=== PATIENT | female | born 1990 | race Caucasian/White ===

== ENCOUNTER 2018-05-05 20:56 | Emergency (ER) | payer MEDICAID, SELFPAY ==
[2018-05-05 20:58] VITALS: BP 139/77; PULSE 115; RESP 20; TEMP 36.7; O2SAT 95; BMI 34.7
[2018-05-05 21:46] LABS: Absolute Lymphocyte Count 2.76 X10^3/ul (0.83-4.51); Absolute Neutrophil Count 6.3 X10^3/uL (2.0-7.7); Basophil# 0.03 X10^3/uL; Basophil% 0.3 % (0-1); Eosinophil# 0.49 X10^3/uL; Eosinophils% 4.7 % (0-5); Hematocrit 37.1 % (37-47); Hemoglobin 12.5 g/dl (12.0-15.0); Lymphocyte # 2.76 X10^3/ul (4.0); Lymphocyte % 26.3 % (19-41); Mean Corp Hgb Conc 33.7 g/gl (32-36); Mean Corpuscular Volume 89.2 fL (81-99); Mean Platelet Vol. 9.9 fl (6.2-12.0); Monocyte# 0.94 X10^3/uL; Neutrophil # 6.26 X10^3/uL (2.7-7.7); Neutrophil % 59.5 % (47-70); Platelet Count 300 K/mm3 (150-450); RBC Distribution Width CV 13.2 % (11.6-14.6); RBC Distribution Width SD 42.5 fl (35.1-43.9); Red Blood Count 4.16 M/mm3 (4.2-5.4); White Blood Count 10.5 K/mm3 (4.4-11.0)
[2018-05-05 21:50] LABS: Differential Indicated SCAN CRITERIA MET; POSITIVE COUNT NO; POSITIVE DIFFERENTIAL NO; POSITIVE MORPHOLOGY YES
[2018-05-05 21:58] LABS: ALB/GLOB Ratio 0.9 RATIO (0.9-2.4); AST(SGOT) 14 U/L (15-37); Alanine Aminotransfer ALT/SGPT 19 U/L (13-56); Albumin, Serum 3.3 g/dL (3.2-5.0); Alkaline Phosphatase 59 U/L (45-117); Anion Gap 7 (5-15); BUN 7 mg/dL (7-18); BUN/Creat Ratio 10.3 RATIO (10-20); Calcium,Total 8.6 mg/dL (8.5-10.1); Chloride 107 mmol/L (98-107); Creatinine, Serum 0.68 mg/dL (0.55-1.02); EST Glomerular Filtration Rate 110 mL/min (>60); Est Glom Filt Rate - Afr Amer 133 mL/min (>60); Estimated Creatinine Clearance 129.87 ml/min; Globulin 3.8 g/dL (2.2-4.2); Glucose 80 mg/dL (74-106); Potassium 3.6 mmol/L (3.5-5.1); Protein, Total 7.1 g/dL (6.4-8.2); Sodium Level 139 mmol/L (136-145)
[2018-05-05 22:09] LABS: Anisocytosis RARE; Platelet Estimate ADEQUATE (ADEQ)
--- NOTE | 2018-05-05 22:13 | ED.VISSUMM ---
- ER Visit Summary Date of Service: 05/05/18 Chief Complaint: Frequent tremors into seizure History of Present Illness: The patient is a 27 F who is unable to give history because she does not have recall. Once boyfriend arrived he informed me she was sitting in the library and had a staring episode followed by startle response and would not speak. She began to have abnormal movement of her hands. He states she is going to have another seizure. She then began to stare. There was no loss of postural tone. When I moved towards her to untie her shoelaces to perform neurologic exam i.e. check for Babinski sign and clonus she had a startle response. She gasped moves all extremities and looked at her boyfriend. He informed me that this is what he observed and labeled as a seizure. Patient was not postictal. She denies headache. She denies visual, ocular auditory symptoms. She denies trouble with speech or swallowing. She denies cardiac respiratory symptoms. Does report nausea without vomiting diarrhea. She does report frequency without dysuria or hematuria. She denies problems with balance or walking. She informed me that she was seen by her OB yesterday who recommended she follow-up with Dr. Duckworth. Patient and boyfriend informed me the soonest available appointment to see Dr. Duckworth is July 15, 2018. Physical Examination: Vital signs noted and blood pressure is elevated and heart rate is elevated. Head is atraumatic normocephalic. Pupils are equal round reactive. Extraocular muscles are intact. TMs are pearly white with landmarks noted. Nares patent with no drainage. Posterior pharynx without erythema or exudate. Uvula is midline. There is no dysphonia or dysphasia. Trachea is midline. There is no stridor with auscultation of the neck. Heart is regular without murmur, gallop or rub. S1 and S2 are normal. Lungs are clear to auscultation with good movement of air bilaterally. Abdomen is soft nontender bowel sounds are present normal. Uterus is not palpable. She reports twin gestation 10 weeks. There is no CVA tenderness. She is alert oriented. There is poverty of speech. She is vague in responses as well. Motor is 5/5. Sensations intact. DTRs are 1+ at the biceps, brachialis, triceps, patella and ankle. There is no clonus or Babinski sign. Cranial nerves II through XII intact. Cerebellar testing with finger-nose to finger was performed adequately. Test Results: CBC and conference of metabolic panel are normal. Emergency Department Course and Treatment: The patient's unusual symptoms concerned she may have what right abnormality. She reported compliance with medication I was informed by her nurse that she has been seen with similar presentation and at that that time denied taking her medicines. Treatment Plan: What was observed are not seizures. Believe this is a stress response for undetermined reason since patient denies anxiety or stress. As noted she would have abnormal movement of her fingers and hands began to breathe more rapidly and then stared followed by a startle response with no loss of postural tone and no postictal state. In my professional medical opinion this does not represent a seizure. Disposition: Discharged to home to follow-up with counseling center Impression: Stress reaction for undetermined reason History of seizure disorder This note was generated with Wetradetogether dictation software. It may contain incorrect words, spelling, and punctuation that were not noted in review of the chart prior to signing ED Disposition - Plan for ED Patient: Disposition: Home or Assisted Living Chief Complaint: Seizure Instructions: ED Stress React Referrals: Care Physician,No Primary [Primary Care Provider] - Nikunj Tate [STAFF PHYSICIAN] - Keep Dasia appointment Declan Duckworth MD [STAFF PHYSICIAN] - Keep Dasia appointment
== END 2018-05-05 22:34 | disposition home or self-care (01) ==
PROVIDERS: Emergency Provider Emergency Medicine
DX: F43.0 Acute stress reaction (principal); G40.909 Epilepsy, unspecified, not intractable, without status epilepticus; E66.9 Obesity, unspecified; Z68.34 Body mass index [BMI] 34.0-34.9, adult
CPT/HCPCS: 80053; 85025; 99283; A4216

== ENCOUNTER 2018-08-13 18:15 | Outpatient (CLI) | payer MEDICAID, SELFPAY ==
[2018-08-13 18:44] VITALS: BMI 34.2
--- NOTE | 2018-08-14 02:52 | OB.TRI.NOTE ---
- Problem List (1) Dichorionic diamniotic twin in second trimester Status: Acute (2) Epilepsy affecting in second trimester Status: Acute History of Present Illness Date of Service: 08/13/18 Was patient seen by the physician?: Yes Reason For Visit: RULE OUT WELL-BEING Date of Service: 08/13/18 Final QUYEN: 12/05/18 Final QUYEN Source: US <20 weeks Gestational age: 23 Weeks and 6 Days History of Present Illness: Patient presents to triage with her . He reports that she has a history of epilepsy and has been having more frequent seizures. Her neurologist is through [facility] and per the patient and her , the next appointment they have with him is not until December. Per patient's , the neurologist won't see her because she is and they told us she couldn't be on medications. Patient's reports she usually has seizures weekly, but this week she has had two seizures. He was out at the store and came home to find the patient on the bedroom floor - she came to within 15 minutes of him being home. He anticipated that she had a seizure when he was gone. Patient denies remembering having a seizure. Patient is lucid, able to answer questions and denies any abdominal pain or discomforts. Patient denies vaginal bleeding or vaginal discharge. Patient's brought her in just to make sure the babies are okay. Patient is currently 24+ weeks with known di/di twin gestation . Allergies No Known Allergies Allergy (Verified 08/13/18 19:46) Review of Systems Constitutional: Denies: Chills, Fever, Weakness HEENT: Denies: Head Aches, Sinus Congestion, Sinus Drainage, Visual Changes Cardiovascular: Denies: Chest Pain, Orthopnea, Palpitations, Syncope Respiratory: Denies: Cough, Shortness of breath at rest, Sputum production Gastrointestinal: Denies: Abdominal Pain, Nausea, Vomiting Genitourinary: Denies: Dysuria, Frequency, Incontinence Gynecological: Denies: Vaginal bleeding, Vaginal discharge Musculoskeletal: Denies: Joint Pain, Joint Tenderness Skin: Denies: Rash, Wounds Neurological: Denies: Numbness, Tingling, Focal weakness Psychiatric: Denies: Anxiety, Depression, Homicidal Ideations, Suicidal Ideations Hematologic/ Lymphatic: Denies: Easy Bruising, Easy Bleeding Physical Exam Vitals: see nursing assessment for vital signs - normotensive and afebrile General: Alert, Oriented x3, Cooperative, No apparent distress Cardiovascular: Regular rate, Regular Rhythm Lungs: Normal air movement Abdomen: Soft, Non Tender, Non-Distended, Gravid Extremities:: No edema Neurological: Cranial nerves II-XII grossly intact, Deep Tendon Reflexes 2+/4 and Symmetrical Presentation: Unable to assess - SVE deferred - variable lie noted on ultrasound NST - FHR Rate Baby A Baseline: 150 Variability:: Moderate Accelerations:: None Decelerations:: None NST Reactive:: Yes, Appropriate for gestational age FHR Category:: Category I Uterine Activity:: None noted on tocometer - FHR Rate Baby B Baseline: 145 Variability:: Moderate Accelerations:: None Decelerations:: None NST Reactive:: Yes, Appropriate for gestational age FHR Category:: Category I Uterine Activity:: None noted on tocometer Impression/Plan 28 y/o @ 24+ weeks, Di/Di Twin Gestation, s/p epileptic seizure, Category I FHT P: 1) Consultation with Dr. Mijares OB back-up - as NST is category I tracing for both twins, patient can be discharged to home at this time 2) Patient has pending appt on 08/17/18 at [facility] with [facility] provider re: Hx of Epilepsy and Twin . Anticipate discussion at that visit re: reinitiating antiseizure medications with option for referral to [facility] neurologist who feels more comfortable managing patients 3) Discharge patient to home with FKC and PTL precautions. Beena HUDSON
--- NOTE | 2018-08-14 03:00 | OB.TRI.HP_ITS ---
- Problem List (1) Dichorionic diamniotic twin in second trimester Status: Acute (2) Epilepsy affecting in second trimester Status: Acute History of Present Illness Date of Service: 08/13/18 Was patient seen by the physician?: Yes Reason For Visit: RULE OUT WELL-BEING Date of Service: 08/13/18 Final QUYEN: 12/05/18 Final QUYEN Source: US <20 weeks Gestational age: 23 Weeks and 6 Days History of Present Illness: Patient presents to triage with her . He reports that she has a history of epilepsy and has been having more frequent seizures. Her neurologist is through [facility] and per the patient and her , the next appointment they have with him is not until December. Per patient's , the neurologist won't see her because she is and they told us she couldn't be on medications. Patient's reports she usually has seizures weekly, but this week she has had two seizures. He was out at the store and came home to find the patient on the bedroom floor - she came to within 15 minutes of him being home. He anticipated that she had a seizure when he was gone. Patient denies remembering having a seizure. Patient is lucid, able to answer questions and denies any abdominal pain or discomforts. Patient denies vaginal bleeding or vaginal discharge. Patient's brought her in just to make sure the babies are okay. Patient is currently 24+ weeks with known di/di twin gestation . Allergies No Known Allergies Allergy (Verified 08/13/18 19:46) Review of Systems Constitutional: Denies: Chills, Fever, Weakness HEENT: Denies: Head Aches, Sinus Congestion, Sinus Drainage, Visual Changes Cardiovascular: Denies: Chest Pain, Orthopnea, Palpitations, Syncope Respiratory: Denies: Cough, Shortness of breath at rest, Sputum production Gastrointestinal: Denies: Abdominal Pain, Nausea, Vomiting Genitourinary: Denies: Dysuria, Frequency, Incontinence Gynecological: Denies: Vaginal bleeding, Vaginal discharge Musculoskeletal: Denies: Joint Pain, Joint Tenderness Skin: Denies: Rash, Wounds Neurological: Denies: Numbness, Tingling, Focal weakness Psychiatric: Denies: Anxiety, Depression, Homicidal Ideations, Suicidal Ideations Hematologic/ Lymphatic: Denies: Easy Bruising, Easy Bleeding Physical Exam Vitals: see nursing assessment for vital signs - normotensive and afebrile General: Alert, Oriented x3, Cooperative, No apparent distress Cardiovascular: Regular rate, Regular Rhythm Lungs: Normal air movement Abdomen: Soft, Non Tender, Non-Distended, Gravid Extremities:: No edema Neurological: Cranial nerves II-XII grossly intact, Deep Tendon Reflexes 2+/4 and Symmetrical Presentation: Unable to assess - SVE deferred - variable lie noted on ultrasound NST - FHR Rate Baby A Baseline: 150 Variability:: Moderate Accelerations:: None Decelerations:: None NST Reactive:: Yes, Appropriate for gestational age FHR Category:: Category I Uterine Activity:: None noted on tocometer - FHR Rate Baby B Baseline: 145 Variability:: Moderate Accelerations:: None Decelerations:: None NST Reactive:: Yes, Appropriate for gestational age FHR Category:: Category I Uterine Activity:: None noted on tocometer Impression/Plan 28 y/o @ 24+ weeks, Di/Di Twin Gestation, s/p epileptic seizure, Category I FHT P: 1) Consultation with Dr. Mijares OB back-up - as NST is category I tracing for both twins, patient can be discharged to home at this time 2) Patient has pending appt on 08/17/18 at [facility] with [facility] provider re: Hx of Epilepsy and Twin . Anticipate discussion at that visit re: reinitiating antiseizure medications with option for referral to [facility] neurologist who feels more comfortable managing patients 3) Discharge patient to home with FKC and PTL precautions. Beena HUDSON
--- OUTSIDE RECORDS SUMMARY | 2018-10-17 10:34 | XMS RPT_ITS ---
:1990 Author Organization [facility] Care Team Providers Name Role Phone MIHIR CADET Attending Unavailable MIHIR CADET Attending Unavailable MIHIR CADET Referring Unavailable TOMMY CAMPBELL Attending Unavailable MIHIR CADET Referring Unavailable MIHIR CADET Referring Unavailable MIHIR CADET Attending Unavailable MIHIR CADET Referring Unavailable SHANNAN, TOMMY A Attending Unavailable MIHIR CADET Referring Unavailable MIHIR CADET Attending Unavailable MIHIR CADET Referring Unavailable CAMPBELL, TOMMY A Attending Unavailable MIHIR CADET Referring Unavailable MIHIR CADET Attending Unavailable CAMPBELL, TOMMY A Referring Unavailable CAMPBELL, TOMMY A Referring Unavailable CAMPBELL, TOMMY A Attending Unavailable CAMPBELL, TOMMY A Referring Unavailable Gagandeep Herring Attending Unavailable Gagandeep Herring Referring Unavailable Primay Care Physicia, No Primary Care Unavailable Nga Soares Attending Unavailable Nga Soares Referring Unavailable Primay Care Physicia, No Primary Care Unavailable Primay Care Physicia, No Primary Care Unavailable Astudillo Olaf Attending Unavailable PROBLEMS PROBLEMS DATE TYPE CONDITION / CODE ATTENDING STATUS SOURCE 07/14/2018 Active Twin , NA Active [facility] dichorionic/diamni [place] otic, unspecified Repository trimester / O30.049(ICD-10) 08/11/2018 Active Maternal care for NA Active [facility] other known or [place] suspected poor Repository growth, second trimester, fetus 1 / O36.5921(ICD-10) 08/11/2018 Active 23 weeks gestation NA Active [facility] of / [place] Z3A.23(ICD-10) Repository 08/11/2018 Active Twin , NA Active [facility] dichorionic/diamni [place] otic, third Repository trimester / O30.043(ICD-10) 05/26/2018 Active Twin , NA Active [facility] dichorionic/diamni [place] otic, first Repository trimester / O30.041(ICD-10) 05/26/2018 Active Encounter for NA Active [facility] supervision of [place] other normal Repository , first trimester / Z34.81(ICD-10) 05/26/2018 Active 12 weeks gestation NA Active [facility] of / [place] Z3A.12(ICD-10) Repository 05/26/2018 Active Encounter for NA Active [facility] [place] screening, Repository unspecified / Z36.9(ICD-10) 05/03/2018 Active Unknown / MIHIR CADET Active [facility] UNK(Unknown) [place] Repository PROCEDURES PROCEDURES No Procedure Records FoundRESULTS RESULTS PROGRESS Observed: 08/17/2018 Status: COMPLETED Source: [place] 11:02 AM [facility] REPOSITORY HNO ID: [id number] Author: Tommy Campbell Service: (none) Author Type: Physician Type: Progress Notes Filed: 08/17/2018 11:56 AM Note Text: E and M note: Hedy Haji is a pleasant, 28 year old female, , currently with an Estimated Date of Delivery: 12/05/18, which places her at 24w2d. I reviewed the patient's history: PAST MEDICAL HISTORY Diagnosis Date - Depression - Epilepsy (HCC) - fracture age 10 playground accident right arm PAST SURGICAL HISTORY Procedure Laterality Date - NONE .Obstetric History T3 L3 SAB0 TAB0 Ectopic0 Multiple0 Live Births3 Current Outpatient Prescriptions on File Prior to Visit: calcium carbonate (TUMS ORAL) Take by mouth. ranitidine (ZANTAC) 150 mg tablet Take 1 tablet by mouth twice daily. pyridoxine, vitamin B6, (VITAMIN B-6) 50 mg tablet Take 1 tablet by mouth twice daily. folic acid 1 mg tablet Take 1 tablet by mouth once daily. PNV#16-Iron Fum AND PS-FA-OM-3 35-1-200 mg cap Take 1 tablet by mouth once daily. SOCIAL HISTORY: Patient is single. She smokes socially. Hedy reports her alcohol use as never. FAMILY HISTORY Problem Relation Age of Onset - Diabetes Maternal Grandmother - other (Epilepsy) Mother - Cataract Father Genetic history is negative for aneuploidy, genetic syndromes, inheritable disorders, and/or inborn errors of metabolism Counseling: On 08/17/2018,The ultrasound findings are: Dichorionic Diamniotic twin gestation. breech/ breech presentation. Estimated Date of Delivery: 12/05/18 EGA = 23w3d Fetus: A FGR with EFW < 3 rd% No genetic markers noted in the second trimester scan The anatomy appears normal No stigmata of TORCH infections are noted Umbilical artery Doppler shows diastolic flow The DV a wave is noted No effusions or dysrhythmias are identified. Fetus B: Appropriate growth and amniotic fluid volume. Disconcordant growth is noted at 28 %. No effusions or dysrhythmias are identified. The differential diagnosis includes: A possible issue with twin A such as A constitutionally small fetus Aneuploidy infections (TORCH/Parvo) A genetic syndrome An unrecognized anomaly A placental anomaly leading to placental insufficiency: Placental mosaicism Aneupolidy Structural, vascular,and/or infarctions Evaluation of her labs and discussion of the findings: Component 08/11/2018 Chromosome 21 Negative Chromosome 18 Negative Chromosome 13 Negative Y Chromosome Detected Interpretation (MAT21) Normal Toxo IgM Qual Negative Toxo IgG Qual Negative Rubella IgG, Qual Positive (A) Rubella Antibody, IgG 8.62 CMV IgG Qualitative Negative CMV Antibody, IgG <0.20 CMV IgM, Qual Negative HSV IgG 1 Qualitative Negative HSV IgG 2 Qualitative Negative HSV IgM Qualitative Negative Parvovirus B19 IgG, Qualitative Negative Parvovirus B19, IgM Negative Discussion: - The patient had negative NIPS for aneuploidy screening. The TORCH titers are negative. The limitations of NIPS have been discussed. I explained to her the role of genetic amniocentesis for karyotyping, microarray studies, and PCR for TORCH infections. The risks associated with genetic amniocentesis include: loss, delivery, PPROM, and IUFD were explained. The patient declined invasive genetic testing. - I discussed with her that the anatomy appeared normal in the second trimester scan. There were no apparent stigmata indicating infections. The heart rate was regular without dysrhythmias and falls within the normal range for gestational age. There were no major structural anomalies. There was no evidence of hydrops. - The possible outcomes are: FGR persists and delivery late in the third trimester could be achieved and/or IUFD of twin A. The dichorionic nature of the makes the risk for a compromise in twin B small since there is no vascular communications between the placentas. The risk for IUFD in twin B is as low as 4%. - I discssed with the family the increased possibility for PTD and NICU admission RECOMMENDATIONS: - NIPS and TORCH titers are negative.She Rubella immune - She declined invasive genetic testing (genetic amniocentesis). - I offered her referral to the care center for genetic counseling and she declined - US evaluation of growth after 2 weeks for growth - Weekly BPP including NST after 26 weeks - Weekly Doppler velocimetry after 26 weeks - kick counts - Quit smoking. The risks associated with smoking have been discussed - The risk of IUFD was discussed - I discssed with the family the increased possibility for PTD and NICU admission In addition to the time spent performing today's procedure and discussing risk and benefits of the procedure, I evaluated the patient and spent an additional 15 minutes counseling the patient re: testing and management options and answering her questions. My findings and recommendations will be shared via electronic record or fax/mail. Tommy Campbell MD [id number] PLUS Collected: 08/11/2018 Status: F Source: [place] 3:53 PM [facility] REPOSITORY TYPE CODE TESTS RESULT OUT OF REFERENCE UNITS RANGE LAB CHRM21 Chromosome 21 Negative LAB CHRM18 Chromosome 18 Negative LAB CHRM13 Chromosome 13 Negative LAB CHRMY Y Chromosome Detected LAB CHYINT Y Chromosome See Notes Interp Result Comment: (NOTE) Consistent with a male fetus. LAB AFIND Additional Findings N/A LAB AFINT Additnl Findings Int N/A LAB AFINTE Additnl Findings Nte N/A LAB MTINT MT21 Interpretation See Notes Result Comment: (NOTE) This specimen showed an expected representation of chromosome 21, 18 and 13 material. Clinical correlation is suggested. LAB LDNTE Negotiator Nte See Notes Result Comment: (NOTE) Fraction: 12% LAB MTAPR MT21 Approval See Notes Result Comment: (NOTE) Lucas Cardoza MD, PhD LAB MTMETH Method See Notes Result Comment: (NOTE) Circulating cell-free DNA was purified from the plasma component of maternal blood. The extracted DNA was then converted into a genomic DNA library for aneuploidy analysis of chromosomes 21, 18, and 13 via next generation sequencing.[1] Optional findings based on the test order include sex chromosome aneuploidy (SCA), and enhanced sequencing series (ESS), which will only be reported on as an additional finding when an abnormality is detected. SCA testing includes information on X and Y representation, while ESS testing includes deletions in selected regions (22q, 15q, 11q, 8q, 5p, 4p, 1p) and trisomy of chromosomes 16 and 22. LAB MTABT About See the test Notes Result Comment: (NOTE) The MaterniT(R) 21 PLUS laboratory-developed test (LDT) analyzes circulating cell-free DNA from a maternal blood sample. The test is indicated for use in women with increased risk for chromosomal aneuploidy. Validation data on twin pregnancies is limited and the ability of this test to detect aneuploidy in a triplet has not yet been validated. LAB MTPERF Performance See Notes Result Comment: (NOTE) The performance characteristics of the MaterniT(R) 21 PLUS laboratory-developed test (LDT) have been determined in a clinical validation study with women at increased risk for chromosomal aneuploidy.[1,2,3] LAB MTPERD Performance Data See Notes Result Comment: (NOTE) Trisomy 21 Sensitivity: 99.1%; CI: 96.3-99.8% Trisomy 21 Specificity: 99.9%; CI: 99.6-99.9% Trisomy 18 Sensitivity: >99.9%; CI: 92.4-100.0% Trisomy 18 Specificity: 99.6%; CI: 99.2-99.8% Trisomy 13 Sensitivity: 91.7%; CI: 59.7-99.6% Trisomy 13 Specificity: 99.7%; CI: 99.3-99.9% Y Chromosome Accuracy: 99.4%; CI: 99.0-99.6% LAB MTLMT Limitations See Notes Result Comment: (NOTE) While the results of these tests are highly accurate, discordant results, including inaccurate sex prediction, may occur due to placental, maternal, or mosaicism or neoplasm; vanishing twin; prior maternal organ transplant; or other causes. Sex chromosomal aneuploidies are not reportable for known multiple gestations. These tests are screening tests and not diagnostic; they do not replace the accuracy and precision of diagnosis with CVS or amniocentesis. A patient with a positive test result should be referred for genetic counseling and offered invasive diagnosis for confirmation of test results.[4] A negative result does not ensure an unaffected nor does it exclude the possibility of other chromosomal abnormalities or defects which are not a part of these tests. An uninformative result may be reported, the causes of which may include, but are not limited to, insufficient sequencing coverage, noise or artifacts in the region, amplification or sequencing bias, or insufficient fraction. These tests are not intended to identify pregnancies at risk for neural tube defects or ventral wall defects. Testing for whole chromosome abnormalities (including sex chromosomes) and for subchromosomal abnormalities could lead to the potential discovery of both and maternal genomic abnormalities that could have major, minor, or no, clinical significance. Evaluating the significance of a positive or a non-reportable result may involve both invasive testing and additional studies on the mother. Such investigations may lead to a diagnosis of maternal chromosomal or subchromosomal abnormalities, which on occasion may be associated with benign or malignant maternal neoplasms. These tests may not accurately identify triploidy, balanced rearrangements, or the precise location of subchromosomal duplications or deletions; these may be detected by diagnosis with CVS or amniocentesis. The ability to report results may be impacted by maternal BMI, maternal weight, maternal systemic lupus erythematosus (SLE) and/or by certain pharmaceutical agents such as low molecular weight heparin (for example: Lovenox(R), Xaparin(R), Clexane(R) and Fragmin(R)). The results of this testing, including the benefits and limitations, should be discussed with a qualified healthcare provider. management decisions, including termination of the , should not be based on the results of these tests alone. The healthcare provider is responsible for the use of this information in the management of their patient. LAB MTNTE See Test Note Notes Result Comment: (NOTE) This test was developed and its performance characteristics determined by [facility]. It has not been cleared or approved by the Food and Drug Administration. This test is used for clinical purposes. It should not be regarded as investigational or for research. This laboratory is certified under the Clinical Laboratory Improvement Amendments (CLIA) as qualified to perform high complexity clinical laboratory testing and accredited by the [employer] (CAP). This specimen will be saved until term and can be re-sequenced using the more comprehensive screening test, MaterniT(R) GENOME, according to clinical need. [facility] samples will not be retained beyond 60 days. [facility] patients will have to send a new sample for re-sequencing ([facility] Test Code: 315156). LAB MTREF References See Notes Result Comment: (NOTE) 1. Scotty LAIRD, et al. Ida Med. 2012;14(3):296-305. 2. Scotty LAIRD, et al. Ida Med. 2011;13(11):913-920. 3. Desire JAVED, et al. Prenat Diag. 2013;33(6):591-597. 4. ACOG/SMFM Joint Committee Opinion No. 545, Jun 2012. PARVOVIRUS B19 ABS Collected: 08/11/2018 Status: F Source: [place] 3:52 PM [facility] REPOSITORY TYPE CODE TESTS RESULT OUT OF REFERENCE UNITS RANGE LAB PARVGR Negative Parvo Negative B19 IgG, Qual Result Comment: Absence of any detectable IgG antibodies to the B19 virus. LAB PARIGG Parvovirus B19 IgG 0.10 Result Comment: Index values are interpreted as follows: Negative specimens <0.9 Equivocal specimens 0.9 to 1.1 Positive specimens >1.1 Results were obtained with the Biotrin Parvovirus B19 IgG Enzyme Immunoassay. Values obtained with different manufacturers' assay methods may not be used interchangeably. The magnitude of the reported I gG level cannot be correlated to an endpoint titer. LAB PARVMR Negative Negative Parvo B19 IgM, Qual Result Comment: Absence of any detectable IgM antibodies to the B19 virus. LAB PARIGM Parvovirus B19 IgM 0.14 Result Comment: Index values are interpreted as follows: Negative specimens <0.9 Equivocal specimens 0.9 to 1.1 Positive specimens >1.1 Results were obtained with the Biotrin Parvovirus B19 IgM Enzyme Immunoassay. Values obtained with different manufacturers' assay methods may not be used interchangeably. The magnitude of the reported I gM level cannot be correlated to an endpoint titer. Performed By: #### PARV #### [facility] [address] [place], [place] [address] #### TORGMP #### [address] [address] [phone] [facility] [address] [place], [place] [address] TORCH PANEL IGG/IGM Collected: 08/11/2018 Status: F Source: [place] 3:52 PM [facility] REPOSITORY TYPE CODE TESTS RESULT OUT OF REFERENCE UNITS RANGE LAB TOXMQL Negative Toxo Negative IgM Qual Result Comment: Absence of detectable Toxoplasma gondii IgM antibodies. If exposure to Toxoplasma gondii is suspected despite a negative finding, a second sample should be collected and tested three weeks later. LAB TOXM AU/mL Toxo IgM AB 3.44 Result Comment: AU/mL values are interpreted as follows: Negative <8.0 Equivocal >=8.0 and <10.0 Positive >=10.0 The magnitude of the measured result is not indicative of the amount of antibody present. LAB TOXGQL Negative Negative Toxo IgG Qual Result Comment: Absence of detectable Toxoplasma gondii IgG antibodies. A negative result does not rule out acute infection. The test usually scores negative in infected patients during the incubation period and the early stages of infection. If exposure to Toxoplasma gondii is suspected despite a negative finding, a second sample should be collected and tested one or two weeks later. LAB TOXOG IU/mL Toxoplasma IgG Ab <3.0 Result Comment: IU/mL values are interpreted as follows: Negative <7.2 Equivocal >=7.2 and <8.8 Positive >=8.8 The magnitude of the measured result is not indicative of the amount of antibody present. The concentrations of anti-Toxoplasma gondii IgG in a given specimen determined with assays from different [facility] [employer] can vary due to differences in assay methods and reagent specificity. LAB RUBGQL Negative Abnormal Alert Rubella IgG Positive Ab, Qual Result Comment: Sample is considered positive for IgG antibodies to rubella virus. A positive result indicates previous exposure to Rubella virus or vaccination. LAB RUBQNT Index Value Rubella IgG Ab 8.62 Result Comment: Index values are interpreted as follows: Negative specimens <0.90 Equivocol specimens 0.90 to 0.99 Positive specimens >0.99 The magnitude of the measured result is not indicative of the amount of antibody present. LAB RUBIGM <=19.9 AU/mL Rubella Antibody IgM <10.0 Result Comment: (NOTE) INTERPRETIVE INFORMATION: Rubella Ab, IgM 19.9 AU/mL or less........ Not Detected 20.0-24.9 AU/mL........... Indeterminate-Repeat testing in 10-14 days may be helpful. 25.0 AU/mL or greater..... Detected-IgM antibody to Rubella detected which may indicate a current or recent infection or immunization. Testing immediately post-exposure is of no value without a later convalescent specimen. While the presence of IgM antibodies suggest current or recent infection, low levels of IgM antibodies may occasionally persist for more than 12 months post-infection or immunization. The magnitude of the measured result is not indicative of the amount of antibody present. Performed by [facility], [address] [place] [id number] [email or web address], Augustine Tillman MD, Lab. Director LAB CMVGQL Negative Negative CMV IgG Qual Result Comment: Absence of detectable CMV IgG antibodies. If exposure to CMV is suspected despite a negative finding, a second sample should be collected and tested no less than one or two weeks later. LAB CMVGA U/mL CMV IgG Antibody <0.20 Result Comment: U/mL values are interpreted as follows: Negative: <0.60 Equivocal: >=0.60 to <0.70 Positive: >=0.70 The magnitude of the measured result above the cutoff is not indicative of the amount of antibody present. LAB CMVMR Negative Negative CMV IgM, Qual Result Comment: Absence of detectable CMV IgM antibodies. If clinical exposure to hCMV is suspected despite a negative finding, a second sample should be collected and tested no less than one or two weeks later. LAB CMVM AU/mL CMV IgM Antibody <8.0 Result Comment: AU/mL values are interpreted as follows: Negative: <30.0 Equivocal: >=30.0 to <35.0 Positive: >=35.0 The magnitude of the measured result is not indicative of the amount of antibody present. LAB HSVG1L Negative HSV IgG 1 Qualitative Negative Result Comment: No HSV-1 IgG antibodies detected. Patient is presumed not to have had a previous HSV-1 infection. LAB HSVG1 AI Herpes Simplex IgG 1 <0.2 Result Comment: INDEX VALUES ARE INTERPRETED FOLLOWS: NEGATIVE SPECIMENS <0.9 EQUIVOCAL SPECIMENS 0.9 TO 1.0 POSITIVE SPECIMENS >=1.1 LAB HSVG2L Negative HSV IgG 2 Qualitative Negative Result Comment: No HSV-2 IgG antibodies detected. Patient is presumed not to have had a previous HSV-2 infection. LAB HSVG2 AI Herpes Simplex IgG 2 <0.2 Result Comment: INDEX VALUES ARE INTERPRETED FOLLOWS: NEGATIVE SPECIMENS <0.9 EQUIVOCAL SPECIMENS 0.9 TO 1.0 POSITIVE SPECIMENS >=1.1 LAB HSVMR Negative HSV IgM Qualitative Negative Result Comment: No significant amount of IgM antibodies to HSV-1 or HSV-2 detected. Negative result indicates no current or reactivated infection with HSV-1 or HSV-2. LAB HSVMX 0-0.90 OD Ratio Herpes Simplex 0.14 IgM Result Comment: INDEX VALUES/OD RATIOS ARE INTERPRETED FOLLOWS: NEGATIVE SPECIMENS <=0.90 EQUIVOCAL SPECIMENS 0.91 TO 1.09 POSITIVE SPECIMENS >=1.10 Performed By: #### PARV #### [place] [address] #### TORGMP #### [facility] [address] [place] [address] [phone] [place] [address] PROGRESS Observed: 08/11/2018 Status: COMPLETED Source: [place] 2:30 PM [facility] REPOSITORY O ID: [id number] Author: Tommy Campbell Service: (none) Author Type: Physician Type: Progress Notes Filed: 08/11/2018 2:51 PM Note Text: Dichorionic Diamniotic twin gestation. breech/ breech presentation. Estimated Date of Delivery: 12/05/18 EGA = 23w3d Fetus: A FGR with EFW < 3 rd% No genetic markers noted in the second trimester scan The anatomy appears normal No stigmata of TORCH infections are noted Umbilical artery Doppler shows diastolic flow The DV a wave is noted No effusions or dysrhythmias are identified. Fetus B: Appropriate growth and amniotic fluid volume. Disconcordant growth is noted at 28 %. No effusions or dysrhythmias are identified. The differential diagnosis includes: A possible issue with twin A such as Aneuploidy infections A genetic syndrome An unrecognized anomaly A placental anomaly leading to placental insufficiency: Placental mosaicism Aneupolidy Structural, vascular,and/or infarctions RECOMMENDATIONS - Follow up ultrasound recommended in 3 weeks for growth and evaluation - I need to see the patient on 08/17/2018 for counseling - I ordered NIPS and TORCH titers - I will refer her to the care center for genetic counseling after next visit. - I discussed the plan with Dr Martell PROGRESS Observed: 07/14/2018 Status: COMPLETED Source: [place] 3:06 PM [facility] [place] REPOSITORY HNO ID: [id number] Author: Tommy Campbell Service: (none) Author Type: Physician Type: Progress Notes Filed: 07/14/2018 3:28 PM Note Text: Dichorionic Diamniotic twin gestation with concordant growth. No effusions or dysrhythmias are identified. The amniotic fluid is within normal limits. Evaluation of morphology reveals no evident malformations, effusions or dysrhythmias in both fetuses. Adequate growth is noted in both fetuses Estimated Date of Delivery: 12/05/18 EGA = 19w3d No genetic markers are noted in both fetuses The patient was counseled as to the sonographic findings and the potential for non-visualized malformations.? The sensitivity of ultrasound for malformations is approximately 35% and for Trisomy 21 is approximately 50%.? RECOMMENDATIONS Follow up ultrasound recommended in 4 weeks for growth. SEQUENT SCRN SECOND Collected: 07/08/2018 Status: F Source: [place] [facility] PATIENTS ONLY 1:49 PM [facility] REPOSITORY TYPE CODE TESTS RESULT OUT OF REFERENCE UNITS RANGE LAB SE1PAP MoM 0.95 SE1 KAROLINE A LAB SE2AFP MoM 0.99 SE2 AFP LAB SE2HCG MoM 0.58 SE2 hCG LAB SE2UE3 MoM 1.28 SE2 Unconj uE3 LAB SE2INH MoM 3.36 SE2 Dimrc Inhibin A LAB SE1HCG MoM 0.58 SE1 hCG LAB SE2INT Screen Negative SE2 Interp Screen Negative LAB SE2SDN 1:830 SE2 Scrn Rsk Dn Synd LAB SE2ADN 1:660 SE2 Age Rsk Dn Snyd LAB SE2STS SE2 Scr Rsk 1:5800 Trsmy 13 LAB SE2STR SE2 Scr Rsk <1:92658 Trsmy18 LAB SE2SON SE2 Scr Rsk 1:1700 ONTD LAB SE2RS View Seq Scrn results in Second Trim Scanned Documents link when available. LAB SEQLRV SEQ Staff Reviewed by Review Scott Guzmán MD, PhD ([id number]) Performed By: #### SEQL2 #### [facility] [address] [place], [place] [address] PROGRESS Observed: 05/26/2018 Status: COMPLETED Source: [place] 3:53 PM [facility] REPOSITORY HNO ID: [id number] Author: Tommy Campbell Service: (none) Author Type: Physician Type: Progress Notes Filed: 05/27/2018 2:16 PM Note Text: Dichorionic Diamniotic twin gestation. Both sacs show regular outlines. There are no subchorionic hematomas. Two yolk sacs have been visualized and appear normal. The heart rates are within normal range and no dysrhythmias are noted. The CRL correspond to the gestational age in both fetuses. Estimated Date of Delivery: 12/05/18 EGA = 12w3d Negative NT screen for Trisomy 21 in both fetuses The adnexa are seen bilaterally with no evidence of any pelvic mass. There is no free fluid in the cul-de-sac. The patient was counseled as to the sonographic findings. The limitations of US have been discussed. RECOMMENDATIONS: 1. First trimester screening. Requisition provided. 2. Recommend anatomy scan at 18-20 weeks CBC Collected: 05/26/2018 Status: F Source: [place] 2:20 PM [facility] REPOSITORY TYPE CODE TESTS RESULT OUT OF REFERENCE UNITS RANGE LAB WBC 3.70-11.00 k/uL WBC High 13.25 LAB RBC 3.90-5.20 m/uL RBC 4.07 LAB HGB 11.5-15.5 g/dL Hemoglobin 12.3 LAB HCT 36.0-46.0 % Hematocrit 36.4 LAB MCV 80.0-100.0 fL MCV 89.4 LAB MCH 26.0-34.0 pG MCH 30.2 LAB MCHC 30.5-36.0 g/dL MCHC 33.8 LAB RDWCV 11.5-15.0 % RDW-CV 13.0 LAB PLTCT 150-400 k/uL Platelet Count 288 LAB MPV 9.0-12.7 fL MPV 10.4 LAB ABSNUC <0.01 k/uL Absolute nRBC <0.01 Performed By: #### CBC, SYPHGX, RUBIGG, HBSAG, HIV12C, SEQL1 #### [facility] [address] [phone] SYPHILIS IGG WITH Collected: 05/26/2018 Status: F Source: [facility] 2:20 PM [facility] REPOSITORY TYPE CODE TESTS RESULT OUT OF REFERENCE UNITS RANGE LAB SYPHQL Nonreactive Syphilis IgG, Nonreactive Qual Result Comment: No serological evidence of infection with T. pallidum. LAB SYPHLG AI Syphilis IgG <0.2 Result Comment: Antibody index is interpreted as follows: Non reactive SPECIMENS <=0.8 Weak reactive SPECIMENS 0.9 to 5.9 Reactive SPECIMENS >=6.0 Performed By: #### CBC, SYPHGX, RUBIGG, HBSAG, HIV12C, SEQL1 #### [place] [phone] RUBELLA IGG ANTIBODY Collected: 05/26/2018 Status: F Source: [place] 2:[address] [place] [address] REPOSITORY TYPE CODE TESTS RESULT OUT OF RANGE REFERENCE UNITS LAB RUBGQL Negative Abnormal Rubella IgG Positive Alert Ab, Qual Result Comment: Sample is considered positive for IgG antibodies to rubella virus. A positive result indicates previous exposure to Rubella virus or vaccination. LAB RUBQNT Index Value Rubella IgG Ab 16.70 Result Comment: Index values are interpreted as follows: Negative specimens <0.90 Equivocol specimens 0.90 to 0.99 Positive specimens >0.99 The magnitude of the measured result is not indicative of the amount of antibody present. Performed By: #### CBC, SYPHGX, RUBIGG, HBSAG, HIV12C, SEQL1 #### [place] [address] [place] [phone] HEPATITIS B SURF. AG Collected: 05/26/2018 Status: F Source: [place] 2:20 PM [facility] REPOSITORY TYPE CODE TESTS RESULT OUT OF REFERENCE UNITS RANGE LAB HBSAG Negative Hepatitis B Negative Surf. Ag Performed By: #### CBC, SYPHGX, RUBIGG, HBSAG, HIV12C, SEQL1 #### [address] [id number] [place] [address] HIV 12 COMBO (AG/AB) Collected: 05/26/2018 Status: F Source: [place] 2:20 PM [facility] REPOSITORY TYPE CODE TESTS RESULT OUT OF REFERENCE UNITS RANGE LAB HVAGAB Non Reactive HIV Non Reactive 12 Ag/Ab Result Comment: (NOTE) HIV Information: [place] Rev. Code 3701.243(E): This information has been disclosed to you from confidential records protected from disclosure by state law. You shall make no further disclosure of this information without the specific, written, and informed release of the individual to whom it pertains, or as otherwise permitted by state law. A general authorization for the release of medical or other information is not sufficient for the purpose of the release of HIV test results or diagnoses. Performed By: #### CBC, SYPHGX, RUBIGG, HBSAG, HIV12C, SEQL1 #### [place] [address] [place] [address] SEQUENT SCRN FIRST Collected: 05/26/2018 Status: F Source: [place] [facility] PATIENTS ONLY 2:20 PM [facility] REPOSITORY TYPE CODE TESTS RESULT OUT OF REFERENCE UNITS RANGE LAB SE1PAP MoM 0.97 SE1 KAROLINE A LAB SE1HCG MoM 0.59 SE1 hCG LAB SE1INT Final result pending second Final trimester SE1 result pending sample Interp second trimester sample LAB SE1SDN SE1 Scrn 1:69983 Rsk Dn Synd LAB SE1ADN 1:490 SE1 Age Rsk Dn Synd LAB SE1STR SE1 Scr <1:93908 Rsk Trsmy18 LAB SE1ATR SE1 Age 1:2300 Rsk Trsmy18 LAB SE1RS View Seq Scrn results in First Trim Scanned Documents link when available. LAB SEQLRV SEQ Staff Reviewed by Review Scott Guzmán MD, PhD ([id number]) Performed By: #### CBC, SYPHGX, RUBIGG, HBSAG, HIV12C, SEQL1 #### [facility] [address], [place] [address] TYPE AND SCR,PRENATL Collected: 05/26/2018 Status: F Source: [place] 2:20 PM [facility] REPOSITORY TYPE CODE TESTS RESULT OUT OF REFERENCE UNITS RANGE LAB %ABR B ABO/RH(D) POSITIVE LAB % Antibody NEG Screen Performed By: #### TSPN #### [facility] [address] [place], [place] [address] PROGRESS Observed: 05/10/2018 Status: COMPLETED Source: [place] 4:00 PM [facility] REPOSITORY HNO ID: [id number] Author: Meg Church Service: (none) Author Type: (none) Type: Progress Notes Filed: 05/10/2018 4:00 PM Note Text: Pap logged and normal pap letter sent to patient. Meg Church EMERGENCY DEPARTMENT Observed: 05/05/2018 Status: F Source: [place] 10:20 PM [facility] REPOSITORY [facility] Medical Records Department [address] [place] [address] Emergency Department Summary 05/05/18 2213 MR#: [id number] Acct: [id number] Name: HEDY HAJI Rep #: [id number] : 1990 27 From: Olaf Astudillo MD PCP: Care Physician, No Primary Status: REG ER - ER Visit Summary Date of Service: 05/05/18 Chief Complaint: Frequent tremors into seizure History of Present Illness: The patient is a 27 F who is unable to give history because she does not have recall. Once boyfriend arrived he informed me she was sitting in the library and had a staring episode followed by startle response and would not speak. She began to have abnormal movement of her hands. He states she is going to have another seizure. She then began to stare. There was no loss of postural tone. When I moved towards her to untie her shoelaces to perform neurologic exam i.e. check for Babinski sign and clonus she had a startle response. She gasped moves all extremities and looked at her boyfriend. He informed me that this is what he observed and labeled as a seizure. Patient was not postictal. She denies headache. She denies visual, ocular auditory symptoms. She denies trouble with speech or swallowing. She denies cardiac respiratory symptoms. Does report nausea without vomiting diarrhea. She does report frequency without dysuria or hematuria. She denies problems with balance or walking. She informed me that she was seen by her OB yesterday who recommended she follow-up with Dr. Duckworth. Patient and boyfriend informed me the soonest available appointment to see Dr. Duckworth is July 15, 2018. Physical Examination: Vital signs noted and blood pressure is elevated and heart rate is elevated. Head is atraumatic normocephalic. Pupils are equal round reactive. Extraocular muscles are intact. TMs are pearly white with landmarks noted. Nares patent with no drainage. Posterior pharynx without erythema or exudate. Uvula is midline. There is no dysphonia or dysphasia. Trachea is midline. There is no stridor with auscultation of the neck. Heart is regular without murmur, gallop or rub. S1 and S2 are normal. Lungs are clear to auscultation with good movement of air bilaterally. Abdomen is soft nontender bowel sounds are present normal. Uterus is not palpable. She reports twin gestation 10 weeks. There is no CVA tenderness. She is alert oriented. There is poverty of speech. She is vague in responses as well. Motor is 5/5. Sensations intact. DTRs are 1+ at the biceps, brachialis, triceps, patella and ankle. There is no clonus or Babinski sign. Cranial nerves II through XII intact. Cerebellar testing with finger-nose to finger was performed adequately. Test Results: CBC and conference of metabolic panel are normal. Emergency Department Course and Treatment: The patient's unusual symptoms concerned she may have what right abnormality. She reported compliance with medication I was informed by her nurse that she has been seen with similar presentation and at that that time denied taking her medicines. Treatment Plan: What was observed are not seizures. Believe this is a stress response for undetermined reason since patient denies anxiety or stress. As noted she would have abnormal movement of her fingers and hands began to breathe more rapidly and then stared followed by a startle response with no loss of postural tone and no postictal state. In my professional medical opinion this does not represent a seizure. Disposition: Discharged to home to follow-up with counseling center Impression: Stress reaction for undetermined reason History of seizure disorder This note was generated with Wellation software. It may contain incorrect words, spelling, and punctuation that were not noted in review of the chart prior to signing ED Disposition - Plan for ED Patient: Disposition: Home or Assisted Living Chief Complaint: Seizure Instructions: ED Stress React Referrals: Care Physician,No Primary [Primary Care Provider] - Mihir Cadet [STAFF PHYSICIAN] - Keep Dasia appointment Declan Duckworth MD [STAFF PHYSICIAN] - Keep [facility] appointment What to do if you have Problems For any increased pain, shortness of breath, bleeding, nausea or vomiting, chest pain, or any unexpected problems, contact your Primary Care Provider. Call [facility] ([phone]) or report to the closest Emergency Room. Call 911 if necessary. 05/05/182219 <Electronically signed by Olaf Astudillo MD> Date Olaf Astudillo MD Cosigner Signature (If Indicated): Date CC: No Primary Care Physician; Mihir Cadet; Obey Duckworth CBC W/DIFF, AUTOMATED Collected: 05/05/2018 Status: F Source: [place] 9:33 PM [facility] REPOSITORY TYPE CODE TESTS RESULT OUT OF RANGE REFERENCE UNITS LAB L100.1000 4.4-11.0 K/mm3 Normal WBC 10.5 LAB L100.1200 4.2-5.4 M/mm3 Low RBC 4.16 LAB L100.1300 12.0-15.0 g/dl Normal HGB 12.5 LAB L100.1400 37-47 % Normal HCT 37.1 LAB L100.1500 81-99 fL Normal MCV 89.2 LAB L100.1600 27.0-32.0 pg Normal MCH 30.0 LAB L100.1700 32-36 g/gl Normal MCHC 33.7 LAB L100.1810 11.6-14.6 % Normal RDW CV 13.2 LAB L100.1820 35.1-43.9 fl Normal RDW SD 42.5 LAB L100.1900 150-450 K/mm3 Normal PLT 300 LAB L100.2000 6.2-12.0 fl Normal MPV 9.9 LAB L100.2100 47-70 % Normal NEUT% 59.5 LAB L100.2200 19-41 % Normal LY% 26.3 LAB L100.2300 0-10 % Normal MONO% 9.0 LAB L100.2400 0-5 % Normal EO% 4.7 LAB L100.2500 0-1 % Normal BASO% 0.3 LAB L100.2550 0.0-0.9 % Normal IM GRAN % 0.200 Result Comment: IG% - Immature Granulocytes (promyelocytes, myelocytes and metamyelocytes) > 1% indicates that a LEFT SHIFT is Present. LAB L100.2620 2.0-7.7 X10 3/uL Normal Absolute Neut 6.3 LAB L100.2720 0.83-4.51 X10 3/ul Normal Absolute Lymph 2.76 LAB L100.5500 ADEQ Normal PLT EST ADEQUATE LAB L100.7300 Normal ANISO RARE Performed By: #### L100.0100 #### [facility] [address] [place], [address] COMPREHENSIVE METABOLIC Collected: 05/05/2018 Status: F Source: [facility] 9:33 PM [facility] REPOSITORY TYPE CODE TESTS RESULT OUT OF RANGE REFERENCE UNITS LAB L501.0100 74-106 mg/dL Normal GLU 80 Result Comment: Please note revised GLUCOSE reference range effective 2017. LAB L501.1000 7-18 mg/dL Normal BUN 7 LAB L501.1100 0.55-1.02 mg/dL Normal CREAT,SERUM 0.68 Result Comment: The validity of the calculated GFR AND GFRAA in patients over 70 years has not been determined. Clinical correlation is essential. LAB L501.1110 >60 mL/min Normal EST GFR 110 Result Comment: Non- GFR Calc LAB L501.1115 >60 mL/min Normal EST GFR - AA 133 Result Comment: GFR Calc LAB L501.1255 ml/min Normal Estimated CRCL 129.87 LAB L501.1300 10-20 RATIO BUN/CRE Normal 10.3 LAB L501.1500 6.4-8. g/dL 2 T PROT Normal 7.1 LAB L501.1800 3.2-5. g/dL 0 ALB Normal 3.3 LAB L501.1950 2.2-4. g/dL 2 GLOB Normal 3.8 LAB L501.2000 0.9-2. RATIO 4 A/G Normal 0.9 LAB L501.2200 8.5-10 mg/dL .1 CA Normal 8.6 LAB L501.4100 15-37 U/L Low AST 14 LAB L501.4305 45-117 U/L ALK P Normal 59 LAB L501.4405 13-56 U/L ALT Normal 19 LAB L501.4600 0.20-1 mg/dL .00 T BILI Normal 0.20 LAB L501.5300 136-14 mmol/L 5 NA Normal 139 LAB L501.5600 3.5-5. mmol/L 1 K Normal 3.6 LAB L501.5900 98-107 mmol/L CL Normal 107 LAB L501.6100 21.0-3 mmol/L 2.0 CO2 Normal 25.0 LAB L501.6200 5-15 GAP Normal 7 Performed By: #### L500.4050 #### [facility] [address] [facility] [place], [address] TOXICOLOGY SCREEN,UR Collected: 05/03/2018 Status: F Source: [place] 11:00 AM [facility] REPOSITORY TYPE CODE TESTS RESULT OUT OF REFERENCE UNITS RANGE LAB UPCP2 Negative Negative Phencyclidin e, Urine Result Comment: Cutoff threshold at 25 ng/mL. LAB UBENZ2 Negative Benzodiazepines, Ur Negative Result Comment: Cutoff threshold at 200 ng/mL. LAB UCOC2 Negative Cocaine, Negative Urine Result Comment: Cutoff threshold at 300 ng/mL. LAB UAMPH2 Negative Amphetamines, Urine Negative Result Comment: Cutoff threshold at 1000 ng/mL. LAB UTHC2 Negative Cannabinoids, Urine Negative Result Comment: Cutoff threshold at 50 ng/mL. LAB UOPI2 Negative Opiates, Negative Urine Result Comment: Cutoff threshold at 300 ng/mL. LAB UBARB2 Negative Barbiturates, Urine Negative Result Comment: Cutoff threshold at 200 ng/mL. LAB UETOH <11 mg/dL <11 Ethanol, Urine LAB UOXYC Negative Oxycodone, Negative Urine Result Comment: Cutoff threshold at 100 ng/mL. Comment: Immunoassay screen only. Cross reactivity with other substances can occur with immunoassay screening. Detection of any drug(s) in this urine toxicology panel is presumptive only. These tests are for med ica purposes only and should not be used for compliance monitoring, legal, or forensic use. Samples should be within normal physiological conditions (e.g. pH). This assay does not include adulteration/specimen validity testing. In clinical settings, confirmatory testing is at the practitioner's discretion [1]. If clinically indicated, confirmation by high specificity, quantitative methodology, which includes adulteration/spec imen validity testing, may be requested on the same specimen through Client Services ([phone]) if contacted within 48 hours of initial testing. [1]Substance Abuse and Mental Health Services Administration (2012). Clinical Drug Testing in Primary Care Technical Assistance Publication Series 32. Department of Health and Human Services, [place], p.10. These tests were developed and their performance characteristics determined by [facility]'s [facility] [place] ([facility] They have not been cleared or a pproved by the FDA. [facility] is regulated under CLIA as qualified to perform high complexity testing. These tests are used for clinical purposes. They should not be regarded as investigational or for research. Performed By: #### UTOX2 #### [facility] [address] [id number] Observed: 05/03/2018 Status: F Source: [place] URINE CULTURE 11:00 AM [facility] REPOSITORY Sp. Request/Comment: - Specimen received in preservative Culture Result - <10,000 CFU/ml Three or more organisms, no one type predominant, suggesting contamination during collection. Recollect if clinically indicated. Performed By: #### URCUL #### [facility] i[facility] [place] [address] CYTOLOGY Observed: 05/03/2018 Status: F Source: [place] 10:41 AM [facility] REPOSITORY Specimen originated from [facility] Specimen #: [id number] Submitting Physician: MIHIR CADET MD SPECIMEN SUBMITTED A: CERVICAL, SCREENING, FLUID FINAL DIAGNOSIS A. CERVICAL, SCREENING, FLUID Satisfactory for interpretation. Excess mucus. Negative for intraepithelial lesion or malignancy. Predominance of coccobacilli consistent with shift in vaginal katy. Yudi Morris, MIRIAN(ASCP) (Electronic Signature) CLINICAL DATA ROUTINE EXAM, HPV Testing: Yes, Reflex HPV for ASCUS Date of Last Menstrual Period: 02/28/18 Menstrual History: STAINS A: CERVICAL, SCREENING, FLUID THIN PREP [employer]ODUCTION [employer]AGE MANAGER [address] M.D., Senior Systems Analyst Date of Report: 05/10/2018 Date of Procedure: 05/03/2018 Date of Receipt: 05/04/2018 Submitted by: MIHIR CADET MD Location: [facility] Diagnostic interpretation performed at [facility], [address] [place] [address]. The Pap Smear is a screening test for cervical cancer. False negative results occur with all screening tests, emphasizing the need for rescreening at recommended intervals, and clinical correlation. PROGRESS Observed: 05/03/2018 Status: COMPLETED Source: [place] 9:57 AM [facility] REPOSITORY HNO ID: [id number] Author: Mihir Cadet Service: (none) Author Type: Physician Type: Progress Notes Filed: 05/19/2018 3:19 PM Note Text: INITIAL OB ASSESSMENT Obstetric History T3 L3 SAB0 TAB0 Ectopic0 Multiple0 Live Births3 Name of Baby 1: Corina Date: 09/21/12 GA: 39w0d Delivery: Vaginal, Spontaneous Delivery Apgar1: Not recorded Apgar5: Not recorded Living: Living Name of Baby 2: Edvin Date: 10/20/13 GA: 38w0d Delivery: Vaginal, Spontaneous Delivery Apgar1: 9 Apgar5: 9 Living: Living Name of Baby 3: Not recorded Date: 06/07/17 GA: 39w4d Delivery: Vaginal, Spontaneous Delivery Apgar1: 8 Apgar5: 9 Living: Living SBIRT Hedy Haji was given the 4P's screening tool. Hedy answered as follows: OB Opioid Screening - Last Recorded (since 08/06/2017) Did any of your parents have a problem with alcohol or other drug use? No Does your partner have a problem with alcohol or other drug use? (!) Yes In the past, have you had difficulties in your life because of alcohol or other drugs, including prescription medications? No In the past month have you drunk any alcohol or used other drugs? No Are you taking medication for pain during the either prescribed or not? No Based on the screen and further questions, she is considered at Low risk due to:Low level of use stopped prior to or immediately upon known . Patient has not used in over 6 years. FOB is clean for over 1 year. Positive reinforcement of current behavior. Plan to rescreen early third trimester. Mihir Cadet MD HPI: Hedy Haji is a 27 year old female here to establish Obstetrical Care. No LMP recorded. from OB Dating Form. Complaints: nausea and vomiting, gladis PO was unplanned but accepted. Obstetric History T3 L3 SAB0 TAB0 Ectopic0 Multiple0 Live Births3 Prior : never History of 4th degree laceration: No Patient's Risk Screening for delivery: History of abnormal pap: Yes Prior treatment for cervical dysplasia: none. History of STDs: chlamydia Tobacco use: Yes - 4-6 cigarettes per day Caffeine use: Yes - 2-3 cans pop per day Drug use: No Alcohol use: No Multivitamin with Folic acid: Yes Occupation: unemployed Restoration or heritage: No Would refuse blood transfusion if medically necessary: No No weight on file for this encounter. Patient BMI over 30? Yes Marital Status:Committed relationship PAST MEDICAL HISTORY Diagnosis Date - Depression - Epilepsy (HCC) - fracture age 10 playground accident right arm PAST SURGICAL HISTORY Procedure Laterality Date - NONE Current Outpatient Prescriptions on File Prior to Visit: folic acid 1 mg tablet Take 1 tablet by mouth once daily. levETIRAcetam (KEPPRA) 500 mg tablet Take 500 mg by mouth twice daily. PNV#16-Iron Fum AND PS-FA-OM-3 35-1-200 mg cap Take 1 tablet by mouth once daily. No current facility-administered medications on file prior to visit. Review of Systems: GENERAL: Negative for: Fever or Chills HEENT: Negative for: Headache, Impaired Vision, Ringing in Ears, Nosebleeds NECK: Negative for: Swelling, Pain, Stiffness RESPIRATORY: Negative for: Cough, Shortness of breath, Wheezing GASTROINTESTINAL: Negative for: Heartburn, Constipation, Diarrhea, Blood in stool, Vomiting MUSCULOSKELETAL: Negative for: Muscle or joint pain, stiffness, Joint swelling NEUROLOGIC/PSYCHIATRIC: Negative for: Weakness, Paralysis, Numbness, Tingling, Tremor, Anxiety, Depression, Memory loss SKIN: Negative for: Rash, Itching GENITOURINARY: Negative for: vaginal itching, vaginal discharge, hematuria or dysuria PHYSICAL EXAM: There were no vitals taken for this visit. GENERAL: pleasant female in no apparent distress DERMATOLOGY: Normal, without lesions, non-icteric and non-hirsute NECK: Supple, full range of motion, no adenopathy and thyroid normal CHEST: Normal inspiratory effort BREAST: soft, non-tender, symmetric, no dominant mass, normal nipple-areolar complex, no lymphadenopathy and no nipple discharge ABDOMEN: soft, non-tender and no masses NEURO: alert and oriented x3,exam grossly non-focal PELVIS: External genitalia normal without lesions. Perineal body intact. No vaginal or cervical lesions. Cervix closed. Uterus 9 week size. No adnexal masses or tenderness. Clinical Pelvimetry: Pelvimetry clinically assessed as adequate Limited OB ultrasound exam: single intrauterine and positive cardiac activity ASSESSMENT: 27 year old at 9AND1 wks gestational age PLAN: 1) Patient oriented to practice. Discussed nutrition, folic acid supplementation, dietary guidelines, exercise, smoking, alcohol, caffeine, and drug use. Discussed routine OB labs including STD/HIV. Discussed aneuploidy screening options including serum screening and nuchal translucency. CF carrier screening discussed and declined. 2) NANDV - vitamin B6, laurie capsules AND advised on diet 3) NT ordered 4) See problem list Follow up in 4 weeks or sooner prn. Mihir Cadet MD GC/CHLAMYDIA AMPLIF Collected: 05/03/2018 Status: F Source: [place] 3:59 AM [facility] REPOSIT[facility] TYPE CODE TESTS RESULT OUT OF REFERENCE UNITS RANGE LAB GCCTSR GC/Chlam Amp Cervix Source LAB GCAMPL GC Negative Amplification for Neisseria gonorrhoeae by amplification. LAB CLAMPL Chlamydia Negative Amplif for Chlamydia trachomatis by amplification. Performed By: #### GCCT #### [facility] [address] [address] ALLERGIES ALLERGIES DATE TYPE / CODE NAME / CODE REACTION SEVERITY SOURCE 08/13/2018 Drug No Known Unknown [facility] Allergy/416 Allergies/[id number] Hospital [id number](SNOM 0388(RXNORM) Repository ED CT) Drug NO KNOWN [facility] Class/05353 ALLERGIES [place] 1003(SNOMED Repository CT) ENCOUNTERS ENCOUNTERS ADMIT/DISCHARGE ACCOUNT ADMITTING ENCOUNTER LOCATION SOURCE NUMBER CLASS 08/17/2018/08/17/19 [id number] Ambulatory [address] [place] Repository 08/17/2018/08/18/19 [id number] Ambulatory [address] [place] Repository 08/13/2018/08/13/19 [id number] Ambulatory [address] ing:WPOUTRoom Repository : OBT06 08/11/2018/08/11/19 [id number] Ambulatory [address] [place] Repository 08/11/2018/08/12/19 [id number] Ambulatory [address] [place] Repository 08/11/2018/08/12/19 [id number] Ambulatory [address] [place] Repository 08/01/2018 [id number] Ambulatory [facility] ing:MRI Repository 07/14/2018/07/21/20 [id number] Ambulatory [address] [place] Repository 07/14/2018/07/22/20 [id number] Ambulatory [address] [place] Repository 07/08/2018/07/08/20 [id number] Ambulatory [address] [place] Repository 06/21/2018/06/22/20 [id number] Ambulatory [address] [place] Repository 05/26/2018/05/26/20 [id number] Ambulatory [address] [place] Repository 05/26/2018/06/14/20 [id number] Ambulatory [address] [place] Repository 05/26/2018/05/27/20 [id number] Ambulatory [address] [place] Repository 05/05/2018/05/05/20 [id number] Emergency [address] ing:ED Repository 05/03/2018/05/20/20 [id number] Ambulatory [address] Repository PAYERS PAYERS ENCOUNTER GUARANTOR PAYER SUBSCRIBER SOURCE 08/13/2018 HEDY Keating Primary HEDY Devries [id number] Insurance:CARESOURCEP ADITHYADOB: iglesia Sotelo Number: [id number] [address]Pdu: [id number] Repository Date:2018-08-13P O (HP) [address]ATTN: [place] [address]LV: 08/13/2018 Secondary NOT GIVENUNK [place] Insurance:SELF PAY [facility] Number: Effective Repository Date:2018-08-13 08/01/2018 HEDY Keating Primary HEDY [id number] Insurance:CARESOGREYSON HAJIDOB: iglesia [place] Number: [id number] [facility] Hospital [address]Apj: [id number] Repository Date:2018-07-25 O (HP) [address]ATTN: [place] [address]IN: 08/01/2018 Secondary NOT GIVENUNK [place] Insurance:SELF PAY [facility] Number: Effective Repository Date:2018-07-25 05/05/2018 HEDY [id number] Insurance:CARESOURCANJUM HAJIDOB: iglesia [place] Number: [id number] [facility] Hospital [address]Xah: [id number] Repository Date:2018-05-05P O (HP) [address]ATTN: [place] [address]UC: 05/05/2018 Secondary NOT GIVENUNK [place] Insurance:SELF PAY [facility] Number: Effective Repository Date:2018-05-05
== END 2018-08-13 19:50 | disposition home or self-care (01) ==
LOC: WPOUT 18:28 → OBT 18:29
PROVIDERS: Referring Provider Obstetrics & Gynecology; Visit Provider Obstetrics & Gynecology
DX: O30.042 Twin pregnancy, dichorionic/diamniotic, second trimester (principal); O99.354 Diseases of the nervous system complicating childbirth; G40.909 Epilepsy, unspecified, not intractable, without status epilepticus; Z3A.24 24 weeks gestation of pregnancy
CPT/HCPCS: 59025; 59050; 76815; 99218; G0378

== ENCOUNTER 2018-08-22 11:18 | Emergency (ER) | payer MEDICAID, SELFPAY ==
[2018-08-22 11:19] VITALS: BP 161/83; PULSE 124; RESP 16; TEMP 36.4; O2SAT 98; BMI 34.2
--- NOTE | 2018-08-22 11:50 | RAD_ITS ---
HISTORY: Patient fall and bruised knee COMPARISON: None FINDINGS: # of images incl. paperwork: 4 XR Knee Complete 4 Views or More: Left SOFT TISSUES: Unremarkable. No radiopaque foreign body. BONES: No acute fracture or subluxation. No sclerotic or destructive changes observed. JOINTS: Preservation of the joint space. Articular surfaces are unremarkable. No evidence of knee joint effusion. RAD/Knee 4 or More Views IMPRESSION: Negative. at 1224 Reported and signed by: Raheel Tavarez MD Electronically Signed: Raheel Tavarez, at 12:23 EST Tel , Service support ,
--- NOTE | 2018-08-22 12:08 | ED.VISSUMM ---
- ER Visit Summary Date of Service: 08/22/18 Chief Complaint: Left knee injury History of Present Illness: The patient is a 28 F presenting for evaluation secondary to a left knee injury. Patient reports that she has a history of seizures that are caused by when she gets out of bed too fast or gets stressed. She is not currently on any medications for this secondary to a . She is a at 25 weeks. Patient states that on Wednesday she suffered a seizure, her significant other was able to catch her and somewhat lower her to the ground but her left knee buckled underneath her. Since then she has had a significant amount of pain with walking around. She denies hitting her head. She denies any other injuries at this time. Pain is worse with ambulation. Physical Examination: Patient's triage vitals showed tachycardia in the 120s, upon my evaluation heart rate was around 100. Lower extremity exam shows no pain at the hip ankle or foot. Patient has an abrasion over the knee with a effusion and a reasonable amount of ecchymosis surrounding the knee. There is medial joint line tenderness, Jessica test is negative, patient has no pain with varus stress but has extreme pain with valgus stress. I was not able to identify any gaping of the joints due to the patient's pain. Normal extensor mechanism no crepitus with range of motion. Test Results: Knee x-ray is negative per my personal review for bony injury Emergency Department Course and Treatment: Patient presented secondary to a knee injury. Patient has medial joint line tenderness pain with valgus stress and a effusion with bruising. I am concerned for the possibility of an MCL injury in this patient. Patient will be placed in a knee immobilizer given crutches. She will be given orthopedics with which to follow-up. Disposition: Discharge Impression: 1. Left knee MCL injury This note was generated with [employer]ave dictation software. It may contain incorrect words, spelling, and punctuation that were not noted in review of the chart prior to signing ED Disposition - Plan for ED Patient: Disposition: Home or Assisted Living Chief Complaint: Lower Extremity Injury Diagnosis: Knee MCL sprain Instructions: ED Sprain Knee Referrals: Wood Sanford MD [STAFF PHYSICIAN] - 3-5 Days
== END 2018-08-22 12:55 | disposition home or self-care (01) ==
PROVIDERS: Emergency Provider Emergency Medicine
DX: O99.89 Other specified diseases and conditions complicating pregnancy, childbirth and the puerperium (principal); S83.412A Sprain of medial collateral ligament of left knee, initial encounter; X58.XXXA Exposure to other specified factors, initial encounter; Y93.89 Activity, other specified; Y92.9 Unspecified place or not applicable; O99.352 Diseases of the nervous system complicating pregnancy, second trimester; G40.909 Epilepsy, unspecified, not intractable, without status epilepticus; O99.332 Smoking (tobacco) complicating pregnancy, second trimester; Z3A.25 25 weeks gestation of pregnancy
CPT/HCPCS: 70551; 73564; 99284

== ENCOUNTER → 2018-08-22 15:09 | Outpatient (CLI) | payer MEDICAID, SELFPAY ==
--- NOTE | 2018-08-22 15:16 | MRI_ITS ---
STUDY: MRI BRAIN WITHOUT CONTRAST REASON FOR EXAM: Female, 28 years old. Seizure. TECHNIQUE: Standardized multiplanar fat and water weighted pulse sequences were obtained. COMPARISON: None. FINDINGS: Normal size of the ventricles and extra-axial spaces for the patient's age. Normal white matter tracts of the supratentorial brain. There is no evidence for recent intracranial ischemia or other cause of cytotoxic edema on diffusion weighted imaging (DWI). Normal T2* images of the brain without demonstrated susceptibility artifact. There is no demonstrated hemosiderin stain. Normal bilateral basal ganglia. Normal thalami. There is no extra-axial fluid accumulation. Normal flow voids within the major intracranial circulation suggesting patency by spin echo criteria. Normal sella turcica, pituitary gland, infundibular stalk, optic chiasm and hypothalamus. Normal tectal plate and pineal gland. Normal midbrain, giovanna and medulla. Normal cerebellum. Normal basal cisterns. Normal bilateral temporal bones. Normal bilateral internal auditory canals. No demonstrated orbital abnormality, within the constraints of a routine brain study. Normal visualized paranasal sinuses. Normal calvarium and skull base. Normal visualized soft tissue structures. Normal visualized upper cervical spine. MRI/Brain without Contrast IMPRESSION: No evidence of acute intracranial bleed, mass or ischemia. Electronically Signed: Beny Rooney DO at 23:08 EST , Service support ,
== END ==
PROVIDERS: Referring Provider Psychiatry & Neurology Neurology; Visit Provider Psychiatry & Neurology Neurology
DX: R56.9 Unspecified convulsions (principal)
CPT/HCPCS: 70551

== ENCOUNTER 2018-09-16 12:20 | Outpatient (CLI) | payer MEDICAID, SELFPAY ==
[2018-09-16 12:50] VITALS: BMI 35.3
--- NOTE | 2018-10-18 14:00 | OB.TRI.NOTE ---
- Problem List (1) Dichorionic diamniotic twin in second trimester Status: Acute History of Present Illness Date of Service: 09/16/18 Was patient seen by the physician?: No Reason For Visit: NST Date of Service: 09/16/18 Final QUYEN: 12/05/18 Final QUYEN Source: US <20 weeks Allergies No Known Allergies Allergy (Verified 10/05/18 12:47) NST - FHR Rate Baby A Baseline: 155 Variability:: Moderate Accelerations:: 10 x 10 Decelerations:: None NST Reactive:: Yes - FHR Rate Baby B Baseline: 145 Variability:: Moderate Accelerations:: 10 x 10 Decelerations:: None NST Reactive:: Yes Impression/Plan A: Twin Gestation P: 1) Consulted to review NST, reactive. Ok to D/C home.
== END 2018-09-16 13:25 | disposition home or self-care (01) ==
LOC: WPOUT 12:25 → WP 12:25
PROVIDERS: Referring Provider Obstetrics & Gynecology; Visit Provider Obstetrics & Gynecology
DX: O30.042 Twin pregnancy, dichorionic/diamniotic, second trimester (principal); Z3A.00 Weeks of gestation of pregnancy not specified
CPT/HCPCS: 59025; 59050; 99218; G0378

== ENCOUNTER 2018-09-23 11:30 | Outpatient (CLI) | payer MEDICAID, SELFPAY ==
[2018-09-23 11:43] VITALS: BMI 35.6
--- NOTE | 2018-09-24 17:33 | OB.TRI.NOTE ---
History of Present Illness Date of Service: 09/23/18 Was patient seen by the physician?: No Reason For Visit: NST Date of Service: 09/23/18 Final QUYEN: 12/05/18 Final QUYEN Source: US <20 weeks Gestational age: 29 Weeks and 5 Days Allergies No Known Allergies Allergy (Verified 09/23/18 11:46) NST - FHR Rate Baby A Baseline: 150 Variability:: Moderate Accelerations:: 10 x 10 Decelerations:: None NST Reactive:: Yes, Appropriate for gestational age FHR Category:: Category I Uterine Activity:: irregular - FHR Rate Baby B Baseline: 140 Variability:: Moderate Accelerations:: 10 x 10 Decelerations:: None NST Reactive:: Yes, Appropriate for gestational age FHR Category:: Category I Uterine Activity:: irregular Impression/Plan 28yo Di/di twins @ 29.5 wks with di/di twins with discordant growth 1) NST reactive- dc home
== END 2018-09-23 12:30 | disposition home or self-care (01) ==
LOC: WPOUT 11:32 → OBT 11:33
PROVIDERS: Referring Provider Obstetrics & Gynecology; Visit Provider Obstetrics & Gynecology
DX: O30.043 Twin pregnancy, dichorionic/diamniotic, third trimester (principal); Z3A.29 29 weeks gestation of pregnancy
CPT/HCPCS: 59025; 59050; 99218; G0378

== ENCOUNTER 2018-09-26 10:45 | Outpatient (CLI) | payer MEDICAID, SELFPAY ==
[2018-09-26 13:49] VITALS: BMI 35.6
--- NOTE | 2018-09-28 17:57 | OB.TRI.NOTE ---
- Problem List (1) Dichorionic diamniotic twin in second trimester Status: Acute History of Present Illness Date of Service: 09/26/18 Was patient seen by the physician?: No Reason For Visit: NST Date of Service: 09/26/18 Final QUYEN: 12/05/18 Final QUYEN Source: US <20 weeks Gestational age: 30 Weeks and 2 Days History of Present Illness: 28 y/o di/di twins at 30 wks with IUGR of baby A BPP of baby A was 6/8 so she presents for NST Allergies No Known Allergies Allergy (Verified 09/23/18 11:46) NST - FHR Rate Baby A Baseline: 150 Variability:: Moderate Accelerations:: 10 x 10 Decelerations:: Variable NST Reactive:: Yes, Appropriate for gestational age - FHR Rate Baby B Baseline: 150 Variability:: Moderate Accelerations:: None Decelerations:: Variable NST Reactive:: Non-Reactive Impression/Plan NST for baby A reactive NST for baby B non-reactive Discussed plan of care with Dr. Saavedra with MFM Pt to office for BPP of baby B
== END 2018-09-26 12:15 | disposition home or self-care (01) ==
LOC: WPOUT 10:52 → OBT 10:53
PROVIDERS: Referring Provider Obstetrics & Gynecology; Visit Provider Obstetrics & Gynecology
DX: O36.5931 Maternal care for other known or suspected poor fetal growth, third trimester, fetus 1 (principal); O36.8332 Maternal care for abnormalities of the fetal heart rate or rhythm, third trimester, fetus 2; O30.043 Twin pregnancy, dichorionic/diamniotic, third trimester; Z3A.30 30 weeks gestation of pregnancy
CPT/HCPCS: 59025

== ENCOUNTER 2018-09-30 15:40 | Outpatient (CLI) | payer MEDICAID, SELFPAY ==
[2018-09-30 16:20] VITALS: BMI 35.6
--- NOTE | 2018-10-01 09:02 | OB.TRI.NOTE ---
History of Present Illness Reason For Visit: NST Date of Service: 10/01/18 Final QUYEN: 12/05/18 Final QUYEN Source: US <20 weeks Gestational age: 30 Weeks and 5 Days Allergies No Known Allergies Allergy (Verified 09/30/18 16:21) NST - FHR Rate Baby A Baseline: 150 Variability:: Moderate Accelerations:: 10 x 10 Decelerations:: Variable NST Reactive:: Yes Uterine Activity:: quiet - FHR Rate Baby B Baseline: 160 Variability:: Moderate Accelerations:: 10 x 10 Decelerations:: Variable NST Reactive:: Yes Uterine Activity:: quiet Impression/Plan Reactive NST x2 for di/di twins with baby A IUGR
== END 2018-09-30 17:00 | disposition home or self-care (01) ==
LOC: WPOUT 15:41 → WP 15:42
PROVIDERS: Referring Provider Obstetrics & Gynecology; Visit Provider Obstetrics & Gynecology
DX: O36.5931 Maternal care for other known or suspected poor fetal growth, third trimester, fetus 1 (principal); O30.043 Twin pregnancy, dichorionic/diamniotic, third trimester; Z3A.30 30 weeks gestation of pregnancy
CPT/HCPCS: 59025; 59050; 99218; G0378

== ENCOUNTER 2018-10-05 11:55 | Outpatient (CLI) | payer MEDICAID, SELFPAY ==
[2018-10-05 12:45] VITALS: BMI 35.6
--- NOTE | 2018-10-05 20:14 | OB.TRI.NOTE ---
History of Present Illness Date of Service: 10/05/18 Was patient seen by the physician?: No Reason For Visit: NST Date of Service: 10/05/18 Final QUYEN: 12/05/18 Final QUYEN Source: US <20 weeks Gestational age: 31 Weeks and 2 Days History of Present Illness: Presents today for NST for twin gestation and IUGR Allergies No Known Allergies Allergy (Verified 10/05/18 12:47) NST - FHR Rate Baby A Baseline: 155 Variability:: Moderate Accelerations:: 15 x 15 Decelerations:: None NST Reactive:: Yes FHR Category:: Category I Uterine Activity:: None - FHR Rate Baby B Baseline: 145 Variability:: Moderate Accelerations:: 15 x 15 Decelerations:: None NST Reactive:: Yes FHR Category:: Category I Uterine Activity:: None Impression/Plan A:Di/Di twin gestation IUGR P: 1) Reactive NST 2) D/C home. 3) Continue with current NST schedule.
== END 2018-10-05 12:50 | disposition home or self-care (01) ==
LOC: WPOUT 11:58 → WP 11:59
PROVIDERS: Referring Provider Obstetrics & Gynecology; Visit Provider Obstetrics & Gynecology
DX: O36.5930 Maternal care for other known or suspected poor fetal growth, third trimester, not applicable or unspecified (principal); O30.043 Twin pregnancy, dichorionic/diamniotic, third trimester; Z3A.31 31 weeks gestation of pregnancy
CPT/HCPCS: 59050; 99218; G0378

== ENCOUNTER 2018-10-12 13:54 | Outpatient (CLI) | payer MEDICAID, SELFPAY ==
[2018-10-12 14:10] VITALS: BMI 35.8
--- NOTE | 2018-10-18 14:04 | OB.TRI.NOTE ---
- Problem List (1) Dichorionic diamniotic twin in second trimester Status: Acute History of Present Illness Date of Service: 10/12/18 Was patient seen by the physician?: No Reason For Visit: NST Date of Service: 10/12/18 Final QUYEN: 12/05/18 Final QUYEN Source: US <20 weeks Gestational age: 33 Weeks and 1 Days Allergies No Known Allergies Allergy (Verified 10/05/18 12:47) NST - FHR Rate Baby A Baseline: 145 Variability:: Moderate Accelerations:: 15 x 15 Decelerations:: None NST Reactive:: Yes - FHR Rate Baby B Baseline: 125 Variability:: Moderate Accelerations:: 15 x 15 Decelerations:: None NST Reactive:: Yes Impression/Plan A: Twin Gestation P: 1) NST reactive. Ok to D/C home.
== END 2018-10-12 15:00 | disposition home or self-care (01) ==
LOC: WPOUT 13:55 → WP 13:56
PROVIDERS: Referring Provider Obstetrics & Gynecology; Visit Provider Obstetrics & Gynecology
DX: O30.043 Twin pregnancy, dichorionic/diamniotic, third trimester (principal); Z3A.33 33 weeks gestation of pregnancy
CPT/HCPCS: 59025

== ENCOUNTER 2018-10-19 12:30 | Outpatient (CLI) | payer MEDICAID, SELFPAY ==
[2018-10-19 13:07] VITALS: BMI 36.3
--- NOTE | 2018-10-21 07:47 | OB.TRI.NOTE ---
- Problem List (1) IUGR (intrauterine growth restriction) affecting care of mother Status: Acute (2) Dichorionic diamniotic twin in second trimester Status: Acute History of Present Illness Date of Service: 10/19/18 Reason For Visit: NST Date of Service: 10/19/18 Final QUYEN: 12/05/18 Final QUYEN Source: US <20 weeks Gestational age: 33 Weeks and 4 Days History of Present Illness: Present for NST for di/di twin and IUGR of baby A Allergies No Known Allergies Allergy (Verified 10/05/18 12:47) NST - FHR Rate Baby A NST Reactive:: Yes FHR Category:: Category I - FHR Rate Baby B NST Reactive:: Yes FHR Category:: Category I Impression/Plan NST reactive and reassuring for both baby A and baby B Follow up in office
== END 2018-10-19 13:55 | disposition home or self-care (01) ==
LOC: WPOUT 12:31 → WP 12:32 → OBT 12:42
PROVIDERS: Referring Provider Obstetrics & Gynecology; Visit Provider Obstetrics & Gynecology
DX: O36.5931 Maternal care for other known or suspected poor fetal growth, third trimester, fetus 1 (principal); O30.043 Twin pregnancy, dichorionic/diamniotic, third trimester; Z3A.33 33 weeks gestation of pregnancy
CPT/HCPCS: 59025

== ENCOUNTER 2018-10-24 04:55 | Outpatient (CLI) | payer MEDICAID, SELFPAY ==
--- NOTE | 2018-10-24 20:47 | OB.TRI.NOTE ---
History of Present Illness Date of Service: 10/24/18 Was patient seen by the physician?: No Reason For Visit: NST Date of Service: 10/24/18 Final QUYEN: 12/05/18 Final QUYEN Source: US <20 weeks Gestational age: 34 Weeks and 0 Days History of Present Illness: Patient was seen in office today for visit to receive weekly Biophysical Profile. Patient has known Di/Di Twin and is being followed for IUGR of Twin A. Twin A on BPP today scored 6/8. Recommendation from collaborating physician for patient to have NST today at hospital for further surveillance. Allergies No Known Allergies Allergy (Verified 10/05/18 12:47) Physical Exam Vitals: See Nurse Note for Vitals - Normotensive and Afebrile NST - FHR Rate Baby A Baseline: 130 Variability:: Moderate Accelerations:: 15 x 15 Decelerations:: None NST Reactive:: Yes, Appropriate for gestational age FHR Category:: Category I Uterine Activity:: Uterine irritability noted - FHR Rate Baby B Baseline: 140 Variability:: Moderate Accelerations:: 15 x 15 Decelerations:: None NST Reactive:: Yes, Appropriate for gestational age FHR Category:: Category I Uterine Activity:: Uterine Irritability noted Impression/Plan 28 y/o @ 34 weeks with Di/Di Twin , Twin A with known IUGR, Reactive NST x 2 P: 1) Reactive NST noted x 2 2) Dr. Mijares updated about reactive NST 3) Patient to keep pending NST tomorrow and to have repeat BPP done tomorrow. Beena Tamez APRN-ULISES
== END 2018-10-24 18:45 | disposition home or self-care (01) ==
LOC: WPOUT 17:01 → WP 17:01
PROVIDERS: Referring Provider Obstetrics & Gynecology; Visit Provider Obstetrics & Gynecology
DX: O36.5931 Maternal care for other known or suspected poor fetal growth, third trimester, fetus 1 (principal); O30.043 Twin pregnancy, dichorionic/diamniotic, third trimester; Z3A.34 34 weeks gestation of pregnancy
CPT/HCPCS: 59025; 59050; 99218; G0378

== ENCOUNTER 2018-10-25 14:15 | Outpatient (CLI) | payer MEDICAID, SELFPAY ==
[2018-10-25 14:29] VITALS: BMI 36.2
--- NOTE | 2018-10-25 16:43 | OB.TRI.NOTE ---
History of Present Illness Date of Service: 10/25/18 Was patient seen by the physician?: Yes Reason For Visit: NST TWINS Date of Service: 10/25/18 Final QUYEN Source: US <20 weeks Allergies No Known Allergies Allergy (Verified 10/25/18 14:33) NST - FHR Rate Baby A Baseline: 150 Variability:: Moderate Accelerations:: 15 x 15 Decelerations:: None NST Reactive:: Yes, Appropriate for gestational age FHR Category:: Category I Uterine Activity:: rare ctxs - FHR Rate Baby B Baseline: 145 Variability:: Moderate Accelerations:: 15 x 15 Decelerations:: None NST Reactive:: Yes, Appropriate for gestational age FHR Category:: Category I Impression/Plan 34 1/7 weeks diamniotic/dichorionic twins IUGR of baby A Reactive NST x2 F/u in office for repeat eval tomorrow BPP in office on A 03/02 today
== END 2018-10-25 16:30 | disposition home or self-care (01) ==
LOC: WPOUT 14:18 → WP 14:19
PROVIDERS: Referring Provider Obstetrics & Gynecology; Visit Provider Obstetrics & Gynecology
DX: O36.5931 Maternal care for other known or suspected poor fetal growth, third trimester, fetus 1 (principal); O30.043 Twin pregnancy, dichorionic/diamniotic, third trimester; Z3A.34 34 weeks gestation of pregnancy
CPT/HCPCS: 59025

== ENCOUNTER 2018-10-28 11:23 | Outpatient (CLI) | payer MEDICAID, SELFPAY ==
[2018-10-28 11:25] VITALS: BP 135/76; PULSE 102; RESP 17; TEMP 36.9; O2SAT 96; BMI 36.1
[2018-10-28 12:23] LABS: Absolute Lymphocyte Count 2.04 X10^3/ul (0.83-4.51); Absolute Neutrophil Count 9.8 X10^3/uL (2.0-7.7); Basophil# 0.02 X10^3/uL; Basophil% 0.2 % (0-1); Eosinophils% 0.8 % (0-5); Hematocrit 34.7 % (37-47); Hemoglobin 11.6 g/dl (12.0-15.0); Lymphocyte # 2.04 X10^3/ul (4.0); Lymphocyte % 16.1 % (19-41); Mean Corp Hgb Conc 33.4 g/gl (32-36); Mean Corpuscular Hgb 30.9 pg (27.0-32.0); Mean Corpuscular Volume 92.5 fL (81-99); Mean Platelet Vol. 9.5 fl (6.2-12.0); Monocyte# 0.72 X10^3/uL; Monocyte% 5.7 % (0-10); Neutrophil # 9.77 X10^3/uL (2.7-7.7); Neutrophil % 76.9 % (47-70); Platelet Count 227 K/mm3 (150-450); RBC Distribution Width CV 13.6 % (11.6-14.6); RBC Distribution Width SD 45.4 fl (35.1-43.9); Red Blood Count 3.75 M/mm3 (4.2-5.4); White Blood Count 12.7 K/mm3 (4.4-11.0)
[2018-10-28 12:24] LABS: POSITIVE COUNT NO; POSITIVE DIFFERENTIAL NO; POSITIVE MORPHOLOGY NO
[2018-10-28 12:36] LABS: Mucous, Urine 0 SEEN /hpf (<or=2+); Red Blood Cells-Urine 0 SEEN /hpf (0-5); White Blood Cells 0 SEEN /hpf (0-5)
[2018-10-28 12:39] LABS: ALB/GLOB Ratio 0.7 RATIO (0.9-2.4); AST(SGOT) 22 U/L (15-37); Alanine Aminotransfer ALT/SGPT 20 U/L (13-56); Albumin, Serum 2.6 g/dL (3.2-5.0); Alkaline Phosphatase 113 U/L (45-117); Anion Gap 8 (5-15); BUN 7 mg/dL (7-18); BUN/Creat Ratio 13.3 RATIO (10-20); Calcium,Total 8.4 mg/dL (8.5-10.1); Chloride 110 mmol/L (98-107); Creatinine, Serum 0.53 mg/dL (0.55-1.02); EST Glomerular Filtration Rate 147 mL/min (>60); Est Glom Filt Rate - Afr Amer 178 mL/min (>60); Estimated Creatinine Clearance 165.15 ml/min; Globulin 3.8 g/dL (2.2-4.2); Glucose 88 mg/dL (74-106); Potassium 3.8 mmol/L (3.5-5.1); Protein, Total 6.4 g/dL (6.4-8.2); Sodium Level 141 mmol/L (136-145)
[2018-10-28 12:41] LABS: Color, Urine Yellow (Yellow); Glucose, Dipstick Normal (Normal); Ketone-Dipstick 5 mg/dl (Negative); Leukocyte Esterase-Dipstick Negative /ul (Negative); Nitrite-Dipstick Negative (Negative); Occult Blood-Urine Negative /ul (Negative); Protein-Dipstick 30 mg/dl (Negative); Urine Bilirubin Dipstick Negative (Negative); Urine Clarity Sl. Cloudy (Clear); Urine Urobilinogen Normal (Normal)
[2018-10-28 12:54] LABS: Squamous Epithelial Cells - UA 0-5 SEEN /hpf (5-10)
[2018-10-28 12:55] LABS: Bacteria RARE /hpf (None Seen)
[2018-10-28 13:25] VITALS: BP 121/71; PULSE 90; RESP 18; O2SAT 93
--- NOTE | 2018-10-28 14:04 | ED.VISSUMM ---
- ER Visit Summary Date of Service: 10/28/18 Chief Complaint: Seizure History of Present Illness: The patient is a 28 F who presents with a seizure that occurred today. Patient is approximately 34 weeks . Patient has a history of seizure disorder. states that the seizure lasted approximately 3 minutes and was generalized tonic-clonic seizure. states this is similar to patient's prior seizures. Patient denies any fevers or chills. Patient denies any chest pain or shortness of breath. Patient denies any abnormal vaginal bleeding or discharge. Physical Examination: Vital signs are stable. Patient's blood pressure is normal. Patient is afebrile. Patient is in no acute distress. Cranial nerves II through XII are intact. There are no focal motor or sensory deficits noted. Oral mucosa is pink and moist. Neck is supple. Trachea is midline. No JVD noted. Heart was regular rate and rhythm. Lungs are clear and equal bilateral. Abdomen is soft and nontender. There is a gravid uterus. The remaining physical exam is within normal limits. Test Results: CBC, comprehensive metabolic profile, urinalysis were obtained and were normal. Emergency Department Course and Treatment: Case was discussed with Beena Tamez who is covering for Dr. Vanegas. I feel that this is a seizure from the patient's pre-existing seizure disorder. I do not feel that this is related eclampsia or preeclampsia. Patient will be discharged to labor and delivery for further nonstress testing. Patient and her understood and were agreeable with the plan. All questions were answered. Disposition: Discharge home Impression: 1. Seizure 2. This note was generated with Muzzley dictation software. It may contain incorrect words, spelling, and punctuation that were not noted in review of the chart prior to signing ED Disposition - Plan for ED Patient: Disposition: Home or Assisted Living Diagnosis: Seizure disorder,
--- NOTE | 2018-10-28 14:08 | ED.RN ---
called report to Mariaa in OB.
--- NOTE | 2018-10-28 14:13 | ED.DCSUM_ITS ---
- ER Visit Summary Date of Service: 10/28/18 Chief Complaint: Seizure History of Present Illness: The patient is a 28 F who presents with a seizure that occurred today. Patient is approximately 34 weeks . Patient has a history of seizure disorder. states that the seizure lasted approximat angelina 3 minutes and was generalized tonic-clonic seizure. states this is similar to patient's prior seizures. Patient denies any fevers or chills. Patient denies any chest pain or shortness of breath. Patient denies any abnormal vaginal bleeding or discharge. Physical Examination: Vital signs are stable. Patient's blood pressure is normal. Patient is afebrile. Patient is in no acute distress. Cranial nerves II through XII are intact. There are no focal motor or sensory deficits noted. Oral mucosa is pink and moist. Neck is supple. Trachea is midline. No JVD noted. Heart was regular rate and rhythm. Lungs are clear and equal bilateral. Abdomen is soft and nontender. There is a gravid uterus. The remaining physical exam is within normal limits. Test Results: CBC, comprehensive metabolic profile, urinalysis were obtained and were normal. Emergency Department Course and Treatment: Case was discussed with Beena Tamez who is covering for Dr. Vanegas. I feel that this is a seizure from the patient's pre-existing seizure disorder. I do not feel that this is related eclampsia or preeclampsia. Patient will be discharged to labor and delivery for further nonstress testing. Patient and her understood and were agreeable with the plan. All questions were answered. Disposition: Discharge home Impression: 1. Seizure 2. This note was generated with CloudCheckration software. It may contain incorrect words, spelling, and punctuation that were not noted in review of the chart prior to signing ED Disposition - Plan for ED Patient: Disposition: Home or Assisted Living Diagnosis: Seizure disorder,
--- NOTE | 2018-10-28 18:50 | OB.TRI.HP_ITS ---
- Problem List (1) Status post seizure Status: Acute (2) Dichorionic diamniotic twin in third trimester Status: Acute (3) IUGR (intrauterine growth restriction) affecting care of mother Status: Acute Qualifiers: Fetus number: single or unspecified fetus Trimester: third trimester Qualified Code(s): O36.5930 - Maternal care for other known or suspected poor growth, third trimester, not applicable or unspecified History of Present Illness Date of Service: 10/28/18 Was patient seen by the physician?: No Reason For Visit: NST Date of Service: 10/28/18 Final QUYEN: 12/05/18 Final QUYEN Source: US <20 weeks Gestational age: 34 Weeks and 4 Days History of Present Illness: Patient presented by ambulance to ED after patient's partner called 911 reporting that he thought that patient was having a seizure. Patient's partner reported an unwitnessed seizure - he reports hearing her making moaning noises. He found her on the floor on her abdomen making the moaning sounds. Patient's partner turned her on her side and called for help and an ambulance. Estimated duration of seizure 10-15 minutes. Patient has a known seizure disorde r and has inconsistently seen neurologist during this for her seizures. Patient was seen in ED and cleared by their staff - work-up negative for stroke, pre-eclampsia or other non-OB issues. Patient then sent to [facility] for NST to be done. Allergies No Known Allergies Allergy (Verified 10/25/18 14:33) Laboratory Studies: Laboratory Tests 10/28/18 10/28/18 10/28/18 Range/Units 12:30 12:10 12:10 WBC 12.7 H (4.4-11.0) K/mm3 RBC 3.75 L (4.2-5.4) M/mm3 Hgb 11.6 L (12.0-15.0) g/dl Hct 34.7 L (37-47) % MCV 92.5 (81-99) fL MCH 30.9 (27.0-32.0) pg MCHC 33.4 (32-36) g/gl RDW 13.6 (11.6-14.6) % RDW Differential 45.4 H (35.1-43.9) fl Plt Count 227 (150-450) K/mm3 MPV 9.5 (6.2-12.0) fl Immature Gran % (Auto) 0.300 (0.0-0.9) % Neut % (Auto) 76.9 H (47-70) % Lymph % (Auto) 16.1 L (19-41) % [place] % (Auto) 5.7 (0-10) % Eos % (Auto) 0.8 (0-5) % Baso % (Auto) 0.2 (0-1) % Absolute Neuts (auto) 9.8 H (2.0-7.7) X10^3/uL Absolute Lymphs (auto) 2.04 (0.83-4.51) X10^3/ul Total Counted Not Reportable Sodium 141 (136-145) mmol/L Potassium 3.8 (3.5-5.1) mmol/L Chloride 110 H (98-107) mmol/L Carbon Dioxide 23.0 (21.0-32.0) mmol/L Anion Gap 8 (5-15) BUN 7 (7-18) mg/dL Creatinine 0.53 L (0.55-1.02) mg/dL Estim Creat Clear Calc 165.15 ml/min Est GFR (MDRD) Af Amer 178 (>60) mL/min Est GFR (MDRD) Non-Af 147 (>60) mL/min BUN/Creatinine Ratio 13.3 (10-20) RATIO Glucose 88 (74-106) mg/dL Calcium 8.4 L (8.5-10.1) mg/dL Total Bilirubin 0.20 (0.20-1.00) mg/dL AST 22 (15-37) U/L ALT 20 (13-56) U/L Alkaline Phosphatase 113 (45-117) U/L Total Protein 6.4 (6.4-8.2) g/dL Albumin 2.6 L (3.2-5.0) g/dL Globulin 3.8 (2.2-4.2) g/dL Albumin/Globulin Ratio 0.7 L (0.9-2.4) RATIO Urine Color Yellow (Yellow) Urine Clarity Sl. Cloudy (Clear) Urine pH 7.0 (5.0 - 8.0) Ur Specific [place] 1.010 (1.002-1.030) Urine Protein 30 H (Negative) mg/dl Urine Glucose (UA) Normal (Normal) mg/dl Urine Ketones 5 H (Negative) mg/dl Urine Occult Blood Negative (Negative) /ul Urine Nitrite Negative (Negative) Urine Bilirubin Negative (Negative) mg/dL Urine Urobilinogen Normal (Normal) mg/dl Ur Leukocyte Esterase Negative (Negative) /ul Urine RBC 0 SEEN (0-5) /hpf Urine WBC 0 SEEN (0-5) /hpf Ur Squamous Epith Cells 0-5 SEEN (5-10) /hpf Urine Bacteria RARE (None Seen) /hpf Urine Mucus 0 SEEN (<or=2+) /hpf Review of Systems Unable to obtain accurate/complete ROS d/t: See Nursing Note for ROS Physical Exam Vitals: Vital Signs Temp Pulse Resp BP Pulse Ox 98.4 F 90 18 121/71 H 93 10/28/18 11:25 10/28/18 13:25 10/28/18 13:25 10/28/18 13:25 10/28/18 13:25 See Nursing Note for PE NST - FHR Rate Baby A Baseline: 150 Variability:: Moderate Accelerations:: 15 x 15 Decelerations:: None NST Reactive:: Yes, Appropriate for gestational age FHR Category:: Category I Uterine Activity:: No contractions noted on monitor - FHR Rate Baby B Baseline: 140 Variability:: Moderate Accelerations:: 15 x 15 Decelerations:: None NST Reactive:: Yes, Appropriate for gestational age FHR Category:: Category I Uterine Activity:: No contractions noted on monitor Impression/Plan 28 y/o s/p Seizure, 34+4weeks with Di/Di Twins, Known IUGR of Twin A, Category I FHT x 2 P: 1) Discharge patient to home at this time with seizure, FKC and PTL precautions 2) Patient to keep follow-up visit next Wednesday with physician, repeat NST and BPP ultrasound Beena HUDSON
== END 2018-10-28 15:10 | disposition home or self-care (01) ==
LOC: ED 14:06 → WPOUT 14:22 → WP 14:24
PROVIDERS: Emergency Provider Emergency Medicine; Referring Provider Obstetrics & Gynecology; Visit Provider Obstetrics & Gynecology
DX: O99.353 Diseases of the nervous system complicating pregnancy, third trimester (principal); G40.909 Epilepsy, unspecified, not intractable, without status epilepticus; O36.5931 Maternal care for other known or suspected poor fetal growth, third trimester, fetus 1; O30.043 Twin pregnancy, dichorionic/diamniotic, third trimester; O99.333 Smoking (tobacco) complicating pregnancy, third trimester; Z3A.34 34 weeks gestation of pregnancy
CPT/HCPCS: 59025; 59050; 80053; 81001; 85025; 99218; 99285; A4216; G0378

== ENCOUNTER 2018-11-01 14:47 | Outpatient (CLI) | payer MEDICAID, SELFPAY ==
[2018-11-01 15:00] VITALS: BMI 35.4
[2018-11-01 15:33] VITALS: BP 123/69; PULSE 107; RESP 16; TEMP 36.6; O2SAT 97
--- NOTE | 2018-11-03 13:47 | OB.TRI.NOTE ---
History of Present Illness Reason For Visit: NON STRESS TEST Final UQYEN Source: US <20 weeks Allergies No Known Allergies Allergy (Verified 10/25/18 14:33) Physical Exam Vitals: Vital Signs Temp Pulse Resp BP Pulse Ox 97.9 F 107 H 16 123/69 H 97 11/01/18 15:33 11/01/18 15:33 11/01/18 15:33 11/01/18 15:33 11/01/18 15:33 NST - FHR Rate Baby A Baseline: 145 Variability:: Moderate Accelerations:: 15 x 15 Decelerations:: None NST Reactive:: Yes, Appropriate for gestational age FHR Category:: Category I Uterine Activity:: quiet - FHR Rate Baby B Baseline: 135 Variability:: Moderate Accelerations:: 15 x 15 Decelerations:: None NST Reactive:: Yes, Appropriate for gestational age FHR Category:: Category I Impression/Plan 28 YOF small to , dichorionic diamniotic twin gestation. 35 weeks gestation. Intrauterine growth restriction of twin A
--- NOTE | 2018-11-03 13:50 | OB.TRI.HP_ITS ---
History of Present Illness Reason For Visit: NON STRESS TEST Final QUYEN Source: US <20 weeks Allergies No Known Allergies Allergy (Verified 10/25/18 14:33) Physical Exam Vitals: Vital Signs Temp Pulse Resp BP Pulse Ox 97.9 F 107 H 16 123/69 H 97 11/01/18 15:33 11/01/18 15:33 11/01/18 15:33 11/01/18 15:33 11/01/18 15:33 NST - FHR Rate Baby A Baseline: 145 Variability:: Moderate Accelerations:: 15 x 15 Decelerations:: None NST Reactive:: Yes, Appropriate for gestational age FHR Category:: Category I Uterine Activity:: quiet - FHR Rate Baby B Baseline: 135 Variability:: Moderate Accelerations:: 15 x 15 Decelerations:: None NST Reactive:: Yes, Appropriate for gestational age FHR Category:: Category I Impression/Plan 28 YOF small to , dichorionic diamniotic twin gestation. 35 weeks gestation. Intrauterine growth restriction of twin A
== END 2018-11-01 15:35 | disposition home or self-care (01) ==
LOC: WPOUT 14:48 → OBT 14:49
PROVIDERS: Referring Provider Obstetrics & Gynecology; Visit Provider Obstetrics & Gynecology
DX: O36.5931 Maternal care for other known or suspected poor fetal growth, third trimester, fetus 1 (principal); O30.043 Twin pregnancy, dichorionic/diamniotic, third trimester; Z3A.35 35 weeks gestation of pregnancy
CPT/HCPCS: 59025

== ENCOUNTER 2018-11-04 14:15 | Inpatient (IN) | payer MEDICAID, SELFPAY ==
[2018-11-04] MEDS: Lactated Ringers 1,000 ML 50 ML IV ×2 (14:40→15:50)
[2018-11-04 14:45] VITALS: BMI 35.0
[2018-11-04 15:01] LABS: Absolute Lymphocyte Count 3.71 X10^3/ul (0.83-4.51); Basophil# 0.04 X10^3/uL; Basophil% 0.3 % (0-1); Eosinophils% 0.6 % (0-5); Hematocrit 37.1 % (37-47); Hemoglobin 12.7 g/dl (12.0-15.0); Lymphocyte # 3.71 X10^3/ul (4.0); Lymphocyte % 23.6 % (19-41); Mean Corp Hgb Conc 34.2 g/gl (32-36); Mean Corpuscular Hgb 31.1 pg (27.0-32.0); Mean Corpuscular Volume 90.9 fL (81-99); Mean Platelet Vol. 9.9 fl (6.2-12.0); Monocyte# 0.85 X10^3/uL; Monocyte% 5.4 % (0-10); Neutrophil # 10.95 X10^3/uL (2.7-7.7); Neutrophil % 69.8 % (47-70); Platelet Count 250 K/mm3 (150-450); RBC Distribution Width CV 13.2 % (11.6-14.6); RBC Distribution Width SD 43.6 fl (35.1-43.9); Red Blood Count 4.08 M/mm3 (4.2-5.4); White Blood Count 15.7 K/mm3 (4.4-11.0)
[2018-11-04 15:04] LABS: POSITIVE COUNT NO; POSITIVE DIFFERENTIAL NO; POSITIVE MORPHOLOGY NO
[2018-11-04] MEDS: Oxytocin 30 units/NS 500 ml 30 UNITS/500 ML IV.SOLN IV (15:05)
[2018-11-04] MEDS: Nalbuphine 10 MG/ML Ampul IV (16:23)
--- NOTE | 2018-11-04 17:23 | PCM.HP.OB ---
History Date of Admission: 11/04/18 Final QUYEN: 12/05/18 Final QUYEN Source: US <20 weeks Gestational age: 35 Weeks and 4 Days History of this : This is a 28 year-old, G 4P3 @ 35.4 wks- Di/Di Twins Severe IUGR in twin A- BPP 6/8. Pt feels minimal movement on twin A. Previously received steroids. Plan was for Delivery at 36 weeks however now with two BPPs of 6/8 decision made for IOL. pt was counseled on IOL and agrees to proceed. Both twins Vertex. LAST EFW of twin A was 1507g on 11/01/18. pt was counseled on IOL in [place] vs [place]- pt agrees to [place] and understands possible chance of transport. Allergies No Known Allergies Allergy (Verified 10/25/18 14:33) Home Medications: Home Medications Acetaminophen [Tylenol Extra Strength] 500 mg PO Q6H PRN PRN 09/30/18 Vits [Prenatabs FA] 1 tablet PO DAILY 10/12/18 Omeprazole [Prilosec] 20 mg PO DAILY 10/25/18 Smoking Status: Light Smoker (<10/day) Number of Fetus(es): 2 Heart Tracing: A) 150 mod arnold, + accels- occasional variable. B) 140s mod arnold +accels no decels TOCO Analysis: q2-4min History Past Pregnancies: Past Pregnancies Delivery Date Name GA/Weeks Outcome Route Weight Infant Gender Labor Length Anesthesia Delivery Location Provider FOB Labs: B+, RUB imm, TORCH titers Neg, HIV neg, HEP B neg, GBS pending Expected Infant Delivery Method: Spontaneous Vaginal Review of Systems Constitutional: Denies: Anorexia Cardiovascular: Denies: Chest Pain Gastrointestinal: Denies: Abdominal Pain Physical Exam General: Alert, Oriented x3 Abdomen: Soft, Non-Distended, Gravid Neurological: Cranial nerves II-XII grossly intact Estimated gestational size: Appropriate for gestational size Presentation: Cephalic Cervix Dilation (cm): 4 Station: -1 Effacement (%): 80 Assessment/Plan All Active Problems Dichorionic diamniotic twin in second trimester (Acute) Epilepsy affecting in second trimester (Acute) IUGR (intrauterine growth restriction) affecting care of mother (Acute) Seizure disorder (Acute) (Acute) Status post seizure (Acute) Dichorionic diamniotic twin in third trimester (Acute) This is a 28 year-old, @ 35.4 wks- Di/Di twins with Twin A severe IUGR here for IOL (twin A- minimal FM appreciated and BPP 6/8) 1) admit to L&D 2) monitor FHRs and toco 3) Pitocin 4) epidural 5) GBS rapid pending
[2018-11-04] MEDS: fentaNYL-bupivacaine (epidural) 100 ML BAG EPIDURAL (18:14)
--- NOTE | 2018-11-04 19:00 | PLAC_PTH ---
PATIENT: DELON HAJI LOC: [facility] U#:[id number] AGE/SX: 28/F ROOM: [facility] RE11/04/[address]: [address]. Nga Soares, MDDOB: 1990 BED: 1 DIS: 11/07/2018 SPEC #: [id number] RECD: 11/04/18 20:26 STATUS: RAMONE EDUARD #: [id number] LINDA: 11/04/18 19:[address]: Nga Soares DEPT: SURGICAL PATHOLOGY RECD BY: Nestor Josue ENTERED: 11/07/18 13:02 SP TYPE: PLACENTA OTHR DR: MD Dr. Gagandeep Lewis MD No Primary Care Phys Tissues: Placenta, NOS Procedures: Surgery Specimen Level V HEADER OPERATION: Vaginal delivery PRE-OP DIAGNOSIS: Di/di twins - twin A IUGR TISSUE SUBMITTED: Placenta MICROSCOPIC DIAGNOSIS Dichorionic, diamniotic twin placenta: Placenta A (368 gm): Umbilical cord - trivascular with no inflammation. Placental membranes - no pathologic change. Placental disc - no significant pathologic change. Placenta B (258 gm): Umbilical cord - trivascular with no inflammation. Placental membranes - no pathologic change. Placental disc - mild Martina-Tyron change. AM:saeed 11/08/18 MICROSCOPIC DESCRIPTION Slides are reviewed. GROSS DESCRIPTION SPECIMEN: TWIN PLACENTA / CLINICAL INFORMATION: A. Weight: A - 1.555 kg, B - 2.4 kg B. Gestational Age: 35 weeks C. Sex: A - Female, B - Male PLACENTA A: (with clip) PLACENTAL WEIGHT (POST FIXATION): 368 gm PLACENTAL DIMENSIONS: 16 x 14.5 x 3 cm PLACENTAL SHAPE: Usual ovoid PLACENTAL WEIGHT FOR GESTATIONAL AGE: Within 10-99th percentile (over/under percentile) MEMBRANES - Present A. Insertion: Marginal B. Site of rupture from edge: At edge of placental disc C. Color of membrane: Rogers-edward D. Abnormalities: None UMBILICAL CORD - Present A. Color: Rogers-edward B. Insertion: Eccentric C. Length: 40 cm D. Diameter: 1 cm E. Number of vessels: Three F. Abnormalities: None PLACENTA B: PLACENTAL WEIGHT (POST FIXATION): 258 gm PLACENTAL DIMENSIONS: 19 x 9.5 x 2.5 cm PLACENTAL SHAPE: Usual ovoid PLACENTAL WEIGHT FOR GESTATIONAL AGE: Within 10-99th percentile (over/under percentile) MEMBRANES - Present A. Insertion: Marginal B. Site of rupture from edge: 4.5 cm from edge of placental disc C. Color of membrane: Rogers-edward D. Abnormalities: None UMBILICAL CORD - Present A. Color: Rogers-edward B. Insertion: Marginal C. Length: 42 cm D. Diameter: 1 cm E. Number of vessels: Three F. Abnormalities: None PLACENTAL DISC - Present A. Color of surface: Rogers-edward B. surface abnormalities: None C. Maternal cotyledons: Intact with minimal tears D. Attached retro placental clot: No clot E. Cut surface: Dark red and spongy F. Lesions: None G. Separate clot: Absent SECTIONS SUBMITTED: 1. Umbilical cord 2. Membrane roll 3. Placental disc A 4. Placental disc A 5. Placental disc A 6. Umbilical cord 7. Membrane roll 8. Placental disc B 9. Placental disc B 10. Placental disc B AM:saeed 11/07/18 TC:5 CPT: 72807 x2
[2018-11-04] MEDS: Oxytocin 30 units/NS 500 ml 30 UNITS/500 ML IV.SOLN 334 UNITS IV (19:02)
--- NOTE | 2018-11-04 19:13 | PCM.OPRPT ---
Vaginal Delivery Maternal Presentation: Medically Indicated Induction Method of Induction: Pitocin, Amniotomy Amniotic Membrane Rupture Type: Artificial Amniotic Fluid Description: Clear Final QUYEN: 12/05/18 Final QUYEN Source: US <20 weeks Gestational age: 35 Weeks and 4 Days Date of Procedure: 11/04/18 Pre-Operative Diagnosis: Di/di twins, Twin A severe IUGR Post-Operative Diagnosis: Same Surgery/ Procedure Performed: Spontaneous Vaginal Delivery Type of Anesthesia: Epidural Description of Procedure: pt was examined in room- found to be 10/100/+3 station- taken to OR for double set up- anesthesia and OR team notified. Back up - Dr. Tate called. Pt was set up in OR room- legs placed in yellow fins- Baby A delivered without difficulty- tight nuchal but delivered through it- baby vigourous at delivery- delayed cord clamping x approx 45seconds performed- cord clamped and infant handed to nursery staff. Twin B amniotic sac palpated- Bedside ultrasound confirms vertex- membranes rupture cleared- Hand presentation noted- Hand was gently pushed back behind baby B head- Gentle pressure given to engage head- twin B delivered with good maternal effort. Delivered with Tight nuchal x 1. Delayed cord clapming performed x approx 30 seconds. cord clamped and cut and handed to nursery team. Placentas delivered without difficulty. vagina intact- no lacerations. Presentation: Vertex Placental Delivery Description: Spontaneous Placenta Disposition: Routine to Lab Cord Vessel Description: 3 Vessels Cord Entanglement: Around neck x 1, tight Estimated Blood Loss: 300 Infant A gender: Female (1 minute): 8 (5 minute): 9 Episiotomy Description: None Laceration: None Medications given after delivery: IV Pitocin Complications: None Baby B - Information Amniotic Membrane Rupture Type: Spontaneous Presentation: Vertex - Operative Information Cord Entanglement: Around neck x 1, tight Cord Vessel Description: 3 Vessels Infant B gender: Male (1 minute): 7 (5 minute): 8
[2018-11-04] MEDS: Oxytocin 30 units/NS 500 ml 30 UNITS/500 ML IV.SOLN 167 UNITS IV (19:32)
[2018-11-05] VITALS (10 sets, daily range): BP systolic 113–130; BP diastolic 55–71; PULSE 84–113; RESP 16–18; TEMP 35.7–36.8; O2SAT 93–99
[2018-11-05 03:29] LABS: Pathology Specimen OB SEE PATHOLOGY REPORT
--- NOTE | 2018-11-05 07:50 | PN.OBGYN_ITS ---
Subjective: pt seen at bedside doing well. pt reports good pain control. lochia mild. urinating w/o difficulty. - Physical Exam General: Alert, Oriented x3 Abdomen: Soft, Non Tender, - - fundus firm Extremities: No Calf Tenderness Vital Signs Temp Pulse Resp BP 96.7 F L 84 18 115/55 L 11/05/18 06:00 11/05/18 06:00 11/05/18 06:00 11/05/18 06:00 Oxygen Delivery Method Room Air Weight: 107.7 kg Body Mass Index (BMI) 35.0 Intake and Output for Last 24 Hours 11/03/18 11/04/18 11/05/18 23:59 23:59 23:59 Intake Total 1744 / 1744 Output Total 100 / 100 900 / 900 Balance -100 / -100 844 / 844 Laboratory Tests Past 24 Hrs 11/04/18 11/04/18 14:40 14:40 WBC 15.7 H RBC 4.08 L Hgb 12.7 Hct 37.1 MCV 90.9 MCH 31.1 MCHC 34.2 RDW 13.2 RDW Differential 43.6 Plt Count 250 MPV 9.9 Immature Gran % (Auto) 0.300 Neut % (Auto) 69.8 Lymph % (Auto) 23.6 [place] % (Auto) 5.4 Eos % (Auto) 0.6 Baso % (Auto) 0.3 Absolute Neuts (auto) 11.0 H Absolute Lymphs (auto) 3.71 Total Counted Not Reportable Blood Type B POSITIVE Antibody Screen NEGATIVE Medical Necessity - Tobacco Use Smoking Status: Light Smoker (<10/day) Assessment/Plan All Active Problems (Last Updated 11/04/18 @ 17:26 by Nga Soares MD) Dichorionic diamniotic twin in second trimester (Acute) Epilepsy affecting in second trimester (Acute) IUGR (intrauterine growth restriction) affecting care of mother (Acute) Seizure disorder (Acute) (Acute) Status post seizure (Acute) Dichorionic diamniotic twin in third trimester (Acute) PPD#1, doing well routine care pain mgmt ambulation
--- NOTE | 2018-11-05 07:52 | DCINST_ITS ---
Discharge Diet: No Restrictions Discharge Activity: Return to Normal Activity, May not drive while taking narcotic pain medications., May Shower May resume sexual activity in: 4-6 weeks Additional Activity Instructions:: Nothing in the vagina for 4-6 weeks. You may return to work/school in 6 weeks. Call your doctor if your incision/area has: Continuous Slow Oozing, Sudden Increased Bleeding, Increased Pain/ Swelling, Increased Redness, Foul Smelling Discharge Additional Instructions: If you experience any of the following, contact your healthcare provider. * Bleeding that soaks a pad every hour for 2 hours * Fever 100.4 or higher * Unrelieved incision or abdominal pain * Swelling, redness, discharge or bleeding from your incision or episiotomy site * Your incision begins to separate * Problems urinating (including inability to urinate or burning while urinating). * Visual changes * Severe headache * Flu-like symptoms * Pain or redness in one of both of your breasts * Pain, warmth, tenderness or swelling in your legs, especially the calf area * Frequent nausea and vomiting * Symptoms of depression or anxiety If you experience any of the following, call 911 or go to the nearest Emergency Room. * Chest pain * Problems breathing * Seizure activity * Partial or complete paralysis of a body part, slurred speech, weakness or drooping of the face, or a sudden inability to walk or hold your balance Allergies/Adverse Reactions: Allergies No Known Allergies Allergy (Verified 10/25/18 14:33) Medications to take at Discharge Acetaminophen [Tylenol] 500 mg PO Q6H PRN PRN 09/30/18 Vits [Prenatabs FA ] 1 tablet PO DAILY 10/12/18 Omeprazole [Prilosec] 20 mg PO DAILY 10/25/18 Ibuprofen [Motrin] 600 mg PO Q6H PRN PRN #30 tablet 11/05/18 The following prescriptions were given: Ibuprofen [Motrin] 600 mg PO Q6H PRN PRN #30 tablet PRN Reason: Mild Pain (1-310) When: Call to make an appointment with your doctor in 6 weeks. If you had elevated Blood Pressure or 4th degree laceration you will need to be seen in 2 weeks. Primary Care Physician: Care Physician,No Primary [Primary Care Provider] - Test Results: Test results from this visit will be discussed in further detail at your follow- up appointment, if applicable.
--- NOTE | 2018-11-05 09:39 | PCM.PN.BLA ---
Progress Note i was notified that patient was having seizure- upon my arrival patient was post ictal. No trauma at time of seizure- was in bed with padded rails. boyfriend witnessed beginning of seizure and called nursing staff. pt boyfriend reports was dx in teens with seizure disorder - on and off medications but reports during was taken off keppra by neurology. Pt has had a few seizures only witness by boyfriend during . VS stable at time of my arrival. pt was in post ictal state but becoming responsive- not oriented to place or time. Consult to Hospitalist Dr. Zarco - also recommend neurology for further recommendations. I personally spoke to Dr. Zarco to review patient with her. will await further recommendations.
--- NOTE | 2018-11-05 10:00 | CASEMGMT ---
SOCIAL WORK NOTE DISCUSSED CASE WITH PATIENT'S NURSE. PATIENT TO BE TRANSFERRED OFF UNIT. IN HOME CAREGIVER TO FOLLOW UP TO COMPLETE ASSESSMENT AND PROVIDE RESOURCES TOMORROW, 11/06/18. JAN HARRELL MSW, B[employer]JO REPAIRER.
--- NOTE | 2018-11-05 10:19 | PN_ITS ---
Subjective: Patient is a 28-year-old female who is para 2. She delivered twins vaginally on 11/04/2018 [facility]. She has a history of seizure disorder for which she has been noncompliant with her medication and does not follow-up with any neurologist.Per discussion with thermal cutter hand, patient stated that she had been told to stop taking care of her during by her neurologist Dr. Duckworth. Hospitalist service was consulted for medical management on account of patient having had a seizure LE this morning around 915. Seizure was witnessed by her fianc? who said it was a generalized tonic-clonic seizure and lasted about 2 minutes. Patient was unaware of seizure. Patient has had numerous seizures throughout her with the last one being about a week ago and she also had one about 2 weeks ago. These were both witnessed by her fianc?. She had no assisted urinary or fecal incontinence. According to her fianc?, patient had been seen in the ED and started on Keppra and was told to follow-up with Dr. Duckworth's office. However, according to patient's fianc?, they were told that the neurologist would not see him until she had delivered the baby. They therefore did not follow-up and patient was not taking any medications throughout the . She has a denied that he had ever been told not to take Keppra during her by her neurologist, though this is what they reportedly told the propagation worker physician. She did not have any elevated blood pressure during the and was also noted to have any evidence of preeclampsia or eclampsia- like elevated proteinuria. She also denies any fever or chills or any urinary symptoms. Hospitalist service was consulted for medical management of seizure. Vitals/I&O's: Vital Signs Temp Pulse Resp BP 96.7 F L 84 18 115/55 L 11/05/18 06:00 11/05/18 06:00 11/05/18 06:00 11/05/18 06:00 Oxygen Delivery Method Room Air Weight: 237 lb 7.005 oz Body Mass Index (BMI) 35.0 Intake and Output for Last 24 Hours 11/03/18 11/04/18 11/05/18 23:59 23:59 23:59 Intake Total 1744 / 1744 Output Total 100 / 100 900 / 900 Balance -100 / -100 844 / 844 General: Alert, Oriented x3, Cooperative, No apparent distress HEENT: Atraumatic, PERRLA, EOMI, Normocephalic Oral: Moist Mucosa Neck: Supple, No JVD, Negative Carotid Bruits Lungs: Clear to auscultation, Normal air movement, No rhonchi, No wheeze, No rales Cardiovascular: Regular rate, Regular Rhythm, Normal S1, Normal S2, No murmurs Abdomen: Bowel Sounds Present, Soft, Non Tender, Non-Distended, No Hepato- splenomegaly Extremities: No clubbing, No cyanosis, No edema, Capillary Refill Less than 3 Seconds Skin: No rashes, No breakdown Musculoskeletal: No Tenderness to Palpation of Joints or Extremities Lymphatic: No Cervical, Supraclavicular, or Inguinal Adenopathy Neurological: Cranial nerves II-XII grossly intact, Neuro grossly intact, Motor Exam 5/5 strength throughout Psych/Mental Status: Normal Affect, Appropriate, Alert and oriented to time, place, person, mood and affect Laboratory Results 11/04/18 14:40: WBC 15.7 H, RBC 4.08 L, Hgb 12.7, Hct 37.1, MCV 90.9, MCH 31.1, MCHC 34.2, RDW 13.2, RDW Differential 43.6, Plt Count 250, MPV 9.9, Immature Gran % (Auto) 0.300, Neut % (Auto) 69.8, Lymph % (Auto) 23.6, [place] % (Auto) 5.4, Eos % (Auto) 0.6, Baso % (Auto) 0.3, Absolute Neuts (auto) 11.0 H, Absolute Lymphs (auto) 3.71, Total Counted Not Reportable 11/04/18 14:40: Blood Type B POSITIVE, Antibody Screen NEGATIVE Current Medications Acetaminophen (Tylenol) 1,000 mg PO Q8H PRN PRN PRN Reason: MILD PAIN (1-3/10) Bisacodyl (Dulcolax) 10 mg RECTAL UD PRN PRN Reason: If no BM Dibucaine (Dibucaine) 1 applic TOPICAL TID PRN PRN; Protocol PRN Reason: Discomfort Hydrocortisone (Hytone) 1 applic TOPICAL TID PRN PRN; Protocol PRN Reason: Discomfort Lactated Ringer's () 1,000 mls @ 0 mls/hr IV .Q0M WILLARD Levetiracetam 750 mg/ Sodium (Chloride) 107.5 mls @ 430 mls/hr IV Q12 WILLARD Ibuprofen (Motrin) 600 mg PO Q6H PRN PRN PRN Reason: MILD PAIN (1-310) Methylergonovine Maleate (Methergine) 0.2 mg IM X1 PRN PRN Reason: Excess bleeding/uterine atony Ondansetron HCl (Zofran) 4 mg IV Q4H PRN PRN PRN Reason: Nausea Oxycodone HCl (Oxyir) 5 - 10 mg PO Q4H PRN PRN PRN Reason: MOD-SEVERE PAIN (-05/04) Senna/Docusate Sodium (Senokot-S, Leidy-Colace) 1 - 2 tablet PO DAILY PRN PRN PRN Reason: Constipation Simethicone (Mylicon) 80 mg PO PCHS PRN PRN Reason: Indigestion/Stomach pain Sodium Chloride () 5 - 15 ml IV UD PRN PRN Reason: SALINE FLUSH Medical Necessity - Tobacco Use Smoking Status: Light Smoker (<10/day) Assessment/Plan All Active Problems (Last Updated 11/04/18 @ 17:26 by Nga Soares MD) Dichorionic diamniotic twin in second trimester (Acute) Epilepsy affecting in second trimester (Acute) IUGR (intrauterine growth restriction) affecting care of mother (Acute) Seizure disorder (Acute) (Acute) Status post seizure (Acute) Dichorionic diamniotic twin in third trimester (Acute) 28-year-old female who delivered twins on 11/04/2018 and subsequently had a seizure on the morning of 11/05/2018. Has a known history of seizure disorder and is noncompliant with the medication. 1. Breakthrough seizures in a patient with known seizure disorder likely due to noncompliance * CBC showed leucocytosis of 15.7, and platelets of 250 * CMP ws only significant for ALP of 118 and low albumin and protein. * UA showed urine protein of 30. Urine protein creatinine ratio ordered and is pending. * per discussion with neurologist will order brain MRI and head and neck MRA and MRV without contrast * start IV keppra; given loading dose of 1000mg, will continue with IV keppra 750mg bid * neurology consulted. * discussed [facility] neurology- keppra safe to use in and with , per review of few studies available. caution adivse whilst , though no risk of harm based on limited human data. * risk of decresed mild production present. * seizure precautions. * neurochecks * IF patient continues having seizures, and goes into status epilepticus, per neurology, to consider transfer to tertiary care center with neuro ICU. * 2. Depression: not on any meds. 3. Para 2: recently delivered twins on 11/04/18. management as per obstetrics team DVT prophylaxis: SCDs Disposition: Patient transferred to PCU for neuro checks and close monitoring and administration of IV Keppra. Thank you for the courtesy of the consult. We will continue to follow with you. Code Visit Inpatient E&M: 19777 Subs Hosp L3
[2018-11-05 10:52] LABS: ALB/GLOB Ratio 0.6 RATIO (0.9-2.4); AST(SGOT) 20 U/L (15-37); Alanine Aminotransfer ALT/SGPT 17 U/L (13-56); Albumin, Serum 2.4 g/dL (3.2-5.0); Alkaline Phosphatase 118 U/L (45-117); Anion Gap 7 (5-15); BUN 5 mg/dL (7-18); BUN/Creat Ratio 8.5 RATIO (10-20); Calcium,Total 8.6 mg/dL (8.5-10.1); Chloride 112 mmol/L (98-107); Creatinine, Serum 0.59 mg/dL (0.55-1.02); EST Glomerular Filtration Rate 130 mL/min (>60); Est Glom Filt Rate - Afr Amer 157 mL/min (>60); Estimated Creatinine Clearance 148.36 ml/min; Globulin 3.7 g/dL (2.2-4.2); Glucose 81 mg/dL (74-106); Protein, Total 6.1 g/dL (6.4-8.2); Sodium Level 141 mmol/L (136-145)
[2018-11-05 11:12] LABS: Mucous, Urine 0 SEEN /hpf (<or=2+)
[2018-11-05 11:19] LABS: Color, Urine Yellow (Yellow); Glucose, Dipstick Normal (Normal); Ketone-Dipstick 5 mg/dl (Negative); Leukocyte Esterase-Dipstick 25 /ul (Negative); Nitrite-Dipstick Negative (Negative); Occult Blood-Urine 250 /ul (Negative); Protein-Dipstick 30 mg/dl (Negative); Urine Bilirubin Dipstick Negative (Negative); Urine Clarity Clear (Clear); Urine Urobilinogen Normal (Normal); Urine pH 6.5 (5.0 - 8.0)
--- NOTE | 2018-11-05 11:22 | MRI_ITS ---
STUDY: MRA OF THE HEAD WITHOUT CONTRAST REASON FOR EXAM: Female, 28 years old. confusion, post seizure, recent vaginal delivery of twins 11/04/18; hx seizure disorder TECHNIQUE: 3-D [id number] (TOF) imaging was performed with MIPs. The study was performed unenhanced. COMPARISON: None. FINDINGS: Normal bilateral petrous carotid arteries. Normal right cavernous carotid artery with a normal supraclinoid bifurcation. Normal left cavernous carotid artery with a normal supraclinoid bifurcation. Normal right A1 segments of the anterior cerebral artery. Normal left A1 segments of the anterior cerebral artery. Normal intact anterior communicating artery (ACOM). Normal bilateral A2 segments of the anterior cerebral arteries. Normal right M1 and M2 segments of the middle cerebral arteries, with a normal M1 bifurcation. Normal left M1 and M2 segments of the middle cerebral arteries, with a normal M1 bifurcation. Normal right posterior communicating artery (PCOM). Normal left posterior communicating artery (PCOM). Normal bilateral vertebral arteries. Normal basilar artery with a normal basilar bifurcation. The visualized bilateral superior cerebellar (SCA) arteries are normal. Normal bilateral P1, P2 and visualized P3 segments of the posterior cerebral arteries. There is no demonstrated aneurysm of the [place]. There is no major vessel occlusion or hemodynamically significant stenosis. There is no demonstrated abnormality of the visualized brain. MRI/MRA Head ONLY without Contrast IMPRESSION: Normal MRA of the head Electronically Signed: Katie Townsend, at 0:49 EDT Tel , Service support ,
--- NOTE | 2018-11-05 11:22 | MRI_ITS ---
STUDY: MRA NECK WITHOUT CONTRAST REASON FOR EXAM: Female, 28 years old. confusion, post seizure, recent vaginal delivery of twins 11/04/18; hx seizure disorder TECHNIQUE: Source images were obtained, MIPs were performed. The study was performed unenhanced. COMPARISON: None. FINDINGS: RIGHT CAROTID ARTERIES: Normal right common carotid artery (CCA). Normal right common carotid bulb. Normal origin of the right internal carotid (ICA) artery without a hemodynamically significant stenosis. Normal visualized cervical portion of the right internal carotid artery. Normal origin of the right external carotid artery (ECA). LEFT CAROTID ARTERIES: Normal left common carotid artery (CCA). Normal left common carotid bulb. Normal origin of the left internal carotid (ICA) artery without a hemodynamically significant stenosis. Normal visualized cervical portion of the left internal carotid artery. Normal origin of the left external carotid artery (ECA). VERTEBRAL ARTERIES: Normal antegrade flow within the bilateral vertebral artery without a hemodynamically significant stenosis. MRI/MRA Neck without Contrast IMPRESSION: Normal bilateral cervical carotid and vertebral arteries. Electronically Signed: Katie Townsend, at 1:06 EDT Tel , Service support ,
--- NOTE | 2018-11-05 11:22 | MRI_ITS ---
STUDY: EXAMINATION - MRV BRAIN WITHOUT CONTRAST REASON FOR EXAM: Female, 28 years old. confusion, post seizure, recent vaginal delivery of twins 11/04/18; hx seizure disorder. TECHNIQUE: 3D [id number]-[id number] (TOF) imaging was performed in a 1.5 bari MRI scanner. COMPARISON: None. FINDINGS: Normal flow within the superior sagittal sinus. Normal flow within the superficial cortical veins. Normal flow within the paired internal cerebral veins, vein of Manoj and straight sinus. Normal flow within the bilateral transverse and sigmoid sinuses. Normal flow within the bilateral jugular bulbs. MRI/MRV Head Without Contrast IMPRESSION: Normal unenhanced MRV of the brain. Electronically Signed: Katie Townsend, at 1:05 EDT Tel , Service support ,
--- NOTE | 2018-11-05 11:22 | MRI_ITS ---
STUDY: MRI BRAIN WITHOUT CONTRAST REASON FOR EXAM: Female, 28 years old. confusion, post seizure, recent vaginal delivery of twins 11/04/18; hx seizure disorder TECHNIQUE: Standardized multiplanar fat and water weighted pulse sequences were obtained. COMPARISON: None. FINDINGS: Normal size of the ventricles and extra-axial spaces for the patient's age. Normal white matter tracts of the supratentorial brain. Normal bilateral basal ganglia. Normal thalami. There is no extra-axial fluid accumulation. Normal flow voids within the major intracranial circulation suggesting patency by spin echo criteria. Normal sella turcica, pituitary gland, infundibular stalk, optic chiasm and hypothalamus. Normal tectal plate and pineal gland. Normal midbrain, giovanna and medulla. Normal cerebellum. Normal basal cisterns. Normal bilateral temporal bones. Normal bilateral internal auditory canals. No demonstrated orbital abnormality, within the constraints of a routine brain study. There is mucoperiosteal inflammatory disease of the paranasal sinuses consistent with mild chronic sinusitis. Normal calvarium and skull base. Normal visualized soft tissue structures. Normal visualized upper cervical spine. MRI/Brain without Contrast IMPRESSION: There is mucoperiosteal inflammatory disease of the paranasal sinuses consistent with mild chronic sinusitis. Electronically Signed: Katie Townsend, at 0:46 EDT Tel , Service support ,
[2018-11-05 11:27] LABS: White Blood Cells 0-5 SEEN /hpf (0-5)
[2018-11-05 11:28] LABS: Bacteria RARE /hpf (None Seen); Red Blood Cells-Urine 50-100 SEEN /hpf (0-5); Squamous Epithelial Cells - UA 0-5 SEEN /hpf (5-10)
[2018-11-05] MEDS: levETIRAcetam IV 1,000 MG/100 ML BAG 400 MG IV (12:08)
[2018-11-05 14:53] LABS: Bacteria 0 SEEN /hpf (None Seen); Mucous, Urine 0 SEEN /hpf (<or=2+)
[2018-11-05 15:06] LABS: Color, Urine Red (Yellow); Glucose, Dipstick Normal (Normal); Ketone-Dipstick Negative (Negative); Leukocyte Esterase-Dipstick 500 /ul (Negative); Nitrite-Dipstick Positive (Negative); Occult Blood-Urine 250 /ul (Negative); Protein-Dipstick 100 mg/dl (Negative); Specific Gravity, Urine 1.005 (1.002-1.030); Urine Bilirubin Dipstick Negative (Negative); Urine Clarity Sl. Cloudy (Clear); Urine Urobilinogen Normal (Normal)
[2018-11-05 15:13] LABS: Protein, Urine (Random) 47.6 mg/dL (<11.9); Protein:Creat Ratio 1789 mg/g CRE (0-200)
[2018-11-05 15:15] LABS: Red Blood Cells-Urine > 100 SEEN /hpf (0-5); Squamous Epithelial Cells - UA 10-25 SEEN /hpf (5-10); White Blood Cells 25-50 SEEN /hpf (0-5)
--- NOTE | 2018-11-05 16:20 | NURSING ---
called to room at 0915 due to pt s/p seizure that started around 911 as stated by boyfriend. pt flaccid and not arousable. heart monitor leads placed and pulse ox=98%. HH=741. dr garcia called. oxygen 5L/NC placed. sinus rythm, 119/54, resp 14. at 0922, dr garcia present to see pt and will order hospitalist consult. at 0925, bp102/42, P110, Resp28, 98%. at 0928, dr garcia left room. at 0935, pt awake. knows her name and that she delivered her babies but does not know where she is or what day it is. at 0940, ttemp98.5 temporal, p106, r16, 98%. pt more awake. at 0945, pt oob to bathroom for void. pt feels stable on her feet and without dizziness. at 0948, dr castillo, hospitalist, present to examine pt but pt in bathroom. at 0950, dr castillo back to see pt. 97% without oxygen, p116, r19. at 1105, report given to OLMAN Guzman on PCU.
--- NOTE | 2018-11-05 18:21 | NURSING ---
at 1120, pt transferred to room 123 via wheelchair in stable condition
--- NOTE | 2018-11-05 18:54 | NURSING ---
SPOKE WITH MD ABOUT PATIENT BEING ABLE TO GO TO [facility]. MD STATED IT WAS OKAY FOR PATIENT TO GO TO [facility] TO SEE HER BABIES FOR 30 MINUTES IF SUPERVISED BY PCU STAFF. WENT INTO PT ROOM TO RELAY INFO TO PATIENT AND TAKE PT TO OB. PT BECAME VERY TEARFUL AND WAS UNDER THE IMPRESSION THAT IF SHE WENT DOWN, SHE WOULD BE DOWN THERE FOR GOOD. EXPLAINED TO PATIENT CONCERNS OF PATIENT BEING IN OB WITHOUT BEING MONITORED FOR SEIZURE ACTIVITY. SIGNIFICANT OTHER IN ROOM AND ASKING FOR OTHER OPTIONS. EXPLAINED CIRCUMSTANCES AND RISKS, PT STATED THAT SHE DID NOT WANT TO GO DOWN AT THIS TIME. PT REMAINS TEARFUL AT THIS TIME.
--- NOTE | 2018-11-05 19:49 | CON.PCM_ITS ---
Problem List (1) Breakthrough seizure Status: Acute (2) Seizure disorder Status: Acute Reason for Consult Date of Consultation: 11/05/18 Reason for Consultation: Seizure History of Present Illness: The patient is a 28 year old F PMH seizure disorder (not on any AEDs), A 0 L3, patient delivered twins yesterday 11/04/2018 later admitted to PCU status post breakthrough seizures. Neurology consulted for further seizure management. History is obtained from patient and medical records. Per documentation patient had a witnessed GT CS this morning 11/05/2018 lasting for about 2 min utes, patient unaware of the seizure, denies any tongue bite or urinary incontinence, was postictal for a few minutes following the seizure. Per patient she has been having seizures since the age of 15 years, has been on multiple AEDs in the past the names of which she does not remember, per patient has been on Keppra for the past 7 years or so but has not been taking any medication for the past 2 years, patient not sure why she is not taking any seizure medication, per patient during the she did not take Keppra, was not seeing any neurologist, in the past per patient used to see a neurologist from the [facility] the name of whom she does not remember. Per patient during the she was having seizures about every 1-1-1/2-month. Per patient she does not drive. Following the seizure this morning 11/05/2018 patient was loaded with 1 g IV Keppra once and started on Keppra 750 IV twice daily. [] Past Medical History Medical History: Medical History (Last Updated 11/04/18 @ 17:26 by Nga Soares MD) Chlamydia A74.9 Depression F32.9 History of drug abuse Z87.898 Allergies No Known Allergies Allergy (Verified 10/25/18 14:33) Home Medications: Ambulatory Orders Medication Instructions Recorded Acetaminophen [Tylenol] 500 mg PO Q6H PRN PRN 09/30/18 Vits [Prenatabs FA ] 1 tablet PO DAILY 10/12/18 Omeprazole [Prilosec] 20 mg PO DAILY 10/25/18 Ibuprofen [Motrin] 600 mg PO Q6H PRN PRN #30 tablet 11/05/18 Lives: With Family Smoking Status: Light Smoker (<10/day) Tobacco Use: Cigarettes Alcohol: None Review of Systems Constitutional: Reports: - - complete ROS negative except as documented in HPI Patient Problems: Active and Suspected Problems (Last Updated 11/04/18 @ 17:26 by Nga Mijares MD) Breakthrough seizure (Acute) - Physical Exam General: Alert HEENT: Normocephalic Neck: Supple Lungs: Normal air movement Cardiovascular: Normal S1, Normal S2 Abdomen: Bowel Sounds Present Extremities: No cyanosis Neurological: Cranial nerves II-XII grossly intact, Deep Tendon Reflexes 2+/4 and Symmetrical, Neuro grossly intact, Motor Exam 5/5 strength throughout, Muscle tone normal, Sensory exam intact to light touch and pain, Coordination normal Psych/Mental Status: Normal Affect Vital Signs Temp Pulse Resp BP Pulse Ox 97.9 F 97 16 113/68 99 11/05/18 17:30 11/05/18 17:30 11/05/18 17:30 11/05/18 17:30 11/05/18 17:30 Oxygen Delivery Method Room Air Weight: 107.7 kg Body Mass Index (BMI) 35.0 Intake and Output for Last 24 Hours 11/03/18 11/04/18 11/05/18 23:59 23:59 23:59 Intake Total 1993 Output Total 100 / 100 900 / 900 Balance -100 / -100 1094 / 1094 Laboratory Tests Past 24 Hrs 11/05/18 11/05/18 11/05/18 10:10 11:00 14:25 Sodium 141 Potassium 4.0 Chloride 112 H Carbon Dioxide 22.0 Anion Gap 7 BUN 5 L Creatinine 0.59 Estim Creat Clear Calc 148.36 Est GFR (MDRD) Af Amer 157 Est GFR (MDRD) Non-Af 130 BUN/Creatinine Ratio 8.5 L Glucose 81 Calcium 8.6 Total Bilirubin 0.10 L AST 20 ALT 17 Alkaline Phosphatase 118 H Total Protein 6.1 L Albumin 2.4 L Globulin 3.7 Albumin/Globulin Ratio 0.6 L Urine Color Yellow Red Urine Clarity Clear Sl. Cloudy Urine pH 6.5 7.0 Ur Specific [place] 1.020 1.005 Urine Protein 30 H 100 H Urine Glucose (UA) Normal Normal Urine Ketones 5 H Negative Urine Occult Blood 250 H 250 H Urine Nitrite Negative Positive H Urine Bilirubin Negative Negative Urine Urobilinogen Normal Normal Ur Leukocyte Esterase 25 H 500 H Urine RBC 50-100 SEEN > 100 SEEN Urine WBC 0-5 SEEN 25-50 SEEN Ur Squamous Epith Cells 0-5 SEEN 10-25 SEEN Urine Bacteria RARE 0 SEEN Urine Mucus 0 SEEN 0 SEEN U Random Total Protein Urine Creatinine Protein/Creatinin Ratio 11/05/18 14:25 Sodium Potassium Chloride Carbon Dioxide Anion Gap BUN Creatinine Estim Creat Clear Calc Est GFR (MDRD) Af Amer Est GFR (MDRD) Non-Af BUN/Creatinine Ratio Glucose Calcium Total Bilirubin AST ALT Alkaline Phosphatase Total Protein Albumin Globulin Albumin/Globulin Ratio Urine Color Urine Clarity Urine pH Ur Specific [place] Urine Protein Urine Glucose (UA) Urine Ketones Urine Occult Blood Urine Nitrite Urine Bilirubin Urine Urobilinogen Ur Leukocyte Esterase Urine RBC Urine WBC Ur Squamous Epith Cells Urine Bacteria Urine Mucus U Random Total Protein 47.6 H Urine Creatinine 26.60 Protein/Creatinin Ratio 1789 H Assessment/Plan All Active Problems (Last Updated 11/04/18 @ 17:26 by Nga Soares MD) Dichorionic diamniotic twin in second trimester (Acute) Epilepsy affecting in second trimester (Acute) IUGR (intrauterine growth restriction) affecting care of mother (Acute) Seizure disorder (Acute) (Acute) Status post seizure (Acute) Dichorionic diamniotic twin in third trimester (Acute) Breakthrough seizure (Acute) The patient is a 28 year old F PMH seizure disorder (not on any AEDs), A 0 L3, patient delivered twins yesterday 11/04/2018 later admitted to PCU status post breakthrough seizures. Neurology consulted for further seizure management. History is obtained from patient and medical records. Per documentation patient had a witnessed GT CS this morning 11/05/2018 lasting for about 2 minutes, patient unaware of the seizure, denies any tongue bite or urinary incontinence, was postictal for a few minutes following the seizure. Per patient she has been having seizures since the age of 15 years, has been on multiple AEDs in the past the names of which she does not remember, per patient has been on Keppra for the past 7 years or so but has not been taking any medication for the past 2 years, patient not sure why she is not taking any seizure medication, per patient during the she did not take Keppra, was not seeing any neurologist, in the past per patient used to see a neurologist from the [facility] the name of whom she does not remember. Per patient during the she was having seizures about every 1-1-1/2-month. Per patient she does not drive. Following the seizure this morning 11/05/2018 patient was loaded with 1 g IV Keppra once and started on Keppra 750 IV twice daily. Impression Breakthrough seizures Plan ?Keppra 750 mg IV twice daily. Side effect discussed in detail with the patient. ?Labs reviewed. UA showed proteinuria, hospitalist discussed the same with [employer] to make sure there is no eclampsia but per hospitalist [employer] is not concerned about eclampsia at present and does not want to treat with magnesium sulfate. Will defer further management of urine proteinuria to hospitalist team and made need nephrology consult. ?Check MRI brain, MR angiogram head/neck, MRV. ?Seizure precautions discussed in detail with the patient ?Patient counseled not to drive. Per patient she does not have any license to drive. ?GI/DVT prophylaxis ?Fall precautions ?Further medical management per hospitalist team -Follow up with Neurology as outpatient in 4-6 weeks. ?Please call with questions if any -Thank you for allowing us to participate in patient's care and management Code Visit Inpatient E&M: [id number] Init Hosp L3
--- NOTE | 2018-11-05 19:50 | NURSING ---
THIS RN ACCOMPANIED PT TO [facility]UR[facility]. PT ON STEP DOWN MONITOR AND IN WHEELCHAIR. S.O. ACCOMPANIED.
[2018-11-06 02:59] VITALS: PULSE 88
[2018-11-06 04:45] VITALS: BP 128/66; PULSE 82; RESP 18; TEMP 36.8; O2SAT 96
[2018-11-06 07:58] VITALS: PULSE 76
--- NOTE | 2018-11-06 09:27 | PN.OBGYN_ITS ---
Patient Problems: Active and Suspected Problems (Last Updated 11/04/18 @ 17:26 by Nga Mijares MD) Breakthrough seizure (Acute) Subjective: PT SEEN AT BEDSIDE, DOING WELL. PT REPORTS GOOD PAIN CONTROL. LOCHIA MILD. PT FEELING WELL TODAY. VOIDING W/O DIFFICULTY. - Physical Exam General: Alert, Oriented x3 Abdomen: Soft, Non Tender, - - FUNDUS FIRM Extremities: No Calf Tenderness Vital Signs Temp Pulse Resp BP Pulse Ox 98.2 F 76 18 128/66 H 96 11/06/18 04:45 11/06/18 07:58 11/06/18 04:45 11/06/18 04:45 11/06/18 04:45 Oxygen Delivery Method Room Air Weight: 107.7 kg Body Mass Index (BMI) 35.0 Intake and Output for Last 24 Hours 11/04/18 11/05/18 11/06/18 23:59 23:59 23:59 Intake Total 1993 / 1993 Output Total 100 / 100 900 / 900 Balance -100 / -100 1094 / 1094 2024 Laboratory Tests Past 24 Hrs 11/05/18 11/05/18 11/05/18 10:10 11:00 14:25 Sodium 141 Potassium 4.0 Chloride 112 H Carbon Dioxide 22.0 Anion Gap 7 BUN 5 L Creatinine 0.59 Estim Creat Clear Calc 148.36 Est GFR (MDRD) Af Amer 157 Est GFR (MDRD) Non-Af 130 BUN/Creatinine Ratio 8.5 L Glucose 81 Calcium 8.6 Total Bilirubin 0.10 L AST 20 ALT 17 Alkaline Phosphatase 118 H Total Protein 6.1 L Albumin 2.4 L Globulin 3.7 Albumin/Globulin Ratio 0.6 L Urine Color Yellow Red Urine Clarity Clear Sl. Cloudy Urine pH 6.5 7.0 Ur Specific [place] 1.020 1.005 Urine Protein 30 H 100 H Urine Glucose (UA) Normal Normal Urine Ketones 5 H Negative Urine Occult Blood 250 H 250 H Urine Nitrite Negative Positive H Urine Bilirubin Negative Negative Urine Urobilinogen Normal Normal Ur Leukocyte Esterase 25 H 500 H Urine RBC 50-100 SEEN > 100 SEEN Urine WBC 0-5 SEEN 25-50 SEEN Ur Squamous Epith Cells 0-5 SEEN 10-25 SEEN Urine Bacteria RARE 0 SEEN Urine Mucus 0 SEEN 0 SEEN U Random Total Protein Urine Creatinine Protein/Creatinin Ratio 11/05/18 14:25 Sodium Potassium Chloride Carbon Dioxide Anion Gap BUN Creatinine Estim Creat Clear Calc Est GFR (MDRD) Af Amer Est GFR (MDRD) Non-Af BUN/Creatinine Ratio Glucose Calcium Total Bilirubin AST ALT Alkaline Phosphatase Total Protein Albumin Globulin Albumin/Globulin Ratio Urine Color Urine Clarity Urine pH Ur Specific [place] Urine Protein Urine Glucose (UA) Urine Ketones Urine Occult Blood Urine Nitrite Urine Bilirubin Urine Urobilinogen Ur Leukocyte Esterase Urine RBC Urine WBC Ur Squamous Epith Cells Urine Bacteria Urine Mucus U Random Total Protein 47.6 H Urine Creatinine 26.60 Protein/Creatinin Ratio 1789 H Medical Necessity - Tobacco Use Smoking Status: Light Smoker (<10/day) Tobacco Use: Cigarettes Assessment/Plan All Active Problems (Last Updated 11/04/18 @ 17:26 by Nga Soares MD) Dichorionic diamniotic twin in second trimester (Acute) Epilepsy affecting in second trimester (Acute) IUGR (intrauterine growth restriction) affecting care of mother (Acute) Seizure disorder (Acute) (Acute) Status post seizure (Acute) Dichorionic diamniotic twin in third trimester (Acute) Breakthrough seizure (Acute) PPD#2, S/P SEIZURE POST 1) DOING WELL- HAD MRI HEAD YESTERDAY- NORMAL 2) PROTEINURIA- PP - LIKELY DUE TO BLOOD- NO CONCERNS FOR PRE E- WILL RECHECK PP AND IF ELEVATED CONSIDER NEPHROLOGY 3) WILL BE CHANGED TO PO KEPPRA TODAY- ONCE SHE IS ON THAT MAY RETURN TO [facility] FOR ROUTINE PP CARE 4) WILL NEED F/U WITH NEUROLOGIST IN 4-6 WEEKS 5) IMPORTANCE OF MEDICATION COMPLIANCE REVIEWED WITH PATIENT 6) SPOKE WITH CHARGE NURSE OF [facility]- PLAN FOR TRANSFER WHEN ON PO MEDS 7) ROUTINE PP CARE
[2018-11-06 10:27] VITALS: BP 121/64; PULSE 76; RESP 16; TEMP 36.7; O2SAT 97
--- NOTE | 2018-11-06 10:40 | CASEMGMT ---
Social Work Assessment Labor and Delivery Unit Date of Referral: 11/11/2018 Time of Referral: 03:21 Referred By: Chandni Li RN; Dr. Soares Date of Intervention: 11/06/2018 Time of Intervention: 09:53 Reason for Referral: Hx of depression History obtained from: MOB and medical record. MOB is alone in room on PCU at time of assessment. Presents with pleasant affect as evidenced by smiling and willingness to participate in assessment. MOB is engages in conversation and answers inquiries appropriately. Household composition: Reports to live with significant other, Bradley oLpez (KATRIN 2.5 years), and his father and step-mother. Their 17 month old daughter, Elsa, also resides in the home with them. Medical History: LORENZA was transferred to Progressive Care Unit following a seizure on 11/05/18. Will be transferring back to this date, 11/06/18. MOB is established with Dr. Valdez, neurologist, for her seizure DO. Both infants are in SCN. Baby A had apgars of 8 and 9, and Baby B had apgars of 7 and 8. Baby B also has IUGR. Financial Status: Bradley BECK, works FT at [employer]. They also have the support of his parents. MOB does not presently work and will be primary caregiver of infants. Reports to receive food stamps and Medicaid through [facility]. Denies financial concerns. Infant Supplies: MOB reports to have all necessary supplies including cribs, clothing, diapers, bottles, and car seats. Educate that she and KIRAN will need to bring in car seats prior to discharge. Understanding expressed. Childcare/Caregiver(s): MOB will be primary caregiver to infants. States that EVE EvangelistaB step-mom, is willing and able to assist. Transportation: LORENZA and FOB do not drive. Report that they sometimes get help from Bradley?s parents and also have a friend that lives locally that helps them with transportation as needed. Programs/Agencies Involved: Reports establishment with [place] and [facility]. Educate to [facility] and pt declines referral at this time. Children Services/Legal Issues: Per MOB no current CSB case open. She does have a 5 and 6 y/o that she does not have custody of, as they were removed from her care and one has been adopted, and the other the ?state took.? Inquire what circumstances the child was taken under, and MOB reports that she was incarcerated for prescription forgery. Behavioral Health Issues: Mental Health History: Pt reports hx of depression. In her chart is also listed Bipolar, but pt denies. Presently she is not on medication and does not see a counselor. Educate to resources and pt declines. Reports that when she is experiencing symptoms of depression she usually listens to music or draws as coping skills to reduce the severity of the symptoms. Denies SI or HI, hallucinations or delusions. Substance Use History: Reports use of alcohol and tobacco. Claims last alcohol use was approximately 1.5 years ago, and she presently smokes approximately 4-6 cigarettes/day. Reports abuse of narcotics 4-5 years ago, but reports that she has been ?clean? since. Nothing in her medical record to indicate otherwise. Maternal and Infant Drug Screens: None obtained. Family/Social Stressors: Denies any at this time. Denies concerns of abuse/neglect within the home. Discuss FOBs past hx of domestic violence charges that were brought up at the delivery of her last child and MOB denies that there have been any instances that were of concern since then. MOB reports to have adequate supports. Support Systems: KIRAN, Bradely Lopez, and Bradley?s Step-Mom, Tonja, are identified as the MOB?s primary supports. Per nursing staff several family members were here yesterday and were supportive. Depression and Anxiety/Shaken Baby/Safe Sleeping: Education provided and understanding expressed. Educated to community resources and pt accepts information. Made aware this property underwriter would be checking with her and infants over the course of their hospitalization. ASSESSMENT: See above. PLAN: Continue to observe. MOB to return to unit and this property underwriter will check tomorrow with MOB and nursing to gauge interactions between MOB and infants. SW to continue to follow and assist.
--- NOTE | 2018-11-06 11:16 | NURSING ---
verbal report given to OLMAN huynh in OB
[2018-11-06 11:41] VITALS: BP 121/61; PULSE 86; RESP 18; TEMP 37.1; O2SAT 97
--- NOTE | 2018-11-06 12:42 | PCM.PN.HOSP ---
Patient Problems: Active and Suspected Problems (Last Updated 11/04/18 @ 17:26 by Nga Soares MD) Breakthrough seizure (Acute) Subjective: Patient seen and examined. She tolerated Keppra well. She did not have any seizures overnight. She had no complaints this morning. Labs and vitals reviewed. Vitals/I&O's: Vital Signs Temp Pulse Resp BP Pulse Ox 98.8 F 86 18 121/61 H 97 11/06/18 11:41 11/06/18 11:41 11/06/18 11:41 11/06/18 11:41 11/06/18 11:41 Oxygen Delivery Method Room Air Weight: 237 lb 7.005 oz Body Mass Index (BMI) 35.0 Intake and Output for Last 24 Hours 11/04/18 11/05/18 11/06/18 23:59 23:59 23:59 Intake Total 1993 / 1993 Output Total 100 / 100 900 / 900 Balance -100 / -100 1094 / 1094 2024 General: Alert, Oriented x3, Cooperative, No apparent distress HEENT: Atraumatic, PERRLA, EOMI, Normocephalic Oral: Moist Mucosa Neck: Supple, No JVD, Negative Carotid Bruits Lungs: Clear to auscultation, Normal air movement, No rhonchi, No wheeze, No rales Cardiovascular: Regular rate, Regular Rhythm, Normal S1, Normal S2, No murmurs Abdomen: Bowel Sounds Present, Soft, Non Tender, Non-Distended, No Hepato-splenomegaly Extremities: No clubbing, No cyanosis, No edema, Capillary Refill Less than 3 Seconds Skin: No rashes, No breakdown Musculoskeletal: No Tenderness to Palpation of Joints or Extremities Lymphatic: No Cervical, Supraclavicular, or Inguinal Adenopathy Neurological: Cranial nerves II-XII grossly intact, Neuro grossly intact, Motor Exam 5/5 strength throughout Psych/Mental Status: Normal Affect, Appropriate, Alert and oriented to time, place, person, mood and affect Laboratory Results 11/05/18 14:25: Urine Color Red, Urine Clarity Sl. Cloudy, Urine pH 7.0, Ur Specific [place] 1.005, Urine Protein 100 H, Urine Glucose (UA) Normal, Urine Ketones Negative, Urine Occult Blood 250 H, Urine Nitrite Positive H, Urine Bilirubin Negative, Urine Urobilinogen Normal, Ur Leukocyte Esterase 500 H, Urine RBC > 100 SEEN, Urine WBC 25-50 SEEN, Ur Squamous Epith Cells 10-25 SEEN, Urine Bacteria 0 SEEN, Urine Mucus 0 SEEN 11/05/18 14:25: U Random Total Protein 47.6 H, Urine Creatinine 26.60, Protein/Creatinin Ratio 1789 H Current Medications Acetaminophen (Tylenol) 1,000 mg PO Q8H PRN PRN PRN Reason: MILD PAIN (1-310) Bisacodyl (Dulcolax) 10 mg RECTAL UD PRN PRN Reason: If no BM Dibucaine (Dibucaine) 1 applic TOPICAL TID PRN PRN; Protocol PRN Reason: Discomfort Hydrocortisone (Hytone) 1 applic TOPICAL TID PRN PRN; Protocol PRN Reason: Discomfort Lactated Ringer's () 1,000 mls @ 0 mls/hr IV .Q0M WILLARD Ibuprofen (Motrin) 600 mg PO Q6H PRN PRN PRN Reason: MILD PAIN (1-310) Levetiracetam (Keppra Tablet) 750 mg PO BID WILLARD Methylergonovine Maleate (Methergine) 0.2 mg IM X1 PRN PRN Reason: Excess bleeding/uterine atony Ondansetron HCl (Zofran) 4 mg IV Q4H PRN PRN PRN Reason: Nausea Oxycodone HCl (Oxyir) 5 - 10 mg PO Q4H PRN PRN PRN Reason: MOD-SEVERE PAIN (-10) Senna/Docusate Sodium (Senokot-S, Leidy-Colace) 1 - 2 tablet PO DAILY PRN PRN PRN Reason: Constipation Simethicone (Mylicon) 80 mg PO PCHS PRN PRN Reason: Indigestion/Stomach pain Sodium Chloride () 5 - 15 ml IV UD PRN PRN Reason: SALINE FLUSH Medical Necessity - Tobacco Use Smoking Status: Light Smoker (<10/day) Tobacco Use: Cigarettes Assessment/Plan All Active Problems (Last Updated 11/04/18 @ 17:26 by Nga Soares MD) Dichorionic diamniotic twin in second trimester (Acute) Epilepsy affecting in second trimester (Acute) IUGR (intrauterine growth restriction) affecting care of mother (Acute) Seizure disorder (Acute) (Acute) Status post seizure (Acute) Dichorionic diamniotic twin in third trimester (Acute) Breakthrough seizure (Acute) 28-year-old female who delivered twins on 11/04/2018 and subsequently had a seizure on the morning of 11/05/2018. Has a known history of seizure disorder and is noncompliant with the medication. 1. Breakthrough seizures in a patient with known seizure disorder due to noncompliance didnt have any seizures overnight MRI, MRV and MRA of head and neck were all unremarkable and were normal urine protein creatinine ratio was markedly elevated at 1789. Discussed with neurology and LIAISON PLANNER. LIAISON PLANNER did not want starting tamoxifen as patient did not have any other indication of preeclampsia. Will switch patient to p.o. Keppra 750 mg twice daily today. Patient counseled strongly about need for compliance and follow-up with neurology. Patient states babies are being bottle-fed. She was counseled about risk of Keppra decreasing milk production. Patient was also counseled strongly by neurology about limited data that has so far not shown any risk of harm with Keppra 2. Depression: not on any meds. 3. Para 2: recently delivered twins on 11/04/18. management as per obstetrics team DVT prophylaxis: SCDs Disposition: transfer patient back to [facility]. Code Visit Inpatient E&M: 52786 Subs Hosp L2
--- NOTE | 2018-11-06 12:51 | PN_ITS ---
Patient Problems: Active and Suspected Problems (Last Updated 11/04/18 @ 17:26 by Nga Mijares MD) Breakthrough seizure (Acute) Subjective: Patient seen and examined. She tolerated Keppra well. She did not have any seizures overnight. She had no complaints this morning. Labs and vitals reviewed. Vitals/I&O's: Vital Signs Temp Pulse Resp BP Pulse Ox 98.8 F 86 18 121/61 H 97 11/06/18 11:41 11/06/18 11:41 11/06/18 11:41 11/06/18 11:41 11/06/18 11:41 Oxygen Delivery Method Room Air Weight: 237 lb 7.005 oz Body Mass Index (BMI) 35.0 Intake and Output for Last 24 Hours 11/04/18 11/05/18 11/06/18 23:59 23:59 23:59 Intake Total 1993 / 1993 Output Total 100 / 100 900 / 900 Balance -100 / -100 1094 / 1094 2024 General: Alert, Oriented x3, Cooperative, No apparent distress HEENT: Atraumatic, PERRLA, EOMI, Normocephalic Oral: Moist Mucosa Neck: Supple, No JVD, Negative Carotid Bruits Lungs: Clear to auscultation, Normal air movement, No rhonchi, No wheeze, No rales Cardiovascular: Regular rate, Regular Rhythm, Normal S1, Normal S2, No murmurs Abdomen: Bowel Sounds Present, Soft, Non Tender, Non-Distended, No Hepato- splenomegaly Extremities: No clubbing, No cyanosis, No edema, Capillary Refill Less than 3 Seconds Skin: No rashes, No breakdown Musculoskeletal: No Tenderness to Palpation of Joints or Extremities Lymphatic: No Cervical, Supraclavicular, or Inguinal Adenopathy Neurological: Cranial nerves II-XII grossly intact, Neuro grossly intact, Motor Exam 5/5 strength throughout Psych/Mental Status: Normal Affect, Appropriate, Alert and oriented to time, place, person, mood and affect Laboratory Results 11/05/18 14:25: Urine Color Red, Urine Clarity Sl. Cloudy, Urine pH 7.0, Ur Sp ecific [place] 1.005, Urine Protein 100 H, Urine Glucose (UA) Normal, Urine Ketones Negative, Urine Occult Blood 250 H, Urine Nitrite Positive H, Urine Bilirubin Negative, Urine Urobilinogen Normal, Ur Leukocyte Esterase 500 H, Urine RBC > 100 SEEN, Urine WBC 25-50 SEEN, Ur Squamous Epith Cells 10-25 SEEN, Urine Bacteria 0 SEEN, Urine Mucus 0 SEEN 11/05/18 14:25: U Random Total Protein 47.6 H, Urine Creatinine 26.60, Protein/Creatinin Ratio 1789 H Current Medications Acetaminophen (Tylenol) 1,000 mg PO Q8H PRN PRN PRN Reason: MILD PAIN (1-3/10) Bisacodyl (Dulcolax) 10 mg RECTAL UD PRN PRN Reason: If no BM Dibucaine (Dibucaine) 1 applic TOPICAL TID PRN PRN; Protocol PRN Reason: Discomfort Hydrocortisone (Hytone) 1 applic TOPICAL TID PRN PRN; Protocol PRN Reason: Discomfort Lactated Ringer's () 1,000 mls @ 0 mls/hr IV .Q0M WILLADR Ibuprofen (Motrin) 600 mg PO Q6H PRN PRN PRN Reason: MILD PAIN (1-310) Levetiracetam (Keppra Tablet) 750 mg PO BID WILLARD Methylergonovine Maleate (Methergine) 0.2 mg IM X1 PRN PRN Reason: Excess bleeding/uterine atony Ondansetron HCl (Zofran) 4 mg IV Q4H PRN PRN PRN Reason: Nausea Oxycodone HCl (Oxyir) 5 - 10 mg PO Q4H PRN PRN PRN Reason: MOD-SEVERE PAIN (-1010) Senna/Docusate Sodium (Senokot-S, Leidy-Colace) 1 - 2 tablet PO DAILY PRN PRN PRN Reason: Constipation Simethicone (Mylicon) 80 mg PO PCHS PRN PRN Reason: Indigestion/Stomach pain Sodium Chloride () 5 - 15 ml IV UD PRN PRN Reason: SALINE FLUSH Medical Necessity - Tobacco Use Smoking Status: Light Smoker (<10/day) Tobacco Use: Cigarettes Assessment/Plan All Active Problems (Last Updated 11/04/18 @ 17:26 by Nga Soares MD) Dichorionic diamniotic twin in second trimester (Acute) Epilepsy affecting in second trimester (Acute) IUGR (intrauterine growth restriction) affecting care of mother (Acute) Seizure disorder (Acute) (Acute) Status post seizure (Acute) Dichorionic diamniotic twin in third trimester (Acute) Breakthrough seizure (Acute) 28-year-old female who delivered twins on 11/04/2018 and subsequently had a seizure on the morning of 11/05/2018. Has a known history of seizure disorder and is noncompliant with the medication. 1. Breakthrough seizures in a patient with known seizure disorder due to noncompliance * didnt have any seizures overnight * MRI, MRV and MRA of head and neck were all unremarkable and were normal * urine protein creatinine ratio was markedly elevated at 1789. Discussed with neurology and SYSTEM MANAGER. SYSTEM MANAGER did not want starting tamoxifen as patient did not have any other indication of preeclampsia. * Will switch patient to p.o. Keppra 750 mg twice daily today. Patient counseled strongly about need for compliance and follow-up with neurology. * Patient states babies are being bottle-fed. She was counseled about risk of Keppra decreasing milk production. Patient was also counseled strongly by neurology about limited data that has so far not shown any risk of harm with Keppra * 2. Depression: not on any meds. 3. Para 2: recently delivered twins on 11/04/18. management as per obstetrics team DVT prophylaxis: SCDs Disposition: transfer patient back to [facility]. Code Visit Inpatient E&M: 87598 Subs Hosp L2
[2018-11-06 20:38] VITALS: BP 115/70; PULSE 101; RESP 18; TEMP 36.4; O2SAT 97
[2018-11-06] MEDS: Acetaminophen 500 MG Tablet 1000 MG PO (20:45)
--- NOTE | 2018-11-06 20:51 | PCM.DCVAG ---
Discharge Diet: No Restrictions Discharge Activity: Return to Normal Activity, May not drive while taking narcotic pain medications., May Shower May resume sexual activity in: 4-6 weeks Additional Activity Instructions:: Nothing in the vagina for 4-6 weeks. You may return to work/school in 6 weeks. Call your doctor if your incision/area has: Continuous Slow Oozing, Sudden Increased Bleeding, Increased Pain/ Swelling, Increased Redness, Foul Smelling Discharge Additional Instructions: If you experience any of the following, contact your healthcare provider. Bleeding that soaks a pad every hour for 2 hours Fever 100.4 or higher Unrelieved incision or abdominal pain Swelling, redness, discharge or bleeding from your incision or episiotomy site Your incision begins to separate Problems urinating (including inability to urinate or burning while urinating). Visual changes Severe headache Flu-like symptoms Pain or redness in one of both of your breasts Pain, warmth, tenderness or swelling in your legs, especially the calf area Frequent nausea and vomiting Symptoms of depression or anxiety If you experience any of the following, call 911 or go to the nearest Emergency Room. Chest pain Problems breathing Seizure activity Partial or complete paralysis of a body part, slurred speech, weakness or drooping of the face, or a sudden inability to walk or hold your balance Allergies/Adverse Reactions: Allergies No Known Allergies Allergy (Verified 10/25/18 14:33) Medications to take at Discharge Acetaminophen [Tylenol] 500 mg PO Q6H PRN PRN 09/30/18 Vits [Prenatabs FA ] 1 tablet PO DAILY 10/12/18 Omeprazole [Prilosec] 20 mg PO DAILY 10/25/18 Ibuprofen [Motrin] 600 mg PO Q6H PRN PRN #30 tablet 11/05/18 levETIRAcetam tablet [Keppra tablet] 750 mg PO BID #60 tablet 11/06/18 The following prescriptions were given: Ibuprofen [Motrin] 600 mg PO Q6H PRN PRN #30 tablet PRN Reason: Mild Pain (-10/02) levETIRAcetam tablet [Keppra tablet] 750 mg PO BID #60 tablet Please Follow Up With: Declan Duckworth MD When: 4 weeks Please Follow Up With: Nga Soares MD When: 1-2 weeks then 6 weeks Primary Care Physician: Care Physician,No Primary [Primary Care Provider] - Test Results: Test results from this visit will be discussed in further detail at your follow-up appointment, if applicable.
--- NOTE | 2018-11-06 20:54 | DCINST_ITS ---
Discharge Diet: No Restrictions Discharge Activity: Return to Normal Activity, May not drive while taking narcotic pain medications., May Shower May resume sexual activity in: 4-6 weeks Additional Activity Instructions:: Nothing in the vagina for 4-6 weeks. You may return to work/school in 6 weeks. Call your doctor if your incision/area has: Continuous Slow Oozing, Sudden Increased Bleeding, Increased Pain/ Swelling, Increased Redness, Foul Smelling Discharge Additional Instructions: If you experience any of the following, contact your healthcare provider. * Bleeding that soaks a pad every hour for 2 hours * Fever 100.4 or higher * Unrelieved incision or abdominal pain * Swelling, redness, discharge or bleeding from your incision or episiotomy site * Your incision begins to separate * Problems urinating (including inability to urinate or burning while urinating). * Visual changes * Severe headache * Flu-like symptoms * Pain or redness in one of both of your breasts * Pain, warmth, tenderness or swelling in your legs, especially the calf area * Frequent nausea and vomiting * Symptoms of depression or anxiety If you experience any of the following, call 911 or go to the nearest Emergency Room. * Chest pain * Problems breathing * Seizure activity * Partial or complete paralysis of a body part, slurred speech, weakness or drooping of the face, or a sudden inability to walk or hold your balance Allergies/Adverse Reactions: Allergies No Known Allergies Allergy (Verified 10/25/18 14:33) Medications to take at Discharge Acetaminophen [Tylenol] 500 mg PO Q6H PRN PRN 09/30/18 Vits [Prenatabs FA ] 1 tablet PO DAILY 10/12/18 Omeprazole [Prilosec] 20 mg PO DAILY 10/25/18 Ibuprofen [Motrin] 600 mg PO Q6H PRN PRN #30 tablet 11/05/18 levETIRAcetam tablet [Keppra tablet] 750 mg PO BID #60 tablet 11/06/18 The following prescriptions were given: Ibuprofen [Motrin] 600 mg PO Q6H PRN PRN #30 tablet PRN Reason: Mild Pain (-10/02) levETIRAcetam tablet [Keppra tablet] 750 mg PO BID #60 tablet Please Follow Up With: Declan Duckworth MD When: 4 weeks Please Follow Up With: Nga Soares MD When: 1-2 weeks then 6 weeks Primary Care Physician: Care Physician,No Primary [Primary Care Provider] - Test Results: Test results from this visit will be discussed in further detail at your follow- up appointment, if applicable.
[2018-11-06] MEDS: levETIRAcetam 750 MG Tablet PO (22:05)
[2018-11-06] MEDS: Ibuprofen 600 MG Tablet PO (23:16)
[2018-11-07 02:57] VITALS: BP 104/51; PULSE 74; RESP 17; TEMP 36.7; O2SAT 97
--- NOTE | 2018-11-07 05:10 | NURSING ---
[facility] nurses reported to this RN that the patient only went to/participated in the 2100 feeding. She skipped and slept through the 0000 and 0300 feeds. Pt. has not mentioned much about infants, and only replied they doing fine when this RN tried to ask or talk about the infants.
[2018-11-07] MEDS: Ibuprofen 600 MG Tablet PO ×2 (07:01→12:57)
[2018-11-07 08:16] VITALS: BP 118/75; PULSE 76; RESP 16; TEMP 36.3; O2SAT 99
--- NOTE | 2018-11-07 08:35 | PCM.PN.OB ---
Patient Problems: Active and Suspected Problems (Last Updated 11/04/18 @ 17:26 by Nga Soares MD) Breakthrough seizure (Acute) Subjective: Doing well per patient and nursing staff. Ambulating and taking PO without difficulty. No further seizures at this time. Denies headache, visual changes, chest pain, SOB, increased vaginal bleeding or clots. Planning D/C to hotel status today as twins are in special care nursery. - Physical Exam General: Alert, Oriented x3 HEENT: Atraumatic, PERRLA, Normocephalic Neck: Trachea Midline Lungs: Clear to auscultation, Normal air movement, No rhonchi, No wheeze Cardiovascular: Regular rate, Regular Rhythm, No murmurs Abdomen: Bowel Sounds Present, Soft, Non Tender, - - Fundus firm 2 below U Extremities: No edema Neurological: Deep Tendon Reflexes 2+/4 and Symmetrical Psych/Mental Status: Normal Affect, Appropriate Vital Signs Temp Pulse Resp BP Pulse Ox 98.0 F 74 17 104/51 L 97 11/07/18 02:57 11/07/18 02:57 11/07/18 02:57 11/07/18 02:57 11/07/18 02:57 Oxygen Delivery Method Room Air Weight: 237 lb 7.005 oz Body Mass Index (BMI) 35.0 Intake and Output for Last 24 Hours 11/05/18 11/06/18 11/07/18 23:59 23:59 23:59 Intake Total 1993 / 1993 Output Total 900 / 900 Balance 1094 / 1094 2024 Medical Necessity - Tobacco Use Smoking Status: Light Smoker (<10/day) Tobacco Use: Cigarettes Assessment/Plan All Active Problems (Last Updated 11/04/18 @ 17:26 by Nga Soares MD) Dichorionic diamniotic twin in second trimester (Acute) Epilepsy affecting in second trimester (Acute) IUGR (intrauterine growth restriction) affecting care of mother (Acute) Seizure disorder (Acute) (Acute) Status post seizure (Acute) Dichorionic diamniotic twin in third trimester (Acute) Breakthrough seizure (Acute) P: 1) Discharge to hotel status today. 2) Reviewed routine discharge instructions. 3) Neurology appointment on 12/30/18 at 11:40 with [facility] 4) Continue Keppra as prescribed, prescription at pharmacy 5) Follow up with [employer] in 2 weeks and 6 weeks.
[2018-11-07] MEDS: levETIRAcetam 750 MG Tablet PO (10:32)
[2018-11-07 13:00] VITALS: BP 116/62; PULSE 88; RESP 18; TEMP 36.9; O2SAT 99
--- NOTE | 2018-11-07 13:15 | NURSING ---
Discharge instructions given to mom . Mom to transition to [facility] room status. Information sheet/contract read to and explained to mom . Mom signed agreement. FOB not available at time of discharge but will sign when comes back to hospital . Signing in and out of SCN explained to mom by this nurse and SCN nurse. Explained the importance of signing in and out at first front ventilator when leaving hospital
--- NOTE | 2018-11-07 14:21 | CASEMGMT ---
Social Work Note Discussed with RN in [facility] who reports that MOB has been to all of the feedings today, completing tasks well, and engaging/bonding with infants as evidenced by smiling and commenting on their interactions with her. Concern presented by nursing as FOB reportedly bought yogurt for infants as someone has allegedly told him that this would help them grow. Placed call to [facility] and spoke with Mee. Gave brief history of involvement with [facility] and current concerns. At this time there is not enough information to open the case. Infants will remain at [facility] for approximately 5 days, SW to continue to follow and assist. Meg Terrell, CLEAN UP HELPER BANQUET, SUZANNA
== END 2018-11-07 13:00 | disposition home or self-care (01) | DRG 560 ==
LOC: WP 11-05 09:16 → PCU 11-05 11:23 → WP 11-06 11:26
PROVIDERS: Student in an Organized Health Care Education/Training Program; Admitting Provider Obstetrics & Gynecology; Referring Provider Obstetrics & Gynecology; Visit Provider Obstetrics & Gynecology
DX: O60.14X1 Preterm labor third trimester with preterm delivery third trimester, fetus 1 (principal); O60.14X2 Preterm labor third trimester with preterm delivery third trimester, fetus 2; O36.5931 Maternal care for other known or suspected poor fetal growth, third trimester, fetus 1; O30.043 Twin pregnancy, dichorionic/diamniotic, third trimester; O69.1XX1 Labor and delivery complicated by cord around neck, with compression, fetus 1; O69.1XX2 Labor and delivery complicated by cord around neck, with compression, fetus 2; O99.62 Diseases of the digestive system complicating childbirth; K21.9 Gastro-esophageal reflux disease without esophagitis; O99.354 Diseases of the nervous system complicating childbirth; O99.355 Diseases of the nervous system complicating the puerperium; G40.909 Epilepsy, unspecified, not intractable, without status epilepticus; O12.15 Gestational proteinuria, complicating the puerperium; O99.334 Smoking (tobacco) complicating childbirth; F17.210 Nicotine dependence, cigarettes, uncomplicated; Z3A.35 35 weeks gestation of pregnancy; Z37.2 Twins, both liveborn; Z91.14 Patient's other noncompliance with medication regimen
CPT/HCPCS: 59025; 59050; 70544; 70547; 70551; 80053; 81001; 82570; 84156; 85025; 86850; 86900; 88307; 99218; J7040; J7120; G0378

== ENCOUNTER → 2018-11-04 15:27 | Outpatient (CLI) | payer MEDICAID, SELFPAY ==
[2018-11-04 14:45] VITALS: BMI 35.0
[2018-11-04 17:40] LABS: Group B Strep DNA By PCR Negative (Negative); Internal Control PASS; Probe Check PASS; Specimen Processing Control PASS
== END ==
PROVIDERS: Referring Provider Obstetrics & Gynecology; Visit Provider Obstetrics & Gynecology
DX: O36.5931 Maternal care for other known or suspected poor fetal growth, third trimester, fetus 1 (principal); Z3A.35 35 weeks gestation of pregnancy
CPT/HCPCS: 87081; 87653

== ENCOUNTER 2018-11-16 21:54 | Emergency (ER) | payer MEDICAID, SELFPAY ==
[2018-11-16 21:54] VITALS: BP 120/80; PULSE 111; RESP 16; TEMP 36.3; O2SAT 95; BMI 32.3
--- NOTE | 2018-11-16 22:53 | ED.VISSUMM ---
- ER Visit Summary Date of Service: 11/16/18 Chief Complaint: [] History of Present Illness: The patient is a 28 F [] Physical Examination: [] Test Results: [] Emergency Department Course and Treatment: [] Treatment Plan: [] Disposition: [] Impression: [] This note was generated with [employer] dictation software. It may contain incorrect words, spelling, and punctuation that were not noted in review of the chart prior to signing ED Disposition - Plan for ED Patient: Referrals: Care Physician,No Primary [Primary Care Provider] -
--- NOTE | 2018-11-16 23:02 | ED.VISSUMM ---
- ER Visit Summary Date of Service: 11/16/18 Chief Complaint: [Abscess to right leg] History of Present Illness: The patient is a 28 F [presents the emergency department with complaint of a soft tissue swelling to the right upper thigh posteriorly that she thinks started about 10 days ago. Area only became painful yesterday. She denies any fevers. Patient has history of epilepsy otherwise no medical history. Patient recently delivered twins on the of the month. ] Physical Examination: [HEENT-PERRLA, EOMI. Cranial nerves II through XII grossly intact. TMs clear. Mucous membranes moist. No adenopathy. Cardiovascular-regular rate and rhythm without murmur or ectopy Lungs-clear to auscultation, chest wall stable without crepitus or subcu emphysema Abdomen-normoactive bowel sounds, soft, nontender, no rebound or rigidity, no peritoneal signs. Extremities-intact ?4, normal range of motion, normal pulses, atraumatic. Right leg-patient has a 4 cm soft tissue swelling to the posterior right thigh just below the gluteal fold. Area slightly fluctuant. Mild erythema. Tender to palpation.] Test Results: [None indicated] Emergency Department Course and Treatment: [Area sterilely draped and prepped. Suspected abscess anesthetized locally with 1% lidocaine total 2 cc. Using an 11 blade a 2 cm incision was made and large amount of free-flowing purulent debris was expressed. Using curved hemostats I was able to undermine the soft tissues. Cavity was irrigated with saline. Clean dressing was applied.] Treatment Plan: [Patient will be treated with Keflex for 7 days. Patient advised to follow-up with primary care physician accounts payable professional for no doc within the next 3 to 5 days for wound check. Patient advised to return if increasing pain, swelling, fever, or condition should worsen anyway.] Disposition: [Discharged to home in stable condition] Impression: [Soft tissue abscess right thigh with incision and drainage] This note was generated with [employer] dictation software. It may contain incorrect words, spelling, and punctuation that were not noted in review of the chart prior to signing ED Disposition - Plan for ED Patient: Referrals: Care Physician,No Primary [Primary Care Provider] -
--- NOTE | 2018-11-16 23:06 | ED.DCSUM_ITS ---
- ER Visit Summary Date of Service: 11/16/18 Chief Complaint: [Abscess to right leg] History of Present Illness: The patient is a 28 F [presents the emergency department with complaint of a soft tissue swelling to the right upper thigh posteriorly that she thinks started about 10 days ago. Area only became painful yesterday. She denies any fevers. Patient has history of epilepsy otherwise no medical history. Patient recently delivered twins on the of the month. ] Physical Examination: [HEENT-PERRLA, EOMI. Cranial nerves II through XII grossly intact. TMs clear. Mucous membranes moist. No adenopathy. Cardiovascular-regular rate and rhythm without murmur or ectopy Lungs-clear to auscultation, chest wall stable without crepitus or subcu emphysema Abdomen-normoactive bowel sounds, soft, nontender, no rebound or rigidity, no peritoneal signs. Extremities-intact ?4, normal range of motion, normal pulses, atraumatic. Right leg-patient has a 4 cm soft tissue swelling to the posterior right thigh just below the gluteal fold. Area slightly fluctuant. Mild erythema. Tender to palpation.] Test Results: [None indicated] Emergency Department Course and Treatment: [Area sterilely draped and prepped. Suspected abscess anesthetized locally with 1% lidocaine total 2 cc. Using an 11 blade a 2 cm incision was made and large amount of free-flowing purulent debris was expressed. Using curved hemostats I was able to undermine the soft tissues. Cavity was irrigated with saline. Clean dressing was applied.] Treatment Plan: [Patient will be treated with Keflex for 7 days. Patient advised to follow-up with primary care physician injection moulding machine operator for no doc within the next 3 to 5 days for wound check. Patient advised to return if increasing pain, swelling, fever, or condition should worsen anyway.] Disposition: [Discharged to home in stable condition] Impression: [Soft tissue abscess right thigh with incision and drainage] This note was generated with SPAR[employer] dictation software. It may contain incorrect words, spelling, and punctuation that were not noted in review of the chart prior to signing ED Disposition - Plan for ED Patient: Referrals: Care Physician,No Primary [Primary Care Provider] -
--- NOTE | 2018-11-16 23:06 | ED.DEP ---
ED Disposition - Plan for ED Patient: Instructions: ED Abscess IandD Prescriptions: Cephalexin [Keflex] 500 mg PO Q6 #28 cap Referrals: Care Physician,No Primary [Primary Care Provider] - Dona Barrios MD [STAFF PHYSICIAN] - 3-5 Days
[2018-11-16] MEDS: Cephalexin 250 MG Capsule 500 MG PO (23:14)
--- NOTE | 2018-11-16 23:30 | ED.DCSUM_ITS ---
- ER Visit Summary Date of Service: 11/16/18 Chief Complaint: [] History of Present Illness: The patient is a 28 F [] Physical Examination: [] Test Results: [] Emergency Department Course and Treatment: [] Treatment Plan: [] Disposition: [] Impression: [] This note was generated with [employer] [address] dictation software. It may contain incorrect words, spelling, and punctuation that were not noted in review of the chart prior to signing ED Disposition - Plan for ED Patient: Referrals: Care Physician,No Primary [Primary Care Provider] -
== END 2018-11-16 23:16 | disposition home or self-care (01) ==
PROVIDERS: Emergency Provider Emergency Medicine
DX: L02.415 Cutaneous abscess of right lower limb (principal); G40.909 Epilepsy, unspecified, not intractable, without status epilepticus; Z72.0 Tobacco use
CPT/HCPCS: 10060; 99283

== ENCOUNTER 2018-12-03 13:49 | Emergency (ER) | payer MEDICAID, SELFPAY ==
[2018-12-03 13:50] VITALS: BP 120/76; PULSE 110; RESP 15; TEMP 36.8; O2SAT 98; BMI 31.7
--- NOTE | 2018-12-03 14:24 | RAD_ITS ---
STUDY: X-RAY CHEST REASON FOR EXAM: Female, 28 years old. Fever and cough x3 days TECHNIQUE: Frontal and lateral views of the chest. COMPARISON: None. FINDINGS: The lungs are clear and expanded. There is no demonstrated pleural abnormality. Normal size heart. Normal mediastinum and karma. Normal visualized pulmonary arteries. Normal visualized aortic arch and descending thoracic aorta. Normal visualized thoracic spine. Normal visualized ribs, clavicles, and shoulders. There is no demonstrated abnormality of the visualized soft tissue structures of the upper abdomen. RAD/Chest PA and Lateral IMPRESSION: Normal x-ray examination of the chest. Electronically Signed: Rivera Anderson MD at 16:32 EDT , Service support ,
--- NOTE | 2018-12-03 14:24 | ED.VIS.GEN ---
History of Present Illness Chief Complaint: Cough Informant: Patient Onset: Days - Onset of illness 3 days ago Context: Sudden Onset Timing: Continuous Quality: Nasal congestion, cough Location: Respiratory Current Severity: Mild Maximum Severity: Moderate Worsened by: Nothing Relieved by: Nothing Associated Symptoms: Subjective fever Narrative: Patient is a 28-year-old female with no past medical history presents with productive cough for the past 3 days with subjective fever. She does report nasal congestion and rhinorrhea. She states she smokes 1/2 to 1 pack/day. She also complains of bifrontal headache. She denies change in vision, photophobia, ear pain, neck pain or neck stiffness. She denies history of pneumonia. She is presently on no medication. Prior similar symptoms: No Recent Illness/Hospitalization: No - Past Medical History (1) Breakthrough seizure Status: Acute Past Medical History - Allergies and Home Meds Allergies/Adverse Reactions: Allergies No Known Allergies Allergy (Verified 12/03/18 13:49) Primary Care Physician: Care Physician,No Primary [Primary Care Provider] - Prior records reviewed: Yes - History of seizure Surgical History: noncontributory Lives: With Family Smoking Status: Current every day smoker Alcohol: None Review of Systems General: Reports: Fever, Subjective. Denies: Chills, Malaise, Sweats, Weight loss, - Eyes: Denies: Visual changes - bilaterally, Blurred Vision - bilaterally, Diplopia ENT: Denies: Rhinorrhea, Sore throat Cardiovascular: Denies: Chest pain, Palpitations Respiratory: Reports: Cough, Sputum. Denies: Dyspnea, Dyspnea on exertion, Orthopnea, Paroxysmal nocturnal dyspnea, -, - Gastrointestinal: Denies: Abdominal pain, Nausea, Vomiting, Diarrhea, Melena, Hematochezia Genitourinary: Denies: Dysuria, Hematuria, Frequency Musculoskeletal: Denies: Back pain, Extremity Pain Skin: Denies: Rash, Wounds Neurological: Denies: Headache, Weakness, Numbness Allergy: Denies: Uticaria, Swelling of the mouth Physical Exam Vital Signs/Narrative: Vital Signs Temp Pulse Resp BP Pulse Ox 12/03/18 13:50 98.2 F 110 H 15 120/76 98 Inital Vital Signs reviewed: Yes General: Well nourished, Well developed, No Acute Distress Head: Normocephalic, Atraumatic Eyes: Perrl, EOMI ENT: Moist mucous membranes, No rhinorrhea Neck: Supple, Nontender Cardiovascular: Regular rate, Regular rhythm, No murmurs Respiratory: No distress, CTA bilaterally, Chest nontender, Decreased Air Movement Abdomen: Soft, Nontender, Nondistended, Normal bowel sounds Back: Nontender, Normal Inspection Extremities: Nontender, No edema Skin: Normal color, No rash. Negative for: Cyanosis, Jaundice Neurological: Alert, Oriented x3, Cranial nerves II-XII grossly intact, Normal Strength, Normal Sensation, Normal Gait Psychological: Normal Mood, Depressed Diagnostic/Tx/Re-eval Chest X-Ray - ED: 2 View, Read by ED Physician, Normal, Heart, Lungs, Mediastinum, Bony Structures, No Acute Disease - Medical Decision Making With abnormal vital signs and productive cough will obtain chest x-ray to evaluate for pneumonia. If no evidence of pneumonia symptomatic treatment. If evidence of pneumonia will place on antibiotic. Chest x-ray is negative. Will treat for viral upper respiratory infection. Patient was informed and box not indicated. Since there is no wheezing she was not prescribed a metered-dose inhaler. ED Disposition - Plan for ED Patient: Disposition: Home or Assisted Living Diagnosis: Viral upper respiratory tract infection with cough Instructions: ED Upper Resp Infec No Abx Tx Referrals: Care Physician,No Primary [Primary Care Provider] - Additional Instructions: If you have no improvement in 1 week, you need to contact your primary care physician assigned by your insurance carrier, care source. Because you are a smoker you may have a cough for 4 weeks. You may get worse over the next 24 to 48 hours. You may be ill for an additional 10 to 14 days.
[2018-12-03 16:37] VITALS: BP 127/79; PULSE 95; RESP 17; O2SAT 100
== END 2018-12-03 16:38 | disposition home or self-care (01) ==
PROVIDERS: Emergency Provider Emergency Medicine
DX: J06.9 Acute upper respiratory infection, unspecified (principal); F17.200 Nicotine dependence, unspecified, uncomplicated
CPT/HCPCS: 71046; 99282

== ENCOUNTER 2019-02-13 09:00 | Outpatient (RCR) | payer MEDICAID, SELFPAY ==
--- NOTE | 2019-02-13 09:06 | BH.SGPN.GN ---
Behaviors/Verbalizations/Mental Status: [Eye contact is good. Motor activity is appropriate. Appearance is casual, disheveled. Speech is Appropriate. Mood is dysthymic. Affect is congruent. Thoughts are linear and logical. No evidence of psychosis. Reviewed daily check in sheet and no reports of suicidal ideations or intent.] Client Response/Progress/Benefit: [Pt was an active participant in group discussion. Emotion for today is exhausted and attributes this to addressing some of her past emotional traumas for the first time. Identified taking strides to work through her emotional trauma is a win despite being exhausting. Identified importance of self-care and taking things slowly. Additional win as continuing to apply positive self-talk when feeling low, as well as listening to upbeat music when feeling down. States that she continues to take small steps to improve self-confidence and practice self-care. Benefited from group support and encouragement. Progress in self-report of skill application via open communication and willing to begin processing impact of past on current coping means. Will continue in IOP to prevent decompensation, improve daily functioning, reduce depression.] Narrative Note: []
--- NOTE | 2019-02-13 10:17 | BH.SGPN.GN ---
Behaviors/Verbalizations/Mental Status: []Client alert and oriented, disheveled appearance. Eye contact good. Motor activity appropriate. Speech soft. Affect constricted, mood anxious. Thoughts linear, logical, no signs of hallucinations or delusions. Client Response/Progress/Benefit: []Client quiet and passive during discussion, but participating in the activity. Client nodding at comments about minimizing progress and having unrealistic expectations. Attentive as the group worked together to identify benefits to developing goals which included; keeps us motivated, keeps us moving forward, gives us purpose, and makes us feel better. Group also identified barriers to setting and accomplishing goals which included; fear of the unknown, unexpected stressors, feeling overwhelmed, unable to make decisions, procrastination, and unrealistic expectations of self. Attentive during education on developing SMART goals. Client participated in the group activity and attempted to help the group set higher goals. Was engaged and had a good affect during activity. Benefited from increase awareness of goal-setting methods. First day of IOP will continue to prevent decompensation and increase emotional regulation.
--- NOTE | 2019-02-13 11:25 | BH.SGPN.GN ---
Behaviors/Verbalizations/Mental Status: []]Eye contact is fair. Motor activity is appropriate. Appearance is casual. Grooming fair. Speech is Appropriate. Mood is depressed. Affect is constricted. Thoughts are linear and logical. No evidence of psychosis. Client Response/Progress/Benefit: []Pt attentive throughout, however contributed limited input to discussion. Taking notes throughout and nodding as fellow participants reflected on challenge activity. Engaged in creating own mental health SMART goal and seemed to benefit from developing ways to overcome potential barriers to reaching this goal. Pt identified her SMART goal is to write down her feelings/thoughts from the day every evening for 15 minutes. Pt stated this goal will benefit her by releasing her emotions and thoughts in a healthy manner. Pt identifies having no time and other responsibilities as potential barriers to goal. Pt identified solutions to barriers to include setting reminders and incorporating goal into daily routine. Pt's first day in IOP. Pt to continue IOP to improve healthy coping, improve stability, and prevent decompensation. Narrative Note: []
--- NOTE | 2019-02-13 12:36 | BH.COMM ---
Communication Note - Communication with Client Communication Note: Met with patient after group to check-in as this was her first day in IOP. Also wanted to complete risk assessment as pt had indicated suicidal ideation as 2/5 and intent as 3/5 this AM on symptom tracker. We discussed her responses on the tracker and it appears as if she was confused. When asked if she had any suicidal ideations today she stated no. Denies any intent or plan. Reports last suicidal thought was last week during a break down. Reports that during these break downs she has thoughts about not wanting to be alive which she describes as more passive. When asked about intent she reports I want the pain to go away however has not developed any plan. Future-oriented with IOP. Protective factors are children. Smiling and interacting well during check-in. Does not present as imminent danger to herself due to no active suicidal ideations, plan, or intent. Contracts for safety. Some confusion regarding the daily symptom tracker questions as this was her first day in IOP. Plan is to return on Wednesday.
--- NOTE | 2019-02-15 09:01 | BH.SGPN.GN ---
Behaviors/Verbalizations/Mental Status: []Eye contact is good. Motor activity is appropriate. Appearance is casual. Speech is Appropriate. Mood is euthymic. Affect is full. Thoughts are linear and logical. No evidence of psychosis. Reviewed daily check in sheet and no reports of suicidal ideations or intent. Client Response/Progress/Benefit: []Pt listened attentively to peers and provided input when elicited by therapist. Emotion for today is hyper. Pt indicated that she currently doesn't have a stressor. Pt identified one positive was being able to clean and organize her bedroom yesterday. Pt stated she felt more organized and less cluttered after cleaning her bedroom. Pt identified additional positive as mowing the grass, which she stated is something she has been putting off for some time. Pt reported she used positive self-talk to motivate self to complete the tasks. Progress noted in application of positive self-talk to motivate self to complete household tasks. Continued IOP tx recommended to improve mood stability, prevent decompensation, and improve emotion regulation skills. Narrative Note: []
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
--- NOTE | 2019-02-15 10:08 | BH.DR.ITP ---
Initial Treatment Plan - Patient Information Visit Information: ADMISSION DATE: EXPECTED LOS: 4-6 weeks - Problems/Symptoms Problem #1:: Depressison Symptom:: Sadness, low energy, lack of motivation, negative rumination Problem #2:: History of trauma Symptom:: Flashbacks, reexperiencing
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
--- NOTE | 2019-02-15 11:15 | BH.SGPN.GN ---
Behaviors/Verbalizations/Mental Status: [Client alert and oriented, casual in appearance. Eye contact good. Motor activity appropriate. Speech within normal limits. Affect congruent, mood euthymic. Thoughts linear, logical, no signs of hallucinations or delusions.] Client Response/Progress/Benefit: [Pt an attentive and positive participant, actively engaged during discussion. Pt able to connect with the discussion reviewing three categories of skills for managing anxiety which included mind-based, body-based, and self-soothing. Pt did well to brainstorm with the group various skills within the different categories, expressing interest most in body-based interventions. Pt completed worksheet identifying what relaxation skills she currently uses to manage anxiety and identified what skills she would be willing to begin trying to help manage anxious symptoms. Pt identified she is willing to try the following relaxation skills: journaling, 5 senses, self-help books, guided imagery, deep breathing, positive self-talk, and music. Pt seemed to benefit from increased awareness of healthy skills to manage anxious symptoms and identifying skills willing to practice outside treatment environment. Pt progress noted in self-report of improved mood and decreased isolation, as well as improved communication with supports. Recommended to continue IOP level of care to continue to promote use of healthy coping skills, improve mood stability, and prevent decompensation.] Narrative Note: []
--- NOTE | 2019-02-15 14:03 | BH.MDN_ITS ---
Multi-Disciplinary Note - Note 60-min Individual Time Started:: 10:20 Date: 02/15/19 Purpose of session/treatment goals addressed:: The purpose of this session was to establish rapport and check-in with pt regarding adjusting to group therapy setting. Additionally, began discussing pt treatment goal and expectations, as well as assessed current symptoms, stressors, and psychosocial history relevant to treatment. Eye Contact:: Good, Other - tearful throughout discussion Motor Activity:: Appropriate Appearance:: Casual Speech:: Soft Mood:: Anxious, Depressed Affect:: Congruent - at times appearing constricted when discussing family hx Thoughts:: Linear, Logical, No evidence of hallucinations/delusions noted Staff Interventions:: Therapist asked open-ended questions build rapport and gather information on client symptoms, stressors, treatment goals, relevant hx and additional psychosocial concerns. Used active and reflective listening as client discussed ongoing stressors. Provided empathic responses and emotional support to normalize client emotions and mental health symptoms. Therapist applied a strengths-based approach to aid pt in identifying personal resilience factors and commended willingness to reach out for help in managing mental health sx. Therapist used SD techniques to identify treatment goals and potential barriers. Client Response:: Pt receptive to session, responded well to meeting with therap ist. Initially hesitant to discuss emotions and mental health hx as she reports never previously been in counseling. However, as pt became more comfortable she increased in willingness and ability to openly engage in session. Reports a hx of depression, trauma, and ?worrying?. Reports she often worries about her health as she has epilepsy and has a hx of frequent seizures. Pt shared she was referred to IOP program by her neighbor who lives across the street. Indicated a desire to seek mental health tx due to worsening symptoms of depression and trauma related anxiety which have impacted ability to complete daily responsibilities. Client reports she has experienced flashbacks, nightmares, and intrusive thoughts since her grandfather?s in 2000, but that these have intensified in the past few months. Pt noted sx of depression increasing around the same time. She attributes this to increased stress and limited assistance with her children after giving approximately 3 months ago. Pt reports sx were further exacerbated by statements made by her soon to be [id number] who pt describes as rude to everyone in the house. At time of session, pt endorses a depressed mood, anhedonia, anxiety, decreased appetite, low sense of self-worth, and intrusive thoughts related to fears she will have a seizure and not wake up. Reports experiencing suicidal ideation about a week ago, without plan, or intent. Denies current ideation plan or intent. Reports her children are her major motivations to keep living. Shared she wants to learn skills for better managing her trauma related sx and depression as she would like to set a good example for her children. Risks/Concerns:: No risks or concerns at this time. Client denies any active suicidal ideation, plan, or intent as of this date 02/15/19. Progress Toward Goals/Plan:: No progress to document at this time as it is pt's 2nd day in IOP. Pt reports feeling the first day was overwhelming as she is new to counseling, but that it went better than she had initially expected. She indicates strong motivation to improve her mental health in order to set an example for her children and ?continue to work on becoming a better person each day?. She expressed a desire to improve healthy coping, better understand and cope with past trauma, and decrease depression. Pt currently endorsing a depressed mood, anhedonia, intrusive trauma related thoughts, and anxiety. Client shared she has intrusive, negative thoughts have kept her from enjoying life, resulted in ?breaking down into crying spells, and kept her from completing her goals/responsibilities. Pt to continue IOP to prevent decompensation, increase mood stability, and improve ability to cope with distress. Time Stopped:: 11:14
--- NOTE | 2019-02-15 15:44 | BH.MTP_ITS ---
Master Treatment Plan - Patient Information Program Physician:: Dr. 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 Description of Barriers: Client has been estranged from her biological family for past 3 years and reports this causes her rumination, guilt, and loneliness. Per client's report, she does not find her boyfriend?s family supportive/underst anding of her mental health which impact pt mood and feeling of validation. Reports a hx of shutting down and not asking for help. Client has a history of trauma, drug use, and unhealthy coping skills such as internalizing and avoidance. Client has a felony hx as well which impacts ability to secure employment and leads to negative thoughts about self. Client has a [id number] and new born twins, so she has limited time for self-care. Functional Impact: Client is a 28-year-old female with a history of Depression, anxiety, and PTSD. Client was referred to IOP program due to worsening depressive symptoms and fleeting suicidal ideations. Client reports current symptoms of depression have impacted ability to function at baseline and indicates difficulties completing daily responsibilities. Endorses depressed mood, anhedonia, increased sleep and isolation, lack of motivation, passive thoughts of , and hopelessness. Client denies any active suicidal ideations, but she shares she wouldn?t mind getting sick and dying. Client reports increased PTSD sx causing anxiety and flashbacks, ruminations, and restlessness. Client?s symptoms have been impacting her social and familial functioning as well as her quality of life. Goal Relevant Strengths/Supports: Client is kind, receptive of change, and motivated to improve her mental health symptoms. Client has a good sense of humor and is willing to engage during individual and group sessions. She has demonstrated significant resilience as she has experienced numerous adverse experiences in her life and continues to move forward and remain hopeful that things will improve. Client has 4 children who she identifies as her motivations to live and reports she is in a happy relationship. Client identifies her boyfriend?s step-mother as her biggest support. Client is artistic and identifies this as healthy coping skill. - Objectives Objective #1 Stated Objective: Client will learn and utilize 2-3 healthy coping strategies to better manage depressive symptoms causing lack of motivation, isolation, and hopelessness as shown by a reduced DSM-5 cross cutting score for depression. Interventions: Through group and individual sessions, therapist will provide psychoeducation on depression, common sx, warning signs, and triggers. Therapist will then aid client in identifying her own triggers and warning signs of depression and emotional dysregulation including emotional, physical, and behavioral changes. Therapist will teach client various coping strategies to manage her sx and provide resources she may use to regulate emotions. Therapist will use CBT techniques to increase pt awareness of negative thoughts that reinforce depressive cycles. Therapist will assist client in identifying ways to break out of unhealthy maintenance cycles. Discharge Criteria: Client will have met this goal when she can report learning and using at least 2 new healthy coping skills to manage depressive symptoms and decrease isolation. Additionally, client will have met this goal when her DSM-5 scores for depression have decreased. Target Date: 03/27/19 Review Date: 03/13/19 Objective #2 Stated Objective: Client will identify at least 2-3 depressive thinking patterns that reinforce suicidal ideations and negative core beliefs of self. Pt will then learn to challenge and replace depressive thoughts with with positive, realistic messages. Interventions: Through groups and individual sessions client will learn to identify distorted, negative beliefs about self and replace with more realistic, affirmative messages. Therapist will use CBT to help client increase insight to the connection between thoughts, emotions, and behaviors. Therapist will encourage client to practice thought challenging. Target Date: 03/27/19 Review Date: 03/13/19 Problem/Goal #2 - Problem/Goal #2 Stated Goal:: Client will improve ability to cope with PTSD symptoms by increasing emotional regulation, reducing rumination, and improving anxiety management. Description of Barriers: Client has been estranged from her biological family for past 3 years and reports this causes her rumination, guilt, and loneliness. Per client's report, she does not find her boyfriend?s family supportive/understanding of her mental health which impact pt mood and feeling of validation. Reports a hx of shutting down and not asking for help. Client has a history of trauma, drug use, and unhealthy coping skills such as internalizing and avoidance. Client has a felony hx as well which impacts ability to secure employment and leads to negative thoughts about self. Client has a [id number] and new born twins, so she has limited time for self-care. Functional Impact: Client is a 28-year-old female with a history of Depression, anxiety, and PTSD. Client was referred to [facility] program due to worsening depressive symptoms and fleeting suicidal ideations. Client reports current symptoms of depression have impacted ability to function at baseline and i ndicates difficulties completing daily responsibilities. Endorses depressed mood, anhedonia, increased sleep and isolation, lack of motivation, passive thoughts of , and hopelessness. Client denies any active suicidal ideations, but she shares she wouldn?t mind getting sick and dying. Client reports increased PTSD sx causing anxiety and flashbacks, ruminations, and restlessness. Client?s symptoms have been impacting her social and familial functioning as well as her quality of life. Goal Relevant Strengths/Supports: Client is kind, receptive of change, and motivated to improve her mental health symptoms. Client has a good sense of humor and is willing to engage during individual and group sessions. She has demonstrated significant resilience as she has experienced numerous adverse experiences in her life and continues to move forward and remain hopeful that things will improve. Client has 4 children who she identifies as her motivations to live and reports she is in a happy relationship. Client identifies her boyfriend?s step-mother as her biggest support. Client is artistic and identifies this as healthy coping skill. - Objectives Objective #1 Stated Objective: Client will identify 2-3 PTSD related and emotional dysregulation triggers and 2 calming coping skills to reduce anxiety as shown by decreased DSM-5 cross-cutting score. Interventions: Therapist will help client increase awareness of PTSD related anxiety and emotional dysregulation triggers and educate client on ways emotions impact overall health. Therapist will teach client various calming strategies to promote emotional regulation and reduction of anxiety. Therapist will assist client in identifying warning signs and triggers. Therapist will discuss the benefit of self-care and self-compassion. Discharge Criteria: Client will have accomplished this goal when can report at least 2 triggers for PTSD/anxiety and state using 2 calming strategies to manage symptoms. Additionally, client will have accomplished this goal when her DSM-5 cross-cutting scores show a decrease in anxiety. Target Date: 03/27/19 Review Date: 03/13/19 Objective #2 Stated Objective: Client will identify 2-3 cognitive distortions and intrusive thoughts that lead to rumination and learn 2-3 ways to manage these thoughts to reduce anxiety and stress. Interventions: Therapist will provide education on the most common cognitive distortions and intrusive thoughts and teach client the connection between thoughts, emotions, and feelings. Therapist will assist client in identifying, challenging, and replacing dysfunctional thoughts with positive, more realistic thoughts. Therapist will use CBT and DBT techniques to help client gain awareness of thinking errors and learn how to more effectively handle negative thoughts that cause anxiety. Discharge Criteria: Client will have accomplished this goal when can identify at least 2 cognitive distortions that reinforce anxiety and at least 2 coping skills to manage negative thoughts. Target Date: 03/27/19 Review Date: 03/13/19
--- NOTE | 2019-02-17 09:04 | BH.SGPN.GN ---
Behaviors/Verbalizations/Mental Status: []Client alert and oriented, disheveled appearance. Eye contact good. Motor activity appropriate. Speech within normal limits. Affect constricted, mood apathetic. Thoughts linear, logical, no signs of hallucinations or delusions. Reviewed client?s symptom tracker, no risk for suicidal ideation, plan, or intent as of 02/17/19. Client Response/Progress/Benefit: []Client entered session alert and oriented. Quiet, but participating when prompted. Client reports feeling ?exhausted? today due to lack of sleep. Client was brief with her check in and at first struggled to identify mental health wins. Client reported she spent time outside with her daughter yesterday which was a mental health win for her. Client shared being outside was nice and she got to enjoy watching her daughter play in the water. Client?s current stressor is issues with sleep. Client shared she has had problems with sleep for a long time. With further exploration, it appears client could benefit from psychoeducation on sleep hygiene as client shared she often plays video games and watches movies before bed. Therapist helped explain how these activities could be contributing to her sleep difficulties. Progress limited due to recently starting IOP. Will continue IOP tx to prevent decompensation and improve mood stability.
--- NOTE | 2019-02-17 10:12 | BH.SGPN.GN ---
Behaviors/Verbalizations/Mental Status: []Client alert and oriented, disheveled appearance. Eye contact good. Motor activity appropriate. Speech quiet. Affect constricted, mood anxious. Thoughts linear, logical, no signs of hallucinations or delusions Client Response/Progress/Benefit: []Client participated worksheet activity, attentive during discussion. Listened and took notes as the group defined crisis and discussed examples of crisis situations. Client helped the group explore how coping with crisis in unhealthy ways can lead to a mental health crisis. Agreed that one can prevent external crises from turning into internal crises by recognizing early warning signs and using coping skills. Group identified warning signs one could have which included; drinking, distractions, avoidance, sleeping, and crying. Client completed her own personal warning signs worksheet. Client identified her top three crisis warning signs to be isolating, eating less, and feeling disconnected from people. Benefited from group by increasing awareness of crisis and personal warning signs. Progress limited as it is client?s first week in IOP. Will continue tx to prevent decompensation and improve daily functioning.?
--- NOTE | 2019-02-20 09:05 | BH.SGPN.GN ---
Behaviors/Verbalizations/Mental Status: [Eye contact is good. Motor activity is appropriate. Appearance is casual. Speech is Appropriate, normal rate and tone. Mood is euthymic, positive. Affect is congruent. Thoughts are linear and logical. No evidence of psychosis. Reviewed daily check in sheet and pt denies any SI, plan, or intent.] Client Response/Progress/Benefit: [Pt engaged in group discussion and more actively participating than in prior sessions. Emotion for today is hyper but tired and indicated that as she wakes up more she is beginning to feel more positive. Pt discussed current mental health wins as getting some of the household responsibilities done such as laundry. Shared that this is a mental health win as she becomes increasingly stressed and agitated when overwhelmed by tasks. Pt noted that her boyfriend?s stepmom has been a major support in helping her with daily tasks while pt adjusts to having twins. Shared additional win as plans to practice self-care of knitting/crocheting and indicated she will get the supplies to do so from [employer] this afternoon. ] Narrative Note: []
--- NOTE | 2019-02-20 10:20 | BH.SGPN.GN ---
Behaviors/Verbalizations/Mental Status: []Client alert and oriented, casually dressed and fair hygiene. Eye contact good. Motor activity appropriate. Speech within normal limits. Affect constricted, mood depressed. Thoughts linear, logical, no signs of hallucinations or delusions. Client Response/Progress/Benefit: []Pt passive participant, not providing input throughout session however appeared to listen to group members comments. Pt appeared to connect with peers comments about the impact perception of failure can have on mental health. Pt appeared to connect with thought that she sometimes views herself as a failure AEB pt nodding in agreement. Group identified consequences of fear of failure to include: stagnation, isolation, giving up, not trying new things, and unhealthy relationships. Pt seemed to benefit from increased awareness of how fear of failure can impact mental health. Pt to continue IOP level of care to improve application of healthy skills, continue to identify and challenge distorted thoughts, and prevent decompensation. Narrative Note: []
--- NOTE | 2019-02-20 11:23 | BH.SGPN.GN ---
Behaviors/Verbalizations/Mental Status: []Client alert and oriented, disheveled appearance. Eye contact good. Motor activity appropriate. Speech within normal limits. Affect congruent, mood anxious. Thoughts linear, logical, no signs of hallucinations or delusions Client Response/Progress/Benefit: []Client taking notes and providing feedback to discussion. Client completed fear of failure worksheet and shared with group. Client reported fear of failure has kept her stuck and prevents her from doing things. Client shared fear of failure is keeping client from enjoying the present and moving forward. Client identified barriers to overcoming fear of failure which included; negative self-talk, anxiety about the future, fear that good things will not last, and lack of self-love. Client identified things that she can do to overcome fear of failure such as; deep breathing, challenging negative thinking, focusing on her thoughts and opinions rather than others, and affirmations. Client reported her goal this week is to reach out to positive support and work on accepting herself when she makes mistakes. Benefited from identifying the impact that fear of failure has had on her life and developing strategies to overcome this. Client progressing as shown by her increased engagement during group. Will continue IOP to prevent decompensation and improve mood stability.
--- NOTE | 2019-02-22 09:10 | BH.SGPN.GN ---
Behaviors/Verbalizations/Mental Status: []Client alert and oriented, disheveled appearance. Eye contact good. Motor activity appropriate. Speech within normal limits. Affect full, mood euthymic. Thoughts linear, logical, no signs of hallucinations or delusions. Reviewed client?s symptom tracker, no risk for suicidal ideation, plan, or intent as of 02/22/19. Client Response/Progress/Benefit: []Client responded well to session, attentive and participating when prompted. Client reports feeling ?motivated? today. Client shared this morning she was feeling tired, but she motivated herself to get out of bed, take out the trash, and get herself to group. Client reported she used positive self-talk and reminding herself of her responsibilities as coping skills this morning. Client also stated on her walk to IOP this morning she was engaging in mindfulness. Client reported ?a bird came up and landed on my foot, it was so cool!? Client was smiling and cheerful about the experience. Client shared her current stressor is that some things are broken around her house and she needs to go home and fix them. Appeared to benefit from reflecting on her wins this morning. Progress noted in application of coping skills this morning. Will continue IOP to promote emotional regulation and improve mood stability.
--- NOTE | 2019-02-22 10:15 | BH.SGPN.GN ---
Behaviors/Verbalizations/Mental Status: [] Eye contact is good. Motor activity is appropriate. Appearance is casual. Speech is Appropriate. Mood is depressed. Affect is flat. Thoughts are linear and logical. No evidence of psychosis. Client Response/Progress/Benefit: [] Pt was an active participant in group activity and discussion. Provided insight on quote of the day. Group worked together to identify what are pitfalls when it comes to mental health recovery which included; lack of awareness, lack of motivation, cognitive distortions, poor boundaries, toxic relationships, shutting down, isolating, and negative thoughts. Group discussed the impact of pitfalls and how these can impact progress. Attentive during psychoeducation. Pt participated in group activity. Pt admitted to getting irritable and frustrated with the activity and ultimately became quiet ans passive. Was able to relate this to feelings associated with encountering a mental health pitfall. Group identified that when they encountered challenges during the activity they began to; lewis things, began to focus on failing, had increased negative thoughts, and became overstimulated and overwhelmed. Related these to emotions and actions that occur when they encounter mental health pitfalls. Benefited from group by increased awareness on recognizing and understanding the impact of mental health pitfalls. Narrative Note: []
--- NOTE | 2019-02-22 11:14 | BH.SGPN.GN ---
Behaviors/Verbalizations/Mental Status: [Client alert and oriented, casually dressed and groomed. Eye contact fair to good. Motor activity appropriate. Speech within normal limits. Affect congruent to topic being discussed, mood euthymic. Thoughts linear, logical, no signs of hallucinations or delusions. ] Client Response/Progress/Benefit: [Pt receptive of session, engaged throughout and providing positive input to group discussion. Attentive and taking notes during discussion. Pt completed a worksheet where she identified personal pitfalls which included: negative thoughts related to physical/medical restrictions, lack of familial support, low self-esteem, isolating as a safety behavior. Pt went on to describe shutting down and not feeling able to talk to supports about mental health as her largest pitfall which contributes to ongoing depressive sx. Pt actively listening during discussion on how the strategies used to overcome pitfalls in challenge activity could be applied to daily life. Group worked together to identify strategies to overcome personal and general pitfalls. Pt identified personal strategies to try as: think more positively of myself, talk more to people who understand/support what I?m going through, and listen to more music to motivate me and distract from thinking negatively. Benefited from identifying personal and general pitfalls and strategies to over these pitfalls. Pt has made progress in IOP with increasing self-awareness and making daily efforts to increase ability apply identified coping strategies. Recommended continue tx to promote change behaviors, regulate emotions, decrease depression, and prevent decompensation.] Narrative Note: []
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
--- NOTE | 2019-02-22 15:44 | BH.MDN_ITS ---
Multi-Disciplinary Note - Note 30-min Individual Time Started:: 08:20 Date: 02/22/19 Purpose of session/treatment goals addressed:: The purpose of this session was to assess current stressors, symptoms, and progress in IOP tx. Another goal was to review different types of coping skills and identify healthy emotional expression tools pt may use when feeling invalidated. Other topics included medication concerns and small goal setting. Motor Activity:: Appropriate Appearance:: Casual Speech:: Appropriate Mood:: Euthymic, Anxious Affect:: Congruent Thoughts:: Linear, Logical, No evidence of hallucinations/delusions noted Staff Interventions:: Therapist used active listening and open-ended questions to explore client's current stressors, symptoms, and perception of treatment progress. Therapist provided emotional support to validate and normalize client's emotions and frustrations with supports. Therapist helped client process and provided psychoeducation on healthy coping via emotional release. Therapist assisted client in setting small daily goals to practice new coping skills. Client Response:: Pt receptive of session, actively engaged in discussion throughout. She reports feeling she has made progress since beginning IOP tx last week and attributes this primarily to feeling her mental health needs are supported and validated in the group environment. Pt discussed that this is a major shift for her as in the past she has experienced adverse reactions from others when attempting to discuss mental health concerns. Pt elaborated that although she frequently has people around her at home, she does not feel they understand or are interested in listening to pt regarding her mental health. Able to identify the impact this has had in reinforcing negative thought patterns and feeling isolated. Pt shared she has historically refrained from reaching out to others as a result. Able to identify that her supports may play a different role in her life and that she may have to find alternative resources regarding mental health support. Shared interest in becoming involved with local mental health support resources following completion of IOP. Pt indicated using art in the past as a means of feeling close with her father when missing him. Open to the idea of using art as a means of emotional expression to provide additional support when unable to find a positive support person to discuss her mental health needs, frustrations, or thoughts. Expressed willingness to try using this as a skills when feeling depressed during the week. Worked with therapist to begin identifying warning signs and triggers for depression, however pt indicated difficulties in doing so. Encouraged to begin writing down what was going on right before noticing a change in mood to begin pinpointing specific triggers or warning signs. Pt shared that overall she has seen improvements in mood since knowing she has the support of the IOP program. Indicated concerns regarding the Lexapro she had been prescribed by program psychiatrist the previous week. Pt indicated dizziness, nausea/vomiting, increased anxiety, and lightheadedness. Pt recently also reports significantly reducing regular energy drink consumption which may also be contributing to ph ysical sx. Pt assured her concerns will be communicated with program psychiatrist who will follow-up. Risks/Concerns:: No risks noted, pt denies any current SI, plan, or intent as of this tom 02/22/19. Pt has indicated concerns regarding possible medication side effects. This has been communicated with program psychiatrist who will follow- up. Progress Toward Goals/Plan:: Pt appears to be progressing towards her treatment goals as shown by her report of I feel more comfortable talking about mental health in the groups. Client reports that outside of medication concerns she has seen improvements in her overall perspective and mood. Indicates feeling less depressed and has been able to spend time with her family outside. However additionally reports increased difficulties with feeling understood and supported regarding mental health by her boyfriend and his family which is an ongoing stressor. Continues to report difficulties in opening up to others, application of healthy skills, and managing her emotions. Pt to continue IOP to prevent decompensation, increase understanding of warning signs and triggers, as well as improve mental health functioning. Time Stopped:: 08:55
== END 2019-02-22 23:59 ==
LOC: BHIOP 09:00
PROVIDERS: Referring Provider Psychiatry & Neurology Psychiatry; Visit Provider Psychiatry & Neurology Psychiatry
DX: F33.2 Major depressive disorder, recurrent severe without psychotic features (principal); F41.1 Generalized anxiety disorder; F43.10 Post-traumatic stress disorder, unspecified; Z79.899 Other long term (current) drug therapy; G40.909 Epilepsy, unspecified, not intractable, without status epilepticus; Z91.5 Personal history of self-harm; F17.210 Nicotine dependence, cigarettes, uncomplicated
CPT/HCPCS: 90792; 99214; H0035; H2012; H2020; 90832; 90837

== ENCOUNTER 2019-02-24 09:00 | Outpatient (RCR) | payer MEDICAID, SELFPAY ==
--- NOTE | 2019-02-24 09:06 | BH.SGPN.GN ---
Behaviors/Verbalizations/Mental Status: [Client alert and oriented, casually dressed. Eye contact good. Motor activity appropriate. Speech within normal limits. Affect congruent to topic being discussed, mood euthymic, positive. Thoughts linear, logical, no signs of hallucinations or delusions. Reviewed daily check in sheet, pt denies any current SI, plan, or intent.] Client Response/Progress/Benefit: [Pt engaged in group discussion, actively listening and providing input throughout. Emotion for today is awake and motivated. Pt indicated that current emotion is due to starting to apply what she has learned in treatment as well as actively challenging negative thoughts. Identified current mental health win as spending time with her neighbor who is a healthy support rather than isolating. Additional win is spending time with her daughters outside. Pt appeared to benefit from identifying what has been aiding in progress as well as creating a weekend plan to maintain positive mood. Progress noted in pt ability to use opposite action and self-talk to combat depressive sx. Pt recommended continued IOP tx to promote use of coping skills, improve communication with supports, and prevent decompensation. ] Narrative Note: []
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
[2019-02-24 09:13] VITALS: BP 112/70; PULSE 104; RESP 14
--- NOTE | 2019-02-24 10:10 | BH.SGPN.GN ---
Behaviors/Verbalizations/Mental Status: []Client alert and oriented, disheveled appearance. Eye contact good. Motor activity appropriate. Speech within normal limits. Affect congruent, mood euthymic. Thoughts linear, logical, no signs of hallucinations or delusions. Client Response/Progress/Benefit: []Client was an active participant in group activity and discussion. Client connected with the topic and able to identify common barriers that keep people stuck from moving forward. Worked with group to identify common internal barriers that keep people stuck which included; fear of the unknown, fear of rejection, fear of failure, unmanaged emotions, negative thoughts, self-doubt, and lack of motivation. Client identified her current reality as feeling insecure, fear of failure, not feeling in control of her emotions, and lacking motivation. Client shared her realistic, desired reality would be client feeling more in control of her responses when ?bad things happen? and being able to move forward. Client shared she also wants to learn to let go of the past and find better supports. Client identified personal strengths including; listening to uplifting music, positive self-talk, and reaching out to friends as positives that will help client move closer to her desired reality. Benefited from group as client was able to identify current mental health state and barriers that are impacting progress. Will continue IOP to prevent decompensation and improve emotional regulation.
--- NOTE | 2019-02-24 11:10 | BH.SGPN.GN ---
Behaviors/Verbalizations/Mental Status: []Client alert and oriented, casual dress, hygiene tended to. Eye contact good. Motor activity appropriate. Speech within normal limits. Affect constricted, mood euthymic. Thoughts linear, logical, no signs of hallucinations or delusions. Client Response/Progress/Benefit: []Pt active participant as evidenced by pt contributing thoughts and ideas during discussion and listened attentively to peers. Pt identified current barriers keeping her from desired reality include: past memories, not managing her emotions, and worries. Pt worked cooperatively to identify strategies to overcome various barriers which included: using healthy distractions, challenging negative thoughts, logging anxious thoughts, opposite action, and focusing on future goals. Pt reported she plans to focus on using healthy distraction and setting small goals to help overcome personal barriers to desired reality. Pt seemed to benefit from identifying strategies she will use to overcome personal barriers. Pt to continue IOP level of care to continue use of healthy coping skills, identify and challenge distorted thoughts and prevent decompensation. Narrative Note: []
--- NOTE | 2019-02-27 09:05 | BH.SGPN.GN ---
Behaviors/Verbalizations/Mental Status: []Client alert and oriented, casual dress, hygiene tended to. Eye contact good. Motor activity appropriate. Speech within normal limits. Affect congruent, mood euthymic and positive. Thoughts linear, logical, no signs of hallucinations or delusions. Reviewed client?s symptom tracker, no signs of suicidal ideation, plan, or intent as of today. Client Response/Progress/Benefit: []Pt was passive participant AEB pt sharing thoughts when elicited by therapist. Pt reported a mental health positive was attending a baby fair in [facility] in which she was able to get many free resources. Pt identified additional positive to be cleaning and organizing her room. Pt stated having a clean and organized room improves her mood because feels less overwhelmed. Pt stated another positive was getting out of bed this morning despite not feeling motivated. Pt identified her twins to be motivation to get moving and get to IOP. Pt progressing with utilizing supports by attending the baby fair and applying skills outside treatment environment. Continued IOP tx recommended to continue use of healthy coping skills, prevent decompensation, and identify and challenge distorted thoughts. Narrative Note: []
--- NOTE | 2019-02-27 10:18 | BH.SGPN.GN ---
Behaviors/Verbalizations/Mental Status: []Client alert and oriented, disheveled appearance. Eye contact good. Motor activity appropriate. Speech within normal limits. Affect congruent, mood euthymic. Thoughts linear, logical, no signs of hallucinations or delusions. Client Response/Progress/Benefit: []Client was mostly quiet, but she occasionally contributed to group discussion and participated in activity. Attentive and engaged during discussion of how emotions and negative thinking impact ability to change. Client reported change and cause negative thinking and feelings of insecurity. Worked with the group to identify benefits to making changes in our lives which included; improved self-esteem, improved mental health, and better opportunities. Group then identified barriers to change or what keeps us from making changes which included; negative thinking, unmanaged mental health symptoms, fear of the unknown, anxiety, fear of failure, insecurity, lack of motivation, and ambivalence. Client participated along with group in activity where they identified and discussed the emotions related to change. Benefited from increased awareness and understanding of emotions, benefits, and barriers related to change. Client showing progress as shown by her report of implementing health coping skills, but she can continue to benefit from IOP to improve mood stability and functioning.
--- NOTE | 2019-02-27 11:20 | BH.SGPN.GN ---
Behaviors/Verbalizations/Mental Status: [Eye contact good. Motor activity is appropriate. Appearance is casual. Speech is appropriate rate and tone. Mood is euthymic. Affect is congruent with mood. Thoughts are linear and logical. No evidence of psychosis.] Client Response/Progress/Benefit: [Client responded well to session, attentive and providing some insight to discussion. Client participated in the activity and processed emotions and barriers associated with making change. Client appeared to connect with discussion on weighing the pros and cons associated with change and benefited from learning to do so through use of decisional balance sheet. Identified a change she would like to make to improve mental health as: reaching out more to supports. Client reported potential benefits of change as: getting her needs met, improving her relationships with supports, and increased self-confidence. While the costs of not making the change included: rejection, increased anxiety, not getting the type of help desired. Progress noted in ability to identify how making this change may promote additional healthy behaviors and thinking patterns. Recommended continued IOP to continue to promote use of healthy coping skills and improve interpersonal effectiveness skills.] Narrative Note: []
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
--- NOTE | 2019-03-01 10:08 | BH.SGPN.GN ---
Behaviors/Verbalizations/Mental Status: []Eye contact is good. Motor activity is appropriate. Appearance is casual, appropriate grooming. Speech is Appropriate. Mood is dysthymic. Affect is constricted. Thoughts are linear and logical. No evidence of psychosis. Client Response/Progress/Benefit: []Pt active participant in group AEB pt contributing thoughts and ideas throughout session and listening attentively to peers. Group worked together to identify barriers to making changes or taking action in their lives which included: lack of self-awareness, old habits, negative mindset, fear of failure, lack of resources, and other people. Group also identified that benefits of change which included; improved relationships, increased communication, improved mental wellness, increased confidence, and feelings of accomplishment. Pt identified areas she would like to take back control over to include: ruminating on past memories, others' judgements, self-doubt, and unmanaged emotions. Benefited from group through awareness of personal areas want to improve and benefits to taking action towards mental wellness. To continue IOP level of care to continue use of healthy coping skills, continue to challenge distorted thoughts and prevent decompensation. Narrative Note: []
--- NOTE | 2019-03-01 11:08 | BH.SGPN.GN ---
Behaviors/Verbalizations/Mental Status: []Client alert and oriented, disheveled appearance. Eye contact good. Motor activity appropriate. Speech within normal limits. Affect constricted, mood depressed. Thoughts linear, logical, no signs of hallucinations or delusions. Client Response/Progress/Benefit: []Client responded well to session, quiet, but participating when prompted. Client identified less self-doubt as the one thing she wants to start taking more action on in her mental health treatment. Client reported focusing on this will help client gain more control over her emotions, be more motivated, and better herself. Client attentive during psychoeducation on the different zones of change. Client able to give examples of benefits and costs in each zone. Client identified two small activities to promote behavioral activation towards her goal of reducing self-doubt. Client plans to listen to positive, uplifting music once a day and to start drawing. Client reported her friends can hold her accountable and client predicted that her mood would significantly improve if she followed through with these goals. Benefited from psychoeducation and small goal setting. Progress noted in client?s increased engagement and self-awareness. Client continues to report a depressed mood and difficulty regulating her emotions. Will continue IOP to prevent decompensation and increase coping skills.
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
--- NOTE | 2019-03-03 10:18 | BH.SGPN.GN ---
Behaviors/Verbalizations/Mental Status: [Client alert and oriented, casual appearance. Eye contact good. Motor activity appropriate. Speech within normal limits. Affect congruent, mood euthymic. Thoughts linear, logical, no signs of hallucinations or delusions. ] Client Response/Progress/Benefit: [Pt was an active participant in group discussion. Processed quote of the day with peers. Group discussed the MH benefits to open and clear communication with support and providers. Pt connected with peers discussing use of nonverbal behavior to communicate how she feels because. Shared doing so out of anxiety, but recognized that this has had unhelpful impacts on overall relationships. Group discussed the barriers that tend to impact clear and open communication which include: fear, apathy, distorted thoughts, misinterpretations, past negative experiences, not wanting to hurt other?s feelings and assumptions. Pt was attentive during psycho-education on communications styles (aggressive, passive, passive-aggressive, and assertive). Also provided input on the pros and cons to each communication style. Pt stated she could connect with all the different communication styles, specifically that of passive and passive-aggressive. Pt seemed to benefit from increased insight on how communication impacts mental health. Pt to continue IOP level of care to increase generalization of healthy coping skills, identify and challenge distorted thoughts and prevent decompensation.] Narrative Note: []
--- NOTE | 2019-03-03 11:20 | BH.SGPN.GN ---
Behaviors/Verbalizations/Mental Status: []Client alert and oriented, disheveled appearance. Eye contact good. Motor activity appropriate. Speech within normal limits. Affect constricted, mood anxious. Thoughts linear, logical, no signs of hallucinations or delusions. Client Response/Progress/Benefit: []Client responded well to session, attentive, passive, but taking notes. Attentive during ongoing psychoeducation on the different communication styles. Client able to gain insight into her communication style and client reported she is passive. Client stated, ?I?m always trying to avoid?. Client shared she is tired of not getting her needs met and she has low self-esteem. Client able to recognize that being passive has negatively impacted her mental health and reinforced depression. Attentive during group activity. Able to use the activity to reflect on ways to improve communication. Attentive during psychoeducation on D.E.A.R M.A.N and reported she wants to work on negotiating rather than holding in her opinions when communicating. Appeared to benefit from increasing self-awareness and practicing in the moment coping skills. Client will continue tx to prevent decompensation and reduce depressive symptoms.
--- NOTE | 2019-03-06 09:03 | BH.SGPN.GN ---
Behaviors/Verbalizations/Mental Status: []Client alert and oriented, disheveled appearance. Eye contact good. Motor activity appropriate. Speech within normal limits. Affect incongruent-smiling but reporting anxiety and dysthymia. Mood depressed. Thoughts linear, logical, no signs of hallucinations or delusions. Reviewed client?s symptom tracker, no risk for suicidal ideation, plan, or intent as of 03/06/19. Client Response/Progress/Benefit: []Client responded well to session, quiet, but participating when prompted. Client reports feeling ?exhausted? today due to a ?rough weekend.? Client declined to elaborate on this with group, but stated her physical health contributed to the rough weekend. Client shared she did not let the rough weekend get her down and client reported she was able to find positives. Client stated she engaged in self-care this weekend by painting her nails which offered client some relief. Client appeared to benefit from reflecting on positives and connecting with peers. Will continue IOP tx as client has shown strides in learning coping skills, but she continues to report a depressed mood with isolative behaviors.?
--- NOTE | 2019-03-06 10:15 | BH.SGPN.GN ---
Behaviors/Verbalizations/Mental Status: []Client alert and oriented, casually dressed and groomed. Eye contact good. Motor activity appropriate. Speech within normal limits. Affect constricted, mood dysthymic. Thoughts linear, logical, no signs of hallucinations or delusions. Client Response/Progress/Benefit: []Pt active participant AEB pt contributing thoughts throughout discussion and appearing to listen attentively to peers. Group identified unhealthy boundaries to include: difficulty saying no, not valuing own thoughts/opinions, sharing too much information, and not asking for help. Pt reported in regards to boundaries pt struggles with: saying no to others at times and at times taking on too much from others. Pt seemed to benefit from increased awareness how not setting boundaries negatively impacts mental health. Pt to continue IOP level of care to continue use of healthy coping skills, challenge distorted thoughts, and prevent decompensation. Narrative Note: []
--- NOTE | 2019-03-06 11:26 | BH.SGPN.GN ---
Behaviors/Verbalizations/Mental Status: [Client alert and oriented, casually dressed, grooming appears to be inconsistent as clothing clean but pt has a distinct body odor. Eye contact good. Motor activity appropriate. Speech within normal limits. Affect congruent to topic being discussed, mood dysthymic. Thoughts linear and logical, no signs of hallucinations or delusions. ] Client Response/Progress/Benefit: [Pt responded well to session, semi-active participant and remained an active listener throughout. She worked with the group to review different boundary setting styles and reported connecting with the ?porous? boundary setting type. Pt reflected that her boundary style has impacted overall ability to take care of herself and have felt her self-esteem has been impacted as a result. Pt indicated a desire to work towards healthier boundaries and actively listened as the group reviewed characteristics of healthy boundaries. She discussed struggling significant in this area and appeared to benefit from increasing awareness of personal boundary style and from learning ways to increase healthy boundaries. Identified strategies she could use to improve healthy boundaries as ?practicing self-care? and making herself a priority however pt continues to struggle significantly with regulating her emotions. Recommended continued IOP tx to improve emotion regulation and mood management, increase internal coping skills, and prevent decompensation.] Narrative Note: []
--- NOTE | 2019-03-08 09:06 | BH.SGPN.GN ---
Behaviors/Verbalizations/Mental Status: []Client alert and oriented, disheveled appearance. Eye contact good. Motor activity appropriate. Speech within normal limits. Affect congruent, mood euthymic. Thoughts linear, logical, no signs of hallucinations or delusions. Reviewed client?s symptom tracker, no risk for suicidal ideation, plan, or intent as of 03/08/19. Client Response/Progress/Benefit: []Client responded well to session, attentive and engaged throughout the session. Client reports feeling ?relaxed? today. Client shared that she has been struggling with her physical health lately, which has negatively impacted her mood and triggered urges to isolate. Client reported her mental health win is that despite physical issues, she motivated herself to get out of bed and take out the trash this morning. Client also played with her daughters yesterday and has been using drawing as a coping skill. Appeared to benefit from reflecting on her application of coping skills and ability to challenge her perspective. Client will continue IOP to reduce isolative behaviors and decrease depressive symptoms.
--- NOTE | 2019-03-08 11:17 | BH.SGPN.GN ---
Behaviors/Verbalizations/Mental Status: []Client alert and oriented, disheveled in appearance. Eye contact fair. Motor activity appropriate. Speech within normal limits. Affect flat, mood dysthymic. Thoughts linear, logical, no signs of hallucinations or delusions. Client Response/Progress/Benefit: []Pt was an semi-active participant, did well to participate in group activity and provided insight and input to discussion at times. Worked with group members to identify connections between activity and strategies for overcoming barriers to making changes. Identified a specific change she would like to make for her mental health, barriers to making that change, and a SMART goal to reach that change. Shared she would like to work on decreasing isolative behaviors. Pt stated her SMART goal is to hangout with a friend for an hour three times a week. Pt accepted feedback of scheduling her hangouts so she follows through. Benefited from group as she was able to identify strategies to overcome barriers to change and create a plan for implementing one small change promoting personal growth. Pt to continue IOP level of care to decrease isolation, challenge distorted thoughts and prevent decompensation. Narrative Note: []
--- NOTE | 2019-03-10 09:00 | BH.SGPN.GN ---
Behaviors/Verbalizations/Mental Status: [] Eye contact is good. Motor activity is appropriate. Appearance is casual. Speech is Appropriate. Mood is depressed. Affect is flat. Thoughts are linear and logical. No evidence of psychosis. Reviewed daily check in sheet and no reports of suicidal ideations or intent. Client Response/Progress/Benefit: [] Limited participation unless prompted. Shared that she has accomplished some household responsibilities that she has been avoiding. Reports that this was a mental health win for her. Remaining busy and engaged. No reports of overwhelming emotions. Very quick and superficial check-in noted. Recent ER admission due to medical concern this week which has increased stress. Progress noted per pt report. Benefited from group support, encouragement, and feedback. Will continue in IOP to maintain safety, prevent decompensation, and improve coping skills. Narrative Note: []
--- NOTE | 2019-03-10 10:14 | BH.SGPN.GN ---
Addendum entered and electronically signed by Patricia Luna 07/25/19 15:11: Incorrect date. Group date should be 03/08/19 Original Note: Behaviors/Verbalizations/Mental Status: []Client alert and oriented, disheveled appearance. Eye contact good. Motor activity appropriate. Speech within normal limits. Affect constricted, mood dysthymic. Thoughts linear, logical, no signs of hallucinations or delusions. Client Response/Progress/Benefit: []Client responded well to session, taking notes, and listened attentively to peers. Client participated in group discussion regarding mental health benefits of change. Client identified three small personal changes to improve mental health as: letting go of past memories, increase confidence, and decrease isolation. Identified current barriers keeping client from making those changes to be other?s judgement, lack of motivation, and wanting to be alone. Client appeared to benefit from gaining awareness of personal changes that would improve mental health and the barriers keeping client stuck. Progress noted as shown by client?s report of practicing opposite action rather than isolating. Will continue IOP tx to prevent decompensation, improve mood stability, and reduce depressive symptoms.
--- NOTE | 2019-03-10 10:15 | BH.SGPN.GN ---
Behaviors/Verbalizations/Mental Status: []Client alert and oriented, casual appearance. Eye contact poor. Motor activity appropriate. Speech within normal limits. Affect flat, mood dysthymic. Thoughts linear, logical, no signs of hallucinations or delusions. Client Response/Progress/Benefit: []Client was a passive group member and appeared disengaged from discussion. Client appeared to listen as the group worked together to identify barriers that keep one from choosing a new and healthier path to mental wellness which included; unhealthy habits, self-doubt, feeling overwhelmed, lack of awareness, substances, isolation, negative thinking, and ?choosing misery.? Attentive during psychoeducation on the chapters of life. Client was quiet during discussion on the ?Chapters of My Life? handout. Client was nodding while group members discussed the differences between chapters. Benefited from increased awareness and education on barriers to choosing new wellness paths and chapters of life. Mild progress as client is often quiet and does not share much about her mental health during group sessions.
--- NOTE | 2019-03-10 11:15 | BH.SGPN.GN ---
Behaviors/Verbalizations/Mental Status: []Client alert and oriented, casually dressed and groomed. Eye contact good. Motor activity appropriate. Speech within normal limits. Affect flat, depressed mood. Thoughts linear, logical, no signs of hallucinations or delusions. Client Response/Progress/Benefit: []Client was an active participant in group discussion, contributing to discussion and listened attentively to others. Completed worksheet and willing to show therapist, but elected to not share with group. Client reported belief she is in chapter 4? as client shared has learned from past mistakes which has helped her make more positive choices. Client shared to get to the next chapter she will focus on increasing her positive self talk and make realistic goals. Client identified things she is currently doing that will help her get to the next chapter including self-awarness and focusing on her progress. Stated she recognizes that ignoring problems and lack of self awarness negatively impact growth at times. Benefited from group by identifying thoughts and behaviors that have kept her stuck and developing plan to promote progress. Will continue in IOP to increase consistent utilization of healthy coping, promote gains, and prevent decompensation. Narrative Note: []
--- NOTE | 2019-03-15 09:05 | BH.SGPN.GN ---
Behaviors/Verbalizations/Mental Status: []Client alert and oriented, disheveled appearance. Eye contact good. Motor activity appropriate. Speech within normal limits. Affect incongruent-smiling but reporting exhaustion, mood anxious. Thoughts linear, logical, no signs of hallucinations or delusions. Reviewed client?s symptom tracker, no risk for suicidal ideation, plan, or intent as of 03/15/19. Client Response/Progress/Benefit: []Client responded well to session, attentive and engaged throughout. Client reports feeling ?exhausted? today. Client reported she does not feel mentally, but physically exhausted. Client reported she does not have any significant stressors today. Client shared two mental health wins today which included taking her twins their doctor appointment and ?they did well.? Client stated she also cleaned her house which is a calming coping for client. Client appeared to benefit from reflecting on her positives and connecting with peers. Will continue IOP to promote mood stability and further reduce depressive symptoms.
--- NOTE | 2019-03-15 10:15 | BH.SGPN.GN ---
Behaviors/Verbalizations/Mental Status: []Client alert and oriented, casually dressed and fair grooming. Eye contact good. Motor activity appropriate. Speech within normal limits. Affect flat, mood dysthymic. Thoughts linear, logical, no signs of hallucinations or delusions. Client Response/Progress/Benefit: []Pt passive participant as evidenced by pt not providing input throughout discussion, however did engage in activity and appeared to listen attentively to peers.. When processing activity pt appeared to connect with peers comments that it can be challenging to understand others perspective because often see a situation from own lens. Pt listed to group discussion about the impact perspective can have on mental health. Pt seemed to benefit from increased awareness of impact perspective has on mental health. Despite pt not actively engaging in group sessions progress noted with pt utilization of healthy coping skills outside treatment environment. Pt to continue IOP level of care to maintain gains, continue to utilize healthy coping skills, and prevent decompensation. Narrative Note: []
--- NOTE | 2019-03-15 11:20 | BH.SGPN.GN ---
Behaviors/Verbalizations/Mental Status: [Client alert and oriented, casually dressed and groomed, disheveled. Eye contact good. Motor activity appropriate. Speech within normal limits, minimal input provided. Affect congruent, mood euthymic, anxious. Thoughts linear, logical, no signs of hallucinations or delusions. ] Client Response/Progress/Benefit: [Client receptive of session, attentive and engaged some during small group discussion. At times remaining mostly passive but listening and present during discussion. Worked with group to discuss the mental health benefits of recognizing strengths which included; improved self-esteem, better relationships, increased hope, decreased anxiety, and willingness to ask for help. Group identified the barriers that have prevented them from acknowledging their strengths and successes. These barriers included; negative thoughts, feeling like a burden, fear of being judged, and past experiences. Group identified strategies to overcome barriers that prevent them from seeing strengths. Pt appeared more engaged during this portion of discussion. These strategies included; keeping track of ?wins?, challenging negative thoughts, using affirmations, and reaching out to supports to challenge perspective when needed. Client was able to identify personal strengths. Strengths included; being a good mother and friend, willingness to seek help, personal strength, and creativity. Appeared to benefit from recognizing personal strengths and identifying strategies to overcome barriers. Will continue IOP tx to improve mood stability, further increase consistency of healthy coping skill application, improve support system, and prevent decompensation.] Narrative Note: []
--- NOTE | 2019-03-16 09:00 | BH.SGPN.GN ---
Behaviors/Verbalizations/Mental Status: [] Eye contact is good. Motor activity is appropriate. Appearance is casual. Speech is Appropriate. Mood is euthymic. Affect is flat. Thoughts are linear and logical. No evidence of psychosis. Reviewed daily check in sheet and no reports of suicidal ideations or intent Client Response/Progress/Benefit: [] Pt spoke when prompted. Attentive. Emotion for today is calm. Very short check-in which is baseline for patient. Notes that she has been very calm in the past dew days. Notes that she feels that her emotions are more managable. Has begun to socialize more as well as started back up with her writing and drawing. Overall noted improvement and progress noted by pt. Increase self-care and emotion management. Hopeful. Benefited from group support, encouragement, and feedback. Will continue in IOP to maintain gains and prevent decompensation. Narrative Note: []
--- NOTE | 2019-03-16 10:08 | BH.SGPN.GN ---
Behaviors/Verbalizations/Mental Status: []Client alert and oriented, disheveled appearance. Eye contact good. Motor activity appropriate. Speech within normal limits. Affect congruent, mood euthymic. Thoughts linear, logical, no signs of hallucinations or delusions. Client Response/Progress/Benefit: []Client responded well to session, attentive and taking notes throughout. Attentive during discussion of the quote. Listened during the discussion of things that can keep people feeling trapped or stuck in life including; isolation, lack of trust, substance use, focusing on negatives, lack of awareness, denial, and lack of self-worth. Group discussed the connection between thoughts, emotions, and behaviors as well as how negative thinking can keep a person stuck. Client attentive during psychoeducation on maintenance cycles. Client able to identify negative thoughts that have reinforced depression and kept client feeling trapped. Client shared her negative thought which was ?I?ll never be able to do the things I want to do.? Client able to recognize this thought causes client to feel hopeless. Appeared to benefit from gaining awareness of how negative thoughts reinforce mental health symptoms and keep people stuck. Progress noted in client?s report of improved outlook and mood. Will continue IOP tx as she continues to struggle with consistent mood stability.
--- NOTE | 2019-03-16 11:10 | BH.SGPN.GN ---
Behaviors/Verbalizations/Mental Status: []Client alert and oriented, disheveled in appearance. Eye contact good. Motor activity appropriate. Speech within normal limits. Affect constricted, mood dysthymic. Thoughts linear, logical, no signs of hallucinations or delusions. Client Response/Progress/Benefit: []Client responded well to session, contributing to discussion and listening attentively to others. Client appeared to connect with maintenance cycles and recognized how negative thinking can keep a person stuck. Client identified a negative thought that has kept her stuck. Client?s thought was ?I'll never be able to do things I want to do.? Client able to connect how this thought maintains depressive cycle and keeps her from trying anything new. With assistance client able to reframe the thought to ?I may not be able to do everything I want, but there are plenty of activities I can engage in that are things within my physical limitations..? Client shared this thought would improve her mental health because it would make her put herself out there to try something new. Client appeared to benefit from practicing challenging negative thinking. Client to continue IOP to prevent decompensation. Narrative Note: []
--- NOTE | 2019-03-17 09:00 | BH.SGPN.GN ---
Behaviors/Verbalizations/Mental Status: [] Eye contact is good. Motor activity is appropriate. Appearance is casual. Speech is Appropriate. Mood is irritable. Affect is congruent. Thoughts are linear and logical. No evidence of psychosis. Reviewed daily check in sheet and no reports of suicidal ideations or intent. Client Response/Progress/Benefit: [] Pt spoke when prompted. Quiet however attentive. Short check-in which is baseline for pt. Continues to report gradual mood improvement noting that she is more relaxed, calm, and is having less negative thinking. Feels that she has more confidence and patient to manage daily stressors. I'm not overwhelmed with life. Notes improvement related to IOP and is using skills learned on consistent basis. Progress noted per pt report. Will continue in IOP to maintain gains and prevent decompensation. Narrative Note: []
--- NOTE | 2019-03-17 10:24 | BH.SGPN.GN ---
Behaviors/Verbalizations/Mental Status: [Client alert and oriented, casually dressed and appropriately groomed. Eye contact fair to good. Motor activity appropriate. Speech within normal limits. Affect constricted, mood anxious, euthymic. Thoughts linear, logical, no signs of hallucinations or delusions. ] Client Response/Progress/Benefit: [Client responded well to session, engaged in discussion and activity, though requiring prompt to participate in discussion at times. Client discussed the quote and shared ?how you express yourself or what you say can make you feel guilty and not want to express yourself again?. Pt expressed that lashing out in the past has kept her supports from helping her and led to client shutting down. Client shared That not being able to cope with emotions may lead to feeling more depressed and worthless. Client identified lack of understanding from supports and self-doubt as barriers to communicating emotions in a stressful situation. Client reported the benefit of being able to communicate during stressful situations is improved self-confidence. Client participated in the activity and did well to regulate her emotions while challenging self to take a leadership role. Client appeared to benefit from increasing awareness of how emotions can impact communication and practicing in the moment coping skills. Progress noted as client reports consistent use of coping skills to manage symptoms of depression. Client to continue IOP to reinforce healthy coping skills and prevent decompensation. ] Narrative Note: []
--- NOTE | 2019-03-17 11:27 | BH.SGPN.GN ---
Behaviors/Verbalizations/Mental Status: []Client alert and oriented, disheveled appearance. Eye contact good. Motor activity appropriate. Speech within normal limits. Affect constricted, mood euthymic. Thoughts linear, logical, no signs of hallucinations or delusions Client Response/Progress/Benefit: []Client attentive and taking notes during discussion. Attentive during psychoeducation on 4 zones of regulation. Client able to identify how she feels in each zone as well as how she acts in each zone. Client also able to identify coping skills she can use to support herself in each zone which included: music, walking, video games, mindfulness, and spending time with her kids. Client shared she is the ?green zone? today as client feels more confident and calm lately, per her report. Client reported she could benefit from spending time with her children today to maintain her happy, calm mood. Benefited from group from increased education on zones of regulation or stages of alertness for emotions and healthy coping skills to use for each zone. Client demonstrating progress as evidenced by her report of increased confidence. Will continue IOP tx to promote mood stability, reduce depressive symptoms, and increase self-care.
--- NOTE | 2019-03-17 16:04 | BH.MDN_ITS ---
Multi-Disciplinary Note - Note 30-min Individual Time Started:: 12:32 Date: 03/17/19 Purpose of session/treatment goals addressed:: Purpose of this session was to assess pt current symptoms, stressors, and application of skills learned. Another purpose was to discuss pt progress in IOP as well as review DSM cross- cutting scores from admission to present. Identified areas of focus for remaining duration of treatment. Eye Contact:: Good Motor Activity:: Appropriate Appearance:: Disheveled - hygiene appearing unkempt, Casual Speech:: Appropriate Mood:: Euthymic Affect:: Full, Bright Thoughts:: Linear, Logical, No evidence of hallucinations/delusions noted Staff Interventions:: Therapist asked open ended and furthering questions to ellicit additional information on current sx, stressors, and pt application of treatment materials learned, as well as pt perception of IOP treatment progress. Therapist utilized MN techniques to identify areas of growth as well as for continued focus, and create small goals to continue to promote change behaviors and progress towards established tx goals. Reviewed DSM cross-cutting scales with patient. Client Response:: Pt receptive of session reports ?I?m feeling in an ?alright state?..I?m feeling more calm?. She was smiling throughout session and openly discussed perception of progress in treatment so far. Pt reports she continues to notice improved confidence and decreased self-resentment, as well as decreased symptoms for depression. She shared that she has additionally noticed improved relationships with her supports and has even begun to develop a friendship with boyfriend?s father. Pt attributes this to having a more positive attitude and feeling better about herself in general. She notes that she has been trying to focus more on ?improving my present moment rather than letting my past define me? and has recently started a self-led ?self-healing? course online. She indicates this has been helpful so far. Pt reports actively using primary coping skills of taking time to engage in meaningful activities such as drawing, writing, and spending time with her kids outside. Indicates increased ability to connect with her supports and decreased isolation. Talked at length regarding fear about the impact unexpected trauma triggers have on self-esteem and discussed goals to increase use of internal coping skills when identifying warning signs to prevent increased depression and increase application of self- compassion in those moments. She continues to express guilt about her estranged family members though is improving in ability to cope during these moments. Hattie scussed strategies pt may use to continue to maintain progress made as well as increase consistency of skill application. Pt reports that thought challenging and reaching out to supports will be most important in continuing to maintain gains made. Risks/Concerns:: No risks or concerns at this time. Denies SI, plan, or intent as of this date 03/17/19 Progress Toward Goals/Plan:: Progress noted per pt report and decreased DSM Cross-cutting scores. Pt completed DSM cross-cutting scales as this is week 4 of her IOP treatment. When compared to her DSM scores on admission pt showed a 4)% decrease in symptoms or decreased score of 30 to 18. She showed a decreased in all categories including depression and connectivity with other. Overall progress noted and pt continues to make strides in her ability to manage emotions in the moment. Pt to continue current treatment goals and is to remain in IOP tx to increase skill appication consistency, improve use of healthy boundaries, and prevent decompensation. Refer to treatment plan review for more information. Time Stopped:: 13:04
--- NOTE | 2019-03-17 16:58 | BH.MTP_ITS ---
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 This is evidenced by pt report of decreased sx for derpession, fewer PTSD related sx of intrusive thoughts and memories, as well as increased ability to implement coping skills learned. Since admission to IOP program, pt has actively listened and taken notes throughout group sessions, though continues to remain a mostly passive participant. She is working on improving in this area and with prompt can provide positive contributions. Client has done well to remain engage in individual sessions, completing homework assigned as well as additional CBT related activities without prompt. Pt has missed one session due to difficulties securing daycare for her children, she otherwise remains consistent with attendance and regularly comes to group early to draw or journal. At start of treatment, pt indicated difficulties in engaging and connecting lack of experience in identifying, discussing, and understanding her own mental health symptomology as pt has not previously engaged in mental health treatment or counseling. Pt additionally expressed that low self-esteem and guilt also hindered treatment engagement. As pt has grown more accustom to treatment environment, she reports improved insight into her own mental health and increased ability to understand and discuss components of mental health with group as well as her supports, displaying significant progress. At admission, client reported symptoms of depression, guilt, anger, self-deprecation, and isolation that interfered with her daily functioning and ability to meet parental responsibilities on her own. At review client reported reduced depression, increased connectivity with supports, improved self-confidence, and reduced isolation. This is further supported by reduction of DSM cross-cutting scores for depression and somatic sx, and identity. Pt scores for depression reduced from 4/8 at admission to 1/8 at time of review. Intrusive thoughts and compulsions have reduced from 3/8 at intake to 1/8 at review, and lack of connection with others has reduced from 5/8 at admission to a 2/8 at review. Status of Current Problems and Symptoms: Client recently experienced an exacerbation of physiological symptoms and insomnia due to self-report of an epileptic seizure in which pt injured her back. Client also reports belief her symptoms are not related to mental health and has sought medical attention to a ddress physical symptoms and concerns. Additionally, client continues to struggle with intrusive thoughts and self-deprecation around anniversary dates of past trauma. Noting struggling approximately two weeks ago with anger, guilt, and shame around time of her estranged father?s birthday. She reports self-blame about lack of contact with her biological family, despite being able to identify various distortions associated with these thoughts. At times, pt continues to struggle with using effective communication skills when upset or feeling overwhelmed which has caused tension between pt and supports. Pt has been making strides in improving in this area and focusing on what is within her control. Problem #1 Problem Name:: Pt. will decrease depression, isolation, and rumination impacting self-savana Status of Goals:: Objective-1 complete. Client has learned and can identify 2-3 healthy skills that promote socialization and decrease sx of depression. Pt is able to recognize to impact of previous means of coping on maintaining depression and negatively impacting self-esteem. She is more actively replacing isolation behaviors with spending time with her children outdoors, visiting a friend across the street, and talking with her supports. Pt additionally reports positive affirmations, journaling, and drawing to improve self-confidence and reduce depression. Progress is reflected in DSM scores for depression which have reduced from 4/8 to 1/8. Objective 2- partially complete. Client can identify what cognitive distortions are however displays some difficulties in identifying her own common distorted thought patterns and mistaken beliefs that impact depression. Pt able to identify what thoughts associated with PTSD symptoms impact her mental health, however, struggles in challenging and replacing these thoughts. When noticing distortions not related to trauma triggers, pt reports increased ability to challenge and reframe her thoughts. Client can continue to work on this goal, though, as she continues to struggle with reframing deep- rooted core beliefs. Team Recommendations:: Client encouraged to continue working on this treatment goal to reinforce healthy coping skills and continue to further decrease symptoms of rumination and isolation impacting depression. Client and therapist currently working on creating a coping plan for identified trauma triggers. Client will be connected to outpatient providers for continuity of care. Problem #2 Problem Name:: Pt. will increase emotion regulation and management of PTSD related sx whic Status of Goals:: Objective 1-partially complete. Client reports using self- talk, deep breathing, and drawing to manage her PTSD symptoms causing anxiety. However, despite Client reports of applying healthy calming skills during these times, she continues to struggle with consistent application and use of skills when recognizing initial warning signs. Pt has reported a reduction in anxiety sx however DSM cross-cutting scores in this area remain the same as at admission and Pt is recommended continued focus on this goal in order to increase ability to identify common triggers and warning signs and actively use that information to apply calming and preventative skills in order to reduce overall trigger impact on mental health. Objective 2-partially complete. Client reports reduced rumination and improved ability to challenge negative or distorted thoughts causing anxiety. She struggles with consistency in this areas as well as in being able to challenge distortions when emotionally dysregulated. Would benefit from continued focus in this area to improve emotion regulation skills to better promote cognitive restructuring. Team Recommendations:: Client encouraged to continue working on this treatment goal to reinforce healthy coping skills to anxiety and isolation. Client and therapist currently working on reinforcing calming coping skills, distress tolerance, and boundary setting.
--- NOTE | 2019-03-22 09:00 | BH.SGPN.GN ---
Behaviors/Verbalizations/Mental Status: [] Eye contact is good. Motor activity is appropriate. Appearance is casual. Speech is Appropriate. Mood is euthymic. Affect is full. Thoughts are linear and logical. No evidence of psychosis. Reviewed daily check in sheet and no reports of suicidal ideations or intent. Client Response/Progress/Benefit: [] Participated at times during group discussion. Daily symptom tracker notes no concerns with panic, anxiety, agitation, or hopelessness. Keeping active with creative projects and self-care. Notes feeling motivated and stable which has impacted her MH and her relationships with others. Improved quality of life at home. Utilizing mobile MH apps which had been helpful as daily reminder to use skills and practice positive affirmations and thought-challenging. Progress noted per pt report. Benefited from group support and encouragement. Will continue in IOP to prevent decompensation and maintain gains. Narrative Note: []
--- NOTE | 2019-03-22 10:16 | BH.SGPN.GN ---
Behaviors/Verbalizations/Mental Status: []Client alert and oriented, casually dressed and groomed. Eye contact good. Motor activity appropriate. Speech within normal limits. Affect constricted, mood anxious. Thoughts linear, logical, no signs of hallucinations or delusions. Client Response/Progress/Benefit: []Pt provided input at times during discussion, engaged in group activity and listened attentively to peers. Pt did well to remain attentive as fellow participants discussed connections between activity and barriers/supports to development of a resilient lifestyle. Pt benefitted from brainstorming benefits of being resilient which included: stronger than before, improving ability to cope, builds confidence and self-esteem, and sense of accomplishment. Pt reported when she is resilient it makes her feeling more confident in herself that she was able to overcome a difficult situation. Pt progressing with continued application of skills outside treatment environment and reporting improved mood. Recommend continued IOP tx to prevent decompensation, maintain progress, as well as continue to use healthy coping skills to manage mental health symptoms. Narrative Note: []
--- NOTE | 2019-03-22 11:17 | BH.SGPN.GN ---
Behaviors/Verbalizations/Mental Status: [Eye contact fair to good. Motor activity is appropriate. Appearance is casual and pt grooming continues to appear fair. Speech an appropriate rate and soft tone. Mood is euthymic. Affect is congruent with mood. Thoughts are linear and logical. No evidence of psychosis.] Client Response/Progress/Benefit: [Pt did well to remain engaged throughout session and appeared to provide more input to discussion than usual baseline. She was receptive of feedback from peers, asked questions on occasion when needing clarification, and took notes throughout discussion. Pt providing insight on the various factors for building resilience and did well to work within the small group setting to further discuss each factor and it?s individual impact on mental health resilience. Pt noted that by working to accept that change is a part of living, ?we are more likely to be able to forgive ourselves and move past our past?. She benefitted from reviewing strategies for developing and promoting a resilient lifestyle. Pt identified that focusing on improving her use of the resilience factor of ?self-awareness? would aide in further developing her own resilience. Expressed plans to begin daily check-in's in order to recognize warning signs and potential strategies to maintain or improve mood. Pt progress noted in increased levels of insight an ability to openly talk about mental health. Recommended continued IOP tx to prevent decompensation, continue to promote healthy change behaviors, as well as continue to improve pt use of social supports to reduce isolative behaviors. ] Narrative Note: []
--- NOTE | 2019-03-23 09:05 | BH.SGPN.GN ---
Behaviors/Verbalizations/Mental Status: [] Eye contact is good. Motor activity is appropriate. Appearance is casual. Speech is Appropriate. Mood is anxious. Affect is congruent. Thoughts are linear and logical. No evidence of psychosis. Reviewed daily check in sheet and no reports of suicidal ideations or intent. Client Response/Progress/Benefit: [] Pt participated at times during the group discussion. Emotions for today is anxious and irritable. States I'm here. Shared with the group some recent stressors and events which are causing the increase in anxiety and irritability. Group provided feedback and support which was beneficial. Awareness that stress will happen. She is utilizing some skills as she has started to knit a blanket for her twins. Some regression noted. Will continue in IOP to maintain gains and prevent decompensation. Narrative Note: []
--- NOTE | 2019-03-23 10:11 | BH.SGPN.GN ---
Behaviors/Verbalizations/Mental Status: [Eye contact is good. Motor activity appropriate. Appearance is causal, grooming fair. Speech is appropriate rate and tone. Mood is euthymic, positive. Affect is congruent to mood. Thoughts are linear and logical. No evidence of psychosis. ] Client Response/Progress/Benefit: [Pt was an active participant in group activity and discussion. She actively listened as others shared insight on quote of the day and did well to challenge herself to engage in discussion as well. Pt indicated that the quote represents ?slowly moving forward to what you want to accomplish?. Pt worked together with group to define goals and identify the purpose of developing goals. Pt expressed connecting with the idea that goals can help to increase self-confidence and sense of accomplishment. She did well to remain engaged throughout and additionally worked with group to identify barriers to setting and accomplishing goals. Again connected with participants input regarding barriers, such as negative self-talk and lack of motivation. Pt benefited from increase awareness of goal-setting methods and education on developing SMART goals. Progress noted in pt ability to engage in group and active use of small goal setting within her own mental health tx progress. Recommended to continue in IOP tx to prevent decompensation, improve consistency of use of coping skills, and continue to develop healthy boundaries.] Narrative Note: []
--- NOTE | 2019-03-23 11:15 | BH.SGPN.GN ---
Behaviors/Verbalizations/Mental Status: []Eye contact is good. Motor activity is appropriate. Appearance is casual. Grooming fair. Speech is Appropriate. Mood is euthymic. Affect is congruent. Thoughts are linear and logical. No evidence of psychosis. Client Response/Progress/Benefit: []Pt attentive throughout, contributed input to discussion. Engaged in creating own mental health SMART goal and seemed to benefit from developing ways to overcome potential barriers to reaching this goal. Pt identified her SMART goal is to continue drawing/writing for one hour per day. Pt stated this goal will benefit her mental health by decreasing negative thinking and engaging in activity that improves mood. Pt identified potential barriers to reaching goal to include: having no time and no motivation. Pt able to identify several solutions for each potential barrier. Pt reported she will overcome potential barriers by reevaluating a better time to complete the goal and reminding herself of the importance of completing the goal. Progress noted with pt utilizing skills outside treatment environment and reporting improved mood. Pt to continue IOP to maintain progress, continue to identify and challenge distorted thoughts, and prevent decompensation. Narrative Note: []
--- NOTE | 2019-03-23 14:54 | BH.MDN_ITS ---
Multi-Disciplinary Note - Note 30-min Individual Time Started:: 08:37 Date: 03/23/19 Purpose of session/treatment goals addressed:: The purpose of this session was to assess current symptoms, stressors, and treatment goal progress. Another goal was to introduce decisional balance approach to making difficult decisions and aid pt in utilizing this technique to weigh pros/cons of a decision she is struggling with. Eye Contact:: Good Motor Activity:: Appropriate Appearance:: Casual, Other - grooming fair Speech:: Appropriate Mood:: Euthymic, Dysthymic - became dysthymic in discussing estranged family Affect:: Congruent Thoughts:: Linear, Logical, No evidence of hallucinations/delusions noted Staff Interventions:: Therapist asked open-ended questions to explore client's current stressors, symptoms, and pt perception of treatment progress. Therapist used empathic responses and strengths based approached to validate pt emotions and empower her to confidently make a decision regarding a current stressor. Provided psychoeducation on decisional-balance approach to making difficult decisions and reducing ambivalence. Aided pt in applying the decisional balance exercise to an identified stressor. Client Response:: Client continues to be receptive of treatment environment and is doing well to more consistently engage in both individual and group sessions. She reports an increase in overall self-confidence and improved mood, which pt attributes to actively applying skills learned. She shared that reminding herself of her motivation to set a healthy example for her twins and their older sister has been most effective in maintaining motivation to get outside rather than isolating in her room, continue to utilize her self-soothing tools, and practice positive self-talk. Pt reports beliefs she has made notable progress since beginning IOP tx and is confident that if she continues to reach out to others for support, as well as challenge thought distortions when they arise, she will be able to sustain gains made. Therapist inquired as to how pt has been doing with managing triggers that bring up past trauma memories as this has been an area of concern for her. She went on to indicate that she does well to distract herself from the thoughts when they arise rather than fixate on them and is able to use reframing and affirmations such as reminding herself ?I?m not that person anymore?. Discussed that the hardest thing for her to cope with is when she sees photos of her estranged family members. She became tearful and noted feelings of overwhelming sadness, guilt and remorse for the lack of contac t between herself and her immediate family. Pt expressed ?they don?t even know that I have the twins? and ?my kids need their family in their life?, further indicating a desire to mend the relationship and re-establish contact. Therapist and pt processed further and discussed why pt has not reached out or attempted to make amends with her family members in the past. Pt shared attempting to almost 2 years ago without success and shared fears of rejection and not knowing what to say. She responded well to weighing potential costs and benefits to reaching out via decisional balance. Pt displaying increased insight regarding all potential outcomes and the impacts they may have on her mental health progress. Noted that despite being afraid, she feels she would like to move forward with attempting to reconnect. Further discussed how pt knows she is ready to take that step and what she would be able to do if rejected. Pt expressed readiness to cope with rejection though struggled to identify specific skills she may use if that were to occur. Open to writing a mock letter to her parents to begin thinking about what she would say and why, as well as identify concrete coping mechanisms she may use should the attempt be unsuccessful. Agreeable to wait to make contact until able to follow-up with therapist and further discuss a healthy coping plan. Risks/Concerns:: No risks or concerns noted. Denies SI, plan, intent as of 03/23/19 Progress Toward Goals/Plan:: Progress noted. Pt reports decreased depression and increased self-esteem, self reports improved relationship with fiance and his family, and is more actively applying healthy skills for thought challenging and emotion regulation. Pt able to more easily recognize potential triggers and able to discuss these rather than minimize or shut down. Given pt progress in IOP tx she is to discharge next week following completion of aftercare planning.
--- NOTE | 2019-03-24 09:05 | BH.SGPN.GN ---
Behaviors/Verbalizations/Mental Status: [] Eye contact is good. Motor activity is appropriate. Appearance is casual. Speech is Appropriate. Mood is euthymic. Affect is flat. Thoughts are linear and logical. No evidence of psychosis. Reviewed daily check in sheet and no reports of suicidal ideations or intent. Client Response/Progress/Benefit: [] Pt spoke when prompted. Attentive. Shared that a big win for her today was that I got out of bed and got here even thought I didn't want too. Notes that she knows that coming to IOP helps her mood and provides motivation for the rest of the day which she knows is important. Feeling positive today. Check-in is short and mostly superficial which is baseline. Is utilizing skills learned in IOP on consistent basis. Progress noted. Benefited from group support, encouragement, and feedback. Will continue in IOP to maintain gains and prevent decompensation. Narrative Note: []
--- NOTE | 2019-03-24 10:11 | BH.SGPN.GN ---
Behaviors/Verbalizations/Mental Status: []Eye contact is fair. Motor activity is appropriate. Appearance is causal. Grooming fair. Speech is Appropriate. Mood is dysthymic. Affect is constricted. Thoughts are linear and logical. No evidence of psychosis. Client Response/Progress/Benefit: []Pt responded well to session AEB pt listening attentively to others and contributing to discussion at times. Pt connected with peers during discussion about common unhealthy skills that are often used to manage stressors and mental health. Pt stated music is a common coping skill that she will utilize to help improve her mood. Pt reported there are times music can become unhealthy because some songs can increase negativity and encourage unhealthy coping. Pt seemed to benefit from increased awareness of benefits of using healthy coping skills and understanding importance of having balance between internal and external coping skills. Pt to continue IOP level of care to maintain gains, continue use of healthy coping skills, and prevent decompensation. Narrative Note: []
--- NOTE | 2019-03-24 11:14 | BH.SGPN.GN ---
Behaviors/Verbalizations/Mental Status: [Client alert and oriented, casually dressed, grooming fair. Eye contact good. Motor activity appropriate. Speech within normal limits. Affect congruent, mood euthymic. Thoughts linear, logical, no signs of hallucinations or delusions.] Client Response/Progress/Benefit: [Client responded well to session, passive participant in discussion thought actively engaged AEB taking notes and nodding throughout. Client appeared to connect with the activity from second group and helped the group identify benefits of having a strong foundation of internal and external coping skills. Reported that being able to laugh with the group and take a more light hearted approach allowed her to keep from giving up when frustrated. Client actively listened as the group discussed the different categories of coping skills and provided examples. Client reported she has done well to master distraction skills, however struggles with identifying skills to utilize in the various other categories. She created a coping skills ?menu? from the five categories of coping skills. Client indicated that she would like to increase the coping skills she has for self-love and identified spending more time listening to self-esteem building podcasts and journaling afterward as a means of doing so. Client appeared to benefit from increasing her repertoire of healthy coping skills. Progress noted in client?s ability to identify a coping skill to utilize outside of distraction. Will continue IOP to promote gains, improve healthy boundary setting, and maintain mood stability.] Narrative Note: []
== END 2019-03-25 23:59 ==
LOC: BHIOP 09:00
PROVIDERS: Referring Provider Psychiatry & Neurology Psychiatry; Visit Provider Psychiatry & Neurology Psychiatry
DX: F33.2 Major depressive disorder, recurrent severe without psychotic features (principal); F41.1 Generalized anxiety disorder; F43.10 Post-traumatic stress disorder, unspecified
CPT/HCPCS: H0035; H2020; 90832; 90834

== ENCOUNTER 2019-02-28 21:37 | Emergency (ER) | payer MEDICAID, SELFPAY ==
[2019-02-28 21:38] VITALS: BP 119/73; BP 120/76; PULSE 100; PULSE 126; RESP 16; TEMP 36.7; O2SAT 95; O2SAT 97; BMI 29.8
--- NOTE | 2019-02-28 22:35 | EKG12_ITS ---
Test Reason : CP Blood Pressure : / mmHG Vent. Rate : 114 BPM Atrial Rate : 114 BPM P-R Int : 120 ms QRS Dur : 086 ms QT Int : 316 ms P-R-T Axes : 047 081 018 degrees QTc Int : 435 ms Sinus tachycardia Otherwise normal ECG Confirmed by IRMA ALDRIDGE ([id number]), film editor HOSEA GOLD ([id number]) on 03/01/2019 2:30:21 PM Referred By: Promise Puente Confirmed By:IRMA ALDRIDGE
--- NOTE | 2019-02-28 22:35 | ED.VISSUMM ---
- ER Visit Summary Date of Service: 02/28/19 Chief Complaint: Chest pain and sore throat History of Present Illness: The patient is a 28 F who presents with chest pain and sore throat that began this morning. Patient states the pain is been constant throughout the day today. Patient describes the pain as sharp. Patient states that the pain is worse with swallowing. Patient denies any fevers or chills. Patient does admit to some shortness of breath. Patient denies any nausea vomiting. Patient denies any diaphoresis. Patient denies any other symptoms. Physical Examination: Vital signs are stable. Patient is afebrile. Patient is in no acute distress. Tympanic membranes are clear bilaterally. Oral mucosa is pink and moist. Neck is supple. Trachea is midline. There is no JVD noted. Oropharynx is erythematous. There is no exudate noted. Neck is supple. Trachea is midline. There is some mild anterior cervical lymphadenopathy noted. Heart was regular rate and rhythm. Lungs are clear and equal bilateral. Abdomen is soft and nontender. Cranial nerves II through XII are intact. There are no focal motor or sensory deficits noted. Test Results: EKG showed a sinus tachycardia with a rate of 114. There are no acute ST or T wave changes. CBC showed a slight leukocytosis of 13.5. Basic metabolic profile was normal. Troponin was normal. PA and lateral chest x-ray was obtained and was normal. Emergency Department Course and Treatment: Patient was given her first dose of Pen-Vee K here. Patient was given a prescription for Pen-Vee K. Patient was instructed to follow-up with her primary care physician in 5 to 7 days. Patient and her understood and were agreeable with the plan. All questions were answered. Disposition: Discharge home Impression: Strep pharyngitis This note was generated with [employer] dictation software. It may contain incorrect words, spelling, and punctuation that were not noted in review of the chart prior to signing ED Disposition - Plan for ED Patient: Disposition: Home or Assisted Living Diagnosis: Strep pharyngitis Instructions: Strep Throat Prescriptions: Penicillin V Potassium 500 mg PO 4X/DAY #40 tab Transmission Status: Pending to [facility] Referrals: Care Physician,No Primary [Primary Care Provider] - Adalberto Garcia MD [STAFF PHYSICIAN] -
--- NOTE | 2019-02-28 22:51 | RAD_ITS ---
STUDY: X-RAY CHEST REASON FOR EXAM: Female, 28 years old. Chest pain. TECHNIQUE: PA and lateral views of the chest. COMPARISON: December 03, 2018. FINDINGS: The lungs are clear and expanded. There is no demonstrated pleural abnormality. Normal size heart. Normal mediastinum and karma. Normal visualized pulmonary arteries. Normal visualized aortic arch and descending thoracic aorta. Normal visualized thoracic spine. Normal visualized ribs, clavicles, and shoulders. There is no demonstrated abnormality of the visualized soft tissue structures of the upper abdomen. RAD/Chest PA and Lateral IMPRESSION: Normal x-ray examination of the chest. There is no major interval change. Electronically Signed: Noah Burnette DO at 23:05 EDT Tel [phone], Service support ,
[2019-02-28 22:54] LABS: Absolute Lymphocyte Count 1.73 X10^3/uL (0.83-4.51); Absolute Neutrophil Count 10.3 X10^3/uL (2.0-7.7); Basophil# 0.05 X10^3/uL; Basophil% 0.4 % (0-1); Eosinophil# 0.13 X10^3/uL; Hematocrit 37.2 % (37-47); Hemoglobin 12.7 g/dL (12.0-15.0); Lymphocyte # 1.73 X10^3/ul (4.0); Lymphocyte % 12.9 % (19-41); Mean Corp Hgb Conc 34.1 g/dL (32-36); Mean Corpuscular Hgb 30.5 pg (27.0-32.0); Mean Corpuscular Volume 89.4 fL (81-99); Mean Platelet Vol. 9.7 fl (6.2-12.0); Monocyte# 1.18 X10^3/uL; Monocyte% 8.8 % (0-10); NRBC Flagged by Analyzer 0 % (0-5); Neutrophil # 10.31 X10^3/uL (2.7-7.7); Neutrophil % 76.5 % (47-70); Platelet Count 238 K/mm3 (150-450); RBC Distribution Width CV 13.2 % (11.6-14.6); RBC Distribution Width SD 43.8 fl (35.1-43.9); Red Blood Count 4.16 M/mm3 (4.2-5.4); White Blood Count 13.5 K/mm3 (4.4-11.0)
--- NOTE | 2019-02-28 23:09 | ED.RN ---
PT POSITIVE FOR STREP. DR. SONG INFORMED.
[2019-02-28 23:10] LABS: Anion Gap 7 (5-15); BUN 6 mg/dL (7-18); BUN/Creat Ratio 8.8 RATIO (10-20); Calcium,Total 8.9 mg/dL (8.5-10.1); Chloride 109 mmol/L (98-107); Creatinine, Serum 0.68 mg/dL (0.55-1.02); EST Glomerular Filtration Rate 109 mL/min (>60); Est Glom Filt Rate - Afr Amer 132 mL/min (>60); Estimated Creatinine Clearance 128.72 ml/min; Glucose 100 mg/dL (74-106); Potassium 3.4 mmol/L (3.5-5.1); Sodium Level 140 mmol/L (136-145)
[2019-02-28 23:41] VITALS: BP 123/69; PULSE 94; RESP 16; O2SAT 97
[2019-02-28] MEDS: Penicillin Vk 250 MG Tablet 500 MG PO (23:42)
== END 2019-02-28 23:47 | disposition home or self-care (01) ==
PROVIDERS: Emergency Provider Emergency Medicine
DX: J02.0 Streptococcal pharyngitis (principal); R07.9 Chest pain, unspecified; G40.909 Epilepsy, unspecified, not intractable, without status epilepticus; Z79.899 Other long term (current) drug therapy; Z72.0 Tobacco use
CPT/HCPCS: 71046; 80048; 84484; 85025; 87880; 93005; 99285; A4216

== ENCOUNTER 2019-03-08 12:23 | Emergency (ER) | payer MEDICAID, SELFPAY ==
[2019-03-08 12:25] VITALS: BP 142/94; PULSE 120; RESP 18; TEMP 36.2; O2SAT 99; BMI 26.6
--- NOTE | 2019-03-08 12:57 | ED.DCSUM_ITS ---
- ER Visit Summary Date of Service: 03/08/19 Chief Complaint: Low back pain post fall after seizure History of Present Illness: The patient is a 28 F and depression. She is on multiple seizure medications. They were on the bathroom she had a seizure. Fell on the floor. After that gradually developed low back pain. She denies any bowel or bladder incontinence. No fever. No dysuria. She normally does not have back problems and has never had back surgery. She denies any numbness or weakness to her upper or lower extremities. No neck pain. Physical Examination: Young female no acute distress. Vital signs are stable. She is afebrile. HEENT exam atraumatic nontender. Pupils round reactive light. No facial scalp trauma. C-spine nontender normal range of motion. Lungs clear to auscultation bilaterally. Heart regular rhythm no murmur. Chest nontender. Abdomen soft nontender. Remedies patient is moving all 4 extremities. Neurovascular intact. She can stand without any difficulty and raise up on her toes on difficulty. Back she has mild tenderness to the lumbar spine area. There is no ecchymosis or bruising. Neurologically she is awake alert with no focal motor deficits. Test Results: LS spine x-rays shows no acute fracture. There is mild joint space narrowing at L3-4 and L4-L5. Read both by myself and radiologist. Emergency Department Course and Treatment: Patient has unremarkable exam except for mild LS spine tenderness. X-ray will be obtained. Treatment Plan: Repeat exam no change. Ice to the back. Motrin and tylenol for pain. Follow-up if not improving. Disposition: Discharge Impression: Lumbar contusion status post fall after seizure History of seizure disorder This note was generated with [employer] dictation software. It may contain incorrect words, spelling, and punctuation that were not noted in review of the chart prior to signing ED Disposition - Plan for ED Patient: Referrals: Care Physician,No Primary [Primary Care Provider] -
--- NOTE | 2019-03-08 13:00 | RAD_ITS ---
STUDY: X-RAY - LUMBAR SPINE REASON FOR EXAM: Female, 28 years old. Low back pain. TECHNIQUE: 3 view(s) of the lumbar spine were obtained. COMPARISON: None FINDINGS: Normal lumbar lordosis. There is no substantial scoliosis. There is a normal alignment of the vertebrae. Normal vertebral bodies and endplates. Mild degree of disc space narrowing at the L4-L5 and L3-L4 levels. An IUD is seen within the uterus. RAD/Lumbar Spine 2 or 3 Views IMPRESSION: Mild degree of disc space narrowing at the L3-L4 and L4-L5 levels. An IUD is seen within the pelvis. Electronically Signed: Jaime Tabor, at 13:28 EDT , Service support ,
--- NOTE | 2019-03-08 16:51 | ED.DEP ---
ED Disposition - Plan for ED Patient: Disposition: Home or Assisted Living Instructions: CONTUSION, Back Referrals: Trevor Eason MD [NON-STAFF] - 1 Week if not improving Additional Instructions: Ice to your back. Tylenol and Motrin for pain. Follow-up if not improving.
[2019-03-08 17:00] VITALS: BP 127/82; PULSE 97; RESP 18; O2SAT 98
== END 2019-03-08 17:01 | disposition home or self-care (01) ==
PROVIDERS: Emergency Provider Emergency Medicine
DX: S30.0XXA Contusion of lower back and pelvis, initial encounter (principal); X58.XXXA Exposure to other specified factors, initial encounter; Y93.89 Activity, other specified; G40.909 Epilepsy, unspecified, not intractable, without status epilepticus; F32.9 Major depressive disorder, single episode, unspecified; Z79.899 Other long term (current) drug therapy; Z72.0 Tobacco use
CPT/HCPCS: 72100; 99282

== ENCOUNTER 2019-03-29 09:00 | Outpatient (RCR) | payer MEDICAID, SELFPAY ==
[2019-03-26 01:02] VITALS: BP 112/70; PULSE 104; RESP 14
--- NOTE | 2019-03-29 09:00 | BH.SGPN.GN ---
Behaviors/Verbalizations/Mental Status: [] Eye contact is good. Motor activity is appropriate. Appearance is casual. Speech is Appropriate. Mood is euthymic. Affect is appropriate. Thoughts are linear and logical. No evidence of psychosis. Reviewed daily check in sheet and no reports of suicidal ideations or intent. Client Response/Progress/Benefit: [] Pt participated at times during group discussion on topic of what is normal? and expectations about our mental health. Attentive. Emotion for today is content. Shared with the group that she continues to utilize skills and self-care which helps with her mood. Setting daily small SMART goals which has also helped with motivation. Recently completed a blanket for her child which she is proud of. Benefited from group support, encouragement, and discusssion. Will continue in IOP to maintain gains. Plan to discharge next session. Narrative Note: []
--- NOTE | 2019-03-29 10:21 | BH.SGPN.GN ---
Behaviors/Verbalizations/Mental Status: [Client alert and oriented, casual dress and appropriately groomed. Eye contact good. Motor activity appropriate. Speech within normal limits. Affect flat,constricted. mood dysthymic. Thoughts linear, logical, no signs of hallucinations or delusions. ] Client Response/Progress/Benefit: [Client receptive of session, actively listening and taking notes during discussion, though continues to struggle with providing input throughout discussion. Client appeared to connect with the topic of cognitive distortions AEB nodding throughout and expressing agreement as others shared their own experiences with impact distortions have had on mental health and personal relationships. Client maintaining good eye contact throughout discussion and did well to take notes as group worked on defining the various types of cognitive distortions and ways they have impacted mental health in the past. Client reported connecting with distortion of personalization, though expressed not wanting to share further. Appeared to benefit from increasing awareness of cognitive distortions and how they can impact emotions and behaviors. Client continues to struggle in actively applying materials other than distraction outside of tx environment which may impact ability to maintain gains following expected discharge from IOP tx at the end of this week. Client to continue IOP tx until 03/31 to continue to promote application of emotion regulation skills and self-care, as well as prevent decompensation while finalizing aftercare.] Narrative Note: []
--- NOTE | 2019-03-29 11:43 | PCM.BH.PN_ITS ---
Progress Note Progress Note: History of Present Illness/Interim History: Patient is seen in follow-up for her [facility] IOP program. She was last seen by me about 1 month ago. Patient states that her symptoms of depression and anxiety have improved greatly over the past 4 weeks. Her mood is not depressed now. She feels her mood is much improved; she feels more motivated and is getting a lot more done at home and here in the program. Her living situation is less stressful right now also because she says everyone is communicating better now than they were before. She attributes some of this to the skills she has learned in the IOP program. Her trauma symptoms are also much less intrusive now. She says she is able to ignore them and they are not bothering her now. She had her last seizure about 3 days ago but it was mild only. This is baseline for her seizure disorder. He denies suicidal ideation, hallucinations or delusions, thoughts of self-harm. Her energy level has improved and her concentration is better. She is enjoying being with her children now. Her sleep has improved also. She has not yet gotten her TSH or vitamin D done and they are not in the laboratory results in the computer. She took the Lexapro for a few weeks but stopped it 1 to 2 weeks ago. She states that she feels better without being on any medication and does not want to go back on it. She did not have any side effects from it. She has not engaged or thought of doing any self-harm. [] Current Psychiatric Medications: [] No psych meds Review of Symptoms: [] Negative Mental Status Examination: [Patient is a 28-year-old female who appears normal for stated age. She is casually dressed and groomed with good hygiene. She has a piercing in her upper lip. She has normal gait and is cooperative during the interview. She has no psychomotor agitation or retardation. Mood is euthymic and affect is consistent with euthymia. Thought processes are organized and goal-directed. Thought content: No evidence of hallucinations or delusions, no evidence of suicidal or homicidal ideation. Reality testing is intact. Concentration is intact. Judgment is intact and insight is good. 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 She feels she has greatly benefited from the support, education, structure, individual and group therapy in the IOP program. She will continue to follow-up with outpatient medical and psychiatric providers as scheduled. She will remain off the Lexapro. She felt safe during this visit and agrees that if at any point she does not feel safe for her situation deteriorates she will call us or go to the emergency room. If she continues to progress she may be ready for discharge soon.
--- NOTE | 2019-03-30 09:00 | BH.SGPN.GN ---
Behaviors/Verbalizations/Mental Status: [] Eye contact is good. Motor activity is appropriate. Appearance is casual. Speech is Appropriate. Mood is euthymic. Affect is full. Thoughts are linear and logical. No evidence of psychosis. Reviewed daily check in sheet and no reports of suicidal ideations or intent. Client Response/Progress/Benefit: [] Pt participated at times during group discussion. Emotion for today is peachy. Increased activities at home. Discussed an william for her phone that she is utilizing which is helping her not compare myself to others. Discussed the impact that comparisons had on her mental health, current situation, and her goals for the future. This led to conversations about the impact of social media on mental health within the group. Progress noted. Will continue in IOP with plan to discharge this week. Narrative Note: []
--- NOTE | 2019-03-30 10:10 | BH.SGPN.GN ---
Behaviors/Verbalizations/Mental Status: []Client alert and oriented, casually dressed and groomed. Eye contact good. Motor activity appropriate. Speech within normal limits. Affect constricted, mood dysthymic. Thoughts linear, logical, no signs of hallucinations or delusions. Client Response/Progress/Benefit: []Client passive participant as shown by client?s contribution to discussion and helpful insight. Client agreed with peers that self-care is important because challenging to care for others if don't care for self. Client participated in the discussion of the common myths about self-care including self-care is selfish, self indulgent, pampering self, and always fun. Client gave examples of self-care activities such as taking medications, exercising and eating healthy. Client stated self-care is the hardest to do when you feel the worst. Client engaged in activity and able to connect how sometimes to make self-care a priority, a person must set boundaries in other areas of their lives. Client seemed to benefit from increased awareness of the importance of self-care. Client showing progress as shown by her report of utilization of coping skills and ability to challenge distorted thoughts. Will continue tx to maintain gains, continue to use healthy coping skills, and prevent decompensation. Narrative Note: []
--- NOTE | 2019-03-30 11:15 | BH.SGPN.GN ---
Behaviors/Verbalizations/Mental Status: [Client alert and oriented, casually dressed and fairly groomed. Eye contact fair to good. Motor activity appropriate. Speech within normal limits, limited input provided. Affect flat, mood dysthymic. Thoughts linear, logical, no signs of hallucinations or delusions. ] Client Response/Progress/Benefit: [Pt receptive of session, actively listening, provided some input to discussion and completed worksheet activity. Listened as the group further processed the activity and connected with the importance of self-care in maintaining mental health. Pt completed self-assessment activity on the different areas of self-care, noting she feels she is doing much better in areas of psychological and emotional self-care than prior to starting IOP program. Indicates increased confidence in her ability to use emotional self-care skills. Pt reports connecting with discussion on the mental health effects of not making self-care a priority. Pt set a goal to improve in the area of social self-care as she wants to prevent falling back into isolative behaviors. Pt?s goal is to spend more time reaching out to friends and family throughout the week. Pt appeared to benefit from increasing awareness of how she can improve her self-care balance. Pt progress noted in her reports of regularly using self-reflection and journaling. Recommended continued IOP to continue to maintain gains and promote ongoing skill application while completing discharge planning.] Narrative Note: []
--- NOTE | 2019-03-31 08:10 | BH.IGGP_ITS ---
Aftercare Plan - Demographics Treatment End Date:: 03/31/19 Psychiatrist:: [facility] Psychiatrist Office #:: [phone] [facility] Therapist:: Esther Esparza Therapist Phone #:: [phone] - Medications Home Medications: Home Medications levETIRAcetam tablet [Keppra tablet] 750 mg PO BID #60 tablet 11/06/18 Penicillin V Potassium 500 mg PO 4X/DAY #40 tab 02/28/19 - Plan Details Progress/Aftercare Plan Details:: Hedy has shown so much progress since beginning the [facility] program. She has come so far with her ability to better un derstand and learn to manage her mental health symptoms. Hedy reported difficulties in openly discussing mental health upon admission to [facility] and is now able to do so during individual sessions without problem. She additionally reports increased ability to share with her supports. Throughout the duration of the program, Hedy has completed all homework assignments and often gone out of her way to do more than what was asked. She is consistently applying healthy coping skills of positive self-talk, spending time outdoors with her children and supports, journaling, and self-soothing. She reports beginning to re-engage in activities she used to enjoy such as drawing and crocheting. Hedy has continued to place greater importance on improving her relationships with her fianc? and his parents by more actively communicating, as well as using emotion regulation skills in times of potential conflict. She reports some improvement in this area and is encouraged to continue to apply healthy communication, boundary setting, and conflict resolution skills to maintain progress made. Hedy reports less isolation and increased desire to engage in new social activities such as support groups or activities with her children. She reports actively combating negative thoughts and using self-help tools to continue to support her in this area. Hedy reports decreased symptoms of depression and anxiety which is evident in her increased positive energy and interaction with group members. She is encouraged to continue individual counseling. Great Work! Strategies for Success:: 1. Continue to practice daily check-ins with your supports and pay attention to warning signs and triggers. Ask yourself what do I need right now to cope? If you are experiencing negative thoughts, remember to use positive self-talk or look at the inspirational quotes you have. 2. Self- care and balance! Remember life is about balance! How are you doing in all areas of self-care? Are you making sure to spend time out of the house? With others? Are you taking care of your physical and mental health needs? 4. SUPPORT! Pay attention to isolation and continue to use the skills that have helped you not isolate. Remember you have your neighbor and friends who would be more than willing to spend time with you, you just have to reach out! DON?T HIDEOUT IN YOUR ROOM 5. PRACTIVE! PRACTICE! PRACTICE! If you continue to practice using what works, you will continue to have the support and your own safety net to fall back on. 6.Positive self-talk! Talk yourself through the moments you feel triggered or lonely. 7. Review your binder! 8. set small goals and keep track of wins! - Appointments Appointments/Referrals to Other Services:: 1. Follow up with individual counseling at either [facility] or [facility]. Phone numbers were provided. 2. [facility] for [facility] at the [facility] provided. 3. [facility] in [place] is always a great resource for social support.
--- NOTE | 2019-03-31 10:16 | BH.SGPN.GN ---
Behaviors/Verbalizations/Mental Status: [Client alert and oriented, casually dressed and fair grooming. Eye contact fair to good. Motor activity appropriate. Speech within normal limits. Affect constricted, mood dysthymic. Thoughts linear, logical, no signs of hallucinations or delusions] Client Response/Progress/Benefit: [Pt remained semi-engaged during discussion AEB providing some input though mostly actively listening, willing to complete worksheet activity. Pt connected with the group topic of Crisis and did well to work with group to define crisis. Pt identified relating to the various examples of potential crisis provided by the group, specifically those related to familial issues. Connected with discussion on how small setbacks can develop into a crisis if coping skills are unhealthy. Pt shared that her common crisis response is sleeping and avoiding which has prevented her from getting the support needed and increased depressive sx as a result. Group identified warning signs for crisis which included; increased sleep, irritability, decreased appetite, and suicidal thoughts. Pt completed the personal warning signs worksheet and identified crisis warning signs to include; overuse of distraction, negative thoughts, isolating. Benefited from group by increasing awareness of crisis and personal warning signs. Progress noted as pt able to make personal connections between past crisis response and decreased ability to manage mental health symptoms, reports improved ability prevent from isolating and is reaching out to supports instead. To discharge from [facility] given progress made, pt encouraged to follow-up with outpatient providers to continue to maintain gains and promote continued skill development.] Narrative Note: []
--- NOTE | 2019-03-31 11:15 | BH.SGPN.GN ---
Behaviors/Verbalizations/Mental Status: []]Client alert and oriented, casually dressed and groomed. Eye contact good. Motor activity appropriate. Speech within normal limits. Affect congruent, mood euthymic. Thoughts linear, logical, no signs of hallucinations or delusions. Client Response/Progress/Benefit: []Client responded well to session as evidenced by client listening attentively to others and sharing when prompted. Client identified her warning signs for crisis and gained further awareness of her earliest warning signs. Client recognized that awareness of these warning signs can prevent further crisis and help client utilize healthy coping skills to break the cycle. Client created a crisis action plan to help client better manage earliest warning signs for crisis of isolating/avoiding others, eating less than usual, and sleeping less than usual. Client?s plan included coping skills such as reaching out to supports via phone, starting small with adding healthy foods into daily diet, and listening to nature sounds to help fall asleep. Client appeared to benefit from creating a crisis action plan and increasing his self-awareness. Client has made significant treatment progress with decreased depressive symptoms, improved use of healthy coping, and improved daily functioning. Client is to discharge from [facility] today. Narrative Note: []
--- NOTE | 2019-03-31 15:15 | BH.MDN ---
Multi-Disciplinary Note - Note 45-min Individual Time Started:: 09:11 Date: 03/31/19 Purpose of session/treatment goals addressed:: The purpose of this session was to review client's treatment goal progress, discuss potential barriers, and identify strategies that will promote mood stability and gains made in IOP. Another goal was to review discharge recommendations and aftercare planning. Eye Contact:: Good Motor Activity:: Appropriate Appearance:: Casual Speech:: Appropriate Mood:: Euthymic Affect:: Congruent Thoughts:: Linear, Logical, No evidence of hallucinations/delusions noted Staff Interventions:: Therapist asked open-ended and furthering questions to elicit information regarding pt use of materials learned, as well as gauge pt perspective of progress while in IOP treatment. Administered DSM-5 cross cutting assessment and compared intake scores with current scores. Applied strength?s-based approaches to highlight pt gains promote continued change behaviors following discharge from IOP. Discussed potential warning signs and barriers as well as aided pt in identifying strategies for continued success. Reviewed aftercare plans and provided pt with resources for local support services. Client Response:: Pt responded well to session, actively engaged in discussion throughout. Indicated feeling she has made significant strides since starting IOP program and reviewed areas of personal growth. Pt elaborated on where she has seen most progress regarding her ability to identify and manage symptoms of depression. She noted that since challenging herself to get outside and reach out to more positive supports, she has noticed an increased in her overall energy and motivation levels. Pt identified increased desire to engage in activities she had previously enjoyed such as crocheting, cleaning around the house, and playing games rather than just watching movies with her children. With assistance, pt was able to identify warning signs for depression as increased isolation, shutting down, and negative self-talk. She did well to review healthy coping skills to use during times she notices warning signs or when experiencing a potential trigger. Identified her desire to set a good example for children as major motivating factor and reason to remain consistent in utilization of skills she has learned. Able to identify potential barriers to ongoing success which included: lack of motivation, not reaching out to supports, and dwelling on the past. Pt and therapist spent remainder of session discussing strategies to address each potential barrier and reviewed after care plan. Pt indicated wanting to see Jaiden Camejo for individual counseling, however pt insurance is not accepted by this provider. Pt agreeable to alternative options that accept caresource and are within walking distance. Provided resources for [facility], [facility], and [facility]. Pt reports plans to schedule an appointment this afternoon and will contact this therapist with appointment date and time 04/03/19. Risks/Concerns:: No risks or concerns noted. Denies active SI, plan, or intent as of this date 03/31/19 Progress Toward Goals/Plan:: Pt made progress while in IOP and reports decreased intensity, frequency, and duration of depressive symptoms. This is evidenced both by increased social behaviors, decreased negative self-talk, and reduction in DSM-5 cross cutting scores for depression. Reports no SI since admission to [facility]. Reports increased communication skills and increased socialization. Improved mood overall per pt and increased levels of self-confidence. Completed DSM cross-cutting scales and pt showed a 20 point reduction in symptoms in 6 weeks. Plan is discharge from IOP today. Pt was recommended to continue with individual counseling and was provided with outpatient options in prior session, however pt has yet to schedule an appointment. Willing to follow-up 04/03/19 to confirm establishment with outpatient provider. Given resources for [facility] should pt decide in the future that she would like to seek psychiatric services though is not currently prescribed any psychiatric medication. Provided with resources for [facility]. Time Stopped:: 09:56
--- NOTE | 2019-03-31 15:17 | BH.DS ---
Discharge Summary - Demographics Date of Admission:: 02/13/19 Discharge Date: 03/31/19 Presenting Problems at Admission:: Pt is a 28 y/o engaged female with a long hx of a siezure disorder, depression, anxiety, and PTSD associated with childhood trauma. Pt refered to IOP program by a neighbor due to increased sx of depression, anxiety, and PTSD related to unprocessed childhood trauma. Reports symptoms increased following the of her three month old twins, which was further exacerbated by hurtful comments made by her soon to be [id number]. Pt indicates no previous mental health counseling and expressed a desire to begin dealing with past trauma and stop avoiding people. At time of admission, pt reports difficulties in opening up to others about her mental health and emotions and would like to be able to better communicate these with others. At admission, she reported periods in which she break down crying and feel helpless, depression, isolation, anhedonia, low motivation, poor appetite, low self-esteem and self-depricating comments, intrusive trauma related memories, rumination, and anxiety about her siezures. Pt alert and orient x3. Denies active SI, plan, or intent. Last SI occurring prior to program admission. Hx of self-harm via cutting as a teenager, denies current self-injurious behaviors. Hx substance abuse, denies current use. No evidence of delusions/hallucinations noted, pt denies hx of either. 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 Given increased ability to manage symptoms of PTSD and pt reports of decreased depression, she no longer meets criteria for IOP level of care and is recommended to step down to an individual outpatient level of care at this time. - Treatment Progress During Treatment & Response: Hedy has shown progress since beginning the IOP program which is evidenced by observed and reported decrease in depressive symptoms, as well as increased confidence and ability to manage PTSD related symptoms. She has come so far with her ability to better understand and learn to manage her mental health symptoms. At admission, Hedy reported difficulties in openly discussing mental health sx, and is now able to do so during individual sessions without problem. She additionally reports increased ability to share with her supports which had been a major barrier to progress prior to IOP start. Throughout the duration of the program, Hedy completed all homework assignments and often went out of her way to do more than what was asked. She maintained regular with attendance and was often early for assigned days. During her admission, Hedy consistently worked on improving her ability to apply healthy coping skills of positive self-talk, spending time outdoors with her children and supports, journaling, and self-soothing. She reports beginning to re-engage in activities she used to enjoy such as drawing and crocheting. Hedy has continued to place greater importance on improving her relationships with her fianc? and his parents by more actively communicating and advocating for her needs, as well as using emotion regulation skills in times of potential conflict. She reports some improvement in this area and is encouraged to continue to apply effective communication skills, boundary setting, and conflict resolution skills to maintain progress made. Hedy reports less isolation and increased desire to engage in new social activities such as support groups or activities with her children. She reports actively combating negative thoughts and using self-help tools to continue to support her in this area. Hedy reports decreased symptoms of depression and anxiety which is evident in her increased positive energy and interaction with group members and decreased DSM-5 scores. At time of admission, Client scored 4/8 for depression and 5/8 in the area of personality functioning. This scores reduced significantly throughout admission and pt reports 0/8 in both areas at time of discharge. Issues Still to be Addressed:: Negative self-talk which reinforces low self-esteem, poor boundaries, difficulties with communicating with supports, and application of self-soothing skills for anxiety outside of distraction. Discharge Recommendations/Instructions:: 1. Follow up with individual counseling at either [facility] or [facility]. Phone numbers were provided. 2. Options for [facility]iatry at [facility] provided. 3. [employer] in [place] is always a great resource for social support. Discharge Handout: Complete Discharge Handout with client on aftercare options and continuity of care.
== END 2019-03-31 14:43 | disposition home or self-care (01) ==
LOC: BHIOP 09:00
PROVIDERS: Referring Provider Psychiatry & Neurology Psychiatry; Visit Provider Psychiatry & Neurology Psychiatry
DX: F33.2 Major depressive disorder, recurrent severe without psychotic features (principal); F41.1 Generalized anxiety disorder
CPT/HCPCS: 99214; H0035; H2012; H2020; 90834

== ENCOUNTER 2019-06-18 11:58 | Emergency (ER) | payer MEDICAID, SELFPAY ==
[2019-06-18 12:00] VITALS: BP 147/89; PULSE 127; RESP 16; TEMP 36.4; O2SAT 97; BMI 30.9
[2019-06-18 12:22] VITALS: BP 147/89; PULSE 127; RESP 16; TEMP 36.4; O2SAT 97
--- NOTE | 2019-06-18 12:38 | ED.VIS.GEN ---
History of Present Illness Chief Complaint: Rash Informant: Patient Onset: Weeks - 2.5 Context: Gradual Onset Timing: Continuous Narrative: Patient is a 28-year-old female with history of seizure disorder, not currently on any seizure medication, presenting with 2-1/2 weeks of rash. Patient states it is red and itchy. It is mostly in her hands and also on her neck and her extremities. She has a mild amount on her back. Patient thinks is from a soap that she started using. Patient states she is reacted to soaps and detergents in the past. She also notes she started using Tide about 2 weeks ago but has not used it for the past week. Patient denies any shortness of breath or difficulty breathing. She mentioned that she has had a cough and nasal congestion for the past month or so. She attributed to the weather change. States she gets it every year when the weather changes. She denies any fever or chills. She denies any bug bites. She denies any contacts with similar rash. She denies any recent travel. She denies any sores in her mouth, dysuria or pain with defecation. Past Medical History - Allergies and Home Meds Allergies/Adverse Reactions: Allergies lactose Adverse Reaction (Verified 06/18/19 12:00) Upset Stomach tomato Adverse Reaction (Verified 06/18/19 12:00) Vomiting Primary Care Physician: Foreign Macedo MD [NON-STAFF] - Past Medical History: - - Seizure disorder Surgical History: noncontributory Smoking Status: Current every day smoker Review of Systems General: Denies: Chills, Fever, Sweats Eyes: Denies: Visual changes - bilaterally, Diplopia ENT: Denies: Rhinorrhea, Sore throat Cardiovascular: Denies: Chest pain, Palpitations Respiratory: Denies: Dyspnea, Cough, Dyspnea on exertion Gastrointestinal: Denies: Abdominal pain, Nausea, Vomiting, Diarrhea, Melena, Hematochezia Genitourinary: Denies: Dysuria, Hematuria, Frequency Musculoskeletal: Denies: Back pain, Extremity Pain Skin: Reports: Rash - hands . Denies: Wounds Neurological: Denies: Headache, Weakness, Numbness Physical Exam Vital Signs/Narrative: Vital Signs Temp Pulse Resp BP Pulse Ox 06/18/19 12:22 97.6 F L 127 H 16 147/89 H 97 06/18/19 12:00 97.6 F L 127 H 16 147/89 H 97 Inital Vital Signs reviewed: Yes General: Well nourished, Well developed, No Acute Distress Head: Normocephalic, Atraumatic Eyes: Perrl, EOMI ENT: Moist mucous membranes, No rhinorrhea, - - No lesions of the mouth noted Neck: Supple, Nontender Cardiovascular: Regular rate, Regular rhythm, No murmurs Respiratory: No distress, CTA bilaterally, Chest nontender Abdomen: Soft, Nontender, Nondistended, Normal bowel sounds Back: Nontender, Normal Inspection Extremities: Nontender, No edema Skin: Rash, - - Scattered erythematous macular papular rash most pronounced on the hands and distal upper extremities but also present on the neck and lower back. No petechia present. Sparing of the palms of the hands. Is nontender to palpation. Nikolsky sign negative. No lesions or hemorrhages of the nails noted. Neurological: Alert, Oriented x3, Cranial nerves II-XII grossly intact, Normal Strength, Normal Sensation Psychological: Normal affect, Normal Mood Diagnostic/Tx/Re-eval - Medical Decision Making Patient is evaluated for 2 weeks of rash on her body most noticeably on her hands. She suspects it is from a reaction to the soap. Rash could be a contact dermatitis. It does not appear infectious. It is not petechial. She will be started on a course of steroids for it. She is counseled to change her soaps to dye free hypoallergenic soaps. She is counseled to rewash all of her linens with hypoallergenic detergent. Patient is not currently on any medications. Do not suspect Terrell-Jeremy syndrome. She is given first dose of steroids in the emergency room. It is itchy so she is instructed to also use hydrocortisone ointment as needed [id number]. Does not appear consistent with bug bites and her spouse has not had any similar rash. Patient is referred to PCP for outpatient follow-up. Patient is counseled on signs and symptoms requiring return to the emergency room. Patient verbalizes agreement and understand this plan. Patient discharged home in stable and improved condition. ED Disposition - Plan for ED Patient: Disposition: Home or Assisted Living Diagnosis: Contact dermatitis Instructions: ALLERGIC REACTION, Other (General) Prescriptions: Prednisone [Deltasone] 40 mg PO DAILY #8 tab Prescription Printed Referrals: Foreign Macedo MD [NON-STAFF] - Additional Instructions: Stop using any soaps or detergents that could be causing this reaction. Please follow-up with the primary care doctor you were referred to today. I do not suspect pneumonia based on your lung sounds and vital signs. Return to the emergency room with any worsening symptoms. You can use [id number] Benadryl cream/hydrocortisone cream as needed for itching.
[2019-06-18 12:49] VITALS: BP 132/73; PULSE 91; RESP 18; O2SAT 99
[2019-06-18] MEDS: predniSONE 20 MG Tablet 60 MG PO (12:49)
== END 2019-06-18 12:49 | disposition home or self-care (01) ==
PROVIDERS: Emergency Provider Emergency Medicine
DX: L25.9 Unspecified contact dermatitis, unspecified cause (principal); G40.909 Epilepsy, unspecified, not intractable, without status epilepticus; F17.200 Nicotine dependence, unspecified, uncomplicated
CPT/HCPCS: 99283

== ENCOUNTER 2019-07-20 19:17 | Emergency (ER) | payer MEDICAID, SELFPAY ==
[2019-07-20 19:19] VITALS: BP 143/77; PULSE 124; RESP 18; TEMP 36.7; O2SAT 96; BMI 31.1
--- NOTE | 2019-07-20 20:04 | ED.VIS.GEN ---
History of Present Illness Chief Complaint: General Illness Detail of Chief Complaint: Rash and poor appetite Narrative: Patient presents with a rash that is present present for the last 10 days. She states it is on her wrists and hands, neck, and lower back. It is itchy. She denies new exposures. She states her period started about that time and the rash seemed to worsen while she was on her period. Her menstrual cycle also lasted 11 days when she normally only bleeds for 3 or 4 days. She also reports having poor appetite and not really caring whether she eats. She does not have vomiting or diarrhea. She has not had fever. - Past Medical History (1) Seizure disorder Status: Chronic Past Medical History - Allergies and Home Meds Allergies/Adverse Reactions: Allergies lactose Adverse Reaction (Verified 07/20/19 19:21) Upset Stomach tomato Adverse Reaction (Verified 07/20/19 19:21) Vomiting Primary Care Physician: Care Physician,No Primary [Primary Care Provider] - Prior records reviewed: Yes Surgical History: noncontributory Lives: With Family Smoking Status: Current every day smoker Review of Systems General: Denies: Chills, Fever Eyes: Denies: Visual changes - bilaterally ENT: Denies: Bilateral ear pain Cardiovascular: Denies: Chest pain Respiratory: Denies: Dyspnea, Cough Gastrointestinal: Denies: Abdominal pain, Nausea, Vomiting, Diarrhea Musculoskeletal: Denies: Extremity Pain Skin: Reports: Rash Neurological: Denies: Headache Hematologic: Denies: Easy bruising Allergy: Denies: Uticaria Physical Exam Vital Signs/Narrative: Vital Signs Temp Pulse Resp BP Pulse Ox 07/20/19 19:19 98.0 F 124 H 18 143/77 H 96 Inital Vital Signs reviewed: Yes General: Well nourished, Well developed Head: Normocephalic ENT: Moist mucous membranes Neck: Supple Cardiovascular: Regular rate, Regular rhythm Respiratory: No distress, CTA bilaterally Abdomen: Soft, Nontender Skin: - - Erythematous, slightly raised rash around bilateral wrists and hands, anterior neck, and across the lower back. Some lesions are slightly scabbed. There is no sign of secondary infection. No vesicles are noted. No target lesions. Neurological: Alert, Oriented x3 Psychological: Normal affect Diagnostic/Tx/Re-eval Laboratory Results 07/20/19 07/20/19 07/20/19 20:10 20:10 20:10 WBC 10.0 RBC 4.63 Hgb 13.7 Hct 41.2 MCV 89.0 MCH 29.6 MCHC 33.3 RDW Std Deviation 43.8 RDW Coeff of Abiodun 13.4 Plt Count 309 MPV 9.7 Immature Gran % (Auto) 0.200 Neut % (Auto) 55.0 Lymph % (Auto) 33.9 [place] % (Auto) 6.7 Eos % (Auto) 3.5 Baso % (Auto) 0.7 Absolute Neuts (auto) 5.5 Absolute Lymphs (auto) 3.38 Nucleated RBC % 0 Sodium 139 Potassium 4.1 Chloride 108 H Carbon Dioxide 27.0 Anion Gap 4 L BUN 12 Creatinine 0.84 Estim Creat Clear Calc 104.20 Est GFR (MDRD) Af Amer 103 Est GFR (MDRD) Non-Af 85 BUN/Creatinine Ratio 14.2 Glucose 90 Calcium 9.5 Serum , Qual NEGATIVE - Medical Decision Making Patient was given Benadryl and prednisone here. On repeat evaluation she states the itching on her hands and wrists have improved. She will be given prescriptions for Benadryl and prednisone. She will be referred to next doc on no doc list for follow-up. ED Disposition - Plan for ED Patient: Disposition: Home or Assisted Living Diagnosis: Rash Instructions: DERMATITIS, Non-Specific Prescriptions: DiphenhydrAMINE [Benadryl] 50 mg PO TID PRN PRN #30 cap PRN Reason: Rash/Topical Irritation Transmission Status: Pending to [facility] Prednisone [Deltasone] 40 mg PO DAILY #10 tab Transmission Status: Pending to [facility] Referrals: Chaz Benito Jr. [HONORARY STAFF] - As Needed
[2019-07-20] MEDS: DiphenhydrAMINE 50 MG/ML Syringe 25 MG IV (20:18)
[2019-07-20] MEDS: predniSONE 20 MG Tablet 40 MG PO (20:18)
[2019-07-20 20:28] LABS: Absolute Lymphocyte Count 3.38 X10^3/uL (0.83-4.51); Absolute Neutrophil Count 5.5 X10^3/uL (2.0-7.7); Basophil# 0.07 X10^3/uL; Basophil% 0.7 % (0-1); Eosinophil# 0.35 X10^3/uL; Eosinophils% 3.5 % (0-5); Hematocrit 41.2 % (37-47); Hemoglobin 13.7 g/dL (12.0-15.0); Lymphocyte # 3.38 X10^3/ul (4.0); Lymphocyte % 33.9 % (19-41); Mean Corp Hgb Conc 33.3 g/dL (32-36); Mean Corpuscular Hgb 29.6 pg (27.0-32.0); Mean Platelet Vol. 9.7 fl (6.2-12.0); Monocyte# 0.67 X10^3/uL; Monocyte% 6.7 % (0-10); NRBC Flagged by Analyzer 0 % (0-5); Neutrophil # 5.48 X10^3/uL (2.7-7.7); Platelet Count 309 K/mm3 (150-450); RBC Distribution Width CV 13.4 % (11.6-14.6); RBC Distribution Width SD 43.8 fl (35.1-43.9); Red Blood Count 4.63 M/mm3 (4.2-5.4)
[2019-07-20 20:36] LABS: Internal QC Validated? YES +Cl - CLEAR BKGD; Pregnancy, Serum, hCG Quali. NEGATIVE Negative
[2019-07-20 20:46] LABS: Anion Gap 4 (5-15); BUN 12 mg/dL (7-18); BUN/Creat Ratio 14.2 RATIO (10-20); Calcium,Total 9.5 mg/dL (8.5-10.1); Chloride 108 mmol/L (98-107); Creatinine, Serum 0.84 mg/dL (0.55-1.02); EST Glomerular Filtration Rate 85 mL/min (>60); Est Glom Filt Rate - Afr Amer 103 mL/min (>60); Glucose 90 mg/dL (74-106); Potassium 4.1 mmol/L (3.5-5.1); Sodium Level 139 mmol/L (136-145)
[2019-07-20 21:39] VITALS: BP 132/71; PULSE 94; RESP 17; O2SAT 98
== END 2019-07-20 21:39 | disposition home or self-care (01) ==
PROVIDERS: Emergency Provider Emergency Medicine
DX: R21 Rash and other nonspecific skin eruption (principal); F17.200 Nicotine dependence, unspecified, uncomplicated
CPT/HCPCS: 80048; 84703; 85025; 96374; 99284; A4216

== ENCOUNTER 2019-08-03 15:46 | Emergency (ER) | payer MEDICAID, SELFPAY ==
[2019-08-03 15:46] VITALS: BP 149/85; PULSE 139; RESP 18; TEMP 36.3; O2SAT 99; BMI 31.6
[2019-08-03 16:04] VITALS: PULSE 132; RESP 16; O2SAT 96
--- NOTE | 2019-08-03 16:13 | ED.DCSUM_ITS ---
History of Present Illness Chief Complaint: Abscess Informant: Patient Onset: Days Context: Gradual Onset Current Severity: Mild Maximum Severity: Moderate Narrative: Patient presents with a painful lesion to her left buttock. Patient states she noticed it a few days ago. It has become more painful to sit down. She denies fever. Patient was seen a few weeks ago for a rash. She was given steroids and Benadryl. She states she continues to use Benadryl cream as needed for some itching. - Past Medical History (1) Epilepsy Status: Chronic (2) GERD (gastroesophageal reflux disease) Status: Chronic (3) Depression Status: Chronic Past Medical History - Allergies and Home Meds Allergies/Adverse Reactions: Allergies lactose Adverse Reaction (Verified 08/03/19 16:02) Upset Stomach tomato Adverse Reaction (Verified 08/03/19 16:02) Vomiting Primary Care Physician: Melvi Holloway DO [STAFF PHYSICIAN] - As Needed Prior records reviewed: Yes Surgical History: noncontributory Smoking Status: Current every day smoker Alcohol: Occasional Drugs: - - Methamphetamine Review of Systems General: Denies: Chills, Fever Eyes: Denies: Visual changes - bilaterally ENT: Denies: Bilateral ear pain Cardiovascular: Denies: Chest pain Respiratory: Denies: Dyspnea, Cough Musculoskeletal: Denies: Extremity Pain Skin: Reports: Rash Neurological: Denies: Headache Allergy: Denies: Uticaria Physical Exam Vital Signs/Narrative: Vital Signs Temp Pulse Resp BP Pulse Ox 08/03/19 16:04 132 H 16 96 08/03/19 15:46 97.3 F L 139 H 18 149/85 H 99 Inital Vital Signs reviewed: Yes General: Well nourished, Well developed Head: Normocephalic ENT: Moist mucous membranes Neck: Supple Cardiovascular: No murmurs, Tachycardia Respiratory: No distress, CTA bilaterally Abdomen: Soft, Nontender Skin: - - Multiple areas of folliculitis over the buttocks. On the left buttock there is a 1 cm diameter indurated cutaneous abscess. No fluctuance at this time. Psychological: Normal affect Diagnostic/Tx/Re-eval - Medical Decision Making Advised patient at this time abscess is indurated and is not of benefit from drainage. I encouraged warm compresses and we will treat her with Bactrim and Keflex. She is referred to Dr. Holloway for follow-up, next on no doc list. ED Disposition - Plan for ED Patient: Disposition: Home or Assisted Living Diagnosis: Cutaneous abscess Instructions: ABSCESS, Antiobiotic Treatment Only Prescriptions: Smz/Tmp Ds [Bactrim Ds] 1 tab PO BID #20 tab Transmission Status: Received by [facility] #30 Cephalexin [Keflex] 500 mg PO Q6 #40 cap Transmission Status: Received by [facility]30 Naproxen [Naprosyn] 500 mg PO BID PRN #20 tab Transmission Status: Received by [facility]30 Referrals: Melvi Holloway DO [STAFF PHYSICIAN] - As Needed
[2019-08-03] MEDS: Smz/Tmp Ds Tablet 1 TABLET PO (16:26)
[2019-08-03] MEDS: Naproxen 500 MG Tablet PO (16:26)
[2019-08-03] MEDS: Cephalexin 250 MG Capsule 500 MG PO (16:26)
== END 2019-08-03 16:28 | disposition home or self-care (01) ==
PROVIDERS: Emergency Provider Emergency Medicine
DX: L02.31 Cutaneous abscess of buttock (principal); L73.9 Follicular disorder, unspecified; F32.9 Major depressive disorder, single episode, unspecified; G40.909 Epilepsy, unspecified, not intractable, without status epilepticus; Z79.899 Other long term (current) drug therapy; F17.200 Nicotine dependence, unspecified, uncomplicated
CPT/HCPCS: 99283

== ENCOUNTER 2019-08-23 19:26 | Emergency (ER) | payer MEDICAID, SELFPAY ==
[2019-08-23 19:27] VITALS: BP 128/73; PULSE 90; RESP 16; TEMP 36.6; O2SAT 96; BMI 31.3
[2019-08-23 21:01] LABS: Absolute Lymphocyte Count 2.68 X10^3/uL (0.83-4.51); Absolute Neutrophil Count 5.8 X10^3/uL (2.0-7.7); Basophil# 0.05 X10^3/uL; Basophil% 0.5 % (0-1); Eosinophil# 0.35 X10^3/uL; Eosinophils% 3.6 % (0-5); Hematocrit 42.3 % (37-47); Hemoglobin 13.9 g/dL (12.0-15.0); Lymphocyte # 2.68 X10^3/ul (4.0); Lymphocyte % 27.3 % (19-41); Mean Corp Hgb Conc 32.9 g/dL (32-36); Mean Corpuscular Hgb 29.5 pg (27.0-32.0); Mean Corpuscular Volume 89.8 fL (81-99); Mean Platelet Vol. 9.4 fl (6.2-12.0); Monocyte# 0.84 X10^3/uL; Monocyte% 8.6 % (0-10); NRBC Flagged by Analyzer 0 % (0-5); Neutrophil # 5.84 X10^3/uL (2.7-7.7); Neutrophil % 59.6 % (47-70); Platelet Count 257 K/mm3 (150-450); RBC Distribution Width CV 14.2 % (11.6-14.6); RBC Distribution Width SD 46.6 fl (35.1-43.9); Red Blood Count 4.71 M/mm3 (4.2-5.4); White Blood Count 9.8 K/mm3 (4.4-11.0)
[2019-08-23] MEDS: 0.9% Normal Saline 1,000 ML 1000 ML IV (21:02)
[2019-08-23] MEDS: Ondansetron 4 MG/2 ML Vial IV (21:02)
[2019-08-23 21:13] LABS: Mucous, Urine 0 SEEN /hpf (<or=2+); Red Blood Cells-Urine 0 SEEN /hpf (0-5)
[2019-08-23 21:16] LABS: Color, Urine Yellow (Yellow); Glucose, Dipstick Normal (Normal); Ketone-Dipstick 5 mg/dl (Negative); Leukocyte Esterase-Dipstick 25 /ul (Negative); Nitrite-Dipstick Negative (Negative); Occult Blood-Urine Negative /ul (Negative); Protein-Dipstick 15 mg/dl (Negative); Urine Clarity Sl. Cloudy (Clear); Urine Urobilinogen 4 mg/dl (Normal)
[2019-08-23 21:17] LABS: Urine Bilirubin Dipstick 1 mg/dL (Negative)
[2019-08-23 21:18] LABS: Internal QC Validated? YES +Cl - CLEAR BKGD; Pregnancy, Urine Negative Negative
[2019-08-23 21:19] LABS: ALB/GLOB Ratio 1.1 RATIO (0.9-2.4); AST(SGOT) 15 U/L (15-37); Alanine Aminotransfer ALT/SGPT 24 U/L (13-56); Albumin, Serum 3.9 g/dL (3.2-5.0); Alkaline Phosphatase 84 U/L (45-117); Anion Gap 4 (5-15); BUN 8 mg/dL (7-18); BUN/Creat Ratio 10.4 RATIO (10-20); Calcium,Total 8.6 mg/dL (8.5-10.1); Chloride 109 mmol/L (98-107); Creatinine, Serum 0.77 mg/dL (0.55-1.02); EST Glomerular Filtration Rate 94 mL/min (>60); Est Glom Filt Rate - Afr Amer 114 mL/min (>60); Estimated Creatinine Clearance 112.66 ml/min; Globulin 3.6 g/dL (2.2-4.2); Glucose 90 mg/dL (74-106); Lipase 136 U/L (73-393); Potassium 3.3 mmol/L (3.5-5.1); Protein, Total 7.5 g/dL (6.4-8.2); Sodium Level 141 mmol/L (136-145)
[2019-08-23 21:24] LABS: Bacteria RARE /hpf (None Seen); Squamous Epithelial Cells - UA 5-10 SEEN /hpf (5-10); White Blood Cells 0-5 SEEN /hpf (0-5)
--- NOTE | 2019-08-23 21:39 | ED.VIS.GEN ---
History of Present Illness Chief Complaint: Nausea/Vomiting/Diarrhea Informant: Patient Narrative: Patient presents the emergency department nausea vomiting diarrhea. Symptoms have been present for 2 days. She denies any sick contacts or bad food exposures. No blood in the stool or the vomit. No fevers. She states her urine is less than what she would expect. No rashes. No significant abdominal pain but does note cramping prior to vomiting and prior to diarrhea. Past Medical History - Allergies and Home Meds Allergies/Adverse Reactions: Allergies lactose Adverse Reaction (Verified 08/23/19 19:29) Upset Stomach tomato Adverse Reaction (Verified 08/23/19 19:29) Vomiting Primary Care Physician: Care Physician,No Primary [Primary Care Provider] - Surgical History: noncontributory Smoking Status: Current every day smoker Review of Systems General: Denies: Chills, Fever, Sweats Eyes: Denies: Visual changes - bilaterally, Diplopia ENT: Denies: Rhinorrhea, Sore throat Cardiovascular: Denies: Chest pain, Palpitations Respiratory: Denies: Dyspnea, Cough, Dyspnea on exertion Gastrointestinal: Reports: Nausea, Vomiting, Diarrhea. Denies: Abdominal pain, Constipation, Melena, Hematochezia Genitourinary: Denies: Dysuria, Hematuria, Frequency Musculoskeletal: Denies: Back pain, Extremity Pain Skin: Denies: Rash, Wounds Neurological: Denies: Headache, Weakness, Numbness Physical Exam Vital Signs/Narrative: Vital Signs Temp Pulse Resp BP Pulse Ox 08/23/19 19:27 98 F 90 16 128/73 H 96 Inital Vital Signs reviewed: Yes General: Well nourished, Well developed, No Acute Distress Head: Normocephalic, Atraumatic Eyes: Perrl, EOMI ENT: Moist mucous membranes, No rhinorrhea Neck: Supple, Nontender Cardiovascular: Regular rate, Regular rhythm, No murmurs Respiratory: No distress, CTA bilaterally, Chest nontender Abdomen: Soft, Nontender, Nondistended, Normal bowel sounds Back: Nontender, Normal Inspection Extremities: Nontender, No edema Skin: Normal color, No rash Neurological: Alert, Oriented x3, Cranial nerves II-XII grossly intact, Normal Strength, Normal Sensation Psychological: Normal affect, Normal Mood Diagnostic/Tx/Re-eval - Medical Decision Making Sick labs were obtained showed a normal white count. Normal lipase. Normal hepatic panel. She received IV fluids and Zofran. She will be given a p.o. challenge and if passed she will be discharged. ED Disposition - Plan for ED Patient: Diagnosis: Gastroenteritis Instructions: GASTROENTERITIS, Viral (6y-Adult) Prescriptions: Ondansetron [Zofran Odt] 4 mg PO Q6H PRN PRN #20 tab PRN Reason: Nausea Prescription Printed Referrals: Melvi Holloway DO [STAFF PHYSICIAN] - 3-5 Days if not improving Additional Instructions: I would encourage you to drink oral fluids. Imodium as needed for diarrhea Zofran for nausea and vomiting. Please note that Zofran can cause constipation.
[2019-08-23 22:27] VITALS: BP 113/58; PULSE 90; RESP 18; O2SAT 100
== END 2019-08-23 22:27 | disposition home or self-care (01) ==
PROVIDERS: Emergency Provider Emergency Medicine
DX: K52.9 Noninfective gastroenteritis and colitis, unspecified (principal); F17.200 Nicotine dependence, unspecified, uncomplicated
CPT/HCPCS: 80053; 81001; 81025; 83690; 85025; 96361; 96374; 99283; J7030; A4216; J2405

== ENCOUNTER 2019-10-27 03:36 | Emergency (ER) | payer MEDICAID, SELFPAY ==
[2019-10-27 03:37] VITALS: BP 143/91; PULSE 116; RESP 18; TEMP 36.7; O2SAT 98; BMI 29.0
--- NOTE | 2019-10-27 03:44 | EKG12_ITS ---
Test Reason : SEIZURE Blood Pressure : / mmHG Vent. Rate : 105 BPM Atrial Rate : 105 BPM P-R Int : 132 ms QRS Dur : 084 ms QT Int : 338 ms P-R-T Axes : 021 055 020 degrees QTc Int : 446 ms Sinus tachycardia Otherwise normal ECG Confirmed by JOAQUIN MUELLER, CLAUDIA ([id number]), map editor ALYCIA STEPHENSON ([id number]) on 10/31/2019 2:17:49 PM Referred By: SYBIL Confirmed By:TRISTA NUÑEZ MD
--- NOTE | 2019-10-27 03:45 | ED.VIS.GEN ---
History of Present Illness Chief Complaint: Seizure Informant: Patient Onset: Today, Yesterday Context: Gradual Onset Timing: Intermittent Current Severity: Moderate Maximum Severity: Moderate Narrative: The patient is a 29-year-old female with history of anxiety, depression, and reported seizure disorder that presents to the emergency department with seizure like activity. Apparently, per the patient, she has been having seizures since 6 PM yesterday. She was actually on the way to the hospital with her significant other. She had more seizure-like activity and squad was called. On squad arrival, the patient was alert and oriented. There is no tongue biting or urinary incontinence. History is had together from the patient. When I enter the room, she is having 1 of her seizures. The patient is writhing with some nonsensical movement. There is no tonic-clonic jerking. There is no rhythmicity. There is no postictal period. She states that she has these when she is stressed. She states she has been under significant stress with her boyfriend's father. She denies being suicidal or homicidal. She denies any drug or alcohol use. She states that up until today, she has been in her normal state of health. Prior similar symptoms: Yes Recent Illness/Hospitalization: No Past Medical History - Allergies and Home Meds Allergies/Adverse Reactions: Allergies lactose Adverse Reaction (Verified 10/27/19 03:42) Upset Stomach tomato Adverse Reaction (Verified 10/27/19 03:42) Vomiting Primary Care Physician: Care Physician,No Primary [Primary Care Provider] - Prior records reviewed: Yes Past Medical History: - - Reported seizure history Surgical History: noncontributory Smoking Status: Current every day smoker Review of Systems General: Denies: Chills, Fever, Sweats Eyes: Denies: Visual changes - bilaterally, Diplopia ENT: Denies: Rhinorrhea, Sore throat Cardiovascular: Denies: Chest pain, Palpitations Respiratory: Denies: Dyspnea, Cough, Dyspnea on exertion Gastrointestinal: Denies: Abdominal pain, Nausea, Vomiting, Diarrhea, Melena, Hematochezia Genitourinary: Denies: Dysuria, Hematuria, Frequency Musculoskeletal: Denies: Back pain, Extremity Pain Skin: Denies: Rash, Wounds Neurological: Denies: Headache, Weakness, Numbness Physical Exam Vital Signs/Narrative: Vital Signs Temp Pulse Resp BP Pulse Ox 10/27/19 03:37 98.0 F 116 H 18 143/91 H 98 Inital Vital Signs reviewed: Yes General: Well nourished, Well developed, No Acute Distress Head: Normocephalic, Atraumatic Eyes: Perrl, EOMI ENT: Moist mucous membranes, No rhinorrhea Neck: Supple, Nontender Cardiovascular: Regular rate, Regular rhythm, No murmurs Respiratory: No distress, CTA bilaterally, Chest nontender Abdomen: Soft, Nontender, Nondistended, Normal bowel sounds Back: Nontender, Normal Inspection Extremities: Nontender, No edema Skin: Normal color, No rash Neurological: Alert, Oriented x3, Cranial nerves II-XII grossly intact, Normal Strength, Normal Sensation Psychological: Normal affect, Normal Mood Diagnostic/Tx/Re-eval Abnormal Lab Results 10/27/19 10/27/19 10/27/19 03:45 03:45 03:45 WBC 12.4 H RBC 4.51 Hgb 13.6 Hct 39.8 MCV 88.2 MCH 30.2 MCHC 34.2 RDW Std Deviation 44.6 H RDW Coeff of Abiodun 13.8 Plt Count 297 MPV 9.9 Immature Gran % (Auto) 0.400 Neut % (Auto) 64.2 Lymph % (Auto) 26.1 [place] % (Auto) 7.8 Eos % (Auto) 1.1 Baso % (Auto) 0.4 Absolute Neuts (auto) 8.0 H Absolute Lymphs (auto) 3.24 Nucleated RBC % 0 Sodium 139 Potassium 3.0 L Chloride 105 Carbon Dioxide 23.0 Anion Gap 11 BUN 8 Creatinine 0.88 Estim Creat Clear Calc 98.58 Est GFR (MDRD) Af Amer 98 Est GFR (MDRD) Non-Af 81 BUN/Creatinine Ratio 9.1 L Glucose 111 H Calcium 9.1 Total Bilirubin 0.90 AST 12 L ALT 19 Alkaline Phosphatase 75 Total Protein 7.7 Albumin 4.3 Globulin 3.4 Albumin/Globulin Ratio 1.3 Urine Test Urine Opiates Screen Urine Methadone Screen Ur Barbiturates Screen Ur Phencyclidine Scrn Ur Amphetamines Screen U Methamphetamin-MDMA U Benzodiazepines Scrn Urine Cocaine Screen U Cannabinoids Screen Ur Drug Screen Comment Ethyl Alcohol < 3.0 10/27/19 10/27/19 03:55 03:55 WBC RBC Hgb Hct MCV MCH MCHC RDW Std Deviation RDW Coeff of Abiodun Plt Count MPV Immature Gran % (Auto) Neut % (Auto) Lymph % (Auto) [place] % (Auto) Eos % (Auto) Baso % (Auto) Absolute Neuts (auto) Absolute Lymphs (auto) Nucleated RBC % Sodium Potassium Chloride Carbon Dioxide Anion Gap BUN Creatinine Estim Creat Clear Calc Est GFR (MDRD) Af Amer Est GFR (MDRD) Non-Af BUN/Creatinine Ratio Glucose Calcium Total Bilirubin AST ALT Alkaline Phosphatase Total Protein Albumin Globulin Albumin/Globulin Ratio Urine Test Negative Urine Opiates Screen NEGATIVE Urine Methadone Screen NEGATIVE Ur Barbiturates Screen NEGATIVE Ur Phencyclidine Scrn NEGATIVE Ur Amphetamines Screen NEGATIVE U Methamphetamin-MDMA NEGATIVE U Benzodiazepines Scrn NEGATIVE Urine Cocaine Screen NEGATIVE U Cannabinoids Screen NEGATIVE Ur Drug Screen Comment Ethyl Alcohol - Medical Decision Making The patient symptoms do seem most consistent with pseudoseizure. She states that she has stress-induced seizures. She has been on various antiepileptics, but states they will make her seizures worse. She is had no tongue biting or urinary incontinence. She does admit to taking caffeine pills to help stay awake. Metabolic work-up was pursued. Metabolic work-up is unremarkable except for mild hypokalemia. I did reevaluate the patient. She had been sleeping comfortably. When I woke her, she had another episode. She was moaning, arching her back, and moving her arms chaotic fully. Again, this is not consistent with seizure. She then was able to speak to me without a postictal period. The plan will be to observe the patient and then discharge with outpatient follow-up. Again, these do seem to be consistent with nonepileptic spells. I do not see indication for advanced imaging as the patient has had recent negative MRI. I do not feel that she requires antiepileptics. The patient will be discharged home. Impression Nonepileptic psychogenic seizure ED Disposition - Plan for ED Patient: Instructions: ED Stress React Referrals: Care Physician,No Primary [Primary Care Provider] -
[2019-10-27] MEDS: 0.9% Normal Saline 1,000 ML 1000 ML IV (04:00)
[2019-10-27] MEDS: LORazepam 2 MG/ML Syringe 1 MG IV (04:00)
[2019-10-27 04:04] LABS: Internal QC Validated? YES +Cl - CLEAR BKGD; Pregnancy, Urine Negative Negative
[2019-10-27 04:11] LABS: Absolute Lymphocyte Count 3.24 X10^3/uL (0.83-4.51); Basophil# 0.05 X10^3/uL; Basophil% 0.4 % (0-1); Eosinophil# 0.14 X10^3/uL; Eosinophils% 1.1 % (0-5); Hematocrit 39.8 % (37-47); Hemoglobin 13.6 g/dL (12.0-15.0); Lymphocyte # 3.24 X10^3/ul (4.0); Lymphocyte % 26.1 % (19-41); Mean Corp Hgb Conc 34.2 g/dL (32-36); Mean Corpuscular Hgb 30.2 pg (27.0-32.0); Mean Corpuscular Volume 88.2 fL (81-99); Mean Platelet Vol. 9.9 fl (6.2-12.0); Monocyte# 0.97 X10^3/uL; Monocyte% 7.8 % (0-10); NRBC Flagged by Analyzer 0 % (0-5); Neutrophil # 7.97 X10^3/uL (2.7-7.7); Neutrophil % 64.2 % (47-70); Platelet Count 297 K/mm3 (150-450); RBC Distribution Width CV 13.8 % (11.6-14.6); RBC Distribution Width SD 44.6 fl (35.1-43.9); Red Blood Count 4.51 M/mm3 (4.2-5.4); White Blood Count 12.4 K/mm3 (4.4-11.0)
[2019-10-27 04:12] LABS: ALB/GLOB Ratio 1.3 RATIO (0.9-2.4); AST(SGOT) 12 U/L (15-37); Alanine Aminotransfer ALT/SGPT 19 U/L (13-56); Albumin, Serum 4.3 g/dL (3.2-5.0); Alkaline Phosphatase 75 U/L (45-117); Anion Gap 11 (5-15); BUN 8 mg/dL (7-18); BUN/Creat Ratio 9.1 RATIO (10-20); Calcium,Total 9.1 mg/dL (8.5-10.1); Chloride 105 mmol/L (98-107); Creatinine, Serum 0.88 mg/dL (0.55-1.02); EST Glomerular Filtration Rate 81 mL/min (>60); Est Glom Filt Rate - Afr Amer 98 mL/min (>60); Estimated Creatinine Clearance 98.58 ml/min; Globulin 3.4 g/dL (2.2-4.2); Glucose 111 mg/dL (74-106); Protein, Total 7.7 g/dL (6.4-8.2); Sodium Level 139 mmol/L (136-145)
[2019-10-27 04:21] LABS: Alcohol, Blood (Medical)-Serum < 3.0 mg/dL
[2019-10-27 04:28] LABS: Amphetamine Urine VISTA NEGATIVE (<1000 ng/mL); Barbiturate Urine VISTA NEGATIVE (< 200 ng/mL); Benzodiazepine Urine VISTA NEGATIVE (< 200 ng/mL); Cocaine Urine VISTA NEGATIVE (< 300 ng/mL); Ecstacy Urine VISTA NEGATIVE (< 500 ng/mL); Methadone Urine VISTA NEGATIVE (< 300 ng/mL); PCP Urine VISTA NEGATIVE (< 25 ng/mL); THC Urine VISTA NEGATIVE (< 50 ng/mL); Vista UDS pH Range 6
[2019-10-27 05:45] VITALS: PULSE 78; RESP 16; O2SAT 96
[2019-10-27 06:22] VITALS: BP 94/52; PULSE 87; RESP 16; O2SAT 98
== END 2019-10-27 06:22 | disposition home or self-care (01) ==
LOC: ED 04:06
PROVIDERS: Emergency Provider Emergency Medicine
DX: G40.89 Other seizures (principal); F17.200 Nicotine dependence, unspecified, uncomplicated
CPT/HCPCS: 80053; 80307; 80320; 81025; 85025; 93005; 96360; 96361; 96375; 99285; J7030; P9612; G0480

== ENCOUNTER 2019-12-11 15:55 | Emergency (ER) | payer MEDICAID, SELFPAY ==
[2019-12-11 15:56] VITALS: BP 144/94; PULSE 105; RESP 16; TEMP 36.4; O2SAT 99; BMI 28.4
--- NOTE | 2019-12-11 16:27 | CT_ITS ---
STUDY: CT LUMBAR SPINE WITHOUT CONTRAST REASON FOR EXAM: Female, 29 years old. FELL DOWN STAIRS/BACK PAIN/UNABLE TO MOVE LT LEG RADIATION DOSAGE (If Supplied By Facility): CTDIvol = ( 16.28 ) mGy, DLP = ( 530.19 ) mGycm TECHNIQUE: The patient was scanned in a multi detector CT scanner. High resolution transaxial imaging was performed. Images were obtained from T12 to the lower coccyx. Sagittal and coronal images were reconstructed. Individualized dose optimization techniques were used for this CT. COMPARISON: None FINDINGS: Normal lumbar lordosis. There is no substantial scoliosis. Normal vertebrae of the lumbar spine. L1-2: Normal endplates. Normal disc height and morphology. Normal bilateral facet joints. Normal central canal and bilateral lateral recesses. Normal bilateral intervertebral neural foramina. L2-3: Normal endplates. Normal disc height and morphology. Normal bilateral facet joints. Normal central canal and bilateral lateral recesses. Normal bilateral intervertebral neural foramina. L3-4: Normal endplates. Normal disc height and morphology. Normal bilateral facet joints. Normal central canal and bilateral lateral recesses. Normal bilateral intervertebral neural foramina. L4-5: Normal endplates. Normal disc height and morphology. Normal bilateral facet joints. Normal central canal and bilateral lateral recesses. Normal bilateral intervertebral neural foramina. L5-S1: Normal endplates. Mild central disc bulge.. Normal bilateral facet joints. Normal central canal and bilateral lateral recesses. Normal bilateral intervertebral neural foramina. Normal visualized paraspinous soft tissue structures. CT/Spine Lumbar without Contrast IMPRESSION: Mild central disc bulge at L5/S1 No demonstrated fracture or suspicious osseous lesion Electronically Signed: Arnoldo Cruz MD at 18:52 EDT , Service support ,
--- NOTE | 2019-12-11 16:28 | ED.DCSUM_ITS ---
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 No other injury. Location: Low back Quality of Pain: Aching Current Severity: Moderate Maximum Severity: Severe Worsened by: Movement Relieved by: Remaining still Associated Symptoms: Parasthesias - Throughout left lower extremity, stocking glove distribution all the way to toes, Weakness - Left lower extremity, Loss of function - Left lower extremity, Inability to ambulate. Negative for: Loss of consciousness, Amnesia Narrative: Numbness and weakness in her left lower extremity after direct trauma to her low back, see above. She states now she still feels numb and weak, but she is able to move it and feel it, much improved compared with before. There is no urinary or bowel incontinence. She denies any abdominal or chest pain. She did not hit her head or lose consciousness. She denies any neck pain. No injury to her legs or arms. She is on no anticoagulants. She has a history of epilepsy, she has had no seizures today. - Past Medical History (1) Depression Status: Chronic (2) GERD (gastroesophageal reflux disease) Status: Chronic (3) Seizure disorder Status: Chronic Past Medical History - Allergies and Home Meds Allergies/Adverse Reactions: Allergies lactose Adverse Reaction (Verified 12/11/19 15:55) Upset Stomach tomato Adverse Reaction (Verified 12/11/19 15:55) Vomiting Primary Care Physician: Care Physician,No Primary [Primary Care Provider] - Surgical History: noncontributory Smoking Status: Current every day smoker Review of Systems General: Denies: Chills, Fever, Sweats Eyes: Denies: Visual changes - bilaterally, Diplopia ENT: Denies: Bilateral ear pain, Rhinorrhea, Sore throat Cardiovascular: Denies: Chest pain, Palpitations Respiratory: Denies: Dyspnea, Cough, Dyspnea on exertion Gastrointestinal: Denies: Abdominal pain, Nausea, Vomiting, Diarrhea, Melena, Hematochezia Genitourinary: Denies: Dysuria, Hematuria, Frequency Musculoskeletal: Reports: Back pain. Denies: Neck pain, Swelling, Extremity Pain Skin: Denies: Rash, Wounds Neurological: Reports: Weakness, Numbness. Denies: Headache Physical Exam Vital Signs/Narrative: Vital Signs Temp Pulse Resp BP Pulse Ox 12/11/19 15:56 97.6 F L 105 H 16 144/94 H 99 Inital Vital Signs reviewed: Yes General: Well nourished, Well developed, Unkempt, - - nad, sitting up in bed Head: Normocephalic, Atraumatic Eyes: Perrl, EOMI ENT: TM's clear, No hemotympanum or drainage, No trauma Neck: Nontender, Full ROM Cardiovascular: Regular rate, Regular rhythm, No murmurs Respiratory: No distress, CTA bilaterally, Chest nontender Abdomen: Soft, Nontender, Nondistended, Normal bowel sounds Back: Spinal Tenderness - Significant lumbar tenderness. No palpable step-off. Erythematous in this area, skin intact Extremeties: Limited range of motion of the left knee, patient states she tore a ligament long ago and she is afraid to bend it for risk of locking the knee. Extensor mechanism intact without difficulty or pain. No signs of trauma x4. Full range of motion throughout all of the other 3 extremities and the other joints of the left lower extremity. 2+/4 distal pulses x4. Skin: Normal color, No rash Neurological: Alert, Oriented x3, Cranial nerves II-XII grossly intact, Parasthesia - Throughout left lower extremity, but is able to feel, Weakness - 4+/5 throughout left lower extremity. All muscle group function is intact. Psychological: Normal affect, Normal Mood Diagnostic/Tx/Re-eval Impressions Lumbar Spine CT 12/11/19 16:27 IMPRESSION: Mild central disc bulge at L5/S1 No demonstrated fracture or suspicious osseous lesion Electronically Signed: Arnoldo Cruz MD at 18:52 EDT , Service support , 12/11/19 16:27 Spine Lumbar without Contrast [CT] Stat Laboratory Results 12/11/19 12/11/19 12/11/19 16:50 16:50 18:07 WBC 9.4 RBC 4.38 Hgb 13.0 Hct 39.5 MCV 90.2 MCH 29.7 MCHC 32.9 RDW Std Deviation 44.3 H RDW Coeff of Abiodun 13.5 Plt Count 257 MPV 10.1 Immature Gran % (Auto) 0.200 Neut % (Auto) 61.2 Lymph % (Auto) 27.1 [place] % (Auto) 7.5 Eos % (Auto) 3.4 Baso % (Auto) 0.6 Absolute Neuts (auto) 5.8 Absolute Lymphs (auto) 2.55 Nucleated RBC % 0 Sodium 139 Potassium 4.1 Chloride 110 H Carbon Dioxide 26.0 Anion Gap 3 L BUN 12 Creatinine 0.74 Estim Creat Clear Calc 117.23 Est GFR (MDRD) Af Amer 120 Est GFR (MDRD) Non-Af 99 BUN/Creatinine Ratio 16.3 Glucose 83 Calcium 9.0 Serum , Qual NEGATIVE - Medical Decision Making Testing as above. Patient was given some morphine for the pain. She did well. Symptoms in her left lower extremity resolved, namely the weakness and numbness. I reexamined her. She is strong, she has normal sensation, normal reflexes, no clonus, downgoing toes. She is able to walk without difficulty, except for increased pain in her back so she is a little antalgic but she states her left leg feels back to normal. Given this I do not think she needs a stat MRI, however I think she should have one as an outpatient. She does not have a PCP. I have referred her to the next doctor on the unassigned list, prescribed her a short course of analgesics, and advised her to return if she has recurrent neurologic symptoms in her lower extremity. I did talk to her about the bulge seen at the L5-S1 level, again an MRI would be a better study but not available at this hour since the tech is not in the hospital, and not necessary emergently. Also, she urinated without any retention or incontinence, she has no saddle anesthesia, she has no symptoms in her upper extremities neurologically. ED Disposition - Plan for ED Patient: Disposition: Home or Assisted Living Diagnosis: Lumbar contusion, Neurapraxia of left lower extremity Instructions: ED Contusion Back, ED PERIPHERAL NEUROPATHY Prescriptions: traMADol [Ultram] 50 mg PO Q4H PRN PRN 3 Days #18 tab PRN Reason: Pain Transmission Status: Sent to [facility] #[id number] Referrals: Adela Savage MD [STAFF PHYSICIAN] - (call for appt) Additional Instructions: If your left lower extremity becomes numb and weak for any significant period of time, return to the ER immediately. Otherwise follow-up with your doctor, you should be evaluated for an outpatient MRI.
[2019-12-11] MEDS: Morphine 4 MG/ML Syringe IV (17:01)
[2019-12-11 17:03] LABS: Absolute Lymphocyte Count 2.55 X10^3/uL (0.83-4.51); Absolute Neutrophil Count 5.8 X10^3/uL (2.0-7.7); Basophil# 0.06 X10^3/uL; Basophil% 0.6 % (0-1); Eosinophil# 0.32 X10^3/uL; Eosinophils% 3.4 % (0-5); Hematocrit 39.5 % (37-47); Lymphocyte # 2.55 X10^3/ul (4.0); Lymphocyte % 27.1 % (19-41); Mean Corp Hgb Conc 32.9 g/dL (32-36); Mean Corpuscular Hgb 29.7 pg (27.0-32.0); Mean Corpuscular Volume 90.2 fL (81-99); Mean Platelet Vol. 10.1 fl (6.2-12.0); Monocyte# 0.71 X10^3/uL; Monocyte% 7.5 % (0-10); NRBC Flagged by Analyzer 0 % (0-5); Neutrophil # 5.75 X10^3/uL (2.7-7.7); Neutrophil % 61.2 % (47-70); Platelet Count 257 K/mm3 (150-450); RBC Distribution Width CV 13.5 % (11.6-14.6); RBC Distribution Width SD 44.3 fl (35.1-43.9); Red Blood Count 4.38 M/mm3 (4.2-5.4); White Blood Count 9.4 K/mm3 (4.4-11.0)
[2019-12-11 17:19] LABS: Anion Gap 3 (5-15); BUN 12 mg/dL (7-18); BUN/Creat Ratio 16.3 RATIO (10-20); Chloride 110 mmol/L (98-107); Creatinine, Serum 0.74 mg/dL (0.55-1.02); EST Glomerular Filtration Rate 99 mL/min (>60); Est Glom Filt Rate - Afr Amer 120 mL/min (>60); Estimated Creatinine Clearance 117.23 ml/min; Glucose 83 mg/dL (74-106); Potassium 4.1 mmol/L (3.5-5.1); Sodium Level 139 mmol/L (136-145)
[2019-12-11 18:29] LABS: Internal QC Validated? YES +Cl - CLEAR BKGD; Pregnancy, Serum, hCG Quali. NEGATIVE Negative
[2019-12-11 19:54] LABS: Bacteria 0 SEEN /hpf (None Seen); Mucous, Urine 0 SEEN /hpf (<or=2+); Red Blood Cells-Urine 0 SEEN /hpf (0-5); White Blood Cells 0 SEEN /hpf (0-5)
[2019-12-11 19:56] VITALS: BP 117/70; PULSE 83; RESP 18; O2SAT 99
[2019-12-11 19:56] LABS: Color, Urine Yellow (Yellow); Glucose, Dipstick Normal (Normal); Ketone-Dipstick 5 mg/dl (Negative); Leukocyte Esterase-Dipstick Negative /ul (Negative); Nitrite-Dipstick Negative (Negative); Occult Blood-Urine Negative /ul (Negative); Protein-Dipstick Negative (Negative); Specific Gravity, Urine 1.015 (1.002-1.030); Urine Bilirubin Dipstick Negative (Negative); Urine Clarity Clear (Clear); Urine Urobilinogen Normal (Normal)
[2019-12-11 20:02] LABS: Squamous Epithelial Cells - UA 0-5 SEEN /hpf (5-10)
[2019-12-11 20:26] VITALS: BP 136/75; PULSE 76; RESP 18; O2SAT 97
== END 2019-12-11 20:27 | disposition home or self-care (01) ==
PROVIDERS: Emergency Provider Emergency Medicine
DX: S30.0XXA Contusion of lower back and pelvis, initial encounter (principal); S84.92XA Injury of unspecified nerve at lower leg level, left leg, initial encounter; F17.200 Nicotine dependence, unspecified, uncomplicated; W10.9XXA Fall (on) (from) unspecified stairs and steps, initial encounter
CPT/HCPCS: 72131; 80048; 81001; 84703; 85025; 96374; 99284; A4216

== ENCOUNTER → 2020-01-01 15:12 | Outpatient (CLI) | payer MEDICAID, SELFPAY ==
[2019-12-26 09:07] VITALS: BMI 28.4
--- NOTE | 2020-01-01 15:13 | MRI_ITS ---
STUDY: MRI LUMBAR SPINE WITHOUT CONTRAST REASON FOR EXAM: Female, 29 years old. DISC BULGE, BACK PAIN -- low back and left leg pain x several weeks, fall TECHNIQUE: Standardized fat and water weighted pulse sequences were obtained in the sagittal and axial planes. COMPARISON: None FINDINGS: T12-L1: Normal endplates. Normal disc height, hydration and morphology. Normal bilateral facet joints. Normal central canal and bilateral lateral recesses. Normal bilateral intervertebral neural foramina. Normal lumbar lordosis. There is no substantial scoliosis. Normal conus medullaris that terminates at the L1-2: Normal endplates. Normal disc height, hydration and morphology. Normal bilateral facet joints. Normal central canal and bilateral lateral recesses. Normal bilateral intervertebral neural foramina. L2-3: Normal endplates. There is mild loss of disc height and broad-based disc bulging. There is bilateral facet hypertrophy. There is NO disc herniation or spinal stenosis. There is NO foraminal stenosis. L3-4: Normal endplates. There is mild loss of disc height and broad-based disc bulging. There is bilateral facet hypertrophy. There is NO disc herniation or spinal stenosis. There is NO foraminal stenosis. L4-5: Normal endplates. There is mild loss of disc height and broad-based disc bulging. There is bilateral facet hypertrophy. There is NO disc herniation or spinal stenosis. There is mild bilateral foraminal stenosis. L5-S1: Normal endplates. There is mild loss of disc height and broad-based disc bulging. There is bilateral facet hypertrophy. There is NO disc herniation or spinal stenosis. There is mild bilateral foraminal stenosis. Normal visualized sacral ala. Normal visualized paraspinous soft tissue structures. MRI/Spine Lumbar (Routine) IMPRESSION: There is NO fracture or malalignment. There is NO disc herniation or cord compression. There are degenerative disc and facet changes as described detail above. Electronically Signed: Joseph Reynolds MD at 5:25 EDT , Service support ,
== END ==
PROVIDERS: Referring Provider Internal Medicine; Visit Provider Internal Medicine
DX: M51.26 Other intervertebral disc displacement, lumbar region (principal); M54.9 Dorsalgia, unspecified
CPT/HCPCS: 72148

== ENCOUNTER 2020-01-04 22:11 | Emergency (ER) | payer MEDICAID, SELFPAY ==
[2019-12-26 09:07] VITALS: BMI 28.4
[2020-01-04 22:13] VITALS: BP 111/73; PULSE 92; RESP 17; TEMP 35.9; O2SAT 97; BMI 32.4
[2020-01-04 22:14] VITALS: PULSE 85; RESP 12; O2SAT 98
--- NOTE | 2020-01-04 22:58 | ED.VIS.GEN ---
History of Present Illness Chief Complaint: ETOH Intox Informant: Patient, Friend Narrative: Drank a bottle of vodka tonight. Boyfriend stated that she checked it. She stated that she no longer wants to drink again. She is intoxicated with alcohol. This happened just a few hours ago. She had one episode of emesis. History of seizures in the past with no seizure activity. There is been no trauma. He brought her in because she was too drunk. Current severity is moderate. - Past Medical History (1) Breakthrough seizure Status: Acute (2) Bulging lumbar disc Status: Acute (3) Dichorionic diamniotic twin in second trimester Status: Acute (4) Dichorionic diamniotic twin in third trimester Status: Acute (5) Epilepsy affecting in second trimester Status: Acute (6) IUGR (intrauterine growth restriction) affecting care of mother Status: Acute (7) Status: Acute (8) Status post seizure Status: Acute (9) Anxiety and depression Status: Chronic (10) Depression Status: Chronic (11) Epilepsy Status: Chronic (12) GERD (gastroesophageal reflux disease) Status: Chronic (13) Seizure disorder Status: Chronic Past Medical History - Allergies and Home Meds Allergies/Adverse Reactions: Allergies lactose Adverse Reaction (Verified 01/04/20 22:12) Upset Stomach tomato Adverse Reaction (Verified 01/04/20 22:12) Vomiting Primary Care Physician: Alexis Bonds MD [STAFF PHYSICIAN] - Prior records reviewed: Yes Past Medical History: - - See problem list Surgical History: noncontributory Lives: With Family Smoking Status: Current every day smoker Alcohol: Occasional Drugs: None Review of Systems General: Denies: Chills, Fever, Sweats Eyes: Denies: Visual changes - bilaterally, Diplopia ENT: Denies: Rhinorrhea, Sore throat Cardiovascular: Denies: Chest pain, Palpitations Respiratory: Denies: Dyspnea, Cough, Dyspnea on exertion Gastrointestinal: Reports: Nausea, Vomiting. Denies: Abdominal pain, Diarrhea, Melena, Hematochezia Genitourinary: Denies: Dysuria, Hematuria, Frequency Musculoskeletal: Denies: Back pain, Extremity Pain Skin: Denies: Rash, Wounds Neurological: Denies: Headache, Weakness, Numbness Physical Exam Vital Signs/Narrative: Vital Signs Temp Pulse Resp BP Pulse Ox 01/04/20 22:14 85 12 98 01/04/20 22:13 96.7 F L 92 17 111/73 97 General: Well nourished, Well developed, No Acute Distress Head: Normocephalic, Atraumatic Eyes: Perrl, EOMI ENT: Moist mucous membranes, No rhinorrhea Neck: Supple, Nontender Cardiovascular: Regular rate, Regular rhythm, No murmurs Respiratory: No distress, CTA bilaterally, Chest nontender Abdomen: Soft, Nontender, Nondistended, Normal bowel sounds Back: Nontender, Normal Inspection Extremities: Nontender, No edema Skin: Normal color, No rash Neurological: Alert, Cranial nerves II-XII grossly intact, Normal Strength, Normal Sensation, - - And is intoxicated with alcohol. She awakens and is tearful Psychological: Tearful Diagnostic/Tx/Re-eval - Medical Decision Making Monitored in the emergency department. Given IV fluid boluses as well as Zofran. Patient will be discharged upon emerging sobriety.. I do not feel she needs a CT of her head. The patient was able to ambulate to the bathroom after treatment and monitoring and metabolism of the alcohol. Tolerated orals. I feel she can be discharged with her boyfriend ED Disposition - Plan for ED Patient: Diagnosis: Alcohol intoxication Instructions: ED INTOXICATION Alcohol Prescriptions: Ondansetron [Zofran Odt] 8 mg PO Q8H PRN PRN #20 tab PRN Reason: Nausea Transmission Status: Received by [facility] #[id number] Referrals: Alexis Bonds MD [STAFF PHYSICIAN] -
[2020-01-04] MEDS: Ondansetron 4 MG/2 ML Vial IV (23:32)
[2020-01-04] MEDS: 0.9% Normal Saline 1,000 ML 1000 ML IV (23:32)
[2020-01-05 00:40] VITALS: BP 121/60; PULSE 87; RESP 16; O2SAT 95
== END 2020-01-05 00:41 | disposition home or self-care (01) ==
PROVIDERS: Emergency Provider Emergency Medicine
DX: F10.129 Alcohol abuse with intoxication, unspecified (principal); F17.200 Nicotine dependence, unspecified, uncomplicated
CPT/HCPCS: 99285; J7030; A4216; J2405

== ENCOUNTER 2020-02-06 07:48 | Emergency (ER) | payer MEDICAID, SELFPAY ==
[2020-01-30 10:45] VITALS: BMI 32.4
[2020-02-06 07:50] VITALS: BP 136/69; PULSE 108; RESP 13; TEMP 36.8; O2SAT 99; BMI 28.5
--- NOTE | 2020-02-06 08:00 | EKG12_ITS ---
Test Reason : SEIZURE Blood Pressure : / mmHG Vent. Rate : 085 BPM Atrial Rate : 085 BPM P-R Int : 144 ms QRS Dur : 082 ms QT Int : 342 ms P-R-T Axes : 049 063 039 degrees QTc Int : 406 ms Normal sinus rhythm Normal ECG Confirmed by JOAQUIN MUELLER, CLAUDIA ([id number]), metropolitan editor HOSEA GOLD ([id number]) on 02/09/2020 9:06:26 AM Referred By: CL Confirmed By:RTISTA NUÑEZ MD
--- NOTE | 2020-02-06 08:00 | CT_ITS ---
STUDY: CT BRAIN WITHOUT CONTRAST REASON FOR EXAM: Female, 29 years old. EPILEPSY, SZ WITH HEAD INJURY, TAKE NO MEDS FOR SZ, HAS ABRASION/BUMP ON LT FOREHEAD/CHEEK, REPEATS D/T MOTION RADIATION DOSAGE (If Supplied By Facility): CTDIvol = ( 60.81 ) mGy, DLP = ( 2088.55 ) mGycm TECHNIQUE: Transaxial CT imaging of the brain was performed without administration of intravenous contrast material. Individualized dose optimization techniques were used for this CT. COMPARISON: No relevant priors. FINDINGS: Small scalp hematoma overlying the left frontal bone. Normal calvarium. Normal size ventricles and extra-axial spaces for the patient''s age. Normal white matter tracts of the cerebral hemispheres. Normal basal ganglia and thalami. Normal brainstem. Normal cerebellum. There is no intracranial hemorrhage. There are no findings of an acute ischemic infarction. Normal visualized paranasal sinuses. CT/Brain/Head without Contrast IMPRESSION: Small scalp hematoma overlying the left frontal bone. Electronically Signed: Jaime Tabor, at 8:47 EDT , Service support ,
--- NOTE | 2020-02-06 08:02 | ED.DCSUM_ITS ---
History of Present Illness Chief Complaint: Seizure Informant: Patient Narrative: 29-year-old female brought in by EMS with concern for seizure activity. Report from EMS was a 5-minute tonic-clonic seizure. Patient states that she does have a past medical history of seizures however does not follow with neurologist and does not take any medications. States that her medications have not worked for her in the past. States that she takes a caffeine pill daily which she feels helps with her seizures. Otherwise patient cannot provide a history of what happened this morning other than she remembers waking up and nothing further. [place] any drugs or alcohol. Denies any current headache, vision change, fever, chills, neck pain. Past Medical History - Allergies and Home Meds Allergies/Adverse Reactions: Allergies lactose Adverse Reaction (Verified 02/06/20 07:53) Upset Stomach tomato Adverse Reaction (Verified 02/06/20 07:53) Vomiting Primary Care Physician: Adela Savage MD [STAFF PHYSICIAN] - Prior records reviewed: Yes Past Medical History: - - seizures Surgical History: noncontributory Lives: Friends Smoking Status: Current every day smoker Alcohol: Occasional Drugs: None Review of Systems General: Denies: Chills, Fever, Sweats Eyes: Denies: Visual changes - bilaterally, Diplopia ENT: Denies: Rhinorrhea, Sore throat Cardiovascular: Denies: Chest pain, Palpitations Respiratory: Denies: Dyspnea, Cough, Dyspnea on exertion Gastrointestinal: Denies: Abdominal pain, Nausea, Vomiting, Diarrhea, Melena, Hematochezia Genitourinary: Denies: Dysuria, Hematuria, Frequency Musculoskeletal: Denies: Back pain, Extremity Pain Skin: Denies: Rash, Wounds Neurological: Reports: - - seizure. Denies: Headache, Weakness, Numbness Physical Exam Vital Signs/Narrative: Vital Signs Temp Pulse Resp BP Pulse Ox 02/06/20 07:50 98.2 F 108 H 13 136/69 H 99 Inital Vital Signs reviewed: Yes General: Well nourished, Well developed, No Acute Distress Head: Normocephalic, Atraumatic Eyes: Perrl, EOMI ENT: Moist mucous membranes, No rhinorrhea Neck: Supple, Nontender Cardiovascular: Regular rate, Regular rhythm, No murmurs Respiratory: No distress, CTA bilaterally, Chest nontender Abdomen: Soft, Nontender, Nondistended, Normal bowel sounds Back: Nontender, Normal Inspection Extremities: Nontender, No edema Skin: Normal color, No rash, - - abrasions to the forehead and left cheek Neurological: Alert, Oriented x3, Cranial nerves II-XII grossly intact, Normal Strength, Normal Sensation, - Psychological: Normal affect, Normal Mood Diagnostic/Tx/Re-eval Clinical Impression(s) from Imaging Studies Brain CT 02/06/20 08:00 IMPRESSION: Small scalp hematoma overlying the left frontal bone. Electronically Signed: Jaime Tabor, at 8:47 EDT , Service support , Laboratory Data 02/06/20 02/06/20 02/06/20 08:00 08:00 08:00 WBC 8.9 RBC 4.45 Hgb 13.2 Hct 41.1 MCV 92.4 MCH 29.7 MCHC 32.1 RDW Std Deviation 49.7 H RDW Coeff of Abiodun 14.6 Plt Count 310 MPV 9.4 Immature Gran % (Auto) 0.300 Neut % (Auto) 59.3 Lymph % (Auto) 27.4 Cross % (Auto) 8.3 Eos % (Auto) 4.0 Baso % (Auto) 0.7 Absolute Neuts (auto) 5.3 Absolute Lymphs (auto) 2.44 Nucleated RBC % 0 Sodium 143 Potassium 4.1 Chloride 112 H Carbon Dioxide 26.0 Anion Gap 5 BUN 14 Creatinine 0.93 Estim Creat Clear Calc 93.28 Est GFR (MDRD) Af Amer 91 Est GFR (MDRD) Non-Af 75 BUN/Creatinine Ratio 15.0 Glucose 65 L Calcium 8.3 L Total Bilirubin 0.20 AST 5 L ALT 18 Alkaline Phosphatase 82 Total Protein 7.2 Albumin 3.6 Globulin 3.6 Albumin/Globulin Ratio 1.0 Urine Color Urine Clarity Urine pH Ur Specific [place] Urine Protein Urine Glucose (UA) Urine Ketones Urine Occult Blood Urine Nitrite Urine Bilirubin Urine Urobilinogen Ur Leukocyte Esterase Urine RBC Urine WBC Ur Squamous Epith Cells Urine Bacteria Urine Mucus Urine Test Urine Opiates Screen Urine Methadone Screen Ur Barbiturates Screen Ur Phencyclidine Scrn Ur Amphetamines Screen U Methamphetamin-MDMA U Benzodiazepines Scrn Urine Cocaine Screen U Cannabinoids Screen Ur Drug Screen Comment Ethyl Alcohol 3.0 02/06/20 02/06/20 02/06/20 09:05 09:05 09:05 WBC RBC Hgb Hct MCV MCH MCHC RDW Std Deviation RDW Coeff of Abiodun Plt Count MPV Immature Gran % (Auto) Neut % (Auto) Lymph % (Auto) Cross % (Auto) Eos % (Auto) Baso % (Auto) Absolute Neuts (auto) Absolute Lymphs (auto) Nucleated RBC % Sodium Potassium Chloride Carbon Dioxide Anion Gap BUN Creatinine Estim Creat Clear Calc Est GFR (MDRD) Af Amer Est GFR (MDRD) Non-Af BUN/Creatinine Ratio Glucose Calcium Total Bilirubin AST ALT Alkaline Phosphatase Total Protein Albumin Globulin Albumin/Globulin Ratio Urine Color Yellow Urine Clarity Sl. Cloudy Urine pH 7.0 Ur Specific [place] 1.015 Urine Protein 15 H Urine Glucose (UA) 250 H Urine Ketones 5 H Urine Occult Blood Negative Urine Nitrite Negative Urine Bilirubin Negative Urine Urobilinogen Normal Ur Leukocyte Esterase Negative Urine RBC 0 SEEN Urine WBC 0 SEEN Ur Squamous Epith Cells 0-5 SEEN Urine Bacteria RARE Urine Mucus 0 SEEN Urine Test Negative Urine Opiates Screen NEGATIVE Urine Methadone Screen NEGATIVE Ur Barbiturates Screen NEGATIVE Ur Phencyclidine Scrn NEGATIVE Ur Amphetamines Screen NEGATIVE U Methamphetamin-MDMA NEGATIVE U Benzodiazepines Scrn NEGATIVE Urine Cocaine Screen NEGATIVE U Cannabinoids Screen NEGATIVE Ur Drug Screen Comment Ethyl Alcohol - Rhythm Strip Rhythm Strip: Sinus Rhythm Rate: 85 Ectopy: None - EKG Initial EKG Interpretation: Sinus Rhythm - Normal sinus rhythm at 85 bpm. WA interval of 144 ms. QTC of 406 ms. No evidence of ST elevation or depression at this time. - Medical Decision Making Patient appears well nontoxic. Evidence of abrasions to the left forehead and cheek. CT brain negative. Lab work within normal limits including negative EKG. Patient had her wounds cleansed and bacitracin was placed. Patient was given tetanus. After extensive discussion with the patient she wishes to be discharged home. I did offer her admission given that she had a breakthrough seizure and has not been taking any medication. She insists that the caffeine pills that she has been taking will be sufficient. Patient is alert and oriented x3 and no evidence of being postictal. Patient's significant other is at the bedside for this conversation. Patient will be given neurologic follow- up and asked to return at any time for reevaluation. Stable at time of discharge. Pression: 1. Breakthrough seizure 2. Facial abrasion 3. Closed head injury ED Disposition - Plan for ED Patient: Disposition: Home or Assisted Living Instructions: ED Seizure Recurrent Adult Referrals: Adela Savage MD [STAFF PHYSICIAN] - Timoteo Pratt MD [STAFF PHYSICIAN] -
[2020-02-06 08:18] LABS: Absolute Lymphocyte Count 2.44 X10^3/uL (0.83-4.51); Absolute Neutrophil Count 5.3 X10^3/uL (2.0-7.7); Basophil# 0.06 X10^3/uL; Basophil% 0.7 % (0-1); Eosinophil# 0.36 X10^3/uL; Hematocrit 41.1 % (37-47); Hemoglobin 13.2 g/dL (12.0-15.0); Lymphocyte # 2.44 X10^3/ul (4.0); Lymphocyte % 27.4 % (19-41); Mean Corp Hgb Conc 32.1 g/dL (32-36); Mean Corpuscular Hgb 29.7 pg (27.0-32.0); Mean Corpuscular Volume 92.4 fL (81-99); Mean Platelet Vol. 9.4 fl (6.2-12.0); Monocyte# 0.74 X10^3/uL; Monocyte% 8.3 % (0-10); NRBC Flagged by Analyzer 0 % (0-5); Neutrophil # 5.28 X10^3/uL (2.7-7.7); Neutrophil % 59.3 % (47-70); Platelet Count 310 K/mm3 (150-450); RBC Distribution Width CV 14.6 % (11.6-14.6); RBC Distribution Width SD 49.7 fl (35.1-43.9); Red Blood Count 4.45 M/mm3 (4.2-5.4); White Blood Count 8.9 K/mm3 (4.4-11.0)
[2020-02-06 08:34] LABS: AST(SGOT) 5 U/L (15-37); Alanine Aminotransfer ALT/SGPT 18 U/L (13-56); Albumin, Serum 3.6 g/dL (3.2-5.0); Alkaline Phosphatase 82 U/L (45-117); Anion Gap 5 (5-15); BUN 14 mg/dL (7-18); Calcium,Total 8.3 mg/dL (8.5-10.1); Chloride 112 mmol/L (98-107); Creatinine, Serum 0.93 mg/dL (0.55-1.02); EST Glomerular Filtration Rate 75 mL/min (>60); Est Glom Filt Rate - Afr Amer 91 mL/min (>60); Estimated Creatinine Clearance 93.28 ml/min; Globulin 3.6 g/dL (2.2-4.2); Glucose 65 mg/dL (74-106); Potassium 4.1 mmol/L (3.5-5.1); Protein, Total 7.2 g/dL (6.4-8.2); Sodium Level 143 mmol/L (136-145)
[2020-02-06] MEDS: Diphth,Pertuss(Acell),Tet Vac 0.5 ML Vial IM (08:35)
[2020-02-06] MEDS: Dextrose 50%-Water 25 GM/50 ML DISP.SYRIN IV (08:37)
[2020-02-06 09:00] VITALS: PULSE 77; RESP 18
[2020-02-06 09:13] LABS: Mucous, Urine 0 SEEN /hpf (<or=2+); Red Blood Cells-Urine 0 SEEN /hpf (0-5); White Blood Cells 0 SEEN /hpf (0-5)
[2020-02-06 09:17] LABS: Internal QC Validated? YES +Cl - CLEAR BKGD
[2020-02-06 09:19] LABS: Color, Urine Yellow (Yellow); Glucose, Dipstick 250 mg/dl (Normal); Ketone-Dipstick 5 mg/dl (Negative); Leukocyte Esterase-Dipstick Negative /ul (Negative); Nitrite-Dipstick Negative (Negative); Occult Blood-Urine Negative /ul (Negative); Protein-Dipstick 15 mg/dl (Negative); Specific Gravity, Urine 1.015 (1.002-1.030); Urine Bilirubin Dipstick Negative (Negative); Urine Clarity Sl. Cloudy (Clear); Urine Urobilinogen Normal (Normal)
[2020-02-06 09:20] LABS: Pregnancy, Urine Negative Negative
[2020-02-06 09:24] LABS: Bacteria RARE /hpf (None Seen); Squamous Epithelial Cells - UA 0-5 SEEN /hpf (5-10)
[2020-02-06 09:31] LABS: Amphetamine Urine VISTA NEGATIVE (<1000 ng/mL); Barbiturate Urine VISTA NEGATIVE (< 200 ng/mL); Benzodiazepine Urine VISTA NEGATIVE (< 200 ng/mL); Cocaine Urine VISTA NEGATIVE (< 300 ng/mL); Ecstacy Urine VISTA NEGATIVE (< 500 ng/mL); Methadone Urine VISTA NEGATIVE (< 300 ng/mL); PCP Urine VISTA NEGATIVE (< 25 ng/mL); THC Urine VISTA NEGATIVE (< 50 ng/mL); Vista UDS pH Range 6
[2020-02-06] MEDS: Acetaminophen 500 MG Tablet 1000 MG PO (10:45)
[2020-02-06 10:53] VITALS: BP 114/67; PULSE 91; RESP 18; O2SAT 97
[2020-02-06 10:55] LABS: Bedside Glucose 90 mg/dL (70-110)
== END 2020-02-06 10:54 | disposition home or self-care (01) ==
PROVIDERS: Emergency Provider Emergency Medicine
DX: G40.89 Other seizures (principal); S00.81XA Abrasion of other part of head, initial encounter; S09.90XA Unspecified injury of head, initial encounter; X58.XXXA Exposure to other specified factors, initial encounter
CPT/HCPCS: 70450; 80053; 80307; 80320; 81001; 81025; 82962; 85025; 90471; 90715; 93005; 96374; 99285; J7030; A4216; G0480

== ENCOUNTER 2020-02-07 13:38 | Emergency (ER) | payer MEDICAID, SELFPAY ==
[2020-02-06 07:50] VITALS: BMI 28.5
[2020-02-07 13:39] VITALS: BP 122/58; PULSE 100; RESP 18; TEMP 36.5; O2SAT 97; BMI 26.6
--- NOTE | 2020-02-07 14:14 | CT_ITS ---
STUDY: CT FACIAL BONES WITHOUT CONTRAST REASON FOR EXAM: Female, 29 years old. LT EYE SWELLING AND PAIN/CHANG SECONDARY TO INJURY FROM SEIZURE 02/06/20. Pt had noncontrast brain study through ER yesterday RADIATION DOSAGE (If Supplied By Facility): CTDIvol = ( 29.38 ) mGy, DLP = ( 598.88 ) mGycm TECHNIQUE: The patient was scanned in a multi detector CT scanner. Sagittal and coronal images were reconstructed. Individualized dose optimization techniques were used for this CT. COMPARISON: None. FINDINGS: Normal soft tissue structures. Normal orbital flannery and orbital contents. Normal nasal bones and anterior nasal spine. Normal facial bones. There is no demonstrated fracture. Normal visualized paranasal sinuses. CT/Sinus/Facial Bone IMPRESSION: Normal unenhanced CT of the facial bones. Electronically Signed: Jaime Tabor, at 15:22 EDT , Service support ,
--- NOTE | 2020-02-07 14:15 | ED.VIS.GEN ---
History of Present Illness Chief Complaint: Eye Problem Detail of Chief Complaint: Left eye pain and facial swelling Informant: Patient Onset: Yesterday Current Severity: Moderate Maximum Severity: Moderate Narrative: Patient presents with continued left facial pain and swelling. She was seen yesterday morning after seizure. Head CT was unremarkable. She states she woke this morning with left facial swelling and her eye was swollen shut. - Past Medical History (1) Anxiety and depression Status: Chronic (2) Epilepsy Status: Chronic (3) GERD (gastroesophageal reflux disease) Status: Chronic Past Medical History - Allergies and Home Meds Allergies/Adverse Reactions: Allergies lactose Adverse Reaction (Verified 02/07/20 14:06) Upset Stomach tomato Adverse Reaction (Verified 02/07/20 14:06) Vomiting Primary Care Physician: Care Physician,No Primary [Primary Care Provider] - Prior records reviewed: Yes Surgical History: noncontributory Lives: Spouse/ Significant Other Smoking Status: Current every day smoker Review of Systems General: Denies: Chills, Fever Eyes: Denies: Visual changes - bilaterally ENT: Reports: - - Left facial pain. Denies: Bilateral ear pain Cardiovascular: Denies: Chest pain Respiratory: Denies: Dyspnea, Cough Gastrointestinal: Denies: Abdominal pain, Nausea, Vomiting, Diarrhea Skin: Reports: Wounds Neurological: Reports: Headache Allergy: Denies: Uticaria Physical Exam Vital Signs/Narrative: Vital Signs Temp Pulse Resp BP Pulse Ox 02/07/20 13:39 97.7 F L 100 18 122/58 H 97 Inital Vital Signs reviewed: Yes General: Well nourished, Well developed Head: - - Abrasions to the left forehead and left maxilla. Eyes: Perrl, EOMI ENT: Moist mucous membranes Neck: Supple Cardiovascular: Regular rate, Regular rhythm Respiratory: No distress, CTA bilaterally Abdomen: Soft, Nontender Extremities: - - Ecchymosis to the posterior left shoulder Neurological: Alert, Oriented x3, Normal Strength, Normal Sensation Psychological: Normal affect Diagnostic/Tx/Re-eval Impressions Facial/Sinus 02/07/20 14:14 IMPRESSION: Normal unenhanced CT of the facial bones. Electronically Signed: Jaime Tabor, at 15:22 EDT , Service support , 02/07/20 14:14 CT Facial [Sinus/Facial Bone] [CT] Stat - Medical Decision Making Fluorescein was applied to the left eye with no evidence of uptake. CT scan of the facial bones is unremarkable. Patient was encouraged to continue head elevation and ice packs to the area. There is no sign of infection of the wounds at this time. It is reiterated that she is to follow-up with neurology for outpatient evaluation. ED Disposition - Plan for ED Patient: Disposition: Home or Assisted Living Diagnosis: Facial contusion Instructions: ED CONTUSION Face No Wake Up] Referrals: Timoteo Pratt MD [STAFF PHYSICIAN] - As soon as possible
[2020-02-07] MEDS: Fluorescein 1 MG STRIP 1 STRIP LEFT EYE (15:06)
== END 2020-02-07 16:01 | disposition home or self-care (01) ==
PROVIDERS: Emergency Provider Emergency Medicine
DX: S00.83XA Contusion of other part of head, initial encounter (principal); F17.200 Nicotine dependence, unspecified, uncomplicated; X58.XXXA Exposure to other specified factors, initial encounter; F32.9 Major depressive disorder, single episode, unspecified; F41.9 Anxiety disorder, unspecified
CPT/HCPCS: 70486; 99283

== ENCOUNTER 2020-02-18 12:38 | Emergency (ER) | payer MEDICAID, SELFPAY ==
[2020-02-18 12:40] VITALS: BP 132/83; PULSE 101; RESP 18; TEMP 36.4; O2SAT 98; BMI 26.6
--- NOTE | 2020-02-18 12:55 | ED.VIS.BACK ---
History of Present Illness Informant: Patient Onset: Month(s) - 2 months Context: Sudden Onset Chronic pain exacerbated by: fall Injury: Fall Timing: Continuous Quality: Sharp Location: Lumbar Current Severity: Moderate Maximum Severity: Severe Worsened by: improves with: Movement, Ambulation, Bending Relieved by: Remaining Still Narrative: 29-year-old female with a history of epilepsy presents with back pain. She was seen here about 2 months ago. She had a fall at that time injuring her back. CT scan done in the emergency department showed an L5-S1 disc bulge without herniation. She followed up several weeks later for an outpatient MRI which showed the same. There was no herniation. No worsening since the CT scan that she had done a few weeks prior to that. She has been having back pain since that time. The patient has not had any other falls where she landed on her back she did have a seizure where she was seen here about 10 days ago when she fell face first but she states she did not hit her back at that time. The pain is in her back, lumbar area. It is constant. It does not radiate. It is worse with movement and ambulation. It is mildly better with rest. She is been using naproxen without improvement. No lower extremity numbness tingling or weakness. She has not lost control of her bowel or bladder function. She denies any constipation or urinary retention symptoms. She has not had a fever. Denies IV drug abuse Prior similar symptoms: Yes, With Prior Back Pain Recent Illness/Hospitalization: No <John Rhodes - Last Filed: 02/18/20 13:01> <Sharon Quispe - Last Filed: 02/18/20 13:30> Chief Complaint: Back Past Medical History Prior records reviewed: Yes Past Medical History: - - epilepsy Surgical History: noncontributory Lives: With Family Smoking Status: Current every day smoker Alcohol: None Drugs: None <John Rhodes - Last Filed: 02/18/20 13:01> <Sharon Quispe - Last Filed: 02/18/20 13:30> - Allergies and Home Meds Allergies/Adverse Reactions: Allergies lactose Adverse Reaction (Verified 02/18/20 12:42) Upset Stomach tomato Adverse Reaction (Verified 02/18/20 12:42) Vomiting Primary Care Physician: Wayne Drew MD [STAFF PHYSICIAN] - Review of Systems All systems negative except as indicated General: Denies: Chills, Fever, Sweats Eyes: Denies: Visual changes - bilaterally, Diplopia ENT: Denies: Rhinorrhea, Sore throat Cardiovascular: Denies: Chest pain, Palpitations Respiratory: Denies: Dyspnea, Cough, Dyspnea on exertion Gastrointestinal: Denies: Abdominal pain, Nausea, Vomiting, Diarrhea, Constipation, Melena, Hematochezia Genitourinary: Denies: Dysuria, Hematuria, Frequency Musculoskeletal: Reports: Back pain. Denies: Myalgias, Arthralgias, Neck pain, Swelling, Extremity Pain Skin: Denies: Rash, Wounds Neurological: Denies: Headache, Weakness, Parasthesia, Numbness <John Rhodes - Last Filed: 02/18/20 13:01> Physical Exam Vital Signs/Narrative: Vital Signs Temp Pulse Resp BP Pulse Ox 02/18/20 12:40 97.5 F L 101 H 18 132/83 H 98 Inital Vital Signs reviewed: Yes General: Well nourished, Well developed Head: Normocephalic, Atraumatic Eyes: Perrl, EOMI ENT: Moist mucous membranes, No rhinorrhea Neck: Supple, Nontender Cardiovascular: Regular rate, Regular rhythm, No murmurs Respiratory: No distress, CTA bilaterally, Chest nontender Abdomen: Soft, Nontender, Nondistended, Normal bowel sounds Back: Normal Inspection, Nontender, Paraspinal Tenderness, Negative SLR - Right, Negative SLR - Left, - - Bilateral lumbar paraspinal pain on palpation. No midline lumbar spinal or thoracic tenderness. Straight leg raise is negative bilaterally. 5 out of 5 strength testing of both lower extremities at the hip knee and ankle joints. Normal DP and PT pulses bilateral that are symmetrical. Her sensation in both lower extremities is normal and symmetrical. She is ambulatory without difficulty.. Negative for: Spinal tenderness Extremeties: Nontender, No edema Skin: Normal color, No rash Neuro: Alert, Oriented, Normal Strength, Normal Sensation, Normal DTR, Normal Gait, Normal Reflexes Psychological: Normal affect <John Rhodes - Last Filed: 02/18/20 13:01> Vital Signs/Narrative: Vital Signs Temp Pulse Resp BP Pulse Ox 02/18/20 12:40 97.5 F L 101 H 18 132/83 H 98 <Sharon Quispe - Last Filed: 02/18/20 13:30> Diagnostic/Tx/Re-eval - Medical Decision Making Reviewed patient's records she had a CT scan done in November in the emergency department that showed a L5-S1 disc bulge. No fractures or herniation were noted. She followed up a few weeks later for an MRI. Showed no worsening of symptoms, it showed L5-S1 bulge without herniation no other acute findings. Patient on exam has no focal neurologic deficit that would require an emergent MRI today in the emergency department. She will be given prednisone and Flexeril and will be referred to a primary care physician to establish for follow-up <John Rhodes - Last Filed: 02/18/20 13:01> - Medical Decision Making Patient seen and evaluated with physicians general office assistant. Patient independently interviewed and examined. Patient presents with low back pain. She had a fall a few months ago. Imaging studies revealed disc bulge but no herniation. Patient does have history of seizures and has had a couple seizures since that time. She states she continues to have low back pain with spasms. She does report pain radiating down to her calves bilaterally. No loss of bowel or bladder control. Patient sitting upright in bed no acute distress. Head and neck examination reveals healing abrasions to the left face. Heart is regular rate and rhythm. Lung sounds are clear. Abdomen is soft nontender. Back examination reveals tenderness throughout the lumbar paraspinal muscles bilaterally. No overlying skin changes. Neuro exam unremarkable. Patient is already on naproxen. She will be given muscle relaxers as well as steroids. She is encouraged to follow-up with local PCP as well as the local neurologist. <Sharon Quispe - Last Filed: 02/18/20 13:30> ED Disposition <John Rhodes - Last Filed: 02/18/20 13:01> <Sharon Quispe - Last Filed: 02/18/20 13:30> - Plan for ED Patient: Disposition: Home or Assisted Living Diagnosis: Bulging lumbar disc, Lumbar back pain, Epilepsy Instructions: ED Back Pain Acute or Chronic Prescriptions: Prednisone [Deltasone] 40 mg PO DAILY #10 tab Prescription Printed cycloBENZAPRine HCl [Flexeril] 10 mg PO TID PRN #20 tab PRN Reason: Muscle Spasm Prescription Printed Referrals: Wayne Drew MD [STAFF PHYSICIAN] -
[2020-02-18] MEDS: predniSONE 20 MG Tablet 60 MG PO (13:23)
[2020-02-18] MEDS: cycloBENZAPRine HCl 10 MG Tablet PO (13:24)
[2020-02-18 13:29] VITALS: BP 118/80; PULSE 89; RESP 15
== END 2020-02-18 13:29 | disposition home or self-care (01) ==
LOC: ED 13:09
PROVIDERS: Emergency Provider Physician Assistant Medical
DX: M51.26 Other intervertebral disc displacement, lumbar region (principal); G40.909 Epilepsy, unspecified, not intractable, without status epilepticus; F17.200 Nicotine dependence, unspecified, uncomplicated; W19.XXXA Unspecified fall, initial encounter
CPT/HCPCS: 99283

== ENCOUNTER 2020-02-21 07:56 | Emergency (ER) | payer MEDICAID, SELFPAY ==
[2020-02-21 08:00] VITALS: BP 125/53; PULSE 103; RESP 16; TEMP 36.8; O2SAT 98; BMI 28.6
--- NOTE | 2020-02-21 08:12 | ED.RN ---
pt talking and texting on phone. pt with no post ictal symptoms obs. stated, dont remember and not offering much background. pavel reported that noncompliant and didnt want to come in today but has had numerous calls recently for same.
--- NOTE | 2020-02-21 08:35 | ED.VIS.GEN ---
History of Present Illness Chief Complaint: Seizure Informant: Patient, Significant Other Narrative: Patient is a 29-year-old female with a past medical history of seizure disorder who presents to emergency department for a 5-minute episode witnessed seizure. She does not want to have a work-up completed. She states that she does not want to be in the emergency department. This is her fourth seizure this month. She does not take antiepileptic medications. She has been on them previously but she states that these have caused her to seize before in the past. She does not currently follow with a neurologist as her neurologist left the area. She currently denying any headache, vision changes. No chest pain or shortness of breath. No abdominal pain. No back pain. No injury to her extremities. She not bite her tongue/cheek. She denies an episode of incontinence. She does drink multiple beverages of caffeine a day. States she has been sleeping fine recently. Denies any drug abuse. Past Medical History - Allergies and Home Meds Allergies/Adverse Reactions: Allergies lactose Adverse Reaction (Verified 02/18/20 12:42) Upset Stomach tomato Adverse Reaction (Verified 02/18/20 12:42) Vomiting Primary Care Physician: Care Physician,No Primary [Primary Care Provider] - 2 Days Inez Juarez DO [[facility]] - Prior records reviewed: Yes Past Medical History: - - Seizure disorder Surgical History: noncontributory Smoking Status: Current every day smoker Drugs: None Review of Systems All systems negative except as indicated General: Denies: Chills, Fever, Sweats Eyes: Denies: Visual changes - bilaterally, Diplopia ENT: Denies: Rhinorrhea, Sore throat Cardiovascular: Denies: Chest pain, Palpitations Respiratory: Denies: Dyspnea, Cough, Dyspnea on exertion Gastrointestinal: Denies: Abdominal pain, Nausea, Vomiting, Diarrhea Genitourinary: Denies: Dysuria, Hematuria, Frequency Musculoskeletal: Denies: Back pain, Extremity Pain Skin: Denies: Rash, Wounds Neurological: Reports: - - Seizures. Denies: Headache, Weakness, Numbness Physical Exam Vital Signs/Narrative: Vital Signs Temp Pulse Resp BP Pulse Ox 02/21/20 08:00 98.3 F 103 H 16 125/53 H 98 Inital Vital Signs reviewed: Yes General: Well nourished, Well developed, No Acute Distress, - - Patient resting comfortably in bed. Drinking an energy drink. Head: Normocephalic, Atraumatic Eyes: Perrl, EOMI ENT: Moist mucous membranes, No rhinorrhea Neck: Supple, Nontender Cardiovascular: Regular rate, Regular rhythm, No murmurs Respiratory: No distress, CTA bilaterally, Chest nontender Abdomen: Soft, Nontender, Nondistended, Normal bowel sounds Back: Nontender, Normal Inspection Extremities: Nontender, No edema Skin: Normal color, No rash, - - Superficial abrasions over left dorsal hand and wrist. Neurological: Alert, Oriented x3, Cranial nerves II-XII grossly intact, Normal Strength, Normal Sensation Psychological: Normal affect, Normal Mood Diagnostic/Tx/Re-eval - Medical Decision Making Patient presents to the emergency department after a witnessed seizure today. She does have a history of seizure disorder. She is not on any medications. Not follow with a neurologist. Upon arrival to the emergency department vital signs within normal limits. Physical exam is benign. Patient states that she wants to leave and did not want to come to emergency department in the first place. She does not want any work-up performed or treatments at this time. She does appear to have decision making capacity. I did do a MSE. Based on patient's wishes will discharge home in stable condition. I will give her a neurologist to follow-up with. Did discuss return precautions if she wants to have complete work-up. She understands and is agreeable this plan. Will discharge home in stable condition. Did advise to decrease caffeine intake. ED Disposition - Plan for ED Patient: Disposition: Home or Assisted Living Diagnosis: Seizure, Status post seizure Instructions: ED Seizure Recurrent Adult Referrals: Inez Juarez DO [[facility]] - Care Physician,No Primary [Primary Care Provider] - 2 Days Additional Instructions: Dr. Villa, Neurology [phone] -please schedule appointment as soon as possible.
[2020-02-21 08:47] VITALS: RESP 16
== END 2020-02-21 08:48 | disposition home or self-care (01) ==
LOC: ED 08:41
PROVIDERS: Emergency Provider Emergency Medicine
DX: R56.9 Unspecified convulsions (principal); F17.200 Nicotine dependence, unspecified, uncomplicated
CPT/HCPCS: 99284

== ENCOUNTER 2020-02-26 08:26 | Emergency (ER) | payer MEDICAID, SELFPAY ==
[2020-02-22 10:43] VITALS: BMI 28.6
[2020-02-26 08:27] VITALS: BP 130/75; PULSE 112; RESP 16; TEMP 36.4; O2SAT 100; BMI 29.9
[2020-02-26 08:47] LABS: Mucous, Urine 0 SEEN /hpf (<or=2+); White Blood Cells 0 SEEN /hpf (0-5)
[2020-02-26 08:48] LABS: Color, Urine Yellow (Yellow); Glucose, Dipstick Normal (Normal); Ketone-Dipstick 5 mg/dl (Negative); Leukocyte Esterase-Dipstick Negative /ul (Negative); Nitrite-Dipstick Negative (Negative); Occult Blood-Urine 10 /ul (Negative); Protein-Dipstick 15 mg/dl (Negative); Urine Bilirubin Dipstick Negative (Negative); Urine Clarity Sl. Cloudy (Clear); Urine Urobilinogen Normal (Normal)
--- NOTE | 2020-02-26 08:48 | ED.VIS.GEN ---
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 Patient is noncompliant and does not provide much of a history. She is not cooperative with exam. Typically she leaves prior to signing and once EMS brings her into the hospital. She is agreeable to staying for work-up at this time. She is currently a resident at the [facility]. I did call discussed with them what happened this morning. She had a 6 to 8-minute episode of grand mal seizure. This is the fourth seizure she has had at their residence over the past month. She states that she does not take seizure medications because they cause her to have seizures. She does not follow with a neurologist. She states she does take caffeine pills for seizures. She has seizures whenever she does not get enough sleep or she is stressed. The person I talked to her at her current residence states that she was drinking heavily last night. Patient denies any drug use. They did make an appointment with a neurologist for but she cannot get in to them until June 06. She is currently denying any symptoms at this time. Past Medical History - Allergies and Home Meds Allergies/Adverse Reactions: Allergies lactose Adverse Reaction (Verified 02/18/20 12:42) Upset Stomach tomato Adverse Reaction (Verified 02/18/20 12:42) Vomiting Primary Care Physician: Care Physician,No Primary [Primary Care Provider] - Past Medical History: - - Seizure disorder Surgical History: noncontributory Smoking Status: Current every day smoker Review of Systems All systems negative except as indicated General: Denies: Chills, Fever, Sweats Eyes: Denies: Visual changes - bilaterally, Diplopia ENT: Denies: Rhinorrhea, Sore throat Cardiovascular: Denies: Chest pain, Palpitations Respiratory: Denies: Dyspnea, Cough, Dyspnea on exertion Gastrointestinal: Denies: Abdominal pain, Nausea, Vomiting Genitourinary: Denies: Dysuria, Hematuria, Frequency Musculoskeletal: Denies: Back pain, Extremity Pain Skin: Denies: Rash, Wounds Neurological: Reports: - - Seizure. Denies: Headache, Weakness, Numbness Physical Exam Vital Signs/Narrative: Vital Signs Temp Pulse Resp BP Pulse Ox 02/26/20 08:27 97.6 F L 112 H 16 130/75 H 100 Inital Vital Signs reviewed: Yes General: Well nourished, Well developed Head: Normocephalic, Atraumatic Eyes: Perrl, EOMI ENT: Moist mucous membranes Cardiovascular: Regular rate Respiratory: No distress Abdomen: Nondistended Neurological: Alert, Oriented x3, Normal Strength Psychological: - - Patient sitting with her head down refusing to answer most questions. Diagnostic/Tx/Re-eval - Medical Decision Making Patient presents the emerge department for seizures. She has a known seizure disorder but is noncompliant with medications and does not follow with a neurologist. She is has a scheduled appointment but not for a few months. She is agreeable to getting work-up today. Will check basic lab work. Lab work did not reveal a significant acute abnormality. Urine test negative. I did call and speak to Dr. Pratt, the neurologist she is supposed to see in May. He comes to [facility] a month. States he has another office in [place] that he could potentially get her in sooner. He did give me the phone number for her to follow-up with. This was provided to her. Since patient is denying any other medical problems at this time. Neurologist did recommend starting her on oxcarbazepine 150 mg twice daily. He states that this is a difficult case as she does not have a family doctor and has been noncompliant before in the past. Hopefully patient will fill this prescription and start taking. Otherwise patient is nontoxic-appearing. Will discharge home in stable condition at this time. Warning signs and symptoms for which to return to the emerge department are reviewed with her. She understands and is agreeable this plan. ED Disposition - Plan for ED Patient: Disposition: Home or Assisted Living Diagnosis: Seizure Instructions: ED Seizure Recurrent Adult Prescriptions: Oxcarbazepine 150 mg PO BID 30 Days #60 tab Transmission Status: Received by [facility] #30 Referrals: Care Physician,No Primary [Primary Care Provider] - Additional Instructions: Please call [phone] to schedule an appointment with Dr. Pratt. He may be able to see you sooner than May if you are able to go to [place] office.
[2020-02-26 08:52] LABS: Absolute Lymphocyte Count 2.24 X10^3/uL (0.83-4.51); Absolute Neutrophil Count 9.6 X10^3/uL (2.0-7.7); Basophil# 0.07 X10^3/uL; Basophil% 0.5 % (0-1); Eosinophil# 0.33 X10^3/uL; Eosinophils% 2.5 % (0-5); Hematocrit 41.9 % (37-47); Hemoglobin 13.5 g/dL (12.0-15.0); Lymphocyte # 2.24 X10^3/ul (4.0); Lymphocyte % 16.9 % (19-41); Mean Corp Hgb Conc 32.2 g/dL (32-36); Mean Corpuscular Hgb 29.8 pg (27.0-32.0); Mean Corpuscular Volume 92.5 fL (81-99); Mean Platelet Vol. 9.2 fl (6.2-12.0); Monocyte# 0.95 X10^3/uL; Monocyte% 7.2 % (0-10); NRBC Flagged by Analyzer 0 % (0-5); Neutrophil # 9.55 X10^3/uL (2.7-7.7); Neutrophil % 72.1 % (47-70); Platelet Count 280 K/mm3 (150-450); RBC Distribution Width CV 15.2 % (11.6-14.6); RBC Distribution Width SD 51.8 fl (35.1-43.9); Red Blood Count 4.53 M/mm3 (4.2-5.4); White Blood Count 13.3 K/mm3 (4.4-11.0)
[2020-02-26 08:57] LABS: Bacteria 1+ /hpf (None Seen); Red Blood Cells-Urine 0-5 SEEN /hpf (0-5); Squamous Epithelial Cells - UA 0-5 SEEN /hpf (5-10)
[2020-02-26 08:59] LABS: Internal QC Validated? YES +Cl - CLEAR BKGD; Pregnancy, Urine Negative Negative
[2020-02-26 09:05] LABS: Anion Gap 1 (5-15); BUN 22 mg/dL (7-18); BUN/Creat Ratio 28.2 RATIO (10-20); Calcium,Total 8.4 mg/dL (8.5-10.1); Chloride 111 mmol/L (98-107); Creatinine, Serum 0.78 mg/dL (0.55-1.02); EST Glomerular Filtration Rate 92 mL/min (>60); Est Glom Filt Rate - Afr Amer 112 mL/min (>60); Estimated Creatinine Clearance 103.49 ml/min; Glucose 73 mg/dL (74-106); Magnesium 2.1 mg/dL (1.6-2.6); Potassium 4.1 mmol/L (3.5-5.1); Sodium Level 141 mmol/L (136-145)
--- NOTE | 2020-02-26 09:12 | NURSING ---
CALLED [facility] [employer]. DR MEJIAS. HAD TO LEAVE MESSAGE FOR HIM TO CALL OUR ER DOCTOR
--- NOTE | 2020-02-26 09:39 | NURSING ---
LEFT MESSAGE . CALLED [employer]. SHE WILL TEXT
--- NOTE | 2020-02-26 09:44 | ED.RN ---
PT ANGRY. DEMANDING TO GO HOME. THIS RN TOLD PT I COULD NOT HOLD HER. PT DEYANIRA
== END 2020-02-26 10:15 | disposition home or self-care (01) ==
PROVIDERS: Emergency Provider Emergency Medicine
DX: R56.9 Unspecified convulsions (principal); F17.200 Nicotine dependence, unspecified, uncomplicated
CPT/HCPCS: 80048; 81001; 81025; 83735; 85025; 99284

== ENCOUNTER → 2020-03-08 13:55 | Outpatient (CLI) | payer MEDICAID, SELFPAY ==
[2020-02-26 08:27] VITALS: BMI 29.9
[2020-03-09 11:01] LABS: HIV - WCH Non-Reactive (Nonreactive); Hepatitis B Surface Antibody Non-Reactive; Hepatitis C Antibody Non-Reactive (Nonreactive)
[2020-03-12 08:08] LABS: Chlamydia By Nucleic Acid AMP Negative (Negative)
[2020-03-12 10:11] LABS: Gonococcus By Nucleic Acid AMP Negative (Negative)
[2020-03-13 20:47] LABS: HPV Reflexed? NOT INDICATED
[2020-03-14 02:15] LABS: Rapid Plasmin Reagin (RPR) NONREACTIVE (NONREACTIVE)
== END ==
PROVIDERS: Visit Provider Obstetrics & Gynecology
DX: Z11.3 Encounter for screening for infections with a predominantly sexual mode of transmission (principal); Z12.4 Encounter for screening for malignant neoplasm of cervix
CPT/HCPCS: 36415; 86592; 86703; 86706; 86803; 87491; 87591; 88175; G0145

== ENCOUNTER 2020-03-15 20:08 | Emergency (ER) | payer MEDICAID, SELFPAY ==
[2020-03-15 20:09] VITALS: BP 125/81; PULSE 101; RESP 18; TEMP 36.9; O2SAT 99; BMI 28.5
--- NOTE | 2020-03-15 20:24 | ED.DCSUM_ITS ---
- ER Visit Summary Date of Service: 03/15/20 Chief Complaint: [Seizure] History of Present Illness: The patient is a 29 F [presents the emergency department complaint of a seizure that started earlier this evening. Patient was with her boyfriend sitting when she became unresponsive and started seizing which lasted about 5 minutes. Boyfriend called EMS. Patient started seizing again before waking up and this lasted maybe another 5 minutes. Patient does have history of seizures. Patient states that she believes that it is stress- induced today because she found out her stepfather had a heart attack last night and her mother recently in December. Patient states that she has been compliant with her Tegretol occasions which she takes twice a day. She denies recent illness. She denies any fever. She denies sleep deprivation. Patient states that she has seizures almost every week.] Patient was not incontinent of urine or stool. Patient states that the seizures did not seem like her typical seizure but thinks they may be stress-induced. Physical Examination: [HEENT-PERRLA, EOMI. Cranial nerves II through XII grossly intact. TMs clear. Mucous membranes moist. No adenopathy. No evidence of bite wounds to the tongue or mouth. Cardiovascular-regular rate and rhythm without murmur or ectopy Lungs-clear to auscultation, chest wall stable without crepitus or subcu emphysema Abdomen-normoactive bowel sounds, soft, nontender, no rebound or rigidity, no peritoneal signs. neuro ksfq-wppusx-yz-nose and heel ordaz testing within normal limits, negative Romberg, negative , Fundi benign Extremities-intact ?4, normal range of motion, normal pulses, atraumatic] Test Results: BC with it was normal. Chemistries were unremarkable. was negative. Tegretol level was less than 0.5.] Emergency Department Course and Treatment: [Patient was given Tegretol 150 mg p.o. Patient's been on 150 mg twice daily for several weeks and given her low level I will increase her to 300 mg twice a day. Patient will follow-up with her neurologist next month.] Treatment Plan: [Increase Tegretol level to 300 mg twice a day.] Disposition: [Discharged home in stable condition] Impression: [Seizure-recurrent] This note was generated with [employer] software. It may contain incorrect words, spelling, and punctuation that were not noted in review of the chart prior to signing ED Disposition - Plan for ED Patient: Referrals: Care Physician,No Primary [Primary Care Provider] -
[2020-03-15 20:37] LABS: Absolute Lymphocyte Count 3.04 X10^3/uL (0.83-4.51); Absolute Neutrophil Count 6.8 X10^3/uL (2.0-7.7); Basophil# 0.05 X10^3/uL; Basophil% 0.5 % (0-1); Eosinophil# 0.34 X10^3/uL; Eosinophils% 3.1 % (0-5); Hemoglobin 11.6 g/dL (12.0-15.0); Lymphocyte # 3.04 X10^3/ul (4.0); Lymphocyte % 27.5 % (19-41); Mean Corp Hgb Conc 33.1 g/dL (32-36); Mean Corpuscular Hgb 30.4 pg (27.0-32.0); Mean Corpuscular Volume 91.9 fL (81-99); Mean Platelet Vol. 9.8 fl (6.2-12.0); Monocyte# 0.83 X10^3/uL; Monocyte% 7.5 % (0-10); NRBC Flagged by Analyzer 0 % (0-5); Neutrophil # 6.76 X10^3/uL (2.7-7.7); Neutrophil % 61.2 % (47-70); Platelet Count 312 K/mm3 (150-450); RBC Distribution Width CV 14.5 % (11.6-14.6); RBC Distribution Width SD 49.1 fl (35.1-43.9); Red Blood Count 3.81 M/mm3 (4.2-5.4)
[2020-03-15 20:53] LABS: Internal QC Validated? YES +Cl - CLEAR BKGD; Pregnancy, Serum, hCG Quali. NEGATIVE Negative
[2020-03-15 20:55] LABS: Anion Gap 5 (5-15); BUN 17 mg/dL (7-18); Calcium,Total 8.4 mg/dL (8.5-10.1); Chloride 112 mmol/L (98-107); EST Glomerular Filtration Rate 69 mL/min (>60); Est Glom Filt Rate - Afr Amer 84 mL/min (>60); Estimated Creatinine Clearance 86.75 ml/min; Glucose 94 mg/dL (74-106); Potassium 3.7 mmol/L (3.5-5.1); Sodium Level 143 mmol/L (136-145)
[2020-03-15 21:10] LABS: Carbamazepine (Tegretol) < 0.5 ug/mL (4.0-12.0)
--- NOTE | 2020-03-15 21:30 | ED.DEP ---
ED Disposition - Plan for ED Patient: Instructions: ED Seizure Recurrent Adult Prescriptions: Oxcarbazepine 300 mg PO BID #60 tab Transmission Status: Pending to [facility] #30 Referrals: Care Physician,No Primary [Primary Care Provider] -
[2020-03-15] MEDS: OXcarbazepine 150 MG Tablet PO (22:06)
[2020-03-15 22:10] VITALS: BP 121/69; PULSE 89; RESP 24; O2SAT 99
== END 2020-03-15 22:11 | disposition home or self-care (01) ==
LOC: ED 20:30
PROVIDERS: Emergency Provider Emergency Medicine
DX: R56.9 Unspecified convulsions (principal); F17.200 Nicotine dependence, unspecified, uncomplicated; K21.9 Gastro-esophageal reflux disease without esophagitis
CPT/HCPCS: 80048; 80156; 84703; 85025; 99285; A4216

== ENCOUNTER 2020-04-03 06:54 | Emergency (ER) | payer MEDICAID, SELFPAY ==
[2020-04-03 06:55] VITALS: PULSE 124; RESP 18; TEMP 36.6; O2SAT 98; BMI 28.4
--- NOTE | 2020-04-03 07:01 | ED.DCSUM_ITS ---
History of Present Illness Chief Complaint: Seizure Informant: Patient Onset: Today Context: Sudden Onset Current Severity: Mild Maximum Severity: Moderate Narrative: The patient is a 29-year-old female with history of stress-induced seizure that presents to the emergency department with reported seizure. [facility] She was found this morning slumped over in her bed. She thinks that she may have had a seizure. There is no tongue biting or incontinence. There is no postictal period. She states now, she feels back to her baseline. The patient is on Tegretol, and states that she has not missed any of her doses. She denies fever, chills, other systemic symptoms. She is otherwise been in her normal state of health. Prior similar symptoms: Yes Recent Illness/Hospitalization: Yes Past Medical History - Allergies and Home Meds Allergies/Adverse Reactions: Allergies lactose Adverse Reaction (Verified 03/15/20 20:11) Upset Stomach tomato Adverse Reaction (Verified 03/15/20 20:11) Vomiting Primary Care Physician: Care Physician,No Primary [Primary Care Provider] - Prior records reviewed: Yes Past Medical History: - - Reported seizure history, anxiety Surgical History: noncontributory Smoking Status: Current every day smoker Review of Systems General: Denies: Chills, Fever, Sweats Eyes: Denies: Visual changes - bilaterally, Diplopia ENT: Denies: Rhinorrhea, Sore throat Cardiovascular: Denies: Chest pain, Palpitations Respiratory: Denies: Dyspnea, Cough, Dyspnea on exertion Gastrointestinal: Denies: Abdominal pain, Nausea, Vomiting, Diarrhea, Melena, Hematochezia Genitourinary: Denies: Dysuria, Hematuria, Frequency Musculoskeletal: Denies: Back pain, Extremity Pain Skin: Denies: Rash, Wounds Neurological: Denies: Headache, Weakness, Numbness Physical Exam Vital Signs/Narrative: Vital Signs Temp Pulse Resp Pulse Ox 04/03/20 06:55 97.9 F 124 H 18 98 Inital Vital Signs reviewed: Yes General: Well nourished, Well developed, No Acute Distress Head: Normocephalic, Atraumatic Eyes: Perrl, EOMI ENT: Moist mucous membranes, No rhinorrhea Neck: Supple, Nontender Cardiovascular: Regular rate, Regular rhythm, No murmurs Respiratory: No distress, CTA bilaterally, Chest nontender Abdomen: Soft, Nontender, Nondistended, Normal bowel sounds Back: Nontender, Normal Inspection Extremities: Nontender, No edema Skin: Normal color, No rash Neurological: Alert, Oriented x3, Cranial nerves II-XII grossly intact, Normal Strength, Normal Sensation Psychological: Normal affect, Normal Mood Diagnostic/Tx/Re-eval - Medical Decision Making On arrival, the patient is awake and alert. She answers all questions appropriately. She has a GCS of 15. She is not meningitic or encephalopathic. Her neck is supple. She has a reassuring neurologic examination. The patient was given her morning dose of Tegretol and observed. The patient does have follow-up with neurology in 2 weeks. She has been compliant with her medications. She has a documented history. I do not feel any further metabolic work-up is necessary. She is comfortable with this plan of care and will be discharged home. Impression 1. Breakthrough seizure ED Disposition - Plan for ED Patient: Instructions: ED Seizure Recurrent Adult Referrals: Care Physician,No Primary [Primary Care Provider] -
[2020-04-03] MEDS: carBAMazepine 200 MG Tablet 300 MG PO (07:14)
[2020-04-03 07:26] VITALS: RESP 16
== END 2020-04-03 07:26 | disposition home or self-care (01) ==
LOC: ED 07:24
PROVIDERS: Emergency Provider Emergency Medicine
DX: R56.9 Unspecified convulsions (principal); F17.200 Nicotine dependence, unspecified, uncomplicated
CPT/HCPCS: 99285

== ENCOUNTER 2020-04-04 18:24 | Emergency (ER) | payer MEDICAID, SELFPAY ==
[2020-04-03 06:55] VITALS: BMI 28.4
[2020-04-04 18:25] VITALS: BP 140/86; PULSE 119; PULSE 120; RESP 18; TEMP 36.2; O2SAT 96; BMI 28.5
--- NOTE | 2020-04-04 18:35 | RAD_ITS ---
STUDY: X-RAY - RIGHT RADIUS AND ULNA REASON FOR EXAM: Female, 29 years old. RIGHT FOREARM PAIN AFTER MESSING AROUND WITH FRIEND TECHNIQUE: 2 view(s) of the forearm. COMPARISON: None. FINDINGS: There is no demonstrated soft tissue swelling. Normal visualized radius. Normal visualized ulna. RAD/Forearm 2 Views IMPRESSION: Normal x-ray examination of the radius and ulna. Electronically Signed: Korey Schmidt MD at 18:51 EDT , Service support ,
--- NOTE | 2020-04-04 18:42 | ED.VIS.GEN ---
History of Present Illness Chief Complaint: Upper Extremity Injury Onset: Days Context: Sudden Onset Timing: Continuous Quality: Pain Location: Entire right forearm Current Severity: Mild Maximum Severity: Moderate Worsened by: Movement and touch Relieved by: Better with rest Associated Symptoms: Tingling Narrative: Patient is 29-year-old [id number] woman who presents with injury to her right forearm. She states she was messing around with a friend. He is ex-. He did have a move which caused her to have pain. She has no other complaints. Prior similar symptoms: No Recent Illness/Hospitalization: No - Past Medical History (1) Breakthrough seizure Status: Acute (2) Depression Status: Chronic (3) GERD (gastroesophageal reflux disease) Status: Chronic Past Medical History - Allergies and Home Meds Allergies/Adverse Reactions: Allergies lactose Adverse Reaction (Verified 03/15/20 20:11) Upset Stomach tomato Adverse Reaction (Verified 03/15/20 20:11) Vomiting Primary Care Physician: Care Physician,No Primary [Primary Care Provider] - Prior records reviewed: Yes Surgical History: noncontributory Lives: Spouse/ Significant Other, With Family Smoking Status: Current every day smoker Alcohol: Rare Drugs: None Review of Systems General: Denies: Chills, Fever, Subjective, Sweats Cardiovascular: Denies: Chest pain, Palpitations Genitourinary: Denies: Dysuria, Hematuria, Frequency Musculoskeletal: Reports: Swelling, Extremity Pain. Denies: Myalgias, Arthralgias, Neck pain, Back pain Skin: Reports: Wounds - Bruising noted distal dorsal right forearm. Denies: Rash, Abscess, Abrasions Allergy: Denies: Uticaria, Swelling of the mouth, Swelling of the tongue Physical Exam Vital Signs/Narrative: Vital Signs Temp Pulse Resp BP Pulse Ox 04/04/20 18:25 97.1 F L 119 H 18 140/86 H 96 Inital Vital Signs reviewed: Yes General: Well nourished, Well developed, No Acute Distress Head: Normocephalic, Atraumatic Eyes: Perrl, EOMI Cardiovascular: Regular rate, Regular rhythm Respiratory: No distress Extremities: Tenderness Skin: Normal color, No rash, Trauma Neurological: Alert, Oriented x3, Cranial nerves II-XII grossly intact, Normal Strength, Normal Sensation, Normal DTR Psychological: Normal Mood, - - Mood is animated Diagnostic/Tx/Re-eval Chest X-Ray - ED: 2 View, Read by ED Physician, - - 3 view of the right forearm was interpreted by me as negative. There is no fracture, subluxation or dislocation. The be a cyst in the distal ulna. - Medical Decision Making Contusion versus fracture is the differential. X-ray feels no fracture. She was treated with NSAIDs. ED Disposition - Plan for ED Patient: Disposition: Home or Assisted Living Diagnosis: Contusion of right forearm, initial encounter Instructions: ED EXTREMITY CONTUSION Upper Prescriptions: Naproxen [Naprosyn] 500 mg PO BID #14 tab Transmission Status: Pending to [facility] #30 Referrals: Care Physician,No Primary [Primary Care Provider] - Doctor,Your [STAFF PHYSICIAN] - 1 Week if not improving
== END 2020-04-04 19:03 | disposition home or self-care (01) ==
LOC: ED 18:53
PROVIDERS: Emergency Provider Emergency Medicine
DX: S50.11XA Contusion of right forearm, initial encounter (principal); F17.200 Nicotine dependence, unspecified, uncomplicated; R56.9 Unspecified convulsions; X58.XXXA Exposure to other specified factors, initial encounter
CPT/HCPCS: 73090; 99282

== ENCOUNTER 2020-04-07 16:19 | Emergency (ER) | payer MEDICAID, SELFPAY ==
[2020-04-07 16:21] VITALS: BP 143/82; PULSE 113; RESP 15; TEMP 36.2; O2SAT 98; BMI 28.6
--- NOTE | 2020-04-07 16:32 | ED.DCSUM_ITS ---
History of Present Illness Chief Complaint: Upper Extremity Injury Informant: Patient Narrative: 29-year-old female presenting with right wrist and right forearm pain. She was seen for this 3 days ago when she had a twisting injury of her right wrist. She had x-rays performed which were negative. She states she has been icing it is not getting better. She still states that she has pain in the forearm both ulnarly and radially. She states it hurts to pronate and supinate her arm. She has no paresthesias. She has no bruising or swelling. 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 Past Medical History - Allergies and Home Meds Allergies/Adverse Reactions: Allergies lactose Adverse Reaction (Verified 04/07/20 16:19) Upset Stomach tomato Adverse Reaction (Verified 04/07/20 16:19) Vomiting Primary Care Physician: Care Physician,No Primary [Primary Care Provider] - Past Medical History: - - Reviewed and problem list Surgical History: noncontributory Lives: Spouse/ Significant Other Smoking Status: Current every day smoker Alcohol: None Drugs: None Review of Systems General: Denies: Chills, Fever, Sweats Eyes: Denies: Visual changes - bilaterally, Diplopia ENT: Denies: Rhinorrhea, Sore throat Cardiovascular: Denies: Chest pain, Palpitations Respiratory: Denies: Dyspnea, Cough, Dyspnea on exertion Gastrointestinal: Denies: Abdominal pain, Nausea, Vomiting, Diarrhea, Melena, Hematochezia Genitourinary: Denies: Dysuria, Hematuria, Frequency Musculoskeletal: Reports: - - Right wrist and right forearm pain Skin: Denies: Rash, Abscess Neurological: Denies: Headache, Weakness Physical Exam Vital Signs/Narrative: Vital Signs Temp Pulse Resp BP Pulse Ox 04/07/20 16:21 97.1 F L 113 H 15 143/82 H 98 Inital Vital Signs reviewed: Yes General: Well nourished, No Acute Distress Head: Normocephalic, Atraumatic Eyes: Perrl, EOMI Cardiovascular: Regular rate, Regular rhythm Respiratory: No distress, CTA bilaterally Extremities: - - Tenderness to palpation over medial right wrist with tenderness extending up the ulnar aspect of the right forearm. There is no obvious swelling or deformity. Patient also has tenderness of radially. There is no olecranon tenderness. Pain is elicited with pronation and supination. Right hand is neurovascularly intact prescribe refill to all 5 fingers. Skin: Normal color, No rash Neurological: Alert, Oriented x3 Psychological: Normal affect, Normal Mood Diagnostic/Tx/Re-eval Chest X-Ray - ED: 1 View - Medical Decision Making 29-year-old female presenting for repeat evaluation of right wrist pain as well as new right forearm pain. She sustained no new injury. I did re-x-ray her right wrist as well as her forearm and there is no cute fractures or subluxations. Patient was given [place] for pain while in the ED but she will be discharged home with a prescription for Naprosyn. She is put in a cock-up wrist splint. She was given follow-up with the on-call physician. She is counseled on return precautions. Patient stable for discharge at this time. Impression: 1. Right wrist sprain 2. Right forearm sprain ED Disposition - Plan for ED Patient: Instructions: ED Sprain Wrist Prescriptions: Naproxen [Naprosyn] 500 mg PO BID PRN #20 tab Transmission Status: Pending to [facility] #30 Referrals: Care Physician,No Primary [Primary Care Provider] - Connor Milan MD [STAFF PHYSICIAN] -
--- NOTE | 2020-04-07 16:45 | RAD_ITS ---
STUDY: X-RAY - RIGHT WRIST REASON FOR EXAM: Female, 29 years old. PAIN IN WRIST ALONG ULNAR SIDE. PAINFUL TO SUPINATE TECHNIQUE: 3 view(s) of the wrist were obtained. COMPARISON: None. FINDINGS: The bones of the wrist are intact and located. There is negative ulnar variance. Mineralization is normal. Soft tissues are intact. RAD/Wrist min 3 Views IMPRESSION: 1. Negative ulnar variance. Specialty referral is advised. Electronically Signed: Maru Norris, at 17:20 EDT Tel , Service support ,
--- NOTE | 2020-04-07 16:45 | RAD_ITS ---
STUDY: X-RAY - RIGHT RADIUS AND ULNA REASON FOR EXAM: Female, 29 years old. PAIN IN WRIST ALONG ULNAR SIDE. PAINFUL TO SUPINATE TECHNIQUE: 2 view(s) of the forearm. COMPARISON: None. FINDINGS: Radius and ulna are intact and located. Mineralization is normal. There is probably negative ulna variance. Soft tissues are unremarkable. RAD/Forearm 2 Views IMPRESSION: 1. No acute injury. 2. Negative ulnar variance. Specialty referral is advised. Electronically Signed: Maru Norris, at 17:19 EDT Tel , Service support ,
[2020-04-07] MEDS: HYDROcodone Bitartrate/Apap 5/325 Tablet PO (16:58)
== END 2020-04-07 17:52 | disposition home or self-care (01) ==
LOC: ED 17:07
PROVIDERS: Emergency Provider Student in an Organized Health Care Education/Training Program
DX: S63.501A Unspecified sprain of right wrist, initial encounter (principal); F17.200 Nicotine dependence, unspecified, uncomplicated; X50.1XXA Overexertion from prolonged static or awkward postures, initial encounter
CPT/HCPCS: 73090; 73110; 99283

== ENCOUNTER 2020-07-07 12:32 | Emergency (ER) | payer OTHER, MEDICAID, SELFPAY ==
[2020-07-07 12:32] VITALS: BP 158/95; PULSE 100; RESP 16; TEMP 36.2; O2SAT 99; BMI 29.8
--- NOTE | 2020-07-07 12:39 | ED.DCSUM_ITS ---
History of Present Illness Chief Complaint: Fall Informant: Patient Onset: Yesterday Current Severity: Moderate Maximum Severity: Moderate Narrative: Patient presents secondary to back pain after a fall yesterday. Patient states she was at work. She slipped on a plastic lid that someone had dropped on the floor. Her feet went out in front of her and she fell onto her buttocks injuring her lower back. She states she had very mild pain last evening but after waking this morning had significant tightness in her lower back and had difficulty moving. Pain does not radiate down her legs. She is had no problems with bowel or bladder control. - Past Medical History (1) Anxiety and depression Status: Chronic (2) Epilepsy Status: Chronic (3) GERD (gastroesophageal reflux disease) Status: Chronic Past Medical History - Allergies and Home Meds Allergies/Adverse Reactions: Allergies lactose Adverse Reaction (Verified 07/07/20 12:39) Upset Stomach tomato Adverse Reaction (Verified 07/07/20 12:39) Vomiting Primary Care Physician: Care Physician,No Primary [Primary Care Provider] - Prior records reviewed: Yes Surgical History: noncontributory Lives: With Family Smoking Status: Heavy Smoker (>10/day) Review of Systems General: Denies: Chills, Fever Eyes: Denies: Visual changes - bilaterally ENT: Denies: Bilateral ear pain Cardiovascular: Denies: Chest pain Respiratory: Denies: Dyspnea, Cough Gastrointestinal: Denies: Abdominal pain, Nausea, Vomiting, Diarrhea Musculoskeletal: Reports: Back pain. Denies: Extremity Pain Neurological: Denies: Parasthesia, Numbness Psych: Denies: Depression Hematologic: Denies: Easy bruising, Easy bleeding Allergy: Denies: Uticaria Physical Exam Vital Signs/Narrative: Vital Signs Temp Pulse Resp BP Pulse Ox 07/07/20 12:32 97.1 F L 100 16 158/95 H 99 Inital Vital Signs reviewed: Yes General: Well nourished, Well developed Head: Normocephalic ENT: Moist mucous membranes Neck: Supple Cardiovascular: Regular rate, Regular rhythm Respiratory: No distress, CTA bilaterally Abdomen: Soft, Nontender Extremities: Tenderness - Tenderness throughout midline as well as bilateral paraspinal lumbar region. Skin: Normal color Neurological: Alert, Oriented x3, Normal Strength, Normal Sensation, - - 2+ b ilateral patellar reflexes. Strong distal pulses. Psychological: Normal affect Diagnostic/Tx/Re-eval Lumbar spine x-rays per my interpretation reveal no acute fracture. Normal alignment. - Medical Decision Making Patient did take naproxen approximately 2 hours prior to arrival without significant improvement. Patient was given [place] and Flexeril here. Test results discussed with patient at bedside. She will continue anti-inflammatories and will be written for Flexeril with a few [place] for breakthrough pain. She is given work restrictions. She will follow-up with [facility]. ED Disposition - Plan for ED Patient: Disposition: Home or Assisted Living Diagnosis: Lumbar paraspinal muscle spasm Instructions: ED Back Contusion, ED Muscle Spasm Prescriptions: cycloBENZAPRine HCl [Flexeril] 10 mg PO TID PRN #20 tab PRN Reason: Muscle Spasm Transmission Status: Pending to [facility] #30 Hydrocodone Bitart/Apap 5-325 [[place] 5MG-325MG] 1 tablet PO Q6H PRN PRN 3 Days #10 tablet PRN Reason: Pain Transmission Status: [facility] to [facility] [[facility] OF PHYSICIANS] - 3-5 Days
[2020-07-07] MEDS: cycloBENZAPRine HCl 10 MG Tablet PO (12:44)
[2020-07-07] MEDS: HYDROcodone Bitartrate/Apap 5/325 Tablet PO (12:44)
--- NOTE | 2020-07-07 13:05 | RAD_ITS ---
STUDY: X-RAY - LUMBAR SPINE REASON FOR EXAM: Female, 29 years old. Fell TECHNIQUE: 2 view(s) of the lumbar spine were obtained. COMPARISON: None FINDINGS: Normal lumbar lordosis. Mild levoscoliosis of the thoracolumbar spine. There is a normal alignment of the vertebrae. Normal vertebral bodies and endplates. Normal disc space heights. The soft tissue structures are unremarkable. RAD/Lumbar Spine 2 or 3 Views IMPRESSION: No acute fracture or subluxation. Electronically Signed: Iftikhar Adan MD at 13:38 EST Tel , Service support ,
--- NOTE | 2020-07-07 13:43 | ED.RN ---
pt spoke with supervisor [employer] house who stated she is not a drug test for workers comp.
== END 2020-07-07 13:46 | disposition home or self-care (01) ==
PROVIDERS: Emergency Provider Emergency Medicine
DX: M62.830 Muscle spasm of back (principal); F17.200 Nicotine dependence, unspecified, uncomplicated
CPT/HCPCS: 72100; 99285

== ENCOUNTER 2020-09-06 10:47 | Emergency (ER) | payer MEDICAID, SELFPAY ==
[2020-09-06 10:48] VITALS: BP 131/71; PULSE 131; RESP 16; TEMP 37; O2SAT 99; BMI 26.6
--- NOTE | 2020-09-06 11:43 | EKG12_ITS ---
Test Reason : CP Blood Pressure : / mmHG Vent. Rate : 107 BPM Atrial Rate : 107 BPM P-R Int : 122 ms QRS Dur : 088 ms QT Int : 316 ms P-R-T Axes : 043 070 015 degrees QTc Int : 421 ms Sinus tachycardia Otherwise normal ECG Confirmed by JOAQUIN MUELLER, CLAUDIA ([id number]), assistant editor HOSEA GOLD ([id number]) on 09/09/2020 11:39:42 A M Referred By: ZIA Confirmed By:TRISTA NUÑEZ MD
[2020-09-06 12:03] LABS: Absolute Lymphocyte Count 1.15 X10^3/uL (0.83-4.51); Absolute Neutrophil Count 9.2 X10^3/uL (2.0-7.7); Basophil# 0.04 X10^3/uL; Basophil% 0.3 % (0-1); Eosinophil# 0.03 X10^3/uL; Eosinophils% 0.3 % (0-5); Hematocrit 37.6 % (37-47); Hemoglobin 12.7 g/dL (12.0-15.0); Lymphocyte # 1.15 X10^3/ul (4.0); Lymphocyte % 9.7 % (19-41); Mean Corp Hgb Conc 33.8 g/dL (32-36); Mean Corpuscular Hgb 31.1 pg (27.0-32.0); Mean Corpuscular Volume 91.9 fL (81-99); Mean Platelet Vol. 9.4 fl (6.2-12.0); Monocyte# 1.41 X10^3/uL; Monocyte% 11.8 % (0-10); NRBC Flagged by Analyzer 0 % (0-5); Neutrophil # 9.24 X10^3/uL (2.7-7.7); Neutrophil % 77.6 % (47-70); Platelet Count 204 K/mm3 (150-450); RBC Distribution Width CV 12.6 % (11.6-14.6); RBC Distribution Width SD 42.5 fl (35.1-43.9); Red Blood Count 4.09 M/mm3 (4.2-5.4); White Blood Count 11.9 K/mm3 (4.4-11.0)
[2020-09-06] MEDS: Ketorolac 15 MG/ML Vial IV (12:16)
[2020-09-06] MEDS: 0.9% Normal Saline 1,000 ML 1000 ML IV (12:16)
[2020-09-06 12:18] VITALS: BP 129/57; PULSE 101; RESP 18; O2SAT 100
[2020-09-06 12:21] LABS: ALB/GLOB Ratio 0.7 RATIO (0.9-2.4); AST(SGOT) 16 U/L (15-37); Alanine Aminotransfer ALT/SGPT 41 U/L (13-56); Albumin, Serum 3.1 g/dL (3.2-5.0); Alkaline Phosphatase 97 U/L (45-117); Anion Gap 6 (5-15); BUN 8 mg/dL (7-18); BUN/Creat Ratio 8.9 RATIO (10-20); Calcium,Total 8.7 mg/dL (8.5-10.1); Chloride 103 mmol/L (98-107); EST Glomerular Filtration Rate 78 mL/min (>60); Est Glom Filt Rate - Afr Amer 94 mL/min (>60); Estimated Creatinine Clearance 95.52 ml/min; Globulin 4.2 g/dL (2.2-4.2); Glucose 84 mg/dL (74-106); Potassium 3.1 mmol/L (3.5-5.1); Protein, Total 7.3 g/dL (6.4-8.2); Sodium Level 134 mmol/L (136-145)
[2020-09-06 12:28] LABS: D-Dimer Quantitative (DVT/PE) 0.76 FEU/ug/m (0.27-0.49)
[2020-09-06 12:33] LABS: Mucous, Urine 0 SEEN /hpf (<or=2+)
[2020-09-06 12:41] LABS: Color, Urine Yellow (Yellow); Glucose, Dipstick Normal (Normal); Ketone-Dipstick Negative (Negative); Leukocyte Esterase-Dipstick 100 /ul (Negative); Nitrite-Dipstick Negative (Negative); Occult Blood-Urine 50 /ul (Negative); Protein-Dipstick 30 mg/dl (Negative); Specific Gravity, Urine 1.005 (1.002-1.030); Urine Bilirubin Dipstick Negative (Negative); Urine Clarity Sl. Cloudy (Clear); Urine Urobilinogen Normal (Normal); Urine pH 6.5 (5.0 - 8.0)
[2020-09-06 12:42] LABS: Internal QC Validated? YES +Cl - CLEAR BKGD; Pregnancy, Urine Negative Negative
[2020-09-06 12:54] LABS: Bacteria 1+ /hpf (None Seen); Red Blood Cells-Urine 0-5 SEEN /hpf (0-5); Squamous Epithelial Cells - UA 0-5 SEEN /hpf (5-10); White Blood Cells 10-25 SEEN /hpf (0-5)
--- NOTE | 2020-09-06 12:55 | CT_ITS ---
STUDY: CTA CHEST REASON FOR EXAM: Female, 30 years old. CHEST PAIN, ELEVATED D-DIMER RADIATION DOSAGE (If Supplied By Facility): CTDIvol = ( 11.63 ) mGy, DLP = ( 506.10 ) mGycm TECHNIQUE: The examination was performed with the intravenous administration of IV 100mL Isovue-370. Post-processing of the angiographic images was performed, with multiplanar reformation and 3D reconstruction. Individualized dose optimization techniques were used for this CT. COMPARISON: None. FINDINGS: Small benign appearing bilateral axillary lymph nodes. Normal enhancement of the main pulmonary artery and right and left pulmonary arteries. Normal enhancement of the bilateral peripheral pulmonary arteries. There is no demonstrated pulmonary embolism. Normal thoracic aorta and visualized great vessels. There is no demonstrated aortic dissection. Normal heart and pericardium. Normal mediastinum. Normal hilar regions. Normal visualized trachea and bronchi. The lungs are well expanded. Normal pulmonary parenchyma. Normal pleura. Normal chest wall structures. Normal osseous structures. Normal visualized upper abdomen. CT/CTA Chest W/WO Contrast IMPRESSION: Normal CTA chest examination, without a demonstrated pulmonary embolism or arterial dissection. Electronically Signed: Jaime Tabor MD at 13:25 EST , Service support ,
--- NOTE | 2020-09-06 13:50 | ED.DCSUM_ITS ---
History of Present Illness Chief Complaint: Back Narrative: Patient presenting for evaluation secondary to back pain. Patient states that she has generalized back pain that is been going on for couple of days. It is over the entirety of the back and is worse with movement prolonged standing or palpation. No ration in addition to the arms. No radiation to the legs. No numbness or weakness bowel or bladder incontinence. She denies any fevers chills night sweats or any unintended weight loss. 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 Patient states that she has been taking [id number] with minimal relief. She denies any urinary signs or symptoms or incontinence. Patient additionally states that the pain is in her thoracic back and is worse with taking a deep breath. She denies any DVT or PE risk factors. Review of systems otherwise negative. Past Medical History - Allergies and Home Meds Allergies/Adverse Reactions: Allergies lactose Adverse Reaction (Verified 09/06/20 10:48) Upset Stomach tomato Adverse Reaction (Verified 09/06/20 10:48) Vomiting Primary Care Physician: Care Physician,No Primary [Primary Care Provider] - Prior records reviewed: Yes Past Medical History: - - Sukhwinder, seizures, GERD Surgical History: noncontributory Smoking Status: Current every day smoker Alcohol: None Drugs: - - Past history of methamphetamine use Review of Systems All systems negative except as indicated General: Denies: Chills, Fever, Sweats Eyes: Denies: Visual changes - bilaterally, Diplopia ENT: Denies: Rhinorrhea, Sore throat Cardiovascular: Denies: Chest pain, Palpitations Respiratory: Denies: Dyspnea, Cough, Dyspnea on exertion Gastrointestinal: Denies: Abdominal pain, Nausea, Vomiting, Diarrhea, Melena, Hematochezia Genitourinary: Denies: Dysuria, Hematuria, Frequency Musculoskeletal: Reports: Back pain Skin: Denies: Rash, Wounds Neurological: Denies: Headache, Weakness, Numbness Physical Exam Vital Signs/Narrative: Vital Signs Temp Pulse Resp BP Pulse Ox 09/06/20 12:18 101 H 18 129/57 H 100 09/06/20 10:48 98.6 F 131 H 16 131/71 H 99 Inital Vital Signs reviewed: Yes General: Well nourished, Well developed Head: Normocephalic, Atraumatic Eyes: Perrl, EOMI ENT: Moist mucous membranes, No rhinorrhea Neck: Supple, Nontender Cardiovascular: Regular rhythm, No murmurs, Tachycardia Respiratory: No distress, CTA bilaterally, Chest nontender Abdomen: Soft, Nontender, Nondistended, Normal bowel sounds Back: Normal Inspection, - - Diffuse nonlocalized tenderness of the paraspinal and spinal thoracic and lumbar back without any evidence of deformity. Extremeties: Nontender, No edema, - - 5 out of 5 strength of the hip knee ankle and foot with normal sensation over all dermatomes normal bilateral reflexes normal bilateral pulses. Skin: Normal color, No rash Neuro: Alert, Oriented, Normal Strength, Normal Sensation, Normal DTR, Normal Gait Psychological: Normal affect Diagnostic/Tx/Re-eval Clinical Impression(s) from Imaging Studies Chest CTA 09/06/20 12:55 IMPRESSION: Normal CTA chest examination, without a demonstrated pulmonary embolism or arterial dissection. Electronically Signed: Jaiem Tabor MD at 13:25 EST , Service support , Laboratory Data 09/06/20 09/06/20 09/06/20 11:53 11:53 11:53 WBC 11.9 H RBC 4.09 L Hgb 12.7 Hct 37.6 MCV 91.9 MCH 31.1 MCHC 33.8 RDW Std Deviation 42.5 RDW Coeff of Abiodun 12.6 Plt Count 204 MPV 9.4 Immature Gran % (Auto) 0.300 Neut % (Auto) 77.6 H Lymph % (Auto) 9.7 L [place] % (Auto) 11.8 H Eos % (Auto) 0.3 Baso % (Auto) 0.3 Absolute Neuts (auto) 9.2 H Absolute Lymphs (auto) 1.15 Nucleated RBC % 0 D-Dimer Quant (PE/DVT) 0.76 H* Sodium 134 L Potassium 3.1 L Chloride 103 Carbon Dioxide 25.0 Anion Gap 6 BUN 8 Creatinine 0.90 Estim Creat Clear Calc 95.52 Est GFR (MDRD) Af Amer 94 Est GFR (MDRD) Non-Af 78 BUN/Creatinine Ratio 8.9 L Glucose 84 Calcium 8.7 Total Bilirubin 0.50 AST 16 ALT 41 Alkaline Phosphatase 97 Troponin I < 0.015 Total Protein 7.3 Albumin 3.1 L Globulin 4.2 Albumin/Globulin Ratio 0.7 L Urine Color Urine Clarity Urine pH Ur Specific [place] Urine Protein Urine Glucose (UA) Urine Ketones Urine Occult Blood Urine Nitrite Urine Bilirubin Urine Urobilinogen Ur Leukocyte Esterase Urine RBC Urine WBC Ur Squamous Epith Cells Urine Bacteria Urine Mucus Urine Test 09/06/20 09/06/20 12:20 12:20 WBC RBC Hgb Hct MCV MCH MCHC RDW Std Deviation RDW Coeff of Abiodun Plt Count MPV Immature Gran % (Auto) Neut % (Auto) Lymph % (Auto) [place] % (Auto) Eos % (Auto) Baso % (Auto) Absolute Neuts (auto) Absolute Lymphs (auto) Nucleated RBC % D-Dimer Quant (PE/DVT) Sodium Potassium Chloride Carbon Dioxide Anion Gap BUN Creatinine Estim Creat Clear Calc Est GFR (MDRD) Af Amer Est GFR (MDRD) Non-Af BUN/Creatinine Ratio Glucose Calcium Total Bilirubin AST ALT Alkaline Phosphatase Troponin I Total Protein Albumin Globulin Albumin/Globulin Ratio Urine Color Yellow Urine Clarity Sl. Cloudy Urine pH 6.5 Ur Specific [place] 1.005 Urine Protein 30 H Urine Glucose (UA) Normal Urine Ketones Negative Urine Occult Blood 50 H Urine Nitrite Negative Urine Bilirubin Negative Urine Urobilinogen Normal Ur Leukocyte Esterase 100 H Urine RBC 0-5 SEEN Urine WBC 10-25 SEEN Ur Squamous Epith Cells 0-5 SEEN Urine Bacteria 1+ Urine Mucus 0 SEEN Urine Test Negative - EKG Initial EKG Interpretation: - - Sinus rhythm 107 with tachycardia, isoelectric ST segments normal T waves normal [place] and QTc intervals no evidence of acute ischemia or arrhythmia - Medical Decision Making Patient presented with diffuse back pain. She was tachycardic and did report somewhat of a pleuritic component to this, so work-up was obtained. Patient unfortunately had an elevated D-dimer. CT angiogram of the chest was performed which was found to be negative per radiology. Remainder the patient's work-up demonstrates negative troponin and a positive urinalysis for infection. This was sent for culture. Patient be started on a course of Bactrim for likely UTI with pyelonephritis causing the patient's symptoms. She was educated on signs and symptoms which to return. ED Disposition - Plan for ED Patient: Disposition: Home or Assisted Living Diagnosis: Pyelonephritis Instructions: ED Pyelonephritis, Female (Adult) Prescriptions: Smz/Tmp Ds [Bactrim Ds] 1 tab PO BID #[id number] tab Prescription Printed Referrals: Vickie Street [NON-STAFF] - 5-7 Days
[2020-09-06] MEDS: Smz/Tmp Ds Tablet 1 TABLET PO (14:13)
[2020-09-06 14:14] VITALS: BP 122/64; PULSE 98; RESP 17; TEMP 36.6; O2SAT 100
== END 2020-09-06 14:15 | disposition home or self-care (01) ==
PROVIDERS: Emergency Provider Emergency Medicine
DX: N12 Tubulo-interstitial nephritis, not specified as acute or chronic (principal); F17.200 Nicotine dependence, unspecified, uncomplicated
CPT/HCPCS: 71275; 80053; 81001; 81025; 84484; 85025; 85379; 87077; 87086; 87088; 87186; 93005; 96361; 96374; 99284; J7030; Q9967

== ENCOUNTER 2021-01-01 10:29 | Emergency (ER) | payer MEDICAID, SELFPAY ==
[2021-01-01 10:30] VITALS: BP 123/74; PULSE 106; RESP 15; TEMP 36.3; O2SAT 99; BMI 23.6
[2021-01-01] MEDS: Ibuprofen 600 MG Tablet PO (11:02)
--- NOTE | 2021-01-01 11:10 | RAD_ITS ---
STUDY: X-RAY - LEFT KNEE REASON FOR EXAM: Left lateral knee pain for 2 months. TECHNIQUE: 4 view(s) of the knee. COMPARISON: Radiographs 08/22/2018. FINDINGS: Normal visualized distal femur. Normal visualized proximal tibia and fibula. Normal proximal tibiofibular articulation. Normal medial femorotibial compartment. Normal lateral femorotibial compartment. Normal patellofemoral articulation. There is interval development of a small calcification at the femoral origin of the medial collateral ligament suggestive of remote injury. RAD/Knee 4 or More Views IMPRESSION: Small calcification at the femoral origin of the medial collateral ligament suggestive of remote injury. Otherwise, unremarkable x-ray examination of the left knee. Electronically Signed: Viet Katz MD at 11:43 EDT Tel , Service support ,
--- NOTE | 2021-01-01 12:33 | EDS_ITS ---
HPI History of Present Illness Chief Complaint: Lower Extremity Injury Informant: patient Onset/Context/Timing Onset: Month(s) (2) Context: Gradual Onset Timing: Intermittent Quality of Pain: Stabbing Location: Left knee Worsened by: Weightbearing Relieved by: Rest Associated Symptoms Associated Symptoms: Negative for Parasthesia and Weakness Narrative Narrative: Patient presents with left knee pain that has been getting worse for the past 2 months. Patient states her pain is intermittent. Patient states today the pain became severe. Patient states the pain is worse with weightbearing. Patient states it is better with rest. Patient denies any specific trauma or injury. Patient denies any clicking or popping sensation. Patient denies any paresthesias or weakness. Patient states the pain is over the anterior and lateral aspects of the left knee and radiates to the popliteal area. [facility] Medical History (Updated 01/01/21 @ 12:[address] Jignesh Fuentes, ) Chlamydia Depression History of drug abuse History of substance abuse Light tobacco smoker <10 cigarettes per day Seizure disorder Home Medications NK 01/01/21 [History Last Taken Unknown] Allergy/AdvReac Type Severity Reaction Status Date / Time lactose AdvReac Upset Verified 01/01/21 10:32 Stomach tomato AdvReac Vomiting Verified 01/01/21 10:32 Family History Other Alcohol abuse Arthritis Depression Seizures Social History Smoking Status: Current every day smoker tobacco type: cigarettes alcohol intake: current alcohol intake frequency: a few times a week details: Hx of alcohol abuse substance use type: does not use, former substance user Date of last use: 2010 , opiates, painkillers and methamphetamine what type of physical activity do you participate in: walking frequency: daily ROS ROS ED Constitutional Constitutional ED: Denies chills or fever(s) Eyes Eyes: Denies blurry vision or change in vision ENT ENT ED: Denies rhinorrhea or sore throat Cardiovascular Cardiovascular: Denies chest pain or palpitations Respiratory/Chest Respiratory/Chest: Denies cough or dyspnea Gastrointestinal Gastrointestinal: Denies nausea or vomiting Genitourinary Genitourinary ED: Denies dysuria or hematuria Musculoskeletal Musculoskeletal: Denies back pain or neck pain Integumentary Denies abscess or rash Neurologic Neurologic: Denies headache(s) or weakness Allergic/Immunologic Allergic/Immunologic ED: Denies mouth swelling or urticaria EXAM Physical Exam Const Vital Signs: 01/01/21 10:30 Temperature 97.4 F L Temperature Source Temporal Pulse Rate 106 H Respiratory Rate 15 Blood Pressure 123/74 H Blood Pressure Mean 90 Pulse Ox 99 Oxygen Delivery Method Room Air Positive well nourished and well developed General Appearance ED: well developed HEENT Reports moist mucous membranes Neck full ROM and supple Extremity Extremity Narrative: There is tenderness over the anterior and lateral aspects of the left knee. This is worse along the joint line. There is no effusion. There is no bony crepitance or step-off. Range of motion was limited in all motions of the left knee secondary to pain. There is no laxity appreciated. Verna's test was negative. There is a negative Jessica's test. There is pain with valgus testing. Varus test is normal. Posterior tibial and pedal pulses are equal. There are no sensory deficits noted. Neuro oriented x3, CN's II-XII intact bilaterally, moves all extremities and no sensory deficits noted Sensorium / Orientation: alert Motor Exam: strength 5/5 throughout Psych mental status grossly normal MDM MDM MDM Narrative Medical decision making narrative: Patient was given a dose of ibuprofen. X- rays of the left knee were obtained. There are 4 views. On my interpretation, there is no acute fracture. There is no dislocation. There is no soft tissue swelling. Radiologist also interpreted the x-rays and agrees. Patient was advised of her findings. Patient was instructed to ice and elevate the left knee. Patient was instructed to take Tylenol or Motrin as needed for pain. Patient was instructed to follow-up with her primary care physician in 5 to 7 days. Patient was advised that if this persists she may need physical therapy, orthopedic consultation, and or MRI. Patient understands and is agreeable with the plan. All questions were answered. Radiography Diagnostic Testing: Radiology Impression Knee X-Ray 01/01/21 11:10 IMPRESSION: Small calcification at the femoral origin of the medial collateral ligament suggestive of remote injury. Otherwise, unremarkable x-ray examination of the left knee. Electronically Signed: Viet Katz MD at 11:43 EDT Tel , Service support , Discharge Plan Triage Chief Complaint: Lower Extremity Injury ED Provider: Jignesh Fuentes Dx/Rx/DC Orders Clinical Impression: Knee pain, left Instructions: ED Meniscal Injury Knee Poss, ED Knee Pain of Uncertain Cause Prescriptions: No Action NK RF: 0 Primary Care Provider: Care Physician,No Primary Referrals: Shanthi Lennon MD [STAFF PHYSICIAN] - 5-7 Days Care Physician,No Primary [Primary Care Provider] - Disposition Disposition: Home, self care
== END 2021-01-01 12:46 | disposition home or self-care (01) ==
PROVIDERS: Emergency Provider Emergency Medicine
DX: M25.562 Pain in left knee (principal); F17.210 Nicotine dependence, cigarettes, uncomplicated
CPT/HCPCS: 73564; 99283

== ENCOUNTER 2021-04-03 14:55 | Emergency (ER) | payer MEDICAID, SELFPAY ==
[2021-04-03 14:55] VITALS: BP 124/78; PULSE 105; RESP 16; TEMP 36.6; O2SAT 100; BMI 27.9
--- NOTE | 2021-04-03 14:58 | RAD_ITS ---
STUDY: X-RAY - RIGHT ANKLE REASON FOR EXAM: Female, 30 years old. PAIN TECHNIQUE: 4 view(s) of the ankle. COMPARISON: None. FINDINGS: Normal visualized distal tibia and fibula. Nondisplaced transverse fracture of the medial malleolus. A suspected nondisplaced fracture of the posterior aspect of the distal tibia. Normal tibiotalar articulation and ankle mortise. Plantar spur. The visualized subtalar, talonavicular, calcaneocuboid and tarsal articulations are normal. Soft tissue swelling. RAD/Ankle min 3 Views IMPRESSION: Nondisplaced transverse fracture of the medial malleolus. Nondisplaced fracture of the posterior malleolus of the distal tibia. Calcaneal spur. Electronically Signed: Jaime Tabor MD at 15:26 EDT , Service support ,
--- NOTE | 2021-04-03 16:17 | ED.VIS.LOWEX ---
HPI History of Present Illness Chief Complaint: Lower Extremity Injury Narrative Narrative: Patient presenting for evaluation secondary to an ankle injury. Patient states that she woke up this morning, was not sure how she injured her ankle but states that she is having difficulty with bearing weight. Questioning the patient whether or not she fell or was drinking or was intoxicated, the patient denies all of this. Patient states that she has severe pain in her ankle that is worse with bearing weight. She also has an abrasion over the medial side of her right foot which she states came from hitting it on the bed . She denies any other injuries currently. [facility] Medical History (Updated 04/03/21 @ 16:[address] Alberto March MD) Chlamydia Depression History of drug abuse History of substance abuse Light tobacco smoker <10 cigarettes per day Seizure disorder Home Medications NK 01/01/21 [History Last Taken Unknown] Allergy/AdvReac Type Severity Reaction Status Date / Time lactose AdvReac Upset Verified 04/03/21 14:57 Stomach tomato AdvReac Vomiting Verified 04/03/21 14:57 Family History Other Alcohol abuse Arthritis Depression Seizures Social History Smoking Status: Current every day smoker tobacco type: cigarettes alcohol intake: current alcohol intake frequency: a few times a week details: Hx of alcohol abuse substance use type: does not use, former substance user Date of last use: 2010 , opiates, painkillers and methamphetamine what type of physical activity do you participate in: walking frequency: daily ROS ROS ED Constitutional Constitutional ED: Denies chills or fever(s) ENT ENT ED: Denies rhinorrhea Cardiovascular Cardiovascular: Denies chest pain Respiratory/Chest Respiratory/Chest: Denies cough or dyspnea Gastrointestinal Gastrointestinal: Denies abdominal pain, diarrhea, nausea or vomiting Genitourinary Genitourinary ED: Denies dysuria or hematuria Musculoskeletal Musculoskeletal: Reports other Details: Ankle pain ; Denies back pain Integumentary Reports Abrasions; Denies rash Neurologic Neurologic: Denies paresthesias or weakness Psychiatric Psychiatric: Denies depression Endocrine Endocrinology: Denies fatigue Allergic/Immunologic Allergic/Immunologic ED: Denies urticaria EXAM Physical Exam Const Vital Signs: 04/03/21 14:55 Temperature 97.8 F Temperature Source Temporal Pulse Rate 105 H Respiratory Rate 16 Blood Pressure 124/78 H Blood Pressure Mean 93 Pulse Ox 100 Oxygen Delivery Method Room Air Positive well nourished and well developed Constitutional Narrative: Well-appearing female no acute distress General Appearance ED: well developed and NAD HEENT Reports moist mucous membranes HEENT Narrative: No evidence of tongue biting Negative for trauma or tenderness Eyes EOMs intact bilaterally Neck no lymphadenopathy, supple and no JVD Chest Wall inspection of chest normal Resp normal respiratory effort and clear to auscultation bilaterally Cardio regular rate, regular rhythm, no murmurs and peripheral pulses 2+ throughout GI normal to inspection, nondistended, normoactive bowel sounds, non-tender and no masses Palpation: soft Back/Spine normal to inspection Extremity Extremity Narrative: Lower extremity exam shows no tenderness over the proximal fibular head. There is lateral and medial malleoli are swelling of the ankle with tenderness to palpation and limited range of motion. No tenderness over the fifth metatarsal head. There is an abrasion noted over the medial portion of the patient's midfoot near the metatarsal phalangeal joint. Normal pulses normal sensation. General Extremety ED: Negative for tenderness Neuro oriented x3 and no sensory deficits noted Sensorium / Orientation: alert Motor Exam: strength 5/5 throughout Psych mental status grossly normal Skin no rashes or lesions noted MDM MDM MDM Narrative Medical decision making narrative: Patient presented secondary to an ankle injury. She is very elusive about how this potentially happens, and I am suspicious that she suffered a fall but she would not come forthright with this. I did review the patient's medical record, she has a history of epilepsy she denies that she is having any seizures associated with this, no evidence of tongue biting. Regardless x-ray by my personal review as well as radiology shows a bimalleolar ankle fracture with medial and posterior malleolus being fractured. Patient be placed in a boot orthosis, be made nonweightbearing. 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 Patient will follow up with orthopedics. Radiography Diagnostic Testing: Radiology Impression Ankle X-Ray 04/03/21 14:58 IMPRESSION: Nondisplaced transverse fracture of the medial malleolus. Nondisplaced fracture of the posterior malleolus of the distal tibia. Calcaneal spur. Electronically Signed: Jaime Tabor MD at 15:26 EDT , Service support , Discharge Plan Triage Chief Complaint: Lower Extremity Injury ED Provider: Alberto March Dx/Rx/DC Orders Clinical Impression: Ankle fracture, right Instructions: ED Ankle Fracture Prescriptions: No Action NK RF: 0 Primary Care Provider: Care Physician,No Primary Referrals: Tramaine Fox DO [STAFF PHYSICIAN] - 3-5 Days Care Physician,No Primary [Primary Care Provider] - Disposition Disposition: Home, Self Care
--- NOTE | 2021-04-03 16:43 | CM.ED ---
SW Note Referral Source: Case Find Referral Reason: No Primary Care Physician (PCP) SW reviewed chart and noted that patient has no PCP. SW provided patient with list of [facility] and [facility] Physician List for reference. SW also provided patient with handout ?Where to go When?. No other issues or concerns voiced at this time. SW remains available for any additional needs. Plan: Provided patient with PCP information Megan AMAYA
[2021-04-03 16:45] VITALS: PULSE 88; RESP 17; O2SAT 98
[2021-04-03 18:15] VITALS: BP 138/74; PULSE 62; RESP 15; O2SAT 98
--- NOTE | 2021-04-03 19:36 | ED.RN ---
This nurse waiting on walker from [facility].
== END 2021-04-03 18:15 | disposition home or self-care (01) ==
PROVIDERS: Emergency Provider Emergency Medicine
DX: S82.891A Other fracture of right lower leg, initial encounter for closed fracture (principal); F17.210 Nicotine dependence, cigarettes, uncomplicated; W22.03XA Walked into furniture, initial encounter
CPT/HCPCS: 73610; 99283

== ENCOUNTER 2021-06-04 22:48 | Emergency (ER) | payer MEDICAID, SELFPAY ==
[2021-06-04 22:48] VITALS: BP 125/88; PULSE 129; RESP 16; TEMP 36.6; O2SAT 99; BMI 29.0
--- NOTE | 2021-06-04 23:04 | EDS_ITS ---
HPI History of Present Illness Chief Complaint: Seizure Informant: patient and spouse/S.O. Narrative Narrative: Patient was told she had a seizure at work. Her significant other said that he was told it lasted about a minute maybe a minute and a half. Patient states normally when she has a seizure she will be confused for hours afterwards but now she feels pretty good and did not have this. This she thinks was a mild seizure. She has had seizures for about 15 years or more. She has been on multiple meds. She is currently on Lamictal at 200 twice daily. She states this has controlled them better than any other meds. She has been trying to get into see a neurologist down in [place]. She is waiting for an appointment. She states she still has refills for at least 90 pills left. She has been taking them and denies missing them. She has a history of polypharmacy abuse but that is in the past and has been almost 10 years since she is used. No recent alcohol. She states that stress brings on her seizures which did occur today. Stress normally brings them on. [facility] Medical History (Updated 06/04/21 @ 23:[address] Mati Prieto MD) Chlamydia Depression History of drug abuse History of substance abuse Light tobacco smoker <10 cigarettes per day Seizure disorder Home Medications lamotrigine [Lamictal] 200 mg PO BID 06/04/21 [History Last Taken Unknown] Allergy/AdvReac Type Severity Reaction Status Date / Time lactose AdvReac Upset Verified 06/04/21 22:48 Stomach tomato AdvReac Vomiting Verified 06/04/21 22:48 Family History Other Alcohol abuse Arthritis Depression Seizures Social History Smoking Status: Current every day smoker tobacco type: cigarettes alcohol intake: current alcohol intake frequency: a few times a week details: Hx of alcohol abuse substance use type: does not use, former substance user Date of last use: 2010 , opiates, painkillers and methamphetamine what type of physical activity do you participate in: walking frequency: daily ROS ROS ED Constitutional Constitutional ED: Denies chills or fever(s) Eyes Eyes: Denies blurry vision, change in vision or diplopia ENT ENT ED: Denies ear pain or rhinorrhea Cardiovascular Cardiovascular: Denies chest pain or palpitations Respiratory/Chest Respiratory/Chest: Denies cough or dyspnea Gastrointestinal Gastrointestinal: Denies diarrhea, nausea or vomiting Genitourinary Genitourinary ED: Denies dysuria Musculoskeletal Musculoskeletal: Denies myalgias Integumentary Denies rash Neurologic Neurologic: Reports other Details: See history of present illness Psychiatric Psychiatric: Reports depression Endocrine Endocrinology: Denies polydipsia or polyuria Allergic/Immunologic Allergic/Immunologic ED: Denies urticaria EXAM Physical Exam Const Vital Signs: 06/04/21 22:48 Temperature 97.8 F Temperature Source Temporal Pulse Rate 129 H Respiratory Rate 16 Blood Pressure 125/88 H Blood Pressure Mean 100 Pulse Ox 99 Oxygen Delivery Method Room Air Positive well nourished and well developed General Appearance ED: well developed and NAD; Negative for cyanotic or diaphoretic HEENT Reports moist mucous membranes Negative for trauma or tenderness Eyes PERRL and EOMs intact bilaterally Eyes Narrative: No photophobia. Pupils are normal and reactive. General Eye ED: Negative for pale conjunctiva or scleral icterus Neck no lymphadenopathy and supple Chest Wall inspection of chest normal Resp normal respiratory effort and clear to auscultation bilaterally Cardio regular rate and regular rhythm GI normal to inspection, nondistended, normoactive bowel sounds and non-tender Palpation: soft Back/Spine no CVA tenderness Extremity normal to inspection General Extremety ED: Negative for tenderness Neuro oriented x3, CN's II-XII intact bilaterally and no sensory deficits noted Sensorium / Orientation: alert; Negative for orientation impaired, lethargic or stuporous Sensory Exam: No sensory level loss detected Motor Exam: strength 5/5 throughout; Negative for general weakness or strength abnormal Psych mental status grossly normal Attitude: No agitated Mood & Affect: Negative for depressed, anxious or tearful Skin no rashes or lesions noted MDM MDM MDM Narrative Medical decision making narrative: History is consistent with breakthrough seizure. I cannot get acute Lamictal levels. She feels fine now and before the seizure. She has had this worked up many times. I do not think she needs blood work or CT scan. I will write a note that she can return to work tomorrow. I have encouraged her to continue with her neurology appointment. I will give her a name of primary physician in the area as she does not currently have one. All questions were answered. Discharge Plan Triage Chief Complaint: Seizure ED Provider: Mati Prieto Dx/Rx/DC Orders Clinical Impression: Breakthrough seizure Instructions: ED Seizure, Recurrent (Adult) Prescriptions: No Action lamotrigine [Lamictal] 200 mg Tablet 200 mg PO BID RF: 0 Stand Alone Forms: ED Work / School Excuse Primary Care Provider: Care Physician,No Primary Referrals: Georgia Medeiros MD [STAFF PHYSICIAN] - As soon as possible Care Physician,No Primary [Primary Care Provider] - Disposition Disposition: Home, Self Care
== END 2021-06-04 23:20 | disposition home or self-care (01) ==
LOC: ED 23:17
PROVIDERS: Emergency Provider Emergency Medicine
DX: G40.909 Epilepsy, unspecified, not intractable, without status epilepticus (principal); F17.210 Nicotine dependence, cigarettes, uncomplicated; Z79.899 Other long term (current) drug therapy
CPT/HCPCS: 99282

== ENCOUNTER 2021-07-22 22:17 | Emergency (ER) | payer MEDICAID, SELFPAY ==
[2021-07-22 22:31] VITALS: BP 126/81; PULSE 109; RESP 14; TEMP 36.8; O2SAT 98; BMI 26.6
--- NOTE | 2021-07-23 00:17 | NURSING ---
Patient was told twice to change into gown for possible ct head and xray LE. After second request, she changed. Unfortunately, she has changed back into her clothes and gown is at the bedside. She is having leg pain still and is aware we are waiting on dr to come in for eval and cannot get her a pain med without the order and eval by [facility]. Registration is in with patient at this time.
[2021-07-23 00:18] VITALS: RESP 17
[2021-07-23 00:26] VITALS: BP 111/65; PULSE 79; RESP 17; O2SAT 98
--- NOTE | 2021-07-23 01:00 | RAD_ITS ---
STUDY: X-RAY - RIGHT ANKLE REASON FOR EXAM: Female, 31 years old. Posttraumatic right ankle pain TECHNIQUE: 3 view(s) of the ankle. COMPARISON: 04/03/2021 FINDINGS: There is a transverse fracture through the medial malleolus. Mild cortical irregularity noted within the posterior aspect of the distal tibia which is unchanged, potentially representing an old healed fracture deformity. Lateral malleolus is intact. Normal tibiotalar articulation and ankle mortise. Normal visualized talus and calcaneus. There is a small plantar calcaneal spur. There is mild degenerative change within the talonavicular joint. The soft tissue structures are unremarkable. RAD/Ankle min 3 Views IMPRESSION: Transverse fracture through the medial malleolus Electronically Signed: Nestor Azevedo MD at 1:35 EST Tel , Service support ,
[2021-07-23] MEDS: lamoTRIgine 100 MG Tablet 200 MG PO (01:10)
[2021-07-23] MEDS: Morphine 4 MG/ML Syringe IV (02:17)
--- NOTE | 2021-07-23 03:09 | EX.ED.DYSGE1 ---
HPI History of Present Illness Chief Complaint: Seizure Informant: patient and EMS Onset/Context/Timing Onset: Today Context: Sudden Onset Timing: Intermittent (x1) and Lasts (unk) Quality: seizure Current Severity: Gone Maximum Severity: Moderate Worsened by: unk Relieved by: nothing needed, spont resolution Associated Symptoms Associated Symptoms: R ankle injury Narrative Narrative: Patient has history of epilepsy since I was age 15 and tonight at work she apparently had another seizure. It has been a month or 2 since she has had 1. She takes Lamictal 200 mg twice daily and states she has been compliant with it although she has not had tonight's dose yet, she usually gets off at 11 and goes home and takes it at 1115, and she was almost to the end of her shift when she had the seizure. She denies any recent illness or injury. No use of drugs recently. She states in the process of having a seizure, she has injured her right ankle. She denies any other symptoms right now and feels back to normal, including lack of any headache or focal neurologic symptoms or changes in her vision. [facility] Medical History Chlamydia Depression History of drug abuse History of substance abuse Light tobacco smoker <10 cigarettes per day Seizure disorder Home Medications lamotrigine [Lamictal] 200 mg PO BID 06/04/21 [History Last Taken Unknown] lamotrigine [Lamictal] 200 mg PO BID #60 tab 07/23/21 [Rx Last Taken Unknown] tramadol 50 mg PO Q4H PRN PRN 3 Days #12 tab 07/23/21 [Rx Last Taken Unknown] Allergy/AdvReac Type Severity Reaction Status Date / Time lactose AdvReac Upset Verified 07/22/21 22:35 Stomach tomato AdvReac Vomiting Verified 07/22/21 22:35 Family History Other Alcohol abuse Arthritis Depression Seizures Social History Smoking Status: Current every day smoker tobacco type: cigarettes alcohol intake: current alcohol intake frequency: a few times a week details: Hx of alcohol abuse substance use type: does not use, former substance user Date of last use: 2010 , opiates, painkillers and methamphetamine what type of physical activity do you participate in: walking frequency: daily ROS ROS ED Constitutional Constitutional ED: Denies chills or fever(s) Eyes Eyes: Denies change in vision or diplopia ENT ENT ED: Denies rhinorrhea or sore throat Cardiovascular Cardiovascular: Denies chest pain or palpitations Respiratory/Chest Respiratory/Chest: Denies cough or dyspnea Gastrointestinal Gastrointestinal: Denies abdominal pain, diarrhea, nausea or vomiting Genitourinary Genitourinary ED: Denies dysuria or hematuria Musculoskeletal Musculoskeletal: Reports extremity pain; Denies back pain or neck pain Integumentary Denies abscess or rash Neurologic Neurologic: Denies headache(s), paresthesias or weakness Psychiatric Psychiatric: Denies anxiety or suicidal thoughts EXAM Physical Exam Const Vital Signs: 07/22/21 22:31 07/23/21 00:18 07/23/21 00:26 Temperature 98.2 F Temperature Source Temporal Pulse Rate 109 H 79 Respiratory Rate 14 17 17 Blood Pressure 126/81 H 111/65 Blood Pressure Mean 96 80 Pulse Ox 98 98 Oxygen Delivery Method Room Air Room Air 07/23/21 03:18 Temperature 98 F Temperature Source Temporal Pulse Rate 78 Respiratory Rate 17 Blood Pressure 132/74 H Blood Pressure Mean 93 Pulse Ox 98 Oxygen Delivery Method Room Air Positive well nourished and well developed General Appearance ED: well developed and NAD HEENT Reports moist mucous membranes HEENT Narrative: Contusion and abrasion just beneath and lateral to the left eye, there is no bony tenderness, infraorbital hypoesthesia, zygomatic tenderness. normocephalic Eyes PERRL and EOMs intact bilaterally Eyes Narrative: No pain with extraocular movements. No diplopia. No entrapment. No sign of globe injury. Neck full ROM and supple Resp normal respiratory effort and clear to auscultation bilaterally Cardio regular rate, regular rhythm and no murmurs GI non-tender and non-distended Auscultation: normoactive bowel sounds Palpation: soft Back/Spine no CVA tenderness General Back: other FROM Extremity Extremity Narrative: Tender right medial malleolus. There is localized swelling there. No other bony tenderness in the right lower extremity including the proximal fibula and base of the fifth metatarsal and lateral malleolus. Joint is stable. All other joints and extremities are atraumatic with full range of motion and no tenderness. General Extremety ED: Yes tenderness; Negative for edema or pulses abnormal General Extremity: Negative for edema or pulses abnormal Neuro oriented x3, CN's II-XII intact bilaterally and no sensory deficits noted Sensorium / Orientation: awake and alert Motor Exam: strength 5/5 throughout Skin no rashes or lesions noted Skin Narrative: Right lower extremity skin intact. Abrasion left face near the eye without any tenderness. No lacerations. MDM MDM MDM Narrative Medical decision making narrative: Patient was given her Lamictal 200 mg. She was observed in the ER for several hours mostly because of volume, she had no further seizure activity. She was given pain medication for her right ankle fracture, which on further examination after discussing with Dr. Sousa podiatry, looks identical to her old x-rays in March. Patient has been walking on this without any difficulty until she injured it tonight, since then. It is possible that she rebroke it, it is possible that she had a nonunion that has been chronic and she either bruised it or worse. Dr. Sousa agrees with making her weightbearing as tolerated and putting her in a walking boot, she was able to walk in this okay, and is advised to follow-up. She also requested new prescription for Lamictal as she is getting close to running out, and a referral to a neurologist since her old one is retiring or has retired. Radiography Diagnostic Testing: Clinical Impression(s) from Imaging Studies Ankle X-Ray 07/23/21 01:00 IMPRESSION: Transverse fracture through the medial malleolus Electronically Signed: Nestor Azevedo MD at 1:35 EST Tel , Service support , Discharge Plan Triage Chief Complaint: Seizure ED Provider: Dillon Vidal Dx/Rx/DC Orders Clinical Impression: Breakthrough seizure, Seizure disorder, Injury of right ankle Instructions: ED Seizure, Recurrent (Adult) Prescriptions: New lamotrigine [Lamictal] 200 mg tablet 200 mg PO BID Qty: 60 RF: 0 tramadol 50 MG tablet 50 mg PO Q4H PRN PRN (Reason: Pain) 3 Days Qty: 12 RF: 0 No Action lamotrigine [Lamictal] 200 mg Tablet 200 mg PO BID RF: 0 Primary Care Provider: Care Physician,No Primary Referrals: Korey Sousa DPM [STAFF PHYSICIAN] - (Call for appointment) Timoteo Pratt MD [STAFF PHYSICIAN] - (call for appt neurology) Care Physician,No Primary [Primary Care Provider] - Disposition Disposition: Home, Self Care Discharge Date/Time: 07/23/21 03:24
[2021-07-23 03:18] VITALS: BP 132/74; PULSE 78; RESP 17; TEMP 36.6; O2SAT 98
--- NOTE | 2021-07-23 03:23 | ED.RN ---
patient has scopalmine patch behind her ear that she applied today and has on hand from [facility] and also took PO zofran twice at home but did not keep that down
== END 2021-07-23 03:24 | disposition home or self-care (01) ==
PROVIDERS: Emergency Provider Emergency Medicine
DX: G40.909 Epilepsy, unspecified, not intractable, without status epilepticus (principal); Z79.899 Other long term (current) drug therapy; F17.210 Nicotine dependence, cigarettes, uncomplicated; S82.51XA Displaced fracture of medial malleolus of right tibia, initial encounter for closed fracture; X58.XXXA Exposure to other specified factors, initial encounter; Y93.9 Activity, unspecified; Y92.9 Unspecified place or not applicable; Y99.9 Unspecified external cause status
CPT/HCPCS: 73610; 96374; 99284; A4216

== ENCOUNTER 2021-10-12 07:05 | Emergency (ER) | payer MEDICAID, SELFPAY ==
[2021-10-12 07:06] VITALS: BP 122/83; PULSE 104; RESP 16; TEMP 36.1; O2SAT 98; BMI 29.1
--- NOTE | 2021-10-12 07:18 | EDS_ITS ---
HPI HPI - GI History of Present Illness Chief Complaint: Abd Pain Informant: patient Abdominal Pain/Flank Pain Onset: Yesterday Context: Gradual Onset Timing: Intermittent Quality: Sharp and Stabbing Location: RLQ and LLQ Worsened by: Nothing Relieved by: - (Walking) Nausea/Vomiting/Emesis GI Symptom: Negative for Nausea and Vomiting Diarrhea/Melena/Hematochezia GI Symptom: Negative for Diarrhea, Melena and Hematochezia Associated Symptoms Associated Symptoms: Negative for Dysuria, Frequency and Hematuria Narrative Narrative: Patient presents with lower abdominal pain that began yesterday. Patient states it is gradually getting worse. Patient states it is intermittent and comes on every 5 minutes or so. Patient describes the pain as sharp and stabbing. Patient states the pain is over both lower quadrants and suprapubic area. Patient states it is better when she is able to walk. Patient states nothing makes it worse. Patient denies any nausea or vomiting. Patient denies any diarrhea, melena, or hematochezia. Patient denies any dysuria, hematuria, or frequency. Patient states her last menstrual period was 09/18/2021. Patient denies any abnormal vaginal bleeding or discharge. [facility] Medical History (Updated 10/12/21 @ 11:[address] Jignesh Fuentes DO) Chlamydia Depression History of drug abuse History of substance abuse Light tobacco smoker <10 cigarettes per day Seizure disorder Home Medications lamotrigine [Lamictal] 200 mg PO BID 06/04/21 [History Last Taken Unknown] Allergy/AdvReac Type Severity Reaction Status Date / Time lactose AdvReac Upset Verified 10/12/21 07:08 Stomach tomato AdvReac Vomiting Verified 10/12/21 07:08 Family History Other Alcohol abuse Arthritis Depression Seizures Social History Smoking Status: Current every day smoker tobacco type: cigarettes alcohol intake: current alcohol intake frequency: a few times a week details: Hx of alcohol abuse substance use type: does not use, former substance user Date of last use: 2010 , opiates, painkillers and methamphetamine what type of physical activity do you participate in: walking frequency: daily ROS ROS ED Constitutional Constitutional ED: Denies chills or fever(s) Eyes Eyes: Denies blurry vision or change in vision ENT ENT ED: Denies rhinorrhea or sore throat Cardiovascular Cardiovascular: Denies chest pain or palpitations Respiratory/Chest Respiratory/Chest: Denies cough or dyspnea Gastrointestinal Gastrointestinal: Reports abdominal pain; Denies diarrhea, nausea or vomiting Genitourinary Genitourinary ED: Denies dysuria or hematuria Musculoskeletal Musculoskeletal: Reports back pain; Denies neck pain Integumentary Denies abscess or rash Neurologic Neurologic: Denies headache(s) or weakness Allergic/Immunologic Allergic/Immunologic ED: Denies mouth swelling or urticaria EXAM Physical Exam Const Vital Signs: 10/12/21 07:06 Temperature 97.0 F L Temperature Source Temporal Pulse Rate 104 H Respiratory Rate 16 Blood Pressure 122/83 H Blood Pressure Mean 96 Pulse Ox 98 Oxygen Delivery Method Room Air Positive well nourished and well developed General Appearance ED: well developed HEENT Reports moist mucous membranes Neck supple and no JVD Resp normal respiratory effort and clear to auscultation bilaterally Cardio regular rate, regular rhythm and no murmurs GI normal to inspection, nondistended, normoactive bowel sounds Palpation: soft and tender LLQ, RLQ and suprapubic Extremity normal to inspection General Extremety ED: Negative for edema or tenderness General Extremity: Negative for edema Neuro oriented x3, CN's II-XII intact bilaterally and no sensory deficits noted Sensorium / Orientation: alert Motor Exam: strength 5/5 throughout Psych mental status grossly normal Skin no rashes or lesions noted MDM MDM MDM Narrative Medical decision making narrative: Patient was given IV fluids, morphine, and Zofran. CBC was within normal limits. Comprehensive metabolic profile and lipase were within normal limits. Serum hCG was positive. Quantitative hCG was 27. Urinalysis does not show any evidence of urinary tract infection. Pelvic ultrasound was obtained. There is no evidence of ectopic . There is endometrial thickening. There is no gestational sac visualized. This was expected with a quantitative hCG of only 27. Patient was advised of her findings. Patient was instructed to follow-up with her primary care physician or [facility] in 2 to 3 days for reevaluation. Patient understood and was agreeable with the plan. All questions were answered. Lab Data Attestation: I reviewed the patient's lab results. Labs: Laboratory Results - last 24 hr 10/12/21 10/12/21 10/12/21 07:30 07:30 07:30 WBC 8.5 RBC 4.21 Hgb 13.6 Hct 39.2 MCV 93.1 MCH 32.3 H MCHC 34.7 RDW Std Deviation 43.7 RDW Coeff of Abiodun 12.7 Plt Count 237 MPV 9.5 Immature Gran % (Auto) 0.400 Neut % (Auto) 63.4 Lymph % (Auto) 22.0 Warrick % (Auto) 9.5 Eos % (Auto) 4.0 Baso % (Auto) 0.7 Absolute Neuts (auto) 5.4 Absolute Lymphs (auto) 1.86 Nucleated RBC % 0 Sodium 141 Potassium 4.2 Chloride 114 H Carbon Dioxide 22.0 Anion Gap 5 BUN 13 Creatinine 0.78 Estim Creat Clear Calc 105.42 Est GFR (MDRD) Af Amer 111 Est GFR (MDRD) Non-Af 92 BUN/Creatinine Ratio 16.8 Glucose 89 Calcium 8.8 Total Bilirubin 0.30 AST 10 L ALT 17 Alkaline Phosphatase 58 Total Protein 7.0 Albumin 3.7 Globulin 3.3 Albumin/Globulin Ratio 1.1 Lipase 93 HCG, Quant Serum , Qual POSITIVE H Urine Color Urine Clarity Urine pH Ur Specific [place] Urine Protein Urine Glucose (UA) Urine Ketones Urine Occult Blood Urine Nitrite Urine Bilirubin Urine Urobilinogen Ur Leukocyte Esterase Urine RBC Urine WBC Ur Squamous Epith Cells Urine Bacteria Urine Mucus Blood Type 10/12/21 10/12/21 10/12/21 07:30 08:08 09:50 WBC RBC Hgb Hct MCV MCH MCHC RDW Std Deviation RDW Coeff of Abiodun Plt Count MPV Immature Gran % (Auto) Neut % (Auto) Lymph % (Auto) [place] % (Auto) Eos % (Auto) Baso % (Auto) Absolute Neuts (auto) Absolute Lymphs (auto) Nucleated RBC % Sodium Potassium Chloride Carbon Dioxide Anion Gap BUN Creatinine Estim Creat Clear Calc Est GFR (MDRD) Af Amer Est GFR (MDRD) Non-Af BUN/Creatinine Ratio Glucose Calcium Total Bilirubin AST ALT Alkaline Phosphatase Total Protein Albumin Globulin Albumin/Globulin Ratio Lipase HCG, Quant 27 H Serum , Qual Urine Color Yellow Urine Clarity Clear Urine pH 6.5 Ur Specific [place] 1.010 Urine Protein Negative Urine Glucose (UA) Normal Urine Ketones Negative Urine Occult Blood Negative Urine Nitrite Negative Urine Bilirubin Negative Urine Urobilinogen Normal Ur Leukocyte Esterase Negative Urine RBC 0 SEEN Urine WBC 0 SEEN Ur Squamous Epith Cells 0-5 SEEN Urine Bacteria 0 SEEN Urine Mucus 0 SEEN Blood Type B POSITIVE Radiography Diagnostic Testing: Clinical Impression(s) from Imaging Studies Obstetrics Ultrasound 10/12/21 08:29 IMPRESSION: By last menstrual period 3 week 3 day . There is endometrial thickening. There is no visualized intrauterine gestational sac at this time. It should be noted that a 3 weeks 3 days is quite possible that the gestational sac would not be visualized. At the time of this study reported beta hCG is 27. Recommend follow-up beta hCG and ultrasound as clinically appropriate. Normal vascularity to both ovaries no torsion. Electronically Signed: Yara Bailey MD at 10:28 EDT , Discharge Plan Triage Chief Complaint: Abd Pain ED Provider: Jignesh Fuentes Dx/Rx/DC Orders Clinical Impression: Pelvic pain, Instructions: ED Pelvic Pain, Unknown Cause, ED , New Dx Prescriptions: No Action lamotrigine [Lamictal] 200 mg Tablet 200 mg PO BID RF: 0 Primary Care Provider: Care Physician,No Primary Referrals: Sharon Mcgregor DO [STAFF PHYSICIAN] - 2 Days Care Physician,No Primary [Primary Care Provider] - Disposition Disposition: Home, Self Care
[2021-10-12 07:47] LABS: Absolute Lymphocyte Count 1.86 X10^3/uL (0.83-4.51); Absolute Neutrophil Count 5.4 X10^3/uL (2.0-7.7); Basophil# 0.06 X10^3/uL; Basophil% 0.7 % (0-1); Eosinophil# 0.34 X10^3/uL; Hematocrit 39.2 % (37-47); Hemoglobin 13.6 g/dL (12.0-15.0); Lymphocyte # 1.86 X10^3/ul (0.83-4.51); Mean Corp Hgb Conc 34.7 g/dL (32-36); Mean Corpuscular Hgb 32.3 pg (27.0-32.0); Mean Corpuscular Volume 93.1 fL (81-99); Mean Platelet Vol. 9.5 fl (6.2-12.0); Monocyte% 9.5 % (0-10); NRBC Flagged by Analyzer 0 % (0-5); Neutrophil # 5.36 X10^3/uL (2.7-7.7); Neutrophil % 63.4 % (47-70); Platelet Count 237 K/mm3 (150-450); RBC Distribution Width CV 12.7 % (11.6-14.6); RBC Distribution Width SD 43.7 fl (35.1-43.9); Red Blood Count 4.21 M/mm3 (4.2-5.4); White Blood Count 8.5 K/mm3 (4.4-11.0)
--- NOTE | 2021-10-12 07:54 | ED.RN ---
attempt x 2 by this nurse for iv without success. Primary nurse aware
[2021-10-12 08:03] LABS: ALB/GLOB Ratio 1.1 RATIO (0.9-2.4); AST(SGOT) 10 U/L (15-37); Alanine Aminotransfer ALT/SGPT 17 U/L (13-56); Albumin, Serum 3.7 g/dL (3.2-5.0); Alkaline Phosphatase 58 U/L (45-117); Anion Gap 5 (5-15); BUN 13 mg/dL (7-18); BUN/Creat Ratio 16.8 RATIO (10-20); Calcium,Total 8.8 mg/dL (8.5-10.1); Chloride 114 mmol/L (98-107); Creatinine, Serum 0.78 mg/dL (0.55-1.02); EST Glomerular Filtration Rate 92 mL/min (>60); Est Glom Filt Rate - Afr Amer 111 mL/min (>60); Estimated Creatinine Clearance 105.42 ml/min; Globulin 3.3 g/dL (2.2-4.2); Glucose 89 mg/dL (74-106); Lipase 93 U/L (73-393); Potassium 4.2 mmol/L (3.5-5.1); Sodium Level 141 mmol/L (136-145)
[2021-10-12] MEDS: Ondansetron 4 MG/2 ML Vial IV (08:13)
[2021-10-12] MEDS: 0.9% Normal Saline 1,000 ML 1000 ML IV (08:13)
[2021-10-12] MEDS: Morphine 4 MG/ML Syringe IV (08:13)
[2021-10-12 08:21] LABS: Bacteria 0 SEEN /hpf (None Seen); Mucous, Urine 0 SEEN /hpf (<or=2+); Red Blood Cells-Urine 0 SEEN /hpf (0-5); White Blood Cells 0 SEEN /hpf (0-5)
[2021-10-12 08:27] LABS: Internal QC Validated? YES +Cl - CLEAR BKGD
[2021-10-12 08:27] LABS: Color, Urine Yellow (Yellow); Glucose, Dipstick Normal (Normal); Ketone-Dipstick Negative (Negative); Leukocyte Esterase-Dipstick Negative /ul (Negative); Nitrite-Dipstick Negative (Negative); Occult Blood-Urine Negative /ul (Negative); Protein-Dipstick Negative (Negative); Urine Bilirubin Dipstick Negative (Negative); Urine Clarity Clear (Clear); Urine Urobilinogen Normal (Normal); Urine pH 6.5 (5.0 - 8.0)
[2021-10-12 08:28] LABS: Pregnancy, Serum, hCG Quali. POSITIVE Negative
--- NOTE | 2021-10-12 08:29 | US_ITS ---
STUDY: FIRST TRIMESTER OBSTETRICAL ULTRASOUND REASON FOR EXAM: Female, 31 years old Pelvic pain -- HCG 27 LMP: 09/18/2021 TECHNIQUE: Transvaginal TECHNICAL QUALITY: Adequate. PRIOR ULTRASOUND: None. FINDINGS: There is no demonstrated intrauterine gestational sacThe estimated gestation age (EGA) by LMP is 3 weeks, 3 days. The estimated date of delivery (QUYEN) by LMP is 06/25/2022. The uterus measures 9.9 x 6.5 x 5.7 cm. There is no demonstrated uterine fibroid. The cervix is closed. Endometrium measures 15 mm per The right ovary measures 3.0 x 2.6 x 2.1 cm. There is no right ovarian cyst. There is no visualized right adnexal mass or complex lesion. The left ovary measures 2.4 x 2.5 x 1.7. There is no left ovarian cyst. There is no visualized left adnexal mass or complex lesion. There is minimal fluid in the cul de sac. US/Transvaginal w/Preg US IMPRESSION: By last menstrual period 3 week 3 day . There is endometrial thickening. There is no visualized intrauterine gestational sac at this time. It should be noted that a 3 weeks 3 days is quite possible that the gestational sac would not be visualized. At the time of this study reported beta hCG is 27. Recommend follow-up beta hCG and ultrasound as clinically appropriate. Normal vascularity to both ovaries no torsion. Electronically Signed: Yara Bailey MD at 10:28 EDT ,
[2021-10-12 08:46] LABS: Squamous Epithelial Cells - UA 0-5 SEEN /hpf (5-10)
[2021-10-12 08:47] LABS: hCG Titer Quant., Serum 27 mIU/mL (1-3)
[2021-10-12 11:44] VITALS: PULSE 98; RESP 17; O2SAT 97
== END 2021-10-12 11:47 | disposition home or self-care (01) ==
PROVIDERS: Emergency Provider Emergency Medicine; Visit Provider Emergency Medicine
DX: O99.891 Other specified diseases and conditions complicating pregnancy (principal); O99.331 Smoking (tobacco) complicating pregnancy, first trimester; R10.2 Pelvic and perineal pain; F17.210 Nicotine dependence, cigarettes, uncomplicated; Z3A.01 Less than 8 weeks gestation of pregnancy; Z79.899 Other long term (current) drug therapy
CPT/HCPCS: 36415; 76817; 80053; 81001; 83690; 84702; 84703; 85025; 86900; 86901; 96361; 96374; 96375; 99285; J7030; A4216; J2405

== ENCOUNTER 2021-10-25 00:03 | Emergency (ER) | payer MEDICAID, SELFPAY ==
[2021-10-25 00:04] VITALS: BP 140/83; BP 156/99; PULSE 117; RESP 18; TEMP 36; O2SAT 100; BMI 32.6
--- NOTE | 2021-10-25 00:30 | RAD_ITS ---
EXAM: XR LEFT KNEE, 3 VIEWS CLINICAL INDICATION: pain TECHNIQUE: Three views of the left knee. This report was created using [employer] report generation technology. COMPARISON: None. FINDINGS: BONES/JOINTS: Thin linear calcification adjacent to the medial femoral condyle at the junction of the metaphysis and epiphysis. No acute fracture. No subluxation. Normal alignment. Preservation of the joint space. No sclerotic or destructive changes observed. SOFT TISSUES: Unremarkable. No soft tissue swelling or gas. No radiopaque foreign body. RAD/Knee 3 Views IMPRESSION: 1. No acute abnormality. 2. Thin linear calcification adjacent to the medial femoral condyle consistent with a Laura-Stieda calcification. This suggests prior medial collateral ligament injury. Electronically Signed: Alberto Garcia MD at 0:56 EDT ,
--- NOTE | 2021-10-25 01:20 | EDS_ITS ---
HPI History of Present Illness Chief Complaint: Lower Extremity Injury Narrative Narrative: Patient is a 31-year-old female who states that over the last 2 to 3 days she has noticed some intermittent pain in her left knee. She states there is been no trauma but she is noticed that if she tries to go up and down stairs or bend down that it feels like the knee locks and she cannot have full range of motion. She states today after returning home from work she was changing her clothes when she had increased pain and secondary to this presents to the hospital for evaluation. [facility] Medical History (Updated 10/25/21 @ 01:[address] Charbel Zavala DO) Chlamydia Depression History of drug abuse History of substance abuse Light tobacco smoker <10 cigarettes per day Seizure disorder Home Medications lamotrigine [Lamictal] 200 mg PO BID 06/04/21 [History Last Taken Unknown] Allergy/AdvReac Type Severity Reaction Status Date / Time lactose AdvReac Upset Verified 10/12/21 07:08 Stomach tomato AdvReac Vomiting Verified 10/12/21 07:08 Family History Other Alcohol abuse Arthritis Depression Seizures Social History Smoking Status: Current every day smoker tobacco type: cigarettes alcohol intake: current alcohol intake frequency: a few times a week details: Hx of alcohol abuse substance use type: does not use, former substance user Date of last use: 2010 , opiates, painkillers and methamphetamine what type of physical activity do you participate in: walking frequency: daily ROS ROS ED Constitutional Constitutional ED: Denies chills or fever(s) ENT ENT ED: Denies sore throat Cardiovascular Cardiovascular: Denies chest pain Respiratory/Chest Respiratory/Chest: Denies cough or dyspnea Gastrointestinal Gastrointestinal: Denies abdominal pain, diarrhea, nausea or vomiting Genitourinary Genitourinary ED: Denies dysuria Musculoskeletal Musculoskeletal: Reports arthralgias; Denies myalgias Integumentary Denies rash Neurologic Neurologic: Denies headache(s) Hematologic/Lymphatic Hematologic/Lymphatic: Denies easy bleeding or easy bruising EXAM Physical Exam Const Vital Signs: 10/25/21 00:04 Temperature 96.8 F L Temperature Source Temporal Pulse Rate 117 H Respiratory Rate 18 Blood Pressure 140/83 H Blood Pressure Mean 102 Pulse Ox 100 Oxygen Delivery Method Room Air Positive well nourished and well developed General Appearance ED: well developed Eyes PERRL and EOMs intact bilaterally Neck supple Resp normal respiratory effort and clear to auscultation bilaterally Cardio regular rhythm Rate: tachycardic Extremity Extremity Narrative: Left lower extremity is neurovascularly intact. There is slight asymmetric swelling of the left leg compared to the right. There is a small effusion noted over top the left knee. There is faint warmth at the site but no overlying erythema or obvious signs of infection. There is pain with palpation over top the lateral meniscus. Knee ligaments are stable and patellar tendon is intact. There is increased pain and crepitance noted with Verna's testing. Active and passive range of motion is decreased secondary to pain. Remainder of the exam is normal Neuro oriented x3 and CN's II-XII intact bilaterally Sensorium / Orientation: alert Psych mental status grossly normal Skin no rashes or lesions noted MDM MDM MDM Narrative Medical decision making narrative: Patient presented to the ER afebrile but mildly tachycardic. She denied any recent trauma but reported increased pain with motion of her left knee. Based on her report of it feels like it locks and catches as well as the fact she has increased pain and crepitance with Verna's I feel she has a tear to her lateral meniscus. X-ray was obtained which revealed no acute finding. She does have slight asymmetric swelling between the left leg and right and she is which is a hypercoagulable state. Therefore we will obtain a venous duplex to rule out DVT as a cause of her symptoms but I cannot perform 1 at this time in the evening. Therefore should be given an outpatient order form to have done the following day. At this time however she does not have pain if she is at rest and Homans' sign is negative and therefore I do believe that the pain is all related to the meniscus and not DVT. She is also afebrile and has no overlying erythema or signs of infection so I do not feel this is a septic joint. Therefore do not feel there is need for blood work at this time. Patient will be placed in a knee immobilizer and will follow up with orthopedics for further evaluation but at this time will be discharged home and advised on symptomatic care for what is most likely a meniscus injury Radiography Diagnostic Testing: Clinical Impression(s) from Imaging Studies Knee X-Ray 10/25/21 00:30 IMPRESSION: 1. No acute abnormality. 2. Thin linear calcification adjacent to the medial femoral condyle consistent with a Laura-Stieda calcification. This suggests prior medial collateral ligament injury. Electronically Signed: Alberto Garcia MD at 0:56 EDT , X-ray as interpreted by the emergency medicine physician reveals no acute knee effusion knee fracture or dislocation. Discharge Plan Triage Chief Complaint: Lower Extremity Injury ED Provider: Charbel Zavala Dx/Rx/DC Orders Clinical Impression: Acute lateral meniscal injury of left knee Instructions: ED Meniscal Injury Knee Poss, ED Knee Sprain Prescriptions: No Action lamotrigine [Lamictal] 200 mg Tablet 200 mg PO BID RF: 0 Other Ambulatory Orders: Venous Duplex US, Unilateral (Routine) Facility: [facility] - Location: [facility] Ordered By: Dr. Charbel Zavala Primary Care Provider: Care Physician,No Primary Referrals: Alberto Segura DO [STAFF PHYSICIAN] - 3-5 Days Care Physician,No Primary [Primary Care Provider] - Activity Restrictions/Additional Instructions: Please wear the knee immobilizer for stabilization and follow-up with orthopedics to get further evaluation for your possible meniscus injury. Please also return as directed for your venous duplex/ultrasound to ensure there is no blood clot/DVT as a cause of your pain and swelling. Disposition Disposition: Home, Self Care Discharge Date/Time: 10/25/21 01:50
== END 2021-10-25 01:50 | disposition home or self-care (01) ==
PROVIDERS: Emergency Provider Emergency Medicine; Visit Provider Emergency Medicine
DX: S89.92XA Unspecified injury of left lower leg, initial encounter (principal); F17.210 Nicotine dependence, cigarettes, uncomplicated; M79.605 Pain in left leg; Z79.899 Other long term (current) drug therapy; X58.XXXA Exposure to other specified factors, initial encounter
CPT/HCPCS: 73562; 93971; 99283

== ENCOUNTER 2021-10-25 11:51 | Outpatient (CLI) | payer MEDICAID, SELFPAY ==
--- NOTE | 2021-10-25 11:53 | VDLE_ITS ---
Reason For Study: Pain Procedure LEFT This is a venous duplex using B-mode, color GSV is normal. flow and spectral Doppler. CFV is compressible, spontaneous, phasic, Exam performed in department. competent, and demonstrates normal A preliminary report was called and/or faxed augmentation. to ED. FV is compressible, spontaneous, phasic, competent and demonstrates normal augmentation. POP V is compressible, spontaneous, phasic, competent and demonstrates normal augmentation. T/P Trunk is compressible. PTV is compressible. LT PerV is compressible. Hypoechoic, non vascular structure noted Lt Pop Fossa measuring 1.78cm x 3.87cm. VL/Venous Duplex US, Unilateral Interpretation Summary There is no evidence of left lower extremity deep vein thrombosis. Left great s aphenous vein appears patent and compressible segmentally. Left popliteal fossa 1.78 x 3.87cm non-vas cular structure consistent with a Jones's cyst. Ordering Physician: Charbel Zavala Performed By: Esther Stout, XAVI, RVT
== END 2021-10-25 23:59 | disposition home or self-care (01) ==
PROVIDERS: Visit Provider Emergency Medicine
DX: M79.605 Pain in left leg (principal)
CPT/HCPCS: 93971

== ENCOUNTER 2021-10-27 09:52 | Outpatient (CLI) | payer MEDICAID, SELFPAY ==
[2021-10-27 10:13] LABS: Absolute Lymphocyte Count 1.87 X10^3/uL (0.83-4.51); Absolute Neutrophil Count 5.4 X10^3/uL (2.0-7.7); Basophil# 0.07 X10^3/uL; Basophil% 0.8 % (0-1); Eosinophil# 0.26 X10^3/uL; Eosinophils% 3.1 % (0-5); Hematocrit 38.5 % (37-47); Hemoglobin 13.3 g/dL (12.0-15.0); Lymphocyte # 1.87 X10^3/ul (0.83-4.51); Lymphocyte % 22.1 % (19-41); Mean Corp Hgb Conc 34.5 g/dL (32-36); Mean Corpuscular Hgb 31.9 pg (27.0-32.0); Mean Corpuscular Volume 92.3 fL (81-99); Monocyte# 0.84 X10^3/uL; Monocyte% 9.9 % (0-10); NRBC Flagged by Analyzer 0 % (0-5); Neutrophil # 5.41 X10^3/uL (2.7-7.7); Neutrophil % 63.7 % (47-70); Platelet Count 286 K/mm3 (150-450); RBC Distribution Width CV 12.4 % (11.6-14.6); RBC Distribution Width SD 42.5 fl (35.1-43.9); Red Blood Count 4.17 M/mm3 (4.2-5.4); White Blood Count 8.5 K/mm3 (4.4-11.0)
[2021-10-27 11:15] LABS: HIV - WCH Non-Reactive (Nonreactive); Hepatitis B Surface Antigen Non-Reactive (Nonreactive); Hepatitis C Antibody Non-Reactive (Nonreactive); Rubella IgG Reactive (Nonreactive); Syphilis Antibodies Non-reactive
[2021-10-28 21:07] LABS: Chlamydia By Nucleic Acid AMP Negative (Negative)
[2021-10-28 22:21] LABS: Gonococcus By Nucleic Acid AMP Negative (Negative)
[2021-10-29 20:18] LABS: Lamotrigine (Lamictal) Level 5.7 ug/mL (2.0-20.0)
== END 2021-10-27 23:59 | disposition home or self-care (01) ==
LOC: WOBLAB 09:53
PROVIDERS: Visit Provider Obstetrics & Gynecology
DX: Z34.81 Encounter for supervision of other normal pregnancy, first trimester (principal)
CPT/HCPCS: 36415; 82542; 85025; 86703; 86762; 86780; 86803; 87086; 87088; 87340; 87491; 87591

== ENCOUNTER 2021-11-05 17:32 | Emergency (ER) | payer MEDICAID, SELFPAY ==
[2021-11-05 17:33] VITALS: BP 138/80; PULSE 115; RESP 20; TEMP 36.4; O2SAT 100; BMI 30.8
--- NOTE | 2021-11-05 19:17 | EKG12_ITS ---
Test Reason : DYSRHYTHMIA Blood Pressure : / mmHG Vent. Rate : 094 BPM Atrial Rate : 094 BPM P-R Int : 132 ms QRS Dur : 086 ms QT Int : 350 ms P-R-T Axes : 058 051 023 degrees QTc Int : 437 ms Normal sinus rhythm Normal ECG Confirmed by JOAQUIN MUELLER, CLAUDIA ([id number]), magazine editor HOSEA GOLD ([id number]) on 11/07/2021 1:00:36 PM Referred By: BB Confirmed By:TRISTA NUÑEZ MD
[2021-11-05 19:42] LABS: Absolute Lymphocyte Count 2.79 X10^3/uL (0.83-4.51); Absolute Neutrophil Count 5.7 X10^3/uL (2.0-7.7); Basophil# 0.05 X10^3/uL; Basophil% 0.5 % (0-1); Eosinophil# 0.28 X10^3/uL; Eosinophils% 2.9 % (0-5); Hemoglobin 12.5 g/dL (12.0-15.0); Lymphocyte # 2.79 X10^3/ul (0.83-4.51); Lymphocyte % 28.9 % (19-41); Mean Corp Hgb Conc 34.7 g/dL (32-36); Mean Corpuscular Volume 92.1 fL (81-99); Monocyte# 0.77 X10^3/uL; NRBC Flagged by Analyzer 0 % (0-5); Neutrophil # 5.72 X10^3/uL (2.7-7.7); Neutrophil % 59.4 % (47-70); Platelet Count 284 K/mm3 (150-450); RBC Distribution Width CV 12.3 % (11.6-14.6); RBC Distribution Width SD 41.1 fl (35.1-43.9); Red Blood Count 3.91 M/mm3 (4.2-5.4); White Blood Count 9.6 K/mm3 (4.4-11.0)
--- NOTE | 2021-11-05 19:48 | RAD_ITS ---
INDICATION: chest pain -- - shield abd please EXAMINATION/TECHNIQUE: X-RAY - XR Chest 1 View COMPARISON: None. FINDINGS: The lungs are clear. The cardiomediastinal silhouette is unremarkable. No pleural effusion or pneumothorax. No acute osseous abnormalities. RAD/Chest 1 View (Portable) IMPRESSION: No acute radiographic abnormalities. Electronically Signed: Dennys Houser MD at 20:15 EDT ,
[2021-11-05 19:55] LABS: Anion Gap 5 (5-15); BUN 9 mg/dL (7-18); BUN/Creat Ratio 17.7 RATIO (10-20); Calcium,Total 8.7 mg/dL (8.5-10.1); Chloride 110 mmol/L (98-107); Creatinine, Serum 0.51 mg/dL (0.55-1.02); EST Glomerular Filtration Rate 150 mL/min (>60); Est Glom Filt Rate - Afr Amer 181 mL/min (>60); Estimated Creatinine Clearance 161.23 ml/min; Glucose 87 mg/dL (74-106); Potassium 3.8 mmol/L (3.5-5.1); Sodium Level 140 mmol/L (136-145)
[2021-11-05 20:01] LABS: Troponin-I HS (w/2H Reflex) < 3 pg/mL (3.0-54.0)
[2021-11-05 20:28] LABS: D-Dimer Quantitative (DVT/PE) < 0.27 FEU/ug/m (0.27-0.49)
[2021-11-05 21:20] LABS: Troponin-I HS < 3 pg/mL (3.0-54.0)
[2021-11-05 21:47] LABS: Reflex Troponin-HS? (from REC) Y
--- NOTE | 2021-11-05 22:08 | EDS_ITS ---
HPI History of Present Illness Chief Complaint: Anxiety Informant: patient Onset/Context/Timing Onset: Hours (2) Activity at onset: sudden, onset and rest Timing: Continuous Quality: Positive for Tightness Location: Substernal Current Severity: Mild Maximum Severity: Severe Worsened By: Exertion Relieved By: Rest Associated Symptoms: Positive for Dyspnea and Lightheadedness Narrative Narrative: Patient states she was at work on her break and suddenly started feeling chest discomfort, shortness of breath, lightheadedness, and just kind of weak all over. She did not necessarily feel palpitations but when her colleague checked her pulse it was fast. She states she does not feel as bad now but still feels the symptoms although they seem to be improving. She denies any recent travel or history of blood clots/DVT. She is a smoker but denies taking any oral contraceptive pills. However she is currently around 7 weeks. She had this confirmed with an ultrasound showing an intrauterine at her OBs office. She denies having any pelvic pain or vaginal bleeding lately. Prior Similar Symptoms: No Recent Illness/Hospitalization: No CVD Risk Factors: Positive for Smoking; Negative for Hypertension, Diabetes, Hypercholesterolemia and Family History 1' </=55 PE Risk Factors: Negative for Recent Travel/Surgery, Recent Immobilization, Prior DVT or PE, Cancer and OCP + Smoking + >/=35 PFSH PFSH Medical History Chlamydia Depression History of drug abuse History of substance abuse Light tobacco smoker <10 cigarettes per day Seizure disorder Home Medications lamotrigine [Lamictal] 200 mg PO BID 06/04/21 [History Last Taken Unknown] Allergy/AdvReac Type Severity Reaction Status Date / Time lactose AdvReac Upset Verified 11/05/21 17:35 Stomach tomato AdvReac Vomiting Verified 11/05/21 17:35 Family History Other Alcohol abuse Arthritis Depression Seizures Social History Smoking Status: Current every day smoker tobacco type: cigarettes alcohol intake: current alcohol intake frequency: a few times a week details: Hx of alcohol abuse substance use type: does not use, former substance user Date of last use: 2011 , opiates, painkillers and methamphetamine what type of physical activity do you participate in: walking frequency: daily ROS ROS ED Constitutional Constitutional ED: Reports malaise; Denies chills or fever(s) Eyes Eyes: Denies change in vision or diplopia ENT ENT ED: Denies rhinorrhea or sore throat Cardiovascular Cardiovascular: Reports as per HPI, chest pain and palpitations; Denies orthopnea or pedal edema Respiratory/Chest Respiratory/Chest: Reports dyspnea; Denies cough or orthopnea Gastrointestinal Gastrointestinal: Denies abdominal pain, diarrhea, nausea or vomiting Genitourinary Genitourinary ED: Denies dysuria or hematuria Musculoskeletal Musculoskeletal: Denies back pain or neck pain Integumentary Denies abscess or rash Neurologic Neurologic: Denies headache(s), paresthesias or weakness Psychiatric Psychiatric: Denies anxiety or suicidal thoughts EXAM Physical Exam Const Vital Signs: 11/05/21 17:33 11/05/21 19:38 11/05/21 22:33 Temperature 97.6 F L Temperature Source Temporal Pulse Rate 115 H 88 Respiratory Rate 20 H 17 Blood Pressure 138/80 H Blood Pressure Mean 99 Pulse Ox 100 99 Oxygen Delivery Method Room Air Room Air Positive well nourished and well developed General Appearance ED: well developed and NAD HEENT Reports moist mucous membranes normocephalic and atraumatic Eyes PERRL and EOMs intact bilaterally Neck full ROM and supple Resp normal respiratory effort and clear to auscultation bilaterally Cardio regular rate, regular rhythm and no murmurs GI non-tender and non-distended Auscultation: normoactive bowel sounds Palpation: soft Back/Spine no CVA tenderness General Back: other FROM Extremity normal to inspection and no calf tenderness General Extremety ED: Negative for edema, pulses abnormal or tenderness General Extremity: Negative for edema or pulses abnormal Neuro oriented x3, CN's II-XII intact bilaterally and no sensory deficits noted Sensorium / Orientation: awake and alert Motor Exam: strength 5/5 throughout Skin no rashes or lesions noted and no wounds Heart Score History: Moderately Suspicious ECG: Normal Age: </= 45 years Risk Factors: 1 or 2 Risk Factors Troponin: </= Normal Limit Score: 2 MDM MDM MDM Narrative Medical decision making narrative: Work-up was unremarkable including a negative D-dimer ruling out pulmonary embolus as cause for symptoms, her initial troponin was negative, her EKG was normal, and we did a delta troponin/second measurement 2 hours later, it was negative as well for a delta of 0. Patient was asymptomatic and discharged in stable condition to follow-up closely with her PCP. As I discussed with her difficult to rule out a nonlethal uncomfortable transient dysrhythmia, she was asking about anxiety/panic attack, she has had anxiety issues in the past, and denies any trigger for an anxiety attack here, and I would not necessarily assume that this was psychogenic. Lab Data Attestation: I reviewed the patient's lab results. Labs: Laboratory Results - last 24 hr 11/05/21 11/05/21 11/05/21 19:34 19:34 19:34 WBC 9.6 RBC 3.91 L Hgb 12.5 Hct 36.0 L MCV 92.1 MCH 32.0 MCHC 34.7 RDW Std Deviation 41.1 RDW Coeff of Abiodun 12.3 Plt Count 284 MPV 9.0 Immature Gran % (Auto) 0.300 Neut % (Auto) 59.4 Lymph % (Auto) 28.9 [place] % (Auto) 8.0 Eos % (Auto) 2.9 Baso % (Auto) 0.5 Absolute Neuts (auto) 5.7 Absolute Lymphs (auto) 2.79 Nucleated RBC % 0 D-Dimer Quant (PE/DVT) < 0.27 L Sodium 140 Potassium 3.8 Chloride 110 H Carbon Dioxide 25.0 Anion Gap 5 BUN 9 Creatinine 0.51 L Estim Creat Clear Calc 161.23 Est GFR (MDRD) Af Amer 181 Est GFR (MDRD) Non-Af 150 BUN/Creatinine Ratio 17.7 Glucose 87 Calcium 8.7 Troponin I High Sens 11/05/21 11/05/21 19:34 21:00 WBC RBC Hgb Hct MCV MCH MCHC RDW Std Deviation RDW Coeff of Abiodun Plt Count MPV Immature Gran % (Auto) Neut % (Auto) Lymph % (Auto) [place] % (Auto) Eos % (Auto) Baso % (Auto) Absolute Neuts (auto) Absolute Lymphs (auto) Nucleated RBC % D-Dimer Quant (PE/DVT) Sodium Potassium Chloride Carbon Dioxide Anion Gap BUN Creatinine Estim Creat Clear Calc Est GFR (MDRD) Af Amer Est GFR (MDRD) Non-Af BUN/Creatinine Ratio Glucose Calcium Troponin I High Sens < 3 L < 3 L Radiography Chest X-Ray - ED: 1 View, Read by ED Physician, Normal and No Acute Disease Diagnostic Testing: Clinical Impression(s) from Imaging Studies Chest X-Ray 11/05/21 19:48 IMPRESSION: No acute radiographic abnormalities. Electronically Signed: Dennys Houser MD at 20:15 EDT , Rhythm Strip Rhythm Strip: Sinus Rhythm Rate: 90 Ectopy: None EKG Initial EKG: Attestation: I personally reviewed and interpreted this EKG as follows: Interpretation: Sinus Rhythm and No Acute Injury Pattern Comments: Normal EKG Discharge Plan Triage Chief Complaint: Anxiety ED Provider: Dillon Vidal Dx/Rx/DC Orders Clinical Impression: Chest pain, Palpitations Instructions: ED Chest Pain, Uncertain Cause, ED Palpitations Prescriptions: No Action lamotrigine [Lamictal] 200 mg Tablet 200 mg PO BID RF: 0 Stand Alone Forms: ED Work / School Excuse Primary Care Provider: Care Physician,No Primary Referrals: Partha Cavazos MD [NON-STAFF] - 3-5 Days Charbel Linn MD [STAFF PHYSICIAN] - 3-5 Days Disposition Disposition: Home, Self Care Discharge Date/Time: 11/05/21 22:35
[2021-11-05 22:33] VITALS: PULSE 88; RESP 17; O2SAT 99
== END 2021-11-05 22:35 | disposition home or self-care (01) ==
PROVIDERS: Emergency Provider Emergency Medicine; Visit Provider Emergency Medicine
DX: O99.891 Other specified diseases and conditions complicating pregnancy (principal); O99.331 Smoking (tobacco) complicating pregnancy, first trimester; R00.2 Palpitations; F17.210 Nicotine dependence, cigarettes, uncomplicated; R07.9 Chest pain, unspecified; Z3A.01 Less than 8 weeks gestation of pregnancy
CPT/HCPCS: 71045; 80048; 84484; 85025; 85379; 93005; 99284; A4216

== ENCOUNTER 2021-12-03 19:57 | Emergency (ER) | payer OTHER, MEDICAID, SELFPAY ==
[2021-12-03 19:58] VITALS: BP 127/83; PULSE 123; RESP 14; TEMP 36.6; O2SAT 98; BMI 31.9
--- NOTE | 2021-12-03 20:10 | CT_ITS ---
STUDY: CT BRAIN WITHOUT CONTRAST REASON FOR EXAM: Female, 31 years old. ABRASION AND HEMATOMA TO LT EYEBROW,? LOC HX:SEIZURES-TAKES MEDS RADIATION DOSAGE (If Supplied By Facility): CTDIvol = ( 44.99 ) mGy, DLP = ( 812.98 ) mGycm TECHNIQUE: Transaxial CT imaging of the brain was performed without administration of intravenous contrast material. Individualized dose optimization techniques were used for this CT. COMPARISON: No relevant priors. FINDINGS: Mild soft tissue swelling of the left supraorbital soft tissues. Normal calvarium. Normal size ventricles and extra-axial spaces for the patient''s age. Normal white matter tracts of the cerebral hemispheres. Normal basal ganglia and thalami. Normal brainstem. Normal cerebellum. There is no intracranial hemorrhage. There are no findings of an acute ischemic infarction. Normal visualized paranasal sinuses. CT/Brain/Head without Contrast IMPRESSION: No acute intracranial hemorrhage or mass effect. Left supraorbital soft tissue swelling/injury. Electronically Signed: Austin Kellogg MD ([place]) at 20:31 EDT Reading Location ID and State: [facility] / [place] , Service support ,
--- NOTE | 2021-12-03 20:11 | EX.ED.DYSGE1 ---
HPI History of Present Illness Chief Complaint: Head Injury Informant: patient Onset/Context/Timing Onset: Today Current Severity: Mild Maximum Severity: Moderate Narrative Narrative: Patient presents secondary to head injury after having a seizure. She is a history of seizure disorder and is on Lamictal. She had a seizure at work and fell hitting her head. EMS responded. She was ANO x4 at that time and wanted to transfer by private vehicle for evaluation. Patient complains of mild headache. She is currently 11 weeks but denies striking her abdomen or having any abdominal cramping. Blood type is be positive and she has had a prior ultrasound verifying intrauterine . [facility] Medical History (Updated 12/03/21 @ 20:[address] Sharon Quispe MD) Chlamydia Depression History of drug abuse History of substance abuse Light tobacco smoker <10 cigarettes per day Seizure disorder Home Medications lamotrigine [Lamictal] 200 mg PO BID 06/04/21 [History Last Taken Unknown] Allergy/AdvReac Type Severity Reaction Status Date / Time lactose AdvReac Upset Verified 12/03/21 19:58 Stomach tomato AdvReac Vomiting Verified 12/03/21 19:58 Family History Other Alcohol abuse Arthritis Depression Seizures Social History Smoking Status: Current every day smoker tobacco type: cigarettes alcohol intake: current alcohol intake frequency: a few times a week details: Hx of alcohol abuse substance use type: does not use, former substance user Date of last use: 2010 , opiates, painkillers and methamphetamine what type of physical activity do you participate in: walking frequency: daily ROS ROS ED Constitutional Constitutional ED: Denies chills or fever(s) Eyes Eyes: Denies change in vision ENT ENT ED: Denies sore throat Cardiovascular Cardiovascular: Denies chest pain Respiratory/Chest Respiratory/Chest: Denies cough or dyspnea Gastrointestinal Gastrointestinal: Denies abdominal pain, diarrhea, nausea or vomiting Genitourinary Genitourinary ED: Denies dysuria Musculoskeletal Musculoskeletal: Reports arthralgias; Denies back pain Integumentary Reports Abrasions Neurologic Neurologic: Reports headache(s); Denies weakness Allergic/Immunologic Allergic/Immunologic ED: Denies urticaria EXAM Physical Exam Const Vital Signs: 12/03/21 19:58 12/03/21 20:11 Temperature 98 F Temperature Source Temporal Pulse Rate 123 H Respiratory Rate 14 Respiratory Effort Normal Non-Labored Respiratory Depth Normal Respiratory Pattern Normal Blood Pressure 127/83 H Blood Pressure Mean 97 Pulse Ox 98 Oxygen Delivery Method Room Air Room Air Positive well nourished and well developed General Appearance ED: well developed HEENT HEENT Narrative: Edema and abrasions noted to the left lateral eyebrow. No periorbital bony tenderness. Extraocular movements intact. Eyes PERRL and EOMs intact bilaterally Neck supple Chest Wall inspection of chest normal and palpation of chest normal Resp normal respiratory effort and clear to auscultation bilaterally Cardio regular rate and regular rhythm GI normal to inspection, nondistended, normoactive bowel sounds and non-tender Palpation: soft Extremity normal to inspection Neuro oriented x3 and no sensory deficits noted Sensorium / Orientation: alert Motor Exam: strength 5/5 throughout Psych mental status grossly normal Skin Skin Narrative: Facial wounds as noted above. MDM MDM MDM Narrative Medical decision making narrative: Blood type is be positive. Patient did have a tetanus shot in 2019. Wound care ordered. Head CT obtained along with heart tones. Radiography Diagnostic Testing: Clinical Impression(s) from Imaging Studies Brain CT 12/03/21 20:10 IMPRESSION: No acute intracranial hemorrhage or mass effect. Left supraorbital soft tissue swelling/injury. Electronically Signed: Austin Kellogg MD ([place]) at 20:31 EDT Reading Location ID and State: [facility] / [place] , Service support , Treatment and Re-Evaluation Narrative: CT head shows no acute intracranial abnormalities. Soft tissue swelling noted. No lacerations noted that require repair. heart tones were measured at 168. Test results discussed with patient and family at bedside. She will be discharged home to continue supportive care. Return instructions provided. Discharge Plan Triage Chief Complaint: Head Injury ED Provider: Sharon Quispe Dx/Rx/DC Orders Clinical Impression: Breakthrough seizure, Contusion of face Instructions: ED Facial Contusion, ED Seizure, Recurrent (Adult) Prescriptions: No Action lamotrigine [Lamictal] 200 mg Tablet 200 mg PO BID RF: 0 Primary Care Provider: Care Physician,No Primary Referrals: Bebeto West MD [STAFF PHYSICIAN] - 1-2 Weeks Care Physician,No Primary [Primary Care Provider] - Disposition Disposition: Home, Self Care
[2021-12-03] MEDS: Acetaminophen 500 MG Tablet 1000 MG PO (20:28)
[2021-12-03 20:56] VITALS: BP 148/100; PULSE 101; RESP 18; O2SAT 97
== END 2021-12-03 20:57 | disposition home or self-care (01) ==
PROVIDERS: Emergency Provider Emergency Medicine; Visit Provider Emergency Medicine
DX: O99.891 Other specified diseases and conditions complicating pregnancy (principal); R56.9 Unspecified convulsions; O9A.211 Injury, poisoning and certain other consequences of external causes complicating pregnancy, first trimester; O99.331 Smoking (tobacco) complicating pregnancy, first trimester; S00.83XA Contusion of other part of head, initial encounter; F17.210 Nicotine dependence, cigarettes, uncomplicated; Z79.899 Other long term (current) drug therapy; Z3A.11 11 weeks gestation of pregnancy; W19.XXXA Unspecified fall, initial encounter
CPT/HCPCS: 70450; 99283

== ENCOUNTER 2021-12-06 20:38 | Emergency (ER) | payer MEDICAID, SELFPAY ==
[2021-12-06 20:38] VITALS: BP 136/70; PULSE 115; RESP 18; TEMP 36.6; O2SAT 96; BMI 30.4
--- NOTE | 2021-12-06 20:51 | EX.ED.UPPERE ---
HPI History of Present Illness Chief Complaint: Upper Extremity Injury Detail of Chief Complaint: Injury to left ring finger that occurred 3 days ago Informant: patient Narrative Narrative: Patient presents to the emergency department with injury to her left ring finger that occurred 3 days ago. Patient states that she had a seizure 3 days ago and was seen in the emergency department. Patient apparently complained of pain but received only Tylenol and no imaging. She continues to complain of pain and bruising in difficulty bending the finger. Patient is ambidextrous. PFSH PFSH Medical History (Updated 12/06/21 @ 21:[address] Camryn Rahman DO) Chlamydia Depression History of drug abuse History of substance abuse Light tobacco smoker <10 cigarettes per day Seizure disorder Home Medications lamotrigine [Lamictal] 200 mg PO BID 06/04/21 [History Last Taken 12/06/21] Allergy/AdvReac Type Severity Reaction Status Date / Time lactose AdvReac Upset Verified 12/06/21 20:41 Stomach tomato AdvReac Vomiting Verified 12/06/21 20:41 Family History Other Alcohol abuse Arthritis Depression Seizures Social History Smoking Status: Current every day smoker tobacco type: cigarettes alcohol intake: current alcohol intake frequency: a few times a week details: Hx of alcohol abuse substance use type: does not use, former substance user Date of last use: 2010 , opiates, painkillers and methamphetamine what type of physical activity do you participate in: walking frequency: daily ROS ROS ED Constitutional Constitutional ED: Reports systems reviewed and no addt'l complaints, except as documented; Denies body ache(s), change in weight or chills Eyes Eyes: Denies acute decrease in peripheral vision, change in vision, double vision or loss of vision ENT ENT ED: Reports none; Denies ear pain, lip swelling, loss taste/smell, neck pain, otalgia or sore throat Cardiovascular Cardiovascular: Reports none; Denies abdominal pain, chest pain with activity, leg edema, lightheadedness, palpitations, rapid heart rate or syncope Respiratory/Chest Respiratory/Chest: Reports none; Denies change in mental status, dry cough, dyspnea, hemoptysis, shortness of breath at rest or shortness of breath with exertion Gastrointestinal Gastrointestinal: Reports none; Denies abdominal pain, change in stool character, diarrhea, hematemesis, hematochezia, melena, rectal bleeding or vomiting Genitourinary Genitourinary ED: Reports none; Denies abdominal discomfort, anuria, dysuria, genital pain or polyuria Musculoskeletal Musculoskeletal: Reports none and other Details: Pain left ring finger ; Denies arthralgias, back pain, difficulty walking, extremity pain, muscle weakness or myalgias Integumentary Reports none; Denies abscess or rash Neurologic Neurologic: Reports none; Denies abnormal gait, confusion, focal weakness, frequent falls, headache(s), loss of vision, numbness, paresthesias, radicular pain, vertigo or weakness Psychiatric Psychiatric: Reports systems reviewed and no addt'l complaints, except as documented and none; Denies behavioral changes, confusion, difficulty concentrating, hallucinations, suicidal ideation, tactile hallucinations or visual hallucinations Endocrine Endocrinology: Denies none, cold intolerance, excessive sweating, fatigue or heat intolerance Hematologic/Lymphatic Hematologic/Lymphatic: Reports none; Denies anemia, easy bleeding or easy bruising Allergic/Immunologic Allergic/Immunologic ED: Denies as per HPI, none, lip swelling, mouth swelling, throat swelling, tongue swelling or hives EXAM Physical Exam Const Vital Signs: 12/06/21 20:38 Temperature 97.8 F Temperature Source Temporal Pulse Rate 115 H Respiratory Rate 18 Blood Pressure 136/70 H Blood Pressure Mean 92 Pulse Ox 96 Oxygen Delivery Method Room Air Positive well nourished and well developed General Appearance ED: well developed and NAD HEENT Reports TM's clear and moist mucous membranes normocephalic and atraumatic; Negative for trauma or tenderness Tympanic Membrane ED: Yes TM's clear Eyes PERRL and EOMs intact bilaterally General Eye ED: Negative for pale conjunctiva or scleral icterus Neck no lymphadenopathy, supple and no JVD General: Negative for tenderness Chest Wall inspection of chest normal and palpation of chest normal Chest: Negative for tenderness Resp normal respiratory effort and clear to auscultation bilaterally Effort and Inspection: Negative for respiratory distress or pain with movement Auscultation: Negative for rhonchi, wheezes or diminished lung sounds Cardio regular rate, regular rhythm, S1 normal heart sound, S2 normal heart sound and no murmurs Peripheral Pulses: pulses 2+ throughout GI normal to inspection, nondistended, normoactive bowel sounds, soft to palpation, non-tender, non-distended and no masses Back/Spine no CVA tenderness and no thoracic nor lumbar tenderness Extremity Extremity Narrative: Left ring finger-patient does have tenderness to palpation over the base of the proximal phalanx with ecchymosis and bruising noted. She has limited ability to flex the digit secondary to pain. No obvious deformity. She is neurovascular intact. General Extremety ED: Negative for edema General Extremity: Negative for edema Neuro oriented x3, CN's II-XII intact bilaterally, no sensory deficits noted and gait normal Sensorium / Orientation: awake, alert, oriented to person, oriented to place and oriented to time Motor Exam: strength 5/5 throughout and strength abnormal Psych mental status grossly normal Skin no rashes or lesions noted and no wounds MDM MDM MDM Narrative Medical decision making narrative: Patient will be placed in aluminum splint. Patient to follow-up with the primary care physician in 5 to 7 days. Patient to use ibuprofen or Tylenol for discomfort. Radiography Diagnostic Testing: Three-view x-rays of left ring finger obtained interpreted by myself as no acute fractures or dislocations. Official report from radiology pending. Discharge Plan Triage Chief Complaint: Upper Extremity Injury ED Provider: Camryn Rahman Dx/Rx/DC Orders Clinical Impression: Other sprain of left ring finger, initial encounter Instructions: ED Finger Sprain Prescriptions: No Action lamotrigine [Lamictal] 200 mg Tablet 200 mg PO BID RF: 0 Primary Care Provider: Care Physician,No Primary Referrals: Dona Barrois MD [STAFF PHYSICIAN] - 5-7 Days Care Physician,No Primary [Primary Care Provider] - Disposition Disposition: Home, Self Care
--- NOTE | 2021-12-06 20:55 | RAD_ITS ---
STUDY: X-RAY - LEFT HAND, ATTENTION 4th FINGER REASON FOR EXAM: Female, 31 years old. left ring finger pain after having a seizure this wednesday. TECHNIQUE: 3 view(s) of the finger were obtained. COMPARISON: None. FINDINGS: Normal metacarpal head. Normal metacarpophalangeal joint. Normal proximal phalanx. There is cortical irregularity and subcortical lucency involving the palmar base of the fourth middle phalanx. Normal distal phalanx. Normal proximal interphalangeal joint. Normal distal interphalangeal joint. Soft tissue swelling of the fourth digit. RAD/Finger(s) Min 2 Views IMPRESSION: Fourth digit soft tissue swelling. Possible hyperextension avulsion fracture at the base of the fourth middle phalanx. Electronically Signed: Austin Kellogg MD ([place]) at 21:09 EDT ,
[2021-12-06 21:12] VITALS: RESP 16
== END 2021-12-06 21:13 | disposition home or self-care (01) ==
PROVIDERS: Emergency Provider Emergency Medicine; Visit Provider Emergency Medicine
DX: S63.615A Unspecified sprain of left ring finger, initial encounter (principal); F17.210 Nicotine dependence, cigarettes, uncomplicated; X58.XXXA Exposure to other specified factors, initial encounter
CPT/HCPCS: 73140; 99283

== ENCOUNTER 2022-01-05 23:38 | Emergency (ER) | payer MEDICAID, SELFPAY ==
[2022-01-05 23:40] VITALS: BP 151/87; PULSE 116; RESP 18; TEMP 36.6; O2SAT 94; BMI 33.1
--- NOTE | 2022-01-05 23:55 | RAD_ITS ---
EXAM: XR RIGHT ANKLE COMPLETE, 3 OR MORE VIEWS CLINICAL INDICATION: trauma -- Shield abdomen. Patient TECHNIQUE: Frontal, lateral and oblique views of the right ankle. This report was created using [employer] report generation technology. COMPARISON: 04/03/2021 FINDINGS: BONES/JOINTS: Old fracture of the medial malleolus with incomplete healing. Old, healed posterior malleolus fracture of the distal tibia. Preservation of the joint space. No sclerotic or destructive changes observed. SOFT TISSUES: Unremarkable. No soft tissue swelling or gas. No radiopaque foreign body. RAD/Ankle min 3 Views IMPRESSION: 1. No acute injuries identified involving the right ankle. 2. Old fracture of the medial malleolus with incomplete healing/nonunion. Electronically Signed: Uriah Medina MD at 0:47 EDT ,
--- NOTE | 2022-01-05 23:55 | RAD_ITS ---
EXAM: XR LEFT KNEE, 3 VIEWS CLINICAL INDICATION: trauma -- Shield abdomen. Patient . TECHNIQUE: Three views of the left knee. This report was created using [employer] report generation technology. COMPARISON: None. FINDINGS: BONES/JOINTS: Unremarkable. No acute fracture. No subluxation. Normal alignment. Preservation of the joint space. No sclerotic or destructive changes observed. SOFT TISSUES: Unremarkable. No soft tissue swelling or gas. No radiopaque foreign body. RAD/Knee 3 Views IMPRESSION: Negative left knee x-rays. Electronically Signed: Uriah Medina MD at 0:48 EDT ,
--- NOTE | 2022-01-05 23:57 | ED.VIS.LOWEX ---
HPI History of Present Illness Chief Complaint: Lower Extremity Injury Informant: patient Narrative Narrative: Patient comes in complaining of right ankle and left knee pain. Patient evidently had a seizure this morning. It was a typical seizure for her. She is seeing her neurologist. She had a Lamictal level that was slightly low in October. About 2 weeks ago they increased her dose from 200-225 twice a day. She states twice she has had seizures within an hour after taking her meds. Once is occurred in the morning once in the evening. She has been in contact with her neurologist and they are doing follow-up for this. She has been fine since this morning other than the joint pain. She states she is not sure what she did but she has a history of injuries and even fractures during seizures. Walking or pressing on the area makes them hurt and rest makes them better. Ankle is sore in the medial aspect and knee is sore right on the anterior/patellar region. [facility] Medical History (Updated 01/06/22 @ 00:[address] Mati Prieto MD) Chlamydia Depression History of drug abuse History of substance abuse Light tobacco smoker <10 cigarettes per day Seizure disorder Home Medications lamotrigine [Lamictal] 200 mg PO BID 06/04/21 [History Last Taken 12/06/21] Allergy/AdvReac Type Severity Reaction Status Date / Time lactose AdvReac Upset Verified 01/05/22 23:40 Stomach tomato AdvReac Vomiting Verified 01/05/22 23:40 Family History Other Alcohol abuse Arthritis Depression Seizures Social History Smoking Status: Current every day smoker tobacco type: cigarettes alcohol intake: current alcohol intake frequency: a few times a week details: Hx of alcohol abuse substance use type: does not use, former substance user Date of last use: 2010 , opiates, painkillers and methamphetamine what type of physical activity do you participate in: walking frequency: daily ROS ROS ED Constitutional Constitutional ED: Denies chills, fever(s) or subjective Eyes Eyes: Denies blurry vision ENT ENT ED: Denies rhinorrhea or sore throat Cardiovascular Cardiovascular: Denies chest pain Respiratory/Chest Respiratory/Chest: Denies cough or sputum Gastrointestinal Gastrointestinal: Denies nausea or vomiting Genitourinary Genitourinary ED: Reports other Details: Patient is currently 15 weeks . She states she has not been having problems with this. She is not having nausea vomiting. She has no complaints related to the . ; Denies dysuria or hematuria Musculoskeletal Musculoskeletal: Reports other Details: See history of present illness. Integumentary Denies rash Neurologic Neurologic: Denies headache(s) Endocrine Endocrinology: Denies polydipsia or polyuria Hematologic/Lymphatic Hematologic/Lymphatic: Denies easy bleeding or easy bruising Allergic/Immunologic Allergic/Immunologic ED: Denies urticaria EXAM Physical Exam Const Vital Signs: 01/05/22 23:40 Temperature 98 F Temperature Source Temporal Pulse Rate 116 H Respiratory Rate 18 Blood Pressure 151/87 H Blood Pressure Mean 108 Pulse Ox 94 Oxygen Delivery Method Room Air Positive well nourished and well developed General Appearance ED: well developed and NAD HEENT Reports moist mucous membranes normocephalic and atraumatic Resp normal respiratory effort and clear to auscultation bilaterally Cardio regular rate and regular rhythm GI non-tender Palpation: soft Back/Spine no CVA tenderness Extremity Extremity Narrative: Left ankle does show slight swelling on the medial aspect. There is tenderness at the tip of the medial malleolus. There is slight tenderness posteriorly. Achilles is intact by palpation and Helton test. No tenderness to the fifth metatarsal or calcaneus. Ankle is stable to inversion eversion and drawer. Left knee shows no effusion or abrasion/contusion. However she has tenderness right on the patella. No medial joint line tenderness. No pain in the back of the knee. Neuro oriented x3 Sensorium / Orientation: alert Psych mental status grossly normal Skin Lesions: no lesions Rashes: no rashes MDM MDM MDM Narrative Medical decision making narrative: Three-view x-ray of the left knee looked at by me read by radiology as negative. Three-view x-ray of the right ankle shows an old fracture through the medial malleolus with incomplete healing. I did bring up to old films that show this. It looks improved. Patient will follow up with her neurologist. I will add a Aircast just to provide some mild support for the ankle. She should use ice rest and Tylenol if needed for pain. She should avoid nonsteroidals. Radiography Diagnostic Testing: Clinical Impression(s) from Imaging Studies Ankle X-Ray 01/05/22 23:55 IMPRESSION: 1. No acute injuries identified involving the right ankle. 2. Old fracture of the medial malleolus with incomplete healing/nonunion. Electronically Signed: Uriah Medina MD at 0:47 EDT , Knee X-Ray 01/05/22 23:55 IMPRESSION: Negative left knee x-rays. Electronically Signed: Uriah Medina MD at 0:48 EDT , Discharge Plan Triage Chief Complaint: Lower Extremity Injury ED Provider: Mati Prieto Dx/Rx/DC Orders Clinical Impression: Breakthrough seizure, Contusion of left knee, Right ankle injury Instructions: ED Contusion, Lower Extremity, ED Seizure, Recurrent (Adult) Prescriptions: No Action lamotrigine [Lamictal] 200 mg Tablet 200 mg PO BID RF: 0 Primary Care Provider: Care Physician,No Primary Referrals: Wayne Drew MD [STAFF PHYSICIAN] - 1 Week if not improving Care Physician,No Primary [Primary Care Provider] - Disposition Disposition: Home, Self Care
[2022-01-06 00:59] VITALS: BP 144/88; PULSE 100; RESP 17; O2SAT 98
== END 2022-01-06 01:00 | disposition home or self-care (01) ==
PROVIDERS: Emergency Provider Emergency Medicine; Visit Provider Emergency Medicine
DX: R56.9 Unspecified convulsions (principal); S80.02XA Contusion of left knee, initial encounter; S99.911A Unspecified injury of right ankle, initial encounter; F17.210 Nicotine dependence, cigarettes, uncomplicated; Z79.899 Other long term (current) drug therapy; X58.XXXA Exposure to other specified factors, initial encounter
CPT/HCPCS: 73562; 73610; 99283

== ENCOUNTER 2022-01-14 15:15 | Emergency (ER) | payer MEDICAID, SELFPAY ==
[2022-01-14 15:18] VITALS: BP 124/77; PULSE 123; RESP 17; TEMP 36.9; O2SAT 96; BMI 31.9
--- NOTE | 2022-01-14 15:27 | EX.ED.DYSGE1 ---
HPI History of Present Illness Chief Complaint: Seizure Informant: patient and EMS Narrative Narrative: 31-year-old female 16 weeks with a history of epilepsy states that she had a seizure while at work today. 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 States that she does not feel injured from the seizure. She denies any headache. She was prophylactically placed in a c-collar by EMS. She denies missing any doses of her seizure medication. [facility] Medical History (Updated 01/14/22 @ 15:[address] Maurisio Richards DO) Chlamydia Depression History of drug abuse History of substance abuse Light tobacco smoker <10 cigarettes per day Seizure disorder Home Medications lamotrigine 200 mg tablet (Lamictal) 225 mg PO BID 06/04/21 [History Last Taken 12/06/21] Allergy/AdvReac Type Severity Reaction Status Date / Time lactose AdvReac Upset Verified 01/14/22 15:16 Stomach tomato AdvReac Vomiting Verified 01/14/22 15:16 Family History Other Alcohol abuse Arthritis Depression Seizures Social History Smoking Status: Current every day smoker tobacco type: cigarettes alcohol intake: current alcohol intake frequency: a few times a week details: Hx of alcohol abuse substance use type: does not use, former substance user Date of last use: 2010 , opiates, painkillers and methamphetamine what type of physical activity do you participate in: walking frequency: daily ROS ROS ED Constitutional Constitutional ED: Denies chills or weight loss Eyes Eyes: Denies change in vision or diplopia ENT ENT ED: Denies ear pain, rhinorrhea or sore throat Cardiovascular Cardiovascular: Denies chest pain, orthopnea, palpitations or racing heartbeat Respiratory/Chest Respiratory/Chest: Denies cough, dyspnea or orthopnea Gastrointestinal Gastrointestinal: Denies abdominal pain, diarrhea, nausea or vomiting Genitourinary Genitourinary ED: Denies dysuria, hematuria or urinary frequency Musculoskeletal Musculoskeletal: Denies arthralgias or myalgias Integumentary Denies abscess or rash Neurologic Neurologic: Reports other Details: Seizure ; Denies headache(s) or weakness Psychiatric Psychiatric: Denies anxiety, depression, suicidal ideation or suicidal thoughts Endocrine Endocrinology: Denies polydipsia, polyphagia or polyuria Allergic/Immunologic Allergic/Immunologic ED: Denies mouth swelling, tongue swelling or urticaria EXAM Physical Exam Const Vital Signs: 01/14/22 15:18 Temperature 98.4 F Temperature Source Oral Pulse Rate 123 H Respiratory Rate 17 Blood Pressure 124/77 H Blood Pressure Mean 92 Pulse Ox 96 Oxygen Delivery Method Room Air Positive well nourished and well developed General Appearance ED: well developed HEENT Reports normocephalic, head/scalp atraumatic and moist mucous membranes Eyes PERRL and EOMs intact bilaterally Neck no lymphadenopathy, supple and no JVD Resp normal respiratory effort and clear to auscultation bilaterally Cardio regular rate, regular rhythm and no murmurs GI normal to inspection, nondistended, normoactive bowel sounds and non-tender Palpation: soft Back/Spine no CVA tenderness and normal ROM Extremity normal to inspection General Extremety ED: Negative for edema General Extremity: Negative for edema Neuro oriented x3 and CN's II-XII intact bilaterally Sensorium / Orientation: alert Motor Exam: strength 5/5 throughout Psych mental status grossly normal Mood & Affect: Negative for depressed or tearful Skin no rashes or lesions noted and no wounds MDM MDM MDM Narrative Medical decision making narrative: As the patient had a seizure and is extremely hot outside and she has been drinking a lot of fluids electrolytes were checked and her sodium is normal at 137 potassium is 4. Bedside ultrasound done by this physician shows a single live intrauterine . heart rate is 153 with excellent movement. Patient will be discharged. Return if worsening or concerns Lab Data Attestation: I reviewed the patient's lab results. Labs: Laboratory Results - last 24 hr 01/14/22 15:50 Sodium 137 Potassium 4.0 Chloride 110 H Carbon Dioxide 21.0 Anion Gap 6 BUN 8 Creatinine 0.66 Estim Creat Clear Calc 124.59 Est GFR (MDRD) Af Amer 134 Est GFR (MDRD) Non-Af 111 BUN/Creatinine Ratio 12.2 Glucose 81 Calcium 8.6 Discharge Plan Triage Chief Complaint: Seizure ED Provider: Maurisio Richards Dx/Rx/DC Orders Clinical Impression: Breakthrough seizure, Seizure disorder, Second trimester Instructions: ED Seizure, Recurrent (Adult) Prescriptions: No Action lamotrigine [Lamictal] 200 mg Tablet 225 mg PO BID Primary Care Provider: Care Physician,No Primary Referrals: Care Physician,No Primary [Primary Care Provider] - Disposition Disposition: Home, Self Care
[2022-01-14 16:11] LABS: BUN 8 mg/dL (7-18); BUN/Creat Ratio 12.2 RATIO (10-20); Calcium,Total 8.6 mg/dL (8.5-10.1); Chloride 110 mmol/L (98-107); Creatinine, Serum 0.66 mg/dL (0.55-1.02); EST Glomerular Filtration Rate 111 mL/min (>60); Est Glom Filt Rate - Afr Amer 134 mL/min (>60); Estimated Creatinine Clearance 124.59 ml/min; Glucose 81 mg/dL (74-106); Sodium Level 137 mmol/L (136-145)
[2022-01-14 16:12] LABS: Anion Gap 6 (5-15)
[2022-01-14 16:40] VITALS: PULSE 118; RESP 17; O2SAT 98
== END 2022-01-14 16:41 | disposition home or self-care (01) ==
PROVIDERS: Emergency Provider Emergency Medicine; Visit Provider Emergency Medicine
DX: O99.352 Diseases of the nervous system complicating pregnancy, second trimester (principal); G40.909 Epilepsy, unspecified, not intractable, without status epilepticus; O99.332 Smoking (tobacco) complicating pregnancy, second trimester; F17.210 Nicotine dependence, cigarettes, uncomplicated; Z79.899 Other long term (current) drug therapy; Z3A.16 16 weeks gestation of pregnancy
CPT/HCPCS: 80048; 99284; A4216

== ENCOUNTER 2022-02-24 14:45 | Outpatient (CLI) | payer MEDICAID, SELFPAY ==
--- NOTE | 2022-02-24 14:38 | ED.RN ---
not triaged. pt leaking amniotic fluid sent to ob
[2022-02-24 15:02] VITALS: BP 121/57; PULSE 100; TEMP 37.1; O2SAT 99
[2022-02-24 15:42] LABS: ROM Internal Control Test YES-OK TO RESULT pt. (Internal QC); ROM Patient Test Negative (Negative)
[2022-02-24] MEDS: Ondansetron 4 MG/2 ML Vial IM (15:47)
[2022-02-24] MEDS: Lactated Ringers 1,000 ML 999 ML IV (15:48)
[2022-02-24 15:56] LABS: Mucous, Urine 0 SEEN /hpf (<or=2+); Red Blood Cells-Urine 0 SEEN /hpf (0-5)
[2022-02-24 15:59] LABS: Color, Urine Yellow (Yellow); Glucose, Dipstick Normal (Normal); Ketone-Dipstick Negative (Negative); Leukocyte Esterase-Dipstick 25 /ul (Negative); Nitrite-Dipstick Negative (Negative); Occult Blood-Urine Negative /ul (Negative); Protein-Dipstick Negative (Negative); Specific Gravity, Urine 1.015 (1.002-1.030); Urine Bilirubin Dipstick Negative (Negative); Urine Clarity Sl. Cloudy (Clear); Urine Urobilinogen Normal (Normal); Urine pH 6.5 (5.0 - 8.0)
[2022-02-24 16:38] LABS: White Blood Cells 0-5 SEEN /hpf (0-5)
[2022-02-24 16:39] LABS: Bacteria 4+ /hpf (None Seen); Squamous Epithelial Cells - UA 10-25 SEEN /hpf (5-10)
--- NOTE | 2022-02-24 17:34 | HP.PCM.OB_ITS ---
History and Physical Date of Admission: 02/24/22 31-year-old G5, P4 at 22/5 weeks presenting with nausea, vomiting, vaginal discharge. Patient states she had a breakfast burrito and mac & cheese for breakfast and then had vomiting since that time. She has vomited 3 times and had diarrhea x1. Not currently vomiting. Feeling slightly improved. States she tried Phenergan at home which did not help. Denies fevers or chills, chest pain or shortness of breath. States that no one is sick at home. Did not eat anything different. Aside from that breakfast today. Reports some lower abdominal cramping, which is intermittent. No vaginal bleeding. Reports increase in vaginal discharge over the past week. States that it starts a c ouple hours after she gets up in the morning and get stress from work. Then continues all throughout the day. Reports movement. [employer] history: G5, P4. All vaginal deliveries, term. Last was twins delivered around 35 weeks. Medical history: Seizure disorder. Last seizure on this past weekend. Had appointment with neurologist via telehealth today. Is taking Lamictal. Does not routinely have seizures. Surgical history: Denies Allergies: Tomatoes Medications: Lamictal, folic acid, Phenergan as needed Review of system negative otherwise stated above Physical exam: BP 121/57, pulse 100, temp 98.7 ?F, O2 saturation 99% on room air General: Resting in bed in no acute distress, not vomiting HEENT: Normocephalic/atraumatic Cardiorespiratory: No increased effort Abdomen: Gravid, obese, nontender Extremities: Minimal edema Sterile speculum exam: Cervix long and thick, scant white vaginal discharge in vault. No pooling of fluid or expulsion of fluid with cough or Valsalva Ferning negative, positive clue cells heart rate: 140s [place]: Quiet Bedside ultrasound: Anterior placenta, fetus transverse. BOGDAN 9 Assessment & Plan Assessment/Plan (1) Gastroenteritis: PLAN: 31-year-old at 22/5 weeks presenting with viral gastroenteritis and bacterial vaginosis. Tolerating p.o. after IV fluid hydration and Zofran. Will discharge with Zofran, supportive care with brat diet and p.o. hydration. Bacterial vaginosis. Will treat with MetroGel. No evidence of rupture membranes: ROM negative, BOGDAN within normal limits, ferning negative. Discharge secondary to bacterial vaginosis. this also may cause some cramping along with gastroenteritis. Discharge home with supportive care and medications. Patient has scheduled to follow-up March 12. Follow-up at that time or sooner if needed. Precautions discussed. (2) Bacterial vaginosis in :
== END 2022-02-24 17:40 | disposition home or self-care (01) ==
LOC: WPOUT 14:47 → WP 14:48
PROVIDERS: Visit Provider Student in an Organized Health Care Education/Training Program
DX: O99.612 Diseases of the digestive system complicating pregnancy, second trimester (principal); O23.592 Infection of other part of genital tract in pregnancy, second trimester; K52.9 Noninfective gastroenteritis and colitis, unspecified; N76.0 Acute vaginitis; Z3A.22 22 weeks gestation of pregnancy
CPT/HCPCS: 96365; 96366; 96375; 59050; 81001; 84112; 87086; 87088; 99218; J7120; G0378; J2405

== ENCOUNTER → 2022-03-12 | Outpatient (CLI) | payer MEDICAID, SELFPAY ==
[2022-03-12 12:00] LABS: Glucose Challenge Gest 1H 50g 131 mg/dL (70-140)
[2022-03-12 12:02] LABS: Absolute Lymphocyte Count 2.56 X10^3/uL (0.83-4.51); Basophil# 0.04 X10^3/uL; Basophil% 0.4 % (0-1); Eosinophil# 0.25 X10^3/uL; Eosinophils% 2.4 % (0-5); Hematocrit 33.7 % (37-47); Hemoglobin 11.5 g/dL (12.0-15.0); Lymphocyte # 2.56 X10^3/ul (0.83-4.51); Lymphocyte % 24.2 % (19-41); Mean Corp Hgb Conc 34.1 g/dL (32-36); Mean Corpuscular Hgb 32.1 pg (27.0-32.0); Mean Corpuscular Volume 94.1 fL (81-99); Mean Platelet Vol. 9.7 fl (6.2-12.0); Monocyte# 0.71 X10^3/uL; Monocyte% 6.7 % (0-10); NRBC Flagged by Analyzer 0 % (0-5); Neutrophil # 6.95 X10^3/uL (2.7-7.7); Neutrophil % 65.7 % (47-70); Platelet Count 334 K/mm3 (150-450); RBC Distribution Width CV 12.3 % (11.6-14.6); RBC Distribution Width SD 42.5 fl (35.1-43.9); Red Blood Count 3.58 M/mm3 (4.2-5.4); White Blood Count 10.6 K/mm3 (4.4-11.0)
== END | disposition home or self-care (01) ==
PROVIDERS: Visit Provider Obstetrics & Gynecology
DX: Z34.82 Encounter for supervision of other normal pregnancy, second trimester (principal)
CPT/HCPCS: 36415; 82950; 85025

== ENCOUNTER → 2022-03-20 | Outpatient (CLI) | payer MEDICAID, SELFPAY ==
[2022-03-25 15:23] LABS: Lamotrigine (Lamictal) Level 3.8 ug/mL (2.0-20.0)
== END | disposition home or self-care (01) ==
DX: R56.9 Unspecified convulsions (principal)
CPT/HCPCS: 36415; 82542

== ENCOUNTER → 2022-04-09 | Outpatient (CLI) | payer MEDICAID, SELFPAY ==
[2022-04-14 14:54] LABS: Lamotrigine (Lamictal) Level 4.1 ug/mL (2.0-20.0)
== END | disposition home or self-care (01) ==
PROVIDERS: Visit Provider Obstetrics & Gynecology
DX: G40.909 Epilepsy, unspecified, not intractable, without status epilepticus (principal)
CPT/HCPCS: 36415; 82542

== ENCOUNTER → 2022-04-30 | Outpatient (CLI) | payer MEDICAID, SELFPAY ==
[2022-05-04 16:49] LABS: Lamotrigine (Lamictal) Level 2.8 ug/mL (2.0-20.0)
== END | disposition home or self-care (01) ==
LOC: WOBLAB 16:05
PROVIDERS: Visit Provider Obstetrics & Gynecology
DX: G40.909 Epilepsy, unspecified, not intractable, without status epilepticus (principal)
CPT/HCPCS: 36415; 82542

== ENCOUNTER 2022-05-11 13:40 | Outpatient (CLI) | payer MEDICAID, SELFPAY ==
[2022-05-11 14:48] VITALS: BMI 33.8
--- NOTE | 2022-05-11 17:29 | PN_ITS ---
Progress Note 31-year-old at 33/1 weeks presenting with decreased movement. Patient had not felt movement since midnight last night. Reported some ab dominal pain, upper, nonsevere, no contractions or bleeding or leaking. Cervical exam per RN closed thick and high NST reactive: 140/mod arnold/+accel/no decel [place] quiet. Discharge home with labor precautions, kick counts. Patient has appointment on Wednesday in office. Did have some movements while in triage. status reassuring during monitoring.
== END 2022-05-11 15:22 | disposition home or self-care (01) ==
LOC: WPOUT 13:48 → WP 13:48
PROVIDERS: Visit Provider Student in an Organized Health Care Education/Training Program
DX: O36.8130 Decreased fetal movements, third trimester, not applicable or unspecified (principal); Z3A.33 33 weeks gestation of pregnancy
CPT/HCPCS: 59025; 59050; 76815

== ENCOUNTER → 2022-05-12 | Outpatient (CLI) | payer MEDICAID, SELFPAY ==
--- NOTE | 2022-05-12 14:24 | US_ITS ---
STUDY: OBSTETRICAL ULTRASOUND - BIOPHYSICAL PROFILE REASON FOR EXAM: Female, 31 years old. movement. LMP: 09/18/2021 PRIOR ULTRASOUND: 10/12/2021 TECHNIQUE: Transabdominal TECHNICAL QUALITY: Adequate. FINDINGS: There is a single intrauterine fetus. The fetus is in a cephalic presentation. There is demonstrated cardiac activity with a heart rate of 147 bpm. There is a normal amniotic fluid volume. The largest amniotic fluid pocket measures 4.1 cm. The amniotic fluid index (BOGDAN) is 10.49 cm. The placenta is anterior in location and is not low lying. There are Grade 1 placental changes. Age by LMP: 33 weeks, 5 days. QUYEN by LMP: 06/25/2022. BIOPHYSICAL PROFILE: Breathing Movements (FBM): 2 Gross Body Movements (GBM): 2 Tone (FT): 2 Amniotic Fluid Volume (AFV): 2 TOTAL SCORE: 8 / 8 US/Biophysical Prof W/O Non Stres IMPRESSION: Normal biophysical profile of 8/8. Electronically Signed: Noah Burnette DO at 16:03 EDT ,
== END | disposition home or self-care (01) ==
LOC: US 14:23
PROVIDERS: Referring Provider Student in an Organized Health Care Education/Training Program; Visit Provider Student in an Organized Health Care Education/Training Program
DX: O36.8190 Decreased fetal movements, unspecified trimester, not applicable or unspecified (principal)
CPT/HCPCS: 76819

== ENCOUNTER 2022-05-14 23:33 | Outpatient (CLI) | payer MEDICAID, SELFPAY ==
[2022-05-14 23:51] VITALS: BP 134/68; PULSE 96; TEMP 36.6
--- NOTE | 2022-05-14 23:59 | OB.TRI.NOTE ---
HPI - General General Date of Admission: 05/14/22 HPI Narrative DELON HAJI, is a 31 F who presents leakage of fluid PFSH PFSH Medical History (Updated 02/24/22 @ 17:[address] Ani West DO) Chlamydia Depression History of drug abuse History of substance abuse Light tobacco smoker <10 cigarettes per day Seizure disorder Home Medications lamotrigine 200 mg tablet (Lamictal) 225 mg PO BID 06/04/21 [History Last Taken 05/14/22 08:00] metronidazole 0.75 % topical gel 1 applic topical QHS 7 days #45 grams 02/24/22 [Rx Last Taken Unknown] ondansetron 4 mg disintegrating tablet 4 mg PO Q6H PRN nausea and vomiting 30 days #30 tabs 02/24/22 [Rx Last Taken Unknown] Allergy/AdvReac Type Severity Reaction Status Date / Time lactose AdvReac Upset Verified 05/15/22 00:13 Stomach tomato AdvReac Vomiting Verified 05/15/22 00:13 Family History Other Alcohol abuse Arthritis Depression Seizures Social History Smoking Status: Current every day smoker tobacco type: cigarettes alcohol intake: current alcohol intake frequency: a few times a week details: Hx of alcohol abuse substance use type: does not use, former substance user Date of last use: 2010 , opiates, painkillers and methamphetamine what type of physical activity do you participate in: walking frequency: daily History Elective abortions Hx Para 3 Spontaneous abortions Hx # Term Pregnancies Ectopic pregnancies Hx # Pregnancies Multiple births # of living children NST FHR Rate Baby A Baseline: 130 Variability:: Moderate Accelerations:: 15 x 15 Decelerations:: None NST Reactive:: Yes Uterine Activity:: quiet Assessment & Plan (1) : PLAN: Patient arrived with leakage of fluid. ROM negative. All reassuring. Okay to discharge home
[2022-05-15 00:12] VITALS: BMI 33.7
[2022-05-15 00:33] LABS: ROM Internal Control Test YES-OK TO RESULT pt. (Internal QC); ROM Patient Test Negative (Negative)
== END 2022-05-15 00:42 | disposition home or self-care (01) ==
LOC: WPOUT 23:41 → WP 23:41
PROVIDERS: Visit Provider Obstetrics & Gynecology
DX: O47.9 False labor, unspecified (principal); O99.330 Smoking (tobacco) complicating pregnancy, unspecified trimester; F17.210 Nicotine dependence, cigarettes, uncomplicated; Z3A.00 Weeks of gestation of pregnancy not specified
CPT/HCPCS: 59025; 59050; 84112; 99218; G0378

== ENCOUNTER 2022-05-25 19:33 | Outpatient (CLI) | payer MEDICAID, SELFPAY ==
[2022-05-25 19:57] VITALS: BP 122/69; PULSE 94; O2SAT 98
[2022-05-25 19:58] VITALS: TEMP 36.6
[2022-05-25 20:00] VITALS: BMI 34.5
[2022-05-25 20:44] LABS: Color, Urine Yellow (Yellow); Glucose, Dipstick Normal (Normal); Ketone-Dipstick 5 mg/dl (Negative); Leukocyte Esterase-Dipstick 100 /ul (Negative); Nitrite-Dipstick Negative (Negative); Occult Blood-Urine Negative /ul (Negative); Protein-Dipstick 30 mg/dl (Negative); Specific Gravity, Urine 1.015 (1.002-1.030); Urine Bilirubin Dipstick Negative (Negative); Urine Clarity Cloudy (Clear); Urine Urobilinogen 1 mg/dl (Normal)
--- NOTE | 2022-05-26 05:46 | PN.OBGYN_ITS ---
Subjective Subjective 31-year-old G5 P for living 5 at 35 and 4, presenting with back pain. Patient states it occurred about every 45 minutes, one-sided. Then resolved. Worsened with movement. Feeling some mild cramping occasionally, but no regular contractions. Denies leaking of fluid, vaginal bleeding. Reports movement. Objective Data Objective Data Vital Signs: Vital Signs Temp Pulse BP Pulse Ox 97.8 F 94 122/69 H 98 05/25/22 19:58 05/25/22 19:57 05/25/22 19:57 05/25/22 19:57 Weight: 103.056 kg Body Mass Index (BMI) 34.5 Lab / Micro Data Labs: Laboratory Results - last 24 hr 05/25/22 20:30: Urine Color Yellow, Urine Clarity Cloudy, Urine pH 7.0, Ur Specific [place] 1.015, Urine Protein 30 H, Urine Glucose (UA) Normal, Urine Ketones 5 H, Urine Occult Blood Negative, Urine Nitrite Negative, Urine Bilirubin Negative, Urine Urobilinogen 1 H, Ur Leukocyte Esterase 100 H Physical Exam Narrative: Cervical exam 2 cm per RN which is unchanged from office check on 05/14 NST FHR Rate Baby A Baseline: 130 Variability:: Moderate Accelerations:: 15 x 15 Decelerations:: None NST Reactive:: Yes Assessment & Plan (1) Musculoskeletal pain: PLAN: Pain likely musculoskeletal as it appeared to worsen with movement, witnessed by RN when patient got up to use restroom. No evidence of urinary tract infection. Unlikely to be nephrolithiasis based on presentation. Patient not in labor as cervix was unchanged. Discharge home with supportive care. Tylenol as needed, can use short interval heat to back, warm bath, IcyHot. status reassuring. Labor precautions reviewed. Patient to follow-up at routine visit this week in office. (2) :
== END 2022-05-25 21:00 | disposition home or self-care (01) ==
LOC: WPOUT 19:35 → WP 19:36
PROVIDERS: Visit Provider Student in an Organized Health Care Education/Training Program
DX: O99.891 Other specified diseases and conditions complicating pregnancy (principal); M54.9 Dorsalgia, unspecified; Z3A.00 Weeks of gestation of pregnancy not specified
CPT/HCPCS: 59025; 59050; 81002; 99218; G0378

== ENCOUNTER 2022-05-27 20:23 | Outpatient (CLI) | payer MEDICAID, SELFPAY ==
[2022-05-27] VITALS (10 sets, daily range): BP systolic 115–117; BP diastolic 62–78; PULSE 78–115; RESP 15; TEMP 36.2–36.7; O2SAT 96–100; BMI 33.5; BMI 34.3
--- NOTE | 2022-05-27 19:58 | EX.ED.DYSGE1 ---
HPI History of Present Illness Chief Complaint: Seizure Narrative Narrative: 31-year-old G5 P for living 5 at 35 weeks 4 days presenting with a breakthrough seizure. She has a history of epilepsy. She is on medication for this. She states has not missed any doses. She takes Lamictal. She saw obstetrics this morning and was diagnosed with musculoskeletal pain which was unilateral. Patient to take Tylenol on discharge. Her significant other states that she was at the [place] and started to stare like she was waiting for somebody to pass. He tried to come around the car to catch her because he thought she was going to fall. By the time he got there she was on the ground having a seizure. He states it was about a minute and a half. She was postictal about 15 minutes afterwards. The patient herself does not have any pain or bruising on her abdomen on the right where she fell. She states she can still feel her baby kicking. No vaginal discharge or loss of blood or fluid. She states she feels at her baseline. [facility] Medical History Chlamydia Depression History of drug abuse History of substance abuse Light tobacco smoker <10 cigarettes per day Seizure disorder Home Medications lamotrigine 200 mg tablet (Lamictal) 225 mg PO BID 06/04/21 [History Last Taken 05/25/22 18:00] metronidazole 0.75 % topical gel 1 applic topical QHS 7 days #45 grams 02/24/22 [Rx Last Taken Unknown] ondansetron 4 mg disintegrating tablet 4 mg PO Q6H PRN nausea and vomiting 30 days #30 tabs 02/24/22 [Rx Last Taken Unknown] folic acid 1 mg tablet 1 mg PO DAILY 05/25/22 [History Last Taken 05/25/22 11:00] Allergy/AdvReac Type Severity Reaction Status Date / Time lactose AdvReac Upset Verified 05/27/22 19:04 Stomach tomato AdvReac Vomiting Verified 05/27/22 19:04 Family History Other Alcohol abuse Arthritis Depression Seizures Social History Smoking Status: Current every day smoker tobacco type: cigarettes alcohol intake: current alcohol intake frequency: a few times a week details: Hx of alcohol abuse substance use type: does not use, former substance user Date of last use: 2010 , opiates, painkillers and methamphetamine what type of physical activity do you participate in: walking frequency: daily ROS ROS ED Constitutional Constitutional ED: Denies chills or fever(s) Eyes Eyes: Denies change in vision or diplopia ENT ENT ED: Denies rhinorrhea or sore throat Cardiovascular Cardiovascular: Denies chest pain or palpitations Respiratory/Chest Respiratory/Chest: Denies cough or dyspnea Gastrointestinal Gastrointestinal: Denies abdominal pain or constipation Genitourinary Genitourinary ED: Denies dysuria or hematuria Musculoskeletal Musculoskeletal: Denies myalgias Integumentary Denies abscess Neurologic Neurologic: Denies headache(s) or paresthesias Psychiatric Psychiatric: Denies anxiety or depression EXAM Physical Exam Const Vital Signs: 05/27/22 19:00 Temperature 97.2 F L Temperature Source Temporal Pulse Rate 115 H Respiratory Rate 15 Blood Pressure 115/78 Blood Pressure Mean 90 Pulse Ox 100 Oxygen Delivery Method Room Air Positive well nourished General Appearance ED: NAD; Negative for pallor Eyes PERRL and EOMs intact bilaterally Neck no lymphadenopathy Chest Wall inspection of chest normal and palpation of chest normal Resp normal respiratory effort and clear to auscultation bilaterally Cardio regular rate and regular rhythm GI normal to inspection, nondistended, normoactive bowel sounds Neuro oriented x3 and CN's II-XII intact bilaterally Sensorium / Orientation: alert Motor Exam: strength 5/5 throughout Psych mental status grossly normal Skin no rashes or lesions noted and no wounds General Skin Exam: Negative for jaundice or pallor MDM MDM MDM Narrative Medical decision making narrative: 31-year-old female with epilepsy had a breakthrough seizure. Does not appear to be preeclampsia eclampsia her blood pressure and vital signs are normal. She is at her baseline and states she feels well. She does not have any abdominal pain and there is no evidence of trauma. She can feel the fetus kicking. No vaginal bleeding or loss of fluid. heart tones 136 and I spoke with Dr. Bebeto West who recommended sending her down to OB for monitoring for short while. Patient was counseled of this. She is amenable as well. She will be transported over there. Impression: 1. Breakthrough seizure 2. 35 weeks gestation Discharge Plan Triage Chief Complaint: Seizure ED Provider: Kyle Victor Dx/Rx/DC Orders Prescriptions: No Action lamotrigine [Lamictal] 200 mg Tablet 225 mg PO BID ondansetron 4 mg tablet,disintegrating 4 mg PO Q6H PRN (Reason: nausea and vomiting) 30 Days Qty: 30 3RF metronidazole 0.75 % gel 1 applic topical QHS 7 Days Qty: 45 0RF folic acid 1 mg tablet 1 mg PO DAILY Label Comments: TAKE 1 TABLET BY MOUTH DAILY Primary Care Provider: Care Physician,No Primary Referrals: Care Physician,No Primary [Primary Care Provider] -
--- NOTE | 2022-05-27 22:04 | OB.TRI.NOTE ---
HPI - General General Date of Admission: 05/27/22 HPI Narrative DELON HAJI, is a 31 F who presents after seizure [facility] Medical History Chlamydia Depression History of drug abuse History of substance abuse Light tobacco smoker <10 cigarettes per day Seizure disorder Home Medications lamotrigine 200 mg tablet (Lamictal) 225 mg PO BID 06/04/21 [History Last Taken 05/25/22 18:00] ondansetron 4 mg disintegrating tablet 4 mg PO Q6H PRN nausea and vomiting 30 days #30 tabs 02/24/22 [Rx Last Taken Unknown] folic acid 1 mg tablet 1 mg PO DAILY 05/25/22 [History Last Taken 05/25/22 11:00] promethazine 12.5 mg tablet 12.5 mg PO Q6H PRN Nausea And Vomiting 05/27/22 [History Last Taken 05/27/22 06:00] Allergy/AdvReac Type Severity Reaction Status Date / Time lactose AdvReac Upset Verified 05/27/22 19:04 Stomach tomato AdvReac Vomiting Verified 05/27/22 19:04 Family History Other Alcohol abuse Arthritis Depression Seizures Social History Smoking Status: Current every day smoker tobacco type: cigarettes alcohol intake: current alcohol intake frequency: a few times a week details: Hx of alcohol abuse substance use type: does not use, former substance user Date of last use: 2010 , opiates, painkillers and methamphetamine what type of physical activity do you participate in: walking frequency: daily History Elective abortions Hx Para 3 Spontaneous abortions Hx # Term Pregnancies Ectopic pregnancies Hx # Pregnancies Multiple births # of living children NST FHR Rate Baby A Baseline: 130 Variability:: Moderate Accelerations:: 15 x 15 Decelerations:: None NST Reactive:: Yes Uterine Activity:: Quiet Assessment & Plan (1) : PLAN: Patient arrives after seizure. Patient with history of seizures. Overall patient stable and NST reactive, reassuring. Okay to discharge home
== END 2022-05-27 21:37 | disposition home or self-care (01) ==
LOC: WPOUT 20:25 → WP 20:26
PROVIDERS: Referring Provider Obstetrics & Gynecology; Visit Provider Obstetrics & Gynecology
DX: O99.353 Diseases of the nervous system complicating pregnancy, third trimester (principal); R56.9 Unspecified convulsions; O99.333 Smoking (tobacco) complicating pregnancy, third trimester; Z3A.35 35 weeks gestation of pregnancy; O09.10 Supervision of pregnancy with history of ectopic pregnancy, unspecified trimester; F17.210 Nicotine dependence, cigarettes, uncomplicated
CPT/HCPCS: 59025; 59050; 99218; G0378

== ENCOUNTER → 2022-05-29 | Outpatient (CLI) | payer MEDICAID, SELFPAY | END | disposition home or self-care (01) | LOC: LABSPEC 10:55 | PROVIDERS: Visit Provider Obstetrics & Gynecology | DX: Z36.85 Encounter for antenatal screening for Streptococcus B (principal) | CPT/HCPCS: 87081 ==

== ENCOUNTER 2022-06-05 12:23 | Outpatient (CLI) | payer MEDICAID, SELFPAY ==
[2022-06-05 12:38] VITALS: TEMP 36.2; O2SAT 98
[2022-06-05 12:40] VITALS: BP 113/66; PULSE 88
[2022-06-05 12:42] VITALS: BMI 33.1
--- NOTE | 2022-06-06 07:18 | OB.TRI.NOTE ---
HPI - General General Date of Admission: 06/05/22 HPI Narrative DELON HAJI, is a 31 F [facility] Chlamydia Depression History of drug abuse History of substance abuse Seizure disorder Smoking addiction Home Medications lamotrigine 200 mg tablet (Lamictal) 225 mg PO BID 06/04/21 [History Last Taken 05/25/22 18:00] ondansetron 4 mg disintegrating tablet 4 mg PO Q6H PRN nausea and vomiting 30 days #30 tabs 02/24/22 [Rx Last Taken Unknown] folic acid 1 mg tablet 1 mg PO DAILY 05/25/22 [History Last Taken 05/25/22 11:00] Allergy/AdvReac Type Severity Reaction Status Date / Time lactose AdvReac Upset Verified 06/05/22 12:56 Stomach tomato AdvReac Vomiting Verified 06/05/22 12:56 Family History Other Alcohol abuse Arthritis Depression Seizures Social History Smoking Status: Current every day smoker tobacco type: cigarettes alcohol intake: current alcohol intake frequency: a few times a week details: Hx of alcohol abuse substance use type: does not use, former substance user Date of last use: 2010 , opiates, painkillers and methamphetamine what type of physical activity do you participate in: walking frequency: daily History Elective abortions Hx Para 3 Spontaneous abortions Hx # Term Pregnancies Ectopic pregnancies Hx # Pregnancies Multiple births # of living children NST FHR Rate Baby A Baseline: 120 Variability:: Moderate Accelerations:: 15 x 15 Decelerations:: None NST Reactive:: Yes Uterine Activity:: Quiet Assessment & Plan (1) : PLAN: Patient arrives for NST. Reactive NST. Reassuring. Okay to discharge home and follow-up at scheduled appointment
--- NOTE | 2022-06-06 07:20 | OB.TRI.NOTE ---
HPI - General General Date of Admission: 06/05/22 HPI Narrative DELON HAJI, is a 31 F who [facility] History Chlamydia Depression History of drug abuse History of substance abuse Seizure disorder Smoking addiction Home Medications lamotrigine 200 mg tablet (Lamictal) 225 mg PO BID 06/04/21 [History Last Taken 05/25/22 18:00] ondansetron 4 mg disintegrating tablet 4 mg PO Q6H PRN nausea and vomiting 30 days #30 tabs 02/24/22 [Rx Last Taken Unknown] folic acid 1 mg tablet 1 mg PO DAILY 05/25/22 [History Last Taken 05/25/22 11:00] Allergy/AdvReac Type Severity Reaction Status Date / Time lactose AdvReac Upset Verified 06/05/22 12:56 Stomach tomato AdvReac Vomiting Verified 06/05/22 12:56 Family History Other Alcohol abuse Arthritis Depression Seizures Social History Smoking Status: Current every day smoker tobacco type: cigarettes alcohol intake: current alcohol intake frequency: a few times a week details: Hx of alcohol abuse substance use type: does not use, former substance user Date of last use: 2010 , opiates, painkillers and methamphetamine what type of physical activity do you participate in: walking frequency: daily History Elective abortions Hx Para 3 Spontaneous abortions Hx # Term Pregnancies Ectopic pregnancies Hx # Pregnancies Multiple births # of living children
== END 2022-06-05 13:40 | disposition home or self-care (01) ==
LOC: WPOUT 12:28 → WP 12:29
PROVIDERS: Referring Provider Obstetrics & Gynecology; Visit Provider Obstetrics & Gynecology
DX: Z34.90 Encounter for supervision of normal pregnancy, unspecified, unspecified trimester (principal)
CPT/HCPCS: 59025; 59050; 99218; G0378

== ENCOUNTER 2022-06-10 02:52 | Inpatient (IN) | payer MEDICAID, SELFPAY ==
[2022-06-09 09:55] VITALS: BP 139/76; PULSE 99; TEMP 36.7; O2SAT 99
[2022-06-09 10:06] VITALS: BMI 33.1
[2022-06-09] MEDS: Acetaminophen 500 MG Tablet 1000 MG PO ×2 (11:53→23:49)
[2022-06-09 19:49] VITALS: PULSE 96; TEMP 36.4; O2SAT 99
[2022-06-09 19:53] VITALS: BP 130/62; PULSE 85
[2022-06-09 22:36] LABS: ROM Internal Control Test YES-OK TO RESULT pt. (Internal QC)
[2022-06-09 22:38] LABS: ROM Patient Test POSITIVE (Negative)
[2022-06-09 23:16] LABS: Absolute Lymphocyte Count 3.62 X10^3/uL (0.83-4.51); Absolute Neutrophil Count 9.2 X10^3/uL (2.0-7.7); Basophil# 0.06 X10^3/uL; Basophil% 0.4 % (0-1); Eosinophil# 0.16 X10^3/uL; Eosinophils% 1.1 % (0-5); Hematocrit 34.5 % (37-47); Hemoglobin 11.6 g/dL (12.0-15.0); Lymphocyte # 3.62 X10^3/ul (0.83-4.51); Lymphocyte % 25.9 % (19-41); Mean Corp Hgb Conc 33.6 g/dL (32-36); Mean Corpuscular Hgb 31.2 pg (27.0-32.0); Mean Corpuscular Volume 92.7 fL (81-99); Mean Platelet Vol. 10.2 fl (6.2-12.0); Monocyte# 0.82 X10^3/uL; Monocyte% 5.9 % (0-10); NRBC Flagged by Analyzer 0 % (0-5); Neutrophil # 9.19 X10^3/uL (2.7-7.7); Neutrophil % 65.9 % (47-70); Platelet Count 293 K/mm3 (150-450); RBC Distribution Width CV 12.9 % (11.6-14.6); RBC Distribution Width SD 43.3 fl (35.1-43.9); Red Blood Count 3.72 M/mm3 (4.2-5.4)
[2022-06-09] MEDS: 0.9% Saline Lock 10 ML Syringe IV (23:24)
[2022-06-10] VITALS (41 sets, daily range): BP systolic 101–134; BP diastolic 50–73; PULSE 72–102; RESP 16–18; TEMP 36.4–37.3; O2SAT 97–100
[2022-06-10] MEDS: Lactated Ringers 1,000 ML 200 ML IV ×2 (03:01→08:35)
[2022-06-10] MEDS: LACTATED RINGERS 500 ML 999 ML IV (03:05)
--- NOTE | 2022-06-10 03:19 | HP.PCM.OB_ITS ---
History and Physical Date of Admission: 06/10/22 HPI: 31-year-old G5, P4 living 5 at 37/6 weeks, QUYEN 06/25/2022 by LMP, admitted in labor. Patient presented earlier yesterday morning with contractions and bleeding, no bleeding noted on exam aside from scant on blood during cervical exam. Patient did not make any cervical change and status was reassuring, therefore she was discharged with labor precautions at the time. Patient presented again to triage yesterday evening with worsening contractions. She was found to be 3 to 4 cm. She then was admitted to observation for possible labor overnight, she had an increase in bleeding. Patient was then seen and evaluated and admitted for labor. Reports vaginal bleeding. Reports movement. Reports contractions. Denies leaking of fluid. Denies headache or vision changes, chest pain or shortness of breath, nausea or vomiting, diarrhea constipation, fevers or chills. Denies seizure. complicated by: Class I obesity, epilepsy (partial mall seizures, on Lamictal, being seen by neurologist and has had maternal- medicine consult in this ), depression. Last growth ultrasound on 06/05 fetus was measuring 3148 g at the 58th percentile, BOGDAN was 9. [employer] history: G1: 38-week G2: 38-week G3: 37-week G4: 35-week , twins G5: Current Medical history 1. Epilepsy 2. Depression not on medication Surgical history: Denies Allergies: No known drug allergies Family history: Denies history of blood clots or bleeding disorders, otherwise noncontributory Medications 1. Lamictal 250 mg twice daily 2. Promethazine as needed Social: Denies tobacco, alcohol, drug use. Prior hx of meth use about 10 years ago. Review of system: Negative otherwise stated above Physical exam: Blood pressure 117/66, temp 97.8 ?F, pulse 96, oxygen saturation 99% on room air General: Patient is no acute distress, uncomfortable with contractions but comfortable between HEENT: Normal cephalic/atraumatic Cardiorespiratory: No increased effort, regular heart rate Abdomen: Soft, nontender, gravid, nondistended. Palpates soft between contractions. Extremities: No edema Neurologic: No focal deficits, cranial nerves II through XII grossly intact Musculoskeletal: Strength 5 out of 5 throughout extremities Speculum exam: Moderate amount of watery bloody fluid upon placement of speculum, red blood cells on slide. Cervical exam 6/80/-3, bulging membranes artificially ruptured bloody fluid. Palpate area of blood clot after AROM near cervix. Bedside ultrasound: Confirmed anterior placenta. BOGDAN 3.45 with 1 pocket of fluid. Cephalic position panel: Syphilis negative Gonorrhea and chlamydia negative Hepatitis B/C/HIV all negative Rubella immune GBS negative B positive FHR: 135/mod arnold/+accel/no decel [place]: q4-5 Assessment/plan: 31-year-old G5, P4 living 5 at 37/6 weeks, QUYEN 06/25/2022 by LMP, admitted in labor. complicated by: Class I obesity, epilepsy (partial mall seizures, on Lamictal, being seen by neurologist and has had maternal- medicine consult in this ), depression. ?Based on exam and ultrasound, possible rupture of membranes with bloody fluid. BOGDAN on Wednesday was 9, today 3.45. Amniotic fluid can fluctuate, however she did have moderate amount of bloody fluid on exam. Did have remaining membranes palpated. Unable to determine if she did have partial amniotic rupture due to blood. PROM was positive, slide showed RBCs only. Artificial rupture of membranes was done after discussion with the patient and her partner at bedside. Patient had been making cervical change and was now 6 cm. With the amount of bleeding that she is having and cervical dilation, decision to proceed with artificial rupture of membranes and labor was made. Clinical scenario and risks of late baby were discussed with patient and partner. Understand risks and agreed to AROM. ?At this time bleeding could be secondary to rupture of membranes versus partial abruption. Patient does not have a tender abdomen, she has relief from pain between contractions. tracing has been category 1 throughout admission. Patient stable. At this time no indications for need for delivery. ?GBS negative ?CBC stable, Rh+ blood type ?History of epilepsy on Lamictal twice daily, continue. ?History of depression, not on medications. ?Patient for epidural ?Continue close monitoring.
[2022-06-10] MEDS: fentaNYL-bupivacaine (epidural) 100 ML BAG EPIDURAL ×2 (04:07→08:15)
[2022-06-10 05:31] LABS: Amphetamine Urine VISTA NEGATIVE (<1000 ng/mL); Barbiturate Urine VISTA NEGATIVE (< 200 ng/mL); Benzodiazepine Urine VISTA NEGATIVE (< 200 ng/mL); Cocaine Urine VISTA NEGATIVE (< 300 ng/mL); Ecstacy Urine VISTA NEGATIVE (< 500 ng/mL); Methadone Urine VISTA NEGATIVE (< 300 ng/mL); PCP Urine VISTA NEGATIVE (< 25 ng/mL); THC Urine VISTA NEGATIVE (< 50 ng/mL); Vista UDS pH Range 7
[2022-06-10] MEDS: Ondansetron 4 MG/2 ML Vial IV (07:08)
[2022-06-10] MEDS: lamoTRIgine 100 MG Tablet 250 MG PO ×2 (07:11→20:39)
[2022-06-10] MEDS: Oxytocin 10 UNITS/ML Vial IM (09:32)
[2022-06-10] MEDS: Oxytocin 15 Units/NS 250ml 15 UNITS/250 ML IV.SOLN 83 UNITS IV (09:32)
[2022-06-10] MEDS: Methylergonovine 0.2 MG/ML Ampul IM (09:33)
--- NOTE | 2022-06-10 09:40 | EX.PCM.OBRPT ---
Vaginal Delivery Operative Information Date of Procedure: 06/10/22 Pre-Operative Diagnosis: [place] intrauterine , vaginal bleeding in labor Post-Operative Diagnosis: [place] intrauterine , small partial abruption Surgery / Procedure Performed: Spontaneous Vaginal Delivery Type of Anesthesia: Epidural Estimated Blood Loss: 400 cc Findings Description of Procedure: Spontaneous vaginal delivery of viable female. Nuchal cord x1, loose, reduced. Baby to mom. Cord clamped and cut. Spontaneous delivery of placenta. Small approximately 50 cc clot noted on placenta. Bilateral labia minora abrasions, hemostatic. Methergine given x1 prophylactically. Infant A Gender: Female (1 minute): 8 (5 minute): 9 Complication Complications: None
[2022-06-10] MEDS: Ibuprofen 600 MG Tablet PO (14:00)
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
[2022-06-10] MEDS: Acetaminophen 500 MG Tablet 1000 MG PO (20:39)
[2022-06-11] VITALS (8 sets, daily range): BP systolic 103–135; BP diastolic 53–80; PULSE 79–108; RESP 16–20; TEMP 36.1–36.3; O2SAT 98–99
[2022-06-11 04:21] LABS: Hemoglobin 10.4 g/dL (12.0-15.0); Mean Corp Hgb Conc 34.7 g/dL (32-36); Mean Corpuscular Hgb 31.9 pg (27.0-32.0); Mean Platelet Vol. 9.7 fl (6.2-12.0); Platelet Count 246 K/mm3 (150-450); RBC Distribution Width CV 12.8 % (11.6-14.6); Red Blood Count 3.26 M/mm3 (4.2-5.4); White Blood Count 11.2 K/mm3 (4.4-11.0)
--- NOTE | 2022-06-11 07:27 | PCM.PN.OB ---
Subjective Subjective Feeling well overall. Lochia minimal. Working on breast-feeding. Objective Data Objective Data Vital Signs: Vital Signs Temp Pulse Resp BP Pulse Ox O2 Del Method 97.7 F L 86 18 103/53 L 97 Room Air 06/10/22 19:53 06/11/22 04:06 06/11/22 04:06 06/11/22 04:06 06/10/22 16:03 06/11/22 04:06 Oxygen Delivery Method Room Air Weight: 98.883 kg Body Mass Index (BMI) 33.1 Intake & Output: Intake and Output for Last 24 Hours 06/09/22 06/10/22 06/11/22 23:59 23:59 23:59 Intake Total 1936.66 / 1936.66 Output Total 2180 / 2180 Balance -243.34 / -243.34 Lab / Micro Data Attestation: I reviewed the patient's lab results. Result Diagrams: 06/11/22 04:10 Labs: Laboratory Results - last 24 hr 06/11/22 04:10: WBC 11.2 H, RBC 3.26 L, Hgb 10.4 L, Hct 30.0 L, MCV 92.0, MCH 31.9, MCHC 34.7, RDW Std Deviation 42.0, RDW Coeff of Abiodun 12.8, Plt Count 246, MPV 9.7 Physical Exam Const alert, oriented x3 and no apparent distress HEENT normocephalic Head and Scalp: atraumatic Neck full ROM Resp normal respiratory effort Cardio regular rate GI normal to inspection, nondistended, normoactive bowel sounds GI Narrative: Uterus 2 cm below umbilicus Back/Spine normal ROM Extremity normal to inspection Extremity Narrative: Minimal pedal edema Neuro no focal motor deficits and no sensory deficits noted Psych mental status grossly normal and affect normal Assessment & Plan (1) Vaginal delivery: PLAN: day 1 status post . Complicated by vaginal bleeding during labor and delivery, small abruption noted on placenta. CBC today with acute blood loss anemia, stable from admission hemoglobin. Patient has history of epilepsy on Lamictal. Continue Lamictal twice daily. Patient plans to get in contact with her neurologist for plan of care post . Desires home-going day 2. (2) Epilepsy: QUALIFIERS: Epilepsy type: generalized idiopathic Intractability: not intractable Status epilepticus: without status epilepticus Qualified Code(s): G40.309 - Generalized idiopathic epilepsy and epileptic syndromes, not intractable, without status epilepticus (3) Anxiety and depression:
--- NOTE | 2022-06-11 07:29 | DCINST_ITS ---
Discharge Instructions Diet Discharge Diet: No restrictions Activity Discharge Activity: Return to Normal Activity and May Shower May resume sexual activity in: 4-6 weeks Weight Bearing Status: Weight bearing as tolerated Lifting Restrictions: No greater than 25 pounds Dressing / Incision Call your doctor if you observe: Fever of 101 or Higher, Change in Color, Inability to urinate, Using more than 1 pad per hour, Shortness of breath, Dizziness, Swelling in the ankles, Chest pain and Calf discomfort Follow Up Care Please Follow Up With: Bebeto West MD When: 3 and 6-week visit Test Results: Test results from this visit will be discussed in further detail at your follow- up appointment, if applicable. Discharge Plan Admission Admit Date/Time: 06/10/22 02:52 Primary Reason for Your Visit: Vaginal delivery Attending Provider: Ani West Primary Care Provider: Talita Christine Primary Instructions Additional Instructions / Restrictions: patient instructed to return for LOF or regular contractions, decreased movement additional vaginal bleeding. keep next office appointment Discharge Orders/Prescriptions Prescriptions: No Action lamotrigine [Lamictal] 200 mg Tablet 250 mg PO BID promethazine 12.5 mg Tablet 12.5 mg PO Q6H PRN (Reason: Nausea) Referrals / Follow Up: Care PhysicianTalita Primary [Primary Care Provider] - Disposition Disposition (needs filled in before D/C Order can be placed): Home, Self Care
[2022-06-11] MEDS: Benzocaine/Lanolin/Aloe Vera 1 SPRAY EACH TOPICAL (07:47)
[2022-06-11] MEDS: lamoTRIgine 100 MG Tablet 250 MG PO ×2 (08:43→21:05)
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
[2022-06-11] MEDS: Ibuprofen 600 MG Tablet PO (21:04)
[2022-06-12 02:40] VITALS: BP 119/60; PULSE 89; RESP 18; TEMP 36.5; O2SAT 98
[2022-06-12 02:43] VITALS: BP 119/60; PULSE 87
[2022-06-12 08:05] VITALS: BP 113/61; PULSE 84; RESP 16; TEMP 36.9; O2SAT 99
[2022-06-12 08:08] VITALS: BP 113/61; PULSE 85
--- NOTE | 2022-06-12 08:30 | PCM.PN.OB ---
Subjective Subjective No overnight complaints Objective Data Objective Data Vital Signs: Vital Signs Temp Pulse Resp BP Pulse Ox O2 Del Method 98.4 F 85 16 113/61 99 Room Air 06/12/22 08:05 06/12/22 08:08 06/12/22 08:05 06/12/22 08:08 06/12/22 08:05 06/12/22 08:05 Oxygen Delivery Method Room Air Weight: 218 lb Body Mass Index (BMI) 33.1 Intake & Output: Intake and Output for Last 24 Hours 06/10/22 06/11/22 06/12/22 23:59 23:59 23:59 Intake Total 1936.66 / 1936.66 Output Total 2180 / 2180 Balance -243.34 / -243.34 Lab / Micro Data Result Diagrams: 06/11/22 04:10 Physical Exam Const alert, oriented x3, no apparent distress, average body habitus, healthy appearing and well nourished HEENT normocephalic and moist oral mucous membranes Eyes PERRL Resp normal respiratory effort, no retractions and no use of accessory muscles Extremity normal to inspection and full ROM Neuro moves all extremities Psych mental status grossly normal, affect normal, speech normal and activity/motor behavior normal Assessment & Plan (1) Vaginal delivery: PLAN: day 2. Breast-feeding. Pain well controlled. Okay to discharge home today
[2022-06-12] MEDS: Dibucaine 30 GM Tube 1 APPLIC TOPICAL (10:35)
[2022-06-12] MEDS: Ibuprofen 600 MG Tablet PO (10:35)
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
[2022-06-12 14:45] VITALS: BP 132/76; PULSE 102; RESP 16; TEMP 37.2; O2SAT 99
[2022-06-12 15:09] VITALS: BP 132/76; PULSE 97; O2SAT 96
[2022-06-12] MEDS: Acetaminophen 500 MG Tablet 1000 MG PO (15:25)
== END 2022-06-12 17:50 | disposition home or self-care (01) | DRG 560 ==
LOC: WPOUT 02:55 → WP 02:55
PROVIDERS: Admitting Provider Student in an Organized Health Care Education/Training Program; Referring Provider Student in an Organized Health Care Education/Training Program; Visit Provider Student in an Organized Health Care Education/Training Program
DX: O99.354 Diseases of the nervous system complicating childbirth (principal); Z37.0 Single live birth; G40.309 Generalized idiopathic epilepsy and epileptic syndromes, not intractable, without status epilepticus; Z3A.37 37 weeks gestation of pregnancy; O99.214 Obesity complicating childbirth; O69.81X0 Labor and delivery complicated by cord around neck, without compression, not applicable or unspecified
CPT/HCPCS: 59025; 59050; 76815; 80307; 84112; 85025; 85027; 86850; 86900; 86901; 99218; 99406; J7120; A4216; G0378; J2405

== ENCOUNTER 2022-06-17 16:07 | Emergency (ER) | payer MEDICAID, SELFPAY ==
[2022-06-17 16:08] VITALS: BP 134/81; PULSE 99; RESP 16; TEMP 36.7; O2SAT 100; BMI 31.1
--- NOTE | 2022-06-17 18:18 | US_ITS ---
STUDY: ULTRASOUND TRANSVAGINAL CLINICAL: Female, 31 years old. ? retained products TECHNIQUE: Transvaginal COMPARISON: None. FINDINGS: Normal uterine size measuring 13.6 x 10.6 x 8.9 cm in maximal craniocaudal dimension. There are no myometrial masses. Endometrial lining is somewhat irregular and demonstrates mild vascularity which may be consistent with retained products of conception.. There are no endometrial masses, and there is no fluid in the endometrial cavity. Normal uterine cervix. Normal right ovary, measuring 2.5 x 2 x .9 cm. There are multiple follicles without a dominant cyst. Normal left ovary is not visualized. There is no adnexal mass There is no free fluid in the pelvis. US/Transvaginal Non- IMPRESSION: Findings which may be consistent with retained products of conception. Clinical correlation recommended Electronically Signed: Korey Schmidt MD at 19:28 EST ,
--- NOTE | 2022-06-17 18:28 | EDS_ITS ---
HPI HPI - Female History of Present Illness Chief Complaint: Vag Bleeding Informant: patient Narrative Narrative: 31-year-old G5, P5 at 1 week presenting to the emergency room with vaginal bleeding. Patient states that she has been experiencing intermittent heavy vaginal bleeding. Today she used a full pad. She states that she does not understand why that her bleeding seems to come and go. She does note some suprapubic cramping. No fevers or vaginal discharge. No tissue passing. No syncope. She did not talk with her doctors regarding this. She was delivered by Patti Patel vaginally at 38 weeks. She is breast-feeding. The baby has been doing well. This is the only child that the patient has custody of. [facility] Medical History Chlamydia Depression History of drug abuse History of pre-term labor History of substance abuse Seizure disorder Smoking addiction Vaginal delivery Home Medications lamotrigine 200 mg tablet (Lamictal) 250 mg PO BID 06/04/21 [History Last Taken 06/09/22 08:30] promethazine 12.5 mg tablet 12.5 mg PO Q6H PRN Nausea 06/09/22 [History Last Taken Unknown] Allergy/AdvReac Type Severity Reaction Status Date / Time tomato AdvReac Vomiting Verified 06/17/22 16:07 Family History Other Alcohol abuse Arthritis Depression Seizures Social History Smoking Status: Current every day smoker tobacco type: cigarettes alcohol intake: current alcohol intake frequency: a few times a week details: Hx of alcohol abuse substance use type: does not use, former substance user Date of last use: 2010 , opiates, painkillers and methamphetamine what type of physical activity do you participate in: walking frequency: daily ROS ROS ED Constitutional Constitutional ED: Denies chills or weight loss Eyes Eyes: Denies change in vision or diplopia ENT ENT ED: Denies ear pain, rhinorrhea or sore throat Cardiovascular Cardiovascular: Denies chest pain, orthopnea, palpitations or racing heartbeat Respiratory/Chest Respiratory/Chest: Denies cough, dyspnea or orthopnea Gastrointestinal Gastrointestinal: Denies abdominal pain, diarrhea, nausea or vomiting Genitourinary Genitourinary ED: Reports other Details: Vaginal bleeding ; Denies dysuria, hematuria or urinary frequency Musculoskeletal Musculoskeletal: Denies arthralgias or myalgias Integumentary Denies abscess or rash Neurologic Neurologic: Denies headache(s) or weakness Psychiatric Psychiatric: Denies anxiety, depression, suicidal ideation or suicidal thoughts Endocrine Endocrinology: Denies polydipsia, polyphagia or polyuria Allergic/Immunologic Allergic/Immunologic ED: Denies mouth swelling, tongue swelling or urticaria EXAM Physical Exam Const Vital Signs: 06/17/22 16:08 Temperature 98.0 F Temperature Source Temporal Pulse Rate 99 Respiratory Rate 16 Blood Pressure 134/81 H Blood Pressure Mean 98 Pulse Ox 100 Oxygen Delivery Method Room Air Positive well nourished, well developed and obese General Appearance ED: well developed Nutritional Appearance: obese HEENT Reports normocephalic, head/scalp atraumatic and moist mucous membranes Eyes PERRL and EOMs intact bilaterally Neck no lymphadenopathy, supple and no JVD Resp normal respiratory effort and clear to auscultation bilaterally Cardio regular rate, regular rhythm and no murmurs GI normal to inspection, nondistended, normoactive bowel sounds and non-tender Palpation: soft Back/Spine no CVA tenderness and normal ROM Extremity normal to inspection General Extremety ED: Negative for edema General Extremity: Negative for edema Neuro oriented x3 and CN's II-XII intact bilaterally Sensorium / Orientation: alert Motor Exam: strength 5/5 throughout Psych mental status grossly normal Mood & Affect: Negative for depressed or tearful Skin no rashes or lesions noted and no wounds MDM MDM MDM Narrative Medical decision making narrative: Hemoglobin is 11.5. Pelvic ultrasound was obtained. This was read by radiology reviewed by myself. I also discussed this with on-call REAMING MACHINE OPERATOR. They have reviewed the images and are recommending Methergine for 7 days. Spoke with the patient she is agreeable to this. We will have her follow-up in the office next week. Lab Data Attestation: I reviewed the patient's lab results. Labs: Laboratory Results - last 24 hr 06/17/22 06/17/22 06/17/22 18:18 18:18 19:15 WBC Cancelled Corrected WBC Cancelled RBC Cancelled Hgb Cancelled Hct Cancelled MCV Cancelled MCH Cancelled MCHC Cancelled RDW Std Deviation Cancelled RDW Coeff of Abiodun Cancelled Plt Count Cancelled MPV Cancelled Immature Gran % (Auto) Cancelled Neut % (Auto) Cancelled Lymph % (Auto) Cancelled [place] % (Auto) Cancelled Eos % (Auto) Cancelled Baso % (Auto) Cancelled Absolute Neuts (auto) Cancelled Absolute Lymphs (auto) Cancelled Total Counted Cancelled Neutrophils % (Manual) Cancelled Band Neutrophils % Cancelled Lymphocytes % (Manual) Cancelled Monocytes % (Manual) Cancelled Eosinophils % (Manual) Cancelled Basophils % (Manual) Cancelled Metamyelocytes % Cancelled Myelocytes % Cancelled Promyelocytes % Cancelled Blast Cells % Cancelled Plasma Cell % (Manual) Cancelled Other Cells % Cancelled Nucleated RBC % Cancelled Nucleated RBCs/100 WBC Cancelled Differential Comment Cancelled Diff Path Review Cancelled Hypersegmented Neuts Cancelled Atypical Lymphocytes Cancelled Reactive Lymphocytes Cancelled Smudge Cells Cancelled Toxic Granulation Cancelled Toxic Vacuolation Cancelled Dohle Bodies Cancelled Brent Rods Cancelled Platelet Estimate Cancelled Plt Morphology Comment Cancelled RBC Morphology Cancelled Polychromasia Cancelled Hypochromasia Cancelled Poikilocytosis Cancelled Basophilic Stippling Cancelled Anisocytosis Cancelled Microcytosis Cancelled Macrocytosis Cancelled Spherocytes Cancelled Sickle Cells Cancelled Target Cells Cancelled Tear Drop Cells Cancelled Ovalocytes Cancelled Stomatocytes Cancelled [place] Air Bodies Cancelled Soldier Cells Cancelled Bite Cells Cancelled Crenated Cell Cancelled Acanthocytes (Spur) Cancelled Rouleaux Cancelled Schistocytes Cancelled Blood Type TNP B POSITIVE 06/17/22 20:06 WBC 9.2 Corrected WBC RBC 3.68 L Hgb 11.5 L Hct 34.7 L MCV 94.3 MCH 31.3 MCHC 33.1 RDW Std Deviation 43.5 RDW Coeff of Abiodun 12.7 Plt Count 344 MPV 8.8 Immature Gran % (Auto) 0.400 Neut % (Auto) 46.6 L Lymph % (Auto) 41.3 H [place] % (Auto) 7.4 Eos % (Auto) 3.6 Baso % (Auto) 0.7 Absolute Neuts (auto) 4.3 Absolute Lymphs (auto) 3.81 Total Counted Neutrophils % (Manual) Band Neutrophils % Lymphocytes % (Manual) Monocytes % (Manual) Eosinophils % (Manual) Basophils % (Manual) Metamyelocytes % Myelocytes % Promyelocytes % Blast Cells % Plasma Cell % (Manual) Other Cells % Nucleated RBC % 0 Nucleated RBCs/100 WBC Differential Comment Diff Path Review Hypersegmented Neuts Atypical Lymphocytes Reactive Lymphocytes Smudge Cells Toxic Granulation Toxic Vacuolation Dohle Bodies Brent Rods Platelet Estimate Plt Morphology Comment RBC Morphology Polychromasia Hypochromasia Poikilocytosis Basophilic Stippling Anisocytosis Microcytosis Macrocytosis Spherocytes Sickle Cells Target Cells Tear Drop Cells Ovalocytes Stomatocytes [place] Air Bodies Soldier Cells Bite Cells Crenated Cell Acanthocytes (Spur) Rouleaux Schistocytes Blood Type Radiography Diagnostic Testing: Clinical Impression(s) from Imaging Studies Transvaginal US 06/17/22 18:18 IMPRESSION: Findings which may be consistent with retained products of conception. Clinical correlation recommended Electronically Signed: Korey Schmidt MD at 19:28 EST Reading Location ID and State: [facility] / [place] , Service support , Discharge Plan Triage Chief Complaint: Vag Bleeding ED Provider: Maurisio Richards Dx/Rx/DC Orders Prescriptions: No Action lamotrigine [Lamictal] 200 mg Tablet 250 mg PO BID promethazine 12.5 mg Tablet 12.5 mg PO Q6H PRN (Reason: Nausea) Primary Care Provider: Care Physician,No Primary Referrals: Care Physician,No Primary [Primary Care Provider] -
[2022-06-17 20:10] LABS: Absolute Lymphocyte Count 3.81 X10^3/uL (0.83-4.51); Absolute Neutrophil Count 4.3 X10^3/uL (2.0-7.7); Basophil# 0.06 X10^3/uL; Basophil% 0.7 % (0-1); Eosinophil# 0.33 X10^3/uL; Eosinophils% 3.6 % (0-5); Hematocrit 34.7 % (37-47); Hemoglobin 11.5 g/dL (12.0-15.0); Lymphocyte # 3.81 X10^3/ul (0.83-4.51); Lymphocyte % 41.3 % (19-41); Mean Corp Hgb Conc 33.1 g/dL (32-36); Mean Corpuscular Hgb 31.3 pg (27.0-32.0); Mean Corpuscular Volume 94.3 fL (81-99); Mean Platelet Vol. 8.8 fl (6.2-12.0); Monocyte# 0.68 X10^3/uL; Monocyte% 7.4 % (0-10); NRBC Flagged by Analyzer 0 % (0-5); Neutrophil % 46.6 % (47-70); Platelet Count 344 K/mm3 (150-450); RBC Distribution Width CV 12.7 % (11.6-14.6); RBC Distribution Width SD 43.5 fl (35.1-43.9); Red Blood Count 3.68 M/mm3 (4.2-5.4); White Blood Count 9.2 K/mm3 (4.4-11.0)
[2022-06-17 21:16] VITALS: BP 115/90; PULSE 93; RESP 15; O2SAT 98
== END 2022-06-17 21:17 | disposition home or self-care (01) ==
PROVIDERS: Emergency Provider Emergency Medicine; Visit Provider Emergency Medicine
DX: O72.1 Other immediate postpartum hemorrhage (principal); O99.215 Obesity complicating the puerperium; O99.335 Smoking (tobacco) complicating the puerperium; F17.210 Nicotine dependence, cigarettes, uncomplicated
CPT/HCPCS: 76830; 85025; 86900; 86901; 99282; A4216

== ENCOUNTER 2022-06-27 22:10 | Emergency (ER) | payer MEDICAID, SELFPAY ==
[2022-06-27 22:11] VITALS: BP 136/83; PULSE 121; RESP 19; TEMP 36.9; O2SAT 97; BMI 30.7
--- NOTE | 2022-06-27 22:34 | RAD_ITS ---
INDICATION: cough EXAMINATION/TECHNIQUE: X-RAY - XR Chest 2 Views COMPARISON: 11/05/21. FINDINGS: LINES/DEVICES: None. LUNGS: No consolidation, edema or effusion. No pneumothorax. MEDIASTINUM AND CARDIOVASCULAR STRUCTURES: Cardiac silhouette not enlarged. BONES AND SOFT TISSUES: Unremarkable. RAD/Chest PA and Lateral IMPRESSION: No radiographic evidence of acute cardiopulmonary disease. Electronically Signed: Kevin Sargent MD at 22:59 EST ,
--- NOTE | 2022-06-27 22:39 | EDS_ITS ---
HPI History of Present Illness Chief Complaint: Shortness of Breath Narrative Narrative: Patient is a 31-year-old female with past medical history of epilepsy as well as smoking. She states that over the past 3 to 4 days she has had nasal congestion sore throat and cough. She states that she had a fever for the first 1 to 2 days which is since resolved. She denies any known sick contacts but states she is staying at a nursing home. She states she has concern for infectious process b ecause of her recent symptoms and secondary to this comes in for evaluation [facility] Medical History Chlamydia Depression History of drug abuse History of pre-term labor History of substance abuse Seizure disorder Smoking addiction Vaginal delivery Home Medications lamotrigine 200 mg tablet (Lamictal) 250 mg PO BID 06/04/21 [History Last Taken 06/09/22 08:30] promethazine 12.5 mg tablet 12.5 mg PO Q6H PRN Nausea 06/09/22 [History Last Taken Unknown] methylergonovine 0.2 mg tablet (Methergine) 0.2 mg PO TID 7 days #20 tabs 06/17/22 [Rx Last Taken Unknown] azelastine 137 mcg (0.1 %) nasal spray aerosol 2 spray intranasal BID #30 mL 06/27/22 [Rx Last Taken Unknown] ibuprofen 600 mg tablet 600 mg PO 4X/DAY PRN PRN fever or pain #40 tabs 06/27/22 [Rx Last Taken Unknown] promethazine 6.25 mg-codeine 10 mg/5 mL syrup 5 ml PO 4X/DAY PRN PRN cough 7 days #140 mL 06/27/22 [Rx Last Taken Unknown] Allergy/AdvReac Type Severity Reaction Status Date / Time tomato AdvReac Vomiting Verified 06/27/22 22:14 Family History Other Alcohol abuse Arthritis Depression Seizures Social History Smoking Status: Current every day smoker tobacco type: cigarettes alcohol intake: current alcohol intake frequency: a few times a week details: Hx of alcohol abuse substance use type: does not use, former substance user Date of last use: 2010 , opiates, painkillers and methamphetamine what type of physical activity do you participate in: walking frequency: daily ROS ROS ED Constitutional Constitutional ED: Reports chills and fever(s) ENT ENT ED: Reports rhinorrhea and sore throat Cardiovascular Cardiovascular: Denies chest pain Respiratory/Chest Respiratory/Chest: Reports cough and dyspnea Gastrointestinal Gastrointestinal: Denies abdominal pain, diarrhea, nausea or vomiting Genitourinary Genitourinary ED: Denies dysuria Musculoskeletal Musculoskeletal: Denies myalgias Integumentary Denies rash Neurologic Neurologic: Denies headache(s) Hematologic/Lymphatic Hematologic/Lymphatic: Denies easy bleeding or easy bruising EXAM Physical Exam Const Vital Signs: 06/27/22 22:11 06/27/22 22:16 Temperature 98.5 F Temperature Source Temporal Pulse Rate 121 H Respiratory Rate 19 H Respiratory Effort Short of Breath Respiratory Depth Normal Respiratory Pattern Normal Blood Pressure 136/83 H Blood Pressure Mean 100 Pulse Ox 97 Oxygen Delivery Method Room Air Positive well nourished and well developed General Appearance ED: well developed HEENT HEENT Narrative: Bilateral TMs are retracted but show no secondary changes to suggest infection. Nasal mucosa is hyperemic and boggy with enlarged inferior nasal turbinates. There is cobblestoning the posterior pharynx consistent with sinus drainage without airway edema or compromise. Eyes PERRL and EOMs intact bilaterally Neck supple and no JVD Neck Narrative: Positive anterior cervical lymphadenopathy noted Resp normal respiratory effort Resp Narrative: Breath sounds are diminished throughout with faint rhonchi in the bilateral lower lobes otherwise no nasal flaring retractions tachypnea or accessory muscle use Cardio regular rhythm Rate: tachycardic and other Other Details: Radial pulses are +2-4 bilaterally are equal and symmetric Extremity normal to inspection Extremity Narrative: No asymmetric edema no pitting edema negative Homans' sign bilaterally Neuro oriented x3 and CN's II-XII intact bilaterally Sensorium / Orientation: alert Psych mental status grossly normal Skin no rashes or lesions noted MDM MDM MDM Narrative Medical decision making narrative: Patient presented to the ER afebrile and in no acute respiratory distress. With her report of muscle aches nasal congestion and cough symptoms are most consistent with a viral illness and therefore COVID and influenza swabs will be obtained. Chest x-ray will be ordered as well to rule out pneumonia especially with smoking history. Viral swabs were negative and chest x-ray revealed no acute infiltrate or pneumothorax. At this time the patient is not in respiratory distress she is not requiring supplemental oxygen and as her work-up and exam is consistent with a viral upper respiratory infection she will be given symptomatic medications but as she is in no acute distress is otherwise safe for discharge Radiography Diagnostic Testing: Clinical Impression(s) from Imaging Studies Chest X-Ray 06/27/22 22:34 IMPRESSION: No radiographic evidence of acute cardiopulmonary disease. Electronically Signed: Kevin Sargent MD at 22:59 EST , 2 view chest x-ray as interpreted by the emergency medicine physician reveals no acute infiltrate pneumothorax or pleural effusion Discharge Plan Triage Chief Complaint: Shortness of Breath ED Provider: Charbel Zavala Dx/Rx/DC Orders Clinical Impression: Viral upper respiratory tract infection, Epilepsy Instructions: ED URI, Viral, No Abx (Adult) Prescriptions: New promethazine-codeine 6.25-10 mg/5 mL syrup 5 ml PO 4X/DAY PRN PRN (Reason: cough) 7 Days Qty: 140 0RF azelastine 137 mcg (0.1 %) aerosol,spray 2 spray intranasal BID Qty: 30 0RF Rx Instructions: administer into each nostril ibuprofen 600 mg tablet 600 mg PO 4X/DAY PRN PRN (Reason: fever or pain) Qty: 40 0RF No Action lamotrigine [Lamictal] 200 mg Tablet 250 mg PO BID promethazine 12.5 mg Tablet 12.5 mg PO Q6H PRN (Reason: Nausea) methylergonovine [Methergine] 0.2 mg tablet 0.2 mg PO TID 7 Days Qty: 20 0RF Primary Care Provider: Care Physician,No Primary Referrals: Myra Aguilar, [Med Staff - Campaign Assistant] - Care Physician,No Primary [Primary Care Provider] - Activity Restrictions/Additional Instructions: Your work-up today indicates you have a viral upper respiratory infection. This will last on average 18 to 21 days. Take the medications as directed to help control your symptoms and return to the ER should you have any further concerns Disposition Disposition: Home, Self Care
== END 2022-06-27 23:52 | disposition home or self-care (01) ==
PROVIDERS: Emergency Provider Emergency Medicine; Visit Provider Emergency Medicine
DX: J06.9 Acute upper respiratory infection, unspecified (principal); G40.909 Epilepsy, unspecified, not intractable, without status epilepticus; F17.210 Nicotine dependence, cigarettes, uncomplicated; R06.02 Shortness of breath; Z20.822 Contact with and (suspected) exposure to COVID-19
CPT/HCPCS: 71046; 87428; 99284

== ENCOUNTER 2022-07-24 19:48 | Emergency (ER) | payer MEDICAID, SELFPAY ==
[2022-07-24 19:50] VITALS: BP 112/78; PULSE 110; RESP 18; TEMP 36.1; O2SAT 100; BMI 28.0
== END 2022-07-24 22:05 | disposition left against medical advice (07) ==
LOC: ED 22:29
DX: Z53.21 Procedure and treatment not carried out due to patient leaving prior to being seen by health care provider (principal)

== ENCOUNTER 2022-07-29 19:49 | Emergency (ER) | payer MEDICAID, SELFPAY ==
[2022-07-29 19:50] VITALS: BP 123/76; PULSE 112; RESP 16; TEMP 35.6; O2SAT 98; BMI 28.8
== END 2022-07-29 19:58 | disposition left against medical advice (07) ==
LOC: ED 20:12
DX: Z53.21 Procedure and treatment not carried out due to patient leaving prior to being seen by health care provider (principal)
CPT/HCPCS: 99281

== ENCOUNTER 2022-07-29 20:52 | Emergency (ER) | payer MEDICAID, SELFPAY ==
[2022-07-29 20:53] VITALS: BP 115/87; PULSE 86; RESP 14; TEMP 36.1; O2SAT 100; BMI 29.2
[2022-07-29 22:52] VITALS: RESP 15
--- NOTE | 2022-07-29 23:53 | EX.ED.DYSGE1 ---
HPI History of Present Illness Chief Complaint: Seizure Narrative Narrative: Patient is a 32-year-old female with past medical history of epilepsy. She states she had a breakthrough seizure on 's [place] and then as well as today around 7 PM. She states she is on Lamictal and has been taking it once a day instead of twice a day as directed. states that each time she fell from a standing position and struck the left side of her head/face. Patient states that there has been no headache change in vision nausea or vomiting and she has had no sick symptoms recently. However because of the 2 recent breakthrough seizures and the fact she struck her head both times she comes in for evaluation [facility] Medical History Chlamydia Depression History of drug abuse History of pre-term labor History of substance abuse Seizure disorder Smoking addiction Vaginal delivery Home Medications lamotrigine 200 mg tablet (Lamictal) 250 mg PO BID 06/04/21 [History Last Taken 06/09/22 08:30] promethazine 12.5 mg tablet 12.5 mg PO Q6H PRN Nausea 06/09/22 [History Last Taken Unknown] methylergonovine 0.2 mg tablet (Methergine) 0.2 mg PO TID 7 days #20 tabs 06/17/22 [Rx Last Taken Unknown] azelastine 137 mcg (0.1 %) nasal spray aerosol 2 spray intranasal BID #30 mL 06/27/22 [Rx Last Taken Unknown] ibuprofen 600 mg tablet 600 mg PO 4X/DAY PRN PRN fever or pain #40 tabs 06/27/22 [Rx Last Taken Unknown] promethazine 6.25 mg-codeine 10 mg/5 mL syrup 5 ml PO 4X/DAY PRN PRN cough 7 days #140 mL 06/27/22 [Rx Last Taken Unknown] lamotrigine 25 mg tablet (Lamictal) 50 mg PO BID 30 days #120 tabs 07/30/22 [Rx Last Taken Unknown] Allergy/AdvReac Type Severity Reaction Status Date / Time tomato AdvReac Vomiting Verified 07/29/22 20:53 Family History Other Alcohol abuse Arthritis Depression Seizures Social History Smoking Status: Current every day smoker tobacco type: cigarettes alcohol intake: current alcohol intake frequency: a few times a week details: Hx of alcohol abuse substance use type: does not use, former substance user Date of last use: 2010 , opiates, painkillers and methamphetamine what type of physical activity do you participate in: walking frequency: daily ROS ROS ED Constitutional Constitutional ED: Denies chills or fever(s) Eyes Eyes: Denies change in vision ENT ENT ED: Denies sore throat Cardiovascular Cardiovascular: Denies chest pain Respiratory/Chest Respiratory/Chest: Denies cough or dyspnea Gastrointestinal Gastrointestinal: Denies abdominal pain, diarrhea, nausea or vomiting Genitourinary Genitourinary ED: Denies dysuria Musculoskeletal Musculoskeletal: Denies back pain, myalgias or neck pain Integumentary Reports Abrasions; Denies rash Neurologic Neurologic: Reports other Details: Positive seizure ; Denies headache(s) Hematologic/Lymphatic Hematologic/Lymphatic: Denies easy bleeding or easy bruising EXAM Physical Exam Const Vital Signs: 07/29/22 20:53 07/29/22 22:52 07/30/22 00:00 Temperature 96.9 F L Temperature Source Temporal Pulse Rate 86 83 Respiratory Rate 14 15 15 Blood Pressure 115/87 H 122/86 H Blood Pressure Mean 96 98 Pulse Ox 100 99 Oxygen Delivery Method Room Air Room Air Room Air Positive well nourished and well developed General Appearance ED: well developed HEENT Reports moist mucous membranes HEENT Narrative: Patient has soft tissue swelling with superficial abrasions and ecchymosis along the left orbit consistent with report of fall and head injury. However no signs of depressed or basilar skull fracture. No septal hematoma Eyes PERRL and EOMs intact bilaterally Eyes Narrative: Scleral injection noted on left but no hyphema Neck supple Neck Narrative: No bony deformity or step-off of the cervical spine no midline pain on palpation Chest Wall palpation of chest normal Resp normal respiratory effort and clear to auscultation bilaterally Cardio regular rate and regular rhythm GI normal to inspection, nondistended, normoactive bowel sounds, non-tender, non-distended and no masses Auscultation: normoactive bowel sounds Palpation: soft Back/Spine Back/Spine Narrative: No bony deformity or step-off of the thoracic or lumbar spine no midline pain on palpation Extremity normal to inspection Neuro oriented x3 and CN's II-XII intact bilaterally Neuro Narrative: NIH Stroke scale score of 0 Sensorium / Orientation: alert Psych mental status grossly normal Skin no rashes or lesions noted Skin Narrative: Superficial abrasions with soft tissue swelling and ecchymosis along the left orbit as documented above MDM MDM MDM Narrative Medical decision making narrative: Patient presented to the ER with stable vitals and normal neurologic exam. She reported 2 episodes of breakthrough seizure over the past 5 days but also reported she is not been taking her antiseizure medications as directed. Secondary to the head trauma I elected to perform a head CT to rule out underlying skull fracture or facial fracture or brain bleed. Basic blood work was obtained as well. Imaging studies revealed no acute trauma and blood work revealed no clinically significant findings such as derangement to her sodium which could be a cause of seizure activity or . She was given a dose of Lamictal in the ER and she had no active seizure activity. Therefore at this time with stable vitals and negative work-up and no signs of trauma patient was advised to continue her Lamictal twice a day as previously directed to prevent any breakthrough seizures but at this time as she is awake and alert with stable vitals and no further seizure activity she is safe for discharge Lab Data Attestation: I reviewed the patient's lab results. Labs: Laboratory Results - last 24 hr 07/30/22 07/30/22 07/30/22 00:05 00:05 00:05 WBC 9.2 RBC 4.40 Hgb 13.6 Hct 40.5 MCV 92.0 MCH 30.9 MCHC 33.6 RDW Std Deviation 45.5 H RDW Coeff of Abiodun 13.4 Plt Count 358 MPV 9.0 Immature Gran % (Auto) 0.300 Neut % (Auto) 63.0 Lymph % (Auto) 29.2 [place] % (Auto) 5.0 Eos % (Auto) 2.0 Baso % (Auto) 0.5 Absolute Neuts (auto) 5.8 Absolute Lymphs (auto) 2.68 Nucleated RBC % 0 Sodium 140 Potassium 3.7 Chloride 108 H Carbon Dioxide 27.0 Anion Gap 5 BUN 6 L Creatinine 0.77 Estim Creat Clear Calc 109.62 Est GFR (MDRD) Af Amer 112 Est GFR (MDRD) Non-Af 93 BUN/Creatinine Ratio 7.8 L Glucose 88 Calcium 9.0 Serum , Qual NEGATIVE Radiography Diagnostic Testing: Clinical Impression(s) from Imaging Studies Brain CT 07/30/22 23:50 IMPRESSION: No acute intracranial abnormality. Mild left cheek soft tissue contusion. Mild chronic sinusitis. Electronically Signed: Britta Zamora MD at 1:20 EST , Discharge Plan Triage Chief Complaint: Seizure ED Provider: Charbel Zavala Dx/Rx/DC Orders Clinical Impression: Breakthrough seizure, Noncompliance with medications, Closed head injury Instructions: ED Seizure, Recurrent (Adult) Prescriptions: New lamotrigine [Lamictal] 25 mg tablet 50 mg PO BID 30 Days Qty: 120 2RF No Action lamotrigine [Lamictal] 200 mg Tablet 250 mg PO BID promethazine 12.5 mg Tablet 12.5 mg PO Q6H PRN (Reason: Nausea) methylergonovine [Methergine] 0.2 mg tablet 0.2 mg PO TID 7 Days Qty: 20 0RF promethazine-codeine 6.25-10 mg/5 mL syrup 5 ml PO 4X/DAY PRN PRN (Reason: cough) 7 Days Qty: 140 0RF azelastine 137 mcg (0.1 %) aerosol,spray 2 spray intranasal BID Qty: 30 0RF Rx Instructions: administer into each nostril ibuprofen 600 mg tablet 600 mg PO 4X/DAY PRN PRN (Reason: fever or pain) Qty: 40 0RF Primary Care Provider: Care Physician,No Primary Referrals: Fast,Myra, DO [Med Staff - Land Conservation Specialist] - Care Physician,No Primary [Primary Care Provider] - Activity Restrictions/Additional Instructions: Please continue to take your Lamictal twice a day as previously directed to prevent any breakthrough seizures and return to the ER should you have any further concerns Disposition Disposition: Home, Self Care
[2022-07-30] VITALS: BP 122/86; PULSE 83; RESP 15; O2SAT 99
[2022-07-30 00:14] LABS: Absolute Lymphocyte Count 2.68 X10^3/uL (0.83-4.51); Absolute Neutrophil Count 5.8 X10^3/uL (2.0-7.7); Basophil# 0.05 X10^3/uL; Basophil% 0.5 % (0-1); Eosinophil# 0.18 X10^3/uL; Hematocrit 40.5 % (37-47); Hemoglobin 13.6 g/dL (12.0-15.0); Lymphocyte # 2.68 X10^3/ul (0.83-4.51); Lymphocyte % 29.2 % (19-41); Mean Corp Hgb Conc 33.6 g/dL (32-36); Mean Corpuscular Hgb 30.9 pg (27.0-32.0); Monocyte# 0.46 X10^3/uL; NRBC Flagged by Analyzer 0 % (0-5); Neutrophil # 5.79 X10^3/uL (2.7-7.7); Platelet Count 358 K/mm3 (150-450); RBC Distribution Width CV 13.4 % (11.6-14.6); RBC Distribution Width SD 45.5 fl (35.1-43.9); White Blood Count 9.2 K/mm3 (4.4-11.0)
[2022-07-30] MEDS: lamoTRIgine 100 MG Tablet 250 MG PO (00:30)
[2022-07-30 00:37] LABS: Anion Gap 5 (5-15); BUN 6 mg/dL (7-18); BUN/Creat Ratio 7.8 RATIO (10-20); Chloride 108 mmol/L (98-107); Creatinine, Serum 0.77 mg/dL (0.55-1.02); EST Glomerular Filtration Rate 93 mL/min (>60); Est Glom Filt Rate - Afr Amer 112 mL/min (>60); Estimated Creatinine Clearance 109.62 ml/min; Glucose 88 mg/dL (74-106); Potassium 3.7 mmol/L (3.5-5.1); Sodium Level 140 mmol/L (136-145)
[2022-07-30 00:41] LABS: Internal QC Validated? YES +Cl - CLEAR BKGD; Pregnancy, Serum, hCG Quali. NEGATIVE Negative
[2022-07-30 01:44] VITALS: BP 122/86; PULSE 83; RESP 15; O2SAT 99
--- NOTE | 2022-07-30 02:31 | ED.RN ---
INFORMED BY LAB THAT THE LAMOTROGINE TEST IS A SEND OUT AND WILL NOT RESULT FOR A FEW DAYS.
--- NOTE | 2022-07-30 23:50 | CT_ITS ---
EXAM: CT HEAD WITHOUT INTRAVENOUS CONTRAST CLINICAL INDICATION: head injury TECHNIQUE: Multiple axial images were obtained of the head without intravenous contrast. This CT exam was performed using one or more of the following dose reduction techniques: automated exposure control, adjustment of the mA and/or kV according to patient size, and/or use of iterative reconstruction technique. This report was created using [employer] report generation technology. RADIATION DOSE: CTDIvol = 44.99 mGy, DLP = 796.11 mGy-cm COMPARISON: December 03, 2021. FINDINGS: BRAIN AND EXTRA-AXIAL SPACES: Unremarkable. No intra- or extra-axial hemorrhage. No evidence of acute infarct. No intracranial mass or mass effect. There is preservation of the edward/white matter interface. Posterior fossa structures are unremarkable. Ventricles are appropriate for age. No hydrocephalus. Basal cisterns are patent. BONES/JOINTS: Unremarkable. No discrete lytic or blastic abnormalities. SOFT TISSUES: Mild soft tissue swelling and stranding in the left cheek, the underlying left zygomatic arch and almost completely included left maxillary sinus and orbit appear intact. SINUSES: Mild mucosal thickening in the left maxillary sinus, multiple anterior ethmoid air cells, slight mucosal thickening in the floors of the sphenoid sinuses, left frontoethmoidal recess and left frontal sinus. MASTOID AIR CELLS: Unremarkable. Clear. ORBITS: Visualized globes, extraocular muscles, optic nerves and retrobulbar fat appear unremarkable. CT/Brain/Head without Contrast IMPRESSION: No acute intracranial abnormality. Mild left cheek soft tissue contusion. Mild chronic sinusitis. Electronically Signed: Britta Zamora MD at 1:20 EST ,
[2022-08-06 21:40] LABS: Lamotrigine (Lamictal) Level 3.2 ug/mL (2.0-20.0)
== END 2022-07-30 02:00 | disposition home or self-care (01) ==
PROVIDERS: Emergency Provider Emergency Medicine; Visit Provider Emergency Medicine
DX: R56.9 Unspecified convulsions (principal); S00.83XA Contusion of other part of head, initial encounter; F17.210 Nicotine dependence, cigarettes, uncomplicated; Z91.14 Patient's other noncompliance with medication regimen; Z53.21 Procedure and treatment not carried out due to patient leaving prior to being seen by health care provider; W19.XXXA Unspecified fall, initial encounter
CPT/HCPCS: 70450; 80048; 82542; 84703; 85025; 99281; 99283; A4216

== ENCOUNTER → 2022-12-18 | Outpatient (CLI) | payer MEDICAID, SELFPAY ==
[2022-12-25 13:09] LABS: HPV APTIMA, High Risk Negative (Negative)
== END | disposition home or self-care (01) ==
LOC: WOBLAB 11:28
PROVIDERS: Visit Provider Obstetrics & Gynecology
DX: E28.2 Polycystic ovarian syndrome (principal)
CPT/HCPCS: 87624; 88175; G0145

== ENCOUNTER 2023-01-18 15:41 | Emergency (ER) | payer MEDICAID, SELFPAY ==
[2023-01-18 15:42] VITALS: BP 120/77; PULSE 110; RESP 20; TEMP 36.3; O2SAT 99; BMI 28.2
--- NOTE | 2023-01-18 16:22 | EX.ED.DYSGE1 ---
HPI History of Present Illness Chief Complaint: Seizure Informant: patient and EMS Narrative Narrative: Patient is a 32-year-old female with history of epilepsy presenting after reported seizure activity. Patient states she does not recall what happened. She states she was in her car getting ready to go into work and I think she knows she had people hovering over her told her she had a seizure. Patient states that she feels fine and does not feel as tired and postictal as she normally does. She denies feeling like she bit her tongue. She does not report any urinary incontinence. States she just wants to get back to work. She has not missed any of her doses of her antiepileptic. Patient takes Lamictal. Denies any ill feeling. States has been in normal state of health lately. She follows with neurology in [place]. No other complaints or concerns at this time. [facility] Medical History Chlamydia Depression History of drug abuse History of pre-term labor History of substance abuse Seizure disorder Smoking addiction Vaginal delivery Home Medications lamotrigine 200 mg tablet (Lamictal) 700 mg PO DAILY 06/04/21 [History Last Taken 06/09/22 08:30] azelastine 137 mcg (0.1 %) nasal spray aerosol 2 spray intranasal BID PRN Seizures 01/18/23 [History Last Taken Unknown] Allergy/AdvReac Type Severity Reaction Status Date / Time tomato AdvReac Vomiting Verified 01/18/23 15:42 Family History Other Alcohol abuse Arthritis Depression Seizures Social History Smoking Status: Current every day smoker tobacco type: cigarettes alcohol intake: current alcohol intake frequency: a few times a week details: Hx of alcohol abuse substance use type: does not use, former substance user Date of last use: 2010 , opiates, painkillers and methamphetamine what type of physical activity do you participate in: walking frequency: daily ROS ROS ED Constitutional Constitutional ED: Denies chills or fever(s) Cardiovascular Cardiovascular: Denies chest pain Respiratory/Chest Respiratory/Chest: Denies cough or dyspnea Gastrointestinal Gastrointestinal: Denies nausea or vomiting Musculoskeletal Musculoskeletal: Denies arthralgias or myalgias Integumentary Denies Abrasions or rash Neurologic Neurologic: Reports other Details: Reported seizure activity ; Denies headache(s) Psychiatric Psychiatric: Denies anxiety Hematologic/Lymphatic Hematologic/Lymphatic: Denies easy bleeding or easy bruising EXAM Physical Exam Const Vital Signs: 01/18/23 15:42 Temperature 97.4 F L Temperature Source Temporal Pulse Rate 110 H Respiratory Rate 20 H Blood Pressure 120/77 Blood Pressure Mean 91 Pulse Ox 99 Oxygen Delivery Method Room Air Positive well nourished and well developed General Appearance ED: well developed and NAD HEENT Reports TM's clear and moist mucous membranes HEENT Narrative: No tongue lacerations appreciated Negative for trauma Tympanic Membrane ED: Yes TM's clear Eyes PERRL and EOMs intact bilaterally Neck supple and no JVD Chest Wall inspection of chest normal and palpation of chest normal Resp normal respiratory effort Cardio regular rate, regular rhythm and no murmurs GI non-tender and non-distended Back/Spine Cervical Spine: Negative for cervical spine tenderness Extremity normal to inspection General Extremety ED: Negative for edema or tenderness General Extremity: Negative for edema Neuro oriented x3, CN's II-XII intact bilaterally and no sensory deficits noted Sensorium / Orientation: alert Motor Exam: strength 5/5 throughout; Negative for general weakness Psych mental status grossly normal Skin no rashes or lesions noted and no wounds MDM MDM MDM Narrative Medical decision making narrative: Patient's evaluated for reported seizure. EMS report independently reviewed. Patient was tachycardic on scene and at baseline. They did not observe any seizure activity. Patient's had been dropping her off and reportedly patient 4 to 5 minutes of generalized tonic-clonic activity. Patient told EMS as well that she did not have her normal postictal period. Patient currently has normal vital signs. She is well-appearing. She has no complaints. I did discuss that given she did plan with her medications we could check lab work looking for electrolyte abnormalities or other imbalances that could have triggered her seizure. Patient would like to defer this at this time. She states she will call her neurologist for further recommendations. Her last seizure was in July. She is counseled if she develops fever, increased seizure activity or other concerns she should return to the emergency room. Patient verbalized agreement understand this plan. Discharged home in stable condition. 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 I feel that it safe for her to return to work. Discharge Plan Triage Chief Complaint: Seizure ED Provider: Adrienne Esquivel Dx/Rx/DC Orders Clinical Impression: Breakthrough seizure Instructions: ED Seizure, Recurrent (Adult) Prescriptions: No Action lamotrigine [Lamictal] 200 mg Tablet 700 mg PO DAILY azelastine 137 mcg (0.1 %) aerosol,spray 2 spray intranasal BID PRN (Reason: Seizures) Rx Instructions: administer into each nostril Stand Alone Forms: ED Work / School Excuse Primary Care Provider: Care Physician,No Primary Referrals: Care Physician,No Primary [Primary Care Provider] - Activity Restrictions/Additional Instructions: Please contact your neurologist today or tomorrow to let them know that you had a breakthrough seizure. If you have further seizure activity or other concerns please return to the emergency room. Disposition Disposition: Home, Self Care
[2023-01-18 16:41] VITALS: BP 117/68; PULSE 76; RESP 18; TEMP 36.7; O2SAT 98
== END 2023-01-18 16:44 | disposition home or self-care (01) ==
PROVIDERS: Emergency Provider Emergency Medicine; Visit Provider Emergency Medicine
DX: R56.9 Unspecified convulsions (principal); F17.210 Nicotine dependence, cigarettes, uncomplicated
CPT/HCPCS: 99284

== ENCOUNTER 2023-02-14 12:43 | Emergency (ER) | payer MEDICAID, SELFPAY ==
[2023-02-14 12:43] VITALS: BP 123/73; PULSE 92; RESP 18; TEMP 35.8; O2SAT 100
[2023-02-14 12:48] VITALS: BMI 26.6
--- NOTE | 2023-02-14 13:08 | EX.ED.DYSGE1 ---
HPI <OBEY Talbert - Last Filed: 02/14/23 13:55> History of Present Illness Chief Complaint: Dental Narrative Narrative: Patient presenting today with left lower jaw dental pain that she has had since Wednesday. She does not have a dentist at this time. PMH includes epilepsy. She denies any fever, chills. PFSH <OBEY Talbert - Last Filed: 02/14/23 13:55> PFSH Medical History Chlamydia Depression History of drug abuse History of pre-term labor History of substance abuse Seizure disorder Smoking addiction Vaginal delivery Home Medications lamotrigine 200 mg tablet (Lamictal) 700 mg PO DAILY 06/04/21 [History Last Taken 06/09/22 08:30] azelastine 137 mcg (0.1 %) nasal spray aerosol 2 spray intranasal BID PRN Seizures 01/18/23 [History Last Taken Unknown] penicillin V potassium 500 mg tablet 500 mg PO 4X/DAY #39 tabs 02/14/23 [Rx Last Taken Unknown] Allergy/AdvReac Type Severity Reaction Status Date / Time tomato AdvReac Vomiting Verified 01/18/23 15:42 Family History Other Alcohol abuse Arthritis Depression Seizures Social History Smoking Status: Current every day smoker tobacco type: cigarettes alcohol intake: current alcohol intake frequency: a few times a week details: Hx of alcohol abuse substance use type: does not use, former substance user Date of last use: 2010 , opiates, painkillers and methamphetamine what type of physical activity do you participate in: walking frequency: daily ROS <OBEY Talbert - Last Filed: 02/14/23 13:55> ROS ED Constitutional Constitutional ED: Denies chills or fever(s) Cardiovascular Cardiovascular: Denies chest pain Respiratory/Chest Respiratory/Chest: Denies cough or dyspnea Gastrointestinal Gastrointestinal: Denies abdominal pain, nausea or vomiting Musculoskeletal Musculoskeletal: Denies arthralgias or myalgias Integumentary Denies abscess or rash Neurologic Neurologic: Denies weakness Allergic/Immunologic Allergic/Immunologic ED: Denies mouth swelling or tongue swelling EXAM <OBEY Talbert - Last Filed: 02/14/23 13:55> Physical Exam Const Vital Signs: 02/14/23 12:43 Temperature 96.4 F L Temperature Source Temporal Pulse Rate 92 Respiratory Rate 18 Blood Pressure 123/73 H Blood Pressure Mean 89 Pulse Ox 100 Oxygen Delivery Method Room Air Positive well nourished, well developed and no apparent distress General Appearance ED: well developed HEENT Reports normocephalic and head/scalp atraumatic HEENT Narrative: No trismus, uvula midline, no drooling, no stridor, no dysphonia, multiple dental caries, several missing teeth, pain to the left mandibular second molar. No signs of dental abscess. Mouth ED: Yes moist mucous membranes normal Eyes PERRL and EOMs intact bilaterally Neck full ROM and supple Chest Wall inspection of chest normal Resp normal respiratory effort and clear to auscultation bilaterally Cardio regular rate and regular rhythm GI soft to palpation, non-tender, non-distended and no masses Back/Spine normal ROM and normal to inspection Extremity normal to inspection and full ROM Neuro oriented x3, CN's II-XII intact bilaterally, moves all extremities, no focal motor deficits and no sensory deficits noted Sensorium / Orientation: awake and alert Psych mental status grossly normal and thought process normal Skin no rashes or lesions noted and no wounds <Dr. Kyle Victor, - Last Filed: 02/14/23 15:17> Physical Exam Const Vital Signs: 02/14/23 12:43 Temperature 96.4 F L Temperature Source Temporal Pulse Rate 92 Respiratory Rate 18 Blood Pressure 123/73 H Blood Pressure Mean 89 Pulse Ox 100 Oxygen Delivery Method Room Air MDM <OBEY Talbert - Last Filed: 02/14/23 13:55> [facility] Narrative Medical decision making narrative: Patient presenting due to dental pain to her left mandibular first molar that she has had since Wednesday. She is well-appearing and in no acute distress, vitals are unremarkable. Patient has overall poor dentition with multiple dental caries and several missing teeth. She does not have a dentist. On examination there is no dental abscess, uvula is midline, no drooling, no trismus, tolerating secretions, no evidence of Ludewig's angina. She will be started on penicillin with first dose here. She has been given a dental referral sheet and is to follow-up with a dentist as soon as she is able to. She has been given return instructions will be discharged home in stable condition. She is comfortable plan. <Dr. Kyle Victor, DO - Last Filed: 02/14/23 15:17> [facility] Narrative Medical decision making narrative: Patient presenting due to dental pain to her left mandibular first molar that she has had since Wednesday. She is well-appearing and in no acute distress, vitals are unremarkable. Patient has overall poor dentition with multiple dental caries and several missing teeth. She does not have a dentist. On examination there is no dental abscess, uvula is midline, no drooling, no trismus, tolerating secretions, no evidence of Ludewig's angina. She will be started on penicillin with first dose here. She has been given a dental referral sheet and is to follow-up with a dentist as soon as she is able to. She has been given return instructions will be discharged home in stable condition. She is comfortable plan. This patient was seen with a PA/[employer] MAN Individually assessed they patient including history and physical. I have reviewed everything on the chart that is available and agree with the documentation provided by the PA/[employer] MAN including discussion about the assessment, treatment plan, discussion, and return precautions. Patient with dental pain. No red flags. She started on penicillin. Return precautions were discussed. She was given dental referral sheet. Discharge Plan Triage Chief Complaint: Dental ED Midlevel Provider: Angelica Baldwin ED Provider: Kyle Victor Dx/Rx/DC Orders Clinical Impression: Dental caries, Pain, dental Instructions: ED Dental Pain Prescriptions: New penicillin V potassium 500 mg tablet 500 mg PO 4X/DAY Qty: 39 0RF No Action lamotrigine [Lamictal] 200 mg Tablet 700 mg PO DAILY azelastine 137 mcg (0.1 %) aerosol,spray 2 spray intranasal BID PRN (Reason: Seizures) Rx Instructions: administer into each nostril Primary Care Provider: Care Physician,No Primary Referrals: Care Physician,No Primary [Primary Care Provider] - Activity Restrictions/Additional Instructions: Please call around tomorrow to the dentists on the dental referral sheet I have given you to make an appointment to be seen. Take antibiotics as directed and return for any worsening of your symptoms. You can alternate Tylenol and ibuprofen for your pain as well. Disposition Disposition: Home, Self Care Discharge Date/Time: 02/14/23 14:01
[2023-02-14] MEDS: Penicillin Vk 250 MG Tablet 500 MG PO (13:19)
== END 2023-02-14 14:01 | disposition home or self-care (01) ==
LOC: ED 13:10
PROVIDERS: Emergency Provider Student in an Organized Health Care Education/Training Program; Visit Provider Student in an Organized Health Care Education/Training Program
DX: K02.9 Dental caries, unspecified (principal); K08.89 Other specified disorders of teeth and supporting structures; F17.210 Nicotine dependence, cigarettes, uncomplicated
CPT/HCPCS: 99282

== ENCOUNTER 2023-02-21 00:16 | Emergency (ER) | payer MEDICAID, SELFPAY ==
[2023-02-21 00:21] VITALS: BP 128/78; PULSE 106; RESP 16; TEMP 36.6; O2SAT 97; BMI 28.2
[2023-02-21 00:26] VITALS: BP 128/78; PULSE 106; RESP 16; TEMP 36.6; O2SAT 97
[2023-02-21] MEDS: LORazepam 1 MG Tablet PO (00:54)
--- NOTE | 2023-02-21 01:00 | EDS_ITS ---
HPI History of Present Illness Chief Complaint: Anxiety Narrative Narrative: Patient presents with stress and anxiety attack. There is question of seizures but patient states she does not think she had a seizure. She has a history of them and is taking her Lamictal. She states normally when she has a seizure she is confused for a while and other people tell her she had a seizure. Tonight she got stressed. She is living at [address] since October. She was at [facility]. She was feeling very stressed and anxious. She thinks she had a panic attack. She stayed awake and alert. She remembers the event. She was standing the whole time. She was not confused after. She just feels overwhelmed now. But she is not suicidal or homicidal. She does have a history of depression and does feel mildly depressed. Mostly she feels overwhelmed with too many things going on in her life. [facility] Medical History Chlamydia Depression History of drug abuse History of pre-term labor History of substance abuse Seizure disorder Smoking addiction Vaginal delivery Home Medications lamotrigine 200 mg tablet (Lamictal) 700 mg PO DAILY 06/04/21 [History Last Taken 06/09/22 08:30] azelastine 137 mcg (0.1 %) nasal spray aerosol 2 spray intranasal BID PRN Seizures 01/18/23 [History Last Taken Unknown] penicillin V potassium 500 mg tablet 500 mg PO 4X/DAY #39 tabs 02/14/23 [Rx Last Taken Unknown] hydroxyzine pamoate 25 mg capsule 50 mg (2 x 25 mg) PO TID PRN PRN Anxiety #20 CAPSULES 02/21/23 [Rx Last Taken Unknown] Allergy/AdvReac Type Severity Reaction Status Date / Time tomato AdvReac Vomiting Verified 01/18/23 15:42 Family History Other Alcohol abuse Arthritis Depression Seizures Social History Smoking Status: Current every day smoker tobacco type: cigarettes alcohol intake: current alcohol intake frequency: a few times a week details: Hx of alcohol abuse substance use type: does not use, former substance user Date of last use: 2011 , opiates, painkillers and methamphetamine what type of physical activity do you participate in: walking frequency: daily ROS ROS ED Constitutional Constitutional ED: Denies chills or fever(s) Eyes Eyes: Denies change in vision ENT ENT ED: Denies sore throat Cardiovascular Cardiovascular: Denies chest pain or palpitations Respiratory/Chest Respiratory/Chest: Denies cough Gastrointestinal Gastrointestinal: Denies diarrhea, nausea or vomiting Musculoskeletal Musculoskeletal: Denies myalgias Integumentary Denies rash Neurologic Neurologic: Denies headache(s), paresthesias or weakness Psychiatric Psychiatric: Reports anxiety and depression; Denies suicidal ideation or suicidal thoughts Hematologic/Lymphatic Hematologic/Lymphatic: Denies anemia Allergic/Immunologic Allergic/Immunologic ED: Denies urticaria EXAM Physical Exam Narrative Exam Narrative: Patient awake alert sitting in bed. She is holding a blanket to her face crying. HEENT shows no trauma. Mucous membranes are moist. Eyes show normal pupillary response. No limitation of range of motion. Neck is supple. No stridor or JVD or meningismus. Heart is regular borderline tachycardic at about 100. I hear no murmur. Distal pulses are normal. Lungs are completely clear bilaterally and saturations are normal at 97% on room air showing no hypoxia. Abdomen is soft and nontender. Extremities show no trauma swelling or tenderness. Skin shows no rash or pallor. No diaphoresis. Neurologically she is awake alert normal range of motion and sensation. Psychiatry: She does feel stressed. She states she is very anxious. She denies suicidal thoughts. She has no flight of ideas. She is cooperative. Const Vital Signs: 02/21/23 00:21 02/21/23 00:26 Temperature 97.8 F 97.8 F Temperature Source Oral Oral Pulse Rate 106 H 106 H Respiratory Rate 16 16 Blood Pressure 128/78 H 128/78 H Blood Pressure Mean 94 94 Pulse Ox 97 97 Oxygen Delivery Method Room Air Room Air MDM MDM MDM Narrative Medical decision making narrative: Patient calmed down significantly with Ativan. She is back to baseline. Not suicidal homicidal. No flight of ideas. I think we can get her home/to [address]. She is under a lot of stress but does not need admission at this time. I will write for some hydroxyzine as an option. Discharge Plan Triage Chief Complaint: Anxiety ED Provider: Mati Prieto Dx/Rx/DC Orders Clinical Impression: History of seizures, Panic attack Instructions: ED Anxiety Reaction Prescriptions: New hydroxyzine pamoate [hydroxyzine pamoate] 25 mg capsule 50 mg PO TID PRN PRN (Reason: Anxiety) Qty: 20 0RF No Action lamotrigine [Lamictal] 200 mg Tablet 700 mg PO DAILY azelastine 137 mcg (0.1 %) aerosol,spray 2 spray intranasal BID PRN (Reason: Seizures) Rx Instructions: administer into each nostril penicillin V potassium 500 mg tablet 500 mg PO 4X/DAY Qty: 39 0RF Primary Care Provider: Care Physician,No Primary Referrals: Inez Juarez DO [Med Staff - [employer]] - 3-5 Days if not improving Care Physician,No Primary [Primary Care Provider] - Disposition Disposition: Home, Self Care
== END 2023-02-21 02:15 | disposition home or self-care (01) ==
PROVIDERS: Emergency Provider Emergency Medicine; Visit Provider Emergency Medicine
DX: F41.0 Panic disorder [episodic paroxysmal anxiety] (principal); F17.210 Nicotine dependence, cigarettes, uncomplicated
CPT/HCPCS: 99284

== ENCOUNTER 2023-03-25 20:02 | Emergency (ER) | payer MEDICAID, SELFPAY ==
[2023-03-25] VITALS (7 sets, daily range): BP systolic 93–131; BP diastolic 50–88; PULSE 70–101; RESP 13–23; TEMP 36.3; O2SAT 95–100; BMI 27.6
--- NOTE | 2023-03-25 20:06 | CT_ITS ---
STUDY: CTA HEAD AND NECK WITH CONTRAST REASON FOR EXAM: Female, 32 years old. Neuro deficit, acute, stroke suspected RADIATION DOSAGE (If Supplied By Facility): CTDIvol = ( 19.26 ) mGy, DLP = ( 675.25 ) mGycm TECHNIQUE: CT angiography was performed with a multi-detector CT scanner. Data acquisition was obtained from the skull base through the vertex following intravenous administration of IV 100mL [id number]-[id number]. MIP images were reconstructed from the axial data set. Post-processing of the angiographic images was performed, with multiplanar reformation and 3D reconstruction. Individualized dose optimization techniques were used for this CT. COMPARISON: No relevant priors. FINDINGS: Normal bilateral petrous carotid arteries. Normal right cavernous carotid artery with a normal supraclinoid bifurcation. Normal left cavernous carotid artery with a normal supraclinoid bifurcation. Normal right A1 segments of the anterior cerebral artery. Normal left A1 segments of the anterior cerebral artery. Normal intact anterior communicating artery (ACOM). Normal bilateral A2 segments of the anterior cerebral arteries. Normal right M1 and M2 segments of the middle cerebral arteries, with a normal M1 bifurcation. Normal left M1 and M2 segments of the middle cerebral arteries, with a normal M1 bifurcation. Normal right posterior communicating artery (PCOM). Normal left posterior communicating artery (PCOM). Normal bilateral vertebral arteries. Normal basilar artery with a normal basilar bifurcation. The visualized bilateral superior cerebellar (SCA) arteries are normal. Normal bilateral P1, P2 and visualized P3 segments of the posterior cerebral arteries. There is no demonstrated aneurysm of the [place]. There is no demonstrated abnormality of the visualized brain. AORTIC ARCH: There is a bovine origin of the great vessels arising from the aortic arch with a common origin of the brachiocephalic and left common carotid artery. Normal origin of the left subclavian artery. Normal origins of the brachiocephalic, left common carotid, and left subclavian arteries. RIGHT CAROTID ARTERIES: Normal right common carotid artery (CCA). Normal right common carotid bulb. Normal origin of the right internal carotid (ICA) artery without a hemodynamically significant stenosis. Normal visualized cervical portion of the right internal carotid artery. Normal origin of the right external carotid artery (ECA). LEFT CAROTID ARTERIES: Normal left common carotid artery (CCA). Normal left common carotid bulb. Normal origin of the left internal carotid (ICA) artery without a hemodynamically significant stenosis. Normal visualized cervical portion of the left internal carotid artery. Normal origin of the left external carotid artery (ECA). VERTEBRAL ARTERIES: Normal bilateral vertebral arteries. CT/STROKE CTA Head AND Neck W/Con IMPRESSION: Normal CTA Head and neck with contrast. N.B. : The above Results were Read Back by Iftikhar Adan MD to Adrienne Carolaquita and understanding confirmed on 03/25/2023 20:52:30 (ET). Electronically Signed: Iftikhar Adan MD at 20:53 EDT ,
--- NOTE | 2023-03-25 20:06 | CT_ITS ---
INDICATION: Neuro deficit, acute, stroke suspected EXAMINATION: CT BRAIN - CT Head Stroke Protocol W/O Contrast Injection TECHNIQUE: Multiple axial images were obtained of the head without intravenous contrast. A radiation dose optimization technique was used for this scan. IV Contrast dosage and agent: None. RADIATION DOSAGE (If Supplied By Facility): CTDIvol = ( ) mGy, DLP = ( ) mGycm COMPARISON: 07/30/2022 FINDINGS: BRAIN PARENCHYMA: No intra- or extra-axial hemorrhage. No evidence of acute infarct. No intracranial mass or mass effect. There is preservation of the edward/white matter interface. Posterior fossa structures are unremarkable. CSF SPACES: Appropriate for age. No hydrocephalus. Basal cisterns are patent. CALVARIUM, SKULL BASE, PARANASAL SINUSES AND MASTOID AIR CELLS: Clear. No discrete lytic or blastic abnormalities. ORBITS: Both globes, extraocular muscles, optic nerves and retrobulbar fat appear unremarkable. ASPECTS Score for Acute Strokes: 10 CT/STROKE Brain/Head without Cont IMPRESSION: Negative Brain CT without contrast. N.B. : The above Results were Read Back by Iftikhar Adan MD to Adrienne Esquivel and understanding confirmed on 03/25/2023 20:30:32 (ET). Electronically Signed: Iftikhar Adan MD at 20:31 EDT ,
--- NOTE | 2023-03-25 20:06 | EKG12_ITS ---
Test Reason : STROKE ALERT Blood Pressure : / mmHG Vent. Rate : 099 BPM Atrial Rate : 099 BPM P-R Int : 138 ms QRS Dur : 090 ms QT Int : 352 ms P-R-T Axes : 045 071 010 degrees QTc Int : 451 ms Sinus rhythm with Premature atrial complexes with Aberrant conduction Otherwise normal ECG Confirmed by OSCAR ORTIZ ([id number]), editor producer FILIPPO GUEVARA ([id number]) on 04/08/2023 11:33:09 AM Referred By: Confirmed By:OSCAR ORTIZ
--- NOTE | 2023-03-25 20:08 | ED.VIS.STROK ---
HPI History of Present Illness Chief Complaint: Stroke Alert Informant: patient Narrative Narrative: Patient is a 32-year-old female with history of epilepsy on Lamictal presenting with altered mental status and concern for strokelike activity. Initially reported last known well at 6:30 PM. Patient is reporting feeling tingly all over, slurred speech and right facial droop. She denies any alcohol or drug use. She denies any seizure activity. She denies any new medications or medication changes. She is 9 months and does not think she is . I spoke to the on the phone who is in the car with their child. He states that he spoke to her during her break just after 6 and talked her for couple minutes. She seemed normal. She went to use the restroom when she came back from her bathroom break she called her back at 610. At that time she said she did not feel right, felt weak and her vision was changed. He called her at 6:15 to tell her that he was on the way to pick her up and she sounded tired at that time. When they were driving here she started to slurred, falling asleep eating as driving to ER at 6:35. also mentions that about 2 weeks ago she was seen at [facility] ER for a boil on left butt cheek. Lanced 2weeks ago/packed, follow up today or tomorrow? He has not seen it since does know what it looks like. Homeless currently, living with a friend. [facility] Medical History Chlamydia Depression History of drug abuse History of pre-term labor History of substance abuse Seizure disorder Smoking addiction Vaginal delivery Home Medications lamotrigine 200 mg tablet (Lamictal) 700 mg PO DAILY 06/04/21 [History Last Taken 06/09/22 08:30] Allergy/AdvReac Type Severity Reaction Status Date / Time tomato AdvReac Vomiting Verified 03/25/23 23:07 Family History Other Alcohol abuse Arthritis Depression Seizures Surgical History no surgical history Social History Smoking Status: Current every day smoker tobacco type: cigarettes alcohol intake: current alcohol intake frequency: a few times a week details: Hx of alcohol abuse substance use type: does not use, former substance user Date of last use: 2011 , opiates, painkillers and methamphetamine what type of physical activity do you participate in: walking frequency: daily ROS ROS ED Constitutional Constitutional ED: Denies chills or fever(s) Eyes Eyes: Reports blurry vision Gastrointestinal Gastrointestinal: Denies abdominal pain or nausea Integumentary Denies rash Neurologic Neurologic: Reports paresthesias, weakness and other Details: Slurred speech ; Denies headache(s) Hematologic/Lymphatic Hematologic/Lymphatic: Denies easy bleeding or easy bruising EXAM Physical Exam Const Vital Signs: 03/25/23 20:04 03/25/23 20:18 03/25/23 20:18 Temperature 97.3 F L Temperature Source Temporal Pulse Rate 96 Respiratory Rate 23 H Blood Pressure 131/70 H Blood Pressure Mean 90 Pulse Ox 97 Oxygen Delivery Method Room Air Room Air Oxygen Flow Rate (L/min) 03/25/23 20:18 03/25/23 20:51 03/25/23 21:11 Temperature Temperature Source Pulse Rate 101 H 70 86 Respiratory Rate 23 H 15 14 Blood Pressure 131/70 H 113/88 H 105/60 Blood Pressure Mean 90 96 75 Pulse Ox 97 100 98 Oxygen Delivery Method Room Air Room Air Room Air Oxygen Flow Rate (L/min) 03/25/23 21:47 03/25/23 22:24 03/25/23 23:17 Temperature Temperature Source Pulse Rate 99 84 80 Respiratory Rate 13 16 13 Blood Pressure 93/50 L 110/66 104/64 Blood Pressure Mean 64 80 77 Pulse Ox 100 95 100 Oxygen Delivery Method Room Air Room Air Room Air Oxygen Flow Rate (L/min) 03/26/23 00:04 03/26/23 00:50 Temperature Temperature Source Pulse Rate 83 118 H Respiratory Rate 20 H 23 H Blood Pressure 103/55 L 107/55 L Blood Pressure Mean 71 72 Pulse Ox 99 100 Oxygen Delivery Method Room Air Nasal Cannula Oxygen Flow Rate (L/min) 2 Positive well nourished and well developed General Appearance ED: well developed and NAD HEENT Reports dry mucous membranes Mouth ED: Yes dry mucous membranes Mouth: dry mucous membranes Eyes PERRL and EOMs intact bilaterally Eyes Narrative: Mild conjunctival injection, no significant nystagmus or visual field cuts. Pupils 3 mm bilaterally Neck supple Chest Wall inspection of chest normal Resp normal respiratory effort and clear to auscultation bilaterally Cardio no murmurs Rhythm: regular rhythm GI normal to inspection, nondistended, normoactive bowel sounds Extremity normal to inspection General Extremety ED: Negative for deformity or edema General Extremity: Negative for deformity or edema Neuro oriented x3 Neuro Narrative: Slightly slurred speech, very subtle facial droop on the right. NIH equals 2 for speech changes and facial droop [place] Coma Scale: document GCS findings Spontaneous Obeys Commands Oriented 15 Sensorium / Orientation: alert Psych Psych Narrative: Somnolent but answers questions appropriately NIHSS NIHSS Initial: 1a Level of Consciousness: 0 1b LOC Questions (Score 2 if aphasic/stupor): 0 1c LOC Commands (Only score 1st attempt): 0 2 Best Gaze (If aphasic, use reflexive mvmts.): 0 3 Visual: 0 4 Facial Palsy: 1 5 Motor Arm Right (UN = amputation/fusion): 0 5 Motor Arm Left: 0 6 Motor Leg Right: 0 6 Motor Leg Left: 0 7 Limb ataxia (Only + if out of proportion): 0 8 Sensory (Aphasia/stupor=0 or 1, coma=2): 0 9 Best Language: 0 10 Dysarthria (mute, coma=2, intubated=UN): 1 11 Extinction and Inattention (only scored if +): 0 Total Score: 2 MDM MDM MDM Narrative Medical decision making narrative: Patient is evaluated for weakness, slurred speech and questionable facial droop. Her symptoms seem to be waxing and waning however stroke alert is called in triage. NIH of maximum is 2 however as I said it does wax and wane. CT of the brain as well as CTA of the head and neck did not show any acute process to explain her presentation. While patient was appears either intact ictal she denies any seizure activity, medication changes/noncompliance or taking anything besides her prescribed medication. She adamantly denies any alcohol or illicit drug use. Spoke with stroke neurologist from [facility], Dr. Valencia, who was low suspicion for stroke and is more concerned about either a metabolic or toxic cause of her symptoms. He does not think TNKase indicated. I am in agreement with this. Patient's work-up is otherwise largely negative. She is a very mild leukocytosis 11.6 which appears to be near her baseline and a mild anemia with a hemoglobin 11.7. Platelets are normal, CBC is normal, glucose is normal, ammonia is negative, troponin is negative and TSH is normal. Her is negative. Alcohol and urine drug screen are negative. She continues to be somnolent however she states she is feeling a little better in the ER. She does arouse and answer questions completely appropriately. She does not have any source of infection. She does not have any meningeal signs. I did recommend admission to the patient however she declined stating she does not want to stay overnight in the hospital. She does have capacity make this decision. Discussed AMA including the risk of permanent disability, her not getting better/staying like this and even potential . She verbalized agreement understanding with this. Patient states she has a neurologist, Tonja, in [place] that she can follow-up with outpatient. While in the process of getting the AMA paperwork patient started to have generalized tonic-clonic seizure activity. It lasted for about a minute. Patient will be loaded with IV Keppra. Her significant other was notified of what happened in the emergency room. Plan is to continue to observe the patient in the ER until she is no longer postictal and see if this time if she is amenable for admission. If not she can then AMA when she is has capacity again. Patient signed out to oncoming physician, Dr. Vidal for change of shift. Lab Data Attestation: I reviewed the patient's lab results. Labs: Laboratory Results - last 24 hr 03/25/23 03/25/23 03/25/23 20:00 21:53 23:24 WBC 11.6 H RBC 3.78 L Hgb 11.7 L Hct 35.3 L MCV 93.4 MCH 31.0 MCHC 33.1 RDW Std Deviation 43.7 RDW Coeff of Abiodun 12.7 Plt Count 270 MPV 9.5 Immature Gran % (Auto) 0.400 Neut % (Auto) 68.9 Lymph % (Auto) 20.9 [place] % (Auto) 7.4 Eos % (Auto) 2.0 Baso % (Auto) 0.4 Absolute Neuts (auto) 8.0 H Absolute Lymphs (auto) 2.42 Nucleated RBC % 0 PT 14.5 INR 1.1 APTT 26.0 Sodium 140 Potassium 3.7 Chloride 109 H Carbon Dioxide 27.0 Anion Gap 4 L BUN 11 Creatinine 0.76 Estim Creat Clear Calc 111.06 Est GFR (MDRD) Af Amer 114 Est GFR (MDRD) Non-Af 94 BUN/Creatinine Ratio 14.6 Glucose 96 Calcium 9.0 Magnesium 2.1 Ammonia < 10.0 L Troponin I High Sens < 3 L TSH 2.65 Serum , Qual NEGATIVE Urine Opiates Screen NEGATIVE Urine Methadone Screen NEGATIVE Ur Barbiturates Screen NEGATIVE Ur Phencyclidine Scrn NEGATIVE Ur Amphetamines Screen NEGATIVE MDMA (Ecstasy) Screen NEGATIVE U Benzodiazepines Scrn NEGATIVE Urine Cocaine Screen NEGATIVE U Cannabinoids Screen NEGATIVE Ur Drug Screen Comment Ethyl Alcohol < 3.0 ABG Data ABG results: ABG 03/25/23 23:27 Specimen Type ART Sample Site R Radial pH 7.39 Bicarbonate Actual 26.7 H Total CO2 28 Base Excess 2 O2 Saturation 97 ABG pCO2 43.7 ABG pO2 87 Иван Test Positive Radiography Diagnostic Testing: Clinical Impression(s) from Imaging Studies Brain CT 03/25/23 20:06 IMPRESSION: Negative Brain CT without contrast. N.B. : The above Results were Read Back by Iftikhar Adan MD to Adrienne Esquivel and understanding confirmed on 03/25/2023 20:30:32 (ET). Electronically Signed: Iftikhar Adan MD at 20:31 EDT , ADDENDUM: 03/25/232037 IMPRESSION: Negative Brain CT without contrast. N.B. : The above Results were Read Back by Iftikhar Adan MD to Adrienne Esquivel and understanding confirmed on 03/25/2023 20:30:32 (ET). Electronically Signed: Iftikhar Adan MD at 20:31 EDT , Head/Neck CTA 03/25/23 20:06 IMPRESSION: Normal CTA Head and neck with contrast. N.B. : The above Results were Read Back by Iftikhar Adan MD to Adrienne Esquivel and understanding confirmed on 03/25/2023 20:52:30 (ET). Electronically Signed: Iftikhar Adan MD at 20:53 EDT , ADDENDUM: 03/25/23 2100 IMPRESSION: Normal CTA Head and neck with contrast. N.B. : The above Results were Read Back by Iftikhar Adan MD to Adrienne Esquivel and understanding confirmed on 03/25/2023 20:52:30 (ET). Electronically Signed: Iftikhar Adan MD at 20:53 EDT , Chest X-Ray 03/25/23 20:55 IMPRESSION: Normal x-ray examination of the chest. Electronically Signed: Iftikhar Adan MD at 21:26 EDT , Rhythm Strip Rhythm Strip: Sinus Rhythm Rate: 99 Ectopy: PAC(s) EKG Initial EKG: Attestation: I personally reviewed and interpreted this EKG as follows: Interpretation: Sinus Rhythm Comments: Normal sinus rhythm at a rate of 99 bpm Normal axis Premature atrial complex with a [place] conduction present Normal ST segments Normal intervals Compared to prior EKG patient has PACs Prior EKG tracings: available for review Prior: Unchanged Discharge Plan Triage Chief Complaint: Stroke Alert ED Provider: Adrienne Esquivel Dx/Rx/DC Orders Clinical Impression: Episode of generalized weakness, Breakthrough seizure, Acute alteration in mental status Prescriptions: No Action lamotrigine [Lamictal] 200 mg Tablet 700 mg PO DAILY Primary Care Provider: Care Physician,No Primary Referrals: Care Physician,No Primary [Primary Care Provider] -
[2023-03-25 20:17] LABS: Absolute Lymphocyte Count 2.42 X10^3/uL (0.83-4.51); Basophil# 0.05 X10^3/uL; Basophil% 0.4 % (0-1); Eosinophil# 0.23 X10^3/uL; Hematocrit 35.3 % (37-47); Hemoglobin 11.7 g/dL (12.0-15.0); Lymphocyte # 2.42 X10^3/ul (0.83-4.51); Lymphocyte % 20.9 % (19-41); Mean Corp Hgb Conc 33.1 g/dL (32-36); Mean Corpuscular Volume 93.4 fL (81-99); Mean Platelet Vol. 9.5 fl (6.2-12.0); Monocyte# 0.86 X10^3/uL; Monocyte% 7.4 % (0-10); NRBC Flagged by Analyzer 0 % (0-5); Neutrophil # 7.99 X10^3/uL (2.7-7.7); Neutrophil % 68.9 % (47-70); Platelet Count 270 K/mm3 (150-450); RBC Distribution Width CV 12.7 % (11.6-14.6); RBC Distribution Width SD 43.7 fl (35.1-43.9); Red Blood Count 3.78 M/mm3 (4.2-5.4); White Blood Count 11.6 K/mm3 (4.4-11.0)
[2023-03-25 20:24] LABS: Internal QC Validated? YES +Cl - CLEAR BKGD; Pregnancy, Serum, hCG Quali. NEGATIVE Negative
[2023-03-25 20:28] LABS: International Normalized Ratio 1.1; Prothrombin Time (Protime)PT. 14.5 SECONDS (11.7-14.9)
[2023-03-25 20:38] LABS: Alcohol, Blood (Medical)-Serum < 3.0 mg/dL
[2023-03-25 20:48] LABS: Anion Gap 4 (5-15); BUN 11 mg/dL (7-18); BUN/Creat Ratio 14.6 RATIO (10-20); Chloride 109 mmol/L (98-107); Creatinine, Serum 0.76 mg/dL (0.55-1.02); EST Glomerular Filtration Rate 94 mL/min (>60); Est Glom Filt Rate - Afr Amer 114 mL/min (>60); Estimated Creatinine Clearance 111.06 ml/min; Glucose 96 mg/dL (74-106); Magnesium 2.1 mg/dL (1.6-2.6); Potassium 3.7 mmol/L (3.5-5.1); Sodium Level 140 mmol/L (136-145); Thyroid Stim Hormone (TSH) 2.65 uIU/mL (0.358-3.74); Troponin-I HS < 3 pg/mL (3.0-54.0)
--- NOTE | 2023-03-25 20:55 | RAD_ITS ---
STUDY: X-RAY CHEST REASON FOR EXAM: Female, 32 years old. Neuro deficit, acute, stroke suspected TECHNIQUE: Single AP portable view of the chest. COMPARISON: 06/27/2022 FINDINGS: The lungs are clear and expanded. There is no demonstrated pleural abnormality. Normal size heart. Normal mediastinum and karma. Normal visualized pulmonary arteries. Normal visualized aortic arch and descending thoracic aorta. Normal visualized thoracic spine. Normal visualized ribs, clavicles, and shoulders. There is no demonstrated abnormality of the visualized soft tissue structures of the upper abdomen. RAD/Chest 1 View IMPRESSION: Normal x-ray examination of the chest. Electronically Signed: Iftikhar Adan MD at 21:26 EDT ,
--- NOTE | 2023-03-25 21:54 | ED.RN ---
[facility]
[2023-03-25 23:12] LABS: Amphetamine Urine VISTA NEGATIVE (<1000 ng/mL); Barbiturate Urine VISTA NEGATIVE (< 200 ng/mL); Benzodiazepine Urine VISTA NEGATIVE (< 200 ng/mL); Cocaine Urine VISTA NEGATIVE (< 300 ng/mL); Ecstacy Urine VISTA NEGATIVE (< 500 ng/mL); Methadone Urine VISTA NEGATIVE (< 300 ng/mL); PCP Urine VISTA NEGATIVE (< 25 ng/mL); THC Urine VISTA NEGATIVE (< 50 ng/mL); Vista UDS pH Range 6
[2023-03-25 23:31] LABS: Allen Test Positive; Base Excess 2 mmol/L (-2 to +2); Bicarbonate 26.7 mmol/L (22-26); Blood Gas Specimen Type ART; PO2 87 mmHG (75-100); SITE R Radial; SO2 97 % (95-99); Total Carbon Dioxide 28 mmol/L; pCO2 43.7 mmHg (35-45); pH 7.39 (7.35-7.45)
--- NOTE | 2023-03-26 00:01 | PCM.HP.STD ---
HPI - General General Date of Admission: 03/26/23 Date of Service: 03/26/23 Chief Complaint: mental status change HPI Narrative DELON HAJI, is a 32 F with a significant history of epilepsy who presents to the emergency department with mental status change. Reportedly patient's symptoms started while at work. Associated with her symptoms was a dysarthria and facial droop. Because of her symptoms patient's picked her up from work to the emergency department. Reportedly in route to the hospital while patient was was attempted to eat she was found to be sleeping. Strokealert was called on arrival to the ED. patient was seen by telemetry neurologist and an infectious/metabolic work-up was recommended. Admission was discussed with patient. Patient however did not want to stay at the hospital. As preparations was being made to give patient AMA papers patient went into tonic clonic seizures. [facility] Medical History Chlamydia Depression History of drug abuse History of pre-term labor History of substance abuse Seizure disorder Smoking addiction Vaginal delivery Home Medications lamotrigine 200 mg tablet (Lamictal) 700 mg PO DAILY 06/04/21 [History Last Taken 06/09/22 08:30] Allergy/AdvReac Type Severity Reaction Status Date / Time tomato AdvReac Vomiting Verified 03/25/23 23:07 Family History Other Alcohol abuse Arthritis Depression Seizures Surgical History no surgical history no surgical history Social History Smoking Status: Current every day smoker tobacco type: cigarettes alcohol intake: current alcohol intake frequency: a few times a week details: Hx of alcohol abuse substance use type: does not use, former substance user Date of last use: 2010 , opiates, painkillers and methamphetamine what type of physical activity do you participate in: walking frequency: daily ROS Review of Systems ROS Unobtainable: due to mental condition Vital Signs Vital Signs Vital Signs: 03/25/23 20:04 03/25/23 20:18 03/25/23 20:18 Temperature 97.3 F L Temperature Source Temporal Pulse Rate 96 Respiratory Rate 23 H Blood Pressure 131/70 H Blood Pressure Mean 90 Pulse Ox 97 Oxygen Delivery Method Room Air Room Air 03/25/23 20:18 03/25/23 20:51 03/25/23 21:11 Temperature Temperature Source Pulse Rate 101 H 70 86 Respiratory Rate 23 H 15 14 Blood Pressure 131/70 H 113/88 H 105/60 Blood Pressure Mean 90 96 75 Pulse Ox 97 100 98 Oxygen Delivery Method Room Air Room Air Room Air 03/25/23 21:47 03/25/23 22:24 03/25/23 23:17 Temperature Temperature Source Pulse Rate 99 84 80 Respiratory Rate 13 16 13 Blood Pressure 93/50 L 110/66 104/64 Blood Pressure Mean 64 80 77 Pulse Ox 100 95 100 Oxygen Delivery Method Room Air Room Air Room Air Weight Weight: 84.7 kg Body Mass Index (BMI) 27.6 Physical Exam Narrative Physical exam: General: Well-nourished, well-developed. Head: Normocephalic, atraumatic, no tenderness Eyes: Vision is grossly intact. EOMI ENT, no trauma, moist mucous membranes, no rhinorrhea Neck: Nontender, No thyromegaly. CVS: Regular rate and rhythm. S1-S2 present. No murmur, gallop or rub. Respiratory : clear to auscultation bilaterally, chest wall nontender Abdomen: Soft, nontender, nondistended, normal bowel sounds, no masses : Deferred Back: Nontender, no CVA tenderness Extremities: Nontender full range of motion, no trauma Skin: Normal color, no trauma, abrasions Neuro:Lethargic, oriented, cranial nerves II through XII grossly intact. Psychiatry: Normal mood. Normal affect. Not depressed. Not anxious. Results Lab / Micro Data 03/25/23 20:00 03/25/23 20:00 Labs: Laboratory Results - last 24 hr 03/25/23 20:00: WBC 11.6 H, RBC 3.78 L, Hgb 11.7 L, Hct 35.3 L, MCV 93.4, MCH 31.0, MCHC 33.1, RDW Std Deviation 43.7, RDW Coeff of Abiodun 12.7, Plt Count 270, MPV 9.5, Immature Gran % (Auto) 0.400, Neut % (Auto) 68.9, Lymph % (Auto) 20.9, [place] % (Auto) 7.4, Eos % (Auto) 2.0, Baso % (Auto) 0.4, Absolute Neuts (auto) 8.0 H, Absolute Lymphs (auto) 2.42, Nucleated RBC % 0, PT 14.5, INR 1.1, APTT 26.0, Sodium 140, Potassium 3.7, Chloride 109 H, Carbon Dioxide 27.0, Anion Gap 4 L, BUN 11, Creatinine 0.76, Estim Creat Clear Calc 111.06, Est GFR (MDRD) Af Amer 114, Est GFR (MDRD) Non-Af 94, BUN/Creatinine Ratio 14.6, Glucose 96, Calcium 9.0, Magnesium 2.1, Troponin I High Sens < 3 L, TSH 2.65, Serum , Qual NEGATIVE, Ethyl Alcohol < 3.0 03/25/23 21:53: Urine Opiates Screen NEGATIVE, Urine Methadone Screen NEGATIVE, Ur Barbiturates Screen NEGATIVE, Ur Phencyclidine Scrn NEGATIVE, Ur Amphetamines Screen NEGATIVE, MDMA (Ecstasy) Screen NEGATIVE, U Benzodiazepines Scrn NEGATIVE, Urine Cocaine Screen NEGATIVE, U Cannabinoids Screen NEGATIVE, Ur Drug Screen Comment ABG Data ABG results: ABG 03/25/23 23:27 Specimen Type ART Sample Site R Radial pH 7.39 Bicarbonate Actual 26.7 H Total CO2 28 Base Excess 2 O2 Saturation 97 ABG pCO2 43.7 ABG pO2 87 Иван Test Positive Radiology Impression Brain CT 03/25/23 20:06 IMPRESSION: Negative Brain CT without contrast. N.B. : The above Results were Read Back by Iftikhar Adan MD to Adrienne Esquivel and understanding confirmed on 03/25/2023 20:30:32 (ET). Electronically Signed: Iftikhar Adan MD at 20:31 EDT , ADDENDUM: 03/25/232037 IMPRESSION: Negative Brain CT without contrast. N.B. : The above Results were Read Back by Iftikhar Adan MD to Adrienne Esquivel and understanding confirmed on 03/25/2023 20:30:32 (ET). Electronically Signed: Iftikhar Adan MD at 20:31 EDT Reading Location ID and State: [id number] / [employer] , Service support , Head/Neck CTA 03/25/23 20:06 IMPRESSION: Normal CTA Head and neck with contrast. N.B. : The above Results were Read Back by Iftikhar Adan MD to Adrienne Esquivel and understanding confirmed on 03/25/2023 20:52:30 (ET). Electronically Signed: Iftikhar Adan MD at 20:53 EDT Reading Location ID and State: [id number] / [employer] , Service support , ADDENDUM: 03/25/23 2100 IMPRESSION: Normal CTA Head and neck with contrast. N.B. : The above Results were Read Back by Iftikhar Adan MD to Adrienne Esquivel and understanding confirmed on 03/25/2023 20:52:30 (ET). Electronically Signed: Iftikhar Adan MD at 20:53 EDT Reading Location ID and State: [id number] / [employer] , Service support , Chest X-Ray 03/25/23 20:55 IMPRESSION: Normal x-ray examination of the chest. Electronically Signed: Iftikhar Adan MD at 21:26 EDT Reading Location ID and State: [id number] / [employer] , Service support , Assessment & Plan Assessment/Plan (1) Acute alteration in mental status: (2) Encephalopathy acute: (3) Seizures: PLAN: Plan Acute Encephalopathy likely from seizure Less likely stroke Serial NINDS NIH Scale ordered Impression of head CT by radiology:Negative Brain CT without contrast. CT head was independently interpreted by hospitalist, agrees with radiology interpretation. Head and neck CTA was normal. MRI head ordered. Echocardiogram ordered. Lipid profile and A1c ordered. Physical therapy, occupational therapy and speech therapy to work with patient. N.p.o. until bedside swallow eval. Less likely stroke. Patient is encephalopathic we will hold off aspirin at this time. No high intense statin at this time. Permissive hypertension. Control blood pressure with labetalol for systolic blood pressure of more than 220 or diastolic blood pressure of more than 120. EEG ordered. Check CPK and prolactin Resume patient's Lamictal if she cannot stay awake enough to take. Keppra bolus IV given at the emergency department. Keppra IV continued.. PRN ativan IV for seizures ordered. Time spent in the patient's overall evaluation,decision-making process, review of diagnostic data, adjustment of management, discussion with other providers, nursing nursing and ancillary staff involved in patient's care documentation, 65 minutes. Charges/Coding Visit Charges Inpatient E&M: 04630 Init Hosp L3
--- NOTE | 2023-03-26 00:02 | ED.RN ---
Update given to about pt condition. would like updates to be given as they come up.
[2023-03-26 00:04] VITALS: BP 103/55; PULSE 83; RESP 20; O2SAT 99
[2023-03-26 00:09] LABS: Ammonia < 10.0 umol/L (11-32)
--- NOTE | 2023-03-26 00:21 | ED.RN ---
Pt wanting to leave AMA after talking with hospitalist. This RN went to d/c pt, pt started to have seizure lasting approx. 1 min. Alerted staff to pt condition, verbal order for IV Ativan given by Dr. Esquivel, but not given since pt stopped seizing. Pt placed on 2L NC and turned on side. Vitals are as follows: 127/61, HR 106, O2 100%, RR 19. has been called for pt update.
[2023-03-26] MEDS: levETIRAcetam IV 1,000 MG/100 ML BAG 400 MG IV (00:47)
[2023-03-26 00:50] VITALS: BP 107/55; PULSE 118; RESP 23; O2SAT 100
[2023-03-26 01:21] LABS: CPK Total, Creatine Kinase 178 U/L (26-192); Prolactin 56.7 ng/mL
[2023-03-26 01:32] VITALS: BP 97/51; PULSE 85; RESP 15; O2SAT 99
[2023-03-26 02:00] VITALS: BP 94/56; PULSE 84; RESP 17; O2SAT 100
[2023-03-26 03:00] VITALS: BP 91/50; PULSE 90; RESP 15; O2SAT 99
[2023-03-29 18:07] LABS: Lamotrigine (Lamictal) Level 7.7 ug/mL (2.0-20.0)
[2023-03-31 10:36] LABS: Bedside Glucose 94 mg/dL (74-106)
== END 2023-03-26 03:40 | disposition home or self-care (01) ==
PROVIDERS: Hospitalist; Emergency Provider Emergency Medicine; Visit Provider Emergency Medicine
DX: R53.1 Weakness (principal); R56.9 Unspecified convulsions; R41.82 Altered mental status, unspecified; F17.210 Nicotine dependence, cigarettes, uncomplicated
CPT/HCPCS: 36600; 70450; 70496; 70498; 71045; 80048; 80307; 82077; 82140; 82542; 82550; 82803; 82962; 83735; 84146; 84443; 84484; 84703; 85025; 85610; 85730; 93005; 96365; 99285; Q9967; A4216

== ENCOUNTER 2023-08-21 08:48 | Emergency (ER) | payer MEDICAID, SELFPAY ==
[2023-08-21 08:48] VITALS: BP 143/66; PULSE 120; RESP 16; TEMP 36.6; O2SAT 100; BMI 27.7
--- OUTSIDE RECORDS SUMMARY | 2023-08-21 08:59 | XMS RPT_ITS | CCD ---
Author Name Unknown Address [address] [place] [address] Organization [facility] Care Team Providers Care Kiss Mixer Name Role Phone PHYSICIAN, NOT RECORDED Primary Care Physician U nicole SALCEDO, Nery F Primary Care Provider Rojas LABORATORY TECHNICIAN-COMMERCIAL LIGHT FIXTURE ASSEMBLERRadhames Unavailable [facility] Unavailable [phone] DYLON MCKENNA DO Admitting Unavailable DYLON MCKENNA DO Attending Unavailable DYLON MCKENNA DO Primary Care Unavailable TERESE LARA M Referring Unavailable CATALANDAUTUMNRO R Referring Unavailable CATALAND SPERO R Referring Unavailable PATTON, NERY F Primary Care Unavailable PATTON, NERY F Attending Unavailable PATTON, NERY F Referring Unavailable PATTON, NERY F Primary Care Unavailable PATTON, NERY F Attending Unavailable PATTON, NERY F Referring Unavailable PATTON, NERY F Primary Care Unavailable PATTON, NERY F Attending Unavailable PATTON, NERY F Referring Unavailable SELF, SELF Referring Unavailable PATTON, NERY F Primary Care Unavailable PATTON, NERY F Attending Unavailable RADHAMES ARRINGTON Attending Unavailable SELF, SELF Referring Unavailable PATTON, NERY F Primary Care Unavailable PATTON, NERY F Primary Care Unavailable PATTON, NERY F Referring Unavailable PATTON, NERY F Primary Care Unavailable RADHAMES ARRINGTON Attending Unavailable TERESE, LARA M Referring Unavailable Unavailable Primary Care Provider UnavailHOSEA Pineda Attending Unavailable Allergies Allergy Classification Reported Allergen(s) Allergy Type Date of Onset Reaction(s) Facility (4 sources) tomato allergenic extract; Translations: [TOMATO] Drug Allergy 04-02-[address] [facility] Repository Medications Current Medications Medication Drug Class(es) Dates Sig (Normalized) Sig (Original) metoclopramide 10 mg oral tablet (1 source) Dopamine-2 Receptor Antagonist Start: 10-21-2021 End: 10-28-2021 Reglan 10 mg oral tablet Dose : 10 mg = 1 tab(s), Oral, TID, X 7 day(s), # 21 tab(s), 0 Refill(s), 10/28/21 17:35:00 EDT, Nausea Start Date: 10/21/21 Stop Date: 10/28/21 Status: Ordered Completed/Discontinued Medications Medication Drug Class(es) Dates Sig (Normalized) Sig (Original) doxycycline monohydrate 100 mg oral tablet (2 sources) Tetracycline-clas s Drug Start: 03-11-2023 End: 03-16-2023 take 1 tablet by mouth twice daily doxycycline monohydrate 100 mg tablet Indications: Cutaneous abscess of buttock Take 1 tablet by mouth twice daily for 5 days. 10 tablet 0 03/11/2023 03/16/2023 Problems Active Problems Problem Classification Problem Date Documented Da te Episodic/Chronic Epilepsy; convulsions (3 sources) Seizure disorder; Translations: [Epilepsy, unspecified, not intractable, without status epilepticus] Onset: 02-24-2022 02-24-2022 Chronic Nausea and vomiting (1 source) Nausea; Translations: [Nausea] Onset: 10-21-2021 Episodic Other nutritional; endocrine; and metabolic disorders (2 sources) Obese class I; Translations: [Obesity, unspecified] Onset: 12-23-2021 12-23-2021 Chronic Skin and subcutaneous tissue infections (2 sources) Abscess of buttock; Translations: [Cutaneous abscess of buttock] 03-11-2023 Episodic Substance-related disorders (2 sources) History of drug abuse; Translations: [Other psychoactive substance abuse, in remission] Onset: 01-14-2017 05-19-2018 Chronic Past or Other Problems Problem Classification Problem Date Documented Da te Episodic/Chronic Administrative/social admission (2 sources) Legal problem; Translations: [Problems related to other legal circumstances] Onset: 01-14-2017 05-19-2018 Episodic Epilepsy; convulsions (3 sources) Seizure; Translations: [Unspecified convulsions] Onset: 01-16-2022 Episodic Other infections; including parasitic (2 sources) History of chlamydial infection; Translations: [Personal history of other infectious and parasitic diseases] Onset: 05-19-2018 05-19-2018 Episodic Residual codes; unclassified (1 source) Gestation period, 22 weeks; Translations: [22 weeks gestation of ] Onset: 02-24-2022 02-24-2022 Episodic Residual codes; unclassified (2 sources) Procedure and treatment not carried out because of patient's decision for other reasons; Translations: [Procedure and treatment not carried out because of patient's decision for other reasons] Onset: 04-07-2022 Episodic Screening and history of mental health and substance abuse codes (2 sources) H/O: depression; Translations: [Personal history of other mental and behavioral disorders] Onset: 01-14-2017 05-19-2018 Episodic Results Test Name Value Interpretation Reference Range Facil ity Vital Signs Date Time Vital Sign Value Performing Clinician Facility 03-12-2023 15:02-0400 Body height 175.3 cm Hosea [place] PA-C Work Phone: [facility] 03-12-2023 15:02-0400 Body temperature 98.4 [degF] Hosea [place] PA-C Work Phone: [facility] 03-12-2023 15:02-0400 Body weight 83.28 kg Hosea Irwin PA-C Work Phone: [facility] 03-12-2023 15:02-0400 Diastolic blood pressure 62 mm[Hg] Hosea Irwin PA-C Work Phone: [facility] 03-12-2023 15:02-0400 Heart rate 101 /min Hosea [place] PA-C Work Phone: [facility] 03-12-2023 15:02-0400 SaO2% (BldA) [Mass fraction] 98 % Hosea Irwin PA-C Work Phone: [facility] 03-12-2023 15:02-0400 Systolic blood pressure 110 mm[Hg] Hosea Irwin PA-C Work Phone: [facility] 03-11-2023 11:48-0400 Body temperature 98.6 [degF] Santiago William LABORATORY TECHNICIAN.COMMERCIAL LIGHT FIXTURE ASSEMBLER Work Phone: [facility] 03-11-2023 11:48-0400 Body weight 83.73 kg Santiago Thomas LABORATORY TECHNICIAN.COMMERCIAL LIGHT FIXTURE ASSEMBLER Work Phone: [facility] 03-11-2023 11:48-0400 Diastolic blood pressure 76 mm[Hg] Santiago Thomas LABORATORY TECHNICIAN.COMMERCIAL LIGHT FIXTURE ASSEMBLER Work Phone: [facility] 03-11-2023 11:48-0400 Heart rate 110 /min Santiago King LABORATORY TECHNICIAN.COMMERCIAL LIGHT FIXTURE ASSEMBLER Work Phone: [facility] 03-11-2023 11:48-0400 Respiratory rate 18 /min Santiago King LABORATORY TECHNICIAN.COMMERCIAL LIGHT FIXTURE ASSEMBLER Work Phone: [facility] 03-11-2023 11:48-0400 SaO2% (BldA) [Mass fraction] 99 % Santiago King LABORATORY TECHNICIAN.COMMERCIAL LIGHT FIXTURE ASSEMBLER Work Phone: [facility] 03-11-2023 11:48-0400 Systolic blood pressure 113 mm[Hg] Santiago Thomas LABORATORY TECHNICIAN.COMMERCIAL LIGHT FIXTURE ASSEMBLER Work Phone: [facility] 01-16-2022 07:47-0400 Diastolic blood pressure 64 mm[Hg] Nery Patton MBBS Work Phone: [facility] 01-16-2022 07:47-0400 Heart rate 89 /min Nery Patton MBBS Work Phone: [facility] 01-16-2022 07:47-0400 Systolic blood pressure 118 mm[Hg] Nery Patton MBBS Work Phone: [facility] 01-16-2022 07:36-0400 Body height 172.7 cm Nery Patton MBBS Work Phone: [facility] 10-21-2021 16:21-0400 Body temperature 98.42 [degF] NORMA ECKERT DO [facility] 10-21-2021 16:21-0400 Diastolic blood pressure 84 mm[Hg] NORMA ECKERT DO [facility] 10-21-2021 16:21-0400 Heart rate 100 /min NORMA ECKERT DO [facility] 10-21-2021 16:21-0400 Respiratory rate 18 /min NORMA ECKERT DO [facility] 10-21-2021 16:21-0400 Systolic blood pressure 126 mm[Hg] NORMA ECKERT DO [facility] Encounters Encounter Date Encounter Type Care Provider Facility Start: 03-12-2023 End: 03-12-2023 ambulatory HOSEA GAYLE Facility:[facility] Start: 03-12-2023 End: 03-12-2023 Patient encounter procedure Hosea Gayle PA-C Work Phone: General Surgery Plan of Treatment Date Care Activity Detail Author Start: 10-17-2028 Tetanus vaccination TETANUS [facility] Start: 10-17-2028 Urine microalbumin profile DTAP,TDAP,TD (4 - Td or Tdap) [facility] Start: 05-03-2023 PAP TESTING PAP TESTING [facility] Start: 03-26-2023 Influenza vaccination INFLUENZA (#1) [facility] Start: 07-26-2022 DEPRESSION ASSESSMENT DEPRESSION ASSESSMENT [facility] Start: 03-26-2022 Influenza vaccination [facility] Start: 01-20-2022 End: 01-20-2022 Telemedicine consultation with patient 01/20/2022 Telemedicine Neurology Nery Patton MBBS [address] [place] [address] [facility] Start: 2020 HPV TESTING HPV TESTING [facility] Start: 2011 Screening for malignant neoplasm of cervix CERVICAL CANCER SCREENING DISCUSSION [facility] Start: 2009 Third diphtheria, tetanus and acellular pertussis (DTaP) vaccination TDAP (ADULT) [facility] Start: 2008 Tetanus vaccination TETANUS [facility] Start: 2005 HIV screening HIV SCREENING DISCUSSION [facility] Start: 1996 PNEUMOCOCCAL (1 - PCV) PNEUMOCOCCAL (1 - PCV) [facility] Start: 1996 PNEUMOCOCCAL VACCINE SERIES (1 - PCV) PNEUMOCOCCAL VACCINE SERIES (1 - PCV) [facility] Start: 01-20-1991 COVID-19 VACCINE (#1) COVID-19 VACCINE (#1) [facility] Start: 1990 HEPATITIS B (1 of 3 - 3-dose series) HEPATITIS B (1 of 3 - 3-dose series) [facility] Start: 1990 Hepatitis C antibody, confirmatory test HEPATITIS C VIRUS SCREENING [facility] Start: 1990 Hepatitis C screening HEPATITIS C VIRUS SCREENING [facility] End: 01-16-2022 MR Brain WO contrast [facility] Immunizations Immunization Date Immunization Notes Care Provider Opal gonzalez 10-17-2018 tetanus toxoid, redu windy diphtheria toxoid, and acellular pertussis vaccine, adsorbed Santiago William LABORATORY TECHNICIAN.COMMERCIAL LIGHT FIXTURE ASSEMBLER Work Phone: [facility] 05-02-2015 tetanus toxoid, redu windy diphtheria toxoid, and acellular pertussis vaccine, adsorbed Santiago William LABORATORY TECHNICIAN.COMMERCIAL LIGHT FIXTURE ASSEMBLER Work Phone: [facility] 09-23-2014 tetanus toxoid, redu windy diphtheria toxoid, and acellular pertussis vaccine, adsorbed Santiago William LABORATORY TECHNICIAN.COMMERCIAL LIGHT FIXTURE ASSEMBLER Work Phone: [facility] 09-10-2014 influenza, injectabl e, quadrivalent, preservative free Santiago William LABORATORY TECHNICIAN.COMMERCIAL LIGHT FIXTURE ASSEMBLER Work Phone: [facility] 09-10-2014 influenza virus vaccine, unspecified formulation Nery SALCEDO Work Phone: [facility] Payers Date Payer Category Payer Medicaid [employer] [id number] 2022-Present [phone] [address] [place] [address] Medicaid [id number] 2021 Unknown [employer] [id number] 2021-Present [address] [place] [address] [id number] 2021 Unknown [id number] 2021 Unknown [id number] 1990 Unknown [id number] 1990 Unknown [id number] 1990 Unknown [id number] 1990 Unknown [id number] 1990 Unknown [id number] 1990 Unknown [id number] 1990 Unknown [id number] 1990 Unknown [id number] 1990 Unknown [id number] 1990 Unknown [id number] 1990 Unknown [id number] 1990 Unknown [id number] Social History Date Type Detail Facility Start: 04-09-2021 Tobacco smoking status Heavy t obacco smoker (finding) [facility] Sex Assigned At Female [facility] Start: 12-23-2021 End: 03-11-2023 Tobacco smoking status NHIS Smokes tobacco daily [facility] History of tobacco use Cigarette Smoker O [facility] Start: 12-23-2021 End: 03-12-2023 Cigarettes smoked current (pack per day) - Reported 0.5 [facility] Start: 12-23-2021 End: 03-11-2023 Tobacco use and exposure Smokeless tobacco non-user [facility] Start: 01-16-2022 End: 02-24-2022 Alcohol intake Current drinker of alcohol (finding) [facility] Start: 12-23-2021 History SDOH Alcohol Comment occaisionaly [facility] Start: 10-02-2021 [facility] Start: 1990 Sex Assigned At Not on file O [facility] Start: 03-11-2023 End: 03-12-2023 Alcohol intake Current non-drinker of alcohol (finding) [facility] Start: 03-11-2023 End: 03-12-2023 Tobacco use panel [facility] National Score (1-10 0), lower number is lower risk Not on file [facility] Start: 03-11-2023 Tobacco Comment 4-6 cigarettes a day [facility] Functional Status Date Assessment Result Facility 10-21-2021 Functional Status [facility] Mental Status Date Assessment Result Facility 10-21-2021 Mental Status [facility] Clinical Notes 02-25-2019 to 03-24-2023 Hosea Gayle PA-C - 03/24/2023 12:57 PM EDCheryl Benites RN - 03/12/2023 3:23 PM EDTPatient Tequila Curiel LPN - 03/12/2023 3:05 PM EDT Note Date & Type Note Facility 03-24-2023 Note HNO ID: [id number] Author: Hosea Gayle PA-C Service: ? Author Type: Physician Homogenizer Operator Type: Progress Notes Filed: 03/24/2023 1:00 PM Note Text: HISTORY AND PHYSICAL Hedy Haji 1990 REFERRING PHYSICIAN: No ref. provider found CHIEF COMPLAINT: left thigh abscess HPI: Hedy is a 32 year old female with a complaint of a painful abscess on the left posterior thigh x 2 days. Denies fever or chills. The patient was seen in [facility] and was started on oral antibiotics. SIGNIFICANT MEDICAL PROBLEMS: PAST MEDICAL HISTORY Diagnosis Date Depression Epilepsy (HCC) fracture age 10 playground accident right arm OPERATIONS: PAST SURGICAL HISTORY Procedure Laterality Date NONE CURRENT MEDICATIONS: Current Outpatient Medications Medication Sig Dispense Refill lamoTRIgine ER (LAMICTAL XR) 300 mg 24 hr tablet Take 600 mg by mouth daily at bedtime. lamoTRIgine ER (LAMICTAL XR) 100 mg 24 hr tablet Take 1 tablet by mouth at bedtime. (take with 600 mg dose total 700 mg daily) penicillin V potassium (V-CILLIN, VEETIDS) 500 mg tablet Take 1 tablet by mouth four times daily. (Patient not taking: Reported on 03/11/2023) 0 sertraline (ZOLOFT) 25 mg tablet Take 1 tablet by mouth once daily. (Patient not taking: Reported on 03/11/2023) 0 levETIRAcetam (KEPPRA) 500 mg tablet Take 1 tablet by mouth daily at bedtime. (Patient not taking: Reported on 03/11/2023) 3 levETIRAcetam (KEPPRA) 750 mg tablet Take 2 tablets by mouth once daily. (Patient not taking: Reported on 03/11/2023) 3 ibuprofen (MOTRIN) 600 mg tablet TAKE 1 TABLET EVERY 6 HOURS NEEDED for mild pain (1 (ONE) to3/ TEN) (Patient not taking: Reported on 03/11/2023) 0 levetiracetam (KEPPRA ORAL) Take by mouth. (Patient not taking: Reported on 03/11/2023) omeprazole (PRILOSEC) 20 mg capsule Take 1 capsule by mouth once daily. (Patient not taking: Reported on 03/03/2019) 30 capsule 1 Ijtgmclf-Nf-Sri-Fe-FA tab Take 1 tablet by mouth once daily. (Patient not taking: Reported on 03/03/2019) 60 tablet 3 Ferrous Sulfate, Dried (SLOW RELEASE IRON) 160 mg (50 mg iron) TbER Take 1 tablet by mouth once daily. (Patient not taking: Reported on 03/03/2019) 30 tablet 5 folic acid 1 mg tablet Take 1 tablet by mouth once daily. (Patient not taking: Reported on 03/03/2019) 30 tablet 11 No current facility-administered medications for this visit. ALLERGIES: Tomato PERSONAL HISTORY: Social History Tobacco Use Smoking status: Every Day Packs/day: 0.25 Years: 11.00 Additional pack years: 0.00 Total pack years: 2.75 Types: Cigarettes Smokeless tobacco: Never Tobacco comments: 4-6 cigarettes a day Vaping Use Vaping Use: Never used Substance Use Topics Alcohol use: No Drug use: Not Currently Types: Crystal Meth Comment: none x 2 yrs FAMILY HISTORY: FAMILY HISTORY Problem Relation Age of Onset Diabetes Maternal Grandmother other (Epilepsy) Mother Cataract Father REVIEW OF SYMPTOMS: negative except as noted above PHYSICAL EXAMINATION: General: The patient is 32 year old female, well nourished, well hydrated in no acute distress. The patient is oriented to time, place, and person. VITALS: Blood pressure 110/62, pulse 101, temperature 36.9 ?C (98.4 ?F), height 175.3 cm (5' 9 ), weight 83.3 kg (183 lb 9.6 oz), last menstrual period 02/28/2018, SpO2 98 %. Body mass index is 27.11 kg/m?. HEENT: exam deferred Extremities: no clubbing, cyanosis or edema. No adenopathy. Other: left posterior proximal thigh f+3 cm indurated area with overlying erythema and tenderness The skin overlying the point of maximal fluctance is viable. LABORATORY VALUES: As Noted RADIOLOGIC STUDIES: As Noted PROCEDURE: INCISION AND DRAINAGE OF left posterior thigh ABSCESS After consent was obtained and the site, person, and procedure verified, the patient`s skin was prepped and draped in the usual fashion. A combination of Lidocaine and Marcaine was injected into the skin. A linear incision was made over the point of maximal fluctuance. A medium amount of purulent material was drained. The abscess was then unroofed. The cavity was packed with plain gauze. The patient tolerated the procedure well. Assessment IMPRESSION: STATUS POST INCISION AND DRAINAGE OF left posterior thigh ABSCESS PLAN: Hedy is instructed to remove packing tomorrow and cover with bandaid. If the dressing becomes soaked or had significant drainage, the dressing should be changed. If there is minor bleeding from this skin edge, the patient should hold pressure on the incision. If there is continued bleeding, the patient should contact our office immediately. The patient should wash the wound with gentle soap and water. she may shower. The wound should not be immersed in a pool, bathtub, or even hot tub. Diagnoses: (L02.416) Abscess of left thigh (primary encounter diagnosis) Return to Clinic: The patient is instructed to (more content not included)... [facility] 03-24-2023 History of Presen t illness Narrative HISTORY AND PHYSICAL Hedy Haji 1990 REFERRING PHYSICIAN: No ref. provider found CHIEF COMPLAINT: left thigh abscess HPI: Hedy is a 32 year old female with a complaint of a painful abscess on the left posterior thigh x 2 days. Denies fever or chills. The patient was seen in [facility] and was started on oral antibiotics. SIGNIFICANT MEDICAL PROBLEMS: PAST MEDICAL HISTORY Diagnosis Date Depression Epilepsy (HCC) fracture age 10 playground accident right arm OPERATIONS: PAST SURGICAL HISTORY Procedure Laterality Date NONE CURRENT MEDICATIONS: Current Outpatient Medications Medication Sig Dispense Refill lamoTRIgine ER (LAMICTAL XR) 300 mg 24 hr tablet Take 600 mg by mouth daily at bedtime. lamoTRIgine ER (LAMICTAL XR) 100 mg 24 hr tablet Take 1 tablet by mouth at bedtime. (take with 600 mg dose total 700 mg daily) penicillin V potassium (V-CILLIN, VEETIDS) 500 mg tablet Take 1 tablet by mouth four times daily. (Patient not taking: Reported on 03/11/2023) 0 sertraline (ZOLOFT) 25 mg tablet Take 1 tablet by mouth once daily. (Patient not taking: Reported on 03/11/2023) 0 levETIRAcetam (KEPPRA) 500 mg tablet Take 1 tablet by mouth daily at bedtime. (Patient not taking: Reported on 03/11/2023) 3 levETIRAcetam (KEPPRA) 750 mg tablet Take 2 tablets by mouth once daily. (Patient not taking: Reported on 03/11/2023) 3 ibuprofen (MOTRIN) 600 mg tablet TAKE 1 TABLET EVERY 6 HOURS NEEDED for mild pain (1 (ONE) to3/ TEN) (Patient not taking: Reported on 03/11/2023) 0 levetiracetam (KEPPRA ORAL) Take by mouth. (Patient not taking: Reported on 03/11/2023) omeprazole (PRILOSEC) 20 mg capsule Take 1 capsule by mouth once daily. (Patient not taking: Reported on 03/03/2019) 30 capsule 1 Lsstgchy-Ig-Anr-Fe-FA tab Take 1 tablet by mouth once daily. (Patient not taking: Reported on 03/03/2019) 60 tablet 3 Ferrous Sulfate, Dried (SLOW RELEASE IRON) 160 mg (50 mg iron) TbER Take 1 tablet by mouth once daily. (Patient not taking: Reported on 03/03/2019) 30 tablet 5 folic acid 1 mg tablet Take 1 tablet by mouth once daily. (Patient not taking: Reported on 03/03/2019) 30 tablet 11 No current facility-administered medications for this visit. ALLERGIES: Tomato PERSONAL HISTORY: Social History Tobacco Use Smoking status: Every Day Packs/day: 0.25 Years: 11.00 Additional pack years: 0.00 Total pack years: 2.75 Types: Cigarettes Smokeless tobacco: Never Tobacco comments: 4-6 cigarettes a day Vaping Use Vaping Use: Never used Substance Use Topics Alcohol use: No Drug use: Not Currently Types: Crystal Meth Comment: none x 2 yrs FAMILY HISTORY: FAMILY HISTORY Problem Relation Age of Onset Diabetes Maternal Grandmother other (Epilepsy) Mother Cataract Father REVIEW OF SYMPTOMS: negative except as noted above PHYSICAL EXAMINATION: General: The patient is 32 year old female, well nourished, well hydrated in no acute distress. The patient is oriented to time, place, and person. VITALS: Blood pressure 110/62, pulse 101, temperature 36.9 C (98.4 F), height 175.3 cm (5' 9 ), weight 83.3 kg (183 lb 9.6 oz), last menstrual period 02/28/2018, SpO2 98 %. Body mass index is 27.11 kg/m . HEENT: exam deferred Extremities: no clubbing, cyanosis or edema. No adenopathy. Other: left posterior proximal thigh f+3 cm indurated area with overlying erythema and tenderness The skin overlying the point of maximal fluctance is viable. LABORATORY VALUES: As Noted RADIOLOGIC STUDIES: As Noted PROCEDURE: INCISION AND DRAINAGE OF left posterior thigh ABSCESS After consent was obtained and the site, person, and procedure verified, the patient`s skin was prepped and draped in the usual fashion. A combination of Lidocaine and Marcaine was injected into the skin. A linear incision was made over the point of maximal fluctuance. A medium amount of purulent material was drained. The abscess was then unroofed. The cavity was packed with plain gauze. The patient tolerated the procedure well. Assessment IMPRESSION: STATUS POST INCISION AND DRAINAGE OF left posterior thigh ABSCESS PLAN: Hedy is instructed to remove packing tomorrow and cover with bandaid. If the dressing becomes soaked or had significant drainage, the dressing should be changed. If there is minor bleeding from this skin edge, the patient should hold pressure on the incision. If there is continued bleeding, the patient should contact our office immediately. The patient should wash the wound with gentle soap and water. she may shower. The wound should not be immersed in a pool, bathtub, or even hot tub. Diagnoses: (L02.416) Abscess of left thigh (primary encounter diagnosis) Return to Clinic: The patient is instructed to follow-up with me in 10 days. The patient verbalized understanding of all above and agreed with the plan Hosea Gayle PA-C UNIVERSAL PROTOCOL / SAFETY CHECKLIST Procedure to be Performed: Incision and drainage left posterior thigh abscess Sign In: A Moment of CARE was completed. Personnel directly involved with the procedure wore the appropriate PPE (Personal Protective Equipment). No special equipment needed. Patient/Surrogate Stated/Verified: PATIENT VERIFIED(optional for EMERGENT procedures): Patient name, Date of , Relevant allergies, and The intended procedure Time Out Communication: Intended patient and procedure match the source documents. Consent documented and matches the intended procedure. No relevant labs, photos, and/or imaging studies were applicable for review. Correct side/site marked and visible. Medications required for procedure verified. No fire risk assessment and interventions applicable. No implant(s) inserted. Sign Out: SIGN OUT (optional for EMERGENT procedures): No specimen collected. No instruments, equipment or retained foreign bodies applicable. Post-procedure follow-up management communicated and Plan of Care Visit completed when applicable. Cheryl Arizmendi RN documented in this encounter [facility] 03-12-2023 Note HNO ID: [id number] Author: Cheryl Arizmendi RN Service: ? Author Type: Registered Nurse Type: Progress Notes Filed: 03/12/2023 3:52 PM Note Text: UNIVERSAL PROTOCOL / SAFETY CHECKLIST Procedure to be Performed: Incision and drainage left posterior thigh abscess Sign In: A Moment of CARE was completed. Personnel directly involved with the procedure wore the appropriate PPE (Personal Protective Equipment). No special equipment needed. Patient/Surrogate Stated/Verified: PATIENT VERIFIED(optional for EMERGENT procedures): Patient name, Date of , Relevant allergies, and The intended procedure Time Out Communication: Intended patient and procedure match the source documents. Consent documented and matches the intended procedure. No relevant labs, photos, and/or imaging studies were applicable for review. Correct side/site marked and visible. Medications required for procedure verified. No fire risk assessment and interventions applicable. No implant(s) inserted. Sign Out: SIGN OUT (optional for EMERGENT procedures): No specimen collected. No instruments, equipment or retained foreign bodies applicable. Post-procedure follow-up management communicated and Plan of Care Visit completed when applicable. Cheryl Arizmendi RN [facility] 03-12-2023 Instructions Cheryl Arizmendi RN - 03/12/2023 3:50 PM EDT The following instructions are important for you related to your office visit today with the [facility] General Surgeons. Instructions After ABSCESS DRAINAGE Tylenol & Ibuprofen for pain, take one every 4 hours and rotate in 4 hours with the next. You may remove the packing tomorrow. Get in shower and get packing wet, then pull out and discard. No need to repack. You may take Tylenol or Ibuprofen an hour before removing packing in shower. There may be some bleeding as the packing is removed. This may be controlled with direct pressure. The redness and swelling and discomfort should decrease after drainage of your abscess. If the redness, swelling, or discomfort increase or you start having high fevers, contact our office immediately. Once the packing has been removed, you should start performing sitz baths. For sitz baths-draw for five inches of lukewarm bath water and soak for approximately 10 minutes. If you note any additional difficulties, questions, or concerns, you should contact our office immediately @ [phone] and ask to be transferred to the General Surgery department. documented in this encounter [facility] 03-12-2023 Nurse Note REVIEW OF SYSTEMS: General: The patient denies fatigue, denies weight loss, denies weight gain, denies feeling hot, and denies feelings of cold. Eyes: The patient denies glaucoma, denies eye injury/surgery, does not wear glasses or contacts. Ear/Nose/Throat: The patient denies allergies, denies hayfever, denies ear infections, and denies bloody noses. Cardiovascular: The patient denies chest pain, denies heart disease, denies high blood pressure,denies cardiac stent, denies prior heart attack, denies irregular heart beat, denies high cholesterol, denies poor circulation, denies heart failure, other cardiac issues, denies claudication, denies cold feet, denies peripheral arterial stent. Respiratory: The patient denies tuberculosis, denies pneumonia, denies frequent cough, denies pulmonary embolism, denies shortness of breath, and denies coughing up blood. Gastrointestinal: The patient denies difficulty swallowing, denies acid reflux, denies ulcers, denies vomiting, denies jaundice/hepatitis, denies gallbladder problems, denies black or tarry stools, denies hemorrhoids, denies bleeding from rectum, denies diverticulitis, denies constipation, denies diarrhea, denies loss of stool control, and denies hernias. Kidney/Bladder: The patient denies kidney stones, denies urine infections, and denies bloody urine. Skin: The patient denies a history of skin cancer, denies bleeding/changing moles, and denies a history of skin rash. Neurologic: The patient NOTES a history of epilepsy/convulsions, denies headaches, denies head/spinal injuries, and denies stroke/TIA. Psychiatric: The patient denies psychiatric medications, NOTES depression, and denies voices, denies substance abuse. Endocrine: The patient denies thyroid disorders, denies diabetes, and denies hormonal problems. Hematologic: The patient denies a history of bruising, denies bleeding, and denies anemia, denies blood clots. Infections: The patient denies a history of measles and mumps, denies rheumatic fever, and denies sexually transmitted diseases. Musculoskeletal: The patient denies back pain/injury, denies back problems, denies sciatica, denies knee/foot trouble, denies arthritis, or denies gout. When was patient's last Mammogram screening? N/A Last Colonoscopy: no prior Tequila Barry LPN documented in this encounter [facility] 03-11-2023 Note HNO ID: [id number] Author: Santiago Thomas APRN.[employer]ERCIAL L[employer] FIXTURE ASSEMBLER Service: ? Author Type: Nurse Practitioner Type: Progress Notes Filed: 03/11/2023 12:36 PM Note Text: Subjective HPI HPI Hedy Haji is a 32 year old female who presents today for CC of cyst/infection. This started 1 day ago. Denies fever. Denies possibility of being . .Patient presents with: Derm Problem: Cyst or abscess L buttocks x1 day PAST MEDICAL HISTORY Diagnosis Date Depression Epilepsy (HCC) fracture age 10 playground accident right arm PAST SURGICAL HISTORY Procedure Laterality Date NONE ALLERGIES Tomato MEDICATIONS lamoTRIgine ER (LAMICTAL XR) 300 mg 24 hr tablet Take 600 mg by mouth daily at bedtime. lamoTRIgine ER (LAMICTAL XR) 100 mg 24 hr tablet Take 1 tablet by mouth at bedtime. (take with 600 mg dose total 700 mg daily) doxycycline monohydrate 100 mg tablet Take 1 tablet by mouth twice daily for 5 days. penicillin V potassium (V-CILLIN, VEETIDS) 500 mg tablet Take 1 tablet by mouth four times daily. (Patient not taking: Reported on 03/11/2023) sertraline (ZOLOFT) 25 mg tablet Take 1 tablet by mouth once daily. (Patient not taking: Reported on 03/11/2023) levETIRAcetam (KEPPRA) 500 mg tablet Take 1 tablet by mouth daily at bedtime. (Patient not taking: Reported on 03/11/2023) levETIRAcetam (KEPPRA) 750 mg tablet Take 2 tablets by mouth once daily. (Patient not taking: Reported on 03/11/2023) ibuprofen (MOTRIN) 600 mg tablet TAKE 1 TABLET EVERY 6 HOURS NEEDED for mild pain (1 (ONE) to3/ TEN) (Patient not taking: Reported on 03/11/2023) levetiracetam (KEPPRA ORAL) Take by mouth. (Patient not taking: Reported on 03/11/2023) omeprazole (PRILOSEC) 20 mg capsule Take 1 capsule by mouth once daily. (Patient not taking: Reported on 03/03/2019) Pahifolk-Av-Yqh-Fe-FA tab Take 1 tablet by mouth once daily. (Patient not taking: Reported on 03/03/2019) Ferrous Sulfate, Dried (SLOW RELEASE IRON) 160 mg (50 mg iron) TbER Take 1 tablet by mouth once daily. (Patient not taking: Reported on 03/03/2019) folic acid 1 mg tablet Take 1 tablet by mouth once daily. (Patient not taking: Reported on 03/03/2019) FAMILY HISTORY Problem Relation Age of Onset Diabetes Maternal Grandmother other (Epilepsy) Mother Cataract Father Social History Tobacco Use Smoking status: Every Day Packs/day: 0.25 Years: 11.00 Additional pack years: 0.00 Total pack years: 2.75 Types: Cigarettes Smokeless tobacco: Never Tobacco comments: 4-6 cigarettes a day Substance Use Topics Alcohol use: No Drug use: No Types: Crystal Meth Comment: none x 2 ROS Objective Blood pressure 113/76, pulse 110, temperature 37 ?C (98.6 ?F), resp. rate 18, weight 83.7 kg (184 lb 9.6 oz), last menstrual period 02/28/2018, SpO2 99 %. Physical Exam Constitutional: General: She is not in acute distress. Appearance: She is not toxic-appearing or diaphoretic. HENT: Head: Normocephalic and atraumatic. Pulmonary: Effort: Pulmonary effort is normal. No accessory muscle usage or respiratory distress. Skin: Neurological: Mental Status: She is alert and oriented to person, place, and time. ASSESSMENT/PLAN: 1. Cutaneous abscess of buttock - ICD9: 682.5, ICD10: L02.31 Will start atb and refer to general surgery for treatment Appointment made tomorrow, will see if can bump up appointment. - DOXYCYCLINE MONOHYDRATE 100 MG TABLET - CONSULT TO GENERAL SURGERY Santiago Thomas APRN.[facility] 03-11-2023 History of Presen t illness Narrative Images from the original note were not included. Subjective HPI HPI Hedy Haji is a 32 year old female who presents today for CC of cyst/infection. This started 1 day ago. Denies fever. Denies possibility of being . .Patient presents with: Derm Problem: Cyst or abscess L buttocks x1 day PAST MEDICAL HISTORY Diagnosis Date Depression Epilepsy (HCC) fracture age 10 playground accident right arm PAST SURGICAL HISTORY Procedure Laterality Date NONE ALLERGIES Tomato MEDICATIONS lamoTRIgine ER (LAMICTAL XR) 300 mg 24 hr tablet Take 600 mg by mouth daily at bedtime. lamoTRIgine ER (LAMICTAL XR) 100 mg 24 hr tablet Take 1 tablet by mouth at bedtime. (take with 600 mg dose total 700 mg daily) doxycycline monohydrate 100 mg tablet Take 1 tablet by mouth twice daily for 5 days. penicillin V potassium (V-CILLIN, VEETIDS) 500 mg tablet Take 1 tablet by mouth four times daily. (Patient not taking: Reported on 03/11/2023) sertraline (ZOLOFT) 25 mg tablet Take 1 tablet by mouth once daily. (Patient not taking: Reported on 03/11/2023) levETIRAcetam (KEPPRA) 500 mg tablet Take 1 tablet by mouth daily at bedtime. (Patient not taking: Reported on 03/11/2023) levETIRAcetam (KEPPRA) 750 mg tablet Take 2 tablets by mouth once daily. (Patient not taking: Reported on 03/11/2023) ibuprofen (MOTRIN) 600 mg tablet TAKE 1 TABLET EVERY 6 HOURS NEEDED for mild pain (1 (ONE) to3/ TEN) (Patient not taking: Reported on 03/11/2023) levetiracetam (KEPPRA ORAL) Take by mouth. (Patient not taking: Reported on 03/11/2023) omeprazole (PRILOSEC) 20 mg capsule Take 1 capsule by mouth once daily. (Patient not taking: Reported on 03/03/2019) Fjylibdd-Bp-Cky-Fe-FA tab Take 1 tablet by mouth once daily. (Patient not taking: Reported on 03/03/2019) Ferrous Sulfate, Dried (SLOW RELEASE IRON) 160 mg (50 mg iron) TbER Take 1 tablet by mouth once daily. (Patient not taking: Reported on 03/03/2019) folic acid 1 mg tablet Take 1 tablet by mouth once daily. (Patient not taking: Reported on 03/03/2019) FAMILY HISTORY Problem Relation Age of Onset Diabetes Maternal Grandmother other (Epilepsy) Mother Cataract Father Social History Tobacco Use Smoking status: Every Day Packs/day: 0.25 Years: 11.00 Additional pack years: 0.00 Total pack years: 2.75 Types: Cigarettes Smokeless tobacco: Never Tobacco comments: 4-6 cigarettes a day Substance Use Topics Alcohol use: No Drug use: No Types: Crystal Meth Comment: none x 2 ROS Objective Blood pressure 113/76, pulse 110, temperature 37 C (98.6 F), resp. rate 18, weight 83.7 kg (184 lb 9.6 oz), last menstrual period 02/28/2018, SpO2 99 %. Physical Exam Constitutional: General: She is not in acute distress. Appearance: She is not toxic-appearing or diaphoretic. HENT: Head: Normocephalic and atraumatic. Pulmonary: Effort: Pulmonary effort is normal. No accessory muscle usage or respiratory distress. Skin: Neurological: Mental Status: She is alert and oriented to person, place, and time. ASSESSMENT/PLAN: 1. Cutaneous abscess of buttock - ICD9: 682.5, ICD10: L02.31 Will start atb and refer to general surgery for treatment Appointment made tomorrow, will see if can bump up appointment. - DOXYCYCLINE MONOHYDRATE 100 MG TABLET - CONSULT TO GENERAL SURGERY Santiago Thomas APRN.CNP documented in this encounter [facility] 06-01-2022 Telephone encounter Note Medication Access Team coordinated the following: [facility] Clinics: MS/Neurology Prior Authorization Per the patient's insurance provider, Laura, the prior authorization for Lamotrigine 300mg SR (on-label) was approved. Authorization number: [id number] Authorization start date: 05/27/22 Authorization end date: 05/26/23 Non-Specialty Prescriptions: 1, 6-8 min Bettye Jacques [facility] 06-01-2022 Miscellaneous Notes Medication Access Team coordinated the following: [facility] Clinics: MS/Neurology Prior Authorization Per the patient's insurance provider, Laura, the prior authorization for Lamotrigine 300mg SR (on-label) was approved. Authorization number: [id number] Authorization start date: 05/27/22 Authorization end date: 05/26/23 Non-Specialty Prescriptions: 1, 6-8 min Bettye Jacques Per Laura rep Lamotrigine PA is still under review documented in this encounter [facility] 05-29-2022 Telephone encounter Note Per Laura rep Lamotrigine PA is still under review [facility] 10-21-2021 Hospital Discharg e instructions Patient Education 10/21/2021 17:36:00 Vomiting (Adult) Vomiting (Adult) Vomiting is a common symptom that may be due to different causes. These include gastroenteritis ( stomach flu ), food poisoning and gastritis. There are other more serious causes of vomiting which may be hard to diagnose early in the illness. Therefore, it is important to watch for the warning signs listed below. The main danger from repeated vomiting is dehydration. This is due to excess loss of water and minerals from the body. When this occurs, your body fluids must be replaced. Home care If symptoms are severe, rest at home for the next 24 hours. Because your symptoms may be from an infection, wash your hands often and well. If soap and water are not available, use alcohol-based financial data analyst to keep from spreading the infection to others. Wash your hands for at least 20 seconds. Humming the happy birthday song twice while you wash is an easy way to make sure you've washed for 20 seconds. Wash your hands after using the toilet, before and after preparing food, before eating food, after changing a diaper, cleaning a wound, caring for a sick person, and blowing your nose, coughing, or sneezing. You should also wash your hands after caring for someone who is sick, touching pet food, or treats, and touching an animal, or animal waste. You may use acetaminophen or NSAID medicines like ibuprofen or naproxen to control fever, unless another medicine was prescribed. If you have chronic liver or kidney disease or ever had a stomach ulcer or gastrointestinal bleeding, talk with your doctor before using these medicines. Aspirin should never be used in anyone under 18 years of age who is ill with a fever. It may cause severe liver damage. Don't use NSAID medicines if you are already taking one for another condition (like arthritis) or are on aspirin (such as for heart disease, or after a stroke) Don't use tobacco and or drink alcohol, which may worsen your symptoms. If medicines for vomiting were prescribed, take as directed. Once vomiting stops, then follow these guidelines: During the first 12 to 24 hours follow the diet below: Fruit juices. Apple, grape juice, clear fruit drinks, and electrolyte replacement drinks. Beverages. Soft drinks without caffeine; mineral water (plain or flavored), decaffeinated tea and coffee. Soups. Clear broth and bouillon Desserts. Plain gelatin, ice pops, and fruit juice bars. As you feel better, you may add 6 to 8 ounces of yogurt per day. During the next 24 hours you may add the following to the above: Hot cereal, plain toast, bread, rolls, crackers Plain noodles, rice, mashed potatoes, chicken noodle or rice soup Unsweetened canned fruit such as applesauce, bananas (avoid pineapple and citrus) Limit caffeine and chocolate. No spices or seasonings except salt. During the next 24 hours: Gradually resume a normal diet, as you feel better and your symptoms lessen. Follow-up care Follow up with your healthcare provider, or as advised. When to seek medical advice Call your healthcare provider right away if any of these occur: Constant right-sided lower belly pain or increasing general belly pain Continued vomiting (unable to keep liquids down) for 24 hours Vomiting blood or coffee grounds Swollen belly Frequent diarrhea (more than 5 times a day); blood (red or black color) or mucus in diarrhea Reduced urine output or extreme thirst Weakness, dizziness or fainting Unusually drowsy or confused Fever of 100.4 F (38 C) oral or higher, or as directed Yellow color of the eyes or skin [id number] [employer]. [address] [place] [address]. All rights reserved. This information is not intended as a substitute for professional medical care. Always follow your healthcare professional's instructions. Follow Up Care 10/21/2021 16:21:25 With:Call Physician Referral Address:Unknown When:2-4 days [facility] documented as of this encounter (statuses as of 03/11/2023) [facility] History of Past illness Narrative* Problem Noted Date Diagnosed Date Resolved Date IUGR (intrauterine growth re striction) affecting care of mother, third trimester, fetus 1 09/19/2018 12/13/2018 Dichorionic diamniotic twin , antepartum 05/19/2018 12/13/2018 Overview: 09/16/18 - twice weekly BPPs & NST at least once per week () - Nikunj Tate MD IUGR of baby A: Twice weekly BPP and doppler, at least once weekly NST. 07/14/18 - formal US confirms di/di twins - Nikunj Tate MD 05/19/18 - NT US ordered for formal confirmation of chorionicity - JOSSELIN Chlamydia infection affecting 01/19/2017 05/19/2018 Overview: 01/19/17: azithromycin ordered. Will need LENI and repeat screening at 36 weeks. Nga Soares MD Tobacco use during , antepartum 01/14/2017 12/13/2018 History of macrosomia in inf ant in prior , currently 01/14/2017 12/13/2018 History of epilepsy 01/14/2017 05/19/20 Overview: 01/14/2017 Patient has a history of epilepsy diagnosed at age 15. She is currently on Keppra prescribed by Dr Trujillo. He is aware she is . TKRN Patient requested diagnostic testing 01/14/2017 05/19/2018 Overview: 01/14/2017Patient desires aneuploidy screening. TKRN Seizure disorder during 09/23/2014 12/13/2018 Overview: 10/13/18 - patient saw 07/12. Patient declined keppra and was advised to avoid any seizure triggers. Full note scanned. Nikunj Tate MD 08/22/18 Pt had head MRI and to get an update from neuro. EB 05/26/18 - has appt with on 07/15/18. Nikunj Tate MD 05/19/18 - not on medication, needs to see neurology (patient plans to make her own appt) - Nikunj Tate MD Encounter for supervision of other normal 09/07/2014 05/19/2018 documented as of this encounter (statuses as of 03/24/2023) [facility] No data available for this section [facility] Evaluation note* Diagnosis Seizure Other convulsions [facility] Diagnosis Cutaneous abscess of buttock- Primary Cellulitis and abscess of buttock [facility] Diagnosis Abscess of left thigh- Primary Cellulitis and abscess of leg, except foot [facility] No data available for this section [facility] Summary Purpose Family History No Family History Records FoundNo Family History Records FoundNo Family History Records FoundNo Family History Records FoundNo Family History Records Found Advance Directives No Advanced Directives Records FoundNo Advanced Directives Records FoundNo Advanced Directives Records FoundNo Advanced Directives Records FoundNo Advanced Directives Records Found Reason for Referral Specialty Diagnoses / Procedures Referred By Huber ernandez Referred To Contact General Surgery Diagnoses Cutaneous abscess of buttock Procedures CONSULT TO GENERAL SURGERY OFFICE/OUTPATIENT [facility] 60-74 MINUTES Santiago Thomas APRN.COMMERCIAL LIGHT FIXTURE ASSEMBLER [address] [place] [address] Referral ID Status Reason Start Date Expiration Date Visits Requested Visits Authorized [id number] Authorized PCP Requested Referral 03/11/2023 03/10/2024 1 1 Specialty Diagnoses / Procedures Referred By Huber ernandez Referred To Contact Diagnoses Seizure Procedures MRI BRAIN WITHOUT CONTRAST MO MRI BRAIN Nery Patton [facility] [address] [phone] Referral ID Status Reason Start Date Expiration Date Visits Re quested Visits Authorized [id number] Closed 12/23/2021 01/17/2023 1 1 Additional Source Comments Care Team (unrecognized sect ion and content) Kiss Mixer Relationship Specialty Start Date End Date Radhames Arrington, LABORATORY TECHNICIAN-COMMERCIAL LIGHT FIXTURE ASSEMBLER [address] [phone] Nurse Practitioner Neurology 02/24/22 [facility] [address] [address] 02/24/22 INFORMATION SOURCE (unrecogn ized section and content) DATE CREATED AUTHOR AUTHOR'S ORGANIZ ATION 04/04/2022 [facility] DATE CREATED AUTHOR AUTHOR'S ORGANIZ ATION 07/28/2022 [facility] DATE CREATED AUTHOR AUTHOR'S ORGANIZ ATION 11/19/2022 [facility] DATE CREATED AUTHOR AUTHOR'S ORGANIZ ATION 03/25/2023 [facility] Reason for Visit (unrecogniz ed section and content) Referral ID Status Reason Start Date Expiration Date Visits Re quested Visits Authorized [id number] Closed 12/23/2021 01/17/2023 1 1 Reason Onset Date Comments Insurance 05/29/2022 Reason Comments Derm Problem Cyst or abscess L bu ttocks x1 day Reason Comments Consult Leg cyst Source Comments (unrecognize d section and content) In the event this informatio n is protected by the Federal Confidentiality of Alcohol and Drug Abuse Patient Records regulations: The Federal rules restrict any use of the information to criminally investigate or prosecute any alcohol or drug abuse patient.[facility] the event this information is protected by the Federal Confidentiality of Alcohol and Drug Abuse Patient Records regulations: The Federal rules restrict any use of the information to criminally investigate or prosecute any alcohol or drug abuse patient.[facility] FOR RECORDS PERTAINING TO PATIENTS WHO ARE OR HAVE BEEN ENROLLED IN A CHEMICAL DEPENDENCY/SUBSTANCEABUSE PROGRAM, SOME INFORMATION MAY BE OMITTED. This clinical summary was aggregated from multiple sources. Caution should be exercised in using it in the provision of clinical care. This summary normalizes information from multiple sources, and as a consequence, information in this document may materially change the coding, format and clinical context of patient data. In addition, data may be omitted in some cases. CLINICAL DECISIONS SHOULD BE BASED ON THE PRIMARY CLINICAL RECORDS. [facility] [employer] [facility]. provides no warranty or guarantee of the accuracy or completeness of information in this document.
--- NOTE | 2023-08-21 09:02 | EDS_ITS ---
HPI History of Present Illness Chief Complaint: Seizure Detail of Chief Complaint: Recurrent seizure x 1 today. Seizure history. No complaints. No injury. Informant: patient Onset/Context/Timing Onset: Today Context: Sudden Onset Current Severity: Gone Maximum Severity: Mild Narrative Narrative: 33-year-old female was at the [facility] had a seizure today. Denies any fall injury or trauma. Denies any recent illness or fever. Denies any recent head trauma. She has been taking her seizure medication which is Lamictal which she takes once a day at night. Currently denies any complaints. Prior similar symptoms: Yes Recent Illness/Hospitalization: No [facility] Medical History Chlamydia Depression History of drug abuse History of pre-term labor History of substance abuse Seizure disorder Smoking addiction Vaginal delivery Home Medications lamotrigine 200 mg tablet (Lamictal) 700 mg PO DAILY 06/04/21 [History Last Taken 06/09/22 08:30] Allergy/AdvReac Type Severity Reaction Status Date / Time tomato AdvReac Vomiting Verified 08/21/23 08:51 Family History Other Alcohol abuse Arthritis Depression Seizures Social History Smoking Status: Current every day smoker tobacco type: cigarettes alcohol intake: current alcohol intake frequency: a few times a week details: Hx of alcohol abuse substance use type: does not use, former substance user Date of last use: 2010 , opiates, painkillers and methamphetamine what type of physical activity do you participate in: walking frequency: daily ROS ROS ED ROS Narrative Patient denies recent illness. Denies headache. Or fever. Review of Systems ROS Unobtainable: Denies due to encephalopathy Constitutional Constitutional ED: Denies chills or fever(s) Eyes Eyes: Denies blurry vision ENT ENT ED: Denies ear pain Cardiovascular Cardiovascular: Denies chest pain Respiratory/Chest Respiratory/Chest: Denies cough Gastrointestinal Gastrointestinal: Denies abdominal pain Genitourinary Genitourinary ED: Denies dysuria or hematuria Musculoskeletal Musculoskeletal: Denies arthralgias Integumentary Denies abscess Neurologic Neurologic: Denies headache(s) Psychiatric Psychiatric: Denies anxiety Endocrine Endocrinology: Denies cold intolerance Hematologic/Lymphatic Hematologic/Lymphatic: Reports none Allergic/Immunologic Allergic/Immunologic ED: Denies mouth swelling, tongue swelling or urticaria EXAM Physical Exam Narrative Exam Narrative: Well-appearing 33-year-old female. Vital signs stable afebrile. Pulse ox 100% on room air no signs hypoxia. She does not look septic or toxic. She is in no distress. H EENT exam unremarkable. Pupils round reactive light. No signs of trauma to her face or scalp. Nontender. Facial piercings. No bite hawk on her tongue. Neck nontender no lymphadenopathy. No meningismus. Lungs clear to auscultation bilaterally. Heart regular rhythm rate about 110 no murmur. Chest wall and ribs nontender. Abdomen soft nontender. Pelvic girdle intact. Moving all 4 extremities. 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 Dorsi plantarflexion intact. Normal range of motion. Nontender no deformity. Back nontender. Neurologically she is awake and alert. She knows is July. She knows that she is in the hospital. She is answering questions and following commands. NIH score is 0. She has no focal motor deficits. Const Vital Signs: 08/21/23 08:48 Temperature 97.9 F Temperature Source Temporal Pulse Rate 120 H Respiratory Rate 16 Blood Pressure 143/66 H Blood Pressure Mean 91 Pulse Ox 100 Oxygen Delivery Method Room Air Positive well nourished and well developed; Negative for obese, cachectic, contractures or unkempt General Appearance ED: well developed and NAD; Negative for unkempt, cachectic, contractures, cyanotic, diaphoretic or pallor Nutritional Appearance: Negative for cachectic or obese HEENT Reports moist mucous membranes; Denies dry mucous membranes Negative for trauma or tenderness Mouth ED: No dry mucous membranes Mouth: No dry mucous membranes Eyes PERRL and EOMs intact bilaterally General Eye ED: Negative for pale conjunctiva, scleral icterus or other Neck no lymphadenopathy, supple and no JVD General: Negative for tenderness Lymph Lymphatic: Negative for other Chest Wall inspection of chest normal and palpation of chest normal Chest: Negative for other Resp normal respiratory effort and clear to auscultation bilaterally Effort and Inspection: Negative for retractions Auscultation: Negative for rales, rhonchi or wheezes Cardio regular rate, regular rhythm, S1 normal heart sound, S2 normal heart sound and no murmurs Palpation: Negative for palpable S3 Rate: Negative for bradycardia or tachycardic Rhythm: Negative for abnormal rhythm GI normal to inspection, nondistended, normoactive bowel sounds, non-tender, non- distended and no masses Inspection: Negative for abdominal distention Auscultation: normoactive bowel sounds Palpation: soft; Negative for tender or guarding Back/Spine no CVA tenderness General Back: Negative for CVA tenderness Cervical Spine: Negative for cervical spine tenderness Thoracic Spine / Upper Back: Negative for thoracic spinal tenderness Lumbar Spine / Lower Back: Negative for lumbar spinal tenderness Extremity normal to inspection General Extremety ED: Negative for edema or tenderness General Extremity: Negative for edema Neuro oriented x3 Sensorium / Orientation: alert; Negative for orientation impaired, lethargic or stuporous Motor Exam: strength 5/5 throughout Psych mental status grossly normal Appearance: Negative for unkempt Attitude: No agitated Mood & Affect: Negative for depressed, anxious or tearful Skin no rashes or lesions noted, no wounds and skin turgor normal General Skin Exam: elasticity normal; Negative for jaundice or pallor Lesions: No lesion noted Rashes: No rashes noted Trauma: Negative for abrasion Wounds: Negative for wounds noted MDM MDM MDM Narrative Medical decision making narrative: 33-year-old female history of seizure disorder currently taking her medications as prescribed. Had a seizure today. Currently has a normal exam. She is awake and alert. Answering questions and following commands. I do not think there is anything to do testing hardin. She has had no recent illness. There is no trauma. She will be discharged back to the [facility] with a ride. Discharge Plan Triage Chief Complaint: Seizure ED Provider: Surendra Varma Dx/Rx/DC Orders Clinical Impression: Seizure disorder Instructions: ED Seizure, Recurrent (Adult) Prescriptions: No Action lamotrigine [Lamictal] 200 mg Tablet 700 mg PO DAILY Primary Care Provider: Care Physician,No Primary Referrals: Care Physician,No Primary [Primary Care Provider] - Activity Restrictions/Additional Instructions: Follow-up with your doctor as needed. Make sure that you take your seizure medication today as prescribed. Return if feeling worse. Disposition Disposition: Home, Self Care
== END 2023-08-21 09:14 | disposition home or self-care (01) ==
PROVIDERS: Emergency Provider Emergency Medicine; Visit Provider Emergency Medicine
DX: G40.909 Epilepsy, unspecified, not intractable, without status epilepticus (principal); F17.210 Nicotine dependence, cigarettes, uncomplicated
CPT/HCPCS: 99282

== ENCOUNTER 2023-11-12 11:15 | Emergency (ER) | payer MEDICAID, SELFPAY ==
[2023-11-12 11:16] VITALS: BP 126/74; PULSE 84; RESP 16; TEMP 35.7; O2SAT 100
--- NOTE | 2023-11-12 11:23 | RAD_ITS ---
STUDY: X-RAY - RIGHT HAND REASON FOR EXAM: Female, 33 years old. PAIN R THUMB TECHNIQUE: 3 view(s) of the hand. COMPARISON: None. FINDINGS: Normal radiocarpal articulation. Normal distal radioulnar joint. Normal visualized carpal bones. Normal carpal articulations Normal carpometacarpal articulation of the thumb. Normal second through fifth carpometacarpal joints. Normal metacarpi. Normal metacarpophalangeal joint of the thumb. Normal interphalangeal joint of the thumb. Normal proximal and distal phalanges of the thumb. Normal metacarpophalangeal joints of the second through fifth fingers. Normal proximal and distal interphalangeal joints of the second through fifth fingers. Normal phalanges of the second through fifth fingers. The soft tissue structures are unremarkable. RAD/Hand Min 3 Views IMPRESSION: Normal x-ray examination of the hand. Electronically Signed: Jaime Tabor MD at 11:54 EDT ,
--- NOTE | 2023-11-12 12:50 | EDS_ITS ---
HPI History of Present Illness Chief Complaint: Upper Extremity Injury [facility] Medical History Chlamydia Depression History of drug abuse History of pre-term labor History of substance abuse Seizure disorder Smoking addiction Vaginal delivery Home Medications lamotrigine 200 mg tablet (Lamictal) 700 mg PO DAILY 06/04/21 [History Last Taken 06/09/22 08:30] Allergy/AdvReac Type Severity Reaction Status Date / Time tomato AdvReac Vomiting Verified 11/12/23 11:15 Family History Other Alcohol abuse Arthritis Depression Seizures Social History Smoking Status: Current every day smoker tobacco type: cigarettes alcohol intake: current alcohol intake frequency: a few times a week details: Hx of alcohol abuse substance use type: does not use, former substance user Date of last use: 2010 , opiates, painkillers and methamphetamine what type of physical activity do you participate in: walking frequency: daily EXAM Physical Exam Const Vital Signs: 11/12/23 11:16 Temperature 96.3 F L Temperature Source Temporal Pulse Rate 84 Respiratory Rate 16 Blood Pressure 126/74 H Blood Pressure Mean 91 Pulse Ox 100 Oxygen Delivery Method Room Air MDM MDM Radiography Diagnostic Testing: Clinical Impression(s) from Imaging Studies Hand X-Ray 11/12/23 11:23 IMPRESSION: Normal x-ray examination of the hand. Electronically Signed: Jaime Tabor MD at 11:54 EDT , Discharge Plan Triage Chief Complaint: Upper Extremity Injury ED Provider: Maurisio Richards Dx/Rx/DC Orders Prescriptions: No Action lamotrigine [Lamictal] 200 mg Tablet 700 mg PO DAILY Primary Care Provider: Care Physician,No Primary Referrals: Care Physician,No Primary [Primary Care Provider] -
--- NOTE | 2023-11-12 12:50 | EX.ED.UPPERE ---
HPI History of Present Illness Chief Complaint: Upper Extremity Injury Informant: patient Narrative Narrative: 33-year-old female presenting to the emergency room with throbbing pain of the right thumb. Patient states about 2 days ago she dug a splinter out of the lateral aspect of the thumb about half centimeter above the interphalangeal joint. She notes now it is swollen and painful. She never had anything like this before. No reported fevers. PFSH PFSH Medical History Chlamydia Depression History of drug abuse History of pre-term labor History of substance abuse Seizure disorder Smoking addiction Vaginal delivery Home Medications lamotrigine 200 mg tablet (Lamictal) 700 mg PO DAILY 06/04/21 [History Last Taken 06/09/22 08:30] cephalexin 500 mg capsule 500 mg PO Q6 #28 CAPSULES 11/12/23 [Rx Last Taken Unknown] hydrocodone-acetaminophen 5-325mg 5mg-325mg 1 tab PO Q6H PRN PRN Pain 3 days #10 TABLETS 11/12/23 [Rx Last Taken Unknown] Allergy/AdvReac Type Severity Reaction Status Date / Time tomato AdvReac Vomiting Verified 11/12/23 11:15 Family History Other Alcohol abuse Arthritis Depression Seizures Social History Smoking Status: Current every day smoker tobacco type: cigarettes alcohol intake: current alcohol intake frequency: a few times a week details: Hx of alcohol abuse substance use type: does not use, former substance user Date of last use: 2010 , opiates, painkillers and methamphetamine what type of physical activity do you participate in: walking frequency: daily ROS ROS ED Constitutional Constitutional ED: Denies chills or weight loss Eyes Eyes: Denies change in vision or diplopia ENT ENT ED: Denies ear pain, rhinorrhea or sore throat Cardiovascular Cardiovascular: Denies chest pain, orthopnea, palpitations or racing heartbeat Respiratory/Chest Respiratory/Chest: Denies cough, dyspnea or orthopnea Gastrointestinal Gastrointestinal: Denies abdominal pain, diarrhea, nausea or vomiting Genitourinary Genitourinary ED: Denies dysuria, hematuria or urinary frequency Musculoskeletal Musculoskeletal: Reports other Details: Right thumb Nail and nailbed appear normal. The distal tip of the thumb appears normal. Near the level of the interphalangeal joint is some erythematous skin with an area that appears to have recently had something dug out of it consistent with her history. The fat pad is still soft. Neurovascular appears intact. ; Denies arthralgias or myalgias Integumentary Denies abscess or rash Neurologic Neurologic: Denies headache(s) or weakness Psychiatric Psychiatric: Denies anxiety, depression, suicidal ideation or suicidal thoughts Endocrine Endocrinology: Denies polydipsia, polyphagia or polyuria Allergic/Immunologic Allergic/Immunologic ED: Denies mouth swelling, tongue swelling or urticaria EXAM Physical Exam Const Vital Signs: 11/12/23 11:16 Temperature 96.3 F L Temperature Source Temporal Pulse Rate 84 Respiratory Rate 16 Blood Pressure 126/74 H Blood Pressure Mean 91 Pulse Ox 100 Oxygen Delivery Method Room Air MDM MDM MDM Narrative Medical decision making narrative: On bedside ultrasound I do not see an obvious foreign body and I do not see an obvious fluid collection. As this appears moral at the lateral interphalangeal joint region and not necessarily on the fat pad I do not think this is a felon. I will be placing her on antibiotics warm compresses and pain medication. Advised her that this may turn into an abscess or a felon at which point she would need to return to emergency for drainage. Patient notes understanding of this. She understands return instructions. History & Record Review Discussion w/independent historian: Patient Radiography Diagnostic Testing: Clinical Impression(s) from Imaging Studies Hand X-Ray 11/12/23 11:23 IMPRESSION: Normal x-ray examination of the hand. Electronically Signed: Jaime Tabor MD at 11:54 EDT , Discharge Plan Triage Chief Complaint: Upper Extremity Injury ED Provider: Maurisio Richards Dx/Rx/DC Orders Clinical Impression: Pain of right thumb, Cellulitis Instructions: ED Cellulitis Prescriptions: New hydrocodone-acetaminophen [hydrocodone-acetaminophen] 5-325 mg tablet 1 tab PO Q6H PRN PRN (Reason: Pain) 3 Days Qty: 10 0RF cephalexin [cephalexin] 500 mg capsule 500 mg PO Q6 Qty: 28 0RF No Action lamotrigine [Lamictal] 200 mg Tablet 700 mg PO DAILY Primary Care Provider: Care Physician,No Primary Referrals: Care Physician,No Primary [Primary Care Provider] - Activity Restrictions/Additional Instructions: If not improving or worsening please return to the emergency department As discussed I feel you have a skin infection related to the splinter removal. This may worsen into a fluid collection called an abscess. If this happens you would require drainage here in the emergency department. Disposition Disposition: Home, Self Care
[2023-11-12] MEDS: Cephalexin 250 MG Capsule 500 MG PO (12:56)
[2023-11-12] MEDS: HYDROcodone Bitartrate/Apap 5/325 Tablet PO (12:56)
[2023-11-12 13:05] VITALS: BP 158/78; PULSE 78; RESP 16; TEMP 36.1; O2SAT 98
[2023-11-12 13:06] VITALS: BP 158/78; PULSE 81; RESP 16; TEMP 36.6; O2SAT 98
== END 2023-11-12 13:08 | disposition home or self-care (01) ==
LOC: ED 12:58
PROVIDERS: Emergency Provider Emergency Medicine; Visit Provider Emergency Medicine
DX: L03.011 Cellulitis of right finger (principal); M79.644 Pain in right finger(s); F17.210 Nicotine dependence, cigarettes, uncomplicated
CPT/HCPCS: 73130; 99282

== ENCOUNTER 2023-12-31 21:24 | Emergency (ER) | payer MEDICAID, SELFPAY ==
[2023-12-31 21:24] VITALS: BP 127/83; PULSE 89; RESP 14; TEMP 36.2; O2SAT 99
--- NOTE | 2023-12-31 21:37 | EDS_ITS ---
HPI History of Present Illness Chief Complaint: Upper Extremity Injury Informant: patient Narrative Narrative: [id number] female presents nontraumatic. Left wrist or radius or thumb since this morning. Motrin take this morning Tylenol taken recently. No history of similar. She does work with repetitive motions of both hands. Did not have pain when she went to bed. No history of similar. Prior similar symptoms: No PFSH PFSH Medical History Vaginal delivery History of pre-term labor Smoking addiction History of substance abuse Seizure disorder History of drug abuse Chlamydia Depression Home Medications ?Medication ?Instructions ?Recorded ?Last Taken ?Type lamotrigine 200 mg tablet 700 mg PO DAILY 06/04/21 06/09/22 08:30 History (Lamictal) cephalexin 500 mg capsule 500 mg PO Q6 #28 CAPSULES 11/12/23 Unknown Rx hydrocodone-acetaminophen 5-325mg 1 tab PO Q6H PRN PRN Pain 3 days 11/12/23 Unknown Rx 5mg-325mg #10 TABLETS Allergy/AdvReac Type Severity Reaction Status Date / Time tomato AdvReac Vomiting Verified 12/31/23 21:27 Family History Other Alcohol abuse Arthritis Depression Seizures Social History Smoking Status: Current every day smoker tobacco type: cigarettes alcohol intake: current alcohol intake frequency: a few times a week details: Hx of alcohol abuse substance use type: does not use, former substance user Date of last use: 2010 , opiates, painkillers and methamphetamine what type of physical activity do you participate in: walking frequency: daily ROS ROS ED Constitutional Constitutional ED: Denies fever(s) Eyes Eyes: Denies change in vision or diplopia ENT ENT ED: Denies ear pain, rhinorrhea or sore throat Cardiovascular Cardiovascular: Denies chest pain, orthopnea, palpitations or racing heartbeat Respiratory/Chest Respiratory/Chest: Denies cough, dyspnea or orthopnea Gastrointestinal Gastrointestinal: Denies abdominal pain, diarrhea, nausea or vomiting Genitourinary Genitourinary ED: Denies dysuria, hematuria or urinary frequency Musculoskeletal Musculoskeletal: Reports extremity pain; Denies neck pain Integumentary Denies abscess or rash Neurologic Neurologic: Denies headache(s) or weakness Psychiatric Psychiatric: Denies anxiety, depression, suicidal ideation or suicidal thoughts Endocrine Endocrinology: Denies polydipsia, polyphagia or polyuria Allergic/Immunologic Allergic/Immunologic ED: Denies mouth swelling, tongue swelling or urticaria EXAM Physical Exam Const Vital Signs: 12/31/23 21:24 Temperature 97.1 F L Temperature Source Temporal Pulse Rate 89 Respiratory Rate 14 Blood Pressure 127/83 H Blood Pressure Mean 97 Pulse Ox 99 Positive well nourished and well developed General Appearance ED: well developed and NAD HEENT Reports moist mucous membranes normocephalic and atraumatic Eyes EOMs intact bilaterally and conjunctivae normal General Eye ED: Yes normal appearance of both eyes Neck no lymphadenopathy and supple General: Negative for tenderness Chest Wall Chest: Negative for tenderness Resp normal respiratory effort and normal air movement Effort and Inspection: symmetric chest movement; Negative for respiratory distress Cardio regular rate, regular rhythm and no murmurs Peripheral Pulses: pulses 2+ throughout GI normal to inspection, nondistended, normoactive bowel sounds and non-tender Palpation: Negative for guarding or rebound tenderness present Back/Spine no CVA tenderness and no thoracic nor lumbar tenderness Extremity Extremity Narrative: Left upper extremity: Tender palpation distal radius no snuffbox tenderness. No swelling. Positive Finklestein's test. No erythema. General Extremety ED: Yes tenderness; Negative for edema General Extremity: Negative for edema Neuro oriented x3 and no sensory deficits noted Sensorium / Orientation: awake and alert Skin no rashes or lesions noted and no wounds MDM MDM MDM Narrative Medical decision making narrative: Interventions / MDM: Differential diagnosis: De Quervain's tenosynovitis Diagnosis considered but do not suspect: Fracture however x-ray negative. My EKG interpretation: N/A Imaging independently reviewed and interpreted by myself: Three-view x-ray left wrist: No acute fracture, small extra ossicle noted ulnar styloid. External documents reviewed: N/A Test considered but not ordered:N/A ED course: Patient clinically with Dequervain's tenosynovitis however she has pain in the distal radius. Will obtain x-rays will start Motrin with plan for thumb spica splint. X-ray negative for acute fractures. Outpatient follow-up given with orthopedics. Re-evaluation: stable Disposition discussed with patient/family/significant other: Patient Case discussed with consulting clinician: N/A This note was generated with [employer] dictation software. It may contain incorrect words, spelling, and punctuation that were not noted in checking the note before signing. History & Record Review Discussion w/independent historian: Patient Radiography Diagnostic Testing: Clinical Impression(s) from Imaging Studies Hand X-Ray 11/12/23 11:23 IMPRESSION: Normal x-ray examination of the hand. Electronically Signed: Jaime Tabor MD at 11:54 EDT , Discharge Plan Triage Chief Complaint: Upper Extremity Injury ED Provider: Stalin Ingram Dx/Rx/DC Orders Clinical Impression: De Quervain's disease (tenosynovitis), Left wrist pain Instructions: ED De Quervain Tenosynovitis Prescriptions: No Action lamotrigine [Lamictal] 200 mg Tablet 700 mg PO DAILY hydrocodone-acetaminophen [hydrocodone-acetaminophen] 5-325 mg tablet 1 tab PO Q6H PRN PRN (Reason: Pain) 3 Days Qty: 10 0RF cephalexin [cephalexin] 500 mg capsule 500 mg PO Q6 Qty: 28 0RF Primary Care Provider: Care Physician,No Primary Referrals: Edwin Bojorquez DO [Med Staff - Active Staff] - 1-2 Weeks Care Physician,No Primary [Primary Care Provider] - Activity Restrictions/Additional Instructions: Keep splint on for comfort. Continue Tylenol or Motrin every 6 hours. Follow- up with Dr. Bojorquez if symptoms do not improve. Print Language: Amharic Disposition Disposition: Home, Self Care Discharge Date/Time: 12/31/23 22:11
--- NOTE | 2023-12-31 21:40 | RAD_ITS ---
STUDY: X-RAY - LEFT WRIST REASON FOR EXAM: Female, 33 years old. pain TECHNIQUE: 3 view(s) of the wrist were obtained. COMPARISON: None. FINDINGS: No definite acute abnormality. Tiny bone density beyond the tip of the ulnar styloid consistent with a previous ununited avulsion fracture. Otherwise normal visualized distal radius and ulna. Normal radiocarpal articulation. Normal distal radioulnar articulation. Normal carpal bones. Normal carpal articulations. Normal carpometacarpal articulation of the thumb. Normal second through fifth carpometacarpal articulations. Normal visualized metacarpal bones. The soft tissue structures are unremarkable. There is no demonstrated acute fracture. RAD/Wrist min 3 Views IMPRESSION: No definite acute or significant abnormality seen. Electronically Signed: Rodríguez Shay MD at 22:51 EDT ,
[2023-12-31 22:03] VITALS: BMI 24.7
[2023-12-31 22:05] VITALS: BP 127/83; PULSE 86; RESP 16; TEMP 36.3; O2SAT 99
[2023-12-31] MEDS: Ibuprofen 600 MG Tablet PO (22:09)
== END 2023-12-31 22:11 | disposition home or self-care (01) ==
PROVIDERS: Emergency Provider Emergency Medicine; Visit Provider Emergency Medicine
DX: M25.532 Pain in left wrist (principal); M65.4 Radial styloid tenosynovitis [de Quervain]; F32.A Depression, unspecified; Z79.899 Other long term (current) drug therapy; F17.210 Nicotine dependence, cigarettes, uncomplicated
CPT/HCPCS: 73110; 99283

== ENCOUNTER 2024-01-06 12:27 | Emergency (ER) | payer MEDICAID, SELFPAY ==
[2024-01-06 12:28] VITALS: BP 117/67; PULSE 97; RESP 14; TEMP 37.1; O2SAT 99; BMI 27.8
== END 2024-01-06 13:50 | disposition left against medical advice (07) ==
LOC: ED 13:54
DX: Z53.21 Procedure and treatment not carried out due to patient leaving prior to being seen by health care provider (principal)

== ENCOUNTER 2024-02-23 13:41 | Emergency (ER) | payer MEDICAID, SELFPAY ==
[2024-02-23 13:42] VITALS: BP 124/75; PULSE 96; RESP 20; TEMP 36.1; O2SAT 100; BMI 28.1
--- NOTE | 2024-02-23 14:05 | RAD_ITS ---
STUDY: X-RAY - LEFT HAND REASON FOR EXAM: Female, 33 years old. Slammed thumb in door TECHNIQUE: 3 view(s) of the hand. COMPARISON: None. FINDINGS: Normal radiocarpal articulation. Normal distal radioulnar joint. Normal visualized carpal bones. Normal carpal articulations Normal carpometacarpal articulation of the thumb. Normal second through fifth carpometacarpal joints. Normal metacarpi. Normal metacarpophalangeal joint of the thumb. Normal interphalangeal joint of the thumb. Normal proximal and distal phalanges of the thumb. Normal metacarpophalangeal joints of the second through fifth fingers. Normal proximal and distal interphalangeal joints of the second through fifth fingers. Normal phalanges of the second through fifth fingers. The soft tissue structures are unremarkable. RAD/Hand Min 3 Views IMPRESSION: Normal x-ray examination of the hand. Electronically Signed: Jaime Tabor MD at 14:46 EDT ,
[2024-02-23] MEDS: HYDROcodone Bitartrate/Apap 5/325 Tablet PO (14:12)
[2024-02-23] MEDS: Ondansetron ODT 4 MG Tablet PO (14:12)
--- NOTE | 2024-02-23 14:46 | EX.ED.UPPERE ---
HPI History of Present Illness HPI Narrative: Patient is a 33-year-old female with a past medical history of substance abuse, depression, seizures who presents to the emergency department chief complaint of left thumb pain. Patient states that yesterday she slammed her thumb in a door and noted that the pain had been increasing throughout the rest the day and worsened today prompting her to come here for further evaluation management. Patient states that she had been taking ibuprofen and Tylenol at home for pain control however this was not helping her symptoms prompting her to come here for further evaluation management. Patient denies any pain anywhere else Chief Complaint: [facility] Extremity [facility] Medical History Vaginal delivery History of pre-term labor Smoking addiction History of substance abuse Seizure disorder History of drug abuse Chlamydia Depression Home Medications ?Medication ?Instructions ?Recorded ?Last Taken ?Type lamotrigine 200 mg tablet 700 mg PO DAILY 06/04/21 06/09/22 08:30 History (Lamictal) Allergy/AdvReac Type Severity Reaction Status Date / Time tomato AdvReac Vomiting Verified 02/23/24 13:42 Family History Other Alcohol abuse Arthritis Depression Seizures Social History Smoking Status: Current every day smoker tobacco type: cigarettes alcohol intake: current alcohol intake frequency: a few times a week details: Hx of alcohol abuse substance use type: does not use, former substance user Date of last use: 2010 , opiates, painkillers and methamphetamine what type of physical activity do you participate in: walking frequency: daily ROS ROS ED ROS Narrative Constitutional: Denies any fevers, chills, headaches, Elias, dizziness Eyes: Denies any change in vision double vision blurry vision Cardiovascular: Denies chest pain Neurological: Denies numbness, he does come tingling Musculoskeletal: Complains of left thumb pain as noted above Skin: Denies rashes or lesions EXAM Physical Exam Narrative Exam Narrative: General: Patient lying in bed rest comfortably did not appear to be in acute distress Head: Atraumatic, normocephalic Eyes: PERRL bilaterally, EOMI bilaterally, no conjunctival injection noted Neck: Soft, supple, trachea midline Cardiovascular: Regular rate and rhythm no murmurs gallops rubs noted Respiratory: Clear to auscultation bilaterally no rales rhonchi or wheezing noted Extremities: +5/5 strength noted in the bilateral upper and lower extremities, no pedal edema on exam, patient was able to get me the okay sign thumbs up sign and oppose her thumb to her pinky bilaterally patient does have a small subungual hematoma that is roughly around 20% of her nail. Neurological: Patient has sensation in the median, ulnar and radial nerve distributions bilaterally. Patient follow commands knew that she was at [facility] year is 2023 Skin: Warm, dry, intact Const Vital Signs: 02/23/24 13:42 Temperature 96.9 F L Temperature Source Temporal Pulse Rate 96 Respiratory Rate 20 H Blood Pressure 124/75 H Blood Pressure Mean 91 Pulse Ox 100 Oxygen Delivery Method Room Air MDM MDM MDM Narrative Medical decision making narrative: Patient is a 33-year-old female who presented to the emergency department with a chief complaint of left thumb pain. She will have x-rays obtained here and then be reevaluated. Patient was given pain meds here. Patient is x-ray reviewed and showed normal examination of the hand. Discussed results with patient and significant other bedside. She was encouraged to ice and use ibuprofen Tylenol [id number] for pain control. She is agreeable this plan she like to go home. She will be referred to a primary care physician. All question concerns answered she was discharged home in stable condition. She was encouraged return with worsening symptoms or other concerns. Discharge Plan Triage Chief Complaint: Upper Extremity Injury ED Provider: Bradley Leach Dx/Rx/DC Orders Clinical Impression: Pain of left thumb Prescriptions: No Action lamotrigine [Lamictal] 200 mg Tablet 700 mg PO DAILY Primary Care Provider: Care Physician,No Primary Referrals: Care Physician,No Primary [Primary Care Provider] - Activity Restrictions/Additional Instructions: Ice, use ibuprofen/Tylenol for pain control. Follow-up with the physician who referred to. Return with worsening symptoms or any other concerns. Print Language: Vietnamese Disposition Disposition: Home, Self Care
[2024-02-23 15:06] VITALS: PULSE 72; RESP 16; TEMP 36.6; O2SAT 97
== END 2024-02-23 15:08 | disposition home or self-care (01) ==
PROVIDERS: Emergency Provider Emergency Medicine; Visit Provider Emergency Medicine
DX: M79.645 Pain in left finger(s) (principal); F17.210 Nicotine dependence, cigarettes, uncomplicated
CPT/HCPCS: 73130; 99283

== ENCOUNTER 2024-11-10 13:27 | Inpatient (IN) | payer SELFPAY ==
[2024-11-10 13:28] VITALS: BP 146/76; PULSE 112; RESP 16; TEMP 36.8; O2SAT 96; BMI 33.6
--- NOTE | 2024-11-10 13:43 | EDS_ITS ---
HPI History of Present Illness Chief Complaint: Substance Abuse Informant: patient Onset/Context/Timing Onset: Yesterday Context: Gradual Onset Timing: Continuous Worsened by: Nothing Relieved by: Nothing Associated Symptoms Associated Symptoms: Negative for vomiting*, diarrhea*, fever*, rash*, seizure, tremor, palpatations, change in mental status or no Narrative Narrative: Patient presents requesting detox from alcohol. Patient states she drinks half a bottle of hard liquor per day. Patient states her last drink was last evening. Patient states she has never been to detox before. Patient denies any chance of . Patient denies any suicidal homicidal ideations. Patient denies any seizures or tremors. Patient denies any nausea, vomiting, or diarrhea. Patient denies any fevers or chills. [facility] Medical History IUD (intrauterine device) in place Alcohol abuse Obesity Anxiety and depression History of chlamydia infection Tobacco use History of pre-term labor History of substance abuse Seizure disorder Home Medications ?Medication ?Instructions ?Recorded ?Last Taken ?Type clobazam 10 mg tablet 10 mg PO BID 11/10/24 History lamotrigine 200 mg tablet,extended 800 mg PO 1700 10/2411/09/24 History release 24 hr Allergy/AdvReac Type Severity Reaction Status Date / Time tomato AdvReac Vomiting Verified 11/10/24 13:28 Family History (Updated 11/10/24 @ 14:[address] Caro Chavez MD) Father Alcohol abuse Cataract Mother Seizures Surgical History No history of previous surgery Social History household members: spouse Smoking Status: Current every day smoker tobacco type: cigarettes alcohol intake: current alcohol intake frequency: 3 or more drinks per day Alcohol type: hard liquor details: 11/10/24 reporting ~ 1/2 bottle liquor daily. substance use type: former substance user Date of last use: Opiates/pain killers, methamphetamine prior, clean since 2010. what type of physical activity do you participate in: walking frequency: daily ROS ROS ED Constitutional Constitutional ED: Denies chills or fever(s) Eyes Eyes: Denies blurry vision or change in vision ENT ENT ED: Denies rhinorrhea or sore throat Cardiovascular Cardiovascular: Denies chest pain or palpitations Respiratory/Chest Respiratory/Chest: Denies cough or dyspnea Gastrointestinal Gastrointestinal: Denies nausea or vomiting Genitourinary Genitourinary ED: Denies dysuria or hematuria Musculoskeletal Musculoskeletal: Denies back pain or neck pain Integumentary Denies abscess or rash Neurologic Neurologic: Denies headache(s) or weakness Psychiatric Psychiatric: Denies depression, suicidal ideation or suicidal thoughts Allergic/Immunologic Allergic/Immunologic ED: Denies mouth swelling or urticaria EXAM Physical Exam Const Vital Signs: 11/10/24 13:28 Temperature 98.2 F Temperature Source Temporal Pulse Rate 112 H Respiratory Rate 16 Blood Pressure 146/76 H Blood Pressure Mean 99 Pulse Ox 96 Oxygen Delivery Method Room Air Positive well nourished and well developed Constitutional Narrative: BMI is 33.7. General Appearance ED: well developed and NAD HEENT Reports moist mucous membranes atraumatic Neck supple and no JVD Resp normal respiratory effort and clear to auscultation bilaterally Cardio regular rate and regular rhythm GI soft to palpation, non-tender and non-distended Extremity General Extremety ED: Negative for edema or tenderness General Extremity: Negative for edema Neuro oriented x3, CN's II-XII intact bilaterally and no sensory deficits noted [place] Coma Scale: document GCS findings Spontaneous Obeys Commands Oriented 15 Sensorium / Orientation: alert Speech: speech normal Motor Exam: strength 5/5 throughout Psych mental status grossly normal and thought process normal MDM MDM MDM Narrative Medical decision making narrative: Medical screening labs will be obtained. CBC will be obtained to assess for leukocytosis and anemia. Comprehensive metabolic profile will be obtained to assess for hepatic function, renal function, and electrolyte abnormality. Lipase will be obtained to assess for pancreatitis. Urine drug screen will be obtained to assess for substance abuse. Serum alcohol level will be obtained to assess for alcohol intoxication. Serum BG will be obtained to assess for . Lab Data Attestation: I reviewed the patient's lab results. Lab results narrative: CBC was reviewed and was within limits. Comprehensive metabolic profile was reviewed and was within normal limits. Lipase was reviewed and was normal at 24. Serum hCG was reviewed and was negative. Serum alcohol level was reviewed and was less than 10.1. Urine drug screen is still pending. Management Discussion w/another healthcare provider: Hospitalist Treatment and Re-Evaluation Narrative: Hep-Lock IV was established. Case was discussed with the hospitalist. She will admit the patient to her service. Patient understood and was agreeable with plan. All questions were answered. Discharge Plan Triage Chief Complaint: Substance Abuse ED Provider: Jignesh Fuentes Dx/Rx/DC Orders Clinical Impression: Alcohol withdrawal, Desire for detoxification, Tobacco use Prescriptions: No Action lamotrigine 200 mg tablet extended release 24hr 800 mg PO QHS clobazam 10 mg tablet 10 mg PO BID Patient Comments: Pt only taking once daily Primary Care Provider: Care Physician,No Primary Referrals: Care Physician,No Primary [Primary Care Provider] - Print Language: Moroccan Disposition Disposition: Acute Care Hospital [facility]
[2024-11-10 14:27] VITALS: BP 142/88; PULSE 78; RESP 18; O2SAT 98
[2024-11-10 14:42] LABS: Absolute Lymphocyte Count 2.96 X10^3/uL (0.83-4.51); Absolute Neutrophil Count 6.2 X10^3/uL (2.0-7.7); Eosinophil# 0.24 X10^3/uL; Eosinophils% 2.4 % (0-5); Hematocrit 40.4 % (37-47); Hemoglobin 14.2 g/dL (12.0-15.0); Lymphocyte # 2.96 X10^3/ul (0.83-4.51); Lymphocyte % 29.1 % (19-41); Mean Corp Hgb Conc 35.1 g/dL (32-36); Mean Corpuscular Hgb 33.3 pg (27.0-32.0); Mean Corpuscular Volume 94.8 fL (81-99); Mean Platelet Vol. 8.8 fl (6.2-12.0); Monocyte# 0.66 X10^3/uL; Monocyte% 6.5 % (0-10); NRBC Flagged by Analyzer 0 % (0-5); Neutrophil # 6.16 X10^3/uL (2.7-7.7); Neutrophil % 60.6 % (47-70); Platelet Count 287 K/mm3 (150-450); RBC Distribution Width CV 12.6 % (11.6-14.6); RBC Distribution Width SD 43.9 fl (35.1-43.9); Red Blood Count 4.26 M/mm3 (4.2-5.4); White Blood Count 10.2 K/mm3 (4.4-11.0)
--- NOTE | 2024-11-10 14:43 | PCM.HP.STD ---
HPI - General General Date of Admission: 11/10/24 Date of Service: 11/10/24 Chief Complaint: EtOH detoxification HPI Narrative The patient is a 34 y/o F w/ PMHx: Obesity, Epilepsy, GERD, Anxiety and Depression, Hx STI, Hx Polysubstance abuse, EtOH abuse (1/2 bottle liquor daily) since ~ 16 years old who presents to the [facility] on 11/10/24 w/ last EtOH intake at approximate 2300 the evening prior currently denying any withdrawal symptoms requesting detoxification. She notes that previously when she has gone 2 to 3 days with alcohol she does not have any severe symptoms but has not gone longer than this. Her and her have recently been able to secure home again as they have been homeless unfortunately lost custody of their daughter. They are doing everything in their power they say to be able to stabilize their lives and get their daughter back. Her who is present does not drink any alcohol or use any drugs, clean status. Workup in the ED included T98.2, heart rate 112, BP 146/76, respiratory rate 16, 96% room air, CBC with WC 10.2, hemoglobin 14.2, platelet 287 without marked shift, pending CMP, , UDS, ethyl alcohol level upon requested evaluation of patient. [facility] Medical History IUD (intrauterine device) in place Alcohol abuse Obesity Anxiety and depression History of chlamydia infection Tobacco use History of pre-term labor History of substance abuse Seizure disorder Home Medications ?Medication ?Instructions ?Recorded ?Last Taken ?Type clobazam 10 mg tablet 10 mg PO BID 11/10/24 11/09/24 History lamotrigine 200 mg tablet,extended 800 mg PO 1700 11/10/24 11/09/24 History release 24 hr Allergy/AdvReac Type Severity Reaction Status Date / Time tomato AdvReac Vomiting Verified 11/10/24 13:28 Family History (Updated 11/10/24 @ 14:[address] Caro Chavez MD) Father Alcohol abuse Cataract Mother Seizures Surgical History No history of previous surgery Social History (Updated 11/10/24 @ 14:[address] Caro Chavez MD) household members: spouse Smoking Status: Current every day smoker tobacco type: cigarettes alcohol intake: current alcohol intake frequency: 3 or more drinks per day Alcohol type: hard liquor details: 11/10/24 reporting ~ 1/2 bottle liquor daily. substance use type: former substance user Date of last use: Opiates/pain killers, methamphetamine prior, clean since 2010. what type of physical activity do you participate in: walking frequency: daily ROS ROS Narrative Admission Review of Systems: CONSTITUTIONAL: No weight loss, fever, chills, weakness or fatigue. HEENT: Eyes: No visual loss, blurred vision, double vision or yellow sclerae. Ears, Nose, Throat: No hearing loss, sneezing, congestion, runny nose or sore throat. SKIN: No rash or itching, lesions, wounds. CARDIOVASCULAR: No chest pain, chest pressure or chest discomfort, palpitations, edema, orthopnea, syncopal events. RESPIRATORY: No shortness of breath, cough or sputum, wheezing, hemoptysis. GASTROINTESTINAL: No anorexia, nausea, vomiting or diarrhea, abdominal pain, melena, BRBPR. GENITOURINARY: No dysuria, frequency, urgency or retention. NEUROLOGICAL: + Seizure disorder. No headache, dizziness, syncope, paralysis, ataxia, numbness or tingling in the extremities, focal weakness, change in bowel or bladder control. MUSCULOSKELETAL: + muscle, back pain, joint pain or stiffness. HEMATOLOGIC: No anemia, bleeding or bruising. LYMPHATICS: No enlarged nodes. No history of splenectomy. PSYCHIATRIC: + History of anxiety depression. ENDOCRINOLOGIC: No reports of sweating, cold or heat intolerance. No polyuria or polydipsia. ALLERGIES: No history of asthma, hives, eczema or rhinitis. Vital Signs Vital Signs Vital Signs: 11/10/24 13:28 11/10/24 14:27 Temperature 98.2 F Temperature Source Temporal Pulse Rate 112 H 78 Respiratory Rate 16 18 Blood Pressure 146/76 H 142/88 H Blood Pressure Mean 99 106 Pulse Ox 96 98 Oxygen Delivery Method Room Air Room Air Weight Weight: 228 lb Body Mass Index (BMI) 33.6 Physical Exam Narrative Physical Examination: General: Awake, alert, oriented x 3 and cooperative, seated upright in the ED bed, fatigued appearing but no evident withdrawal symptoms. Skin: Normal color, normal turgor, no icterus, no cyanosis except occasional stage ecchymoses, abrasion. HEENT: AT/NC, EOMI, PERRLA, mildly dry MM, no carotid bruits or JVD noted. Lungs: CTA bilaterally, moderate effort, mild decrease BL bases, no rales, ronchi or wheezing. Heart: Mildly tachycardic with regular rhythm; no gallop, rub audible. Abdomen: Soft, obese, NTTP, ND, mildly hyperactive BS, no markedly appreciated HSM. Extremities: No cyanosis, clubbing, or edema. Neurological: Patient awake, alert, oriented as noted, cognitive function intact; pupils equally reactive to light and accommodation, cranial nerves grossly normal, moving all 4 extremities, no focal deficits, strength preserved, no evidence of any withdrawal symptoms including tactile disturbance/tremors. Psychiatric: Affect appears fatigued, no acute evidence of depressive or anxiety feelings but does have underlying history. Results Lab / Micro Data 11/10/24 14:26 11/10/24 14:26 Labs: Laboratory Results - last 24 hr 11/10/24 14:26: WBC 10.2, RBC 4.26, Hgb 14.2, Hct 40.4, MCV 94.8, MCH 33.3 H, MCHC 35.1, RDW Std Deviation 43.9, RDW Coeff of Abiodun 12.6, Plt Count 287, MPV 8.8, Immature Gran % (Auto) 0.400, Neut % (Auto) 60.6, Lymph % (Auto) 29.1, [place] % (Auto) 6.5, Eos % (Auto) 2.4, Baso % (Auto) 1.0, Absolute Neuts (auto) 6.2, Absolute Lymphs (auto) 2.96, Nucleated RBC % 0 Assessment & Plan Assessment/Plan (1) Admitted to alcohol detoxification center: PLAN: Plan The patient is a 34 y/o F w/ PMHx: Obesity, Epilepsy, GERD, Anxiety and Depression, Hx STI, Hx Polysubstance abuse, EtOH abuse (1/2 bottle liquor daily) since ~ 16 years old who presents to the [facility] on 11/10/24 w/ last EtOH intake at approximate 2300 the evening prior currently denying any withdrawal symptoms requesting detoxification. #1. EtOH abuse with impending acute EtOH Withdrawal: Currently patient without withdrawal symptoms but from discussion she can go 1 to 2 days at least without symptom onset. Routine labs obtained in the ED upon presentation and pending upon request evaluation of patient. As long as urine is negative, given interest in sobriety will pursue admission otherwise if positive would require transition to an alternate facility, will initiate and continue on protocol with taper course of Phenobarbital, as needed gabapentin, Catapres, Bentyl, Vistaril, IV fluids, IV antiemetics, Tylenol as needed for pain. Will consult Case management for assistance for transition to next level of rehabilitation care. Mag, phos pending. Maintain on CIWA protocol concurrently. #2. Former polysubstance abuse: Reports previous history of opiates, painkillers, methamphetamine, denies usage since 2010, UDS pending. Encouraged continued clean status. #3. Seizure disorder, epilepsy: Will continue patient on lamotrigine and clobazam regimen, encourage follow-up with neurology as previously arranged. #4. Tobacco Abuse: Encouraged cessation, inpatient consultation per RT, NR if desired. #5. Anxiety and depression: Likely heavily contributing to her substance abuse, 180/case management consulted, would benefit from ongoing counseling/evaluation, potential medication. #6. Obesity: Weight loss and lifestyle changes encouraged. #7. GERD: Not on regimen, will have as needed Mylanta. #8. DVT prophylaxis: Low risk for type of presentation, encourage ambulation. Charges/Coding Visit Charges Inpatient E&M: 44174 Init Hosp L2
[2024-11-10 15:00] VITALS: BP 117/74; PULSE 78; RESP 19; O2SAT 98
[2024-11-10 15:07] LABS: ALB/GLOB Ratio 1.8 RATIO (0.9-2.4); AST(SGOT) 24 U/L (<=31); Alanine Aminotransfer ALT/SGPT 23 U/L (<=34); Albumin, Serum 4.5 g/dL (3.5-5.0); Alcohol, Blood (Medical)-Serum < 10.1 mg/dL (<=10.0); Alkaline Phosphatase 84 U/L (35-104); Anion Gap 10 (5-15); BUN 11 mg/dL (4-19); BUN/Creat Ratio 13.4 RATIO (10-20); Calcium,Total 9.3 mg/dL (7.6-11.0); Carbon Dioxide 22.6 mmol/L (21.0-32.0); Chloride 104 mmol/L (98-108); EST Glomerular Filtration Rate 99 (>60); Estimated Creatinine Clearance 126.84 ml/min (50-250); Globulin 2.4 g/dL (2.2-4.2); Glucose 91 mg/dL (70-99); Lipase 24 U/L (13-75); Protein, Total 6.9 g/dL (5.9-8.4); Sodium Level 136 mmol/L (133-145); Total Bilirubin 0.53 mg/dL (0.00-1.30)
[2024-11-10 15:09] LABS: Internal QC Validated? YES +Cl - CLEAR BKGD; Pregnancy, Serum, hCG Quali. NEGATIVE Negative
[2024-11-10 15:37] LABS: Amphetamine Urine NEGATIVE (<1000 ng/mL); Barbiturate Urine NEGATIVE (< 200 ng/mL); Benzodiazepine Urine PRESUMPTIVE POSITIVE (< 200 ng/mL); Buprenorphine Urine NEGATIVE (< 200 ng/mL); Cocaine Urine NEGATIVE (< 300 ng/mL); Fentanyl, Urine NEGATIVE; Methadone Urine NEGATIVE (< 300 ng/mL); Opiates Urine NEGATIVE (< 300 ng/mL); Oxycodone, Urine NEGATIVE (< 100 ng/mL); PCP Urine NEGATIVE (< 25 ng/mL); THC Urine NEGATIVE (< 50 ng/mL)
[2024-11-10 16:02] LABS: Magnesium 2.2 mg/dL (1.5-2.2); Phosphorus 2.2 mg/dL (2.7-4.5)
[2024-11-10 16:35] VITALS: BP 126/68; PULSE 74; RESP 18; TEMP 36.7; O2SAT 97
[2024-11-10 16:50] VITALS: BMI 77.4
[2024-11-10 17:01] VITALS: BP 128/74; PULSE 82; RESP 18; TEMP 36.7; O2SAT 100
[2024-11-10] MEDS: Lactated Ringers 1,000 ML 125 ML IV (17:11)
[2024-11-10] MEDS: LAMOTRIGINE 200 MG 800 MG PO (19:10)
[2024-11-10 21:12] VITALS: BP 128/81; PULSE 83; RESP 14; TEMP 36.4; O2SAT 100
[2024-11-10] MEDS: cloBAZam 10 MG TABLET PO (21:24)
[2024-11-11] VITALS (7 sets, daily range): BP systolic 111–117; BP diastolic 56–69; PULSE 75–90; RESP 16–18; TEMP 36.5–37.1; O2SAT 93–100
[2024-11-11] MEDS: Folic Acid 1 MG Tablet PO (07:58)
[2024-11-11] MEDS: Multivitamins,Ther W-Minerals Tablet 1 TABLET PO (07:58)
[2024-11-11] MEDS: Thiamine Hydrochloride 100 MG Tablet PO (07:58)
--- NOTE | 2024-11-11 08:59 | CASEMGMT ---
Social Work SW met w/pt initially regarding self pay status, and also then to complete SDOH. Pt does not have insurance, states lost insurance when lost custody of her daughter about a year ago. SW offered support to pt around this. Pt does work, so has been over income for [employer]. Pt has been paying for medication out of pocket. Pt would be interested in applying for Medicaid. SW provided resources to pt including [employer] card and phone number, [facility] assist, prescription assist, [employer] and [employer]. SW also gave pt a Medicaid application, offered to have Neelima from [employer] follow up w/her, she is agreeable. Email sent to Neelima to follow up w/pt. SW also did offer MH resources, pt declined. SDOH also triggered for concerns regarding housing. However pt was recently without housing, has now secured housing and has no concerns at this time, so no resources needed in regard to this. SW remains available for any additional support or resources. JAVIER Arvizu
--- NOTE | 2024-11-11 09:05 | PCM.PN.HOSP ---
Subjective Subjective Doing well, no issues overnight. CIWA score of 0 Objective Data Objective Data Vital Signs: Vital Signs Temp Pulse Resp BP Pulse Ox O2 Del Method 97.7 F L 90 16 111/56 L 93 Room Air 11/11/24 05:34 11/11/24 07:52 11/11/24 05:34 11/11/24 05:34 11/11/24 07:43 11/11/24 07:43 Oxygen Delivery Method Room Air Weight: 524 lb 4.148 oz Body Mass Index (BMI) 77.4 Intake & Output: Intake and Output for Last 24 Hours 11/10/24 11/11/24 11/12/24 03:59 03:59 03:59 Intake Total 600 / 600 1350 / 1350 Balance 600 / 600 1350 / 1350 Lab / Micro Data 11/10/24 14:26 11/10/24 14:26 Labs: Laboratory Results - last 24 hr 11/10/24 14:26: WBC 10.2, RBC 4.26, Hgb 14.2, Hct 40.4, MCV 94.8, MCH 33.3 H, MCHC 35.1, RDW Std Deviation 43.9, RDW Coeff of Abiodun 12.6, Plt Count 287, MPV 8.8, Immature Gran % (Auto) 0.400, Neut % (Auto) 60.6, Lymph % (Auto) 29.1, [place] % (Auto) 6.5, Eos % (Auto) 2.4, Baso % (Auto) 1.0, Absolute Neuts (auto) 6.2, Absolute Lymphs (auto) 2.96, Nucleated RBC % 0, Sodium 136, Potassium 4.0, Chloride 104, Carbon Dioxide 22.6, Anion Gap 10, BUN 11, Creatinine 0.80, Estim Creat Clear Calc 126.84, Est GFR (MDRD) Non-Af 99, BUN/Creatinine Ratio 13.4, Glucose 91, Calcium 9.3, Phosphorus 2.2 L, Magnesium 2.2, Total Bilirubin 0.53, AST 24, ALT 23, Alkaline Phosphatase 84, Total Protein 6.9, Albumin 4.5, Globulin 2.4, Albumin/Globulin Ratio 1.8, Lipase 24, Serum , Qual NEGATIVE, Urine Opiates Screen NEGATIVE, U Buprenorphine Qual NEGATIVE, Ur Oxycodone Screen NEGATIVE, Urine Methadone Screen NEGATIVE, Urine Fentanyl Screen NEGATIVE, Ur Barbiturates Screen NEGATIVE, Ur Phencyclidine Scrn NEGATIVE, Ur Amphetamines Screen NEGATIVE, U Benzodiazepines Scrn PRESUMPTIVE POSITIVE, Urine Cocaine Screen NEGATIVE, U Cannabinoids Screen NEGATIVE, Ethyl Alcohol < 10.1 Physical Exam Narrative General: Alert, Oriented x3, Cooperative, No apparent distress HEENT: Atraumatic, PERRLA, EOMI, Normocephalic Oral: Moist Mucosa Neck: Supple, No JVD Lungs: Clear to auscultation, Normal air movement, No rhonchi, No wheeze, No rales Cardiovascular: Regular rate, Regular Rhythm, Normal S1, Normal S2, No murmurs Abdomen: Soft, Non Tender, Non-Distended, No Hepato-splenomegaly Extremities: No edema, Capillary Refill Less than 3 Seconds Skin: No rashes, No breakdown Musculoskeletal: No Tenderness to Palpation of Joints or Extremities Neurological: No focal neurological deficits, Motor Exam 5/5 strength throughout, Sensory exam intact to light touch and pain Psych/Mental Status: Normal Affect, Appropriate Assessment & Plan Assessment/Plan (1) Admitted to alcohol detoxification center: PLAN: Plan 1. Alcohol abuse requesting detox/tobacco abuse/anxiety/depression ? Continue with the alcohol withdrawal protocol ? Will have her follow-up with 180 to develop a treatment plan on discharge ? Discussed tobacco cessation, can provide nicotine replacement if necessary 2. Seizure disorder ? Continue with her home Lamictal and clobazam ? Stable DVT: Ambulation Charges/Coding Visit Charges Inpatient E&M: 75480 Subs Hosp L2
--- NOTE | 2024-11-11 13:20 | ADDICTION ---
This technical writer and editor met with PT to conduct ASAM, MSE, AUDIT assessments and to plan for d/c. PT A+Ox4 and participated actively. All assessments completed. [facility]. PT did not indicate a need for transportation post d/c from [facility].
[2024-11-11] MEDS: LAMOTRIGINE 200 MG 800 MG PO (16:24)
[2024-11-11] MEDS: cloBAZam 10 MG TABLET PO (21:27)
[2024-11-12 03:32] VITALS: BP 103/53; PULSE 80; RESP 16; TEMP 36.6; O2SAT 95
[2024-11-12 07:50] VITALS: O2SAT 96
[2024-11-12 09:13] VITALS: BP 108/52; PULSE 73; RESP 18; TEMP 36.3; O2SAT 97
[2024-11-12] MEDS: Folic Acid 1 MG Tablet PO (09:15)
[2024-11-12] MEDS: Thiamine Hydrochloride 100 MG Tablet PO (09:15)
[2024-11-12] MEDS: Multivitamins,Ther W-Minerals Tablet 1 TABLET PO (09:15)
--- NOTE | 2024-11-12 09:15 | PCM.PN.HOSP ---
Subjective Subjective CIWA score of 1 overnight Objective Data Objective Data Vital Signs: Vital Signs Temp Pulse Resp BP Pulse Ox O2 Del Method 97.3 F L 73 18 108/52 L 97 Room Air 11/12/24 09:13 11/12/24 09:13 11/12/24 09:13 11/12/24 09:13 11/12/24 09:13 11/12/24 09:13 Oxygen Delivery Method Room Air Weight: 524 lb 4.148 oz Body Mass Index (BMI) 77.4 Intake & Output: Intake and Output for Last 24 Hours 11/11/24 11/12/24 11/13/24 03:59 03:59 03:59 Intake Total 600 / 600 1550 / 1550 200 / 200 Balance 600 / 600 1550 / 1550 200 / 200 Lab / Micro Data 11/10/24 14:26 11/10/24 14:26 Physical Exam Narrative General: Alert, Oriented x3, Cooperative, No apparent distress HEENT: Atraumatic, PERRLA, EOMI, Normocephalic Oral: Moist Mucosa Neck: Supple, No JVD Lungs: Clear to auscultation, Normal air movement, No rhonchi, No wheeze, No rales Cardiovascular: Regular rate, Regular Rhythm, Normal S1, Normal S2, No murmurs Abdomen: Soft, Non Tender, Non-Distended, No Hepato-splenomegaly Extremities: No edema, Capillary Refill Less than 3 Seconds Skin: No rashes, No breakdown Musculoskeletal: No Tenderness to Palpation of Joints or Extremities Neurological: No focal neurological deficits, Motor Exam 5/5 strength throughout, Sensory exam intact to light touch and pain Psych/Mental Status: Normal Affect, Appropriate Assessment & Plan Assessment/Plan (1) Admitted to alcohol detoxification center: PLAN: Plan 1. Alcohol abuse requesting detox/tobacco abuse/anxiety/depression ? Continue with the alcohol withdrawal protocol ? Will have her follow-up with 180 to develop a treatment plan on discharge ? Discussed tobacco cessation, can provide nicotine replacement if necessary 2. Seizure disorder ? Continue with her home Lamictal and clobazam ? Stable DVT: Ambulation Charges/Coding Visit Charges Inpatient E&M: 37549 Subs Hosp L2
--- NOTE | 2024-11-12 12:41 | NURSING ---
Pt notified this nurse of the desire to leave. Pt advise about AMA papers and pt agreed to sign.
== END 2024-11-12 12:53 | disposition left against medical advice (07) | DRG 894 ==
LOC: ED 15:34 → MS3 16:11
PROVIDERS: Admitting Provider Family Medicine; Emergency Provider Emergency Medicine; Visit Provider Family Medicine
DX: F10.139 Alcohol abuse with withdrawal, unspecified (principal); E66.9 Obesity, unspecified; G40.909 Epilepsy, unspecified, not intractable, without status epilepticus; F32.A Depression, unspecified; F17.210 Nicotine dependence, cigarettes, uncomplicated; F41.9 Anxiety disorder, unspecified; Z68.33 Body mass index [BMI] 33.0-33.9, adult; Y90.0 Blood alcohol level of less than 20 mg/100 ml
CPT/HCPCS: 80053; 80307; 82077; 83690; 83735; 84100; 84703; 85025; 97802; 99283; A4216

== ENCOUNTER 2024-11-30 14:46 | Emergency (ER) | payer SELFPAY ==
[2024-11-30 14:47] VITALS: BP 132/82; PULSE 96; RESP 15; TEMP 36.3; O2SAT 100; BMI 32.9
--- NOTE | 2024-11-30 15:34 | EX.ED.DYSGE1 ---
HPI History of Present Illness Chief Complaint: Seizure Informant: patient and spouse/S.O. Narrative Narrative: 34-year-old female with history of epilepsy presenting to the emergency room for seizure. Patient reportedly was at work when she had a seizure lasting 10 to 15 minutes per coworkers. He was described as her staring off and she remained standing. She states that she generally has generalized seizures. Patient states that she saw neurology in [place] in October of this year. She states that they added in a new medication but she cannot recall the name of it (clobazam). She also takes lamotrigine. Patient denies any recent infections fevers. She denies any injury from today's seizure. She states that she really did not feel like she needed to be here but employer wanted her to have the rest the day off and to be evaluated and her significant other wanted her to be evaluated. [facility] Medical History IUD (intrauterine device) in place Alcohol abuse Obesity Anxiety and depression History of chlamydia infection Tobacco use History of pre-term labor History of substance abuse Seizure disorder Home Medications ?Medication ?Instructions ?Recorded ?Last Taken ?Type clobazam 10 mg tablet 10 mg PO BID 11/10/24 11/29/24 History lamotrigine 200 mg tablet,extended 800 mg PO 1700 11/10/24 11/29/24 History release 24 hr Allergy/AdvReac Type Severity Reaction Status Date / Time tomato AdvReac Vomiting Verified 11/30/24 14:50 Family History Father Alcohol abuse Cataract Mother Seizures Surgical History No history of previous surgery Social History household members: spouse Smoking Status: Light Smoker (<10/day) alcohol intake: current alcohol intake frequency: 3 or more drinks per day Alcohol type: hard liquor details: 11/10/24 reporting ~ 1/2 bottle liquor daily. substance use type: former substance user Date of last use: Opiates/pain killers, methamphetamine prior, clean since 2010. what type of physical activity do you participate in: walking frequency: daily ROS ROS ED Constitutional Constitutional ED: Denies chills, fever(s) or weight loss Eyes Eyes: Denies change in vision or diplopia ENT ENT ED: Denies ear pain, rhinorrhea or sore throat Cardiovascular Cardiovascular: Denies chest pain, orthopnea, palpitations or racing heartbeat Respiratory/Chest Respiratory/Chest: Denies cough, dyspnea or orthopnea Gastrointestinal Gastrointestinal: Denies abdominal pain, diarrhea, nausea or vomiting Genitourinary Genitourinary ED: Denies dysuria, hematuria or urinary frequency Musculoskeletal Musculoskeletal: Denies arthralgias or myalgias Integumentary Denies abscess or rash Neurologic Neurologic: Reports other Details: Seizure ; Denies headache(s) or weakness Psychiatric Psychiatric: Denies anxiety, depression, suicidal ideation or suicidal thoughts Endocrine Endocrinology: Denies polydipsia, polyphagia or polyuria Allergic/Immunologic Allergic/Immunologic ED: Denies mouth swelling, tongue swelling or urticaria EXAM Physical Exam Const Vital Signs: 11/30/24 14:47 11/30/24 15:46 11/30/24 16:00 Temperature 97.4 F L Temperature Source Temporal Pulse Rate 96 84 79 Respiratory Rate 15 15 Blood Pressure 132/82 H 122/64 H 100/58 L Blood Pressure Mean 98 83 72 Pulse Ox 100 100 Oxygen Delivery Method Room Air Room Air Positive well nourished and well developed General Appearance ED: well developed HEENT Reports normocephalic, head/scalp atraumatic and moist mucous membranes Eyes PERRL and EOMs intact bilaterally Neck no lymphadenopathy, supple and no JVD Resp normal respiratory effort and clear to auscultation bilaterally Cardio regular rate, regular rhythm and no murmurs GI normal to inspection, nondistended, normoactive bowel sounds and non-tender Palpation: soft Back/Spine no CVA tenderness and normal ROM Extremity normal to inspection General Extremety ED: Negative for edema General Extremity: Negative for edema Neuro oriented x3, CN's II-XII intact bilaterally and no sensory deficits noted Sensorium / Orientation: alert Motor Exam: strength 5/5 throughout Psych mental status grossly normal Mood & Affect: Negative for depressed or tearful Skin no rashes or lesions noted and no wounds MDM MDM MDM Narrative Medical decision making narrative: Differential diagnosis includes but not limited to epilepsy generalized seizure absence seizure infection liver and renal dysfunction electrolyte abnormality UTI. Seizure precautions were placed patient was on the monitor. Basic blood work is rather unremarkable test is negative. Urinalysis shows no overt infection white count is nonspecifically elevated 11.3 normal liver and BMP glucose 92. Patient appears at neurologic baseline. I think she can be discharged home. I sent a Lamictal level which will not be back to date. She can check her results through the [employer] william and I would also recommend that she contact her neurologist. History & Record Review Discussion w/independent historian: Patient and Significant other Additional record(s) reviewed:: Prior ED visit and Prior labs Lab Data Attestation: I reviewed the patient's lab results. Labs: Laboratory Results - last 24 hr 11/30/24 11/30/24 15:40 15:45 WBC 11.3 H RBC 4.36 Hgb 14.6 Hct 41.8 MCV 95.9 MCH 33.5 H MCHC 34.9 RDW Std Deviation 42.5 RDW Coeff of Abiodun 12.0 Plt Count 287 MPV 9.1 Immature Gran % (Auto) 0.200 Neut % (Auto) 65.2 Lymph % (Auto) 24.0 [place] % (Auto) 7.3 Eos % (Auto) 2.9 Baso % (Auto) 0.4 Absolute Neuts (auto) 7.4 Absolute Lymphs (auto) 2.72 Nucleated RBC % 0 Sodium 139 Potassium 3.7 Chloride 104 Carbon Dioxide 24.6 Anion Gap 10 BUN 10 Creatinine 0.72 Estim Creat Clear Calc 139.36 Est GFR (MDRD) Non-Af 112 BUN/Creatinine Ratio 13.9 Glucose 92 Calcium 9.4 Total Bilirubin 0.35 AST 17 ALT 17 Alkaline Phosphatase 75 Total Protein 7.1 Albumin 4.5 Globulin 2.6 Albumin/Globulin Ratio 1.7 Serum , Qual NEGATIVE Urine Color Yellow Urine Clarity Clear Urine pH 6.5 Ur Specific Cody 1.015 Urine Protein 30 H Urine Glucose (UA) Normal Urine Ketones Negative Urine Occult Blood 10 H Urine Nitrite Negative Urine Bilirubin Negative Urine Urobilinogen Normal Ur Leukocyte Esterase Negative Urine RBC 0-5 SEEN Urine WBC 0-5 SEEN Ur Squamous Epith Cells 0-5 SEEN Urine Bacteria 0 SEEN Urine Mucus 0 SEEN Discharge Plan Triage Chief Complaint: Seizure ED Provider: Maurisio Richards Dx/Rx/DC Orders Clinical Impression: Epileptic seizure Instructions: ED Seizure, Recurrent (Adult) Prescriptions: No Action lamotrigine 200 mg tablet extended release 24hr 800 mg PO 1700 clobazam 10 mg tablet 10 mg PO BID Patient Comments: Pt only taking once daily AT 2300 PER MD Primary Care Provider: Care Physician,No Primary Referrals: Care Physician,No Primary [Primary Care Provider] - Activity Restrictions/Additional Instructions: Please inform your neurologist of your ED visit. As we discussed I sent a Lamictal level which will not come back today but they can certainly follow-up on the results. Please continue to take your home medications. Print Language: Serbian Disposition Disposition: Home, Self Care
[2024-11-30 15:46] VITALS: BP 122/64; PULSE 84
[2024-11-30 15:52] LABS: Bacteria 0 SEEN /hpf (None Seen); Mucous, Urine 0 SEEN /hpf (<or=2+)
[2024-11-30 15:54] LABS: Absolute Lymphocyte Count 2.72 X10^3/uL (0.83-4.51); Absolute Neutrophil Count 7.4 X10^3/uL (2.0-7.7); Basophil# 0.05 X10^3/uL; Basophil% 0.4 % (0-1); Eosinophil# 0.33 X10^3/uL; Eosinophils% 2.9 % (0-5); Hematocrit 41.8 % (37-47); Hemoglobin 14.6 g/dL (12.0-15.0); Lymphocyte # 2.72 X10^3/ul (0.83-4.51); Mean Corp Hgb Conc 34.9 g/dL (32-36); Mean Corpuscular Hgb 33.5 pg (27.0-32.0); Mean Corpuscular Volume 95.9 fL (81-99); Mean Platelet Vol. 9.1 fl (6.2-12.0); Monocyte# 0.83 X10^3/uL; Monocyte% 7.3 % (0-10); NRBC Flagged by Analyzer 0 % (0-5); Neutrophil # 7.38 X10^3/uL (2.7-7.7); Neutrophil % 65.2 % (47-70); Platelet Count 287 K/mm3 (150-450); RBC Distribution Width SD 42.5 fl (35.1-43.9); Red Blood Count 4.36 M/mm3 (4.2-5.4); White Blood Count 11.3 K/mm3 (4.4-11.0)
[2024-11-30 16:00] VITALS: BP 100/58; PULSE 79; RESP 15; O2SAT 100
[2024-11-30 16:02] LABS: Color, Urine Yellow (Yellow); Glucose, Dipstick Normal (Normal); Ketone-Dipstick Negative (Negative); Leukocyte Esterase-Dipstick Negative /ul (Negative); Nitrite-Dipstick Negative (Negative); Occult Blood-Urine 10 /ul (Negative); Protein-Dipstick 30 mg/dl (Negative); Specific Gravity, Urine 1.015 (1.002-1.030); Urine Bilirubin Dipstick Negative (Negative); Urine Clarity Clear (Clear); Urine Urobilinogen Normal (Normal); Urine pH 6.5 (5.0 - 8.0)
[2024-11-30 16:15] LABS: ALB/GLOB Ratio 1.7 RATIO (0.9-2.4); AST(SGOT) 17 U/L (<=31); Alanine Aminotransfer ALT/SGPT 17 U/L (<=34); Albumin, Serum 4.5 g/dL (3.5-5.0); Alkaline Phosphatase 75 U/L (35-104); Anion Gap 10 (5-15); BUN 10 mg/dL (4-19); BUN/Creat Ratio 13.9 RATIO (10-20); Calcium,Total 9.4 mg/dL (7.6-11.0); Carbon Dioxide 24.6 mmol/L (21.0-32.0); Chloride 104 mmol/L (98-108); Creatinine, Serum 0.72 mg/dL (0.70-1.20); EST Glomerular Filtration Rate 112 (>60); Estimated Creatinine Clearance 139.36 ml/min (50-250); Globulin 2.6 g/dL (2.2-4.2); Glucose 92 mg/dL (70-99); Potassium 3.7 mmol/L (3.3-5.1); Protein, Total 7.1 g/dL (5.9-8.4); Sodium Level 139 mmol/L (133-145); Total Bilirubin 0.35 mg/dL (0.00-1.30)
[2024-11-30 16:24] LABS: Internal QC Validated? YES +Cl - CLEAR BKGD; Pregnancy, Serum, hCG Quali. NEGATIVE Negative; Record Kit Lot#, Serum Preg. 929381
[2024-11-30 16:32] LABS: Red Blood Cells-Urine 0-5 SEEN /hpf (0-5); Squamous Epithelial Cells - UA 0-5 SEEN /hpf (5-10); White Blood Cells 0-5 SEEN /hpf (0-5)
[2024-11-30 16:44] VITALS: BP 102/71; PULSE 78; RESP 16; TEMP 36.3; O2SAT 98
[2024-11-30 18:24] LABS: Alcohol, Blood (Medical)-Serum < 10.1 mg/dL (<=10.0)
[2024-11-30 18:26] LABS: Amphetamine Urine NEGATIVE (<1000 ng/mL); Barbiturate Urine NEGATIVE (< 200 ng/mL); Benzodiazepine Urine PRESUMPTIVE POSITIVE (< 200 ng/mL); Buprenorphine Urine NEGATIVE (< 200 ng/mL); Cocaine Urine NEGATIVE (< 300 ng/mL); Fentanyl, Urine NEGATIVE; Methadone Urine NEGATIVE (< 300 ng/mL); Opiates Urine NEGATIVE (< 300 ng/mL); Oxycodone, Urine NEGATIVE (< 100 ng/mL); PCP Urine PRESUMPTIVE POSITIVE (< 25 ng/mL); THC Urine NEGATIVE (< 50 ng/mL)
== END 2024-11-30 16:46 | disposition home or self-care (01) ==
PROVIDERS: Emergency Provider Emergency Medicine; Visit Provider Emergency Medicine
DX: G40.909 Epilepsy, unspecified, not intractable, without status epilepticus (principal); F17.200 Nicotine dependence, unspecified, uncomplicated; Z79.899 Other long term (current) drug therapy
CPT/HCPCS: 80053; 80307; 81001; 82077; 82542; 84703; 85025; 99283; A4216

== ENCOUNTER 2025-01-01 08:39 | Emergency (ER) | payer SELFPAY ==
[2025-01-01 08:39] VITALS: BP 139/73; PULSE 101; RESP 22; TEMP 36.1; O2SAT 99; BMI 35.4
--- NOTE | 2025-01-01 08:56 | EKG12_ITS ---
Test Reason : SEIZURE Blood Pressure : */* mmHG Vent. Rate : 89 BPM Atrial Rate : 89 BPM P-R Int : 142 ms QRS Dur : 84 ms QT Int : 350 ms P-R-T Axes : 41 65 27 degrees QTcB Int : 425 ms Normal sinus rhythm Normal ECG Confirmed by Alberto Hummel ([id number]), commissioning editor FILIPPO GUEVARA ([id number]) on 01/02/2025 6:14:23 AM Referred By: YARY Confirmed By: Alberto Hummel
--- NOTE | 2025-01-01 09:05 | EDS_ITS ---
HPI History of Present Illness Chief Complaint: Seizure Narrative Narrative: Chief complaint and HPI: Breakthrough seizure. 34-year-old female with past medical history of epilepsy and alcohol abuse presents for evaluation of breakthrough seizure. Patient states she is currently on parole. States that she was supposed to get a drug test today. It was reported that patient had a seizure in the waiting room. Patient does not know how long the seizure lasted however per report was told a couple of seconds. Seizure aborted on itself. Per EMS no postictal phase. No loss of incontinence or oral trauma. Patient states she feels fine. States she has been taking her medication. She takes 800 mg of lamotrigine at night. States she took it yesterday evening. In October was put on Clobazam by her neurologist in [place] however they are currently weaning this off as this has increased her seizures. She denies any recent alcohol or drug abuse. Denies any fever, chills, URI symptoms, shortness of breath, chest pain abdominal pain, nausea, vomiting, dysuria. Patient had s eizure while sitting in a chair, no reported fall. Review of systems: See HPI Medications: As listed on the chart Allergies: As listed on the chart PFSH: Per chart Vital signs: As listed on the chart. Reviewed. Physical exam: Gen: A&O x3, NAD Head: Normocephalic, atraumatic Eyes: No sclera icterus, conjunctiva clear, PERRL ENT: Moist mucous membranes without oral trauma, multiple facial piercings, face atraumatic Neck: Trachea midline, No JVD, full range of motion, nontender CV: RRR, no murmurs, no peripheral edema Resp: Lungs CTA BL, no w/r/c GI: Abd soft, non-distended, non-tender, no r/r/g Musc: Full ROM, no deformity, strength +5/5 in all extremities Skin: Warm, dry Neuro: Alert, oriented, grossly intact, sensation intact Psych: Cooperative, flat affect [facility] Medical History IUD (intrauterine device) in place Alcohol abuse Obesity Anxiety and depression History of chlamydia infection Tobacco use History of pre-term labor History of substance abuse Seizure disorder Home Medications ?Medication ?Instructions ?Recorded ?Last Taken ?Type clobazam 10 mg tablet 10 mg PO BID 11/10/24 History lamotrigine 200 mg tablet,extended 800 mg PO 1700 10/2411/29/24 History release 24 hr Allergy/AdvReac Type Severity Reaction Status Date / Time tomato AdvReac Vomiting Verified 11/30/24 14:50 Family History Father Alcohol abuse Cataract Mother Seizures Surgical History No history of previous surgery Social History household members: spouse Smoking Status: Light Smoker (<10/day) alcohol intake: current alcohol intake frequency: 3 or more drinks per day Alcohol type: hard liquor details: 11/10/24 reporting ~ 1/2 bottle liquor daily. substance use type: former substance user Date of last use: Opiates/pain killers, methamphetamine prior, clean since 2010. what type of physical activity do you participate in: walking frequency: daily EXAM Physical Exam Const Vital Signs: 01/01/25 08:39 Temperature 97 F L Temperature Source Temporal Pulse Rate 101 H Respiratory Rate 22 H Blood Pressure 139/73 H Blood Pressure Mean 95 Pulse Ox 99 Oxygen Delivery Method Room Air MDM MDM MDM Narrative Medical decision making narrative: 34-year-old female with past medical history of epilepsy and alcohol abuse presents for evaluation of breakthrough seizure. Per report, patient had a seizure while waiting in a waiting room for a drug test. Lasted several minutes. No postictal phase, urinary incontinence, oral trauma. Did not have any injury or fall during the episode. Per EMS, glucose 99. Patient states she has been taking her lamotrigine at night. Weaning off of clobazam per neurologist as this has been increasing seizures. Denies any symptoms. Differential diagnosis includes but is not limited to breakthrough seizure, noncompliance with medication, dehydration, , UTI, substance/alcohol abuse, pseudoseizure. NS bolus ordered. Laboratory workup ordered including urine. I do not think any imaging is needed at this time. Will perform lactic acid as this should be elevated in seizures. Will get lamotrigine level although this will not result for several days. EKG was personally reviewed interpreted by me, ED physician. Normal sinus rhythm, no acute ischemic changes, heart rate 89, normal QTc. Shortly after ordering test. Patient states she wants to discharge home. She is refusing all care. I had a extensive conversation with the patient that I do not know why she had a break through seizure and that choosing to discharge home without further workup may result in permanent bodily harm or . She may have a recurrent breakthrough seizure. I discussed at length that without further evaluation monitoring there may be Rosemary in consult this is a deterioration. She states that she understands the risks and benefits but would like to discharge home. She is alert and orient x 3 and can make her own decisions. She states that she is aware of the serious risks as explained, but would like to discharge home. Patient will be discharged home. Recommend following up with her neurologist. I recommend her making a phone call when she leaves here to let them know she had a breakthrough seizure. Strict return precautions were given. She was educated not to drive until cleared by her neurologist. She confirmed understanding. States she does not drive at baseline. Impression: 1. Reported seizure 2. History of epilepsy Discharge Plan Triage Chief Complaint: Seizure ED Provider: Edvin Barrett Dx/Rx/DC Orders Prescriptions: No Action lamotrigine 200 mg tablet extended release 24hr 800 mg PO 1700 clobazam 10 mg tablet 10 mg PO BID Patient Comments: Pt only taking once daily AT 2300 PER Primary Care Provider: Care Physician,No Primary Referrals: Care Physician,No Primary [Primary Care Provider] - Print Language: Afghan
[2025-01-01 09:19] LABS: Bedside Glucose 99 mg/dL (74-106)
--- NOTE | 2025-01-01 09:24 | ED.RN ---
pt refusing everything, wants to leave
[2025-01-01 09:25] VITALS: BP 138/72; PULSE 87; RESP 14; TEMP 36.6; O2SAT 100
== END 2025-01-01 09:30 | disposition home or self-care (01) ==
LOC: ED 09:28
PROVIDERS: Emergency Provider Surgery; Visit Provider Surgery
DX: R56.9 Unspecified convulsions (principal); F17.200 Nicotine dependence, unspecified, uncomplicated
CPT/HCPCS: 82962; 93005; 99284; A4216

== ENCOUNTER 2025-01-10 19:35 | Emergency (ER) | payer SELFPAY ==
[2025-01-10 19:36] VITALS: BP 139/81; PULSE 110; RESP 18; TEMP 36.7; O2SAT 99; BMI 32.6
[2025-01-10] MEDS: HYDROcodone Bitartrate/Apap 5/325 Tablet PO (20:27)
[2025-01-10 21:28] LABS: Anion Gap 14 (5-15); BUN 7 mg/dL (4-19); BUN/Creat Ratio 8.4 RATIO (10-20); Calcium,Total 9.7 mg/dL (7.6-11.0); Carbon Dioxide 20.5 mmol/L (21.0-32.0); Chloride 103 mmol/L (98-108); Creatinine, Serum 0.87 mg/dL (0.70-1.20); EST Glomerular Filtration Rate 90 (>60); Estimated Creatinine Clearance 114.91 ml/min (50-250); Glucose 88 mg/dL (70-99); Potassium 4.4 mmol/L (3.3-5.1); Sodium Level 137 mmol/L (133-145)
[2025-01-10 21:36] VITALS: BP 113/66; PULSE 83; RESP 13; TEMP 36.6; O2SAT 99
--- NOTE | 2025-01-10 22:19 | EX.ED.DYSGE1 ---
HPI History of Present Illness Chief Complaint: Seizure Detail of Chief Complaint: Generalized tonic-clonic seizure Informant: patient and spouse/S.O. Onset/Context/Timing Onset: Today and Hours Context: Sudden Onset Timing: Intermittent Quality: Generalized tonic-clonic Location: Occurred at work Current Severity: Gone Maximum Severity: Severe Worsened by: Patient discontinued one of her anticonvulsants with the approval of her ne Relieved by: Not applicable Associated Symptoms Associated Symptoms: None other than facial pain. Narrative Narrative: Patient is a 34-year-old woman. She has known seizure disorder. She is seen by a neurologist through the [facility]. She is present on Lamictal. Her other medication was discontinued because it was felt to be causing her to have more seizures. Her last seizure prior to today was a week ago. She complains of facial pain due to the fall. She denies headache. Denies double vision, blurred vision loss of vision. She denies inability to open or close her mouth. Denies neck pain. Denies paresthesia, anesthesia or motor weakness upper or lower extremity. Prior similar symptoms: Yes Recent Illness/Hospitalization: No PFSH PFSH Medical History IUD (intrauterine device) in place Alcohol abuse Obesity Anxiety and depression History of chlamydia infection Tobacco use History of pre-term labor History of substance abuse Seizure disorder Home Medications Medication Instructions Recorded Last Taken Type lamotrigine 200 mg tablet,extended 800 mg PO 1700 11/10/24 11/29/24 History release 24 hr multivitamin (Daily Multi-Vitamin 1 tab PO DAILY 01/10/25 Unknown History tablet) Allergy/AdvReac Type Severity Reaction Status Date / Time tomato AdvReac Vomiting Verified 01/10/25 19:39 Family History Father Alcohol abuse Cataract Mother Seizures Surgical History No history of previous surgery Social History household members: spouse Smoking Status: Light Smoker (<10/day) alcohol intake: current alcohol intake frequency: 3 or more drinks per day Alcohol type: hard liquor details: 11/10/24 reporting ~ 1/2 bottle liquor daily. substance use type: former substance user Date of last use: Opiates/pain killers, methamphetamine prior, clean since 2010. what type of physical activity do you participate in: walking frequency: daily ROS ROS ED Constitutional Constitutional ED: Denies chills, fever(s), subjective or sweats Eyes Eyes: Denies blurry vision or change in vision ENT ENT ED: Reports other Details: Negative dental trauma or epistaxis. Positive bruising left side of face. ; Denies ear pain, rhinorrhea or sore throat Cardiovascular Cardiovascular: Denies chest pain or palpitations Respiratory/Chest Respiratory/Chest: Denies cough, dyspnea or dyspnea on exertion Gastrointestinal Gastrointestinal: Denies abdominal pain, nausea or vomiting Integumentary Reports other Details: Bruise left side of face Neurologic Neurologic: Denies headache(s), paresthesias or weakness Endocrine Endocrinology: Denies cold intolerance or heat intolerance Hematologic/Lymphatic Hematologic/Lymphatic: Reports systems reviewed and no addt'l complaints, except as documented EXAM Physical Exam Const Vital Signs: 01/10/25 19:36 01/10/25 21:36 Temperature 98.1 F 97.8 F Temperature Source Oral Oral Pulse Rate 110 H 83 Respiratory Rate 18 13 Blood Pressure 139/81 H 113/66 Blood Pressure Mean 100 81 Pulse Ox 99 99 Oxygen Delivery Method Room Air Room Air Positive well nourished and well developed Constitutional Narrative: Patient's vitals reveal slight elevation of blood pressure and heart rate. These resolved. General Appearance ED: well developed and NAD; Negative for cyanotic or diaphoretic HEENT Reports moist mucous membranes HEENT Narrative: Patient has bruising over the left maxillary region. There is no evidence of trismus. There is no dental trauma. There is no clinical signs of basilar skull fracture. She has no depression over the zygomatic arch. There is no bruising noted to the skull. Eyes PERRL and EOMs intact bilaterally Eyes Narrative: There is no nystagmus. General Eye ED: Negative for pale conjunctiva or scleral icterus Neck no lymphadenopathy and supple General: Negative for tenderness Resp normal respiratory effort Cardio regular rate and regular rhythm GI normal to inspection, nondistended, normoactive bowel sounds, non-tender, non-distended and no masses; Negative for hepatosplenomegaly Back/Spine no CVA tenderness Extremity normal to inspection General Extremety ED: Negative for tenderness Neuro oriented x3 and CN's II-XII intact bilaterally Neuro Narrative: Patient has no clonus or Babinski sign. There is no dysmetria. There is no sensory or motor deficit. Sensorium / Orientation: alert Psych Mood & Affect: depressed Skin Skin Narrative: Bruising left side of face only. MDM MDM MDM Narrative Medical decision making narrative: Patient with known seizure disorder had seizure. Will obtain BMP to assess electrolytes. Lamictal level was ordered as well. I was informed this is a send out. Her neurologist can follow the level and determine if she needs to increase her Lamictal dose. She was instructed to contact her neurologist for follow-up. History & Record Review Additional record(s) reviewed:: Prior ED visit (Patient was seen January 01 in the ER for breakthrough seizure. He was seen November 30 for breakthrough seizure.) Lab Data Labs: Laboratory Results - last 24 hr 01/10/25 20:22 Sodium 137 Potassium 4.4 Chloride 103 Carbon Dioxide 20.5 L Anion Gap 14 BUN 7 Creatinine 0.87 Estim Creat Clear Calc 114.91 Est GFR (MDRD) Non-Af 90 BUN/Creatinine Ratio 8.4 L Glucose 88 Calcium 9.7 Discharge Plan Triage Chief Complaint: Seizure ED Provider: Olaf Astudillo Dx/Rx/DC Orders Clinical Impression: Breakthrough seizure, Contusion of face Instructions: ED Seizure, Recurrent (Adult) Prescriptions: No Action lamotrigine 200 mg tablet extended release 24hr 800 mg PO 1700 multivitamin [Daily Multi-Vitamin] Tablet 1 tab PO DAILY Stand Alone Forms: ED Work / School Excuse Primary Care Provider: Care Physician,No Primary Referrals: Care Physician,No Primary [Primary Care Provider] - Activity Restrictions/Additional Instructions: Follow-up with your neurologist affiliated with the [facility]. Print Language: Indian Disposition Disposition: Home, Self Care
[2025-01-10 22:23] VITALS: BP 108/64; PULSE 89; RESP 17; TEMP 36.6; O2SAT 98
--- OUTSIDE RECORDS SUMMARY | 2025-01-10 22:52 | XMS RPT_ITS | CCD ---
Author Organization [facility] Care Team Providers Care Linen Manager Name Role Phone PHYSICIAN, NOT RECORDED Primary Care Physician U nicole SALCEDO, Nery Morgan Primary Care Provider [phone] Rojas BOOK OR SCRIPT EDITOR-SAP BASIS ARCHITECT, Crystal G [employer], [facility] Unavailable [phone] Unavailable Primary Care Provider Unavailabl e Rojas BOOK OR SCRIPT EDITOR-SAP BASIS ARCHITECT, Crystal G [employer], [facility] Unavailable PHYSICIAN, NONE Primary Care Physician Unavailab le Unavailable Primary Care Provider UnavailGINETTE Pineda Attending Unavailable MEG ORTEZ Referring Unavailable BECKY JULES Attending Unavailable VIET ESPARZA Attending Unavailable MEG ORTEZ Referring Unavailable MEG ORTEZ Referring Unavailable DYLON MCKENNA DO Attending Unavailable DYLON MCKNENA DO Primary Care Unavailable DYLON MCKENNA DO Admitting Unavailable DR JENA SWANSON MD Attending Unavailabl e PHYSICIAN, NONE Primary Care Unavailable PHYSICIAN, NOT RECORDED Primary Care Unavaila JACOB Livingston DO Attending Unavailable NORMA ECKERT DO Attending Unavailable PHYSICIAN, NONE Primary Care Unavailable ROQUE MEJÍA DO Attending Unavailable PHYSICIAN, NONE Primary Care Unavailable SELF, SELF Referring Unavailable ALISON THAKKAR Attending Unavailable Alison Givens Attending Unavailable Alison Givens Referring Unavailable Care Physician, No Primary Primary Care Unava ilable Care Physician, No Primary Primary Care Unava ilable Bradley Leach Attending Unavailable Caro Chavez Consulting Unavailable Edwin Dumont Attending Unavailable Care Physician, No Primary Primary Care Unava ilable Caro Chavez Admitting Unavailable Kotsonis, Edwin F Consulting Unavailable Caro Chavez Attending Unavailable Caro Chavez L Consulting Unavailable Edwin Dumont Attending Unavailable Care Physician, No Primary Primary Care Unava ilable Caro Chavez Admitting Unavailable Care Physician, No Primary Primary Care Unava ilable Edvin Barrett Attending Unavailabl e Care Physician, No Primary Primary Care Unava ilable Maurisio Richards Attending Unavailable Allergies Allergy Classification Reported Allergen(s) Allergy Type Date of Onset Reaction(s) Facility (11 sources) tomato allergenic extract; Translations: [TOMATO] [facility] ([facility] sources) Cephalexin; Translations: [CEPHALEXIN] Drug Allergy 4 GI [facility] Work Phone: (1 source) + MRSA Wound; Translations: [+ MRSA Wound] Propensity to adverse reactions (disorder) [facility] Repository Medications Current Medications Medication Drug Class(es) Dates Sig (Normalized) Sig (Original) acetaminophen 325 mg / HYDROcodone bitartrate 5 mg oral tablet (1 source) Opioid Agonist Start: 11-14-2023 End: 11-17-2023 take 1 tablet by mouth every six hours as needed for pain [place] 325- 5 mg oral tablet Dose = 1 tab(s), Oral, q6h, PRN as needed for pain, X 3 day(s), # 12 tab(s), 0 Refill(s), Abscess, 78 Start Date: 11/14/23 Stop Date: 11/17/23 Status: Ordered cephalexin 500 mg oral capsule (3 sources) Cephalosporin Antibacterial Start: 09-22-2023 End: 09-27-2023 take 1 capsule by mouth four times daily cephALEXin (KEFLEX) 500 mg capsule Take 1 capsule by mouth four times daily for 5 days. 20 capsule 0 09/22/2023 09/27/2023 Active Comment on above: Take 1 capsule by [facility] four times daily for 5 days. cloBAZam 10 mg oral tablet (1 source) Benzodiazepine Start: 10-05-2024 End: 10-04-2025 take 1 tablet by mouth twice daily cloBAZam 10 MG tablet Indications: Local-rel symptc epi w cmplx prt seiz,not ntrct,w/o stat epi Take 1 tablet by mouth 2 times daily. 60 tablet 5 10/05/2024 10/04/2025 Active ferrous sulfate 160 mg extended release oral tablet (8 sources) Start: 09-23-2018 take 1 tablet by mouth once daily Ferrous Sulfate, Dried (SLOW RELEASE IRON) 160 mg (50 mg iron) TbER Take 1 tablet by mouth once daily. 30 tablet 5 09/23/2018 Active Comment on above: Take 1 tablet by ramos th once daily. folic acid 1 mg oral tablet (10 sources) Start: 05-03-2018 End: 06-21-2022 take 1 tablet by mouth once daily folic acid 1 mg tablet Take 1 tablet by mouth once daily. 30 tablet 11 05/03/2018 Active Comment on above: Take 1 tablet by ramos th once daily. ibuprofen 600 mg oral tablet (8 sources) Nonsteroidal Anti-inflammatory Drug Start: 11-05-2018 ibuprofen (MOTRIN) 600 mg tablet TAKE 1 TABLET EVERY 6 HOURS NEEDED for mild pain (1 (ONE) to3/ TEN) 0 11/05/2018 Active Comment on above: TAKE 1 TABLET EVERY 6 HOURS NEEDED for mild pain (1 (ONE) to3/ TEN) 24 hr lamoTRIgine 200 mg extended release oral tablet (20 sources) Mood Stabilizer, Anti-epileptic Agent Start: 06-26-2024 End: 10-05-2024 take 4 tablets by mouth every twenty-four hours at bedtime LamoTRIgine 200 MG Tab SR 24 HR Take 4 tablets by mouth at bedtime. 360 tablet 1 10/05/2024 Active Start: 02-25-2024 lamoTRIgine 20 0 mg oral tablet, extended release Dose : 800 mg = 4 tab(s), Oral, qHS, 0 Refill(s) Start Date: 02/25/24 Status: Ordered Start: 08-24-2023 take 4 tablets by mo uth every twenty-four hours at bedtime LamoTRIgine 200 MG Tab SR 24 HR Indications: Seizure disorder Take 4 tablets by mouth at bedtime. 120 tablet 08/24/2023 Active Start: 05-10-2023 End: 10-13-2023 take 2 tablets by mouth every twenty-four hours at bedtime LamoTRIgine 300 MG Tab SR 24 HR Indications: Seizure disorder Take 2 tablets by mouth at bedtime. 180 tablet 1 05/10/2023 10/13/2023 Discontinued Start: 02-26-2023 End: 10-13-2023 take 1 tablet by mouth every twenty-four hours at bedtime lamoTRIgine ER (LAMICTAL XR) 100 mg 24 hr tablet Take 1 tablet by mouth at bedtime. (take with 600 mg dose total 700 mg daily) 02/26/2023 Active Start: 02-26-2023 take 1 tablet by ramos th once daily at bedtime lamoTRIgine ER (LAMICTAL XR) 300 mg 24 hr tablet Take 600 mg by mouth daily at bedtime. 02/26/2023 Active Start: 05-29-2022 take 1 tablet by ramos th every twenty-four hours at bedtime LamoTRIgine 100 MG Tab SR 24 HR Indications: Seizure disorder Take 1 tablet by mouth at bedtime. (take with 600 mg dose total 700 mg daily) 30 tablet 1 05/29/2022 Active Start: 05-29-2022 take 2 tablets by mo uth every twenty-four hours at bedtime LamoTRIgine 300 MG Tab SR 24 HR Indications: Seizure disorder Take 2 tablets by mouth at bedtime. 60 tablet 1 05/29/2022 Active Start: 12-25-2021 End: 06-23-2022 take 1 tablet by mouth twice daily lamoTRIgine (LaMICtal) 25 MG tablet Take 1 tablet by mouth 2 times daily. 60 tablet 5 12/25/2021 06/23/2022 Active Start: 12-23-2021 End: 06-21-2022 take 1 tablet by mouth twice daily lamoTRIgine 200 MG tablet Take 1 tablet by mouth 2 times daily. 60 tablet 5 12/23/2021 06/21/2022 Active Comment on above: Take 600 mg by mouth daily at bedtime. Take 1 tablet by ramos th at bedtime. (take with 600 mg dose total 700 mg daily) levETIRAcetam 500 mg oral tablet (20 sources) Start: take 1 tablet by mouth once daily at bedtime levETIRAcetam (KEPPRA) 500 mg tablet Take 1 tablet by mouth daily at bedtime. 3 01/31/2019 Active Start: 01-31-2019 take 2 tablets by mo uth once daily levETIRAcetam (KEPPRA) 750 mg tablet Take 2 tablets by mouth once daily. 3 01/31/2019 Active levetiracetam (K EPPRA ORAL) Take by mouth. Active levetiracetam (K EPPRA ORAL) Take by mouth. 0 Active Comment on above: Take by mouth. Take 1 tablet by ramos th daily at bedtime. Take 2 tablets by mo uth once daily. metoclopramide 10 mg oral tablet (1 source) Dopamine-2 Receptor Antagonist Start: 10-22-19 End: 10-29-19 Reglan 10 mg oral tablet Dose : 10 mg = 1 tab(s), Oral, TID, X 7 day(s), # 21 tab(s), 0 Refill(s), 10/28/21 17:35:00 EDT, Nausea Start Date: 10/21/21 Stop Date: 10/28/21 Status: Ordered omeprazole 20 mg delayed release oral capsule (8 sources) Proton Pump Inhibitor Start: 10-18-19 take 1 capsule by mouth once daily omeprazole (PRILOSEC) 20 mg capsule Take 1 capsule by mouth once daily. 30 capsule 1 10/17/2018 Active Comment on above: Take 1 capsule by mo uth once daily. penicillin v potassium 500 mg oral tablet (8 sources) Start: 03-01-20 19 take 1 tablet by mouth four times daily penicillin V potassium (V-CILLIN, VEETIDS) 500 mg tablet Take 1 tablet by mouth four times daily. 0 03/01/2019 Active Comment on above: Take 1 tablet by ramos th four times daily. Lraneqyd-Cg-Yfa-Fe-FA tab (8 sources) Start: 10-04-19 19 take 1 tablet by mouth once daily Pttntexy-Uk-Dgb-F e-FA tab Indications: 31 weeks gestation of Take 1 tablet by mouth once daily. 60 tablet 3 10/03/2018 Active Comment on above: Take 1 tablet by ramos th once daily. sertraline 25 mg oral tablet (8 sources) Serotonin Reuptake Inhibitor Start: 02-23-20 19 take 1 tablet by mouth once daily sertraline (ZOLOFT) 25 mg tablet Take 1 tablet by mouth once daily. 0 02/22/2019 Active Comment on above: Take 1 tablet by ramos th once daily. sulfamethoxazole 800 mg / trimethoprim 160 mg oral tablet (1 source) Dihydrofolate Reductase Inhibitor Antibacterial, Sulfonamide Antimicrobial Start: 11-14-19 End: 11-24-19 take 1 tablet by mouth twice daily Bactrim DS 800 mg-160 mg oral tablet Dose = 1 tab(s), Oral, BID, X 10 day(s), # 20 tab(s), 0 Refill(s), 78 Start Date: 11/14/23 Stop Date: 11/24/23 Status: Ordered Completed/Discontinued Medications Medication Drug Class(es) Dates Sig (Normalized) Sig (Original) diazePAM 100 mg/ml nasal spray (2 sources) Benzodiazepine Start: 10-13-2023 End: 10-05-2024 diazePAM, 20 MG Dose, (Valtoco 20 MG Dose) 2 x 10 MG/0.1ML Liquid Therapy Pack Indications: Nonintractable epilepsy without status epilepticus, unspecified epilepsy type Give 10 mg prn in ONE nostril and 10mg in the opposite nostril (20mg) upon the onset of a seizure cluster or upon onset of a convulsion. MAX 2 DOSES IN 7 DAYS. 4 Each 1 10/13/2023 10/05/2024 Discontinued (Therapy completed) doxycycline monohydrate 100 mg oral tablet (2 sources) Tetracycline-class Drug Start: 03-11-2023 End: 03-16-2023 take 1 tablet by mouth twice daily doxycycline monohydrate 100 mg tablet Indications: Cutaneous abscess of buttock Take 1 tablet by mouth twice daily for 5 days. 10 tablet 0 03/11/2023 03/16/2023 Comment on above: Take 1 tablet by ramos twice daily for 5 days. midazolam 50 mg/ml nasal spray (1 source) Benzodiazepine Start: 11-18-2022 End: 10-13-2023 Midazolam (Nayzilam) 5 MG/0.1ML Solution Indications: Seizure disorder Give 5 mg in one nostril for convulsive seizure. Can repeat in opposite nostril if seizure lasts longer than 5 minutes. 10 mg/24 hr MAX. 2 Each 11/18/2022 10/13/2023 Discontinued Problems Active Problems Problem Classification Problem Date Documented Da te Episodic/Chronic Epilepsy; convulsions (11 sources) Seizure disorder; Translations: [Epilepsy, unspecified, not intractable, without status epilepticus] Onset: 02-24-2022 02-24-2022 Chronic Epilepsy; convulsions (2 sources) Seizure; Translations: [Unspecified convulsions] Onset: 01-04-2025 Episodic Nausea and vomiting (1 source) Nausea; Translations: [Nausea] Onset: 10-21-2021 Episodic Other connective tissue disease (1 source) Pain in finger of left hand; Translations: [Pain in left finger(s)] 09-27-2023 Episodic Other diseases of veins and lymphatics (1 source) Lymphangitis; Translations: [Lymphangitis] Onset: 01-06-2024 Chronic Other injuries and conditions due to external causes (3 sources) Injury of finger of left hand; Translations: [Unspecified injury of left wrist, hand and finger(s), initial encounter] 09-22-2023 Episodic Other nervous system disorders (1 source) H/O: [employer] disorder; Translations: [Personal history of other diseases of the nervous system and sense organs] Onset: 08-21-2023 Episodic Other nutritional; endocrine; and metabolic disorders (4 sources) Obese class I; Translations: [Obesity, unspecified] Onset: 12-23-2021 12-23-2021 Chronic Other skin disorders (1 source) Disorder of nail; Translations: [Other nail disorders] Onset: 02-25-2024 Episodic Residual codes; unclassified (1 source) Procedure not done; Translations: [Procedure and treatment not carried out, unspecified reason] 11-12-2023 Episodic Skin and subcutaneous tissue infections (6 sources) Abscess of buttock; Translations: [Cutaneous abscess of buttock] Onset: 11-14-2023 03-11-2023 Episodic Substance-related disorders (8 sources) History of drug abuse; Translations: [Other psychoactive substance abuse, in remission] Onset: 01-14-2017 05-19-2018 Chronic Superficial injury; contusion (2 sources) Subungual hematoma, hand; Translations: [Contusion of unspecified finger with damage to nail, initial encounter] Onset: 03-18-2024 09-22-2023 Episodic Unclassified (1 source) Alcohol abuse with withdrawal, unspecified; Translations: [Alcohol abuse with withdrawal, unspecified] Onset: 11-16-2024 Past or Other Problems Problem Classification Problem Date Documented Da te Episodic/Chronic Administrative/social admission (8 sources) Legal problem; Translations: [Problems related to other legal circumstances] Onset: 01-14-2017 05-19-2018 Episodic Fracture of upper limb (5 sources) Closed fracture finger distal phalanx, tuft ; Translations: [Displaced fracture of distal phalanx of unspecified finger, initial encounter for closed fracture] Onset: 09-27-2023 09-22-2023 Episodic Other complications of (2 sources) Seizure disorder; Translations: [Diseases of the nervous system complicating , unspecified trimester] Onset: 09-23-2014 Resolved: 12-13-2018 12-13-2018 Episodic Other complications of (2 sources) Maternal tobacco use; Translations: [Smoking (tobacco) complicating , unspecified trimester] Onset: 01-14-2017 Resolved: 12-13-2018 12-13-2018 Episodic Other complications of (2 sources) History of delivery of macrosomal infant; Translations: [Supervision of with other poor reproductive or obstetric history, unspecified trimester] Onset: 01-14-2017 Resolved: 12-13-2018 12-13-2018 Episodic Other complications of (2 sources) Chlamydia trachomatis infection in ; Translations: [Other maternal infectious and parasitic diseases complicating , unspecified trimester] Onset: 01-19-2017 Resolved: 05-19-2018 05-19-2018 Episodic Other complications of (2 sources) Poor growth affecting management; Translations: [Maternal care for other known or suspected poor growth, third trimester, fetus 1] Onset: 09-19-2018 Resolved: 12-13-2018 12-13-2018 Episodic Other connective tissue disease (1 source) Pain in left finger(s); Translations: [Pain in left finger(s)] Onset: 03-10-2024 Episodic Other infections; including parasitic (8 sources) History of chlamydial infection; Translations: [Personal history of other infectious and parasitic diseases] Onset: 05-19-2018 05-19-2018 Episodic Other injuries and conditions due to external causes (1 source) Unspecified injury of left wrist, hand and finger(s), initial encounter; Translations: [Injury of finger of left hand, initial encounter] Onset: 09-27-2023 Episodic Other nervous system disorders (2 sources) H/O: epilepsy; Translations: [Personal history of other diseases of the nervous system and sense organs] Onset: 01-14-2017 Resolved: 05-19-2018 05-19-2018 Episodic Other and delivery including normal (4 sources) Normal ; Translations: [Encounter for supervision of other normal , unspecified trimester] Onset: 09-07-2014 Resolved: 12-13-2018 05-19-2018 Episodic Residual codes; unclassified (3 sources) Gestation period, 22 weeks; Translations: [22 weeks gestation of ] Onset: 02-24-2022 02-24-2022 Episodic Screening and history of mental health and substance abuse codes (8 sources) H/O: depression; Translations: [Personal history of other mental and behavioral disorders] Onset: 01-14-2017 05-19-2018 Episodic Unclassified (1 source) Onset: 10-13-2023 10-13-2023 Results Test Name Value Interpretation Reference Range Facility 12 Lead EKGon 01-01-2025 12 Lead EKG [facility] [address] [place] [address] 12 Lead EKG 01/01/25 0903 MR#: [id number] Acct: [id number] Name: DELON HAJI MILTON Rep #: [id number] : 1990 34 From: Alberto Hummel MD Attending Dr: Status: DEP ER Ordering Dr: Edvin Barrett DO Date: 5 Location: ED Sex: F C Admitted: Test Reason : SEIZURE Blood Pressure : */* mmHG Vent. Rate : 89 BPM Atrial Rate : 89 BPM P-R Int : 142 ms QRS Dur : 84 ms QT Int : 350 ms P-R-T Axes : 41 65 27 degrees QTcB Int : 425 ms Normal sinus rhythm Normal ECG Confirmed by Alberto Hummel ([id number]), film or videotape editor FILIPPO GUEVARA ([id number]) on 01/02/2025 6:14:23 AM Referred By: YARY Confirmed By: Alberto Hummel 01/02/2514 Date Alberto Hummel MD CC: Dr. Edvin Barrett DO; No Primary Care Physician Signed Normal [facility] Bedside Glucoseon 01-01-2025 FINGERSTICK GLU 99 mg/dL Normal 74-106 [facility] Comment on above: Result Comment: ROBBI ARIAS OF PATIENT CARE PER NURSING PROTOCOL Performed By: #### L 501.5200, L501.2300 #### [facility] [address] [place], [address] CBC W/Diff, Automatedon Absolute Neut Normal 2.0-7.7 [facility] Comment on above: Result Comment: ZACH ENT DISCHARGED-NO SPECIMEN REC'D Performed By: #### L 501.5200, L501.2300 #### [facility] [address] [place], [address] HCT Normal 37-47 [facility] Comment on above: Result Comment: ZACH ENT DISCHARGED-NO SPECIMEN REC'D Performed By: #### L 501.5200, [id number] #### [facility] [address] [place], [address] HGB Normal 12.0-15.0 [facility] Comment on above: Result Comment: ZACH ENT DISCHARGED-NO SPECIMEN REC'D Performed By: #### L 501.5200, [id number] #### [facility] [address] [place], [address] MCH Normal 27.0-32.0 [facility] Comment on above: Result Comment: ZACH ENT DISCHARGED-NO SPECIMEN REC'D Performed By: #### L 501.5200, [id number] #### [facility] [address] [place], [address] MCHC Normal 32-36 [facility] Comment on above: Result Comment: ZACH ENT DISCHARGED-NO SPECIMEN REC'D Performed By: #### L 501.5200, [id number] #### [facility] [address] [place], [address] MCV Normal 81-99 [facility] Comment on above: Result Comment: ZACH ENT DISCHARGED-NO SPECIMEN REC'D Performed By: #### L 501.5200, [id number] #### [facility] [address] [place], [address] NEUT% Normal 47-70 [facility] Comment on above: Result Comment: ZACH ENT DISCHARGED-NO SPECIMEN REC'D Performed By: #### L 501.5200, [id number] #### [facility] [address] [place], [address] PLT Normal 150-450 [facility] Comment on above: Result Comment: ZACH ENT DISCHARGED-NO SPECIMEN REC'D Performed By: #### L 501.5200, [id number] #### [facility] [address] [place], [address] RBC Normal 4.2-5.4 [facility] Comment on above: Result Comment: ZACH ENT DISCHARGED-NO SPECIMEN REC'D Performed By: #### L 501.5200, [id number] #### [facility] [address] [place], [address] RDW CV Normal 11.6-14.6 [facility] Comment on above: Result Comment: ZACH ENT DISCHARGED-NO SPECIMEN REC'D Performed By: #### L 501.5200, [id number] #### [facility] [address] [place], [address] RDW SD Normal 35.1-43.9 [facility] Comment on above: Result Comment: ZACH ENT DISCHARGED-NO SPECIMEN REC'D Performed By: #### L 501.5200, [id number] #### [facility] [address] [place], [address] WBC Normal 4.4-11.0 [facility] Comment on above: Result Comment: ZACH ENT DISCHARGED-NO SPECIMEN REC'D Performed By: #### L 501.5200, [id number] #### [facility] [address] [place], [address] Comprehensive Metabolic Prof vidyaon 01-01-2025 ALB Normal 3.5-5.0 [facility] Comment on above: Result Comment: ZACH ENT DISCHARGED-NO SPECIMEN REC'D Performed By: #### L 501.5200, [id number] #### [facility] [address] [place], [address] ALK PHOS Normal 35-104 [facility] Comment on above: Result Comment: ZACH ENT DISCHARGED-NO SPECIMEN REC'D Performed By: #### L 501.5200, [id number] #### [facility] [address] [place], [address] ALT Normal <=34 [facility] Comment on above: Result Comment: ZACH ENT DISCHARGED-NO SPECIMEN REC'D Performed By: #### L 501.5200, [id number] #### [facility] [address] [place], [address] AST Normal <=31 [facility] Comment on above: Result Comment: ZACH ENT DISCHARGED-NO SPECIMEN REC'D Performed By: #### L 501.5200, [id number] #### [facility] [address] [place], [address] BUN Normal 4-19 [facility] Comment on above: Result Comment: ZACH ENT DISCHARGED-NO SPECIMEN REC'D Performed By: #### L 501.5200, [id number] #### [facility] [address] [place], [address] BUN/CRE Normal 10-20 [facility] Comment on above: Result Comment: ZACH ENT DISCHARGED-NO SPECIMEN REC'D Performed By: #### L 501.5200, [id number] #### [facility] [address] [place], [address] Calcium Normal 7.6-11.0 [facility] Comment on above: Result Comment: ZACH ENT DISCHARGED-NO SPECIMEN REC'D Performed By: #### L 501.5200, [id number] #### [facility] [address] [place], [address] CL Normal 98-108 [facility] Comment on above: Result Comment: ZACH ENT DISCHARGED-NO SPECIMEN REC'D Performed By: #### L 501.5200, [id number] #### [facility] [address] [place], [address] CO2 Normal 21.0-32.0 [facility] Comment on above: Result Comment: ZACH ENT DISCHARGED-NO SPECIMEN REC'D Performed By: #### L 501.5200, [id number] #### [facility] [address] [place], [address] CREAT,SERUM Normal 0.70-1.20 [facility] Comment on above: Result Comment: ZACH ENT DISCHARGED-NO SPECIMEN REC'D Performed By: #### L 501.5200, [id number] #### [facility] [address] [place], [address] eGFR Normal >60 [facility] Comment on above: Result Comment: ZACH ENT DISCHARGED-NO SPECIMEN REC'D Performed By: #### L 501.5200, [id number] #### [facility] [address] [place], [address] GAP Normal 5-15 [facility] Comment on above: Result Comment: ZACH ENT DISCHARGED-NO SPECIMEN REC'D Performed By: #### L 501.5200, [id number] #### [facility] [address] [place], [address] GLU Normal 70-99 [facility] Comment on above: Result Comment: ZACH ENT DISCHARGED-NO SPECIMEN REC'D Performed By: #### L 501.5200, [id number] #### [facility] [address] [place], [address] Potassium Normal 3.3-5.1 [facility] Comment on above: Result Comment: ZACH ENT DISCHARGED-NO SPECIMEN REC'D Performed By: #### L 501.5200, [id number] #### [facility] [address] [place], [address] T BILI Normal 0.00-1.30 [facility] Comment on above: Result Comment: ZACH ENT DISCHARGED-NO SPECIMEN REC'D Performed By: #### L 501.5200, [id number] #### [facility] [address] [place], [address] T PROT Normal 5.9-8.4 [facility] Comment on above: Result Comment: ZACH ENT DISCHARGED-NO SPECIMEN REC'D Performed By: #### L 501.5200, [id number] #### [facility] [address] [place], [address] Comprehensive Metabolic Profil Normal 133-145 [facility] Comment on above: Result Comment: ZACH ENT DISCHARGED-NO SPECIMEN REC'D Performed By: #### L 501.5200, [id number] #### [facility] [address] [place], [address] Emergency Department Summary on 01-01-2025 Emergency Department Summary [facility] Records Department [address] [address] Emergency Department Summary 01/01/25 MR#: [id number] Acct: [id number] Name: DELON HAJI MILTON Rep #: [id number] : 1990 34 From: Edvin Barrett DO PCP: Care Physician,No Primary Status:PRE ER Location: ED HPI History of Present Illness Chief Complaint: Seizure Narrative Narrative: Chief complaint and HPI: Breakthrough seizure. 34-year-old female with past medical history of epilepsy and alcohol abuse presents for evaluation of breakthrough seizure. Patient states she is currently on parole. States that she was supposed to get a drug test today. It was reported that patient had a seizure in the waiting room. Patient does not know how long the seizure lasted however per report was told a couple of seconds. Seizure aborted on itself. Per EMS no postictal phase. No loss of incontinence or oral trauma. Patient states she feels fine. States she has been taking her medication. She takes 800 mg of lamotrigine at night. States she took it yesterday evening. In October was put on Clobazam by her neurologist in [place] however they are currently weaning this off as this has increased her seizures. She denies any recent alcohol or drug abuse. Denies any fever, chills, URI symptoms, shortness of breath, chest pain abdominal pain, nausea, vomiting, dysuria. Patient had seizure while sitting in a chair, no reported fall. Review of systems: See HPI Medications: As listed on the chart Allergies: As listed on the chart PFSH: Per chart Vital signs: As listed on the chart. Reviewed. Physical exam: Gen: A O x3, NAD Head: Normocephalic, atraumatic Eyes: No sclera icterus, conjunctiva clear, PERRL ENT: Moist mucous membranes without oral trauma, multiple facial piercings, face atraumatic Neck: Trachea midline, No JVD, full range of motion, nontender CV: RRR, no murmurs, no peripheral edema Resp: Lungs CTA BL, no w/r/c GI: Abd soft, non-distended, non-tender, no r/r/g Musc: Full ROM, no deformity, strength +5/5 in all extremities Skin: Warm, dry Neuro: Alert, oriented, grossly intact, sensation intact Psych: Cooperative, flat affect [facility] Medical History IUD (intrauterine device) in place Alcohol abuse Obesity Anxiety and depression History of chlamydia infection Tobacco use History of pre-term labor History of substance abuse Seizure disorder Home Medications ???Medication ???Instructions ???Recorded ???Last Taken ???Type clobazam 10 mg tablet 10 mg PO BID 11/10/24 11/29/24 His tory lamotrigine 200 mg tablet,extended 800 mg PO 1700 11/10/24 11/29/24 History release 24 hr Allergy/AdvReac Type Severity Reaction Status Date / Time tomato AdvReac Vomiting Verified 11/30/24 14:50 Family History Father Alcohol abuse Cataract Mother Seizures Surgical History No history of previous surgery Social History household members: spouse Smoking Status: Light Smoker (<10/day) alcohol intake: current alcohol intake frequency: 3 or more drinks per day Alcohol type: hard liquor details: 11/10/24 reporting 1/2 bottle liquor daily. substance use type: former substance user Date of last use: Opiates/pain killers, methamphetamine prior, clean since 2010. what type of physical activity do you participate in: walking frequency: daily EXAM Physical Exam Const Vital Signs: 01/01/25 08:39 Temperature 97 F L Temperature Source Temporal Pulse Rate 101 H Respiratory Rate 22 H Blood Pressure 139/73 H Blood Pressure Mean 95 Pulse Ox 99 Oxygen Delivery Method Room Air MDM MDM MDM Narrative Medical decision making narrative: 34-year-old female with past medical history of epilepsy and alcohol abuse presents for evaluation of breakthrough seizure. Per report, patient had a seizure while waiting in a waiting room for a drug test. Lasted several minutes. No postictal phase, urinary incontinence, oral trauma. Did not have any injury or fall during the episode. Per EMS, glucose 99. Patient states she has been taking her lamotrigine at night. Weaning off of clobazam per neurologist as this has been increasing seizures. Denies any symptoms. Differential diagnosis includes but is not limited to breakthrough seizure, noncompliance with medication, dehydration, , UTI, substance/alcohol abuse, pseudoseizure. NS bolus ordered. Laboratory workup ordered including urine. I do not think any imaging is needed at this time. Will perform lactic acid as this should be elevated in seizures. Will get lamotrigine level a (more content not included)... Normal [facility] Urine Drug Screen (VISTA)on 01-01-2025 AMPHETAMINES Normal <1000 ng/mL [facility] Comment on above: Result Comment: ZACH ENT DISCHARGED-NO SPECIMEN REC'D Performed By: #### L 501.5200, L501.2300 #### [facility] [address] [place], [address] BARBITIURATES Normal < 200 ng/mL [facility] Comment on above: Result Comment: ZACH ENT DISCHARGED-NO SPECIMEN REC'D Performed By: #### L 501.5200, L501.2300 #### [facility] [address] [place], [address] BENZODIAZIPINE Normal < 200 ng/mL [facility] Comment on above: Result Comment: ZACH ENT DISCHARGED-NO SPECIMEN REC'D Performed By: #### L 501.5200, L501.2300 #### [facility] [address] [place], [address] BUP Ur Drug Scr Normal < 200 ng/mL [facility] Comment on above: Result Comment: ZACH ENT DISCHARGED-NO SPECIMEN REC'D Performed By: #### L 501.5200, L501.2300 #### [facility] [address] [place], [address] COCAINE Normal < 300 ng/mL [facility] Comment on above: Result Comment: ZACH ENT DISCHARGED-NO SPECIMEN REC'D Performed By: #### L 501.5200, L501.2300 #### [facility] [address] [place], [address] Fentanyl Normal [facility] Comment on above: Result Comment: ZACH ENT DISCHARGED-NO SPECIMEN REC'D Performed By: #### L 501.5200, L501.2300 #### [facility] [address] [place], [address] METHADONE Normal < 300 ng/mL [facility] Comment on above: Result Comment: ZACH ENT DISCHARGED-NO SPECIMEN REC'D Performed By: #### L 501.5200, L501.2300 #### [facility] [address] [place], [address] OPIATES Normal < 300 ng/mL [facility] Comment on above: Result Comment: ZACH ENT DISCHARGED-NO SPECIMEN REC'D Performed By: #### L 501.5200, L501.2300 #### [facility] [address] [place], [address] OXYCODONE Normal < 100 ng/mL [facility] Comment on above: Result Comment: ZACH ENT DISCHARGED-NO SPECIMEN REC'D Performed By: #### L 501.5200, L501.2300 #### [facility] [address] [place], [address] PCP Normal < 25 ng/mL [facility] Comment on above: Result Comment: ZACH ENT DISCHARGED-NO SPECIMEN REC'D Performed By: #### L 501.5200, L501.2300 #### [facility] [address] [place], [address] THC Normal < 50 ng/mL [facility] Comment on above: Result Comment: ZACH ENT DISCHARGED-NO SPECIMEN REC'D Performed By: #### L 501.5200, L501.2300 #### [facility] [address] [place], [address] Lamotrigine (Lamictal) Level on 12-04-2024 LAMOTRIGINE 9.0 ug/mL Normal 2.0-20.0 [facility] Comment on above: Result Comment: Dete ction Limit = 1.0 Performed at: - [address] [id number] Reproduction Specialist: Jyoti Dailey MD, Phone: [phone] Performed By: #### L 501.5200, L501.2300 #### [facility] [address] [place], [address] Alcohol, Blood (Medical)-Ser umon 11-30-2024 SERUM ETOH < 10.1 Normal <=10.0 [facility] Comment on above: Result Comment: This test is for medical purposes only. The legal definition of intoxication varies according to local law. Performed By: #### L 501.5200, L501.2300 #### [facility] [address] [place], [address] CBC W/Diff, Automatedon 05-0 8-2024 Absolute Lymph 2.72 X10 3/uL Normal 0.83-4.51 [facility] Comment on above: Performed By: #### L 501.5200, L501.2300 #### [facility] [address] [place], [address] Absolute Neut 7.4 X10 3/uL Normal 2.0-7.7 [facility] Comment on above: Performed By: #### L 501.5200, L501.2300 #### [facility] [address] [place], [address] Basophils/100 WBC (Bld) 0.4 % Normal 0-1 [facility] Comment on above: Performed By: #### L 501.5200, L501.2300 #### [facility] [address] [place], [address] Eosinophils/100 WBC (Bld) 2.9 % Normal 0-5 [facility] Comment on above: Performed By: #### L 501.5200, L501.2300 #### [facility] [address] [place], [address] Erythrocyte distribution width (RBC) [Ratio] 12.0 % Normal 11.6-14.6 [facility] Comment on above: Performed By: #### L 501.5200, L501.2300 #### [facility] [address] [place], [address] Hematocrit (Bld) [Volume fraction] 41.8 % Normal 37-47 [facility] Comment on above: Performed By: #### L 501.5200, L501.2300 #### [facility] [address] [place], [address] Hemoglobin (Bld) [Mass/Vol] 14.6 g/dL Normal 12.0-15.0 [facility] Comment on above: Performed By: #### L 501.5200, L501.2300 #### [facility] [address] [place], [address] IG% 0.200 Normal 0.0-0.9 [facility] Comment on above: Result Comment: IG% - Immature Granulocytes (promyelocytes, myelocytes and metamyelocytes) > 1% indicates that a LEFT SHIFT is Present. Performed By: #### L 501.5200, L501.2300 #### [facility] [address] [place], [address] Lymphocytes/100 WBC (Bld) 24.0 % Normal 19-41 [facility] Comment on above: Performed By: #### L 501.5200, L501.2300 #### [facility] [address] [place], [address] MCH (RBC) [Entitic mass] 33.5 pg High 27.0-32.0 [facility] Comment on above: Performed By: #### L 501.5200, L501.2300 #### [facility] [address] [place], [address] MCHC (RBC) [Mass/Vol] 34.9 g/dL Normal 32-36 [facility] Comment on above: Performed By: #### L 501.5200, L501.2300 #### [facility] [address] [place], [address] MCV (RBC) [Entitic vol] 95.9 fL Normal 81-99 [facility] Comment on above: Performed By: #### L 501.5200, L501.2300 #### [facility] [address] [place], [address] Monocytes/100 WBC (Bld) 7.3 % Normal 0-10 [facility] Comment on above: Performed By: #### L 501.5200, L501.2300 #### [facility] [address] [place], [address] Neutrophils/100 WBC (Bld) 65.2 % Normal 47-70 [facility] Comment on above: Performed By: #### L 501.5200, L501.2300 #### [facility] [address] [place], [address] Nucleated RBC (Bld) [#/Vol] 0 10*3/uL Normal 0-5 [facility] Comment on above: Performed By: #### L 501.5200, L501.2300 #### [facility] [address] [place], [address] Platelet mean volume (Bld) [Entitic vol] 9.1 fL Normal 6.2-12.0 [facility] Comment on above: Performed By: #### L 501.5200, L501.2300 #### [facility] [address] [place], [address] Platelets (Bld) [#/Vol] 287 10*3/uL Normal 150-450 [facility] Comment on above: Performed By: #### L 501.5200, L501.2300 #### [facility] [address] [place], [address] RBC (Bld) [#/Vol] 4.36 10*6/uL Normal 4.2-5.4 [facility] Comment on above: Performed By: #### L 501.5200, L501.2300 #### [facility] [address] [place], [address] RDW SD 42.5 fl Normal 35.1-43.9 [facility] Comment on above: Performed By: #### L 501.5200, L501.2300 #### [facility] [address] [place], [address] WBC (Bld) [#/Vol] 11.3 10*3/uL High 4.4-11.0 [facility] Comment on above: Performed By: #### L 501.5200, L501.2300 #### [facility] [address] [place], [address] Comprehensive Metabolic Prof ilon 11-30-2024 Albumin [Mass/Vol] 4.5 g/dL Normal 3.5-5.0 [facility] Comment on above: Performed By: #### L 501.5200, L501.2300 #### [facility] [address] [place], [address] Albumin/Globulin [Mass ratio] 1.7 {ratio} Normal 0.9-2.4 [facility] Comment on above: Performed By: #### L 501.5200, L501.2300 #### [facility] [address] [place], [address] ALK PHOS 75 U/L Normal 35-104 [facility] Comment on above: Performed By: #### L 501.5200, L501.2300 #### [facility] [address] [place], [address] ALT [Catalytic activity/Vol] 17 U/L Normal <=34 [facility] Comment on above: Performed By: #### L 501.5200, L501.2300 #### [facility] [address] [place], [address] AST [Catalytic activity/Vol] 17 U/L Normal <=31 [facility] Comment on above: Performed By: #### L 501.5200, L501.2300 #### [facility] [address] [place], [address] Bilirubin [Mass/Vol] 0.35 mg/dL Normal 0.00-1.30 [facility] Comment on above: Performed By: #### L 501.5200, L501.2300 #### [facility] [address] [place], [address] BUN/CRE 13.9 RATIO Normal 10-20 [facility] Comment on above: Performed By: #### L 501.5200, L501.2300 #### [facility] [address] [place], [address] Calcium [Mass/Vol] 9.4 mg/dL Normal 7.6-11.0 [facility] Comment on above: Performed By: #### L 501.5200, L501.2300 #### [facility] [address] [place], [address] Chloride [Moles/Vol] 104 mmol/L Normal 98-108 [facility] Comment on above: Performed By: #### L 501.5200, L501.2300 #### [facility] [address] [place], [address] CO2 [Moles/Vol] 24.6 mmol/L Normal 21.0-32.0 [facility] Comment on above: Performed By: #### L 501.5200, L501.2300 #### [facility] [address] [place], [address] Creatinine [Mass/Vol] 0.72 mg/dL Normal 0.70-1.20 [facility] Comment on above: Performed By: #### L 501.5200, L501.2300 #### [facility] [address] [place], [address] ECRCL 139.36 ml/min Normal 50-250 [facility] Comment on above: Performed By: #### L 501.5200, L501.2300 #### [facility] [address] [place], [address] GAP 10 Normal 5-15 [facility] Comment on above: Performed By: #### L 501.5200, L501.2300 #### [facility] [address] [place], [address] GFR/1.73 sq M.predicted among non-blacks MDRD (S/P/Bld) [Vol rate/Area] 112 mL/min/{1.73_m2} Normal >60 [facility] Comment on above: Result Comment: mL/m in/1.73m2 CKD-EPI Creatinine Equation (2020) Performed By: #### L 501.5200, L501.2300 #### [facility] [address] [place], [address] Globulin (S) [Mass/Vol] 2.6 g/dL Normal 2.2-4.2 [facility] Comment on above: Performed By: #### L 501.5200, L501.2300 #### [facility] [address] [place], [address] Glucose [Mass/Vol] 92 mg/dL Normal 70-99 [facility] Comment on above: Performed By: #### L 501.5200, L501.2300 #### [facility] [address] [place], [address] Potassium [Moles/Vol] 3.7 mmol/L Normal 3.3-5.1 [facility] Comment on above: Performed By: #### L 501.5200, L501.2300 #### [facility] [address] [place], [address] Sodium [Moles/Vol] 139 mmol/L Normal 133-145 [facility] Comment on above: Performed By: #### L 501.5200, L501.2300 #### [facility] [address] [place], [address] T PROT 7.1 g/dL Normal 5.9-8.4 [facility] Comment on above: Performed By: #### L 501.5200, L501.2300 #### [facility] [address] [place], [address] Urea nitrogen [Mass/Vol] 10 mg/dL Normal 4-19 [facility] Comment on above: Performed By: #### L 501.5200, L501.2300 #### [facility] [address] [place], [address] Emergency Department Summary on 11-30-2024 Emergency Department Summary [facility] Medical Records Department [address] [place] [address] Emergency Department Summary 11/30/24 MR#: [id number] Acct: [id number] Name: DELON HAJI MILTON Rep #: [id number] : 1990 34 From: Maurisio Richards DO PCP: Care Physician,No Primary Status:DEP ER Location: ED HPI History of Present Illness Chief Complaint: Seizure Informant: patient and spouse/S.O. Narrative Narrative: 34-year-old female with history of epilepsy presenting to the emergency room for seizure. Patient reportedly was at work when she had a seizure lasting 10 to 15 minutes per coworkers. He was described as her staring off and she remained standing. She states that she generally has generalized seizures. Patient states that she saw neurology in [place] in October of this year. She states that they added in a new medication but she cannot recall the name of it (clobazam). She also takes lamotrigine. Patient denies any recent infections fevers. She denies any injury from today's seizure. She states that she really did not feel like she needed to be here but employer wanted her to have the rest the day off and to be evaluated and her significant other wanted her to be evaluated. [facility] Medical History IUD (intrauterine device) in place Alcohol abuse Obesity Anxiety and depression History of chlamydia infection Tobacco use History of pre-term labor History of substance abuse Seizure disorder Home Medications ???Medication ???Instructions ???Recorded ???Last Taken ???Type clobazam 10 mg tablet 10 mg PO BID 11/10/24 11/29/24 His tory lamotrigine 200 mg tablet,extended 800 mg PO 1700 11/10/24 11/29/24 History release 24 hr Allergy/AdvReac Type Severity Reaction Status Date / Time tomato AdvReac Vomiting Verified 11/30/24 14:50 Family History Father Alcohol abuse Cataract Mother Seizures Surgical History No history of previous surgery Social History household members: spouse Smoking Status: Light Smoker (<10/day) alcohol intake: current alcohol intake frequency: 3 or more drinks per day Alcohol type: hard liquor details: 11/10/24 reporting 1/2 bottle liquor daily. substance use type: former substance user Date of last use: Opiates/pain killers, methamphetamine prior, clean since 2010. what type of physical activity do you participate in: walking frequency: daily ROS ROS ED Constitutional Constitutional ED: Denies chills, fever(s) or weight loss Eyes Eyes: Denies change in vision or diplopia ENT ENT ED: Denies ear pain, rhinorrhea or sore throat Cardiovascular Cardiovascular: Denies chest pain, orthopnea, palpitations or racing heartbeat Respiratory/Chest Respiratory/Chest: Denies cough, dyspnea or orthopnea Gastrointestinal Gastrointestinal: Denies abdominal pain, diarrhea, nausea or vomiting Genitourinary Genitourinary ED: Denies dysuria, hematuria or urinary frequency Musculoskeletal Musculoskeletal: Denies arthralgias or myalgias Integumentary Denies abscess or rash Neurologic Neurologic: Reports other Details: Seizure ; Denies headache(s) or weakness Psychiatric Psychiatric: Denies anxiety, depression, suicidal ideation or suicidal thoughts Endocrine Endocrinology: Denies polydipsia, polyphagia or polyuria Allergic/Immunologic Allergic/Immunologic ED: Denies mouth swelling, tongue swelling or urticaria EXAM Physical Exam Const Vital Signs: 11/30/24 14:47 11/30/24 15:46 11/30/24 16:00 Temperature 97.4 F L Temperature Source Temporal Pulse Rate 96 84 79 Respiratory Rate 15 15 Blood Pressure 132/82 H 122/64 H 100/58 L Blood Pressure Mean 98 83 72 Pulse Ox 100 100 Oxygen Delivery Method Room Air Room Air Positive well nourished and well developed General Appearance ED: well developed HEENT Reports normocephalic, head/scalp atraumatic and moist mucous membranes Eyes PERRL and EOMs intact bilaterally Neck no lymphadenopathy, supple and no JVD Resp normal respiratory effort and clear to auscultation bilaterally Cardio regular rate, regular rhythm and no murmurs GI normal to inspection, nondistended, normoactive bowel sounds and non-tender Palpation: soft Back/Spine no CVA tenderness and normal ROM Extremity normal to inspection General Extremety ED: Negative for edema General Extremity: Negative for edema Neuro oriented x3, CN's II-XII intact bilaterally and no sensory deficits noted Sensorium / Orientation: alert Motor Exam: strength 5/5 throughout Psych mental status grossly normal Mood Affect: Negative for depressed o (more content not included)... Normal [facility] ,Serum,hCG Quali.on 11-30-2024 HCG, SERUM QUAL Negative Normal [facility] Comment on above: Performed By: #### L 501.5200, L501.2300 #### [facility] [address] [place], [place], [id number] Urinalysis, Completeon 11-30 EPI,SQUAMOUS 0-5 SEEN Normal 5-10 [facility] Comment on above: Order Comment: CLEAN CATCH Performed By: #### L 400.0001 #### [facility] [address] [place], [place], [id number] RBC 0-5 SEEN Normal 0-5 [facility] Comment on above: Order Comment: CLEAN CATCH Performed By: #### L 400.0001 #### [facility] [address] [place], [place], [id number] WBC 0-5 SEEN Normal 0-5 [facility] Comment on above: Order Comment: CLEAN CATCH Performed By: #### L 400.0001 #### [facility] [address] [place], [address] BACTERIA 0 SEEN Normal None Seen [facility] Comment on above: Order Comment: CLEAN CATCH Performed By: #### L 400.0001 #### [facility] [address] [place], [address] Mucus Ql (Urine sed) 0 SEEN Normal [facility] Comment on above: Order Comment: CLEAN CATCH Performed By: #### L 400.0001 #### [facility] [address] [place], [address] Urine Drug Screen (VISTA)on 11-30-2024 AMPHETAMINES Negative Normal <1000 ng/mL [facility] Comment on above: Performed By: #### L 501.5200, L501.2300 #### [facility] [address] [facility] [address] BARBITIURATES Negative Normal < 200 ng/mL [facility] Comment on above: Performed By: #### L 501.5200, L501.2300 #### [facility] [address] [facility] [address] BENZODIAZIPINE Positive Normal < 200 ng/mL [facility] Comment on above: Result Comment: If c onfirmation testing is needed, a separate order will be required to send out testing to the reference laboratory. Performed By: #### L 501.5200, L501.2300 #### [facility] [address] [place], [address] BUP Ur Drug Scr Negative Normal < 200 ng/mL [facility] Comment on above: Performed By: #### L 501.5200, L501.2300 #### [facility] [address] [place], [address] COCAINE Negative Normal < 300 ng/mL [facility] Comment on above: Performed By: #### L 501.5200, L501.2300 #### [facility] [address] [place], [address] Fentanyl Negative Normal [facility] Comment on above: Performed By: #### L 501.5200, L501.2300 #### [facility] [address] [place], [address] METHADONE Negative Normal < 300 ng/mL [facility] Comment on above: Performed By: #### L 501.5200, L501.2300 #### [facility] [address] [place], [address] OPIATES Negative Normal < 300 ng/mL [facility] Comment on above: Performed By: #### L 501.5200, L501.2300 #### [facility] [address] [place], [address] OXYCODONE Negative Normal < 100 ng/mL [facility] Comment on above: Performed By: #### L 501.5200, L501.2300 #### [facility] [address] [place], [address] PCP Positive Normal < 25 ng/mL [facility] Comment on above: Result Comment: If c onfirmation testing is needed, a separate order will be required to send out testing to the reference laboratory. Performed By: #### L 501.5200, L501.2300 #### [facility] [address] [place], [address] THC Negative Normal < 50 ng/mL [facility] Comment on above: Performed By: #### L 501.5200, L501.2300 #### [facility] [address] [place], [address] Alcohol, Blood (Medical)-Ser umon 11-10-2024 SERUM ETOH < 10.1 Normal <=10.0 [facility] Comment on above: Result Comment: This test is for medical purposes only. The legal definition of intoxication varies according to local law. Performed By: #### L 501.5200, L501.2300 #### [facility] [address] [place], [address] CBC W/Diff, Automatedon 10-24 Absolute Lymph 2.96 X10 3/uL Normal 0.83-4.51 [facility] Comment on above: Performed By: #### L 501.5200, L501.2300 #### [facility] [address] [place], [address] Absolute Neut 6.2 X10 3/uL Normal 2.0-7.7 [facility] Comment on above: Performed By: #### L 501.5200, L501.2300 #### [facility] [address] [place], [address] Basophils/100 WBC (Bld) 1.0 % Normal 0-1 [facility] Comment on above: Performed By: #### L 501.5200, L501.2300 #### [facility] [address] [place], [address] Eosinophils/100 WBC (Bld) 2.4 % Normal 0-5 [facility] Comment on above: Performed By: #### L 501.5200, L501.2300 #### [facility] [address] [place], [address] Erythrocyte distribution width (RBC) [Ratio] 12.6 % Normal 11.6-14.6 [facility] Comment on above: Performed By: #### L 501.5200, L501.2300 #### [facility] [address] [place], [address] Hematocrit (Bld) [Volume fraction] 40.4 % Normal 37-47 [facility] Comment on above: Performed By: #### L 501.5200, L501.2300 #### [facility] [address] [place], [address] Hemoglobin (Bld) [Mass/Vol] 14.2 g/dL Normal 12.0-15.0 [facility] Comment on above: Performed By: #### L 501.5200, L501.2300 #### [facility] [address] [place], [address] IG% 0.400 Normal 0.0-0.9 [facility] Comment on above: Result Comment: IG% - Immature Granulocytes (promyelocytes, myelocytes and metamyelocytes) > 1% indicates that a LEFT SHIFT is Present. Performed By: #### L 501.5200, L501.2300 #### [facility] [address] [place], [address] Lymphocytes/100 WBC (Bld) 29.1 % Normal 19-41 [facility] Comment on above: Performed By: #### L 501.5200, L501.2300 #### [facility] [address] [place], [address] MCH (RBC) [Entitic mass] 33.3 pg High 27.0-32.0 [facility] Comment on above: Performed By: #### L 501.5200, L501.2300 #### [facility] [address] [place], [address] MCHC (RBC) [Mass/Vol] 35.1 g/dL Normal 32-36 [facility] Comment on above: Performed By: #### L 501.5200, L501.2300 #### [facility] [address] [place], [address] MCV (RBC) [Entitic vol] 94.8 fL Normal 81-99 [facility] Comment on above: Performed By: #### L 501.5200, L501.2300 #### [facility] [address] [place], [address] Monocytes/100 WBC (Bld) 6.5 % Normal 0-10 [facility] Comment on above: Performed By: #### L 501.5200, L501.2300 #### [facility] [address] [place], [address] Neutrophils/100 WBC (Bld) 60.6 % Normal 47-70 [facility] Comment on above: Performed By: #### L 501.5200, L501.2300 #### [facility] [address] [place], [address] Nucleated RBC (Bld) [#/Vol] 0 10*3/uL Normal 0-5 [facility] Comment on above: Performed By: #### L 501.5200, L501.2300 #### [facility] [address] [place], [address] Platelet mean volume (Bld) [Entitic vol] 8.8 fL Normal 6.2-12.0 [facility] Comment on above: Performed By: #### L 501.5200, L501.2300 #### [facility] [address] [place], [address] Platelets (Bld) [#/Vol] 287 10*3/uL Normal 150-450 [facility] Comment on above: Performed By: #### L 501.5200, L501.2300 #### [facility] [address] [place], [address] RBC (Bld) [#/Vol] 4.26 10*6/uL Normal 4.2-5.4 [facility] Comment on above: Performed By: #### L 501.5200, L501.2300 #### [facility] [address] [place], [address] RDW SD 43.9 fl Normal 35.1-43.9 [facility] Comment on above: Performed By: #### L 501.5200, L501.2300 #### [facility] [address] [place], [address] WBC (Bld) [#/Vol] 10.2 10*3/uL Normal 4.4-11.0 [facility] Comment on above: Performed By: #### L 501.5200, L501.2300 #### [facility] [address] [place], [address] Comprehensive Metabolic Prof ilon 11-10-2024 Albumin [Mass/Vol] 4.5 g/dL Normal 3.5-5.0 [facility] Comment on above: Performed By: #### L 501.5200, L501.2300 #### [facility] [address] [place], [address] Albumin/Globulin [Mass ratio] 1.8 {ratio} Normal 0.9-2.4 [facility] Comment on above: Performed By: #### L 501.5200, L501.2300 #### [facility] [address] [place], [address] ALK PHOS 84 U/L Normal 35-104 [facility] Comment on above: Performed By: #### L 501.5200, L501.2300 #### [facility] [address] [place], [address] ALT [Catalytic activity/Vol] 23 U/L Normal <=34 [facility] Comment on above: Performed By: #### L 501.5200, L501.2300 #### [facility] [address] [place], [address] AST [Catalytic activity/Vol] 24 U/L Normal <=31 [facility] Comment on above: Performed By: #### L 501.5200, L501.2300 #### [facility] [address] [place], [address] Bilirubin [Mass/Vol] 0.53 mg/dL Normal 0.00-1.30 [facility] Comment on above: Performed By: #### L 501.5200, L501.2300 #### [facility] [address] [place], [address] BUN/CRE 13.4 RATIO Normal 10-20 [facility] Comment on above: Performed By: #### L 501.5200, L501.2300 #### [facility] [address] [place], [address] Calcium [Mass/Vol] 9.3 mg/dL Normal 7.6-11.0 [facility] Comment on above: Performed By: #### L 501.5200, L501.2300 #### [facility] [address] [place], [address] Chloride [Moles/Vol] 104 mmol/L Normal 98-108 [facility] Comment on above: Performed By: #### L 501.5200, L501.2300 #### [facility] [address] [place], [address] CO2 [Moles/Vol] 22.6 mmol/L Normal 21.0-32.0 [facility] Comment on above: Performed By: #### L 501.5200, L501.2300 #### [facility] [address] [place], [address] Creatinine [Mass/Vol] 0.80 mg/dL Normal 0.70-1.20 [facility] Comment on above: Performed By: #### L 501.5200, L501.2300 #### [facility] [address] [place], [address] ECRCL 126.84 ml/min Normal 50-250 [facility] Comment on above: Performed By: #### L 501.5200, L501.2300 #### [facility] [address] [place], [address] GAP 10 Normal 5-15 [facility] Comment on above: Performed By: #### L 501.5200, L501.2300 #### [facility] [address] [place], [address] GFR/1.73 sq M.predicted among non-blacks MDRD (S/P/Bld) [Vol rate/Area] 99 mL/min/{1.73_m2} Normal >60 [facility] Comment on above: Result Comment: mL/m in/1.73m2 CKD-EPI Creatinine Equation (2020) Performed By: #### L 501.5200, L501.2300 #### [facility] [address] [place], [address] Globulin (S) [Mass/Vol] 2.4 g/dL Normal 2.2-4.2 [facility] Comment on above: Performed By: #### L 501.5200, L501.2300 #### [facility] [address] [place], [address] Glucose [Mass/Vol] 91 mg/dL Normal 70-99 [facility] Comment on above: Performed By: #### L 501.5200, L501.2300 #### [facility] [address] [place], [address] Potassium [Moles/Vol] 4.0 mmol/L Normal 3.3-5.1 [facility] Comment on above: Performed By: #### L 501.5200, L501.2300 #### [facility] [address] [place], [address] Sodium [Moles/Vol] 136 mmol/L Normal 133-145 [facility] Comment on above: Performed By: #### L 501.5200, L501.2300 #### [facility] [address] [place], [address] T PROT 6.9 g/dL Normal 5.9-8.4 [facility] Comment on above: Performed By: #### L 501.5200, L501.2300 #### [facility] [address] [place], [address] Urea nitrogen [Mass/Vol] 11 mg/dL Normal 4-19 [facility] Comment on above: Performed By: #### L 501.5200, L501.2300 #### [facility] [address] [place], [address] Emergency Department Summary on 11-10-2024 Emergency Department Summary [facility] Medical Records Department [address] [place] [address] Emergency Department Summary 11/10/24 MR#: [id number] Acct: [id number] Name: DELON HAJI MILTON Rep #: [id number] : 1990 34 From: Jignesh Fuentes DO PCP: Care Physician,No Primary Status:ADM IN Location: [address] History of Present Illness Chief Complaint: Substance Abuse Informant: patient Onset/Context/Timing Onset: Yesterday Context: Gradual Onset Timing: Continuous Worsened by: Nothing Relieved by: Nothing Associated Symptoms Associated Symptoms: Negative for vomiting*, diarrhea*, fever*, rash*, seizure, tremor, palpatations, change in mental status or no Narrative Narrative: Patient presents requesting detox from alcohol. Patient states she drinks half a bottle of hard liquor per day. Patient states her last drink was last evening. Patient states she has never been to detox before. Patient denies any chance of . Patient denies any suicidal homicidal ideations. Patient denies any seizures or tremors. Patient denies any nausea, vomiting, or diarrhea. Patient denies any fevers or chills. [facility] Medical History IUD (intrauterine device) in place Alcohol abuse Obesity Anxiety and depression History of chlamydia infection Tobacco use History of pre-term labor History of substance abuse Seizure disorder Home Medications ???Medication ???Instructions ???Recorded ???Last Taken ???Type clobazam 10 mg tablet 10 mg PO BID 11/10/24 11/09/24 His tory lamotrigine 200 mg tablet,extended 800 mg PO 1700 11/10/24 11/09/24 History release 24 hr Allergy/AdvReac Type Severity Reaction Status Date / Time tomato AdvReac Vomiting Verified 11/10/24 13:28 Family History (Updated 11/10/24 @ 14:[address] Caro Chavez MD) Father Alcohol abuse Cataract Mother Seizures Surgical History No history of previous surgery Social History household members: spouse Smoking Status: Current every day smoker tobacco type: cigarettes alcohol intake: current alcohol intake frequency: 3 or more drinks per day Alcohol type: hard liquor details: 11/10/24 reporting 1/2 bottle liquor daily. substance use type: former substance user Date of last use: Opiates/pain killers, methamphetamine prior, clean since 2010. what type of physical activity do you participate in: walking frequency: daily ROS ROS ED Constitutional Constitutional ED: Denies chills or fever(s) Eyes Eyes: Denies blurry vision or change in vision ENT ENT ED: Denies rhinorrhea or sore throat Cardiovascular Cardiovascular: Denies chest pain or palpitations Respiratory/Chest Respiratory/Chest: Denies cough or dyspnea Gastrointestinal Gastrointestinal: Denies nausea or vomiting Genitourinary Genitourinary ED: Denies dysuria or hematuria Musculoskeletal Musculoskeletal: Denies back pain or neck pain Integumentary Denies abscess or rash Neurologic Neurologic: Denies headache(s) or weakness Psychiatric Psychiatric: Denies depression, suicidal ideation or suicidal thoughts Allergic/Immunologic Allergic/Immunologic ED: Denies mouth swelling or urticaria EXAM Physical Exam Const Vital Signs: 11/10/24 13:28 Temperature 98.2 F Temperature Source Temporal Pulse Rate 112 H Respiratory Rate 16 Blood Pressure 146/76 H Blood Pressure Mean 99 Pulse Ox 96 Oxygen Delivery Method Room Air Positive well nourished and well developed Constitutional Narrative: BMI is 33.7. General Appearance ED: well developed and NAD HEENT Reports moist mucous membranes atraumatic Neck supple and no JVD Resp normal respiratory effort and clear to auscultation bilaterally Cardio regular rate and regular rhythm GI soft to palpation, non-tender and non-distended Extremity General Extremety ED: Negative for edema or tenderness General Extremity: Negative for edema Neuro oriented x3, CN's II-XII intact bilaterally and no sensory deficits noted [place] Coma Scale: document GCS findings Spontaneous Obeys Commands Oriented 15 Sensorium / Orientation: alert Speech: speech normal Motor Exam: strength 5/5 throughout Psych mental status grossly normal and thought process normal MDM MDM MDM Narrative Medical decision making narrative: Medical screening labs will be obtained. CBC will be obtained to assess for leukocytosis and anemia. Comprehensive metabolic profile will be obtained to assess for hepatic function, renal function, and electrolyte abnormality. Lipase will be obtained to assess for pancreatitis. Urine drug screen will be obtained to assess for substan (more content not included)... Normal [facility] H AND P Exam - [facility] 11-10-2024 H&P Exam - Hospitalist [facility] Medical Records Department [address] [place] [address] H P Exam - Hospitalist 11/10/24 1443 MR#: [id number] Acct: [id number] Name: DELON HAJI Rep #: [id number] : 1990 34 From: Caro Chavez MD PCP: Care Physician,No Primary Status:REG ER Location: ED HPI - General General Date of Admission: 11/10/24 Date of Service: 11/10/24 Chief Complaint: EtOH detoxification HPI Narrative The patient is a 34 y/o F w/ PMHx: Obesity, Epilepsy, GERD, Anxiety and Depression, Hx STI, Hx Polysubstance abuse, EtOH abuse (1/2 bottle liquor daily) since 16 years old who presents to the [facility] on 11/10/24 w/ last EtOH intake at approximate 2300 the evening prior currently denying any withdrawal symptoms requesting detoxification. She notes that previously when she has gone 2 to 3 days with alcohol she does not have any severe symptoms but has not gone longer than this. Her and her have recently been able to secure home again as they have been homeless unfortunately lost custody of their daughter. They are doing everything in their power they say to be able to stabilize their lives and get their daughter back. Her who is present does not drink any alcohol or use any drugs, clean status. Workup in the ED included T98.2, heart rate 112, BP 146/76, respiratory rate 16, 96% room air, CBC with WC 10.2, hemoglobin 14.2, platelet 287 without marked shift, pending CMP, , UDS, ethyl alcohol level upon requested evaluation of patient. [facility] Medical History IUD (intrauterine device) in place Alcohol abuse Obesity Anxiety and depression History of chlamydia infection Tobacco use History of pre-term labor History of substance abuse Seizure disorder Home Medications ???Medication ???Instructions ???Recorded ???Last Taken ???Type clobazam 10 mg tablet 10 mg PO BID 11/10/24 11/09/24 His tory lamotrigine 200 mg tablet,extended 800 mg PO 1700 11/10/24 11/09/24 History release 24 hr Allergy/AdvReac Type Severity Reaction Status Date / Time tomato AdvReac Vomiting Verified 11/10/24 13:28 Family History (Updated 11/10/24 @ 14:[address] Caro Chavez MD) Father Alcohol abuse Cataract Mother Seizures Surgical History No history of previous surgery Social History (Updated 11/10/24 @ 14:[address] Caro Chavez MD) household members: spouse Smoking Status: Current every day smoker tobacco type: cigarettes alcohol intake: current alcohol intake frequency: 3 or more drinks per day Alcohol type: hard liquor details: 11/10/24 reporting 1/2 bottle liquor daily. substance use type: former substance user Date of last use: Opiates/pain killers, methamphetamine prior, clean since 2010. what type of physical activity do you participate in: walking frequency: daily ROS ROS Narrative Admission Review of Systems: CONSTITUTIONAL: No weight loss, fever, chills, weakness or fatigue. HEENT: Eyes: No visual loss, blurred vision, double vision or yellow sclerae. Ears, Nose, Throat: No hearing loss, sneezing, congestion, runny nose or sore throat. SKIN: No rash or itching, lesions, wounds. CARDIOVASCULAR: No chest pain, chest pressure or chest discomfort, palpitations, edema, orthopnea, syncopal events. RESPIRATORY: No shortness of breath, cough or sputum, wheezing, hemoptysis. GASTROINTESTINAL: No anorexia, nausea, vomiting or diarrhea, abdominal pain, melena, BRBPR. GENITOURINARY: No dysuria, frequency, urgency or retention. NEUROLOGICAL: + Seizure disorder. No headache, dizziness, syncope, paralysis, ataxia, numbness or tingling in the extremities, focal weakness, change in bowel or bladder control. MUSCULOSKELETAL: + muscle, back pain, joint pain or stiffness. HEMATOLOGIC: No anemia, bleeding or bruising. LYMPHATICS: No enlarged nodes. No history of splenectomy. PSYCHIATRIC: + History of anxiety depression. ENDOCRINOLOGIC: No reports of sweating, cold or heat intolerance. No polyuria or polydipsia. ALLERGIES: No history of asthma, hives, eczema or rhinitis. Vital Signs Vital Signs Vital Signs: 11/10/24 13:28 11/10/24 14:27 Temperature 98.2 F Temperature Source Temporal Pulse Rate 112 H 78 Respiratory Rate 16 18 Blood Pressure 146/76 H 142/88 H Blood Pressure Mean 99 106 Pulse Ox 96 98 Oxygen Delivery Method Room Air Room Air Weight Weight: 228 lb Body Mass Index (BMI) 33.6 Physical Exam Narrative Physical Examination: General: Awake, alert, oriented x 3 and cooperative, seated upright in the ED bed, fatigued appearing but no evident withdrawal symptoms. Skin: Normal color, normal turgor, no icterus, no cyanosis except occasional stage ecchymoses, abr (more content not included)... Normal [facility] Lipaseon 11-10-2024 Lipase [Catalytic activity/Vol] 24 U/L Normal 13-75 [facility] Comment on above: Result Comment: Tamir talamantes note: LIPASE revised reference range effective 22. New Lipase methodology. Expected to produce lower values than the previous assay method. NEW Reference Range: 13 - 75 U/L Performed By: #### L 501.5200, L501.2300 #### [facility] [address] [place], [address] Magnesiumon 04-18-2025 Magnesium [Mass/Vol] 2.2 mg/dL Normal 1.5-2.2 [facility] Comment on above: Order Comment: Comme nts: May add to ED labs Comments: may add to ED labs Performed By: #### L 501.5200, L501.2300 #### [facility] [address] [place], [address] Phosphoruson 11-10-2024 Phosphate [Mass/Vol] 2.2 mg/dL Low 2.7-4.5 [facility] Comment on above: Order Comment: Comme nts: May add to ED labs Comments: may add to ED labs Performed By: #### L 501.5200, L501.2300 #### [facility] [address] [place], [address] ,Serum,hCG Quali.on 11-10-2024 HCG, SERUM QUAL Negative Normal [facility] Comment on above: Performed By: #### L 501.5200, L501.2300 #### [facility] [address] [place], [address] Urine Drug Screen (VISTA)on 11-10-2024 AMPHETAMINES Negative Normal <1000 ng/mL [facility] Comment on above: Performed By: #### L 501.5200, L501.2300 #### [facility] [address] [place], [address] BARBITIURATES Negative Normal < 200 ng/mL [facility] Comment on above: Performed By: #### L 501.5200, L501.2300 #### [facility] [address] [place], [address] BENZODIAZIPINE Positive Normal < 200 ng/mL [facility] Comment on above: Result Comment: If c onfirmation testing is needed, a separate order will be required to send out testing to the reference laboratory. Performed By: #### L 501.5200, L501.2300 #### [facility] [address] [place], [address] BUP Ur Drug Scr Negative Normal < 200 ng/mL [facility] Comment on above: Performed By: #### L 501.5200, L501.2300 #### [facility] [address] [place], [address] COCAINE Negative Normal < 300 ng/mL [facility] Comment on above: Performed By: #### L 501.5200, L501.2300 #### [facility] [address] [place], [address] Fentanyl Negative Normal [facility] Comment on above: Performed By: #### L 501.5200, L501.2300 #### [facility] [address] [place], [address] METHADONE Negative Normal < 300 ng/mL [facility] Comment on above: Performed By: #### L 501.0, L501.2300 #### [facility] [address] [place], [address] OPIATES Negative Normal < 300 ng/mL [facility] Comment on above: Performed By: #### L 501.5200, L501.2300 #### [facility] [address] [place], [address] OXYCODONE Negative Normal < 100 ng/mL [facility] Comment on above: Performed By: #### L 501.5200, L501.2300 #### [facility] [address] [place], [address] PCP Negative Normal < 25 ng/mL [facility] Comment on above: Performed By: #### L 501.5200, L501.2300 #### [facility] [address] [place], [address] THC Negative Normal < 50 ng/mL [facility] Comment on above: Performed By: #### L 501.5200, L501.2300 #### [facility] [place], [address] XR FINGER THUMB 3 VIEWS LEFT on 03-18-2024 XR FINGER THUMB 3 VIEWS LEFT ORIGINAL EXAMINATION: THREE XRAY VIEWS OF THE LEFT THUMB 03/18/2024 4:01 pm COMPARISON: None. HISTORY: ORDERING SYSTEM PROVIDED HISTORY: Reason for Exam: pain TECHNIQUE: AP, lateral, and oblique views. FINDINGS: There are rings partially obscuring the proximal phalanges of 2nd, 3rd, and 4th digits. There is punctate density projected adjacent the tip of ulnar styloid process possibly calcification or sequela of remote trauma. Joint spaces and articular surfaces are preserved and in gross anatomic alignment. There is no acute cortical discontinuity. IMPRESSION: 1. There is no acute fracture or dislocation. Interpreted by: Sorin Segal Preliminary Report By: Sorin Segal Electronically signed By Sorin Segal Dictated Date: 03/18/2024 4:04:15 PM Prelim Date: 03/18/2024 4:09:39 PM Sign Date: 03/18/2024 4:09:39 PM Ordering Provider: JENA SWANSON [facility] ([place]) XR FINGER THUMB 3 VIEWS LEFT on 02-25-2024 XR FINGER THUMB 3 VIEWS LEFT ORIGINAL EXAMINATION: THREE XRAY VIEWS OF THE LEFT THUMB 02/25/2024 6:39 pm COMPARISON: None. HISTORY: ORDERING SYSTEM PROVIDED HISTORY: Reason for Exam: pain FINDINGS: There is no evidence of acute fracture. There is normal alignment. No acute joint abnormality. No focal osseous lesion. No focal soft tissue abnormality. Tiny hyperdensity in the skin of the thumb at the volar aspect of the interphalangeal joint, probably a foreign body. IMPRESSION: 1. No acute osseous abnormality. 2. Tiny hyperdensity in the skin of the thumb at the volar aspect of the interphalangeal joint, probably a foreign body. Interpreted by: Maurisio Naik Preliminary Report By: Maurisio Naik Electronically signed By Maruisio Naik Dictated Date: 02/25/2024 6:43:47 PM Prelim Date: 02/25/2024 6:46:27 PM Sign Date: 02/25/2024 6:46:27 PM Ordering Provider: CARMEN BROWN [facility] ([place]) Emergency Department Summary on 02-23-2024 Emergency Department Summary [facility] Medical Records Department [address] [place] [address] Emergency Department Summary 02/23/24 MR#: [id number] Acct: [id number] Name: DELON HAJI Rep #: [id number] : 1990 33 From: Bradley Leach DO PCP: Care Physician,No Primary Status:REG ER Location: ED HPI History of Present Illness HPI Narrative: Patient is a 33-year-old female with a past medical history of substance abuse, depression, seizures who presents to the emergency department chief complaint of left thumb pain. Patient states that yesterday she slammed her thumb in a door and noted that the pain had been increasing throughout the rest the day and worsened today prompting her to come here for further evaluation management. Patient states that she had been taking ibuprofen and Tylenol at home for pain control however this was not helping her symptoms prompting her to come here for further evaluation management. Patient denies any pain anywhere else Chief Complaint: Upper Extremity Injury [facility] Medical History Vaginal delivery History of pre-term labor Smoking addiction History of substance abuse Seizure disorder History of drug abuse Chlamydia Depression Home Medications ???Medication ???Instructions ???Recorded ???Last Taken ???Type lamotrigine 200 mg tablet 700 mg PO DAILY 06/04/21 06/09/22 08:30 History (Lamictal) Allergy/AdvReac Type Severity Reaction Status Date / Time tomato AdvReac Vomiting Verified 02/23/24 13:42 Family History Other Alcohol abuse Arthritis Depression Seizures Social History Smoking Status: Current every day smoker tobacco type: cigarettes alcohol intake: current alcohol intake frequency: a few times a week details: Hx of alcohol abuse substance use type: does not use, former substance user Date of last use: 2011 , opiates, painkillers and methamphetamine what type of physical activity do you participate in: walking frequency: daily ROS ROS ED ROS Narrative Constitutional: Denies any fevers, chills, headaches, Maurisio, dizziness Eyes: Denies any change in vision double vision blurry vision Cardiovascular: Denies chest pain Neurological: Denies numbness, he does come tingling Musculoskeletal: Complains of left thumb pain as noted above Skin: Denies rashes or lesions EXAM Physical Exam Narrative Exam Narrative: General: Patient lying in bed rest comfortably did not appear to be in acute distress Head: Atraumatic, normocephalic Eyes: PERRL bilaterally, EOMI bilaterally, no conjunctival injection noted Neck: Soft, supple, trachea midline Cardiovascular: Regular rate and rhythm no murmurs gallops rubs noted Respiratory: Clear to auscultation bilaterally no rales rhonchi or wheezing noted Extremities: +5/5 strength noted in the bilateral upper and lower extremities, no pedal edema on exam, patient was able to get me the okay sign thumbs up sign and oppose her thumb to her pinky bilaterally patient does have a small subungual hematoma that is roughly around 20% of her nail. Neurological: Patient has sensation in the median, ulnar and radial nerve distributions bilaterally. Patient follow commands knew that she was at [facility] year is 2023 Skin: Warm, dry, intact Const Vital Signs: 02/23/24 13:42 Temperature 96.9 F L Temperature Source Temporal Pulse Rate 96 Respiratory Rate 20 H Blood Pressure 124/75 H Blood Pressure Mean 91 Pulse Ox 100 Oxygen Delivery Method Room Air MDM MDM MDM Narrative Medical decision making narrative: Patient is a 33-year-old female who presented to the emergency department with a chief complaint of left thumb pain. She will have x-rays obtained here and then be reevaluated. Patient was given pain meds here. Patient is x-ray reviewed and showed normal examination of the hand. Discussed results with patient and significant other bedside. She was encouraged to ice and use ibuprofen Tylenol [id number] for pain control. She is agreeable this plan she like to go home. She will be referred to a primary care physician. All question concerns answered she was discharged home in stable condition. She was encouraged return with worsening symptoms or other concerns. Discharge Plan Triage Chief Complaint: Upper Extremity Injury ED Provider: Bradley Leach Dx/Rx/DC Orders Clinical Impression: Pain of left thumb Prescriptions: No Action lamotrigine [Lamictal] 200 mg Tablet 700 mg PO DAILY Primary Care Provider: Care Physician,No Primary Referrals: Care Physician,No Primary [Primary Care Provider] - Activity Restrictions/Additiona l Instructions: Ice, use ibuprofen/ (more content not included)... Normal [facility] Hand Min 3 Viewson 4 Hand Min 3 Views [facility] Imaging Services [address] [place] [address] Hand Min 3 Views MR#: [id number] Acct: [id number] Name: DELON HAJI Rep #: [id number] : 1990 F 33 From: Jaime owen MD PCP: Care Physician,No Primary Status: REG ER Study: Hand Min 3 Views Date of Exam: 02/23/24 Exam# [id number] Ordering Dr: Bradley Leach DO [id number] STUDY: X-RAY - LEFT HAND REASON FOR EXAM: Female, 33 years old. Slammed thumb in door TECHNIQUE: 3 view(s) of the hand. COMPARISON: None. FINDINGS: Normal radiocarpal articulation. Normal distal radioulnar joint. Normal visualized carpal bones. Normal carpal articulations Normal carpometacarpal articulation of the thumb. Normal second through fifth carpometacarpal joints. Normal metacarpi. Normal metacarpophalangeal joint of the thumb. Normal interphalangeal joint of the thumb. Normal proximal and distal phalanges of the thumb. Normal metacarpophalangeal joints of the second through fifth fingers. Normal proximal and distal interphalangeal joints of the second through fifth fingers. Normal phalanges of the second through fifth fingers. The soft tissue structures are unremarkable. RAD/Hand Min 3 Views IMPRESSION: Normal x-ray examination of the hand. Electronically Signed: Jaime Tabor MD at 14:46 EDT , CC: Dr. Bradley Leach, DO; No Primary Care Physician District Plant Engineer: Signed Normal [facility] Bacteria Wnd Culton 01-06-20 24 Bacteria identified Cx Nom (Wound) ORGANISM ID: 1 Many Methicillin-RESISTANT Staphylococcus aureus (MRSA) GRAM STAIN: Few Gram positive cocci No Polymorphonuclear Leukocytes Moderate Red Blood Cells ORGANISM ID: 1 (METHICILLIN RESISTANT STAPHYLOCOCCUS AUREUS) -- ANTIBIOTIC INTERPRETATION VANESSA STATUS REFERENCE RANGE -- Oxacillin R >=4 F Susceptible <=2 , Resistant >2 Oxacillin resistant Staphylococci are resistant to all beta-lactam antibiotics (except new cephalosporins with anti-MRSA activity i.e. ceftaroline) Erythromycin R >=8 F Susceptible <=0.5 , Intermediate >.5 , Resistant >4 Clindamycin S 0.25 F Susceptible <=0.5 , Intermediate >.5 , Resistant >2 Testing for inducible clindamycin resistance was performed. Trimeth sulfameth S <=10 F Susceptible <=40 , Resistant >40 Vancomycin S 1 F Susceptible <=2 , Intermediate >2 , Resistant >8 Daptomycin S 0.25 F Susceptible <=1 , Nonsusceptible >1 Linezolid S 2 F Susceptible <=4 , Resistant >4 Rifampin S <=0.5 F Susceptible <=1 , Intermediate >1 , Resistant >2 Rifampin should not be used alone for antimicrobial therapy. Tetracycline S <=1 F Susceptible <=4 , Intermediate >4 , Resistant >8 Doxycycline S <=0.5 F Susceptible <=4 , Intermediate >4 , Resistant >8 Abnormal [facility] Comment on above: Performed By: #### [id number] ####[facility] [id number] [address] [place] [id number] [place] CNOVon 11-12-2023 CNOV Office Visit ([facility] ) DELON HAJI ([id number]) 1990 F Date Time Provider Department 11/12/23 11:00 AM JAYLYN CHARLTON [facility] During your visit today, we recorded the following information about you: Temperature Pulse Respiration Blood pressure 98 degrees 69/minute 16/minute 128/64 Weight 87.5 kg Jaylyn Charlton PA 11/12/2023 11:14 AM Signed 33-year-old female presents for right thumb injury. Patient states that she had a blister/abscess on her right thumb and punctured it with a needle to pop it a few days ago. She now has redness, swelling and significant pain in the thumb. She states today she is unable to move it due to pain. She states pain is 10/10. On exam, patient has swelling, redness, warmth, fluctuance and significant tenderness of the pulp of the distal right thumb. Concern for possible felon. Patient will be sent to the emergency room for further evaluation. Patient agreeable to this plan. She will go to [facility]. Allergies As of Date: 11/12/2023 Noted Allergy Reaction KEFLEX (CEPHALEXIN) 09/27/2023 8 - GI Upset TOMATO 04/02/2022 8 - GI Upset Date Reviewed: 11/12/2023 Reviewed by: Jacqui Benton - Fully Assessed Reason for Visit: Thumb Injury [2773] Cmt: Right thumb pain. X3 days Primary Visit Diagnosis:Procedure not carried out [Z53.9] Prescriptions as of 11/12/2023 - lamoTRIgine ER (LAMICTAL XR) 300 mg 24 hr tablet Take 600 mg by mouth daily at bedtime. - lamoTRIgine ER (LAMICTAL XR) 100 mg 24 hr tablet Take 1 tablet by mouth at bedtime. (take with 600 mg dose total 700 mg daily) - penicillin V potassium (V-CILLIN, VEETIDS) 500 mg tablet Take 1 tablet by mouth four times daily. - sertraline (ZOLOFT) 25 mg tablet Take 1 tablet by mouth once daily. - levETIRAcetam (KEPPRA) 500 mg tablet Take 1 tablet by mouth daily at bedtime. - levETIRAcetam (KEPPRA) 750 mg tablet Take 2 tablets by mouth once daily. - ibuprofen (MOTRIN) 600 mg tablet TAKE 1 TABLET EVERY 6 HOURS NEEDED for mild pain (1 (ONE) to3/ TEN) - levetiracetam (KEPPRA ORAL) Take by mouth. - omeprazole (PRILOSEC) 20 mg capsule Take 1 capsule by mouth once daily. - Kstqpvvs-Nw-Hgm-Fe-FA tab Take 1 tablet by mouth once daily. - Ferrous Sulfate, Dried (SLOW RELEASE IRON) 160 mg (50 mg iron) TbER Take 1 tablet by mouth once daily. - folic acid 1 mg tablet Take 1 tablet by mouth once daily. Problem List As Of Date 11/12/2023 Noted Resolved Encounter for supervision of other normal pregn*09/07/2014 05/19/2018 Seizure disorder during (HCC) [O99.35*09/23/2014 12/13/2018 Custody issue [Z65.3] 01/14/2017 History of drug abuse [F19.11] 01/14/2017 History of depression [Z86.59] 01/14/2017 Tobacco use during , antepartum [O99.3*01/14/2017 12/13/2018 History of macrosomia in in prior pregna*01/14/2017 12/13/2018 History of epilepsy [Z86.69] 01/14/2017 05/19/2018 Patient requested diagnostic testing [Z01.89] 01/14/2017 05/19/2018 Chlamydia infection affecting [O98.81*01/19/2017 05/19/2018 History of chlamydia [Z86.19] 05/19/2018 Dichorionic diamniotic twin , antepart*05/19/2018 12/13/2018 IUGR (intrauterine growth restriction) affectin*09/19/2018 12/13/2018 Encounter Status:Closed by JAYLYN CHARLTON on 11/12/23 [facility] CNCOon 09-28-2023 CNCO Letter Text Normal [facility] CNPNon 09-28-2023 CNPN Telephone ([facility]) DELON HAJI ([id number]) 1990 F Date Time Provider Department 09/28/23 BECKY JULES During your visit today, we recorded the following information about you: Rayna Tanner RN 09/28/2023 3:56 PM Signed Patient called in requesting a note saying that she can return to work. 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 OLMAN Yousif Danelle, RN 09/28/2023 4:46 PM Signed Patient called and notified that it is on MyChart. Patient states that she does not have access to F mychart. Letter printed and placed at front desk person for pickup tomorrow per patient request. Rayna Tanner RN Allergies As of Date: 09/28/2023 Noted Allergy Reaction KEFLEX (CEPHALEXIN) 09/27/2023 8 - GI Upset TOMATO 04/02/2022 8 - GI Upset Date Reviewed: 09/27/2023 Reviewed by: Giuliana Bird RN - Fully Assessed Reason for Visit: Patient Question [4497] Prescriptions as of 09/28/2023 - lamoTRIgine ER (LAMICTAL XR) 300 mg 24 hr tablet Take 600 mg by mouth daily at bedtime. - lamoTRIgine ER (LAMICTAL XR) 100 mg 24 hr tablet Take 1 tablet by mouth at bedtime. (take with 600 mg dose total 700 mg daily) - penicillin V potassium (V-CILLIN, VEETIDS) 500 mg tablet Take 1 tablet by mouth four times daily. - sertraline (ZOLOFT) 25 mg tablet Take 1 tablet by mouth once daily. - levETIRAcetam (KEPPRA) 500 mg tablet Take 1 tablet by mouth daily at bedtime. - levETIRAcetam (KEPPRA) 750 mg tablet Take 2 tablets by mouth once daily. - ibuprofen (MOTRIN) 600 mg tablet TAKE 1 TABLET EVERY 6 HOURS NEEDED for mild pain (1 (ONE) to3/ TEN) - levetiracetam (KEPPRA ORAL) Take by mouth. - omeprazole (PRILOSEC) 20 mg capsule Take 1 capsule by mouth once daily. - Wjhmdpqp-Jh-Zky-Fe-FA tab Take 1 tablet by mouth once daily. - Ferrous Sulfate, Dried (SLOW RELEASE IRON) 160 mg (50 mg iron) TbER Take 1 tablet by mouth once daily. - folic acid 1 mg tablet Take 1 tablet by mouth once daily. Problem List As Of Date 09/28/2023 Noted Resolved Encounter for supervision of other normal pregn*09/07/2014 05/19/2018 Seizure disorder during (HCC) [O99.35*09/23/2014 12/13/2018 Custody issue [Z65.3] 01/14/2017 History of drug abuse [F19.11] 01/14/2017 History of depression [Z86.59] 01/14/2017 Tobacco use during , antepartum [O99.3*01/14/2017 12/13/2018 History of macrosomia in in prior pregna*01/14/2017 12/13/2018 History of epilepsy [Z86.69] 01/14/2017 05/19/2018 Patient requested diagnostic testing [Z01.89] 01/14/2017 05/19/2018 Chlamydia infection affecting [O98.81*01/19/2017 05/19/2018 History of chlamydia [Z86.19] 05/19/2018 Dichorionic diamniotic twin , antepart*05/19/2018 12/13/2018 IUGR (intrauterine growth restriction) affectin*09/19/2018 12/13/2018 Encounter Status:Closed by RAYNA TANNER on 09/28/23 [facility] CNOVon 09-27-2023 CNOV Office Visit (ORTHWS ) DELON HAJI ([id number]) 1990 F Date Time Provider Department 09/27/23 1:30 PM BECKY JULES During your visit today, we recorded the following information about you: Giuliana Bird RN 09/27/2023 2:49 PM Signed Patient presents with: Left Hand - New, Fracture: Middle finger AMB ROOMING INTAKE FLOWSHEET DATA Pain Pain Level: 7 Pain Location: Hand-Left (middle finger) Duration Amount of Time: 1.5 Duration Units: Weeks Frequency: Continuous Pt with injury to left middle finger. Pt was prescribed keflex for infection of area but only completed 1 day d/t nausea from medication. Not taking anything else at home for pain. Becky Jules PA-C 10/05/2023 9:08 AM Addendum Becky Jules PA-C Department of Orthopaedics Orthopaedics [address] [place] [id number] Dept: [phone] Dept September 27, 2023 CHIEF COMPLAINT: New and Fracture of the Left Hand (Middle finger) Ms. Delon Haji is a 33 year old female who presents with an injury to her left middle finger which occurred at work on September 21. Patient states she was helping a coworker with the machine that was jammed, and an additional part came down and struck the top of her finger. She was seen in the emergency room and placed in a finger splint and given an oral antibiotic, she discontinued the antibiotic as it caused GI upset. Pain today is a 7 out of 10 continuous aching. She is right-hand dominant. Denies any previous left hand injuries. She is a young daughter, diaper changes are the most painful for her. This is [facility]. ASSESSMENT: S62.555V Closed fracture of tuft of distal phalanx of finger (primary encounter diagnosis) M79.645 Pain of finger of left hand PLAN: She has a tuft fracture of the left middle digit. Can continue with the finger splint as needed to protect the finger but encouraged her to remove the splint and work on gentle range of motion. We discussed that the fracture should heal in 2 to 3 weeks. She can follow-up on an as-needed basis. The patient continues to work and feels that she is able to do her full job. Ms. Delon Haji was advised as to contrast therapies and/or to take analgesics/anti-inflam matories as needed and all contraindications were reviewed. OBJECTIVE: Ms. Delon Haji is a pleasant 33 year old in no apparent distress. Gen:LMP 02/28/2018 nl development, non obese, no deformities ENT: Normocephalic, normal hearing, moist mucosa CV: Pulses:Radial= 2+ and symmetric, capillary refill < 2 secs, no peripheral edema/varicosities Skin: no rash, bruising or lesions. Good turgor. Psych: cooperative and appropriate, alert and oriented x 3, good mood and affect. Musculoskeletal: Left middle digit with mild but appropriate edema, nail is clean dry and intact, no lacerations of the skin. Tenderness to palpation over the left middle distal phalanx. Patient is able to form a loose composite fist, can flex and extend the left middle digit at the MCP, PIP and DIP joints. Subjective numbness of the pad of the left middle digit. Imaging: IMPRESSION: Suspect nondisplaced fracture tuft of the LEFT 3rd distal phalanx. District Plant Engineer: PSCB Transcribe Date/Time: Sep 22 2023 11:32A Dictated by : JANIE MCDOWELL DO This examination was interpreted and the report reviewed and electronically signed by: JANIE MCDOWELL DO on Sep 22 2023 11:35AM EST Results-Findings * * *Final Report* * * DATE OF EXAM: Sep 22 2023 11:29AM WOX [id number] - XR DIGIT 3V FRONTAL/LAT/OBL LT / PROCEDURE REASON: Injury of finger of left hand, initial encounter * * * * Physician Interpretation * * * * EXAMINATION: XR DIGIT 3V FRONTAL/LAT/OBL LT PATIENT/TECHNOLOGIST PROVIDED HISTORY: smashed her left long finger at work last night CLINICAL INFORMATION: 33 years old Female with Injury of finger of left hand, initial encounter TECHNIQUE: XR DIGIT 3V FRONTAL/LAT/OBL LT Laterality: LEFT Number of different views (projections): 3 COMPARISON: None. RESULT: Suspect nondisplaced fracture tuft of the 3rd distal phalanx only visualized on the frontal view. Visualized joint spaces are maintained. Supporting Subjective Information Below: Past Surgical History: PAST SURGICAL HISTORY Procedure Laterality Date NONE Medications: Current Outpatient Medications Medication Sig lamoTRIgine ER (LAMICTAL XR) 300 mg 24 [...] tablet by mouth once daily. (Patient not gloria (more content not included)... Normal [facility] CNOVon 09-24-2023 CNOV Office Visit (WS ) DELON HAJI ([id number]) 1990 F Date Time Provider Department 09/24/23 11:00 AM VIET ESPARZARADHA During your visit today, we recorded the following information about you: Viet Esparza V, DO 09/27/2023 8:56 AM Signed opened in error- Viet Esparza V, DO 09/27/2023 8:56 AM Signed opened in error no charge, visit rescheduled. Referring Provider: MEG ORTEZ [[id number]] Allergies As of Date: 09/24/2023 Noted Allergy Reaction TOMATO 04/02/2022 8 - GI Upset Date Reviewed: 09/22/2023 Reviewed by: Carmen Brush - Fully Assessed Reason for Visit: Left middle finger injury REF: Alban Ortez x-ray: 09/22/2023 [Other] Visit Diagnoses:Injury of finger of left hand, initial encounter [S69.92XA] Closed fracture of tuft of distal phalanx of finger [S62.639A] Order(s):CONSULT TO ORTHOPAEDICS [9026] Order #: [id number]: 1 Prescriptions as of 09/27/2023 - cephALEXin (KEFLEX) 500 mg capsule Take 1 capsule by mouth four times daily for 5 days. - lamoTRIgine ER (LAMICTAL XR) 300 mg 24 hr tablet Take 600 mg by mouth daily at bedtime. - lamoTRIgine ER (LAMICTAL XR) 100 mg 24 hr tablet Take 1 tablet by mouth at bedtime. (take with 600 mg dose total 700 mg daily) - penicillin V potassium (V-CILLIN, VEETIDS) 500 mg tablet Take 1 tablet by mouth four times daily. - sertraline (ZOLOFT) 25 mg tablet Take 1 tablet by mouth once daily. - levETIRAcetam (KEPPRA) 500 mg tablet Take 1 tablet by mouth daily at bedtime. - levETIRAcetam (KEPPRA) 750 mg tablet Take 2 tablets by mouth once daily. - ibuprofen (MOTRIN) 600 mg tablet TAKE 1 TABLET EVERY 6 HOURS NEEDED for mild pain (1 (ONE) to3/ TEN) - levetiracetam (KEPPRA ORAL) Take by mouth. - omeprazole (PRILOSEC) 20 mg capsule Take 1 capsule by mouth once daily. - Rsdoqrqf-Hh-Fsl-Fe-FA tab Take 1 tablet by mouth once daily. - Ferrous Sulfate, Dried (SLOW RELEASE IRON) 160 mg (50 mg iron) TbER Take 1 tablet by mouth once daily. - folic acid 1 mg tablet Take 1 tablet by mouth once daily. Problem List As Of Date 09/24/2023 Noted Resolved Encounter for supervision of other normal pregn*09/07/2014 05/19/2018 Seizure disorder during (HCC) [O99.35*09/23/2014 12/13/2018 Custody issue [Z65.3] 01/14/2017 History of drug abuse [F19.11] 01/14/2017 History of depression [Z86.59] 01/14/2017 Tobacco use during , antepartum [O99.3*01/14/2017 12/13/2018 History of macrosomia in in prior pregna*01/14/2017 12/13/2018 History of epilepsy [Z86.69] 01/14/2017 05/19/2018 Patient requested diagnostic testing [Z01.89] 01/14/2017 05/19/2018 Chlamydia infection affecting [O98.81*01/19/2017 05/19/2018 History of chlamydia [Z86.19] 05/19/2018 Dichorionic diamniotic twin , antepart*05/19/2018 12/13/2018 IUGR (intrauterine growth restriction) affectin*09/19/2018 12/13/2018 Other instructions from your clinician: opened in error- Encounter Status:Closed by VIET ESPARZA V on 09/27/23 [facility] CNOVon 09-22-2023 [facility] DELON HAJI ([id number]) 1990 F Date Time Provider Department 09/22/23 11:00 AM MEG ORTEZ [facility] During your visit today, we recorded the following information about you: Temperature Pulse Respiration Blood pressure 98.2 degrees 88/minute 16/minute 110/64 Weight 88.5 kg Meg Ortez APRN.CNP 09/22/2023 12:02 PM Signed This note was created using GraphLabriter. Subjective Delonnetta Haji is a 33 year old female. 33 year old female with PMH epilepsy presents for finger injury Acute onset yesterday Left middle finger +bruising +swelling +reduced and limited ROM States that she Smashed middle finger between two steel bars, each weighing approximately 30 lbs Denies accompanying injury Denies neck or back pain Denies head injury Denies blood thinners RIght hand dominant The history is provided by the patient. No manager integrated was used. Musculoskeletal Problem This is a new problem. The current episode started yesterday. The problem occurs constantly. The problem has been unchanged. Pertinent negatives include no abdominal pain, anorexia, arthralgias, change in bowel habit, chest pain, chills, congestion, coughing, diaphoresis, fatigue, fever, headaches, joint swelling, myalgias, nausea, neck pain, numbness, rash, sore throat, swollen glands, urinary symptoms, vertigo, visual change, vomiting or weakness. Exacerbated by: touching and movement. She has tried nothing for the symptoms. The treatment provided no relief. PAST MEDICAL HISTORY Diagnosis Date Depression Epilepsy [...] 600 mg dose total 700 mg daily) cephALEXin (KEFLEX) 500 mg capsule Take 1 capsule by mouth four times daily for 5 days. penicillin V potassium [...] daily. (Patient not taking: Reported on 03/03/2019) Ucnzuebc-Yb-Lhx-Fe-FA tab Take 1 tablet by mouth once [...] Crystal Meth Comment: none x 2 yrs Review of Systems Constitutional: Negative for chills, diaphoresis, fatigue and fever. HENT: Negative for congestion and sore throat. Eyes: Negative for photophobia, pain, discharge, redness, itching and visual disturbance. Respiratory: Negative for apnea, cough, choking and chest tightness. Cardiovascular: Negative for chest pain. Gastrointestinal: Negative for abdominal pain, anorexia, change in bowel habit, nausea and vomiting. Musculoskeletal: Negative for arthralgias, joint swelling, myalgias and neck pain. Left middle finger Skin: Negative for rash. Allergic/Immunologic: Negative for environmental allergies, food allergies and immunocompromised state. Neurological: Negative for vertigo, weakness, numbness and headaches. Hematological: Negative for adenopathy. Does not bruise/bleed easily. Psychiatric/Behavioral : Negative for agitation and behavioral problems. Objective BP 110/64 Pulse 88 Temp 36.8 ?C (98.2 ?F) Resp 16 Wt 88.5 kg (195 lb) LMP 02/28/2018 SpO2 98% BMI 28.80 kg/m? Physical Exam Vitals and (more content not included)... Normal [facility] XR DIGIT 3V FRONTAL/LAT/OBL LTon 09-22-2023 XR DIGIT 3V FRONTAL/LAT/OBL LT * * *Final Report* * * DATE OF EXAM: Sep 22 2023 11:29AM WOX [id number] - XR DIGIT 3V FRONTAL/LAT/OBL LT / PROCEDURE REASON: Injury of finger of left hand, initial encounter * * * * Physician Interpretation * * * * EXAMINATION: XR DIGIT 3V FRONTAL/LAT/OBL LT PATIENT/TECHNOLOGIST PROVIDED HISTORY: smashed her left long finger at work last night CLINICAL INFORMATION: 33 years old Female with Injury of finger of left hand, initial encounter TECHNIQUE: XR DIGIT 3V FRONTAL/LAT/OBL LT Laterality: LEFT Number of different views (projections): 3 COMPARISON: None. RESULT: Suspect nondisplaced fracture tuft of the 3rd distal phalanx only visualized on the frontal view. Visualized joint spaces are maintained. IMPRESSION: Suspect nondisplaced fracture tuft of the LEFT 3rd distal phalanx. District Plant Engineer: DARREN Transcribe Date/Time: Sep 22 2023 11:32A Dictated by : JANIE MCDOWELL DO This examination was interpreted and the report reviewed and electronically signed by: JANIE MCDOWELL DO on Sep 22 2023 11:35AM EST [id number] Normal [facility] XR Finger - left AP and Late ral and obliqueon 09-22-2023 IMPRESSION: Suspect nondisplaced fracture tuft of the LEFT 3rd distal phalanx. District Plant Engineer: DARREN Transcribe Date/Time: Sep 22 2023 11:32A Dictated by : JANIE MCDOWELL DO This examination was interpreted and the report reviewed and electronically signed by: JANIE MCDOWELL DO on Sep 22 2023 11:35AM EST DIVISION OF RADIOLOGY * * *Final Report* * * DATE OF EXAM: Sep 22 2023 11:29AM WOX [id number] - XR DIGIT 3V FRONTAL/LAT/OBL LT / PROCEDURE REASON: Injury of finger of left hand, initial encounter * * * * Physician Interpretation * * * * EXAMINATION: XR DIGIT 3V FRONTAL/LAT/OBL LT PATIENT/TECHNOLOGIST PROVIDED HISTORY: smashed her left long finger at work last night CLINICAL INFORMATION: 33 years old Female with Injury of finger of left hand, initial encounter TECHNIQUE: XR DIGIT 3V FRONTAL/LAT/OBL LT Laterality: LEFT Number of different views (projections): 3 COMPARISON: None. RESULT: Suspect nondisplaced fracture tuft of the 3rd distal phalanx only visualized on the frontal view. Visualized joint spaces are maintained. DIVISION [facility] RADIOLOGY [facility] * * *Final Report* * * DATE OF EXAM: Sep 22 2023 11:29AM WOX [id number] - XR DIGIT 3V FRONTAL/LAT/OBL LT / PROCEDURE REASON: Injury of finger of left hand, initial encounter * * * * Physician Interpretation * * * * EXAMINATION: XR DIGIT 3V FRONTAL/LAT/OBL LT PATIENT/TECHNOLOGIST PROVIDED HISTORY: smashed her left long finger at work last night CLINICAL INFORMATION: 33 years old Female with Injury of finger of left hand, initial encounter TECHNIQUE: XR DIGIT 3V FRONTAL/LAT/OBL LT Laterality: LEFT Number of different views (projections): 3 COMPARISON: None. RESULT: Suspect nondisplaced fracture tuft of the 3rd distal phalanx only visualized on the frontal view. Visualized joint spaces are maintained. IMPRESSION IMPRESSION: Suspect nondisplaced fracture tuft of the LEFT 3rd distal phalanx. District Plant Engineer: DARREN Transcribe Date/Time: Sep 22 2023 11:32A Dictated by : JANIE MCDOWELL DO This examination was interpreted and the report reviewed and electronically signed by: JANIE MCDOWELL DO on Sep 22 2023 11:35AM [facility] Radiology Study observation (narrative) [facility] XR Finger - left AP and Late ral and obliqueOrdered By: Ccf Provider on 09-22-2023 [facility] Rogelio 08-25-2023 Lamotrigine Lvl 3.5 UG/ML Normal 2.0-20.0 Formerly [facility], [facility] ([place]) Comment on above: Result Comment: Dete ction Limit = 1.0 Performed At: [facility] [id number] Asim Montes MD Ph:[phone] Performed By: #### M DW, CMP, ANEU, LAC, [id number], GFR, PREGS, CBC, MG, ADIFF ####[address] [address] .Auto Diffon 08-21-2023 Basophil, Absolute 0.0 10 3/mcL Normal 0.0-0.2 [facility] ([place]) Comment on above: Performed By: #### M DW, CMP, ANEU, LAC, [id number], GFR, PREGS, CBC, MG, ADIFF #### [address] [address] Basophils/100 WBC (Bld) 0.3 % Normal 0.0-2.5 [facility] ([place]) Comment on above: Performed By: #### M DW, CMP, ANEU, LAC, [id number], GFR, PREGS, CBC, MG, ADIFF #### [address] [address] Eosinophil, Absolute 0.0 10 3/mcL Normal 0.0-0.4 [facility] ([place]) Comment on above: Performed By: #### M DW, CMP, ANEU, LAC, 460692, GFR, PREGS, CBC, MG, ADIFF #### [address] [address] Eosinophils/100 WBC (Bld) 0.3 % Normal 0.0-7.0 [facility] ([place]) Comment on above: Performed By: #### M DW, CMP, ANEU, LAC, 050804, GFR, PREGS, CBC, MG, ADIFF #### [address] [address] Lymphocyte, Absolute 1.1 10 3/mcL Normal 0.8-3.9 [facility] ([place]) Comment on above: Performed By: #### M DW, CMP, ANEU, LAC, 285446, GFR, PREGS, CBC, MG, ADIFF #### [address] [address] Lymphocytes/100 WBC (Bld) 9.3 % Low 10.0-50.0 [facility] ([place]) Comment on above: Performed By: #### M DW, CMP, ANEU, LAC, [id number], GFR, PREGS, CBC, MG, ADIFF #### [address] [address] Monocyte, Absolute 0.5 10 3/mcL Normal 0.2-1.0 [facility] ([place]) Comment on above: Performed By: #### M DW, CMP, ANEU, LAC, 186046, GFR, PREGS, CBC, MG, ADIFF #### [address] [address] Monocytes/100 WBC (Bld) 4.2 % Normal 1.7-13.0 [facility] ([place]) Comment on above: Performed By: #### M DW, CMP, ANEU, LAC, 673241, GFR, PREGS, CBC, MG, ADIFF #### [address] [address] Neutrophils/100 WBC (Bld) 85.9 % High 37.0-80.0 [facility] ([place]) Comment on above: Performed By: #### M DW, CMP, ANEU, LAC, [id number], GFR, PREGS, CBC, MG, ADIFF #### [address] [address] .GFRon 08-21-2023 GFR 100 ml/min/1.73sqm Normal [facility] ([place]) Comment on above: Result Comment: GFR Population mean for , Non- Americans Ages 20-29 = 116 mL/min/1.73 sq.m. Ages 30-39 = 107 mL/min/1.73 sq.m. Ages 40-49 = 99 mL/min/1.73 sq.m. Ages 50-59 = 93 mL/min/1.73 sq.m. Ages 60-69 = 85 mL/min/1.73 sq.m. Ages 70+ = 75 mL/min/1.73 sq.m. Chronic Kidney Disease: Less than 60 mL/min/1.73 square meters End Stage Renal Disease: Less than 15 mL/min/1.73 square meters Performed By: #### M DW, CMP, ANEU, LAC, [id number], GFR, PREGS, CBC, MG, ADIFF ####[facility] [place], [place] [address] GFR Non- 83 ml/min/1.73sqm Normal [facility] ([place]) Comment on above: Result Comment: GFR Population mean for , Non- Americans Ages 20-29 = 116 mL/min/1.73 sq.m. Ages 30-39 = 107 mL/min/1.73 sq.m. Ages 40-49 = 99 mL/min/1.73 sq.m. Ages 50-59 = 93 mL/min/1.73 sq.m. Ages 60-69 = 85 mL/min/1.73 sq.m. Ages 70+ = 75 mL/min/1.73 sq.m. Chronic Kidney Disease: Less than 60 mL/min/1.73 square meters End Stage Renal Disease: Less than 15 mL/min/1.73 square meters Performed By: #### M DW, CMP, ANEU, LAC, [id number], GFR, PREGS, CBC, MG, ADIFF ####[facility] [place], [place] [address] .MDWon 08-21-2023 Monocyte Distribution Width 15.17 Normal 0.00-20.00 [facility] ([place]) Comment on above: Result Comment: For ED adult patients suspected of sepsis, MDW<=20.0 does not rule out sepsis or risk of sepsis Performed By: #### M DW, CMP, ANEU, LAC, [id number], GFR, PREGS, CBC, MG, ADIFF #### [place] [address] [place], [place] [address] .NEUABSon 08-21-2023 Neutrophil, Absolute 9.8 10 3/mcL High 2.9-6.2 [facility] ([place]) Comment on above: Performed By: #### M DW, CMP, ANEU, LAC, 918604, GFR, PREGS, CBC, MG, ADIFF #### [facility] [address] [place], [place] [address] .Urinalysis Microscopic (AO) on 08-21-2023 UA Bacteria 2+ /hpf Abnormal [facility] ([place]) Comment on above: Performed By: #### U AMICAO, UDRUG, UA ####[address] [place], [place] [address] UA Mucous Trace Normal [facility] ([place]) Comment on above: Performed By: #### U AMICAO, UDRUG, UA ####[address] [place], [place] [address] UA RBC None Seen Normal None Seen [facility] ([place]) Comment on above: Performed By: #### U AMICAO, UDRUG, UA ####[address] [place], [place] [address] UA Squam Epithelial 5-10 Abnormal None Seen [facility] ([place]) Comment on above: Performed By: #### U AMICAO, UDRUG, UA ####[address] [place], [place] [address] UA WBC 0-5 Abnormal None Seen [facility] ([place]) Comment on above: Performed By: #### U AMICAO, UDRUG, UA ####[address] [place], [place] [address] CBCon 08-21-2023 Erythrocyte distribution width (RBC) [Ratio] 13.3 % Normal 11.5-14.5 [facility] ([place]) Comment on above: Performed By: #### M DW, CMP, ANEU, LAC, [id number], GFR, PREGS, CBC, MG, ADIFF #### [address] [address] Hematocrit (Bld) [Volume fraction] 40.3 % Normal 37.0-47.0 [facility] ([place]) Comment on above: Performed By: #### M DW, CMP, ANEU, LAC, 424005, GFR, PREGS, CBC, MG, ADIFF #### [address] [place], [place] [address] Hgb 13.9 G/dL Normal 12.0-16.0 [facility] ([place]) Comment on above: Performed By: #### M DW, CMP, ANEU, LAC, 548565, GFR, PREGS, CBC, MG, ADIFF #### [address] [address] MCH (RBC) [Entitic mass] 32.2 pg High 27.0-31.2 [facility] ([place]) Comment on above: Performed By: #### M DW, CMP, ANEU, LAC, 447105, GFR, PREGS, CBC, MG, ADIFF #### [address] [address] MCHC 34.5 G/dL Normal 33.0-37.0 [facility] ([place]) Comment on above: Performed By: #### M DW, CMP, ANEU, LAC, 837655, GFR, PREGS, CBC, MG, ADIFF #### [address] [address] MCV (RBC) [Entitic vol] 93.2 fL Normal 80.0-94.0 [facility] ([place]) Comment on above: Performed By: #### M DW, CMP, ANEU, LAC, 261553, GFR, PREGS, CBC, MG, ADIFF #### [address] [address] Platelet 275 10 3/mcL Normal 130-400 [facility] ([place]) Comment on above: Performed By: #### M DW, CMP, ANEU, LAC, 968278, GFR, PREGS, CBC, MG, ADIFF #### [address] [address] Platelet mean volume (Bld) [Entitic vol] 7.3 fL Low 7.4-10.4 [facility] ([place]) Comment on above: Performed By: #### M DW, CMP, ANEU, LAC, 428207, GFR, PREGS, CBC, MG, ADIFF #### [address] [address] RBC 4.33 10 6/mcL Normal 4.20-5.40 [facility] ([place]) Comment on above: Performed By: #### M DW, CMP, ANEU, LAC, 710707, GFR, PREGS, CBC, MG, ADIFF #### [place] [address] WBC 11.4 10 3/mcL High 4.6-10.8 [facility] ([place]) Comment on above: Performed By: #### M DW, CMP, ANEU, LAC, 735940, GFR, PREGS, CBC, MG, ADIFF #### [address] [address] CMPon 08-21-2023 Albumin Level 4.1 G/dL Normal 3.5-5.0 [facility] ([place]) Comment on above: Performed By: #### M DW, CMP, ANEU, LAC, 888593, GFR, PREGS, CBC, MG, ADIFF #### [place] [address] Albumin/Globulin [Mass ratio] 1.4 {ratio} Normal 1.1-2.5 [facility] ([place]) Comment on above: Performed By: #### M DW, CMP, ANEU, LAC, 638627, GFR, PREGS, CBC, MG, ADIFF #### [place] [address] ALP [Catalytic activity/Vol] 83 U/L Normal 40-135 [facility] ([place]) Comment on above: Performed By: #### M DW, CMP, ANEU, LAC, 989962, GFR, PREGS, CBC, MG, ADIFF #### [place] [address] ALT [Catalytic activity/Vol] 19 U/L Normal 14-59 [facility] ([place]) Comment on above: Performed By: #### M DW, CMP, ANEU, LAC, 955006, GFR, PREGS, CBC, MG, ADIFF #### [place] [address] AST [Catalytic activity/Vol] 10 U/L Normal 10-40 [facility] ([place]) Comment on above: Performed By: #### M DW, CMP, ANEU, LAC, 211675, GFR, PREGS, CBC, MG, ADIFF #### [place] [id number] Bili Total 0.4 mg/dL Normal 0.2-1.0 [facility] ([place]) Comment on above: Result Comment: Use of this assay is not recommended for patients undergoing treatment with eltrombopag due to the potential for falsely elevated results. Performed By: #### M DW, CMP, ANEU, LAC, 230667, GFR, PREGS, CBC, MG, ADIFF #### [address] [address] BUN/Creatinine Ratio 16 ratio Normal 7-27 [facility] ([place]) Comment on above: Performed By: #### M DW, CMP, ANEU, LAC, 718405, GFR, PREGS, CBC, MG, ADIFF #### [address] [address] Calcium [Mass/Vol] 9.2 mg/dL Normal 8.4-10.2 [facility] ([place]) Comment on above: Performed By: #### M DW, CMP, ANEU, LAC, 491931, GFR, PREGS, CBC, MG, ADIFF #### [address] [address] Chloride [Moles/Vol] 106 mmol/L Normal 98-107 [facility] ([place]) Comment on above: Performed By: #### M DW, CMP, ANEU, LAC, 031837, GFR, PREGS, CBC, MG, ADIFF #### [address] [address] CO2 [Moles/Vol] 28 mmol/L Normal 22-29 [facility] ([place]) Comment on above: Performed By: #### M DW, CMP, ANEU, LAC, 280223, GFR, PREGS, CBC, MG, ADIFF #### [address] [address] Creatinine [Mass/Vol] 0.80 mg/dL Normal 0.55-1.02 [facility] ([place]) Comment on above: Performed By: #### M DW, CMP, ANEU, LAC, 821043, GFR, PREGS, CBC, MG, ADIFF #### [address] [address] Electrolyte Balance 8.0 mEq/L Normal 4.0-15.0 [facility] ([place]) Comment on above: Performed By: #### M DW, CMP, ANEU, LAC, 845988, GFR, PREGS, CBC, MG, ADIFF #### [address] [address] Globulin 3.0 G/dL Normal [facility] ([place]) Comment on above: Performed By: #### M DW, CMP, ANEU, LAC, 608527, GFR, PREGS, CBC, MG, ADIFF #### [address] [address] Glucose [Mass/Vol] 104 mg/dL Normal 70-105 [facility] ([place]) Comment on above: Performed By: #### M DW, CMP, ANEU, LAC, 115677, GFR, PREGS, CBC, MG, ADIFF #### [address] [address] Potassium [Moles/Vol] 4.4 mmol/L Normal 3.5-5.1 [facility] ([place]) Comment on above: Performed By: #### M DW, CMP, ANEU, LAC, 159822, GFR, PREGS, CBC, MG, ADIFF #### [address] [address] Sodium [Moles/Vol] 142 mmol/L Normal 136-145 [facility] ([place]) Comment on above: Performed By: #### M DW, CMP, ANEU, LAC, 097378, GFR, PREGS, CBC, MG, ADIFF #### [address] [address] Total Protein 7.1 G/dL Normal 6.4-8.2 [facility] ([place]) Comment on above: Performed By: #### M DW, CMP, ANEU, LAC, 909115, GFR, PREGS, CBC, MG, ADIFF #### [address] [address] Urea nitrogen [Mass/Vol] 13 mg/dL Normal 7-18 [facility] ([place]) Comment on above: Performed By: #### M DW, CMP, ANEU, LAC, 639981, GFR, PREGS, CBC, MG, ADIFF #### [address] [place] [address] [place], [place] [address] CT HEAD OR BRAIN W/O CONTRAS Ton 08-21-2023 CT HEAD OR BRAIN W/O CONTRAST ORIGINAL EXAMINATION: CT OF THE HEAD WITHOUT CONTRAST 08/21/2023 2:02 pm TECHNIQUE: CT of the head was performed without the administration of intravenous contrast. Automated exposure control, iterative reconstruction, and/or weight based adjustment of the mA/kV was utilized to reduce the radiation dose to as low as reasonably achievable. COMPARISON: None. HISTORY: ORDERING SYSTEM PROVIDED HISTORY: Reason for Exam: seizures FINDINGS: BRAIN/VENTRICLES: There is no acute intracranial hemorrhage, mass effect or midline shift. No abnormal extra-axial fluid collection. The edward-white differentiation is maintained without evidence of an acute infarct. There is no evidence of hydrocephalus. ORBITS: The visualized portion of the orbits demonstrate no acute abnormality. SINUSES: The visualized paranasal sinuses and mastoid air cells demonstrate no acute abnormality. SOFT TISSUES/SKULL: No acute abnormality of the visualized skull or soft tissues. IMPRESSION: No acute intracranial abnormality. Interpreted by: Alberto Holland MD Preliminary Report By: Alberto Holland MD Electronically signed By Alberto Holland MD Dictated Date: 08/21/2023 2:06:29 PM Prelim Date: 08/21/2023 2:08:47 PM Sign Date: 08/21/2023 2:08:47 PM Ordering Provider: JACOB Saldana [facility] ([place]) LABORATORYOrdered By: SYSTEM SYSTEM on 08-21-2023 Albumin BCP dye [Mass/Vol] 4.1 G/dL Normal 3.5 - 5.0 G/dL AO ADM SS Albumin/Globulin [Mass ratio] 1.4 {ratio} Normal 1.1 - 2.5 ratio AO ADM SS ALP [Catalytic activity/Vol] 83 U/L Normal 40 - 135 U/L AO ADM SS ALT With P-5'-P [Catalytic activity/Vol] 19 U/L Normal 14 - 59 U/L AO ADM SS AST With P-5'-P [Catalytic activity/Vol] 10 U/L Normal 10 - 40 U/L AO ADM SS Basophil, Absolute 0.0 103/mcL Normal 0.0 - 0.2 10^3/mcL AO Workflow SS Basophils/100 WBC (Bld) 0.3 % Normal 0.0 - 2.5 % AO Workflow SS Bilirubin [Mass/Vol] 0.4 mg/dL Normal 0.2 - 1 .0 mg/dL AO ADM SS Comment on above: Interpretive Data: U se of this assay is not recommended for patients undergoing treatment with eltrombopag due to the potential for falsely elevated results. Calcium [Mass/Vol] 9.2 mg/dL Normal 8.4 - 10. 2 mg/dL AO ADM SS Chloride [Moles/Vol] 106 mmol/L Normal 98 - 10 7 mmol/L AO ADM SS CO2 [Moles/Vol] 28 mmol/L Normal 22 - 29 mmol/L AO ADM SS Creatinine [Mass/Vol] 0.80 mg/dL Normal 0.55 - 1.02 mg/dL AO ADM SS Electrolyte Balance 8.0 mEq/L Normal 4.0 - 15 .0 mEq/L AO ADM SS Eosinophil, Absolute 0.0 103/mcL Normal 0.0 - 0 .4 10^3/mcL AO Workflow SS Eosinophils/100 WBC (Bld) 0.3 % Normal 0.0 - 7.0 % AO Workflow SS Erythrocyte distribution width (RBC) [Ratio] 13.3 % Normal 11.5 - 14.5 % AO Workflow SS GFR/1.73 sq M.predicted among blacks MDRD (S/P/Bld) [Vol rate/Area] 100 ml/min/1.73sqm Invalid Interpretation Code AO Chemistry S Comment on above: Interpretive Data: GFR Population mean for , Non- Americans Ages 20-29 = 116 mL/min/1.73 sq.m. Ages 30-39 = 107 mL/min/1.73 sq.m. Ages 40-49 = 99 mL/min/1.73 sq.m. Ages 50-59 = 93 mL/min/1.73 sq.m. Ages 60-69 = 85 mL/min/1.73 sq.m. Ages 70+ = 75 mL/min/1.73 sq.m. Chronic Kidney Disease: Less than 60 mL/min/1.73 square meters End Stage Renal Disease: Less than 15 mL/min/1.73 square meters GFR/1.73 sq M.predicted among non-blacks MDRD (S/P/Bld) [Vol rate/Area] 83 ml/min/1.73sqm Invalid Interpretation Code AO Chemistry S Comment on above: Interpretive Data: GFR Population mean for , Non- Americans Ages 20-29 = 116 mL/min/1.73 sq.m. Ages 30-39 = 107 mL/min/1.73 sq.m. Ages 40-49 = 99 mL/min/1.73 sq.m. Ages 50-59 = 93 mL/min/1.73 sq.m. Ages 60-69 = 85 mL/min/1.73 sq.m. Ages 70+ = 75 mL/min/1.73 sq.m. Chronic Kidney Disease: Less than 60 mL/min/1.73 square meters End Stage Renal Disease: Less than 15 mL/min/1.73 square meters Globulin 3.0 G/dL Invalid Interpretation Code AO ADM SS Glucose [Mass/Vol] 104 mg/dL Normal 70 - 105 mg/dL AO ADM SS Hematocrit (Bld) [Volume fraction] 40.3 % Normal 37.0 - 47.0 % AO Workflow SS Hemoglobin (Bld) [Mass/Vol] 13.9 G/dL Normal 12.0 - 16.0 G/dL AO Workflow SS Lactate [Moles/Vol] 1.2 mmol/L Normal 0.4 - 2. 0 mmol/L AO ADM SS Lymphocyte, Absolute 1.1 103/mcL Normal 0.8 - 3 .9 10^3/mcL AO Workflow SS Lymphocytes/100 WBC (Bld) 9.3 % Low 10.0 - 50.0 % AO Workflow SS Magnesium [Mass/Vol] 2.1 mg/dL Normal 1.8 - 2 .4 mg/dL AO ADM SS MCH (RBC) [Entitic mass] 32.2 pg High 27.0 - 31.2 pg AO Workflow SS MCHC 34.5 G/dL Normal 33.0 - 37.0 G/dL AO Workflow SS MCV (RBC) [Entitic vol] 93.2 fL Normal 80.0 - 94.0 fL AO Workflow SS Monocyte distribution width Auto (Bld) [Entitic vol] 15.17 1 Normal 0.00 - 20.00 AO Workflow SS Comment on above: Result Comment: For ED adult patients suspected of sepsis, MDW<=20.0 does not rule out sepsis or risk of sepsis Monocyte, Absolute 0.5 103/mcL Normal 0.2 - 1.0 10^3/mcL AO Workflow SS Monocytes/100 WBC (Bld) 4.2 % Normal 1.7 - 13.0 % AO Workflow SS Neutrophil, Absolute 9.8 103/mcL High 2.9 - 6 .2 10^3/mcL AO Workflow SS Neutrophils/100 WBC (Bld) 85.9 % High 37.0 - 80.0 % AO Workflow SS Platelet mean volume (Bld) [Entitic vol] 7.3 fL Low 7.4 - 10.4 fL AO Workflow SS Platelets (Bld) [#/Vol] 275 103/mcL Normal 130 - 400 10^3/mcL AO Workflow SS Potassium [Moles/Vol] 4.4 mmol/L Normal 3.5 - 5.1 mmol/L AO ADM SS Protein [Mass/Vol] 7.1 G/dL Normal 6.4 - 8.2 G/dL AO ADM SS RBC (Bld) [#/Vol] 4.33 106/mcL Normal 4.20 - 5.4 0 10^6/mcL AO Workflow SS Sodium [Moles/Vol] 142 mmol/L Normal 136 - 145 mmol/L AO ADM SS Urea nitrogen [Mass/Vol] 13 mg/dL Normal 7 - 18 mg/dL AO ADM SS Urea nitrogen/Creatinine [Mass ratio] 16 ratio Normal 7 - 27 ratio AO ADM SS WBC (Bld) [#/Vol] 11.4 103/mcL High 4.6 - 10.8 10^3/mcL AO Workflow SS LABORATORYOrdered By: Zahra Yusuf on 08-21-2023 Amphetamines Screen Ql (U) Negative *NA* (08/21/23 1:42 PM) Invalid Interpretation Code Negative AO ADM SS Appearance (U) Clear (08/21/23 1:42 PM) Normal Clear AO Auto Urine SS Bacteria LM.HPF (Urine sed) [#/Area] 2 /[HPF] Invalid Interpretation Code AO Auto Urine SS Barbiturates Screen Ql (U) Negative *NA* (08/21/23 1:42 PM) Invalid Interpretation Code Negative AO ADM SS Benzodiazepines Ql (U) Negative *NA* (08/21/23 1:42 PM) Invalid Interpretation Code Negative AO ADM SS Benzoylecgonine Screen Ql (U) Negative *NA* (08/21/23 1:42 PM) Invalid Interpretation Code Negative AO ADM SS Bilirubin Ql (U) Negative (08/21/23 1:42 PM) Normal Negative AO Auto Urine SS Cannabinoids Screen Ql (U) Positive *ABN* (08/21/23 1:42 PM) Invalid Interpretation Code Negative AO ADM SS Color (U) Yellow 2 (08/21/23 1:42 PM) Normal AO Auto Urine SS Comment on above: Result Comment: Spec imen volumes less than 5 ml may not yield chemical or microscopic results truly reflective of renal function or general metabolic status. Glucose Test strip (U) [Mass/Vol] Negative Normal Negative AO Auto Urine SS HCG ( test) Ql (U) Negative (08/21/23 1:42 PM) Normal AO Rapid Testing SS Hemoglobin Auto test strip (U) [Mass/Vol] Large *ABN* (08/21/23 1:42 PM) Invalid Interpretation Code Negative AO Auto Urine SS Ketones Ql (U) Negative Normal Negative AO Auto Ur ine SS Methadone Screen Ql (U) Negative *NA* (08/21/23 1:42 PM) Invalid Interpretation Code Negative AO ADM SS Opiates Screen Ql (U) Negative *NA* (08/21/23 1:42 PM) Invalid Interpretation Code Negative AO ADM SS Phencyclidine Ql (U) Negative *NA* (08/21/23 1:42 PM) Invalid Interpretation Code Negative AO ADM SS test (s) int Not detected Invalid Interpretation Code AO Rapid Testing SS UA Leuk Est Negative (08/21/23 1:42 PM) Normal Negative AO Auto Urine SS UA Mucous Trace /HPF Normal AO Auto Urine SS UA Nitrite Negative (08/21/23 1:42 PM) Normal Negative AO Auto Urine SS UA pH 7.0 (08/21/23 1:42 PM) Normal 5.0 - 8.0 AO Auto Urine SS UA Protein Trace mg/dL Normal Negative AO Auto Urine SS UA RBC None Seen /HPF Normal None Seen AO Auto Ur ine SS UA Spec Grav 1.025 (08/21/23 1:42 PM) Normal 1.015-1.025 AO Auto Urine SS UA Specimen Type Clean Catch (08/21/23 1:42 PM) Normal AO Auto Urine SS UA Squam Epithelial 5-10 /HPF Invalid Interpretation Code None Seen AO Auto Urine SS UA Urobilinogen 0.2 E.U./dL Normal 0.2-1.0 AO Auto Urine SS Urine Drugs screened: See Below 4 (08/21/23 1:42 PM) Normal AO Chemistry S Comment on above: Interpretive Data: T his drug screen is a presumptive screening only. No confirmation will be performed unless requested. Drugs screened include: Threshold Amphetamines/Methamphetamines 1,000 ng/mL Barbiturates 200 ng/mL Benzodiazepine metabolites 200 ng/mL Cannabinoids (THC metabolites) 50 ng/mL Cocaine 300 ng/mL Opiates 300 ng/mL Methadone 300 ng/mL Phencyclidine (PCP) 25 ng/mL Testing has been performed FOR MEDICAL PURPOSES ONLY. WBC LM.HPF (Urine sed) [#/Area] 0-5 /HPF Invalid Interpretation Code None Seen AO Auto Urine SS LACon 08-21-2023 Lactic Acid Lvl 1.2 mmol/L Normal 0.4-2.0 [facility]) Comment on above: Performed By: #### M DW, CMP, ANEU, LAC, [id number], GFR, PREGS, CBC, MG, ADIFF #### [address] [address] MGon 08-21-2023 Magnesium [Mass/Vol] 2.1 mg/dL Normal 1.8-2.4 Counts include 234 beds at the [facility]) Comment on above: Performed By: #### M DW, CMP, ANEU, LAC, [id number], GFR, PREGS, CBC, MG, ADIFF #### [address] [address] PREGSon 08-21-2023 test (s) Negative Normal [facility] ([place]) Comment on above: Performed By: #### M DW, CMP, ANEU, LAC, [id number], GFR, PREGS, CBC, MG, ADIFF #### [id number] [place], [place] [address] test (s) int Not detected Invalid Interpretation Code [facility]) Comment on above: Performed By: #### M DW, CMP, ANEU, LAC, [id number], GFR, PREGS, CBC, MG, ADIFF #### [address] [place], [place] [address] UAon 08-21-2023 Color (U) Yellow Normal [facility] ([place]) Comment on above: Result Comment: Spec imen volumes less than 5 ml may not yield chemical or microscopic results truly reflective of renal function or general metabolic status. Performed By: #### U AMICAO, UDRUG, UA ####[address] [place], [place] [address] Glucose (U) [Mass/Vol] Negative Normal Negative [facility] ([place]) Comment on above: Performed By: #### U AMICAO, UDRUG, UA ####[address] [place], [place] [address] Ketones Ql (U) Negative Normal Negative [facility] ([place]) Comment on above: Performed By: #### U AMICAO, UDRUG, UA ####[address] [place], [place] [address] UA Appear Clear Normal Clear [facility] ([place]) Comment on above: Performed By: #### U AMICAO, UDRUG, UA ####[address] [place], [place] [address] UA Blood Large Abnormal Negative [facility] ([place]) Comment on above: Performed By: #### U AMICAO, UDRUG, UA ####[address] [place], [place] [address] UA Leuk Est Negative Normal Negative [facility] ([place]) Comment on above: Performed By: #### U AMICAO, UDRUG, UA ####[address] [place], [place] [address] UA Nitrite Negative Normal Negative [facility] ([place]) Comment on above: Performed By: #### U AMICAO, UDRUG, UA ####[address] [place], [place] [address] UA pH 7.0 Normal 5.0 - 8.0 [facility] ([place]) Comment on above: Performed By: #### U AMICAO, UDRUG, UA ####[address] [place], [place] [address] UA Protein Trace Normal Negative [facility] ([place]) Comment on above: Performed By: #### U AMICAO, UDRUG, UA ####[address] [place], [place] [address] UA Spec Grav 1.025 Normal 1.015-1.025 [facility] ([place]) Comment on above: Performed By: #### U AMICAO, UDRUG, UA ####[address] [place], [place] [address] UA Specimen Type Clean Catch Normal [facility] ([place]) Comment on above: Performed By: #### U AMICAO, UDRUG, UA ####[address] [place], [place] [address] UA Urobilinogen 0.2 E.U./dL Normal 0.2-1.0 [facility] ([place]) Comment on above: Performed By: #### U AMICAO, UDRUG, UA ####[address] [place], [place] [address] Urobilinogen (U) [Mass/Vol] Negative Normal Negative [facility] ([place]) Comment on above: Performed By: #### U AMICAO, UDRUG, UA ####[address] [place] [address] UDRUGon 08-21-2023 Amphetamine (u) Negative Normal Negative [facility] ([place]) Comment on above: Performed By: #### U AMICAO, UDRUG, UA ####[address] [place], [place] [address] Barbiturate (u) Negative Normal Negative [facility] ([place]) Comment on above: Performed By: #### U AMICAO, UDRUG, UA ####[address] [place], [place] [address] Benzodiazepine (u) Negative Normal Negative [facility] ([place]) Comment on above: Performed By: #### U AMICAO, UDRUG, UA ####[address] [place], [place] [address] Cannabinoid (u) Positive Abnormal Negative [facility] ([place]) Comment on above: Performed By: #### U AMICAO UDRUG, UA ####[address] [place], [place] [address] Cocaine Ql (U) Negative Normal Negative [facility] ([place]) Comment on above: Performed By: #### U AMICAO UDRUG, UA ####[address] [place], [place] [address] Methadone Ql (U) Negative Normal Negative [facility] ([place]) Comment on above: Performed By: #### U AMIJIMIOHAILEYRUG, UA ####[address] [place], [place] [address] Opiate (u) Negative Normal Negative [facility] ([place]) Comment on above: Performed By: #### U HAILEY ARROYORUG, UA ####[address] [place], [place] [address] PCP (u) Negative Normal Negative [facility] ([place]) Comment on above: Performed By: #### U HAILEY ARROYORUG, UA ####[address] [place], [place] [address] Urine Drugs screened: See Below Normal [facility] ([place]) Comment on above: Result Comment: This drug screen is a presumptive screening only. No confirmation will be performed unless requested. Drugs screened include: Threshold Amphetamines/Methamphetamines 1,000 ng/mL Barbiturates 200 ng/mL Benzodiazepine metabolites 200 ng/mL Cannabinoids (THC metabolites) 50 ng/mL Cocaine 300 ng/mL Opiates 300 ng/mL Methadone 300 ng/mL Phencyclidine (PCP) 25 ng/mL Testing has been performed FOR MEDICAL PURPOSES ONLY. Performed By: #### U HAILEY ARROYORUG, UA ####[address] [place], [place] [address] CNOVon 03-12-2023 CNOV Office Visit (GENSWS ) DELON HAJI Rishabh ([id number]) 1990 F Date Time Provider Department 03/12/23 3:00 PM GINETTE WASSERMAN During your visit today, we recorded the following information about you: Temperature Pulse Blood pressure Weight 98.4 degrees 101/minute 110/62 83.3 kg Height 1.753 m Tequila Barry LPN 03/12/2023 3:06 PM Signed REVIEW OF SYSTEMS: General: The patient denies [...] Mammogram screening? N/A Last Colonoscopy: no prior OSWALDO Pinon Billie, RN 03/12/2023 3:52 PM Signed UNIVERSAL PROTOCOL / SAFETY CHECKLIST Procedure to [...] Plan of Care Visit completed when applicable. OLMAN Cain Billie, RN 03/12/2023 3:50 PM Signed The following instructions are important for you related to your office visit today with the [facility]. Instructions After ABSCESS DRAINAGE Tylenol AND Ibuprofen for pain, take one every 4 [...] bath water and soak for approximately 10 mi (more content not included)... Normal [facility] CNOVon 03-11-2023 CNOV Office Visit (UCWSTR ) ADITHYADELON Rishabh ([id number]) 1990 F Date Time Provider Department 03/11/23 11:45 AM DAVINA THOMAS [facility] During your visit today, we recorded the following information about you: Temperature Pulse Respiration Blood pressure 98.6 degrees 110/minute 18/minute 113/76 Weight 83.7 kg Davina Thomas APRN.CNP 03/11/2023 12:36 PM Signed Subjective HPI HPI Delonkrystian Haji is a 32 year old female [...] daily. (Patient not taking: Reported on 03/03/2019) [id number] tab Take 1 tablet by mouth once [...] MG TABLET - CONSULT TO GENERAL SURGERY Davina Thomas APRN.CNP Allergies As of Date: 03/11/2023 Noted Allergy Reaction TOMATO 04/02/2022 8 - GI Upset Date Reviewed: 03/11/2023 Reviewed by: Davina Thomas APRN.CNP - Fully Assessed Reason for Visit: Derm Problem [33] Cmt: Cyst or abscess L buttocks x1 day Primary Visit Diagnosis:Cutaneous abscess of buttock [L02.31] Order(s):doxycycline monohydrate 100 mg tabletTake 1 tablet by mouth twice daily for 5 days.Disp: 10 tabletRfl: 0 CONSULT TO GENERAL SURGERY [9011] Order #: [id number]: 1 FUTURE Prescriptions as of 03/11/2023 - lamoTRIgine ER (LAMICTAL XR) 300 mg 24 hr tablet Take 600 mg by mouth daily at bedtime. - lamoTRIgine ER (LAMICTAL XR) 100 mg 24 hr tablet Take 1 tablet by mouth at bedtime. (take with 600 mg dose total 700 mg daily) - doxycycline monohydrate 100 mg tablet Take 1 tablet by mouth twice daily for 5 days. - penicillin V potassium (V-CILLIN, VEETIDS) 500 mg tablet Take 1 tablet by mouth four times daily. - sertraline (ZOLOFT) 25 mg tablet Take 1 tablet by mouth once daily. - levETIRAcetam (KEPPRA) 500 mg tablet Take 1 tablet by mouth daily at bedtime. - levETIRAcetam (KEPPRA) 750 mg tablet Take 2 tablets by mo (more content not included)... Normal [facility] Progress Noteon 04-02-2022 Stock Driver Authentication Interface Message Text Maternal Medicine Consult Date of Service: 04/02/2022 Referring Provider: Bebeto West Primary Care Provider: [facility], MD Lora Reason for Consult: Dr. Bebeto West requests that Delon be evaluated due to seizure disorder on Lamictal. HPI: Delon is a 31 y.o. at 28w1d gestation who presents for evaluation of seizure disorder on Lamicatal. Delon denies nausea, vomiting, visual disturbance, headaches, epigastric pain, abdominal pain, cramping, regular contractions, leakage of fluid, and/or vaginal bleeding. OB History Para Term AB Living 5 4 3 1 0 5 SAB IAB Ectopic Multiple Live Births 0 0 0 1 5 # Outcome Date GA Lbr Blaise/2nd Weight Sex Delivery Anes PTL Lv 5 Current 4A 2019 35w0d M Vag-Spont GLENN 4B 2019 35w0d F Vag-Spont GLENN Comments: iol due to iugr 3 Term 2016 37w0d F Vag-Spont GLENN 2 Term 2014 38w0d F Vag-Spont GLENN 1 Term 2008 38w0d M Vag-Spont GLENN Past Medical History: Diagnosis Date Seizures Lamictal No past surgical history on file. 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 Infections Live with someone with or exposed to TB No History of STI's Rash or viral illness since last menstruation No 2nd STI GBS 3rd STI Hx of Chicken Pox Yes Other infections Partner has hx of genital herpes Genetics Age is > than 35y as of estimated date No Thalassemia No Neural Tube Defect No Congenital Heart Defect No Down Syndrome No Pranav-Sachs No Mesha Disease No Sickle Cell Disease or Trait No Hemophilia, Thrombophilia No Muscular Dystrophy No Cystic Fibrosis No Turkey's Chorea No Intellectual Disability/Autism No Metabolic Disorder No Recurrent Loss, or a Stillbirth No Inherited Genetic or Chromosomal Disorder No Illicit; Rec.drugs; Alcohol since last menses No No family history on file. Outpatient Encounter Medications as of 04/02/2022 Medication Sig Dispense Refill folic acid (FOLVITE) 1 MG tablet Take by mouth daily lamoTRIgine (LAMICTAL) 200 MG tablet Take 200 mg by mouth 2 times daily lamoTRIgine (LAMICTAL) 25 MG tablet Take 25 mg by mouth 2 times daily ondansetron (ZOFRAN-ODT) 4 MG disintegrating tablet DISSOLVE ONE TABLET ON THE TONGUE EVERY 6 HOURS NEEDED FOR NAUSEA AND VOMITING FOR 30 DAYS No facility-administered encounter medications on file as of 04/02/2022. Review of Systems Constitutional: Negative. HENT: Negative. Eyes: Negative. Respiratory: Negative. Cardiovascular: Negative. Gastrointestinal: Negative. Genitourinary: Negative. Musculoskeletal: Negative. Skin: Negative. Neurological: Negative. Endo/Heme/Allergies: Negative. Psychiatric/Behavioral : Negative. PHYSICAL EXAM: LMP 09/18/2021 Constitutional: General: She is active. HENT: Head: Atraumatic. Eyes: Extraocular Movements: EOM normal. Conjunctiva/sclera: Conjunctivae normal. Pulmonary: Effort: Pulmonary effort is normal. Abdominal: Comments: gravid uterus Musculoskeletal: Normal range of motion. Neurological: Mental Status: She is alert. X 3. Laboratory Test Results: No visits with results within 1 Year(s) from this visit. Latest known visit with results is: No results found for any previous visit. Ultrasound Results: - Please see Ultrasound test for full details. Assessment/Plan: Delon Haji is a 31 y.o. at 28w1d with: Active Non-Hospital Problems Diagnosis Date Noted Drug exposure, gestational 04/03/2022 Ultrasound report: Detailed anatomy and echocardiogram 1. Single living intrauterine with biometry consistent with clinical dates. 2. Anatomic survey was adequately visualized and appeared normal. 3. Amniotic fluid appeared normal.... 4. Placenta is posterior, grade 2. 5. Echo appears normal. Discussion regarding seizure disorders and : - Morbidity and mortality are increased during among women with seizure disorder across a range of maternal and outcomes including preeclampsia, labor, bleeding, placental abruption, poor growth, prematurity, , and maternal mortality. The magnitude of the increase in risk appears to be relatively small for most complications (ie, between 1 and 1.5 times expected rates), with the exception of maternal mortality, which may be as much as 10-fold higher among women with epilepsy during the delivery hospitalization. - Antiseizure medication monitoring. The patient is on Lamictal. Increased clearance during can lead to seizure deterioration (increased frequency or severity) if target (more content not included)... Normal [facility] LABORATORYOrdered By: Alesha Harrison on 10-21-2021 Appearance (U) Clear (10/21/21 4:36 PM) Invalid Interpretation Code Clear AO Auto Urine SS Bilirubin Ql (U) Negative (10/21/21 4:36 PM) Invalid Interpretation Code Negative AO Auto Urine SS Calcium [Mass/Vol] 9.0 mg/dL Invalid Interpretation Code 8.4 - 10.2 mg/dL AO ADM SS Chloride [Moles/Vol] 103 mmol/L Invalid Interpretation Code 98 - 107 mmol/L AO ADM SS CO2 [Moles/Vol] 26 mmol/L Invalid Interpretation Code 22 - 29 mmol/L AO ADM SS Color (U) Yellow (10/21/21 4:36 PM) Invalid Interpretation Code AO Auto Urine SS Creatinine [Mass/Vol] 0.64 mg/dL Invalid Interpretation Code 0.55 - 1.02 mg/dL AO ADM SS Electrolyte Balance 11.0 mEq/L Invalid Interpretation Code 4.0 - 15.0 mEq/L AO ADM SS Glucose [Mass/Vol] 103 mg/dL Invalid Interpretation Code 70 - 105 mg/dL AO ADM SS Glucose Test strip (U) [Mass/Vol] Negative Invalid Interpretation Code Negativemg/d L AO Auto Urine SS Hemoglobin Auto test strip (U) [Mass/Vol] Negative (10/21/21 4:36 PM) Invalid Interpretation Code Negative AO Auto Urine SS Ketones Ql (U) Negative Invalid Interpretation Code Negativemg/d L AO Auto Urine SS Potassium [Moles/Vol] 3.9 mmol/L Invalid Interpretation Code 3.5 - 5.1 mmol/L AO ADM SS Sodium [Moles/Vol] 140 mmol/L Invalid Interpretation Code 136 - 145 mmol/L AO ADM SS UA Leuk Est Negative (10/21/21 4:36 PM) Invalid Interpretation Code Negative AO Auto Urine SS UA Nitrite Negative (10/21/21 4:36 PM) Invalid Interpretation Code Negative AO Auto Urine SS UA pH 6.5 (10/21/21 4:36 PM) Invalid Interpretation Code 5.0 - 8.0 AO Auto Urine SS UA Protein Negative Invalid Interpretation Code Negativemg/d L AO Auto Urine SS UA Spec Grav >=1.030 *ABN* (10/21/21 4:36 PM) Invalid Interpretation Code 1.015-1.025 AO Auto Urine SS UA Specimen Type Clean Catch (10/21/21 4:36 PM) Invalid Interpretation Code AO Auto Urine SS UA Urobilinogen 0.2 E.U./dL Invalid Interpretation Code 0.2-1.0E.U./ dL AO Auto Urine SS Urea nitrogen [Mass/Vol] 9 mg/dL Invalid Interpretation Code 7 - 18 mg/dL AO ADM SS Urea nitrogen/Creatinine [Mass ratio] 14 ratio Invalid Interpretation Code 7 - 27 ratio AO ADM SS LABORATORYOrdered By: Alesha Owens on 10-21-2021 Basophil, Absolute 0.10 103/mcL Invalid Interpretation Code 0.00 - 0.19 10^3/mcL AO Auto Heme SS Basophils/100 WBC (Bld) 1.1 % Invalid Interpretation Code 0.0 - 2.5 % AO Auto Heme SS Eosinophil, Absolute 0.40 103/mcL Invalid Interpretation Code 0.00 - 0.40 10^3/mcL AO Auto Heme SS Eosinophils/100 WBC (Bld) 4.5 % Invalid Interpretation Code 0.0 - 7.0 % AO Auto Heme SS Erythrocyte distribution width (RBC) [Ratio] 13.2 % Invalid Interpretation Code 11.5 - 14.5 % AO Auto Heme SS Hematocrit (Bld) [Volume fraction] 39.6 % Invalid Interpretation Code 37.0 - 47.0 % AO Auto Heme SS Hemoglobin (Bld) [Mass/Vol] 13.4 G/dL Invalid Interpretation Code 12.0 - 16.0 G/dL AO Auto Heme SS Lymphocyte, Absolute 2.80 103/mcL Invalid Interpretation Code 0.77 - 3.85 10^3/mcL AO Auto Heme SS Lymphocytes/100 WBC (Bld) 33.3 % Invalid Interpretation Code 10.0 - 50.0 % AO Auto Heme SS MCH (RBC) [Entitic mass] 31.7 pg Invalid Interpretation Code 27.0 - 31.2 pg AO Auto Heme SS MCHC (RBC) [Mass/Vol] 33.9 G/dL Invalid Interpretation Code 33.0 - 37.0 G/dL AO Auto Heme SS MCV (RBC) [Entitic vol] 93.5 fL Invalid Interpretation Code 80.0 - 94.0 fL AO Auto Heme SS Monocyte, Absolute 0.70 103/mcL Invalid Interpretation Code 0.15 - 1.00 10^3/mcL AO Auto Heme SS Monocytes/100 WBC (Bld) 8.4 % Invalid Interpretation Code 1.7 - 13.0 % AO Auto Heme SS Neutrophil, Absolute 4.40 103/mcL Invalid Interpretation Code 2.85 - 6.16 10^3/mcL AO Auto Heme SS Neutrophils/100 WBC (Bld) 52.7 % Invalid Interpretation Code 37.0 - 80.0 % AO Auto Heme SS Platelet mean volume (Bld) [Entitic vol] 7.9 fL Invalid Interpretation Code 7.4 - 10.4 fL AO Auto Heme SS Platelets (Bld) [#/Vol] 304 103/mcL Invalid Interpretation Code 130 - 400 10^3/mcL AO Auto Heme SS RBC (Bld) [#/Vol] 4.24 106/mcL Invalid Interpretation Code 4.20 - 5.40 10^6/mcL AO Auto Heme SS WBC (Bld) [#/Vol] 8.30 103/mcL Invalid Interpretation Code 4.60 - 10.80 10^3/mcL AO Auto Heme SS LABORATORYOrdered By: SYSTEM SYSTEM on 10-21-2021 GFR 131 ml/min/1.73sqm Invalid Interpretation Code AO Chemistry S GFR Non- 108 ml/min/1.73sqm Invalid Interpretation Code AO Chemistry S Vital Signs Date Time Vital Sign Value Performing Clinician Facility 10-05-2024 08:07-0400 Body mass index (BMI) [Ratio] 32.99 kg/m2 Alison Kellyu V, DO Work Phone: [facility] 10-05-2024 08:07-0400 Body temperature 97.9 [degF] Alison Kellyu V, DO Work Phone: [facility] 10-05-2024 08:07-0400 Body weight 101.33 kg Alison Nulluru V, DO Work Phone: [facility] 10-05-2024 08:07-0400 Diastolic blood pressure 61 mm[Hg] Alison Nulluru V, DO Work Phone: [facility] 10-05-2024 08:07-0400 Heart rate 81 /min Alison Givens V, DO Work Phone: [facility] 10-05-2024 08:07-0400 Systolic blood pressure 121 mm[Hg] Alison Givens V, DO Work Phone: [facility] 03-18-2024 15:20-0400 Body temperature 98.78 [degF] DR JENA SWANSON MD [facility] 03-18-2024 15:20-0400 Diastolic Blood Pressure Non-Invasive 68 mm[Hg] DR JENA SWANSON MD [facility] 03-18-2024 15:20-0400 Heart rate 100 /min DR JENA SWANSON MD [facility] 03-18-2024 15:20-0400 Respiratory rate 18 /min DR JENA SWANSON MD [facility] 03-18-2024 15:20-0400 Systolic Blood Pressure Non-Invasive 112 mm[Hg] DR JENA SWANSON MD [facility] 02-25-2024 18:03-0400 Body temperature 97.34 [degF] ROQUE MEJÍA DO [facility] 02-25-2024 18:03-0400 Body weight 81 kg ROQUE MEJÍA DO [facility] 02-25-2024 18:03-0400 Diastolic Blood Pressure Non-Invasive 71 mm[Hg] ROQEU MEJÍA DO [facility] 02-25-2024 18:03-0400 Heart rate 105 /min ROQUE MEJÍA DO [facility] 02-25-2024 18:03-0400 Respiratory rate 16 /min ROQUE MEJÍA DO [facility] 02-25-2024 18:03-0400 Systolic Blood Pressure Non-Invasive 122 mm[Hg] ROQUE MEJÍA DO [facility] 11-14-2023 17:40-0400 Blood Pressure Cuff Size NORMA ECKERT DO [facility] 11-14-2023 17:40-0400 Blood Pressure Location NORMA ECKERT DO [facility] 11-14-2023 17:40-0400 Blood Pressure Method NORMA ECKERT D O [facility] 11-14-2023 17:40-0400 Body temperature 97.7 [degF] NORMA ECKERT DO [facility] 11-14-2023 17:40-0400 Diastolic Blood Pressure Non-Invasive 76 mm[Hg] NORMA ECKERT DO [facility] 11-14-2023 17:40-0400 Heart rate 88 /min NORMA ECKERT DO [facility] 11-14-2023 17:40-0400 Respiratory rate 16 /min NORMA ECKERT DO [facility] 11-14-2023 17:40-0400 Systolic Blood Pressure Non-Invasive 125 mm[Hg] NORMA ECKERT DO [facility] 11-12-2023 11:01-0400 Body temperature 98.01 [degF] Krislyn Aberegg PA Work Phone: [facility] 11-12-2023 11:01-0400 Body weight 87.5 kg Krislyn Aberegg PA Work Phone: [facility] 11-12-2023 11:01-0400 Diastolic blood pressure 64 mm[Hg] Krislyn Aberegg PA Work Phone: [facility] 11-12-2023 11:01-0400 Heart rate 69 /min Krislyn Aberegg PA Work Phone: [facility] 11-12-2023 11:01-0400 Respiratory rate 16 /min Krislyn Aberegg PA Work Phone: [facility] 11-12-2023 11:01-0400 SaO2% (BldA) [Mass fraction] 98 % Krislyn Aberegg PA Work Phone: [facility] 11-12-2023 11:01-0400 Systolic blood pressure 128 mm[Hg] Krislyn Aberegg PA Work Phone: [facility] 10-13-2023 08:22-0400 Body height 175.3 cm Tonja Xie BOOK [employer] S[employer] EDITOR[employer]CHITECT Work Phone: [facility] 10-13-2023 08:22-0400 Body mass index (BMI) [Ratio] 27.76 kg/m2 Tonja Xie BOOK [employer] S[employer] EDITOR[employer] ARCHITECT Work Phone: [facility] 10-13-2023 08:22-0400 Body temperature 100 [degF] Tonja Cosbyley BOOK OR SCRIPT EDITOR-[employer] ARCHITECT Work Phone: [facility] 10-13-2023 08:22-0400 Body weight 85.28 kg Tonja Xie BOOK OR SCRIPT EDITOR[employer] ARCHITECT Work Phone: [facility] 10-13-2023 08:22-0400 Diastolic blood pressure 57 mm[Hg] Tonja Cosbyley BOOK OR SCRIPT EDITOR-[employer] ARCHITECT Work Phone: [facility] 10-13-2023 08:22-0400 Heart rate 94 /min Tonja Xie BOOK OR SCRIPT EDITOR[employer] ARCHITECT Work Phone: [facility] 10-13-2023 08:22-0400 Systolic blood pressure 122 mm[Hg] Tonja Xie BOOK OR SCRIPT EDITOR-[employer] ARCHITECT Work Phone: [facility] 09-22-2023 11:09-0500 Body temperature 98.2 [degF] Meg Ortez BOOK OR SCRIPT EDITOR.[employer] ARCHITECT Work Phone: [facility] 09-22-2023 11:09-0500 Body weight 88.45 kg Meg Ortez BOOK OR SCRIPT EDITOR.[employer] ARCHITECT Work Phone: [facility] 09-22-2023 11:09-0500 Diastolic blood pressure 64 mm[Hg] Meg Ortez BOOK OR SCRIPT EDITOR.[employer] ARCHITECT Work Phone: [facility] 09-22-2023 11:09-0500 Heart rate 88 /min Meg Ortez BOOK OR SCRIPT EDITOR.[employer] ARCHITECT Work Phone: [facility] 09-22-2023 11:09-0500 Respiratory rate 16 /min Meg Ortez BOOK [employer] SCRIPT EDITOR.[employer] ARCHITECT Work Phone: [facility] 09-22-2023 11:09-0500 SaO2% (BldA) [Mass fraction] 98 % Meg Ortez BOOK OR SCRIPT EDITOR.[employer] BASIS ARCHITECT Work Phone: [facility] 09-22-2023 11:09-0500 Systolic blood pressure 110 mm[Hg] Meg Ortez BOOK [employer] SCRIPT EDITOR.[employer] ARCHITECT Work Phone: [facility] 08-21-2023 18:33-0500 Heart rate 98 /min NIDAL CHOUJAA DO [facility] 08-21-2023 17:28-0500 Diastolic Blood Pressure Non-Invasive 60 mm[Hg] NIDAL CHOUJAA DO [facility] 08-21-2023 17:28-0500 Heart rate 83 /min NIDAL CHOUJAA DO Access [facility] 08-21-2023 17:28-0500 Mean blood pressure 73 mm[Hg] NIDAL CHOUJAA DO [facility] 08-21-2023 17:28-0500 Reason For Taking VItal Signs NIDAL CHOUJAA DO [facility] 08-21-2023 17:28-0500 Respiratory rate 16 /min NIDAL CHOUJAA DO [facility] 08-21-2023 17:28-0500 Systolic Blood Pressure Non-Invasive 98 mm[Hg] NIDAL CHOUJAA DO [facility] 08-21-2023 16:45-0500 Diastolic Blood Pressure Non-Invasive 57 mm[Hg] NIDAL CHOUJAA DO [facility] 08-21-2023 16:45-0500 Heart rate 85 /min NIDAL CHOUJAA DO [facility] 08-21-2023 16:45-0500 Respiratory rate 16 /min NIDAL CHOUJAA DO [facility] 08-21-2023 16:45-0500 Systolic Blood Pressure Non-Invasive 103 mm[Hg] NIDAL CHOUJAA DO [facility] 08-21-2023 14:50-0500 Diastolic Blood Pressure Non-Invasive 62 mm[Hg] NIDAL CHOUJAA DO [facility] 08-21-2023 14:50-0500 Mean blood pressure 73 mm[Hg] NIDAL CHOUJAA DO [facility] 08-21-2023 14:50-0500 Respiratory rate 16 /min NIDAL CHOUJAA DO [facility] 08-21-2023 14:50-0500 Systolic Blood Pressure Non-Invasive 96 mm[Hg] NIDAL CHOUJAA DO [facility] 08-21-2023 12:54-0500 Blood Pressure Location NIDAL CHOUJAA DO [facility] 08-21-2023 12:54-0500 Body temperature 97.16 [degF] JACOB MARTÍNEZ DO [facility] 03-12-2023 15:02-0400 Body height 175.3 cm Ginette Irwin PA-C Work Phone: [facility] 03-12-2023 15:02-0400 Body temperature 98.4 [degF] Ginette Nuevo PA-C Work Phone: [facility] 03-12-2023 15:02-0400 Body weight 83.28 kg Ginette Irwin PA-C Work Phone: [facility] 03-12-2023 15:02-0400 Diastolic blood pressure 62 mm[Hg] Ginette Nuevo PA-C Work Phone: [facility] 03-12-2023 15:02-0400 Heart rate 101 /min Ginette Irwin PA-C Work Phone: [facility] 03-12-2023 15:02-0400 SaO2% (BldA) [Mass fraction] 98 % Ginette Nuevo PA-C Work Phone: [facility] 03-12-2023 15:02-0400 Systolic blood pressure 110 mm[Hg] Ginette Nuevo PA-C Work Phone: [facility] 03-11-2023 11:48-0400 Body temperature 98.6 [degF] Davina Thomas APRN.SAP BASIS ARCHITECT Work Phone: [facility] 03-11-2023 11:48-0400 Body weight 83.73 kg Davina Thomas BOOK OR SCRIPT EDITOR.SAP BASIS ARCHITECT Work Phone: [facility] 03-11-2023 11:48-0400 Diastolic blood pressure 76 mm[Hg] Davina Thomas BOOK OR SCRIPT EDITOR.SAP BASIS ARCHITECT Work Phone: [facility] 03-11-2023 11:48-0400 Heart rate 110 /min Davina Thomas BOOK OR SCRIPT EDITOR.SAP BASIS ARCHITECT Work Phone: [facility] 03-11-2023 11:48-0400 Respiratory rate 18 /min Davina Thomas BOOK OR SCRIPT EDITOR.SAP BASIS ARCHITECT Work Phone: [facility] 03-11-2023 11:48-0400 SaO2% (BldA) [Mass fraction] 99 % Davina Thomas BOOK OR SCRIPT EDITOR.SAP BASIS ARCHITECT Work Phone: [facility] 03-11-2023 11:48-0400 Systolic blood pressure 113 mm[Hg] Davina King BOOK OR SCRIPT EDITOR.SAP BASIS ARCHITECT Work Phone: [facility] 01-16-2022 07:47-0400 Diastolic blood pressure 64 mm[Hg] Nery Ziegler MBBS Work Phone: [facility] 01-16-2022 07:47-0400 Heart rate 89 /min Nery Ziegler MBBS Work Phone: [facility] 01-16-2022 07:47-0400 Systolic blood pressure 118 mm[Hg] Nery Ziegler MBBS Work Phone: [facility] 01-16-2022 07:36-0400 Body height 172.7 cm Nery Ziegler MBBS Work Phone: [facility] 10-21-2021 16:21-0400 Body temperature 98.42 [degF] NORMA FANGT DO [facility] 10-21-2021 16:21-0400 Diastolic blood pressure 84 mm[Hg] NORMA FROMMELT DO [facility] 10-21-2021 16:21-0400 Heart rate 100 /min NORMA PENDLETONMELT DO [facility] 10-21-2021 16:21-0400 Respiratory rate 18 /min NORMA PENDLETONMELT DO [facility] 10-21-2021 16:21-0400 Systolic blood pressure 126 mm[Hg] NORMA ECKERT DO [facility] Encounters Encounter Date Encounter Type Care Provider Facility Start: 01-02-2025 ambulatory Alison Kellyu Facility: [facility] Start: 01-01-2025 End: 01-01-2025 Emergency department patient visit No Primary Care Physician Facility:[facility] Start: 11-30-2024 End: 11-30-2024 Emergency department patient visit No Primary Care Physician Facility:[facility] Start: 11-10-2024 ambulatory Caro Chavez Facility :[facility] Start: 11-10-2024 End: 11-12-2024 Evaluation and management of inpatient Caro Chavez Facility:[facility] Start: 10-05-2024 End: 10-05-2024 Office outpatient visit 40 minutes Alison Givens DO Work Phone: Neurology [facility] Comment on above: Local-rel symptc epi w cmplx prt seiz,not ntrct,w/o stat epi (Primary Dx) Start: 10-05-2024 ambulatory SELF SELF Facility:[facility] Start: 03-18-2024 End: 03-18-2024 Emergency department patient visit DR JENA SWANSON MD [facility] Start: 02-25-2024 End: 02-25-2024 Emergency department patient visit ROQUEIRVING MEJÍA DO [facility] Start: 02-23-2024 End: 02-23-2024 Emergency department patient visit No Primary Care Physician Facility:[facility] Start: 01-06-2024 End: 01-06-2024 Emergency department patient visit DYLON HOUSTON [facility] Start: 12-08-2023 Orders Only Becky lynne PA-C Work Phone: Orthopaedics Comment on above: Closed fracture of t uft of distal phalanx of finger (Primary Dx) Start: 11-14-2023 End: 11-14-2023 Emergency department patient visit NORMA ECKERT DO [facility] Start: 11-12-2023 End: 11-12-2023 ambulatory GINETTE WASSERMAN [facility] Start: 11-12-2023 End: 11-12-2023 Patient encounter procedure Jaylyn BARNHART Work Phone: [facility] Comment on above: Procedure not jennifer d out (Primary Dx) Start: 10-13-2023 End: 10-13-2023 Office outpatient visit 25 minutes Tonja Xie APRN-MAT Work Phone: [facility]rology [facility] Comment on above: 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, unspecified epilepsy type (Primary Dx) Start: 09-27-2023 End: 09-27-2023 ambulatory MEG ORTEZ [facility] Start: 09-27-2023 End: 09-27-2023 Patient encounter procedure Becky Jules PA-C Work Phone: Orthopaedics Comment on above: Closed fracture of t uft of distal phalanx of finger (Primary Dx); Pain of finger of left hand Start: 09-24-2023 End: 09-24-2023 Patient encounter procedure Viet Esparza DO Work Phone: [facility] Comment on above: Injury of finger of left hand, initial encounter; Closed fracture of tuft of distal phalanx of finger Start: 09-24-2023 ambulatory VIET ESPARZA Facility:[facility] Start: 09-22-2023 End: 09-22-2023 Subsequent hospital visit by physician [facility] Work Phone: Radiology Comment on above: Injury of finger of left hand, initial encounter [S69.92XA] Start: 09-22-2023 End: 09-22-2023 ambulatory [facility] Start: 09-22-2023 End: 09-22-2023 Patient encounter procedure Meg Ortez APRN.SAP BASIS ARCHITECT Work Phone: [facility] Comment on above: Injury of finger of left hand, initial encounter (Primary Dx); Closed fracture of tuft of distal phalanx of finger; Subungual hematoma of finger, initial encounter Start: 08-21-2023 End: 08-21-2023 Emergency department patient visit AJCOB MARTÍNEZ DO [facility] Start: 03-12-2023 End: 03-12-2023 ambulatory GINETTE WASSERMAN [facility] Start: 03-12-2023 End: 03-12-2023 Patient encounter procedure Ginette Wasserman PA-C Work Phone: General Surgery Comment on above: Abscess of left thig h (Primary Dx) Start: 03-11-2023 End: 03-11-2023 ambulatory GINETTE WASSERMAN Facility[facility] Start: 03-11-2023 End: 03-11-2023 Patient encounter procedure Davina Thomas APRN.SAP BASIS ARCHITECT Work Phone: [facility] Comment on above: Cutaneous abscess of buttock (Primary Dx) Start: 05-29-2022 Telephone encounter [facility] Comment on above: Insurance Start: 01-16-2022 End: 01-16-2022 Subsequent hospital visit by physician Nery SALCEDO Work Phone: [facility] Comment on above: Arrived Start: 10-21-2021 End: 10-21-2021 Emergency department patient visit NORMA ECKERT DO [facility] Start: 01-14-2017 End: 05-19-2018 Patient requested procedure Becky Jules PA-C Work Phone: [facility] Procedures Date Procedure Procedure Detail Performing Clinician Start: 09-22-2023 Radex fingr minimum 2 views Meg Ortez BOOK OR SCRIPT EDITOR.SAP BASIS ARCHITECT Work Phone: Plan of Treatment Date Care Activity Detail Author Start: 07-24-2032 Urine microalbumin profile DTaP,Tdap,Td Vaccine (11 - Td or Tdap) [facility] Start: 10-17-2028 Tetanus vaccination TETANUS [facility] Start: 10-17-2028 Urine microalbumin profile DTAP,TDAP,TD (4 - Td or Tdap) [facility] Start: 02-15-2025 End: 02-15-2025 Patient encounter procedure 02/15/2025 8:15 AM EDT Office Visit [facility] [address] [id number] Alison Thakkar DO [address] [place] [address] [facility] Start: 03-26-2024 Covid-19 Vaccine ( season) Covid-19 Vaccine ( season) [facility] Start: 03-26-2024 COVID-19 VACCINE ( season) COVID-19 VACCINE ( season) [facility] Start: 03-26-2024 Influenza vaccination [facility] Start: 12-13-2023 End: 12-13-2023 Patient encounter procedure 12/13/2023 10:30 AM EDT Office Visit Orthopaedics [address] [place] [address] Becky Jules PA-C [address] [place] [address] Injury of finger of left hand, initial encounter [S69.92XA]; Closed fracture of tuft of distal phalanx of finger [S62.639A] follow up per web request Orthopaedics Comment on above: Injury of finger of left hand, initial encounter [S69.92XA]; Closed fracture of tuft of distal phalanx of finger [S62.639A] follow up per web request Start: 07-26-2023 Behavioral Health Screening Behavioral Health Screening [facility] Start: 07-26-2023 Depression Assessment Depression Ass [facility] Start: 05-03-2023 PAP TESTING PAP TESTING [facility] Start: 05-03-2023 Screening for malign ant neoplasm of cervix Pap Testing [facility] Start: 03-26-2023 COVID-19 VACCINE ( season) COVID-19 VACCINE ( season) [facility] Start: 03-26-2023 Influenza vaccination C [facility] Start: 07-26-2022 DEPRESSION ASSESSMENT DEPRESSION ASS [facility] Start: 03-26-2022 Influenza vaccination [facility] Start: 01-20-2022 End: 01-20-2022 Telemedicine consultation with patient 01/20/2022 Telemedicine Neurology Nery Ziegler, MATIAS [address] [place] [address] [facility] Start: 05-03-2021 Screening for malign ant neoplasm of cervix Cervical Cancer Screening [facility] Start: 2020 HPV TESTING HPV TESTING [facility] Start: 2020 Screening for malign ant neoplasm of cervix HPV Testing [facility] Start: 2011 Screening for malign ant neoplasm of cervix CERVICAL CANCER SCREENING DISCUSSION [facility] Start: 2009 Hepatitis B vaccination HEP B VACCINE (1 of 3 - 19+ 3-dose series) [facility] Start: 2009 Hepatitis B Vaccine (1 of 3 - 19+ 3-dose series) Hepatitis B Vaccine (1 of 3 - 19+ 3-dose series) [facility] Start: 2009 PNEUMOCOCCAL VACCINE SERIES (1 of 2 - PCV) PNEUMOCOCCAL VACCINE SERIES (1 of 2 - PCV) [facility] Start: 2009 Third diphtheria, tetanus and acellular pertussis (DTaP) vaccination TDAP (ADULT) [facility] Start: 2008 Anxiety Screening Anxiety Screening [facility] Start: 2008 Depression Screening Depression Scre ening [facility] Start: 2008 Tetanus vaccination TETANUS [facility] Start: 01-20-2008 HPV Vaccine (3 - 3-d ose series) HPV Vaccine (3 - 3-dose series) [facility] Start: 2005 HIV screening HIV SCREENING DISCUSSION [facility] Start: 1996 PNEUMOCOCCAL (1 - PCV) PNEUMOCOCCAL (1 - PCV) [facility] Start: 1996 Pneumococcal vaccination Pneumococcal Vaccine (1 of 2 - PCV) [facility] Start: 1996 PNEUMOCOCCAL VACCINE SERIES (1 - PCV) PNEUMOCOCCAL VACCINE SERIES (1 - PCV) [facility] Start: 1996 PNEUMOCOCCAL VACCINE SERIES (1 of 2 - PCV) PNEUMOCOCCAL VACCINE SERIES (1 of 2 - PCV) [facility] Start: 01-20-1991 COVID-19 VACCINE (#1) COVID-19 VACCI NE (#1) [facility] Start: 1990 HEPATITIS B (1 of 3 - 3-dose series) HEPATITIS B (1 of 3 - 3-dose series) [facility] Start: 1990 Hepatitis B Vaccine (1 of 3 - 3-dose series) Hepatitis B Vaccine (1 of 3 - 3-dose series) [facility] Start: 1990 Hepatitis C antibody , confirmatory test HEPATITIS C VIRUS SCREENING [facility] Start: 1990 Hepatitis C screening HEPATITI S C VIRUS SCREENING [facility] End: 01-16-2022 MR Brain WO contrast [facility] Comment on above: 1 Occurrences starti ng 01/16/2022 until 01/16/2022 End: 01-06-2025 XR Finger - left AP and Lateral and oblique XR DIGIT GENERAL 3V FRONTAL/LAT/OBL LEFT Radiology Routine Closed fracture of tuft of distal phalanx of finger 1 Occurrences starting 12/08/2023 until 01/06/2025 [facility] Work Phone: Comment on above: 1 Occurrences starti ng 12/08/2023 until 01/06/2025 [facility] Immun[facility] Immunization Date Immunization Notes Care Provider Fa lisa 10-17-2018 tetanus toxoid, redu windy diphtheria toxoid, and acellular pertussis vaccine, adsorbed Davina Thomas BOOK OR SCRIPT EDITOR.SAP BASIS ARCHITECT Work Phone: [facility] 05-02-2015 tetanus toxoid, redu windy diphtheria toxoid, and acellular pertussis vaccine, adsorbed Davina Thomas BOOK OR SCRIPT EDITOR.SAP BASIS ARCHITECT Work Phone: [facility] 09-23-2014 tetanus toxoid, redu windy diphtheria toxoid, and acellular pertussis vaccine, adsorbed Davina Thomas BOOK OR SCRIPT EDITOR.SAP BASIS ARCHITECT Work Phone: [facility] 09-10-2014 influenza, injectabl e, quadrivalent, preservative free Davina Thomas BOOK OR SCRIPT EDITOR.SAP BASIS ARCHITECT Work Phone: [facility] 09-10-2014 influenza virus vaccine, unspecified formulation Nery SALCEDO Work Phone: [facility] Payers Date Payer Category Payer Self-pay 2023 Unknown [id number] 2023 Unknown PENDING 2022 Medicaid [facility] MEDIC AID [facility] MEDICAID [id number] 2022-Present [phone] [address] [place] [address] Medicaid [id number] 2022 Medicaid [id number] 2021 Unknown [id number] 1990 Unknown [id number] 1990 Unknown [id number] 1990 Unknown [id number] 1990 Unknown [id number] 1990 Unknown [id number] Unknown [id number] Unknown [id number] Unknown [id number] Unknown [id number] Unknown [id number] Unknown [id number] Unknown [id number] Unknown [id number] Social History Date Type Detail Facility Start: 04-09-2021 End: 03-18-2024 Tobacco smoking status Heavy tobacco smoker (finding) [facility] Sex Assigned At Female [facility] Start: 12-23-2021 End: 10-13-2023 Tobacco smoking status NHIS Smokes tobacco daily [facility] History of tobacco use Cigarette Smoker [facility] Start: 12-23-2021 End: 10-05-2024 Cigarettes smoked current (pack per day) - Reported 0.5 [facility] Start: 12-23-2021 End: 10-13-2023 Tobacco use and exposure Smokeless tobacco non-user [facility] Start: 01-16-2022 End: 02-24-2022 Alcohol intake Current drinker of alcohol (finding) [facility] Start: 12-23-2021 History SDOH Alcohol Comment occaisionaly [facility] Start: 10-02-2021 [facility] Start: 1990 Sex Assigned At Not on file O GARCES [facility] Start: 03-11-2023 End: 09-22-2023 Alcohol intake Current non-drinker of alcohol (finding) [facility] Start: 03-11-2023 End: 10-05-2024 Tobacco use panel [facility] National Score (1-10 0), lower number is lower risk Not on file [facility] Start: 03-11-2023 Tobacco Comment 4-6 cigarettes a day [facility] Start: 10-13-2023 End: 10-05-2024 Alcoholic beverage intake Ex-drinker (finding) [facility] Start: 09-20-2020 Sex Female (finding) [facility] Start: 09-28-2024 Gender identity Identifies as female gender (finding) [facility] Start: 09-28-2024 Sexual orientation Heterosexual (fin juan luis) [facility] Functional Status Date Assessment Result Facility 03-18-2024 Functional Status ID band on, Call device within reach, Bed in low position, Wheels locked, Bedside Cart Locked, Visitor at bedside, Safety level maintained [facility] 02-25-2024 Functional Status Standard Safet y ID band on, Call device within reach, Bed in low position, Wheels locked, Visitor at bedside [facility] 11-14-2023 Functional Status Ambulation in Conrad, Ambulation in Room [facility] 08-21-2023 Functional Status Independent [facility] 08-21-2023 Functional Status Standard Safet y Safety level maintained [facility] 08-21-2023 Functional Status Awake [facility] 10-21-2021 Functional Status [facility] Mental Status Date Assessment Result Facility 03-18-2024 Mental Status Oriented x 4 [facility] 02-25-2024 Mental Status Orientation Oriented x 4 [facility] 11-14-2023 Mental Status Orientation Oriented x 4 [facility] 08-21-2023 Mental Status Orientation Oriented x 4 [facility] 08-21-2023 Mental Status [facility] 10-21-2021 Mental Status [facility] Clinical Notes 09-19-2018 to 10-05-2024 Alison Chon Hernandez DO - 10/05/2024 8:15 AM EDTPatient InstructionsJaylyn Charlton PA - 11/12/2023 11:09 AM EDTCFLORIN Pedroza - 10/13/2023 8:20 AM EDTPatient Instructions Note Date & Type Note Facility 10-05-2024 History of Present illness Narrative [facility] Epilepsy [facility] Reason for Visit: This is a 34 year old female that presents to the Comprehensive Epilepsy Center at [facility] for a follow-up on the care of her epilepsy. The patient is accompanied by her who is supplying parts of the history. HISTORY OF PRESENT ILLNESS: History of Present Illness: As you may know, Mr. Haji started having seizures at the age of 15. The patient has no warning sign prior to her seizures. Per description, the patient will stare off and then have mouth automatisms. This will be followed by a GTC seizure. She has ~4-5 GTC seizures per year. Her seizures last 1-5 minutes. In terms of her risk factors, the patient's mom and great aunt have a diagnosis of epilepsy and from SUDEP. In terms of her work-up, the patient had an EEG in 2021 that was normal. She also had an MRI brain in 2021 that showed nonspecific white matter changes but was otherwise normal. Interval History: In the last year, she has had 5 automotor seizures that progressed to a GTC seizure that lasted 2-3 minutes. Her last seizure was last month. She is currently on Lamictal XR 800 mg daily. She is compliant on this medication and has no side effects. She is not currently wanting to get , is sexually active. Has a Copper IUD. Her daughter Ramona, was born on 06/10/2022. She feels that her mood is overall good. She is currently working at [employer] in [place]. She does have difficulty with her short term memory - specifically recent events. PERTINENT SEIZURE HISTORY: Seizure Treatment History Current ASM's: Lamictal XR 800 mg daily Prior ASM's: Keppra (increased seizure frequency) Depakote (weight gain) Other Prior Treatments: None Seizure Related Complications Cognitive Impairment: Yes Mood disorders: No NDDIE Score: 9 GAD7 Score: 5 Seizure related injuries: None Discussed seizure action plan: Yes Childbearing Age Woman with Epilepsy: Patient on OCP in Conjunction with an Enzyme Inducing Anti-epileptic Drug (ie Phenobarbital, Primidone, Phenytoin, Carbamazepine, Oxcarbazepine): no Patient on OCP in Conjunction with Lamictal: no Patient on OCP in Conjunction with Topamax (of at least 200 mg daily): no Patient taking supplemental Folate: no, copper IUD in place PAST MEDICAL, FAMILY, AND SOCIAL HISTORY, ALLERGIES, AND MEDICATIONS: Past Medical History She has a past medical history of Seizure (February 2005). Past Family History Her family history includes Neurologic Disease in her mother. Past Social History She reports that she has been smoking cigarettes. She has a 16 pack-year smoking history. She has never used smokeless tobacco. She reports that she does not currently use alcohol. She reports that she does not currently use drugs after having used the following drugs: Opiates and Methylphenidate. Past Surgical History She has no past surgical history on file. Allergies She has no known allergies. Medications Outpatient Medications Prior to Visit Medication Sig Dispense Refill LamoTRIgine 200 MG Tab SR 24 HR Take 4 tablets by mouth at bedtime. 360 tablet 1 diazePAM, 20 MG Dose, (Valtoco 20 MG Dose) 2 x 10 MG/0.1ML Liquid Therapy Pack Give 10 mg prn in ONE nostril and 10mg in the opposite nostril (20mg) upon the onset of a seizure cluster or upon onset of a convulsion. MAX 2 DOSES IN 7 DAYS. 4 Each 1 No facility-administered medications prior to visit. PHYSICAL EXAM: Physical Exam BP 121/61 (BP Location: Right arm, BP Position: Sitting) Pulse 81 Temp 97.9 F (36.6 C) (Infrared) Wt 101.3 kg (223 lb 6.4 oz) BMI 32.99 kg/m Smoking Status Every Day Body mass index is 32.99 kg/m . Neurological Exam: Brief Exam: General appearance: well-nourished, well-developed, appears stated age. Patient is alert, oriented to person, place, day, and date. Eye movements are full and conjugate in all directions. No nystagmus. Finger to Nose - normal bilaterally. Rapid alternating movements: normal bilaterally Heel to ordaz - normal bilaterally Abnormal movements: none Normal gait. Moderate difficulty with tandem gait. Skin: no rash identified ASSESSMENT AND PLAN: Assessment: This is a 34 year old female who presents to the epilepsy clinic for the care of her epilepsy. While her neurodiagnostic/neuroimaging work-up has been unrevealing, her semiology suggests a focal onset seizure. We discussed today that she does have a high risk for SUDEP. SUDEP is the sudden, unexpected of someone with epilepsy, who was otherwise healthy. The greatest risk factor for SUDEP is frequent seizures, especially generalized tonic clonic seizures. Other risk factors include not taking medications regularly. Each year, about 1 in 1000 (0.1%) adults with epilepsy from SUDEP. She also has a family history of SUDEP. We also discussed that she intractable epilepsy and she would be a candidate for further intervention including epilepsy surgery, minimally invasive procedures, and neuromodulation. She is not interested in a surgical intervention but would potentially consider neuromodulation. Unfortunately, since the last visit, she lost her Medicaid health insurance. Plan: We will start Onfi and increase this to a goal dose of 20 mg daily over the next 8 weeks. Please the AVS for a specific titration schedule. She will continue with Lamictal XR with no changes. Alternative options include Zonegran and Vimpat (without health insurance). If she does get health insurance in the future, we could consider Xcopri. I have referred her to the epilepsy monitoring unit I have given her information on Neuromodulation devices We discussed general seizure safety. Since she is self pay, she cannot afford the nasal rescue medications at this time. She and her are aware when EMS would need to be called (ie when a seizure lasts 5 minutes or longer, injuries, related anoxia) We talked about getting while on Lamictal and with the diagnosis of epilepsy. Generally speaking, the average population has a risk of about 2% of having a baby with a major congenital malformation. This increases to about 3-4% when on a high dose of this medication. We dont have data of significant numbers on Onfi . The best predictor of seizure freedom during is seizure freedom prior to . Women who are seizure free in the 9 months prior to have an 84-92% chance of remaining seizure free during the on their current regimen. She currently does not wish to get and has an IUD in place. We discussed potentially getting Genetic testing when she did have health insurance again given her strong family history of epilepsy and SUDEP. I have referred her to social work for financial assistance/aid with procedures such as the epilepsy monitoring unit 8. The patient was asked not to drive until seizure free for 6 months. The patient was asked not to work in close proximity of machines with moving parts, not to swim unsupervised, not to take tub baths or shower with water accumulation, and not to work at high places. The patient will follow-up in the Epilepsy clinic in 4 months. In the meantime, the Neurology clinic phone number was provided to the patient in case of questions or concerns. Alison Givens DO [employer] Department of Neurology, Epilepsy Division [facility] I spent approximately 49 minutes reviewing the chart prior to the appointment, in face to face counseling with the patient, and with documentation after the visit. documented in this encounter [facility] 10-05-2024 Instructions Alison Hernandez DO - 10/05/2024 8:15 AM EDT Start Clobazam as follows: Week 1 and 2: Start Clobazam 5 mg (1/2 tablet) once daily Week 3 and 4: Start Clobazam 10 mg (1 tablet) once daily Week 5 and 6: Start Clobazam 15 mg (1.5 tablets) once daily Week 7 and on: Start Clobazam 20 mg (2 tablets) once daily 2. Continue with Lamictal with no changes 3. Information regarding Neuromodulation: Vagus nerve stimulation (VNS) information: https://www.epilepsy.com/treatmen t/devices/gugys-yfnsi-iainigglqmq -therapy Deep brain stimulation (DBS) information: https://www.epilepsy.com/treatmen t/devices/arpn-sepdf-jonnhptrouj 4. Schedule your appointment with the epilepsy monitoring unit 5. Please do not drive until you are seizure free for at least 6 months. Please do not work in close proximity of machines with moving parts, swim unsupervised, or take tub baths or shower with water accumulation. Finally, please avoid working at high places. Please follow-up with me in the clinic in 4 months. If you have any questions or concerns prior to the next visit, you can call the Neurology clinic at [phone]. If you have access through [facility] [employer], you can contact me through that system as well. documented in this encounter [facility] 03-18-2024 Hospital Discharge instructions Patient Education 03/18/2024 16:21:37 Finger Contusion Finger Contusion You have a contusion. This is also called a bruise. There is swelling and some bleeding under the skin, but no broken bones. This injury generally takes a few days to a few weeks to heal. During that time, the bruise will typically change in color from reddish, to purple-blue, to greenish-yellow, then to yellow-brown. A finger contusion may be treated with a splint or meenu tape (taping the injured finger to the one next to it for support). Minor contusions likely will need no other treatment. Home care Elevate the hand to reduce pain and swelling. As much as possible, sit or lie down with the hand raised about the level of your heart. This is especially important during the first 48 hours. Ice the finger to help reduce pain and swelling. Wrap a cold source (ice pack or ice cubes in a plastic bag) in a thin towel. Apply to the bruised finger for 20 minutes every 1 to 2 hours the first day. Continue this 3 to 4 times a day until the pain and swelling goes away. If meenu tape was applied and it becomes wet or dirty, change it. You may replace it with paper, plastic, or cloth tape. Before taping, put a thin strip of cotton or gauze between the fingers to absorb sweat. This will help prevent any breakdown of skin or fungal infections. Unless another medicine was prescribed, you can take acetaminophen, ibuprofen, or naproxen to control pain. (If you have chronic liver or kidney disease or ever had a stomach ulcer or gastrointestinal bleeding, talk with your doctor before using these medicines.) Follow up Follow up with your healthcare provider, or as advised. Call if you are not improving within 1 to 2 weeks. When to seek medical advice Call your healthcare provider right away if you have any of the following: Increased pain or swelling Hand or arm becomes cold, blue, numb or tingly Signs of infection: Warmth, drainage, or increased redness or pain around the bruise Inability to move the injured finger or hand Frequent bruising for unknown reasons Your fingernail becomes raised and it appears that there is blood accumulating under the nail. This may need to be drained. [id number] [employer]. [address] [place] [address]. All rights reserved. This information is not intended as a substitute for professional medical care. Always follow your healthcare professional's instructions. Follow Up Care 03/18/2024 15:19:27 With:LEIGHTON LEIGH Address: [address] [place] [phone] Business (1) When:5-7 days only if needed [facility] 03-18-2024 Note Discharge Instructions Thank you for allowing [facility] to assist you with your healthcare needs. The following is important discharge information regarding your hospital visit. Diagnosis from Today's Visit Thumb contusion What to Do Next Instructions from Your Care Team No qualifying data available. Post Acute Orders No qualifying data available. You Need to Schedule the Following Appointments Follow Up with LEIGHTON LEIGH When:Within 5-7 days, only if needed Where:[address] [place] [phone] Business (1) Allergies NKA Medications Please ask your primary doctor or pharmacist before taking any other medication not listed, including over the counter drugs, herbal medications, vitamins and or supplements as they may interact with your home medications. What How Much When Instructions Last Dose Unchanged lamoTRIgine (lamoTRIgine 200 mg oral tablet, extended release) 4 tab(s) by mouth Daily at bedtime Please take this list to your next doctor s visit. Bring all medications you take, including over the counter medications, herbals and other supplements with you to your doctor s visit. Patients and families are reminded to discard old lists and to update any records with all medication providers or retail pharmacies. Education Materials Finger Contusion You have a contusion. This is also called a bruise. There is swelling and some bleeding under the skin, but no broken bones. This injury generally takes a few days to a few weeks to heal. During that time, the bruise will typically change in color from reddish, to purple-blue, to greenish-yellow, then to yellow-brown. A finger contusion may be treated with a splint or meenu tape (taping the injured finger to the one next to it for support). Minor contusions likely will need no other treatment. Home care Elevate the hand to reduce pain and swelling. As much as possible, sit or lie down with the hand raised about the level of your heart. This is especially important during the first 48 hours. Ice the finger to help reduce pain and swelling. Wrap a cold source (ice pack or ice cubes in a plastic bag) in a thin towel. Apply to the bruised finger for 20 minutes every 1 to 2 hours the first day. Continue this 3 to 4 times a day until the pain and swelling goes away. If meenu tape was applied and it becomes wet or dirty, change it. You may replace it with paper, plastic, or cloth tape. Before taping, put a thin strip of cotton or gauze between the fingers to absorb sweat. This will help prevent any breakdown of skin or fungal infections. Unless another medicine was prescribed, you can take acetaminophen, ibuprofen, or naproxen to control pain. (If you have chronic liver or kidney disease or ever had a stomach ulcer or gastrointestinal bleeding, talk with your doctor before using these medicines.) Follow up Follow up with your healthcare provider, or as advised. Call if you are not improving within 1 to 2 weeks. When to seek medical advice Call your healthcare provider right away if you have any of the following: Increased pain or swelling Hand or arm becomes cold, blue, numb or tingly Signs of infection: Warmth, drainage, or increased redness or pain around the bruise Inability to move the injured finger or hand Frequent bruising for unknown reasons Your fingernail becomes raised and it appears that there is blood accumulating under the nail. This may need to be drained. [phone] [employer]. [address] [place] [address]. All rights reserved. This information is not intended as a substitute for professional medical care. Always follow your healthcare professional's instructions. Additional Information VACCINATE! IT SAVES LIVES! Members of the community who have not yet received the COVID-19 vaccine and would like to receive it can visit one of [facility] vaccine clinics. There are many vaccine clinic locations within the [facility]. For locations and available times, please visit [email or web address] [email or web address] It is important to note that some COVID mobile vaccine clinics are held outdoors and may be canceled in rainy or stormy conditions. To learn more about pediatric vaccinations (ages 5-11), we invite you to visit the [facility] webpage. https://www.[facility].org/pa ges/8195-Etwry-Tejeedqxjfe-Freque wdhr-Sdrfv-Mlztjntez.html To learn more about the COVID-19 vaccine, we invite you to visit the CDC website for a list of frequently asked questions. https://www.cdc.gov/coronavirus/2 019-ncov/vaccines/faq.html [facility] Patient Portal Access Instructions: Stay connected with your healthcare team and access your personal medical information anytime with the [facility] Patient Portal. If you would like a full copy of your medical records please contact the [facility] Medical Records Department Wednesday through Wednesday between 8a.m. and 4:30p.m. Please follow the directions below to access the portal: 1.Access the email account you provided upon registration to the [facility].2.Look for an invitation email from [facility].3.Open the email and access the invitation link: Accept Invitation to [facility]4.Fill in the required noguera to create your account. Sign into [email or web address] with your username and password that you created in the above steps to stay up to date. You can then view a summary of results, a summary of your visits, and the ability to download your summaries to your computer or send the information securely to a physician. Remember that your healthcare information is confidential, so carefully consider who you will allow to register on the [employer] [facility] Patient Portal for access to your information. You can also access the [employer] [facility] Patient Portal on the [employer] william. Simply click on "Health Records" under "Health Data" and then click on the [employer] logo. HOW TO SAFELY DISPOSE OF PRESCRIPTION MEDICATIONS Please use one of the following methods to safely dispose of your unused medications. 1.Use a drug disposal kit: the drug disposal pouch allows you to safely discard your old and unused drugs. Ask your nurse to give you one when you are discharged.2.Visit a local take-back location: Many local pharmacies and police departments have programs that collect old and unwanted prescription drugs. Call your local pharmacy or go to http://[employer].Who-Sells-it.com/5V6Sl4a to find one close to you.3.Make use of household items: Use cat litter or old coffee grounds to dispose medications if other options are not available. Mix your drugs with these household products, seal them in an airtight container and throw it into the garbage. Call [facility]: [phone] to be sure your drugs can be disposed of in this way. Some medicines may require a different approach.4.Never flush your medications down the toilet. IF YOU HAVE BEEN PRESCRIBED AN OPIOIDS FOR PAIN If you have been prescribed an opioid (such as hydrocodone, oxycodone or morphine), it is critical to understand the possible side effects and risks of opioid pain medications. Even when taken as directed, opioids can have several side effects including: Tolerance, meaning you might need to take more of a medication for the same pain relief. Nausea, vomiting and/or constipation. Sleepiness, dizziness, dry mouth, confusion, depression or itching. Physical dependence, meaning you have withdrawal symptoms when a medication is stopped ? this can develop within a few days. KNOW YOUR RESPONSIBILITIES It is important to know exactly how much and how often to take the opioid pain medications you are prescribed. Never take opioids in higher amounts or more often than prescribed. Do not combine opioids with alcohol or other drugs that cause drowsiness, such as benzodiazepines, also known as benzos, including diazepam and alprazolam, muscle relaxants or sleep aids. Never sell or share prescription opioids. This is illegal. Store opioids in a secure place and out of reach of others (including children, family, friends and visitors). The last page(s) of this document has been signed and retained as a CHART COPY Signatures Patient Education Materials Finger Contusion Medication Leaflets My discharge plan and instructions have been reviewed and explained to me and I,DELON HAJI understand my current condition and have read and understand these discharge instructions. I have received a written copy of the plan/instructions. If I have questions, I am aware that I should contact my doctor. Patient/Reproduction Specialist Signature: Date/Time: Relationship to Patient: ____ Witness Name/Signature: Date/Time: [facility] 03-18-2024 Note ORIGINAL EXAMINATION: THREE XRAY VIEWS OF THE LEFT THUMB 03/18/2024 4:01 pm COMPARISON: None. HISTORY: ORDERING SYSTEM PROVIDED HISTORY: Reason for Exam: pain TECHNIQUE: AP, lateral, and oblique views. FINDINGS: There are rings partially obscuring the proximal phalanges of 2nd, 3rd, and 4th digits. There is punctate density projected adjacent the tip of ulnar styloid process possibly calcification or sequela of remote trauma. Joint spaces and articular surfaces are preserved and in gross anatomic alignment. There is no acute cortical discontinuity. IMPRESSION: 1. There is no acute fracture or dislocation. Interpreted by: Sorin Segal Preliminary Report By: Sorin Segal Electronically signed By Sorin Segal Dictated Date: 03/18/2024 4:04:15 PM Prelim Date: 03/18/2024 4:09:39 PM Sign Date: 03/18/2024 4:09:39 PM Ordering Provider: JENA SWANSON [facility] 02-25-2024 Hospital Discharge instructions Patient Education 02/25/2024 18:48:59 Subungual Hematoma Subungual Hematoma You just slammed the car door on your finger. The pain is nearly unbearable, and your nail has turned black and blue. It's likely you have a subungual hematoma. This is a pool of blood that collects under a nail after an injury. Although a nail hematoma is seldom serious, it can be very painful. When to call your healthcare provider Any severe blow to a finger or toe should be checked by your healthcare provider. You may have broken bones (fractures) or damage to other tissues. If you can't see your healthcare provider right away, go to the nearest emergency department. Here's what you can expect when you see a healthcare provider: Your nail will be examined. X-rays may be taken to check for a bone fracture or other injury. A procedure may be done to drain the blood from the hematoma and relieve pain (trephination). The healthcare provider makes a small hole in the nail using a special maurisio or drill. The blood under the nail can drain out through this hole. The nail is then bandaged. If the nail is badly damaged it may need to be removed. Deep cuts beneath the nail can then be repaired with stitches. Follow-up If the damaged nail isn't removed, it will most likely fall off on its own. A fingernail can regrow in a few months. Toenails take longer as long as a year and a half. See your healthcare provider if you have any problems with the nail as it heals and regrows. [phone] [employer]. [address] [place] [address]. All rights reserved. This information is not intended as a substitute for professional medical care. Always follow your healthcare professional's instructions. Follow Up Care 02/25/2024 18:03:16 With:ILSSA XIE DO Address: [address] [place] [phone] When:2-4 days With:Follow up with primary care provider Address:Unknown When:2-4 days [facility] 02-25-2024 Emergency department Discharge summary Discharge Instructions Thank you for allowing [facility] to assist you with your healthcare needs. The following is important discharge information regarding your hospital visit. Diagnosis from Today's Visit Subungual hematoma What to Do Next Instructions from Your Care Team Your examination today showed a collection of blood underneath your nailbed called a subungual hematoma. No fracture seen. This is not dangerous but can take a few weeks to completely resolve. Soak your thumb in warm water 2-3 times daily for the next 7 days. Can take 800 mg of ibuprofen 3 times daily with meals for the next 5 days, then as needed. No qualifying data available. Post Acute Orders No qualifying data available. You Need to Schedule the Following Appointments Follow Up with LISSA XIE DO When:Within 2-4 days Where:[address] [place] [address]- [phone] Follow Up with Follow up with primary care provider When:Within 2-4 days Allergies NKA Medications Please ask your primary doctor or pharmacist before taking any other medication not listed, including over the counter drugs, herbal medications, vitamins and or supplements as they may interact with your home medications. What How Much When Instructions Last Dose Unchanged lamoTRIgine (lamoTRIgine 200 mg oral tablet, extended release) 4 tab(s) by mouth Daily at bedtime Please take this list to your next doctor s visit. Bring all medications you take, including over the counter medications, herbals and other supplements with you to your doctor s visit. Patients and families are reminded to discard old lists and to update any records with all medication providers or retail pharmacies. Education Materials Subungual Hematoma You just slammed the car door on your finger. The pain is nearly unbearable, and your nail has turned black and blue. It's likely you have a subungual hematoma. This is a pool of blood that collects under a nail after an injury. Although a nail hematoma is seldom serious, it can be very painful. When to call your healthcare provider Any severe blow to a finger or toe should be checked by your healthcare provider. You may have broken bones (fractures) or damage to other tissues. If you can't see your healthcare provider right away, go to the nearest emergency department. Here's what you can expect when you see a healthcare provider: Your nail will be examined. X-rays may be taken to check for a bone fracture or other injury. A procedure may be done to drain the blood from the hematoma and relieve pain (trephination). The healthcare provider makes a small hole in the nail using a special maurisio or drill. The blood under the nail can drain out through this hole. The nail is then bandaged. If the nail is badly damaged it may need to be removed. Deep cuts beneath the nail can then be repaired with stitches. Follow-up If the damaged nail isn't removed, it will most likely fall off on its own. A fingernail can regrow in a few months. Toenails take longer as long as a year and a half. See your healthcare provider if you have any problems with the nail as it heals and regrows. [phone] [employer]. [address] [place] [address]. All rights reserved. This information is not intended as a substitute for professional medical care. Always follow your healthcare professional's instructions. Additional Information VACCINATE! IT SAVES LIVES! Members of the community who have not yet received the COVID-19 vaccine and would like to receive it can visit one of [facility] vaccine clinics. There are many vaccine clinic locations within the [facility]. For locations and available times, please visit [email or web address] [email or web address] It is important to note that some COVID mobile vaccine clinics are held outdoors and may be canceled in rainy or stormy conditions. To learn more about pediatric vaccinations (ages 5-11), we invite you to visit the [facility] webpage. https://www.[facility].org/pa ges/0636-Ssitn-Kucunrnimul-Freque ifgj-Lozau-Fkzpxdohv.html To learn more about the COVID-19 vaccine, we invite you to visit the CDC website for a list of frequently asked questions. https://www.cdc.gov/coronavirus/2 019-ncov/vaccines/faq.html [employer] [facility] Patient Portal Access Instructions: Stay connected with your healthcare team and access your personal medical information anytime with the [employer] [facility] Patient Portal. If you would like a full copy of your medical records please contact the [facility] Medical Records Department Wednesday through Wednesday between 8a.m. and 4:30p.m. Please follow the directions below to access the portal: 1.Access the email account you provided upon registration to the hospital.2.Look for an invitation email from [facility].3.Open the email and access the invitation link: Accept Invitation to [facility]4.Fill in the required noguera to create your account. Sign into [email or web address] with your username and password that you created in the above steps to stay up to date. You can then view a summary of results, a summary of your visits, and the ability to download your summaries to your computer or send the information securely to a physician. Remember that your healthcare information is confidential, so carefully consider who you will allow to register on the [facility] Patient Portal for access to your information. You can also access the [facility] Patient Portal on the [employer] william. Simply click on "Health Records" under "Health Data" and then click on the [facility] logo. HOW TO SAFELY DISPOSE OF PRESCRIPTION MEDICATIONS Please use one of the following methods to safely dispose of your unused medications. 1.Use a drug disposal kit: the drug disposal pouch allows you to safely discard your old and unused drugs. Ask your nurse to give you one when you are discharged.2.Visit a local take-back location: Many local pharmacies and police departments have programs that collect old and unwanted prescription drugs. Call your local pharmacy or go to http://[employer].Who-Sells-it.com/1Y4Jt3o to find one close to you.3.Make use of household items: Use cat litter or old coffee grounds to dispose medications if other options are not available. Mix your drugs with these household products, seal them in an airtight container and throw it into the garbage. Call [facility]: [phone] to be sure your drugs can be disposed of in this way. Some medicines may require a different approach.4.Never flush your medications down the toilet. IF YOU HAVE BEEN PRESCRIBED AN OPIOIDS FOR PAIN If you have been prescribed an opioid (such as hydrocodone, oxycodone or morphine), it is critical to understand the possible side effects and risks of opioid pain medications. Even when taken as directed, opioids can have several side effects including: Tolerance, meaning you might need to take more of a medication for the same pain relief. Nausea, vomiting and/or constipation. Sleepiness, dizziness, dry mouth, confusion, depression or itching. Physical dependence, meaning you have withdrawal symptoms when a medication is stopped ? this can develop within a few days. KNOW YOUR RESPONSIBILITIES It is important to know exactly how much and how often to take the opioid pain medications you are prescribed. Never take opioids in higher amounts or more often than prescribed. Do not combine opioids with alcohol or other drugs that cause drowsiness, such as benzodiazepines, also known as benzos, including diazepam and alprazolam, muscle relaxants or sleep aids. Never sell or share prescription opioids. This is illegal. Store opioids in a secure place and out of reach of others (including children, family, friends and visitors). The last page(s) of this document has been signed and retained as a CHART COPY Signatures Patient Education Materials Subungual Hematoma Medication Leaflets My discharge plan and instructions have been reviewed and explained to me and I,DELON HAJI understand my current condition and have read and understand these discharge instructions. I have received a written copy of the plan/instructions. If I have questions, I am aware that I should contact my doctor. Patient/Reproduction Specialist Signature: Date/Time: Relationship to Patient: ____ Witness Name/Signature: Date/Time: [facility] 02-25-2024 Note ORIGINAL EXAMINATION: THREE XRAY VIEWS OF THE LEFT THUMB 02/25/2024 6:39 pm COMPARISON: None. HISTORY: ORDERING SYSTEM PROVIDED HISTORY: Reason for Exam: pain FINDINGS: There is no evidence of acute fracture. There is normal alignment. No acute joint abnormality. No focal osseous lesion. No focal soft tissue abnormality. Tiny hyperdensity in the skin of the thumb at the volar aspect of the interphalangeal joint, probably a foreign body. IMPRESSION: 1. No acute osseous abnormality. 2. Tiny hyperdensity in the skin of the thumb at the volar aspect of the interphalangeal joint, probably a foreign body. Interpreted by: Maurisio Naik Preliminary Report By: Maurisio Naik Electronically signed By Maurisio Naik Dictated Date: 02/25/2024 6:43:47 PM Prelim Date: 02/25/2024 6:46:27 PM Sign Date: 02/25/2024 6:46:27 PM Ordering Provider: CARMEN STEPHANIE [facility] 11-14-2023 Hospital Discharge instructions Patient Education 11/14/2023 17:58:13 Abscess, Incision And Drainage Abscess (Incision & Drainage) An abscess is sometimes called a boil. It happens when bacteria get trapped under the skin and start to grow. Pus forms inside the abscess as the body responds to the bacteria. An abscess can happen with an insect bite, ingrown hair, blocked oil gland, pimple, cyst, or puncture wound. Your healthcare provider has drained the pus from your abscess. If the abscess pocket was large, your healthcare provider may have put in gauze packing. Your provider will need to remove it on your next visit. He or she may also replace it at that time. You may not need antibiotics to treat a simple abscess, unless the infection is spreading into the skin around the wound (cellulitis). The wound will take about 1 to 2 weeks to heal, depending on the size of the abscess. Healthy tissue will grow from the bottom and sides of the opening until it seals over. Home care These tips can help your wound heal: The wound may drain for the first 2 days. Cover the wound with a clean dry dressing. Change the dressing if it becomes soaked with blood or pus. If a gauze packing was placed inside the abscess pocket, you may be told to remove it yourself. You may do this in the shower. Once the packing is removed, you should wash the area in the shower, or clean the area as directed by your provider. Continue to do this until the skin opening has closed. Make sure you wash your hands after changing the packing or cleaning the wound. If you were prescribed antibiotics, take them as directed until they are all gone. You may use acetaminophen or ibuprofen to control pain, unless another pain medicine was prescribed. If you have liver disease or ever had a stomach ulcer, talk with your doctor before using these medicines. Follow-up care Follow up with your healthcare provider, or as advised. If a gauze packing was put in your wound, it should be removed in 1 to 2 days. Check your wound every day for any signs that the infection is getting worse. The signs are listed below. When to seek medical advice Call your healthcare provider right away if any of these occur: Increasing redness or swelling Red streaks in the skin leading away from the wound Increasing local pain or swelling Continued pus draining from the wound 2 days after treatment Fever of 100.4 F (38 C) or higher, or as directed by your healthcare provider Boil returns when you are at home [id number] [employer]. [address] [place] [address]. All rights reserved. This information is not intended as a substitute for professional medical care. Always follow your healthcare professional's instructions. Follow Up Care 11/14/2023 17:11:01 With:Call Physician Referral Address:Unknown When:2-4 days [facility] 11-14-2023 Note Discharge Instructions Thank you for allowing [facility] to assist you with your healthcare needs. The following is important discharge information regarding your hospital visit. Diagnosis from Today's Visit Abscess Finger pain-swelling What to Do Next Instructions from Your Care Team No qualifying data available. Post Acute Orders No qualifying data available. You Need to Schedule the Following Appointments Follow Up with Call Physician Referral When Within 2-4 days Allergies NKA Medications Please ask your primary doctor or pharmacist before taking any other medication not listed, including over the counter drugs, herbal medications, vitamins and or supplements as they may interact with your home medications. What How Much When Why Instructions Last Dose New acetaminophen-hydrocodone ([place] 325- 5 mg oral tablet) 1 tab(s) by mouth Every 6 hours as needed for as needed for pain Abscess Duration: 3 Days Printed Prescription New sulfamethoxazole-trimethoprim (Bactrim DS 800 mg-160 mg oral tablet) 1 tab(s) by mouth Two (2) times a day Duration: 10 Days Printed Prescription Please take this list to your next doctor s visit. Bring all medications you take, including over the counter medications, herbals and other supplements with you to your doctor s visit. Patients and families are reminded to discard old lists and to update any records with all medication providers or retail pharmacies. Education Materials Abscess (Incision & Drainage) An abscess is sometimes called a boil. It happens when bacteria get trapped under the skin and start to grow. Pus forms inside the abscess as the body responds to the bacteria. An abscess can happen with an insect bite, ingrown hair, blocked oil gland, pimple, cyst, or puncture wound. Your healthcare provider has drained the pus from your abscess. If the abscess pocket was large, your healthcare provider may have put in gauze packing. Your provider will need to remove it on your next visit. He or she may also replace it at that time. You may not need antibiotics to treat a simple abscess, unless the infection is spreading into the skin around the wound (cellulitis). The wound will take about 1 to 2 weeks to heal, depending on the size of the abscess. Healthy tissue will grow from the bottom and sides of the opening until it seals over. Home care These tips can help your wound heal: The wound may drain for the first 2 days. Cover the wound with a clean dry dressing. Change the dressing if it becomes soaked with blood or pus. If a gauze packing was placed inside the abscess pocket, you may be told to remove it yourself. You may do this in the shower. Once the packing is removed, you should wash the area in the shower, or clean the area as directed by your provider. Continue to do this until the skin opening has closed. Make sure you wash your hands after changing the packing or cleaning the wound. If you were prescribed antibiotics, take them as directed until they are all gone. You may use acetaminophen or ibuprofen to control pain, unless another pain medicine was prescribed. If you have liver disease or ever had a stomach ulcer, talk with your doctor before using these medicines. Follow-up care Follow up with your healthcare provider, or as advised. If a gauze packing was put in your wound, it should be removed in 1 to 2 days. Check your wound every day for any signs that the infection is getting worse. The signs are listed below. When to seek medical advice Call your healthcare provider right away if any of these occur: Increasing redness or swelling Red streaks in the skin leading away from the wound Increasing local pain or swelling Continued pus draining from the wound 2 days after treatment Fever of 100.4 F (38 C) or higher, or as directed by your healthcare provider Boil returns when you are at home [id number] [employer]. [address] [place] [address]. All rights reserved. This information is not intended as a substitute for professional medical care. Always follow your healthcare professional's instructions. Additional Information VACCINATE! IT SAVES LIVES! Members of the community who have not yet received the COVID-19 vaccine and would like to receive it can visit one of [facility] vaccine clinics. There are many vaccine clinic locations within the [facility]. For locations and available times, please visit [email or web address] It is important to note that some COVID mobile vaccine clinics are held outdoors and may be canceled in rainy or stormy conditions. To learn more about pediatric vaccinations (ages 5-11), we invite you to visit the [facility] webpage. [email or web address] To learn more about the COVID-19 vaccine, we invite you to visit the CDC website for a list of frequently asked questions. https://www.cdc.gov/coronavirus/2 019-ncov/vaccines/faq.html [employer] Patient Portal Access Instructions: Stay connected with your healthcare team and access your personal medical information anytime with the [employer] Patient Portal. If you would like a full copy of your medical records please contact the [facility] Medical Records Department Wednesday through Wednesday between 8a.m. and 4:30p.m. Please follow the directions below to access the portal: 1.Access the email account you provided upon registration to the [facility].2.Look for an invitation email from [facility].3.Open the email and access the invitation link: Accept Invitation to [employer]4.Fill in the required noguera to create your account. Sign into www.[employer] with your username and password that you created in the above steps to stay up to date. You can then view a summary of results, a summary of your visits, and the ability to download your summaries to your computer or send the information securely to a physician. Remember that your healthcare information is confidential, so carefully consider who you will allow to register on the [employer] Patient Portal for access to your information. You can also access the [employer] Patient Portal on the [employer] william. Simply click on "Health Records" under "Health Data" and then click on the [employer] logo. HOW TO SAFELY DISPOSE OF PRESCRIPTION MEDICATIONS Please use one of the following methods to safely dispose of your unused medications. 1.Use a drug disposal kit: the drug disposal pouch allows you to safely discard your old and unused drugs. Ask your nurse to give you one when you are discharged.2.Visit a local take-back location: Many local pharmacies and police departments have programs that collect old and unwanted prescription drugs. Call your local pharmacy or go to http://[employer].Who-Sells-it.com/5O3To7z to find one close to you.3.Make use of household items: Use cat litter or old coffee grounds to dispose medications if other options are not available. Mix your drugs with these household products, seal them in an airtight container and throw it into the garbage. Call [facility]: [phone] to be sure your drugs can be disposed of in this way. Some medicines may require a different approach.4.Never flush your medications down the toilet. IF YOU HAVE BEEN PRESCRIBED AN OPIOIDS FOR PAIN If you have been prescribed an opioid (such as hydrocodone, oxycodone or morphine), it is critical to understand the possible side effects and risks of opioid pain medications. Even when taken as directed, opioids can have several side effects including: Tolerance, meaning you might need to take more of a medication for the same pain relief. Nausea, vomiting and/or constipation. Sleepiness, dizziness, dry mouth, confusion, depression or itching. Physical dependence, meaning you have withdrawal symptoms when a medication is stopped ? this can develop within a few days. KNOW YOUR RESPONSIBILITIES It is important to know exactly how much and how often to take the opioid pain medications you are prescribed. Never take opioids in higher amounts or more often than prescribed. Do not combine opioids with alcohol or other drugs that cause drowsiness, such as benzodiazepines, also known as benzos, including diazepam and alprazolam, muscle relaxants or sleep aids. Never sell or share prescription opioids. This is illegal. Store opioids in a secure place and out of reach of others (including children, family, friends and visitors). The last page(s) of this document has been signed and retained as a CHART COPY Signatures Patient Education Materials Abscess, Incision And Drainage Medication Leaflets My discharge plan and instructions have been reviewed and explained to me and I,DELON HAJI understand my current condition and have read and understand these discharge instructions. I have received a written copy of the plan/instructions. If I have questions, I am aware that I should contact my doctor. Patient/Reproduction Specialist Signature: Date/Time: Relationship to Patient: ____ Witness Name/Signature: Date/Time: [facility] 11-12-2023 Note HNO ID: [id number] Author: JAYLYN CHARLTON PA Service: ? Author Type: Physician Psychologist Educational Type: Progress Notes Filed: 11/12/2023 11:14 Note Text: 33-year-old female presents for right thumb injury. Patient states that she had a blister/abscess on her right thumb and punctured it with a needle to pop it a few days ago. She now has redness, swelling and significant pain in the thumb. She states today she is unable to move it due to pain. She states pain is 10/10. On exam, patient has swelling, redness, warmth, fluctuance and significant tenderness of the pulp of the distal right thumb. Concern for possible felon. Patient will be sent to the emergency room for further evaluation. Patient agreeable to this plan. She will go to [facility] 11-12-2023 History of Present illness Narrative 33-year-old female presents for right thumb injury. Patient states that she had a blister/abscess on her right thumb and punctured it with a needle to pop it a few days ago. She now has redness, swelling and significant pain in the thumb. She states today she is unable to move it due to pain. She states pain is 10/10. On exam, patient has swelling, redness, warmth, fluctuance and significant tenderness of the pulp of the distal right thumb. Concern for possible felon. Patient will be sent to the emergency room for further evaluation. Patient agreeable to this plan. She will go to [facility]. documented in this encounter [facility] 10-13-2023 History of Present illness Narrative Images from the original note were not included. Delon Haji was seen in the [facility] on 10/13/2023. She is here today for a follow-up accompanied by her spouse. She was last seen on 11/26/2021 with MATIAS Giraldo and with me in clinic on 11/18/2022. History of Present Illness INTERVAL HISTORY: Delon is a 33 y.o. right handed female who has a past medical history of Seizure (February 2005). She has experienced breakthrough seizures since the last visit. The most recent seizure occurred in 2023, she was outside smoking when she stared off with mouth movements and generalized convulsing. She does not have an aura/warning. She also had another convulsive seizure that night at home. Her significant other reports "loud snoring" after and will sleep for at least a half hour. She does not typically get up and move around after a seizure. Had episode late last year where she experienced dizziness, nausea, blurry vision and heart palpitations. She described her speech as slurred and felt generalized weakness. She is not currently wanting to get , is sexually active. Has a Copper IUD. Her daughter Ramona, was born on 06/10/2022. Uncomplicated delivery. Both her mom and great aunt had epilepsy and from SUDEP. Pertinent Seizure History Per Dr Ziegler 12/23/2021: "Chief Complaint: This is a 31 y.o. year old female with a history of seizures. The patient is accompanied by her to the clinic today. Referring Provider: Stan Andrade MD HPI: Her first seizure were staring spells that occurred when she was a chid. This was described as lasting for a couple of minutes without any aura and some confusion. These were seen by her teacher in school and her mother was told about this. She saw a neurologist who started her on Keppra. She had her first GTC when she was 16 or 17 years old. No history of myoclonic jerks. Keppra was titrated up but with no effect. She was also started on Depakote but had a weight gain and then more recently was transitioned to Lamictal. She continues to have GTC's about 4-5 times a year. She has dislocated her shoulder due to this. She currently only takes Lamictal twice a day for about 5 days of the week since it helps her with anxiety but does it once a day on the remaining 2-3 days. Of note, the the patient is currently at 14 weeks and is not on folic acid. She follows with an OBGYN. Seizure History Seizure Onset: 15 years old Semiology/Frequency: Staring spells - stopped after she turned 16, GTC's - 4/year Secondary Generalization: N/A Triggers: Stress, Depression Longest duration of seizure freedom: 4 years History of Seizure Clusters or Status Epilepticus: None Epilepsy Risk Factors: Family history of seizures (mother, maternal great aunt) Seizure Treatment History Current ASD's: Lamictal 200 mg twice daily Rescue Medication: None Prior ASD's: Keppra (caused more seizures), Depakote (weight gain) ASD Levels: None Other Prior Treatments: None Seizure Related Complications Cognitive Impairment: None Mood disorders: Depression NDDIE Score: 9 JUNAID-7: 3 Seizure related injuries: Tongue bite, torn ligament, left arm dislocation Women of Childbearing Age with Epilepsy: Patient on OCP in Conjunction with an Enzyme Inducing Anti-epileptic Drug (ie Phenobarbital, Primidone, Phenytoin, Carbamazepine, Oxcarbazepine): None Patient on OCP in Conjunction with Lamictal: None Patient on OCP in Conjunction with Topamax (of at least 200 mg daily): None Patient taking supplemental Folate: None Contraception: no method Catamenial Pattern: No Investigations MRI & EEG but doesn't remember details PMHx: Seizures, Depression/Anxiety FHx: Seizures (mother) SHx: Marital/Children: , expecting 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 Past Family History family history includes Neurologic Disease in her mother. Past Social History She reports that she has been smoking cigarettes. She has a 16 pack-year smoking history. She has never used smokeless tobacco. She reports that she does not currently use alcohol. She reports that she does not currently use drugs after having used the following drugs: Opiates and Methylphenidate. Past Surgical History has no past surgical history on file. Allergies She has No Known Allergies. Medications Outpatient Medications Prior to Visit Medication Sig Dispense Refill LamoTRIgine 200 MG Tab SR 24 HR Take 4 tablets by mouth at bedtime. 120 tablet 0 LamoTRIgine 100 MG Tab SR 24 HR Take 1 tablet by mouth at bedtime. (take with 600 mg dose total 700 mg daily) 90 tablet 1 LamoTRIgine 300 MG Tab SR 24 HR Take 2 tablets by mouth at bedtime. 180 tablet 1 Midazolam (Nayzilam) 5 MG/0.1ML Solution Give 5 mg in one nostril for convulsive seizure. Can repeat in opposite nostril if seizure lasts longer than 5 minutes. 10 mg/24 hr MAX. 2 Each 0 No facility-administered medications prior to visit. REVIEW OF SYSTEMS Double Vision - Dizziness - Sleepiness - Blurred Vision - Unsteadiness - Shaky hands - Upset Stomach + Weight Gain - Headaches - Nervousness - Depression + Memory problems - Disturbed Sleep - Difficulty Concentrating - Rashes - Hair loss + Tiredness - Constipation - Are you interested in learning about clinical trials for treatment of your epilepsy that we offer at the [facility]? Yes If you have tried 2 or 3 anti-seizure medications and your seizures are still not controlled, are you interested in learning about surgical options for your epilepsy that we can offer at the [facility]? No PHQ9 Depression Screening: No data to display GAD7 Anxiety Screen 11/18/2022 8:00 AM JUNAID 7 Anxiety Screen Feeling nervous, anxious or on edge More than half the days Not being able to stop or control worrying Several days Worrying too much about different things More than half the days Trouble relaxing Several days Being so restless that it is hard to sit still Several days Becoming easily annoyed or irritable More than half the days Feeling afraid as if something awful might happen Not at all JUNAID-7 Total Score 9 No data to display PHYSICAL EXAM Vitals: 10/13/23 0822 BP: 122/57 Pulse: 94 Temp: 100 degrees F (37.8 degrees C) TempSrc: Infrared Weight: 85.3 kg (188 lb) Height: 1.753 m (5' 9") Body mass index is 27.76 kg/m . General: alert, cooperative, no distress, well-developed, appears stated age Mental status: alert; oriented; good attention Speech/language: fluent; comprehension intact CRANIAL NERVES CN II-XII: grossly intact Motor: Normal bulk and tone. No pronator drift. Strength 5/5 Resting tremor: none noted Reflexes: not tested Coordination: Bvrpaj-pv-myxv intact bilaterally. Sensation: not tested Gait: Normal stride length, arm swing, and base width. PERTINENT LABS, NEURODIAGNOSTIC STUDIES, NEUROIMAGING, AND NEUROPSYCHOLOGY TESTING LABS: Lab Results Component Value Date LAMOTRIGINE 10.7 11/18/2022 Lab Results Component Value Date WBC 6.80 11/18/2022 HGB 12.9 11/18/2022 HCT 38.9 11/18/2022 MCV 89.8 11/18/2022 RBCDISTRIBU 14.3 11/18/2022 MPV 10.0 11/18/2022 PLATELET 278 11/18/2022 Lab Results Component Value Date SODIUM 142 11/18/2022 POTASSIUM 3.9 11/18/2022 CHLORIDE 107 11/18/2022 CO2 26 11/18/2022 BUN 10 11/18/2022 CREATSERUM 0.79 11/18/2022 GLUCOSE 79 12/23/2021 CALCIUM 9.5 11/18/2022 TP 7.3 11/18/2022 ALBUMIN 4.6 11/18/2022 BILITOTAL 0.3 11/18/2022 ALKPHOS 68 11/18/2022 ALT 6 (L) 11/18/2022 AST 10 11/18/2022 No results found for: "TSH", "VITB6", "THIAMNRBC", "B12" Neurodiagnostics: ROUTINE EEG IMPRESSION: This is a normal rEEG in the awake and drowsy states. No seizures orepileptiform discharges were seen. To be discussed with Dr. Ziegler. Carmen Chu MD Neurology, PGY-2 Pager #[phone] Attending Physician Note - Procedure I discussed the indications for this procedure with the resident. I have reviewed and confirm the procedure report as documented in the resident note. [facility], Epilepsy Division [facility] Neuroimaging: BRAIN MRI WITHOUT CONTRAST 01/16/2022: 1. Mild nonspecific cerebral white matter signal changes, as described above. 2. No classic epileptogenic lesion identified. Neuropsychology Testing: Assessment and Plan Assessment: Delon is a pleasant 33 y.o. 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 who has experienced breakthrough unprovoked seizures since her last office visit despite adequate therapy with lamotrigine. She is apprehensive to start a 2nd ASM, has failed Keppra and Depakote in the past and has a significant maternal history of epilepsy with increased risk of SUDEP thus I have recommended the following: Plan: 1. 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 I anticipate starting Vimpat or Xcopri in the near future. - diazePAM, 20 MG Dose, (Valtoco 20 MG Dose) 2 x 10 MG/0.1ML Liquid Therapy Pack; Give 10 mg prn in ONE nostril and 10mg in the opposite nostril (20mg) upon the onset of a seizure cluster or upon onset of a convulsion. MAX 2 DOSES IN 7 DAYS. Dispense: 4 Each; Refill: 1 - discussed "sick day" strategies - if vomiting, unable to keep meds down may need to go to ED - seizure action plan created: Valtoco for convulsive seizures, discussed in detail how and when to use with her significant other - We discussed factors that lower seizure threshold including non-adherence, extreme temperature changes, sleep deprivation, acute illness, decongestants, stress, fatigue and others. Missing doses of your seizure meds can cause breakthrough seizures. - Pursuant to the 2017 guidelines of the AAN regarding sudden unexpected in epilepsy (SUDEP), she was warned of his 1:1000 risk of mortality associated with her generalized tonic-clonic seizures (GTCS), and the need to lower this risk with compliance to an effective antiepileptic drug (AED) regimen. She understood, and endeavors to work closely with our clinic toward this important goal. - We discussed driving restrictions and she is restricted. She is aware of the need to be seizure free for six months prior to driving if she experiences a breakthrough seizure with loss of consciousness or impaired awareness. She was informed of the risk of injury and associated with driving with uncontrolled seizures. She verbalized an understanding. - We reviewed the following safety issues: occupation/work related injuries including not to work in close proximity of machines with moving parts, not to work in high places, bathing/swimming, falls/injury prevention, and risk for skin velazquez. We reviewed seizure first aid, seizure rescue medications and when to call 03-26-1. We discussed seizure first aid: Generally speaking, emergency staff should be notified for seizure activity lasting longer than 5 minutes. - Pursuant to the 2017 guidelines of the AAN regarding sudden unexpected in epilepsy (SUDEP), she was warned of his 1:1000 risk of mortality associated with her generalized tonic-clonic seizures (GTCS), and the need to lower this risk with compliance to an effective antiepileptic drug (AED) regimen. She understood, and endeavors to work closely with our clinic toward this important goal. - we discussed seizure classification though I am highly suspicious of generalized idiopathic epilepsy given description and age of onset. We specifically discussed utilizing EMU or ambulatory EEG though I am hesitant of aEEG given her convulsive seizures, however, even review of IEDs would be beneficial for confirmatory purposes. - we also discussed epilepsy, ADA work accommodations. She would also qualify for FML when she approaches her 1 year with her employer. Encouraged use of [employer] to send messages to provider as needed for questions and concerns or can call our clinic @ [phone]. She will return in 3-6 months with epilepsy attending (Dr Givens or Dr Durand) or sooner if clinically indicated. Signed, Tonja Xie MSN, BOOK OR SCRIPT EDITOR-SAP BASIS ARCHITECT [facility] Department of Neurology - Epilepsy Division [address] [place] [address] - 7th floor [place] [address] Pager: [phone] Time to complete visit: I spent approximately 38 minutes reviewing the chart prior to the appointment, in face to face counseling with the patient, and with documentation after the visit. Note to patient: The Century Cures Act makes medical notes like these available to patients in the interest of transparency. However, be advised this is a medical document. It is intended as ysla-gg-awnx communication. It is written in medical language and may contain abbreviations or verbiage that are unfamiliar. It may appear blunt or direct. Medical documents are intended to carry relevant information, facts as evident, and the clinical opinion of the practitioner. documented in this encounter [facility] 10-13-2023 Instructions FLORIN Cottrell - 10/13/2023 8:20 AM EDT Images from the original note were not included. [employer] CBD Oil, CBD Gummies and Cream Official Site ([email or web address]) [email or web address] We discussed Vimpat as a second medication to take with your Lamictal due to the breakthrough seizures. We also discussed an ambulatory EEG that you would wear at home OR an evaluation in the Epilepsy Monitoring Unit. Would ideally prefer the Epilepsy Monitoring Unit as we can adjust your medications and provide seizure care if you experience a seizure. We also discussed that when you reach 1 year of employment you may qualify for FML. FML helps to protect your job while you need to take time off for medical/health reasons. 1. Please Continue your current anti seizure medication regimen with lamotrigine (Lamictal) for now 2. Please do not drive until you are seizure free for at least 6 months due to the potential risk of injury and associated with driving with uncontrolled seizures. Please do not work in close proximity of heavy machinery with moving parts, work in high places such as scaffoldings, ladders, and roofs, and use of heavy duty power tools. Please take caution and do not swim or take baths unsupervised, or shower with water accumulation. Finally, please avoid open flames or gas stove tops unsupervised. 3. You have 24 hours to make up a missed dose. Please make up the dose within a day to help prevent breakthrough seizures. With any anti-seizure medication, you may initially notice side effects of fatigue, drowsiness, unsteadiness, dizziness. Other possible side effects include nausea, abdominal pain, headache, blurry or double vision, slurred speech, and mood changes. Should side effects persist or become intolerable, please call the [facility] Neu[facility] at [phone]. If you develop a rash while taking your anti-seizure medication, please contact our clinic immediately or notify another healthcare professional as this may be potentially life-threatening. If you are unable to reach a healthcare professional, go to the emergency room or call for further evaluation. Taking anti-seizure medications may result in an increased risk of congenital abnormalities in the offspring of women with epilepsy. If you are a female of child-bearing potential, it is recommended that you take supplementary folic acid, as this medication may decrease this risk. You should take folic acid daily (at least 400 mcg daily). Should you find out you are , please contact us immediately. On weekends or after regular office hours, a neurologist is cone machine feeder for urgent issues. Call the neurology office number ([phone]) to reach the neurologist cone machine feeder if you are continuing to experience many more seizures than usual despite use of your rescue medications. Please try to remember that the neurologist cone machine feeder may not have access to your complete medical record and may not be as familiar with your history. If you have access through [employer], you can contact us through that system as well. If you have documents that need completed or sent to our clinic, please have them faxed to [phone]. It is always best to call during regular office hours when a nurse can talk with you, review your medical record, and talk to your managing neurologist or nurse practitioner. Also, please remember that routine refills are not urgent, and if needed, please try to call during working hours and allow 2-3 working days to process the refill. Please contact your pharmacy to see if the refill is ready for you to pick up man. Seizure First Aid Training Can Be Found Here (it's free!): [email or web address] documented in this encounter [facility] 09-27-2023 Note HNO ID: [id number] Author: BECKY JULES PA-C Service: ? Author Type: Physician Psychologist Educational Type: Progress Notes Filed: 10/05/2023 09:08 Note Text: Becky Jules PA-C Department of Orthopaedics Orthopaedics [address] [facility] [address] Dept: [phone] Dept September 27, 2023 CHIEF COMPLAINT: New and Fracture of the Left Hand (Middle finger) Ms. Delno Haji is a 33 year old female who presents with an injury to her left middle finger which occurred at work on September 21. Patient states she was helping a coworker with the machine that was jammed, and an additional part came down and struck the top of her finger. She was seen in the emergency room and placed in a finger splint and given an oral antibiotic, she discontinued the antibiotic as it caused GI upset. Pain today is a 7 out of 10 continuous aching. She is right-hand dominant. Denies any previous left hand injuries. She is a young daughter, diaper changes are the most painful for her. This is [facility]. ASSESSMENT: S62.570Q Closed fracture of tuft of distal phalanx of finger (primary encounter diagnosis) M79.645 Pain of finger of left hand PLAN: She has a tuft fracture of the left middle digit. Can continue with the finger splint as needed to protect the finger but encouraged her to remove the splint and work on gentle range of motion. We discussed that the fracture should heal in 2 to 3 weeks. She can follow-up on an as-needed basis. The patient continues to work and feels that she is able to do her full job. Ms. Delon Haji was advised as to contrast therapies and/or to take analgesics/anti-inflammatories as needed and all contraindications were reviewed. OBJECTIVE: Ms. Delon Haji is a pleasant 33 year old in no apparent distress. Gen:LMP 02/28/2018 nl development, non obese, no deformities ENT: Normocephalic, normal hearing, moist mucosa CV: Pulses:Radial= 2+ and symmetric, capillary refill < 2 secs, no peripheral edema/varicosities Skin: no rash, bruising or lesions. Good turgor. Psych: cooperative and appropriate, alert and oriented x 3, good mood and affect. Musculoskeletal: Left middle digit with mild but appropriate edema, nail is clean dry and intact, no lacerations of the skin. Tenderness to palpation over the left middle distal phalanx. Patient is able to form a loose composite fist, can flex and extend the left middle digit at the MCP, PIP and DIP joints. Subjective numbness of the pad of the left middle digit. Imaging: IMPRESSION: Suspect nondisplaced fracture tuft of the LEFT 3rd distal phalanx. District Plant Engineer: DARREN Transcribe Date/Time: Sep 22 2023 11:32A Dictated by : JANIE MCDOWELL DO This examination was interpreted and the report reviewed and electronically signed by: JAINE MCDOWELL DO on Sep 22 2023 11:35AM EST Results-Findings * * *Final Report* * * DATE OF EXAM: Sep 22 2023 11:29AM WOX [id number] - XR DIGIT 3V FRONTAL/LAT/OBL LT / PROCEDURE REASON: Injury of finger of left hand, initial encounter * * * * Physician Interpretation * * * * EXAMINATION: XR DIGIT 3V FRONTAL/LAT/OBL LT PATIENT/TECHNOLOGIST PROVIDED HISTORY: smashed her left long finger at work last night CLINICAL INFORMATION: 33 years old Female with Injury of finger of left hand, initial encounter TECHNIQUE: XR DIGIT 3V FRONTAL/LAT/OBL LT Laterality: LEFT Number of different views (projections): 3 COMPARISON: None. RESULT: Suspect nondisplaced fracture tuft of the 3rd distal phalanx only visualized on the frontal view. Visualized joint spaces are maintained. Supporting Subjective Information Below: Past Surgical History: PAST SURGICAL HISTORY Procedure Laterality Date NONE Medications: Current Outpatient Medications Medication Sig lamoTRIgine ER (LAMICTAL XR) 300 mg 24 [...] daily. (Patient not taking: Reported on 03/03/2019) Impgjgxs-Me-Bgt-Fe-FA tab (more content not included)... [facility] 09-27-2023 History of Present illness Narrative Becky Jules PA-C Department of Orthopaedics Orthopaedics [address] [facility] [address] Dept: [phone] Dept September 27, 2023 CHIEF COMPLAINT: New and Fracture of the Left Hand (Middle finger) Ms. Delon Haji is a 33 year old female who presents with an injury to her left middle finger which occurred at work on September 21. Patient states she was helping a coworker with the machine that was jammed, and an additional part came down and struck the top of her finger. She was seen in the emergency room and placed in a finger splint and given an oral antibiotic, she discontinued the antibiotic as it caused GI upset. Pain today is a 7 out of 10 continuous aching. She is right-hand dominant. Denies any previous left hand injuries. She is a young daughter, diaper changes are the most painful for her. This is [facility]. ASSESSMENT: No diagnosis found. PLAN: She has a tuft fracture of the left middle digit. Can continue with the finger splint as needed to protect the finger but encouraged her to remove the splint and work on gentle range of motion. We discussed that the fracture should heal in 2 to 3 weeks. She can follow-up on an as-needed basis. The patient continues to work and feels that she is able to do her full job. Ms. Delon Haji was advised as to contrast therapies and/or to take analgesics/anti-inflammatories as needed and all contraindications were reviewed. OBJECTIVE: Ms. Delon Haji is a pleasant 33 year old in no apparent distress. Gen:LMP 02/28/2018 nl development, non obese, no deformities ENT: Normocephalic, normal hearing, moist mucosa CV: Pulses:Radial= 2+ and symmetric, capillary refill < 2 secs, no peripheral edema/varicosities Skin: no rash, bruising or lesions. Good turgor. Psych: cooperative and appropriate, alert and oriented x 3, good mood and affect. Musculoskeletal: Left middle digit with mild but appropriate edema, nail is clean dry and intact, no lacerations of the skin. Tenderness to palpation over the left middle distal phalanx. Patient is able to form a loose composite fist, can flex and extend the left middle digit at the MCP, PIP and DIP joints. Subjective numbness of the pad of the left middle digit. Imaging: IMPRESSION: Suspect nondisplaced fracture tuft of the LEFT 3rd distal phalanx. 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 RESULT: Suspect nondisplaced fracture tuft of the 3rd distal phalanx only visualized on the frontal view. Visualized joint spaces are maintained. Supporting Subjective Information Below: Past Surgical History: PAST SURGICAL HISTORY Procedure Laterality Date NONE Medications: Current Outpatient Medications Medication Sig lamoTRIgine ER (LAMICTAL XR) 300 mg 24 hr tablet Take 600 mg by mouth daily at bedtime. lamoTRIgine ER (LAMICTAL XR) 100 mg 24 hr tablet Take 1 tablet by mouth at bedtime. (take with 600 mg dose total 700 mg daily) cephALEXin (KEFLEX) 500 mg capsule Take 1 capsule by mouth four times daily for 5 days. (Patient not taking: Reported on 09/27/2023) penicillin V potassium (V-CILLIN, VEETIDS) 500 mg [...] daily. (Patient not taking: Reported on 03/03/2019) Ustlovcu-Sz-Nqt-Fe-FA tab Take 1 tablet by mouth once daily. (Patient not taking: Reported on 03/03/2019) Ferrous Sulfate, Dried (SLOW RELEASE IRON) 160 mg (50 mg iron) TbER Take 1 tablet by mouth once daily. (Patient not taking: Reported on 03/03/2019) folic acid 1 mg tablet Take 1 tablet by mouth once daily. (Patient not taking: Reported on 03/03/2019) No current facility-administered medications for this visit. Allergies: Keflex [Cephalexin] and Tomato ROS: General (negative for fatigue, malaise, weight loss/gain) HEENT (negative for headache, earache, recent vision changes, sinus pain, sore throat) Respiratory (no recent shortness of breath, hemoptysis) CV (negative for chest tightness, palpitations) Musculoskeletal (see HPI) Psych (no depression, anxiety) This note was partially generated using [employer] voice recognition system, and there may be some incorrect words, spellings, and punctuation that were not noted in checking the note before saving. Becky Jules PA-C Patient presents with: Left Hand - New, Fracture: Middle finger AMB ROOMING INTAKE FLOWSHEET DATA Pain Pain Level: 7 Pain Location: Hand-Left (middle finger) Duration Amount of Time: 1.5 Duration Units: Weeks Frequency: Continuous Pt with injury to left middle finger. Pt was prescribed keflex for infection of area but only completed 1 day d/t nausea from medication. Not taking anything else at home for pain. documented in this encounter [facility] 09-27-2023 Note HNO ID: [id number] Author: GIULIANA BIRD RN Service: ? Author Type: Registered Nurse Type: Progress Notes Filed: 09/27/2023 14:49 Note Text: Patient presents with: Left Hand - New, Fracture: Middle finger AMB ROOMING INTAKE FLOWSHEET DATA Pain Pain Level: 7 Pain Location: Hand-Left (middle finger) Duration Amount of Time: 1.5 Duration Units: Weeks Frequency: Continuous Pt with injury to left middle finger. Pt was prescribed keflex for infection of area but only completed 1 day d/t nausea from medication. Not taking anything else at home for pain. [facility] 09-27-2023 Note HNO ID: [id number] Author: VIET ESPARZA DO Service: ? Author Type: Physician Type: Progress Notes Filed: 09/27/2023 08:56 Note Text: opened in error no charge, visit rescheduled. [facility] 09-27-2023 History of Present illness Narrative opened in error no charge, visit rescheduled. documented in this encounter [facility] 09-27-2023 Instructions Viet Esparza V, DO - 09/27/2023 8:56 AM EST opened in error- documented in this encounter [facility] 09-22-2023 Instructions Meg Ortez APRN.CNP - 09/22/2023 11:47 AM EST R.I.C.E. The general care of your injury includes the following: Resting, Icing, Compressing and Elevating the injured area. Remember this as "RICE." REST: Limit the use of the injured body part. ICE: By applying ice to the affected area, swelling and pain can be reduced. Place some ice cubes in a re-sealable (Ziploc) bag and add some water. Put a thin washcloth between the bag and your skin. Apply the ice bag to the area for at least 20 minutes. Do this at least 4 times per day. Using the ice for longer times and more frequently is OK. NEVER APPLY ICE DIRECTLY TO THE SKIN. COMPRESS: Compression means to apply pressure around the injured area such as with a splint, cast or an rafa bandage. Compression decreases swelling and improves comfort. Compression should be tight enough to relieve swelling but not so tight as to decrease circulation. Increasing pain, numbness, tingling, or change in skin color, are all signs of decreased circulation. ELEVATE: Elevate the injured part. For example, elevate your foot by placing it on a chair while sitting, or propping it up on pillows when lying down. documented in this encounter [facility] 09-22-2023 History of Present illness Narrative Radiology Service Progress Note PATIENT NAME: Delon Haji DATE OF SERVICE: September 22, 2023 TIME: 11:23 AM PATIENT IDENTITY VERIFICATION COMPLETED USING TWO (2) IDENTIFIERS: Name and Date of confirmed by patient verbally. FALL SCREENING: Has the patient had 2 falls in the last year or 1 fall with injury or currently using an Ambulatory Assistive Device (Walker, Cane, Wheelchair, Crutches, etc.)? No PATIENT GENDER DATA: Female. status: : No status: NO. PATIENT RELEVANT IMPLANT DATA REVIEWED: Not Applicable PATIENT PRESENTS WITH AN IMPLANTABLE OR ATTACHED EVENTS SOLUTIONS CONSULTANT: No RADIOLOGY DEPARTMENT: General X-ray: Exam(s) Completed: Upper Extremity X-Ray(s): Fingers/Thumb, left PERIPHERAL IV DATA: Not applicable SIGNED BY: CELIA Marquez) September 22, 2023 11:23 AM documented in this encounter [facility] 09-22-2023 Note HNO ID: [id number] Author: CRISTINA MEJIAS RT(R) Service: Radiology Author Type: Technologist Type: Progress Notes Filed: 09/22/2023 11:29 Note Text: Radiology Service Progress Note PATIENT NAME: Delon Haji DATE OF SERVICE: September 22, 2023 TIME: 11:23 AM PATIENT IDENTITY VERIFICATION COMPLETED USING TWO (2) IDENTIFIERS: Name and Date of confirmed by patient verbally. FALL SCREENING: Has the patient had 2 falls in the last year or 1 fall with injury or currently using an Ambulatory Assistive Device (Walker, Cane, Wheelchair, Crutches, etc.)? No PATIENT GENDER DATA: Female. status: : No status: NO. PATIENT RELEVANT IMPLANT DATA REVIEWED: Not Applicable PATIENT PRESENTS WITH AN IMPLANTABLE OR ATTACHED EVENTS SOLUTIONS CONSULTANT: No RADIOLOGY DEPARTMENT: General X-ray: Exam(s) Completed: Upper Extremity X-Ray(s): Fingers/Thumb, left PERIPHERAL IV DATA: Not applicable SIGNED BY: Cristina Mejias RT(R) September 22, 2023 11:23 AM [facility] 09-22-2023 Note HNO ID: [id number] Author: MEG ORTEZ APRN.SAP BASIS ARCHITECT Service: ? Author Type: Nurse Practitioner Type: Progress Notes Filed: 09/22/2023 12:02 Note Text: This note was created using GraphLabriter. Subjective Delon Haji is a 33 year old female. 33 year old female with PMH epilepsy presents for finger injury Acute onset yesterday Left middle finger +bruising +swelling +reduced and limited ROM States that she Smashed middle finger between two steel bars, each weighing approximately 30 lbs Denies accompanying injury Denies neck or back pain Denies head injury Denies blood thinners RIght hand dominant The history is provided by the patient. No manager integrated was used. Musculoskeletal Problem This is a new problem. The current episode started yesterday. The problem occurs constantly. The problem has been unchanged. Pertinent negatives include no abdominal pain, anorexia, arthralgias, change in bowel habit, chest pain, chills, congestion, coughing, diaphoresis, fatigue, fever, headaches, joint swelling, myalgias, nausea, neck pain, numbness, rash, sore throat, swollen glands, urinary symptoms, vertigo, visual change, vomiting or weakness. Exacerbated by: touching and movement. She has tried nothing for the symptoms. The treatment provided no relief. PAST MEDICAL HISTORY Diagnosis Date Depression Epilepsy [...] 600 mg dose total 700 mg daily) cephALEXin (KEFLEX) 500 mg capsule Take 1 capsule by mouth four times daily for 5 days. penicillin V potassium [...] daily. (Patient not taking: Reported on 03/03/2019) Jlvorqty-Br-Sex-Fe-FA tab Take 1 tablet by mouth once [...] Crystal Meth Comment: none x 2 yrs Review of Systems Constitutional: Negative for chills, diaphoresis, fatigue and fever. HENT: Negative for congestion and sore throat. Eyes: Negative for photophobia, pain, discharge, redness, itching and visual disturbance. Respiratory: Negative for apnea, cough, choking and chest tightness. Cardiovascular: Negative for chest pain. Gastrointestinal: Negative for abdominal pain, anorexia, change in bowel habit, nausea and vomiting. Musculoskeletal: Negative for arthralgias, joint swelling, myalgias and neck pain. Left middle finger Skin: Negative for rash. Allergic/Immunologic: Negative for environmental allergies, food allergies and immunocompromised state. Neurological: Negative for vertigo, weakness, numbness and headaches. Hematological: Negative for adenopathy. Does not bruise/bleed easily. Psychiatric/Behavioral: Negative for agitation and behavioral problems. Objective BP 110/64 Pulse 88 Temp 36.8 ?C (98.2 ?F) Resp 16 Wt 88.5 kg (195 lb) LMP 02/28/2018 SpO2 98% BMI 28.80 kg/m? Physical Exam Vitals and nursing note reviewed. Constitutional: General: She is not in acute distress. Appearance: Normal appearance. She is normal weight. She is not ill-appearing, toxic-appearing or diaphoretic. HENT: Head: Normocephalic and atraumatic. Right Ear: Ear canal and external ear normal. Left (more content not included)... [facility] 09-22-2023 History of Present illness Narrative This note was created using GraphLabriter. Subjective Delon Haji is a 33 year old female. 33 year old female with PMH epilepsy presents for finger injury Acute onset yesterday Left middle finger +bruising +swelling +reduced and limited ROM States that she Smashed middle finger between two steel bars, each weighing approximately 30 lbs Denies accompanying injury Denies neck or back pain Denies head injury Denies blood thinners RIght hand dominant The history is provided by the patient. No manager integrated was used. Musculoskeletal Problem This is a new problem. The current episode started yesterday. The problem occurs constantly. The problem has been unchanged. Pertinent negatives include no abdominal pain, anorexia, arthralgias, change in bowel habit, chest pain, chills, congestion, coughing, diaphoresis, fatigue, fever, headaches, joint swelling, myalgias, nausea, neck pain, numbness, rash, sore throat, swollen glands, urinary symptoms, vertigo, visual change, vomiting or weakness. Exacerbated by: touching and movement. She has tried nothing for the symptoms. The treatment provided no relief. PAST MEDICAL HISTORY Diagnosis Date Depression Epilepsy [...] 600 mg dose total 700 mg daily) cephALEXin (KEFLEX) 500 mg capsule Take 1 capsule by mouth four times daily for 5 days. penicillin V potassium [...] daily. (Patient not taking: Reported on 03/03/2019) Jsuimium-Mw-Dcv-Fe-FA tab Take 1 tablet by mouth once [...] Crystal Meth Comment: none x 2 yrs Review of Systems Constitutional: Negative for chills, diaphoresis, fatigue and fever. HENT: Negative for congestion and sore throat. Eyes: Negative for photophobia, pain, discharge, redness, itching and visual disturbance. Respiratory: Negative for apnea, cough, choking and chest tightness. Cardiovascular: Negative for chest pain. Gastrointestinal: Negative for abdominal pain, anorexia, change in bowel habit, nausea and vomiting. Musculoskeletal: Negative for arthralgias, joint swelling, myalgias and neck pain. Left middle finger Skin: Negative for rash. Allergic/Immunologic: Negative for environmental allergies, food allergies and immunocompromised state. Neurological: Negative for vertigo, weakness, numbness and headaches. Hematological: Negative for adenopathy. Does not bruise/bleed easily. Psychiatric/Behavioral: Negative for agitation and behavioral problems. Objective BP 110/64 Pulse 88 Temp 36.8 C (98.2 F) Resp 16 Wt 88.5 kg (195 lb) LMP 02/28/2018 SpO2 98% BMI 28.80 kg/m Physical Exam Vitals and nursing note reviewed. Constitutional: General: She is not in acute distress. Appearance: Normal appearance. She is normal weight. She is not ill-appearing, toxic-appearing or diaphoretic. HENT: Head: Normocephalic and atraumatic. Right Ear: Ear canal and external ear normal. Left Ear: Ear canal and external ear normal. Nose: Nose normal. No congestion or rhinorrhea. Mouth/Throat: Mouth: Mucous membranes are moist. Pharynx: No oropharyngeal exudate or posterior oropharyngeal erythema. Eyes: General: Right eye: No discharge. Left eye: No discharge. Extraocular Movements: Extraocular movements intact. Conjunctiva/sclera: Conjunctivae normal. Pupils: Pupils are equal, round, and reactive to light. Cardiovascular: Rate and Rhythm: Normal rate and regular rhythm. Pulses: Normal pulses. Heart sounds: Normal heart sounds. No murmur heard. No friction rub. Pulmonary: Effort: Pulmonary effort is normal. No respiratory distress. Breath sounds: Normal breath sounds. No stridor. No wheezing, rhonchi or rales. Chest: Chest wall: No tenderness. Abdominal: General: Abdomen is flat. There is no distension. Palpations: Abdomen is soft. There is no mass. Tenderness: There is no abdominal tenderness. There is no right CVA tenderness, left CVA tenderness, guarding or rebound. Hernia: No hernia is present. Musculoskeletal: General: Swelling and tenderness present. No deformity or signs of injury. Cervical back: Normal range of motion and neck supple. No rigidity. Right lower leg: No edema. Left lower leg: No edema. Comments: Left middle finger with diffuse swelling and ecchymosis noted at proximal phalanx +flexion +extension Reduced and limited ROM Subungual hematoma Hands are discolored and stained throughout Skin intact Lymphadenopathy: Cervical: No cervical adenopathy. Skin: General: Skin is warm and dry. Capillary Refill: Capillary refill takes less than 2 seconds. Coloration: Skin is not jaundiced or pale. Findings: No bruising, erythema, lesion or rash. Neurological: General: No focal deficit present. Mental Status: She is alert and oriented to person, place, and time. Cranial Nerves: No cranial nerve deficit. Sensory: No sensory deficit. Motor: No weakness. Coordination: Coordination normal. Gait: Gait normal. Psychiatric: Mood and Affect: Mood normal. Behavior: Behavior normal. Thought Content: Thought content normal. Judgment: Judgment normal. Assessment and Plan ASSESSMENT/PLAN: 1. Injury of finger of left hand, initial encounter - ICD9: 959.5, ICD10: S69.92XA (primary diagnosis) Occurred yesterday Smashed between two steel bars - XR DIGIT GENERAL 3V FRONTAL/LAT/OBL LEFT-Suspect nondisplaced fracture tuft of the LEFT 3rd distal phalanx. - CONSULT TO ORTHOPAEDICS 2. Closed fracture of tuft of distal phalanx of finger - ICD9: 816.02, ICD10: S62.639A Aluminum finger splint applied Rafa wrap RICE therapy OTC analgesics - CONSULT TO ORTHOPAEDICS-appt made at time of exam Discussed red flags 3. Subungual hematoma of finger, initial encounter - ICD9: 923.3, ICD10: S60.10XA Greater than 24 hours Underlying tuft fracture RX Keflex F/U with hand Meg Ortez APRN.[employer] BASIS ARCHITECT documented in this encounter [facility] 08-21-2023 Hospital Discharge instructions Patient Education 08/21/2023 18:23:18 First Aid: Seizures First Aid: Seizures A seizure results from a sudden lewis of abnormal electrical signals in the brain. Symptoms may range from a minor daze to uncontrollable muscle spasms (convulsions). In many cases, the victim will lose consciousness. A seizure can be caused by a high fever, head injury, drug reaction, or condition such as epilepsy. Step 1. Protect the head Help the victim to the floor if he or she starts losing muscle control. Turn the person on his or her side for better breathing and to prevent choking and aspiration. Protect the victim's head from injury by placing something soft, such as folded clothes, beneath it, and by moving objects away from the victim. Don't cause injury by restraining the person or by placing anything in his or her mouth. Don't try to hold the person's tongue. Remove eyeglasses. Step 2. Preserve dignity Clear away bystanders. Reassure the victim, who may be confused, drowsy, or hostile when coming out of the seizure. Cover the person or provide dry clothes if muscle spasms have caused a loss of bladder control. Step 3. Check for injury Make sure the victim's mental state has returned to normal. One way to do this is to ask the person his or her name, the year, and your location. Injuries can occur to the head, mouth, tongue, or body. Step 4. Call 911 If the seizure lasts longer than 5 minutes. Timing the seizure and recovery time is helpful in many cases. If a second seizure occurs If the victim doesn t regain consciousness If the victim is , has diabetes, or heart disease If the victim has no history of seizures If the person has sustained an injury during the seizure. 4580-1643 [employer]. [address] [place] [address], [place] [address]. All rights reserved. This information is not intended as a substitute for professional medical care. Always follow your healthcare professional's instructions. Follow Up Care 08/21/2023 12:44:12 With:[facility] Address: When:2-4 days With:Follow up with primary care provider Address:Unknown When:2-4 days With:Call Physician Referral Address:Unknown When:2-4 days [facility] 08-21-2023 Emergency department Discharge summary Discharge Instructions Thank you for allowing [facility] to assist you with your healthcare needs. The following is important discharge information regarding your hospital visit. Diagnosis from Today's Visit Breakthrough seizure History of epilepsy Seizure What to Do Next Instructions from Your Care Team Discharge Return to Work, School, or Sports (Return to Work, School, or Sports) - Ordered -- 08/22/23, May return to: work, 08/21/23 18:23:00 EST Post Acute Orders No qualifying data available. You Need to Schedule the Following Appointments Follow Up with [facility] neurology When Within 2-4 days Where: Follow Up with Follow up with primary care provider When Within 2-4 days Follow Up with Call Physician Referral When Within 2-4 days Allergies NKA Medications Please ask your primary doctor or pharmacist before taking any other medication not listed, including over the counter drugs, herbal medications, vitamins and or supplements as they may interact with your home medications. Please take this list to your next doctor s visit. Bring all medications you take, including over the counter medications, herbals and other supplements with you to your doctor s visit. Patients and families are reminded to discard old lists and to update any records with all medication providers or retail pharmacies. Education Materials First Aid: Seizures A seizure results from a sudden lewis of abnormal electrical signals in the brain. Symptoms may range from a minor daze to uncontrollable muscle spasms (convulsions). In many cases, the victim will lose consciousness. A seizure can be caused by a high fever, head injury, drug reaction, or condition such as epilepsy. Step 1. Protect the head Help the victim to the floor if he or she starts losing muscle control. Turn the person on his or her side for better breathing and to prevent choking and aspiration. Protect the victim's head from injury by placing something soft, such as folded clothes, beneath it, and by moving objects away from the victim. Don't cause injury by restraining the person or by placing anything in his or her mouth. Don't try to hold the person's tongue. Remove eyeglasses. Step 2. Preserve dignity Clear away bystanders. Reassure the victim, who may be confused, drowsy, or hostile when coming out of the seizure. Cover the person or provide dry clothes if muscle spasms have caused a loss of bladder control. Step 3. Check for injury Make sure the victim's mental state has returned to normal. One way to do this is to ask the person his or her name, the year, and your location. Injuries can occur to the head, mouth, tongue, or body. Step 4. Call 911 If the seizure lasts longer than 5 minutes. Timing the seizure and recovery time is helpful in many cases. If a second seizure occurs If the victim doesn t regain consciousness If the victim is , has diabetes, or heart disease If the victim has no history of seizures If the person has sustained an injury during the seizure. [id number] [employer]. [address] [place], [place] [id number]. All rights reserved. This information is not intended as a substitute for professional medical care. Always follow your healthcare professional's instructions. Additional Information VACCINATE! IT SAVES LIVES! Members of the community who have not yet received the COVID-19 vaccine and would like to receive it can visit one of [facility] vaccine clinics. There are many vaccine clinic locations within the [facility]. For locations and available times, please visit [email or web address] [email or web address] It is important to note that some COVID mobile vaccine clinics are held outdoors and may be canceled in rainy or stormy conditions. To learn more about pediatric vaccinations (ages 5-11), we invite you to visit the [facility] webpage. [email or web address] To learn more about the COVID-19 vaccine, we invite you to visit the CDC website for a list of frequently asked questions. https://www.cdc.gov/coronavirus/2 019-ncov/vaccines/faq.html [facility] Patient Portal Access Instructions: Stay connected with your healthcare team and access your personal medical information anytime with the [facility] Patient Portal. If you would like a full copy of your medical records please contact the [facility] Medical Records Department Wednesday through Wednesday between 8a.m. and 4:30p.m. Please follow the directions below to access the portal: 1.Access the email account you provided upon registration to the [facility].2.Look for an invitation email from [facility].3.Open the email and access the invitation link: [facility] to [facility].Fill in the required noguera to create your account. Sign into www.[employer] with your username and password that you created in the above steps to stay up to date. You can then view a summary of results, a summary of your visits, and the ability to download your summaries to your computer or send the information securely to a physician. Remember that your healthcare information is confidential, so carefully consider who you will allow to register on the [employer] [facility] Patient Portal for access to your information. You can also access the [facility] Patient Portal on the [employer]. Simply click on "Health Records" under "Health Data" and then click on the [employer] logo. HOW TO SAFELY DISPOSE OF PRESCRIPTION MEDICATIONS Please use one of the following methods to safely dispose of your unused medications. 1.Use a drug disposal kit: the drug disposal pouch allows you to safely discard your old and unused drugs. Ask your nurse to give you one when you are discharged.2.Visit a local take-back location: Many local pharmacies and police departments have programs that collect old and unwanted prescription drugs. Call your local pharmacy or go to http://bit.ly/4H0Np8d to find one close to you.3.Make use of household items: Use cat litter or old coffee grounds to dispose medications if other options are not available. Mix your drugs with these household products, seal them in an airtight container and throw it into the garbage. Call [facility]: [phone] to be sure your drugs can be disposed of in this way. Some medicines may require a different approach.4.Never flush your medications down the toilet. IF YOU HAVE BEEN PRESCRIBED AN OPIOIDS FOR PAIN If you have been prescribed an opioid (such as hydrocodone, oxycodone or morphine), it is critical to understand the possible side effects and risks of opioid pain medications. Even when taken as directed, opioids can have several side effects including: Tolerance, meaning you might need to take more of a medication for the same pain relief. Nausea, vomiting and/or constipation. Sleepiness, dizziness, dry mouth, confusion, depression or itching. Physical dependence, meaning you have withdrawal symptoms when a medication is stopped ? this can develop within a few days. KNOW YOUR RESPONSIBILITIES It is important to know exactly how much and how often to take the opioid pain medications you are prescribed. Never take opioids in higher amounts or more often than prescribed. Do not combine opioids with alcohol or other drugs that cause drowsiness, such as benzodiazepines, also known as benzos, including diazepam and alprazolam, muscle relaxants or sleep aids. Never sell or share prescription opioids. This is illegal. Store opioids in a secure place and out of reach of others (including children, family, friends and visitors). The last page(s) of this document has been signed and retained as a CHART COPY Signatures Patient Education Materials First Aid: Seizures Medication Leaflets My discharge plan and instructions have been reviewed and explained to me and IADITHYA TIFFANY understand my current condition and have read and understand these discharge instructions. I have received a written copy of the plan/instructions. If I have questions, I am aware that I should contact my doctor. Patient/Reproduction Specialist Signature: Date/Time: Relationship to Patient: ____ Witness Name/Signature: Date/Time: [facility] 08-21-2023 Note Sinus rhythm EKG interpretation is noted and agreed to in [facility]. The interpretation of this patient's EKG contributed directly to the care and management of this patient. Electronic Signature: TANYAJACOB DO 08/21/2023 14:34:37 [facility] 08-21-2023 Note ORIGINAL EXAMINATION: CT OF THE HEAD WITHOUT CONTRAST 08/21/2023 2:02 pm TECHNIQUE: CT of the head was performed without the administration of intravenous contrast. Automated exposure control, iterative reconstruction, and/or weight based adjustment of the mA/kV was utilized to reduce the radiation dose to as low as reasonably achievable. COMPARISON: None. HISTORY: ORDERING SYSTEM PROVIDED HISTORY: Reason for Exam: seizures FINDINGS: BRAIN/VENTRICLES: There is no acute intracranial hemorrhage, mass effect or midline shift. No abnormal extra-axial fluid collection. The edward-white differentiation is maintained without evidence of an acute infarct. There is no evidence of hydrocephalus. ORBITS: The visualized portion of the orbits demonstrate no acute abnormality. SINUSES: The visualized paranasal sinuses and mastoid air cells demonstrate no acute abnormality. SOFT TISSUES/SKULL: No acute abnormality of the visualized skull or soft tissues. IMPRESSION: No acute intracranial abnormality. Interpreted by: Alberto Holland MD Preliminary Report By: Alberto Holland MD Electronically signed By Alberto Holland MD Dictated Date: 08/21/2023 2:06:29 PM Prelim Date: 08/21/2023 2:08:47 PM Sign Date: 08/21/2023 2:08:47 PM Ordering Provider: JACOB MARTÍNEZ [facility] 08-21-2023 Evaluation + Plan note Diagnostic Tests PendingLamotrigine (Lamictal), Serum 08/21/23 [facility] 03-24-2023 Note HNO ID: [id number] Author: Ginette Wasserman PA-C Service: ? Author Type: Physician Psychologist Educational Type: Progress Notes Filed: 03/24/2023 1:00 PM Note Text: HISTORY AND PHYSICAL Delon Haji 1990 REFERRING PHYSICIAN: No ref. provider found CHIEF COMPLAINT: left thigh abscess HPI: Delon is a 32 year old female with a complaint of a painful abscess on the left posterior thigh x 2 days. Denies fever or chills. The patient was seen in [facility] and was started on oral [...] taking: Reported on 03/03/2019) 30 capsule 1 Uzvhmymf-Xe-Vex-Fe-FA tab Take 1 tablet by mouth once [...] ?C (98.4 ?F), height 175.3 cm (5' 9"), weight 83.3 kg (183 lb 9.6 oz), [...] DRAINAGE OF left posterior thigh ABSCESS PLAN: Delon is instructed to remove packing tomorrow and [...] is instructed to (more content not included)... [facility] 03-24-2023 History of Present illness Narrative HISTORY AND PHYSICAL Delon Haji 1990 REFERRING PHYSICIAN: No ref. provider found CHIEF COMPLAINT: left thigh abscess HPI: Deoln is a 32 year old female with a complaint of a painful abscess on the left posterior thigh x 2 days. Denies fever or chills. The patient was seen in [facility] and was started on oral antibiotics. SIGNIFICANT [...] taking: Reported on 03/03/2019) 30 capsule 1 Prlbkbnt-Sq-Xia-Fe-FA tab Take 1 tablet by mouth once [...] C (98.4 F), height 175.3 cm (5' 9"), weight 83.3 kg (183 lb 9.6 oz), [...] DRAINAGE OF left posterior thigh ABSCESS PLAN: Delon is instructed to remove packing tomorrow and [...] all above and agreed with the plan Ginette Wasserman PA-C UNIVERSAL PROTOCOL / SAFETY CHECKLIST Procedure [...] Cheryl Arizmendi RN documented in this encounter [facility] 03-12-2023 Instructions Cheryl Arizmendi RN - 03/12/2023 3:50 PM EDT The following instructions are important for you related to your office visit today with the [facility] General Surgeons. Instructions After ABSCESS DRAINAGE [...] you should contact our office immediately @ [phone] and ask to be transferred to the General Surgery department. documented in this encounter [facility] 03-12-2023 Note HNO ID: [id number] Author: Cheryl Arizmendi RN Service: ? Author [...] Visit completed when applicable. Cheryl Arizmendi RN [facility] 03-12-2023 Nurse Note REVIEW OF SYSTEMS: General: [...] Tequila Barry LPN documented in this encounter [facility] 03-11-2023 Note HNO ID: [id number] Author: Davina Thomas APRN.SAP BASIS ARCHITECT Service: ? Author Type: Nurse Practitioner Type: Progress Notes Filed: 03/11/2023 12:36 PM Note Text: Subjective HPI HPI Delon Haji is a 32 year old female [...] daily. (Patient not taking: Reported on 03/03/2019) Qzqkansb-Mo-Gmn-Fe-FA tab Take 1 tablet by mouth once [...] MG TABLET - CONSULT TO GENERAL SURGERY Davina Thomas APRN.MAT [facility] 03-11-2023 History of Present illness Narrative Images from the original note were not included. Subjective HPI HPI Delon Haji is a 32 year old female [...] daily. (Patient not taking: Reported on 03/03/2019) Bjfdcpnc-Nb-Qcu-Fe-FA tab Take 1 tablet by mouth once [...] MG TABLET - CONSULT TO GENERAL SURGERY Davina Thomas APRN.MAT documented in this encounter [facility] 06-01-2022 Telephone encounter Note Medication Access Team coordinated the following: [facility] Clinics: MS/Neurology Prior Authorization Per the patient's insurance provider, Laura, the prior authorization for Lamotrigine 300mg SR (on-label) was approved. Authorization number: [id number] Authorization start date: 05/27/22 Authorization end date: 05/26/23 Non-Specialty Prescriptions: 1, 6-8 min Bettye Jacques [facility] 06-01-2022 Miscellaneous Notes Medication Access Team coordinated the following: [facility] PAC Clinics: MS/Neurology Prior Authorization Per the patient's insurance provider, Laura the prior authorization for Lamotrigine 300mg SR (on-label) was approved. Authorization number: [id number] Authorization start date: 05/27/22 Authorization end date: 05/26/23 Non-Specialty Prescriptions: 1, 6-8 min Bettye Jacques Per Laura condon Lamotrigine PA is still under review documented in this encounter [facility] 05-29-2022 Telephone encounter Note Felix condon Lamotrigine PA is still under review [facility] 10-21-2021 Hospital Discharge instructions Patient Education 10/21/2021 17:36:00 Vomiting (Adult) Vomiting (Adult) Vomiting is a common symptom that may be due to different causes. These include gastroenteritis ("stomach flu"), food poisoning and gastritis. There are other [...] and water are not available, use alcohol-based hand gluer and slicer to keep from spreading the infection to [...] Yellow color of the eyes or skin [id number] [employer]. [address] [place] [address], [place] [address]. All rights reserved. This information is not intended as a substitute for professional medical care. Always follow your healthcare professional's instructions. Follow Up Care 10/21/2021 16:21:25 With:Call Physician Referral Address:Unknown When:2-4 days [facility] 09-19-2018 History of Past i llness Narrative Problem Noted Date Diagnosed Date Resolved Date [...] ordered for formal confirmation of chorionicity - KJ Chlamydia infection affecting 01/19/2017 05/19/2018 Overview: 01/19/17: [...] and to get an update from neuro. 05/26/18 - has appt with on 07/15/18. Nikunj Tate MD 05/19/18 - not on medication, needs to see neurology (patient plans to make her own appt) - Nikunj Tate MD Encounter for supervision of other normal 09/07/2014 05/19/2018 documented as of this encounter (statuses as of 03/11/2023) [facility] History of Past illness Narrative* Problem Noted [...] and to get an update from neuro. 05/26/18 - has appt with on 07/15/18. Nikunj Tate MD 05/19/18 - not on medication, needs to see neurology (patient plans to make her own appt) - Nikunj Tate MD Encounter for supervision of other normal 09/07/2014 05/19/2018 documented as of this encounter (statuses as of 03/24/2023) [facility] History of Past illness Narrative* Problem Noted [...] 01/14/2017 12/13/2018 History of epilepsy 01/14/2017 05/19/20 18 Overview: 01/14/2017 Patient has a history of [...] and to get an update from neuro. 05/26/18 - has appt with on 07/15/18. Nikunj Tate MD 05/19/18 - not on medication, needs to see neurology (patient plans to make her own appt) - Nikunj Tate MD Encounter for supervision of other normal 09/07/2014 05/19/2018 documented as of this encounter (statuses as of 09/22/2023) [facility] History of Past illness Narrative* Problem Noted [...] and doppler, at least once weekly NST. EB 07/14/18 - formal US confirms di/di twins [...] as of this encounter (statuses as of 09/27/2023) [facility] History of Past illness Narrative* Problem Noted [...] and doppler, at least once weekly NST. EB 07/14/18 - formal US confirms di/di twins [...] as of this encounter (statuses as of 09/27/2023) [facility] History of Past illness Narrative* Problem Noted [...] ordered for formal confirmation of chorionicity - KJ Chlamydia infection affecting 01/19/2017 05/19/2018 Overview: 01/19/17: [...] as of this encounter (statuses as of 11/12/2023) [facility] + Plan note No data available for this section [facility] Evaluation note* Diagnosis Seizure Other convulsions [facility] Diagnosis Cutaneous abscess of buttock- Primary Cellulitis and abscess of buttock [facility] Diagnosis Abscess of left thigh- Primary Cellulitis and abscess of leg, except foot [facility] Injury of finger of left hand, initial encounter- Primary Closed fracture of tuft of distal phalanx of finger Closed fracture of distal phalanx or phalanges of hand Subungual hematoma of finger, initial encounter [facility] Injury of finger of left hand, initial encounter Closed fracture of tuft of distal phalanx of finger Closed fracture of distal phalanx or phalanges of hand [facility] Diagnosis Closed fracture of tuft of distal phalanx of finger- Primary Closed fracture of distal phalanx or phalanges of hand Pain of finger of left hand Pain in limb [facility] Diagnosis Nonintractable epilepsy without status epilepticus, unspecified epilepsy type- Primary [facility] Diagnosis Procedure not carried out- Primary Procedure not carried out for other reasons [facility] Diagnosis Closed fracture of tuft of distal phalanx of finger- Primary Closed fracture of distal phalanx or phalanges of hand [facility] Diagnosis Injury of finger of left hand, initial encounter [facility] Diagnosis Local-rel symptc epi w cmplx prt seiz,not ntrct,w/o stat epi- Primary [facility] No data available for this section [facility] Diagnostic Procedure Only (Routine) - Pending Review Specialty Diagnoses / Procedures Referred By Contac t Referred To Contact XR IMAGING Diagnoses Closed fracture of tuft of distal phalanx of finger Procedures XR DIGIT GENERAL 3V FRONTAL/LAT/OBL LEFT RADEX FINGR MINIMUM 2 VIEWS Becky Jules PA-C [address] [place] [id number] [place] [address] Referral ID Status Reason Start Date Expiration Date Visits Requested Visits Authorized [id number] Pending Review Auto-Generat ed Referral 12/08/2023 01/06/2025 1 1 [facility] for referral (narrative)* Diagnostic Procedure Only (Urgent) - Closed Specialty Diagnoses / Procedures Referred By Contac t Referred To Contact XR IMAGING Diagnoses Injury of finger of left hand, initial encounter Procedures XR DIGIT GENERAL 3V FRONTAL/LAT/OBL LEFT RADEX FINGR MINIMUM 2 VIEWS Meg Ortez APRN.SAP BASIS ARCHITECT [address] [place] [address] [place] [address] Referral ID Status Reason Start Date Expiration Date V isits Requested Visits Authorized [id number] Closed Auto-Generate d Referral 09/22/2023 10/21/2024 1 1 [facility] for visit Narrative* Diagnostic Procedure Only (Urgent) - Closed Specialty Diagnoses / Procedures Referred By Contac t Referred To Contact XR IMAGING Diagnoses Injury of finger of left hand, initial encounter Procedures XR DIGIT GENERAL 3V FRONTAL/LAT/OBL LEFT RADEX FINGR MINIMUM 2 VIEWS Meg Ortez APRN.MAT [address] [place] [address] [place] [address] Referral ID Status Reason Start Date Expiration Date V isits Requested Visits Authorized [id number] Closed Auto-Generate d Referral 09/22/2023 10/21/2024 1 1 [facility] Reason for Referral Specialty Diagnoses / Procedures Referred By Contac t Referred To Contact Orthopedics Diagnoses Injury of finger of left hand, initial encounter Closed fracture of tuft of distal phalanx of finger Procedures CONSULT TO ORTHOPAEDICS OFFICE/OUTPATIENT [facility] 60 MINUTES Meg Ortez, BOOK OR SCRIPT EDITOR.SAP BASIS ARCHITECT [address] [place] [address] Referral ID Status Reason Start Date Expiration Date Visits Requested Visits Authorized [id number] Authorized PCP Requested Referral 09/22/2023 09/21/2024 1 1 Specialty Diagnoses / Procedures Referred By Contac t Referred To Contact XR IMAGING Diagnoses Injury of finger of left hand, initial encounter Procedures XR DIGIT GENERAL 3V FRONTAL/LAT/OBL LEFT RADEX FINGR MINIMUM 2 VIEWS Meg Ortez, BOOK OR SCRIPT EDITOR.SAP BASIS ARCHITECT [address] [place] [address] [place] [address] Referral ID Status Reason Start Date Expiration Date V isits Requested Visits Authorized [id number] Closed Auto-Generate d Referral 09/22/2023 10/21/2024 1 1 Specialty Diagnoses / Procedures Referred By Contac t Referred To Contact General Surgery Diagnoses Cutaneous abscess of buttock Procedures CONSULT TO GENERAL SURGERY OFFICE/OUTPATIENT [facility] 60-74 MINUTES Davina Thomas, BOOK OR SCRIPT EDITOR.SAP BASIS ARCHITECT [address] [place] [address] Referral ID Status Reason Start Date Expiration Date Visits Requested Visits Authorized [id number] Authorized PCP Requested Referral 03/11/2023 03/10/2024 1 1 Specialty Diagnoses / Procedures Referred By Contac t Referred To Contact Diagnoses Seizure Procedures MRI BRAIN WITHOUT CONTRAST AR MRI BRAIN Nery Ziegler MBBS [address] [place] [address] Referral ID Status Reason Start Date Expiration Date Visits Re quested Visits Authorized [id number] Closed 12/23/2021 01/17/2023 1 1 Summary Purpose Family History No Family History Records Found No data available for this section No data available for this section No Family History Records FoundNo Family History Records Found No data available for this section No data available for this section No Family History Records FoundNo Family History Records FoundNo Family History Records Found Advance Directives No Advanced Directives Records FoundNo Advanced Directives Records FoundNo Advanced Directives Records FoundNo Advanced Directives Records FoundNo Advanced Directives Records FoundNo Advanced Directives Records Found Additional Source Comments Care Team (unrecognized sect ion and content) Linen Manager Relationship Specialty Start Date End Date Nery Ziegler MBBS [address] [place] [address] [phone] PCP - General Neurology 07/26/21 Linen Manager Relationship Specialty Start Date End Date Tonja Xie APRN-CNP [address] [phone] Nurse Practitioner Neurology 02/24/22 [facility] [address] [place] [phone] 02/24/22 Linen Manager Relationship Specialty Start Date End Date Tonja Xie APRN-CNP [address] [place] [phone] Nurse Practitioner Neurology 02/24/22 [facility] [address] [address] 02/24/22 Linen Manager Relationship Specialty Start Date End Date Tonja Xie APRN-CNP [address] [phone] Nurse Practitioner Neurology 02/24/22 [facility], [facility] [address] [phone] 02/24/22 Reason for Visit (unrecogniz ed section and content) Reason Comments New Middle finger Fracture Middle finger Specialty Diagnoses / Procedures Referred By Huber ernandez Referred To Contact Orthopedics Diagnoses Injury of finger of left hand, initial encounter Closed fracture of tuft of distal phalanx of finger Procedures CONSULT TO ORTHOPAEDICS OFFICE/OUTPATIENT NEW HIGH MDM 60 MINUTES Meg Ortez, ALEXANDER.SAP BASIS ARCHITECT [address] [place] [address] [facility] Billing [address] [place] [address] Referral ID Status Reason Start Date Expiration Date V isits Requested Visits Authorized [id number] Closed PCP Requested Referral 09/22/2023 09/21/2024 1 1 Specialty Diagnoses / Procedures Referred By Huber t Referred To Contact Diagnoses Seizure Procedures MRI BRAIN WITHOUT CONTRAST AR MRI BRAIN Nery Ziegler MBBS [address] [place] [address] Referral ID Status Reason Start Date Expiration Date Visits Re quested Visits Authorized [id number] Closed 12/23/2021 01/17/2023 1 1 Reason Onset Date Comments Insurance 05/29/2022 Reason Comments Derm Problem Cyst or abscess L bu ttocks x1 day Reason Comments Consult Leg cyst Reason Comments Finger Injury left middle finger i njury x last night, smashed between 2 parts at work Reason Comments Left middle finger injury REF: Alban Ortez x-ray: 09/22/2023 Reason Comments Follow-up Reason Comments Thumb Injury Right thumb pain. X3 days Reason Comments Follow-up New to INFORMATION SOURCE (unrecogn ized section and content) DATE CREATED AUTHOR 04/04/2022 [facility] DATE CREATED AUTHOR AUTHOR'S ORGANIZ ATION 01/10/2024 [facility] DATE CREATED AUTHOR AUTHOR'S ORGANIZ ATION 01/13/2024 [facility] DATE CREATED AUTHOR AUTHOR'S ORGANIZ ATION 03/22/2024 [facility] ([place] DATE CREATED AUTHOR AUTHOR'S ORGANIZ ATION 01/02/2025 [facility] DATE CREATED AUTHOR AUTHOR'S ORGANIZ ATION 01/07/2025 [facility] Source Comments (unrecognize d section and content) In the event this informatio n is protected by the Federal Confidentiality of Alcohol and Drug Abuse Patient Records regulations: The Federal rules restrict any use of the information to criminally investigate or prosecute any alcohol or drug abuse patient.[facility] the event this information is protected by the Federal Confidentiality of Alcohol and Drug Abuse Patient Records regulations: The Federal rules restrict any use of the information to criminally investigate or prosecute any alcohol or drug abuse patient.[facility] the event this information is protected by the Federal Confidentiality of Alcohol and Drug Abuse Patient Records regulations: The Federal rules restrict any use of the information to criminally investigate or prosecute any alcohol or drug abuse patient.[facility] the event this information is protected by the Federal Confidentiality of Alcohol and Drug Abuse Patient Records regulations: The Federal rules restrict any use of the information to criminally investigate or prosecute any alcohol or drug abuse patient.[facility] the event this information is protected by the Federal Confidentiality of Alcohol and Drug Abuse Patient Records regulations: The Federal rules restrict any use of the information to criminally investigate or prosecute any alcohol or drug abuse patient.[facility] the event this information is protected by the Federal Confidentiality of Alcohol and Drug Abuse Patient Records regulations: The Federal rules restrict any use of the information to criminally investigate or prosecute any alcohol or drug abuse patient.[facility] the event this information is protected by the Federal Confidentiality of Alcohol and Drug Abuse Patient Records regulations: The Federal rules restrict any use of the information to criminally investigate or prosecute any alcohol or drug abuse patient.[facility] the event this information is protected by the Federal Confidentiality of Alcohol and Drug Abuse Patient Records regulations: The Federal rules restrict any use of the information to criminally investigate or prosecute any alcohol or drug abuse patient.[facility] FOR RECORDS PERTAINING TO PATIENTS WHO ARE [...] BE BASED ON THE PRIMARY CLINICAL RECORDS. [facility] [employer] [facility]. provides no warranty or guarantee of the accuracy or completeness of information in this document.
[2025-01-15 15:09] LABS: Lamotrigine (Lamictal) Level 7.6 ug/mL (2.0-20.0)
== END 2025-01-10 22:30 | disposition home or self-care (01) ==
PROVIDERS: Emergency Provider Emergency Medicine; Visit Provider Emergency Medicine
DX: R56.9 Unspecified convulsions (principal); S00.83XA Contusion of other part of head, initial encounter; F17.200 Nicotine dependence, unspecified, uncomplicated; W19.XXXA Unspecified fall, initial encounter
CPT/HCPCS: 80048; 82542; 99282; A4216

== ENCOUNTER 2025-01-14 12:01 | Emergency (ER) | payer SELFPAY ==
[2025-01-14 12:02] VITALS: BP 128/72; PULSE 97; RESP 16; TEMP 36.9; O2SAT 97; BMI 32.9
--- NOTE | 2025-01-14 12:15 | EDS_ITS ---
HPI History of Present Illness Chief Complaint: Back [facility] Medical History IUD (intrauterine device) in place Alcohol abuse Obesity Anxiety and depression History of chlamydia infection Tobacco use History of pre-term labor History of substance abuse Seizure disorder Home Medications ?Medication ?Instructions ?Recorded ?Last Taken ?Type lamotrigine 200 mg tablet,extended 800 mg PO 1700 10/2411/29/24 History release 24 hr multivitamin (Daily Multi-Vitamin 1 tab PO DAILY 01/10 Unknown History tablet) orphenadrine citrate 100 mg 100 mg PO BID 7 days #14 t abs 01/14/25 Unknown Rx tablet,extended release prednisone 20 mg tablet 20 mg PO DAILY 5 days #5 tab s 01/14/25 Unknown Rx Allergy/AdvReac Type Severity Reaction Status Date / Time tomato AdvReac Vomiting Verified 01/14/25 12:02 Family History Father Alcohol abuse Cataract Mother Seizures Surgical History No history of previous surgery Social History household members: spouse Smoking Status: Light Smoker (<10/day) alcohol intake: current alcohol intake frequency: 3 or more drinks per day Alcohol type: hard liquor details: 11/10/24 reporting ~ 1/2 bottle liquor daily. substance use type: former substance user Date of last use: Opiates/pain killers, methamphetamine prior, clean since 2010. what type of physical activity do you participate in: walking frequency: daily EXAM Physical Exam Const Vital Signs: 01/14/25 12:02 01/14/25 13:57 Temperature 98.5 F 98.5 F Temperature Source Oral Pulse Rate 97 97 Respiratory Rate 16 16 Blood Pressure 128/72 H 128/72 H Blood Pressure Mean 90 90 Pulse Ox 97 97 Oxygen Delivery Method Room Air MDM MDM MDM Narrative Medical decision making narrative: HISTORY OF PRESENT ILLNESS: 34-year-old female presents with acute onset of lower back pain. States this began last night. No inciting injury. No urinary complaints. Denies abdominal pain or syncope. Patient denies any saddle anesthesia, urinary tension, bowel or bladder incontinence, lower extremity weakness, fever or IV drug use, no recent spinal manipulation or surgery, no recent urinary catheterization. REVIEW OF SYSTEMS: All other systems reviewed and are negative except as noted in the history of present illness. At least 10 review of systems reviewed and are negative except as noted in history of present illness. PHYSICAL EXAM: Nursing triage notes reviewed, Vital signs reviewed Constitutional: please see mdm Lungs: Clear to auscultation, No wheezing or rales. No increased work of breathing, no conversational dyspnea, no accessory muscle use, no nasal flaring. No respiratory distress noted Heart: Regular rate and rhythm, No murmurs, No rubs and No gallops, 2+ distal pulses (radial, femoral, posterior tibial) in all extremities Abdomen: Soft, there is no tenderness, rigidity, rebound or guarding, no obvious peritoneal signs, no palpable pulsatile abdominal masses, no auscultated abdominal bruit : No CVAT Extremities: No edema Back: No midline step-offs or deformities, TTP over left lateral lumbar spine Neuro: Intact sensation L1-S1 dermatomal distributions. Intact 5/5 strength in hip flexion (T12-L3). Knee extension (L2-L4). Ankle dorsiflexion (L4-L5). Ankle plantar flexion (S1). Great toe extension (L5). 2+ patellar and Achilles DTRs. Skin: No rash or lesions noted MEDICAL DECISION MAKING: Chief Complaint: Back pain External records reviewed: Reviewed prior imaging studies: Reviewed MRI of the lumbar spine from 2019 which showed no fracture malalignment, no disc herniation, there are degenerative disc and facet changes Factors affecting care: Lumbar disc herniation Social determinants of health: No IV drug use History obtained from others: none Consults: none ALL IMAGES (IF OBTAINED) HAVE BEEN PERSONALLY REVIEWED AND INTERPRETED BY MYSELF. [facility] Narrative: Patient was initially hemodynamically stable, afebrile and nontoxic appearing. Exam without focal neurologic deficits in the lower extremities. No urinary complaints. I considered the following differential diagnosis: Musculoskeletal back pain, space-occupying lesion of the spinal (epidural abscess, epidural hematoma), cauda equina, conus medullaris, fracture dislocation, AAA, nephrolithiasis, pyelonephritis, aortic dissection The patient presented complaining of back pain. There was no history of recent fall or trauma. There was no evidence to support genitourinary etiology. There is also no evidence to suggest vascular pathology such as AAA dissection. No fevers or other evidence to suspect infectious processes, abscess, osteomyelitis etc. The patient?s neurological exam is normal with normal motor and sensory. There is no saddle paresthesias reported and no bowel or bladder incontinence or retention. I suspect the pain is mechanical in nature. Clinical suspicion, plan of care and management was discussed with the patient. The patient was instructed to follow up with their health care provider. She was given prescriptions for steroids and muscle relaxers and was given instructions to take OTC Tylenol, ibuprofen and lidocaine patches at home. The patient was also instructed to return if the pain worsened, changed, or developed weakness or bowel or bladder trouble. The patient agreed with plan. I completed a structured, evidence-based clinical evaluation to screen for acute non-traumatic spinal emergencies. The patient has a normal detailed neurologic exam and red flag historical factors were negative. The evidence indicates that the patient is very low risk for an acute spinal emergency and this is consistent with my clinical intuition. The risk of further workup is higher than the likelihood of the patient having a spinal epidural abs cess or other dangerous emergency spinal condition. It is, therefore, in the patient?s best interest not to do additional emergent testing at this time. Shared Decision-Making I have discussed with the patient my clinical impression and the result of an evidence-based clinical evaluation to screen for spinal epidural abscess and other spinal emergencies, as well as the risk of further testing and hospitalization. The evidence shows that the risk for an acute spinal emergency is less than 1%. Although the risk of an acute spinal emergency has not been completely eliminated, the risks of further testing likely exceed any potential benefit, and the patient agrees with not pursuing further emergent evaluation for causes of back pain at this time. The patient and/or family, caregivers express understanding. The patient and/or family, caregivers agrees with the plan. Total critical care time today provided was at least 0 minutes. This excludes separately billable procedures. Critical care time (if documented) is secondary to the patient having high probability of clinically significant/life threatening deterioration in the patient's condition which required my urgent intervention. Impression: 1. Acute back pain 2. History of degenerative disc disease Dispo: Discharge home Jack Sandoval DO Discharge Plan Triage Chief Complaint: Back ED Provider: Jack Sandoval Dx/Rx/DC Orders Clinical Impression: Back pain Instructions: ED Back Sprain/Strain Prescriptions: New prednisone 20 mg tablet 20 mg PO DAILY 5 Days Qty: 5 0RF orphenadrine citrate 100 mg tablet extended release 100 mg PO BID 7 Days Qty: 14 0RF No Action lamotrigine 200 mg tablet extended release 24hr 800 mg PO 1700 multivitamin [Daily Multi-Vitamin] Tablet 1 tab PO DAILY Stand Alone Forms: ED Work / School Excuse Primary Care Provider: Care Physician,No Primary Referrals: Alexis Bonds MD [Med Staff - Active Staff] - Activity Restrictions/Additional Instructions: Thank you for trusting us with your care today! Your history and physical exam were not consistent with a spine emergency. I suspect you have a musculoskeletal issue. Please take Tylenol (2 pills, 650 mg), ibuprofen (2 pills, 400 mg) every 6 hours as needed for pain and fever control. Please go to your local pharmacy or drugstore obtain Salonpas lidocaine patches Use these as directed Please take prescribed prednisone and muscle relaxers for additional relief. Please return to the emergency department if your symptoms change or worsen. Please follow with your primary care physician for further outpatient evaluation and management. Print Language: Dutch Disposition Disposition: Home, Self Care Discharge Date/Time: 01/14/25 14:04
--- OUTSIDE RECORDS SUMMARY | 2025-01-14 12:32 | XMS RPT_ITS | CCD ---
Author Organization [facility] Care Team Providers Care Chain Sales Representative Name Role Phone PHYSICIAN, NOT RECORDED Primary Care Physician U nicole SALCEDO, Nery Morgan Primary Care Provider Rojas NET TECHNICAL ARCHITECT-WOOD HEEL CEMENTER, Crystal G [facility], [place] [facility] Unavailable Unavailable Primary Care Provider Unavailabl e Rojas NET TECHNICAL ARCHITECT-WOOD HEEL CEMENTER, Crystal G [facility], [place] [facility] Unavailable [phone] PHYSICIAN, NONE Primary Care Physician Unavailab le Unavailable Primary Care Provider UnavailGINETTE Pineda Attending Unavailable MEG ORTEZ Referring Unavailable BECKY JULES Attending Unavailable VIET ESPARZA Attending Unavailable MEG ORTEZ Referring Unavailable MEG ORTEZ Referring Unavailable DYLON MCKENNA DO Attending Unavailable DYLON MCKENNA DO Primary Care Unavailable DYLON MCKENNA DO Admitting Unavailable DR JENA SWANSON MD Attending Unavailabl e PHYSICIAN, NONE Primary Care Unavailable PHYSICIAN, NOT RECORDED Primary Care Unavaila JACOB Livingston DO Attending Unavailable NORMA ECKERT DO Attending Unavailable PHYSICIAN, NONE Primary Care Unavailable ROQUE MEJÍA DO Attending Unavailable PHYSICIAN, NONE Primary Care Unavailable SELF, SELF Referring Unavailable ALISON THAKKAR Attending Unavailable Caro Chavez Attending Unavailable Care Physician, No Primary Primary Care Unava ilable Caro Chavez Consulting Unavailable Edwin Dumont Attending Unavailable Caro Chavez Admitting Unavailable Edwin Dumont Consulting Unavailable Olaf Astudillo Attending Unavailable Care Physician, No Primary Primary Care Unava ilable Care Physician, No Primary Primary Care Unava ilable Bradley Leach Attending Unavailable Alison Givens Attending Unavailable Alison Givens Referring Unavailable Care Physician, No Primary Primary Care Unava ilable Care Physician, No Primary Primary Care Unava ilable Maurisio Richards Attending Unavailable Care Physician, No Primary Primary Care Unava ilable Edvin Barrett Attending UnavailCaro Driscoll Consulting Unavailable Edwin Dumont Attending Unavailable Care Physician, No Primary Primary Care Unava ilable Caro Chavez Admitting Unavailable Allergies Allergy Classification Reported Allergen(s) Allergy Type Date of Onset Reaction(s) Facility (11 sources) tomato allergenic extract; Translations: [TOMATO] Drug Allergy 2 GI Upset [facility] (4 sources) Cephalexin; Translations: [CEPHALEXIN] Drug Allergy 4 GI [facility] Work Phone: (1 source) + MRSA Wound; Translations: [+ MRSA Wound] Propensity to adverse reactions (disorder) [facility] Medications Current Medications Medication Drug Class(es) Dates Sig (Normalized) Sig (Original) acetaminophen 325 mg / HYDROcodone bitartrate 5 mg oral tablet (1 source) Opioid Agonist Start: 11-14-2023 End: 11-17-2023 take 1 tablet by mouth every six hours as needed for pain [place] 325- 5 mg oral tablet Dose = [...] Comment on above: Take 1 capsule by [facility] four times daily for 5 days. cloBAZam [...] on above: Take 1 tablet by ramos once daily. ibuprofen 600 mg oral tablet [...] Start: 08-24-2023 take 4 tablets by mo wyh every twenty-four hours at bedtime LamoTRIgine 200 [...] by mouth. Take 1 tablet by ramos daily at bedtime. Take 2 tablets by mo [facility] once daily. metoclopramide 10 mg oral tablet [...] Comment on above: Take 1 capsule by [facility] once daily. penicillin v potassium 500 mg oral tablet (8 sources) Start: 03-01-20 take 1 tablet by mouth four times daily penicillin V potassium (V-CILLIN, VEETIDS) 500 mg tablet Take 1 tablet by mouth four times daily. 0 03/01/2019 Active Comment on above: Take 1 tablet by ramos four times daily. Gjzbcmyo-Hb-Aea-Fe-FA tab (8 sources) Start: 10-04-19 19 take 1 tablet by mouth once daily Lrhvtbzc-Zb-Zpe-F e-FA tab Indications: 31 weeks gestation of Take 1 tablet by mouth once daily. 60 tablet 3 10/03/2018 Active Comment on above: Take 1 tablet by ramos once daily. sertraline 25 mg oral tablet (8 sources) Serotonin Reuptake Inhibitor Start: 02-23-20 19 take 1 tablet by mouth once daily sertraline (ZOLOFT) 25 mg tablet Take 1 tablet by mouth once daily. 0 02/22/2019 Active Comment on above: Take 1 tablet by ramos once daily. sulfamethoxazole 800 mg / trimethoprim [...] Comment on above: Take 1 tablet by [facility] twice daily for 5 days. 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, [address] Calcium [Mass/Vol] 9.7 mg/dL Normal 7.6-11.0 [facility] Comment on above: Performed By: #### L 501.5200, L501.2300 #### [facility] [address] [place], [address] Chloride [Moles/Vol] 103 mmol/L Normal 98-108 [facility] Comment on above: Performed By: #### L 501.5200, L501.2300 #### [facility] [address] [place], [address] CO2 [Moles/Vol] 20.5 mmol/L Low 21.0-32.0 [facility] Comment on above: Performed By: #### L 501.5200, L501.2300 #### [facility] [address] [place], [address] Creatinine [Mass/Vol] 0.87 mg/dL Normal 0.70-1.20 [facility] Comment on above: Performed By: #### L 501.5200, L501.2300 #### [facility] [address] [place], [address] ECRCL 114.91 ml/min Normal 50-250 [facility] Comment on above: Performed By: #### L 501.5200, L501.2300 #### [facility] [address] [place], [address] GAP 14 Normal 5-15 [facility] Comment on above: Performed By: #### L 501.5200, L501.2300 #### [facility] [address] [place], [address] GFR/1.73 sq M.predicted among non-blacks MDRD (S/P/Bld) [Vol rate/Area] 90 mL/min/{1.73_m2} Normal >60 [facility] Comment on above: Result Comment: mL/m in/1.73m2 CKD-EPI Creatinine Equation (2020) Performed By: #### L 501.5200, L501.2300 #### [facility] [address] [place], [address] Glucose [Mass/Vol] 88 mg/dL Normal 70-99 [facility] Comment on above: Performed By: #### L 501.5200, L501.2300 #### [facility] [address] [place], [address] Potassium [Moles/Vol] 4.4 mmol/L Normal 3.3-5.1 [facility] Comment on above: Result Comment: Hemo lysis present, Results??could be affected. ?? Performed By: #### L 501.5200, L501.2300 #### [facility] [address] [place], [address] Sodium [Moles/Vol] 137 mmol/L Normal 133-145 [facility] Comment on above: Performed By: #### L 501.5200, L501.2300 #### [facility] [address] [place], [address] Urea nitrogen [Mass/Vol] 7 mg/dL Normal 4-19 [facility] Comment on above: Performed By: #### L 501.5200, L501.2300 #### [facility] [address] [place], [address] Emergency Department Summary on 01-10-2025 Emergency Department Summary [facility] Medical Records Department [address] [place] [address] Emergency Department Summary 01/10/25 MR#: [id number] Acct: [id number] Name: DELON HAJI MILTON Rep #: [id number] : 1990 34 From: Olaf Astudilol MD PCP: Care Physician,No Primary Status:REG ER Location: ED HPI History of Present Illness Chief Complaint: Seizure Detail of Chief Complaint: Generalized tonic-clonic seizure Informant: patient and spouse/S.O. Onset/Context/Timing Onset: Today and Hours Context: Sudden Onset Timing: Intermittent Quality: Generalized tonic-clonic Location: Occurred at work Current Severity: Gone Maximum Severity: Severe Worsened by: Patient discontinued one of her anticonvulsants with the approval of her ne Relieved by: Not applicable Associated Symptoms Associated Symptoms: None other than facial pain. Narrative Narrative: Patient is a 34-year-old woman. She has known seizure disorder. She is seen by a neurologist through the [facility]. She is present on Lamictal. Her other medication was discontinued be cause it was felt to be causing her to have more seizures. Her last seizure prior to today was a week ago. She complains of facial pain due to the fall. She denies headache. Denies double vision, blurred vision loss of vision. She denies inability to open or close her mouth. Denies neck pain. Denies paresthesia, anesthesia or motor weakness upper or lower extremity. 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-term labor History of substance abuse Seizure disorder Home Medications ???Medication ???Instructions ???Recorded ???Last Taken ???Type lamotrigine 200 mg tablet,extended 800 mg PO 1700 11/10/24 11/29/24 History release 24 hr multivitamin (Daily Multi-Vitamin 1 tab PO DAILY 01/10/25 Unknown H istory tablet) Allergy/AdvReac Type Severity Reaction Status Date / Time tomato AdvReac Vomiting Verified 01/10/25 19:39 Family History Father Alcohol abuse Cataract Mother [...] ROS ED Constitutional Constitutional ED: Denies chills, fever(s), subjective or sweats Eyes Eyes: Denies blurry vision or change in vision ENT ENT ED: Reports other Details: Negative dental trauma or epistaxis. Positive bruising left side of face. ; Denies ear pain, rhinorrhea or sore throat Cardiovascular Cardiovascular: Denies chest pain or palpitations Respiratory/Chest Respiratory/Chest: Denies cough, dyspnea or dyspnea on exertion Gastrointestinal Gastrointestinal: Denies abdominal pain, nausea or vomiting Integumentary Reports other Details: Bruise left side of face Neurologic Neurologic: Denies headache(s), paresthesias or weakness Endocrine Endocrinology: Denies cold intolerance or heat intolerance Hematologic/Lymphatic Hematologic/Lymphatic: Reports systems reviewed and no addt'l complaints, except as documented EXAM Physical Exam Const Vital Signs: 01/10/25 19:36 01/10/25 21:36 Temperature 98.1 F 97.8 F Temperature Source Oral Oral Pulse Rate 110 H 83 Respiratory Rate 18 13 Blood Pressure 139/81 H 113/66 Blood Pressure Mean 100 81 Pulse Ox 99 99 Oxygen Delivery Method Room Air Room Air Positive well nourished and well developed Constitutional Narrative: Patient's vitals reveal slight elevation of blood pressure and heart rate. These resolved. General Appearance ED: well developed and NAD; Negative for cyanotic or diaphoretic HEENT Reports moist mucous membranes HEENT Narrative: Patient has bruising over the left maxillary region. There is no evidence of trismus. There is no dental trauma. There is no clinical signs of basilar skull fracture. She has no depression over the zygomatic arch. There is no bruising noted to the skull. Eyes PERRL and EOMs intact bilaterally Eyes Narrative: There is no nystagmus. General Eye ED: Negative for pale conjunctiva or scleral icterus Neck (more content not included)... Normal [facility] 12 Lead EKGon 01-01-2025 12 Lead EKG [facility] [address] [place] [address] 12 Lead EKG 01/01/25 0903 MR#: [id number] Acct: [id number] Name: DELON HAJI Rep #: [id number] : 1990 34 From: Alberto Hummel MD [...] Normal ECG Confirmed by Alberto Hummel ([id number]), food expeditor FILIPPO GUEVARA ([id number]) on 01/02/2025 6:14:23 AM Referred By: YARY Confirmed By: Alberto Hummel 01/02/25 0614 Date Alberto Hummel MD CC: Dr. Edvin Barrett, DO; No Primary Care Physician Signed Normal [facility] Bedside Glucoseon 01-01-2024 FINGERSTICK GLU 99 mg/dL Normal 74-106 [facility] Comment on above: Result Comment: ROBBI ARIAS OF PATIENT CARE PER NURSING PROTOCOL Performed By: #### L 501.080 #### [facility] [address] [place], [address] CBC W/Diff, Automatedon Absolute Neut Normal 2.0-7.7 [facility] Comment on above: Result Comment: ZACH ENT DISCHARGED-NO SPECIMEN REC'D Performed By: #### L 501.5200, L501.2300 #### [facility] [address] [place], [address] HCT Normal 37-47 [facility] Comment on above: Result Comment: ZACH ENT DISCHARGED-NO SPECIMEN REC'D Performed By: #### L 501.5200, L501.2300 #### [facility] [address] [place], [address] HGB Normal 12.0-15.0 [facility] Comment on above: Result Comment: ZACH ENT DISCHARGED-NO SPECIMEN REC'D Performed By: #### L 501.5200, L501.2300 #### [facility] [address] [place], [address] MCH Normal 27.0-32.0 [facility] Comment on above: Result Comment: ZACH ENT DISCHARGED-NO SPECIMEN REC'D Performed By: #### L 501.5200, L501.2300 #### [facility] [address] [place], [address] MCHC Normal 32-36 [facility] Comment on above: Result Comment: ZACH ENT DISCHARGED-NO SPECIMEN REC'D Performed By: #### L 501.5200, L501.2300 #### [facility] [address] [place], [address] MCV Normal 81-99 [facility] Comment on above: Result Comment: ZACH ENT DISCHARGED-NO SPECIMEN REC'D Performed By: #### L 501.5200, L501.2300 #### [facility] [address] [place], [address] NEUT% Normal 47-70 [facility] Comment on above: Result Comment: ZACH ENT DISCHARGED-NO SPECIMEN REC'D Performed By: #### L 501.5200, L501.2300 #### [facility] [address] [place], [address] PLT Normal 150-450 [facility] Comment on above: Result Comment: ZACH ENT DISCHARGED-NO SPECIMEN REC'D Performed By: #### L 501.5200, L501.2300 #### [facility] [address] [place], [address] RBC Normal 4.2-5.4 [facility] Comment on above: Result Comment: ZACH ENT DISCHARGED-NO SPECIMEN REC'D Performed By: #### L 501.5200, L501.2300 #### [facility] [address] [place], [address] RDW CV Normal 11.6-14.6 [facility] Comment on above: Result Comment: ZACH ENT DISCHARGED-NO SPECIMEN REC'D Performed By: #### L 501.5200, L501.2300 #### [facility] [address] [place], [address] RDW SD Normal 35.1-43.9 [facility] Comment on above: Result Comment: ZACH ENT DISCHARGED-NO SPECIMEN REC'D Performed By: #### L 501.5200, L501.2300 #### [facility] [address] [place], [address] WBC Normal 4.4-11.0 [facility] Comment on above: Result Comment: ZACH ENT DISCHARGED-NO SPECIMEN REC'D Performed By: #### L 501.5200, L501.2300 #### [facility] [address] [place], [address] Comprehensive Metabolic Prof henrietta 01-01-2025 ALB Normal 3.5-5.0 [facility] Comment on above: Result Comment: ZACH ENT DISCHARGED-NO SPECIMEN REC'D Performed By: #### L 501.5200, L501.2300 #### [facility] [address] [place], [address] ALK PHOS Normal 35-104 [facility] Comment on above: Result Comment: ZACH ENT DISCHARGED-NO SPECIMEN REC'D Performed By: #### L 501.5200, L501.2300 #### [facility] [address] [place], [address] ALT Normal <=34 [facility] Comment on above: Result Comment: ZACH ENT DISCHARGED-NO SPECIMEN REC'D Performed By: #### L 501.5200, L501.2300 #### [facility] [address] [place], [address] AST Normal <=31 [facility] Comment on above: Result Comment: ZACH ENT DISCHARGED-NO SPECIMEN REC'D Performed By: #### L 501.5200, L501.2300 #### [facility] [address] [place], [address] BUN Normal 4-19 [facility] Comment on above: Result Comment: ZACH ENT DISCHARGED-NO SPECIMEN REC'D Performed By: #### L 501.5200, L501.2300 #### [facility] [address] [place], [address] BUN/CRE Normal 10-20 [facility] Comment on above: Result Comment: ZACH ENT DISCHARGED-NO SPECIMEN REC'D Performed By: #### L 501.5200, L501.2300 #### [facility] [address] [place], [address] Calcium Normal 7.6-11.0 [facility] Comment on above: Result Comment: ZACH ENT DISCHARGED-NO SPECIMEN REC'D Performed By: #### L 501.5200, L501.2300 #### [facility] [address] [place], [address] CL Normal 98-108 [facility] Comment on above: Result Comment: ZACH ENT DISCHARGED-NO SPECIMEN REC'D Performed By: #### L 501.5200, L501.2300 #### [facility] [address] [place], [address] CO2 Normal 21.0-32.0 [facility] Comment on above: Result Comment: ZACH ENT DISCHARGED-NO SPECIMEN REC'D Performed By: #### L 501.5200, L501.2300 #### [facility] [address] [place], [address] CREAT,SERUM Normal 0.70-1.20 [facility] Comment on above: Result Comment: ZACH ENT DISCHARGED-NO SPECIMEN REC'D Performed By: #### L 501.5200, L501.2300 #### [facility] [address] [place], [address] eGFR Normal >60 [facility] Comment on above: Result Comment: ZACH ENT DISCHARGED-NO SPECIMEN REC'D Performed By: #### L 501.5200, L501.2300 #### [facility] [address] [place], [address] GAP Normal 5-15 [facility] Comment on above: Result Comment: ZACH ENT DISCHARGED-NO SPECIMEN REC'D Performed By: #### L 501.5200, L501.2300 #### [facility] [address] [place], [address] GLU Normal 70-99 [facility] Comment on above: Result Comment: ZACH ENT DISCHARGED-NO SPECIMEN REC'D Performed By: #### L 501.5200, L501.2300 #### [facility] [address] [place], [address] Potassium Normal 3.3-5.1 [facility] Comment on above: Result Comment: ZACH ENT DISCHARGED-NO SPECIMEN REC'D Performed By: #### L 501.5200, L501.2300 #### [facility] [address] [place], [address] T BILI Normal 0.00-1.30 [facility] Comment on above: Result Comment: ZACH ENT DISCHARGED-NO SPECIMEN REC'D Performed By: #### L 501.5200, L501.2300 #### [facility] [address] [place], [address] T PROT Normal 5.9-8.4 [facility] Comment on above: Result Comment: ZACH ENT DISCHARGED-NO SPECIMEN REC'D Performed By: #### L 501.5200, L501.2300 #### [facility] [address] [place], [address] Comprehensive Metabolic Profil Normal 133-145 [facility] Comment on above: Result Comment: ZACH ENT DISCHARGED-NO SPECIMEN REC'D Performed By: #### L 501.5200, L501.2300 #### [facility] [address] [place], [address] Emergency Department Summary on 01-01-2025 Emergency Department Summary [facility] Records Department [address] [place] [address] Emergency Department Summary 01/01/25 MR#: [id number] Acct: [id number] Name: DELON HAJI MILTON Rep #: [id number] : 1990 34 From: Edvin Barrett DO [...] put on Clobazam by her neurologist in [place] however they are currently weaning this off [...] intact, sensation intact Psych: Cooperative, flat affect [facility] Medical History IUD (intrauterine device) in place [...] level a (more content not included)... Normal [facility] Urine Drug Screen (VISTA)on 01-01-2025 AMPHETAMINES Normal <1000 ng/mL [facility] Comment on above: Result Comment: ZACH ENT DISCHARGED-NO SPECIMEN REC'D Performed By: #### L 501.5200, L501.2300 #### [facility] [address] [place], [address] BARBITIURATES Normal < 200 ng/mL [facility] Comment on above: Result Comment: ZACH ENT DISCHARGED-NO SPECIMEN REC'D Performed By: #### L 501.5200, L501.2300 #### [facility] [address] [facility] [address] BENZODIAZIPINE Normal < 200 ng/mL [facility] Comment on above: Result Comment: ZACH ENT DISCHARGED-NO SPECIMEN REC'D Performed By: #### L 501.5200, L501.2300 #### [facility] [address] [facility] [address] BUP Ur Drug Scr Normal < 200 ng/mL [facility] Comment on above: Result Comment: ZACH ENT DISCHARGED-NO SPECIMEN REC'D Performed By: #### L 501.5200, L501.2300 #### [facility] [address] [place], [address] COCAINE Normal < 300 ng/mL [facility] Comment on above: Result Comment: ZACH ENT DISCHARGED-NO SPECIMEN REC'D Performed By: #### L 501.5200, L501.2300 #### [facility] [address] [place], [address] Fentanyl Normal [facility] Comment on above: Result Comment: ZACH ENT DISCHARGED-NO SPECIMEN REC'D Performed By: #### L 501.5200, L501.2300 #### [facility] [address] [place], [address] METHADONE Normal < 300 ng/mL [facility] Comment on above: Result Comment: ZACH ENT DISCHARGED-NO SPECIMEN REC'D Performed By: #### L 501.5200, L501.2300 #### [facility] [address] [place], [address] OPIATES Normal < 300 ng/mL [facility] Comment on above: Result Comment: ZACH ENT DISCHARGED-NO SPECIMEN REC'D Performed By: #### L 501.5200, L501.2300 #### [facility] [address] [place], [address] OXYCODONE Normal < 100 ng/mL [facility] Comment on above: Result Comment: ZACH ENT DISCHARGED-NO SPECIMEN REC'D Performed By: #### L 501.5200, L501.2300 #### [facility] [address] [place], [address] PCP Normal < 25 ng/mL [facility] Comment on above: Result Comment: ZACH ENT DISCHARGED-NO SPECIMEN REC'D Performed By: #### L 501.5200, L501.2300 #### [facility] [address] [place], [address] THC Normal < 50 ng/mL [facility] Comment on above: Result Comment: ZACH ENT DISCHARGED-NO SPECIMEN REC'D Performed By: #### L 501.5200, L501.2300 #### [facility] [address] [place], [address] Lamotrigine (Lamictal) Level on 12-04-2024 LAMOTRIGINE 9.0 ug/mL Normal 2.0-20.0 [facility] Comment on above: Result Comment: Dete ction Limit = 1.0 Performed at: [address] [id number] [employer] Tender: Jyoti Dailey MD, Phone: [phone] Performed By: #### L 400.0001 #### [facility] [address] [place], [address] Alcohol, Blood (Medical)-Ser on 11-30-2024 SERUM ETOH < 10.1 Normal <=10.0 [facility] Comment on above: Result Comment: This test is for medical purposes only. The legal definition of intoxication varies according to local law. Performed By: #### L 501.5200, L501.2300 #### [facility] [address] [place], [address] CBC W/Diff, Automatedon 05- Absolute Lymph 2.72 X10 3/uL Normal 0.83-4.51 [facility] Comment on above: Performed By: #### L 400.0001 #### [facility] [address] [place], [address] Absolute Neut 7.4 X10 3/uL Normal 2.0-7.7 [facility] Comment on above: Performed By: #### L 400.0001 #### [facility] [address] [place], [address] Basophils/100 WBC (Bld) 0.4 % Normal 0-1 [facility] Comment on above: Performed By: #### L 400.0001 #### [facility] [address] [place], [address] Eosinophils/100 WBC (Bld) 2.9 % Normal 0-5 [facility] Comment on above: Performed By: #### L 400.0001 #### [facility] [address] [place], [address] Erythrocyte distribution width (RBC) [Ratio] 12.0 % Normal 11.6-14.6 [facility] Comment on above: Performed By: #### L 400.0001 #### [facility] [address] [place], [address] Hematocrit (Bld) [Volume fraction] 41.8 % Normal 37-47 [facility] Comment on above: Performed By: #### L 400.0001 #### [facility] [address] [place], [address] Hemoglobin (Bld) [Mass/Vol] 14.6 g/dL Normal 12.0-15.0 [facility] Comment on above: Performed By: #### L 400.0001 #### [facility] [address] [place], [address] IG% 0.200 Normal 0.0-0.9 [facility] Comment on above: Result Comment: IG% - Immature Granulocytes (promyelocytes, myelocytes and metamyelocytes) > 1% indicates that a LEFT SHIFT is Present. Performed By: #### L 400.0001 #### [facility] [address] [place], [address] Lymphocytes/100 WBC (Bld) 24.0 % Normal 19-41 [facility] Comment on above: Performed By: #### L 400.0001 #### [facility] [address] [place], [address] MCH (RBC) [Entitic mass] 33.5 pg High 27.0-32.0 [facility] Comment on above: Performed By: #### L 400.0001 #### [facility] [address] [place], [address] MCHC (RBC) [Mass/Vol] 34.9 g/dL Normal 32-36 [facility] Comment on above: Performed By: #### L 400.0001 #### [facility] [address] [place], [address] MCV (RBC) [Entitic vol] 95.9 fL Normal 81-99 [facility] Comment on above: Performed By: #### L 400.0001 #### [facility] [address] [place], [address] Monocytes/100 WBC (Bld) 7.3 % Normal 0-10 [facility] Comment on above: Performed By: #### L 400.0001 #### [facility] [address] [place], [address] Neutrophils/100 WBC (Bld) 65.2 % Normal 47-70 [facility] Comment on above: Performed By: #### L 400.0001 #### [facility] [address] [place], [address] Nucleated RBC (Bld) [#/Vol] 0 10*3/uL Normal 0-5 [facility] Comment on above: Performed By: #### L 400.0001 #### [facility] [address] [place], [address] Platelet mean volume (Bld) [Entitic vol] 9.1 fL Normal 6.2-12.0 [facility] Comment on above: Performed By: #### L 400.0001 #### [facility] [address] [place], [address] Platelets (Bld) [#/Vol] 287 10*3/uL Normal 150-450 [facility] Comment on above: Performed By: #### L 400.0001 #### [facility] [address] [place], [address] RBC (Bld) [#/Vol] 4.36 10*6/uL Normal 4.2-5.4 [facility] Comment on above: Performed By: #### L 400.0001 #### [facility] [address] [place], [address] RDW SD 42.5 fl Normal 35.1-43.9 [facility] Comment on above: Performed By: #### L 400.0001 #### [facility] [address] [place], [address] WBC (Bld) [#/Vol] 11.3 10*3/uL High 4.4-11.0 [facility] Comment on above: Performed By: #### L 400.0001 #### [facility] [address] [place], [address] Comprehensive Metabolic Prof ilon 11-30-2024 Albumin [Mass/Vol] 4.5 g/dL Normal 3.5-5.0 [facility] Comment on above: Performed By: #### L 400.0001 #### [facility] [address] [place], [address] Albumin/Globulin [Mass ratio] 1.7 {ratio} Normal 0.9-2.4 [facility] Comment on above: Performed By: #### L 400.0001 #### [facility] [address] [place], [address] ALK PHOS 75 U/L Normal 35-104 [facility] Comment on above: Performed By: #### L 400.0001 #### [facility] [address] [place], [address] ALT [Catalytic activity/Vol] 17 U/L Normal <=34 [facility] Comment on above: Performed By: #### L 400.0001 #### [facility] [address] [place], [address] AST [Catalytic activity/Vol] 17 U/L Normal <=31 [facility] Comment on above: Performed By: #### L 400.0001 #### [facility] [address] [place], [address] Bilirubin [Mass/Vol] 0.35 mg/dL Normal 0.00-1.30 [facility] Comment on above: Performed By: #### L 400.0001 #### [facility] [address] [place], [address] BUN/CRE 13.9 RATIO Normal 10-20 [facility] Comment on above: Performed By: #### L 400.0001 #### [facility] [address] [place], [address] Calcium [Mass/Vol] 9.4 mg/dL Normal 7.6-11.0 [facility] Comment on above: Performed By: #### L 400.0001 #### [facility] [address] [place], [address] Chloride [Moles/Vol] 104 mmol/L Normal 98-108 [facility] Comment on above: Performed By: #### L 400.0001 #### [facility] [address] [place], [address] CO2 [Moles/Vol] 24.6 mmol/L Normal 21.0-32.0 [facility] Comment on above: Performed By: #### L 400.0001 #### [facility] [address] [place], [address] Creatinine [Mass/Vol] 0.72 mg/dL Normal 0.70-1.20 [facility] Comment on above: Performed By: #### L 400.0001 #### [facility] [address] [place], [address] ECRCL 139.36 ml/min Normal 50-250 [facility] Comment on above: Performed By: #### L 400.0001 #### [facility] [address] [place], [address] GAP 10 Normal 5-15 [facility] Comment on above: Performed By: #### L 400.0001 #### [facility] [address] [place], [address] GFR/1.73 sq M.predicted among non-blacks MDRD (S/P/Bld) [Vol rate/Area] 112 mL/min/{1.73_m2} Normal >60 [facility] Comment on above: Result Comment: mL/m in/1.73m2 CKD-EPI Creatinine Equation (2020) Performed By: #### L 400.0001 #### [facility] [address] [place], [address] Globulin (S) [Mass/Vol] 2.6 g/dL Normal 2.2-4.2 [facility] Comment on above: Performed By: #### L 400.0001 #### [facility] [address] [place], [address] Glucose [Mass/Vol] 92 mg/dL Normal 70-99 [facility] Comment on above: Performed By: #### L 400.0001 #### [facility] [address] [place], [address] Potassium [Moles/Vol] 3.7 mmol/L Normal 3.3-5.1 [facility] Comment on above: Performed By: #### L 400.0001 #### [facility] [address] [place], [address] Sodium [Moles/Vol] 139 mmol/L Normal 133-145 [facility] Comment on above: Performed By: #### L 400.0001 #### [facility] [address] [place], [address] T PROT 7.1 g/dL Normal 5.9-8.4 [facility] Comment on above: Performed By: #### L 400.0001 #### [facility] [address] [place], [address] Urea nitrogen [Mass/Vol] 10 mg/dL Normal 4-19 [facility] Comment on above: Performed By: #### L 400.0001 #### [facility] [address] [place], [address] Emergency Department Summary on 11-30-2024 Emergency Department Summary [facility] Medical Records Department [address] [place] [address] Emergency Department Summary 11/30/24 MR#: [id number] Acct: [id number] Name: DELON HAJI MILTON Rep #: [id number] : 1990 34 From: Maurisio Richards DO [...] Patient states that she saw neurology in [place] in October of this year. She states [...] significant other wanted her to be evaluated. [facility] Medical History IUD (intrauterine device) in place [...] depressed o (more content not included)... Normal [facility] ,Serum,hCG Quali.on 11-30-2024 HCG, SERUM QUAL Negative Normal [facility] Comment on above: Performed By: #### L 400.0001 #### [facility] [address] [place], [address] Urinalysis, Completeon 11-30 EPI,SQUAMOUS 0-5 SEEN Normal 5-10 [facility] Comment on above: Order Comment: CLEAN CATCH Performed By: #### L 400.0001 #### [facility] [address] [place], [address] RBC 0-5 SEEN Normal 0-5 [facility] Comment on above: Order Comment: CLEAN CATCH Performed By: #### L 400.0001 #### [facility] [address] [place], [address] WBC 0-5 SEEN Normal 0-5 [facility] Comment on above: Order Comment: CLEAN CATCH Performed By: #### L 400.0001 #### [facility] [address] [place], [address] BACTERIA 0 SEEN Normal None Seen [facility] Comment on above: Order Comment: CLEAN CATCH Performed By: #### L 400.0001 #### [facility] [address] [place], [address] Mucus Ql (Urine sed) 0 SEEN Normal [facility] Comment on above: Order Comment: CLEAN CATCH Performed By: #### L 400.0001 #### [facility] [address] [facility] [address] Urine Drug Screen (VISTA)on 11-30-2024 AMPHETAMINES Negative Normal <1000 ng/mL [facility] Comment on above: Performed By: #### L 501.5200, L501.2300 #### [facility] [address] [place], [address] BARBITIURATES Negative Normal < 200 ng/mL [facility] Comment on above: Performed By: #### L 501.5200, L501.2300 #### [facility] [address] [place], [address] BENZODIAZIPINE Positive Normal < 200 ng/mL [facility] Comment on above: Result Comment: If c onfirmation testing is needed, a separate order will be required to send out testing to the reference laboratory. Performed By: #### L 501.5200, L501.2300 #### [facility] [address] [place], [address] BUP Ur Drug Scr Negative Normal < 200 ng/mL [facility] Comment on above: Performed By: #### L 501.5200, L501.2300 #### [facility] [address] [place], [address] COCAINE Negative Normal < 300 ng/mL [facility] Comment on above: Performed By: #### L 501.5200, L501.2300 #### [facility] [address] [place], [address] Fentanyl Negative Normal [facility] Comment on above: Performed By: #### L 501.5200, L501.2300 #### [facility] [address] [place], [address] METHADONE Negative Normal < 300 ng/mL [facility] Comment on above: Performed By: #### L 501.5200, L501.2300 #### [facility] [address] [place], [address] OPIATES Negative Normal < 300 ng/mL [facility] Comment on above: Performed By: #### L 501.5200, L501.2300 #### [facility] [address] [place], [address] OXYCODONE Negative Normal < 100 ng/mL [facility] Comment on above: Performed By: #### L 501.5200, L501.2300 #### [facility] [address] [place], [address] PCP Positive Normal < 25 ng/mL [facility] Comment on above: Result Comment: If c onfirmation testing is needed, a separate order will be required to send out testing to the reference laboratory. Performed By: #### L 501.5200, L501.2300 #### [facility] [address] [place], [address] THC Negative Normal < 50 ng/mL [facility] Comment on above: Performed By: #### L 501.5200, L501.2300 #### [facility] [address] [place], [address] Alcohol, Blood (Medical)-Ser on 11-10-2024 SERUM ETOH < 10.1 Normal <=10.0 [facility] Comment on above: Result Comment: This test is for medical purposes only. The legal definition of intoxication varies according to local law. Performed By: #### L 505.5000, L100.0100, L500.4050, L700.6800, L501.2450, L501.9100 #### [facility] [address] [place], [address] CBC W/Diff, Automatedon - Absolute Lymph 2.96 X10 3/uL Normal 0.83-4.51 [facility] Comment on above: Performed By: #### L 505.5000, L100.0100, L500.4050, L700.6800, L501.2450, L501.9100 #### [facility] [address] [place], [address] Absolute Neut 6.2 X10 3/uL Normal 2.0-7.7 [facility] Comment on above: Performed By: #### L 505.5000, L100.0100, L500.4050, L700.6800, L501.2450, L501.9100 #### [facility] [address] [place], [address] Basophils/100 WBC (Bld) 1.0 % Normal 0-1 [facility] Comment on above: Performed By: #### L 505.5000, L100.0100, L500.4050, L700.6800, L501.2450, L501.9100 #### [facility] [address] [place], [address] Eosinophils/100 WBC (Bld) 2.4 % Normal 0-5 [facility] Comment on above: Performed By: #### L 505.5000, L100.0100, L500.4050, L700.6800, L501.2450, L501.9100 #### [facility] [address] [place], [address] Erythrocyte distribution width (RBC) [Ratio] 12.6 % Normal 11.6-14.6 [facility] Comment on above: Performed By: #### L 505.5000, L100.0100, L500.4050, L700.6800, L501.2450, L501.9100 #### [facility] [address] [place], [address] Hematocrit (Bld) [Volume fraction] 40.4 % Normal 37-47 [facility] Comment on above: Performed By: #### L 505.5000, L100.0100, L500.4050, L700.6800, L501.2450, L501.9100 #### [facility] [address] [place], [address] Hemoglobin (Bld) [Mass/Vol] 14.2 g/dL Normal 12.0-15.0 [facility] Comment on above: Performed By: #### L 505.5000, L100.0100, L500.4050, L700.6800, L501.2450, L501.9100 #### [facility] [address] [place], [address] IG% 0.400 Normal 0.0-0.9 [facility] Comment on above: Result Comment: IG% - Immature Granulocytes (promyelocytes, myelocytes and metamyelocytes) > 1% indicates that a LEFT SHIFT is Present. Performed By: #### L 505.5000, L100.0100, L500.4050, L700.6800, L501.2450, L501.9100 #### [facility] [address] [place], [address] Lymphocytes/100 WBC (Bld) 29.1 % Normal 19-41 [facility] Comment on above: Performed By: #### L 505.5000, L100.0100, L500.4050, L700.6800, L501.2450, L501.9100 #### [facility] [address] [place], [address] MCH (RBC) [Entitic mass] 33.3 pg High 27.0-32.0 [facility] Comment on above: Performed By: #### L 505.5000, L100.0100, L500.4050, L700.6800, L501.2450, L501.9100 #### [facility] [address] [place], [address] MCHC (RBC) [Mass/Vol] 35.1 g/dL Normal 32-36 [facility] Comment on above: Performed By: #### L 505.5000, L100.0100, L500.4050, L700.6800, L501.2450, L501.9100 #### [facility] [address] [place], [address] MCV (RBC) [Entitic vol] 94.8 fL Normal 81-99 [facility] Comment on above: Performed By: #### L 505.5000, L100.0100, L500.4050, L700.6800, L501.2450, L501.9100 #### [facility] [address] [place], [address] Monocytes/100 WBC (Bld) 6.5 % Normal 0-10 [facility] Comment on above: Performed By: #### L 505.5000, L100.0100, L500.4050, L700.6800, L501.2450, L501.9100 #### [facility] [address] [place], [address] Neutrophils/100 WBC (Bld) 60.6 % Normal 47-70 [facility] Comment on above: Performed By: #### L 505.5000, L100.0100, L500.4050, L700.6800, L501.2450, L501.9100 #### [facility] [address] [place], [address] Nucleated RBC (Bld) [#/Vol] 0 10*3/uL Normal 0-5 [facility] Comment on above: Performed By: #### L 505.5000, L100.0100, L500.4050, L700.6800, L501.2450, L501.9100 #### [facility] [address] [place], [address] Platelet mean volume (Bld) [Entitic vol] 8.8 fL Normal 6.2-12.0 [facility] Comment on above: Performed By: #### L 505.5000, L100.0100, L500.4050, L700.6800, L501.2450, L501.9100 #### [facility] [address] [place], [address] Platelets (Bld) [#/Vol] 287 10*3/uL Normal 150-450 [facility] Comment on above: Performed By: #### L 505.5000, L100.0100, L500.4050, L700.6800, L501.2450, L501.9100 #### [facility] [address] [place], [address] RBC (Bld) [#/Vol] 4.26 10*6/uL Normal 4.2-5.4 [facility] Comment on above: Performed By: #### L 505.5000, L100.0100, L500.4050, L700.6800, L501.2450, L501.9100 #### [facility] [address] [place], [address] RDW SD 43.9 fl Normal 35.1-43.9 [facility] Comment on above: Performed By: #### L 505.5000, L100.0100, L500.4050, L700.6800, L501.2450, L501.9100 #### [facility] [address] [place], [address] WBC (Bld) [#/Vol] 10.2 10*3/uL Normal 4.4-11.0 [facility] Comment on above: Performed By: #### L 505.5000, L100.0100, L500.4050, L700.6800, L501.2450, L501.9100 #### [facility] [address] [place], [address] Comprehensive Metabolic Prof [facility] 11-10-2024 Albumin [Mass/Vol] 4.5 g/dL Normal 3.5-5.0 [facility] Comment on above: Performed By: #### L 505.5000, L100.0100, L500.4050, L700.6800, L501.2450, L501.9100 #### [facility] [address] [place], [address] Albumin/Globulin [Mass ratio] 1.8 {ratio} Normal 0.9-2.4 [facility] Comment on above: Performed By: #### L 505.5000, L100.0100, L500.4050, L700.6800, L501.2450, L501.9100 #### [facility] [address] [place], [address] ALK PHOS 84 U/L Normal 35-104 [facility] Comment on above: Performed By: #### L 505.5000, L100.0100, L500.4050, L700.6800, L501.2450, L501.9100 #### [facility] [address] [place], [address] ALT [Catalytic activity/Vol] 23 U/L Normal <=34 [facility] Comment on above: Performed By: #### L 505.5000, L100.0100, L500.4050, L700.6800, L501.2450, L501.9100 #### [facility] [address] [place], [address] AST [Catalytic activity/Vol] 24 U/L Normal <=31 [facility] Comment on above: Performed By: #### L 505.5000, L100.0100, L500.4050, L700.6800, L501.2450, L501.9100 #### [facility] [address] [place], [address] Bilirubin [Mass/Vol] 0.53 mg/dL Normal 0.00-1.30 [facility] Comment on above: Performed By: #### L 505.5000, L100.0100, L500.4050, L700.6800, L501.2450, L501.9100 #### [facility] [address] [place], [address] BUN/CRE 13.4 RATIO Normal 10-20 [facility] Comment on above: Performed By: #### L 505.5000, L100.0100, L500.4050, L700.6800, L501.2450, L501.9100 #### [facility] [address] [place], [address] Calcium [Mass/Vol] 9.3 mg/dL Normal 7.6-11.0 [facility] Comment on above: Performed By: #### L 505.5000, L100.0100, L500.4050, L700.6800, L501.2450, L501.9100 #### [facility] [facility] [address] [place], [address] Chloride [Moles/Vol] 104 mmol/L Normal 98-108 [facility] Comment on above: Performed By: #### L 505.5000, L100.0100, L500.4050, L700.6800, L501.2450, L501.9100 #### [facility] [address] [place], [address] CO2 [Moles/Vol] 22.6 mmol/L Normal 21.0-32.0 [facility] Comment on above: Performed By: #### L 505.5000, L100.0100, L500.4050, L700.6800, L501.2450, L501.9100 #### [facility] [address] [place], [address] Creatinine [Mass/Vol] 0.80 mg/dL Normal 0.70-1.20 [facility] Comment on above: Performed By: #### L 505.5000, L100.0100, L500.4050, L700.6800, L501.2450, L501.9100 #### [facility] [address] [place], [address] ECRCL 126.84 ml/min Normal 50-250 [facility] Comment on above: Performed By: #### L 505.5000, L100.0100, L500.4050, L700.6800, L501.2450, L501.9100 #### [facility] [address] [place], [address] GAP 10 Normal 5-15 [facility] Comment on above: Performed By: #### L 505.5000, L100.0100, L500.4050, L700.6800, L501.2450, L501.9100 #### [facility] [address] [place], [address] GFR/1.73 sq M.predicted among non-blacks MDRD (S/P/Bld) [Vol rate/Area] 99 mL/min/{1.73_m2} Normal >60 [facility] Comment on above: Result Comment: mL/m in/1.73m2 CKD-EPI Creatinine Equation (2020) Performed By: #### L 505.5000, L100.0100, L500.4050, L700.6800, L501.2450, L501.9100 #### [facility] [address] [place], [address] Globulin (S) [Mass/Vol] 2.4 g/dL Normal 2.2-4.2 [facility] Comment on above: Performed By: #### L 505.5000, L100.0100, L500.4050, L700.6800, L501.2450, L501.9100 #### [facility] [address] [place], [address] Glucose [Mass/Vol] 91 mg/dL Normal 70-99 [facility] Comment on above: Performed By: #### L 505.5000, L100.0100, L500.4050, L700.6800, L501.2450, L501.9100 #### [facility] [address] [place], [address] Potassium [Moles/Vol] 4.0 mmol/L Normal 3.3-5.1 [facility] Comment on above: Performed By: #### L 505.5000, L100.0100, L500.4050, L700.6800, L501.2450, L501.9100 #### [facility] [address] [place], [address] Sodium [Moles/Vol] 136 mmol/L Normal 133-145 [facility] Comment on above: Performed By: #### L 505.5000, L100.0100, L500.4050, L700.6800, L501.2450, L501.9100 #### [facility] [address] [place], [address] T PROT 6.9 g/dL Normal 5.9-8.4 [facility] Comment on above: Performed By: #### L 505.5000, L100.0100, L500.4050, L700.6800, L501.2450, L501.9100 #### [facility] [address] [place], [address] Urea nitrogen [Mass/Vol] 11 mg/dL Normal 4-19 [facility] Comment on above: Performed By: #### L 505.5000, L100.0100, L500.4050, L700.6800, L501.2450, L501.9100 #### [facility] [address] [place], [address] Emergency Department Summary on 11-10-2024 Emergency Department Summary [facility] Medical Records Department [address] [place] [address] Emergency Department Summary 11/10/24 MR#: [id number] Acct: [id number] Name: ADITHYAJAZDELON MILTON Rep #: [id number] : 1990 34 From: Jignesh Fuentes DO PCP: Care Physician,No Primary Status:ADM IN Location: MS3 [id number] HPI History of Present Illness Chief Complaint: Substance [...] diarrhea. Patient denies any fevers or chills. PFSH PFS Medical History IUD (intrauterine device) in place [...] intact bilaterally and no sensory deficits noted Khalida Coma Scale: document GCS findings Spontaneous Obeys [...] for substan (more content not included)... Normal [facility] H AND P Exam - [facility] 11-10-2024 H&P Exam - Hospitalist [facility] Medical Records Department [address] [place] [address] H P Exam - Hospitalist 11/10/24 1443 MR#: [id number] Acct: [id number] Name: DELON HAJI Rep #: [id number] : 1990 34 From: Caro Chavez MD [...] 16 years old who presents to the [facility] on 11/10/24 w/ last EtOH intake at [...] alcohol level upon requested evaluation of patient. [facility] Medical History IUD (intrauterine device) in place [...] ecchymoses, abr (more content not included)... Normal [facility] Lipaseon 11-10-2024 Lipase [Catalytic activity/Vol] 24 U/L Normal 13-75 [facility] Comment on above: Result Comment: Tamir talamantes note: LIPASE revised reference range effective 22. New Lipase methodology. Expected to produce lower values than the previous assay method. NEW Reference Range: 13 - 75 U/L Performed By: #### L 505.5000, L100.0100, L500.4050, L700.6800, L501.2450, L501.9100 #### [facility] [address] [place], [address] Magnesiumon 11-10-2024 Magnesium [Mass/Vol] 2.2 mg/dL Normal 1.5-2.2 [facility] Comment on above: Order Comment: Comme nts: May add to ED labs Comments: may add to ED labs Performed By: #### L 501.5200, L501.2300 #### [facility] [address] [place], [address] Phosphoruson 11-10-2024 Phosphate [Mass/Vol] 2.2 mg/dL Low 2.7-4.5 [facility] Comment on above: Order Comment: Comme nts: May add to ED labs Comments: may add to ED labs Performed By: #### L 501.5200, L501.2300 #### [facility] [address] [place], [address] ,Serum,hCG Quali.on 11-10-2024 HCG, SERUM QUAL Negative Normal [facility] Comment on above: Performed By: #### L 505.5000, L100.0100, L500.4050, L700.6800, L501.2450, L501.9100 #### [facility] [address] [place], [address] Urine Drug Screen (VISTA)on 11-10-2024 AMPHETAMINES Negative Normal <1000 ng/mL [facility] Comment on above: Performed By: #### L 505.5000, L100.0100, L500.4050, L700.6800, L501.2450, L501.9100 #### [facility] [address] [place], [address] BARBITIURATES Negative Normal < 200 ng/mL [facility] Comment on above: Performed By: #### L 505.5000, L100.0100, L500.4050, L700.6800, L501.2450, L501.9100 #### [facility] [address] [place], [address] BENZODIAZIPINE Positive Normal < 200 ng/mL [facility] Comment on above: Result Comment: If c onfirmation testing is needed, a separate order will be required to send out testing to the reference laboratory. Performed By: #### L 505.5000, L100.0100, L500.4050, L700.6800, L501.2450, L501.9100 #### [facility] [address] [place], [address] BUP Ur Drug Scr Negative Normal < 200 ng/mL [facility] Comment on above: Performed By: #### L 505.5000, L100.0100, L500.4050, L700.6800, L501.2450, L501.9100 #### [facility] [address] [place], [place], [address] COCAINE Negative Normal < 300 ng/mL [facility] Comment on above: Performed By: #### L 505.5000, L100.0100, L500.4050, L700.6800, L501.2450, L501.9100 #### [facility] [address] [place], [address] Fentanyl Negative Normal [facility] Comment on above: Performed By: #### L 505.5000, L100.0100, L500.4050, L700.6800, L501.2450, L501.9100 #### [facility] [address] [place], [place], [facility] METHADONE Negative Normal < 300 ng/mL [facility] Comment on above: Performed By: #### L 505.5000, L100.0100, L500.4050, L700.6800, L501.2450, L501.9100 #### [facility] [place], [facility] OPIATES Negative Normal < 300 ng/mL [facility] Comment on above: Performed By: #### L 505.5000, L100.0100, L500.4050, L700.6800, L501.2450, L501.9100 #### [facility] [address] [place], [facility] OXYCODONE Negative Normal < 100 ng/mL [facility] Comment on above: Performed By: #### L 505.5000, L100.0100, L500.4050, L700.6800, L501.2450, L501.9100 #### [facility] [address] [place], [facility] PCP Negative Normal < 25 ng/mL [facility] Comment on above: Performed By: #### L 505.5000, L100.0100, L500.4050, L700.6800, L501.2450, L501.9100 #### [facility] [address] [place], [facility] THC Negative Normal < 50 ng/mL [facility] Comment on above: Performed By: #### L 505.5000, L100.0100, L500.4050, L700.6800, L501.2450, L501.9100 #### [facility] [address] [place], [address] XR FINGER THUMB 3 VIEWS LEFT on [...] Date: 03/18/2024 4:09:39 PM Ordering Provider: JENA Saldana [facility] ([place]) XR FINGER THUMB 3 VIEWS LEFT on [...] Date: 02/25/2024 6:46:27 PM Ordering Provider: CARMEN Saldana [facility] ([place]) Emergency Department Summary on 02-23-2024 Emergency Department Summary [facility] Medical Records Department [address] [place] [address] Emergency Department Summary 02/23/24 MR#: [id number] Acct: [id number] Name: DELON HAJI Rep #: [id number] : 1990 33 From: Bradley Leach DO [...] anywhere else Chief Complaint: Upper Extremity Injury [facility] Medical History Vaginal delivery History of pre-term [...] former substance user Date of last use: 2010 , opiates, painkillers and methamphetamine what type [...] follow commands knew that she was at [facility] year is 2023 Skin: Warm, dry, intact [...] encouraged to ice and use ibuprofen Tylenol acbo-sor-pojnwgf for pain control. She is agreeable this [...] use ibuprofen/ (more content not included)... Normal [facility] Hand Min 3 Viewson 4 Hand Min 3 Views [facility] Services [address] [place] [address] Hand Min 3 Views MR#: [id number] Acct: [id number] Name: DELON HAJI MILTON Rep #: [id number] : 1990 F 33 From: Jaime owen MD PCP: Care Physician,No Primary Status: REG ER Study: Hand Min 3 Views Date of Exam: 02/23/24 Exam# [id number] Ordering Dr: Bradley Leach DO [id number] STUDY: X-RAY - LEFT HAND REASON FOR [...] at 14:46 EDT , CC: Dr. Bradley Leach DO; No Primary Care Physician Facing Slitter: Signed Normal [facility] Bacteria Wnd Culton 01-06-20 24 Bacteria [...] , Intermediate >4 , Resistant >8 Abnormal [facility] Comment on above: Performed By: #### 6 462-6 ####[facility] LABCLIA [id number] [facility] [id number] [place] [address] [facility] CNOVon 11-12-2023 CNOV Office Visit (UCWSTR ) DELON HAJI ([id number]) 1990 F Date Time Provider Department 11/12/23 11:00 AM [facility] During your visit today, we recorded the [...] to this plan. She will go to [place] [facility]. Allergies As of Date: 11/12/2023 Noted [...] 1 capsule by mouth once daily. - Mvmodxjk-Lx-Pxh-Fe-FA tab Take 1 tablet by mouth once [...] antepartum [O99.3*01/14/2017 12/13/2018 History of macrosomia in infant in prior pregna*01/14/2017 12/13/2018 History of epilepsy [Z86.69] 01/14/2017 05/19/2018 Patient requested diagnostic testing [Z01.89] 01/14/2017 05/19/2018 Chlamydia infection affecting [O98.81*01/19/2017 05/19/2018 History of chlamydia [Z86.19] 05/19/2018 Dichorionic diamniotic twin , antepart*05/19/2018 12/13/2018 IUGR (intrauterine growth restriction) affectin*09/19/2018 12/13/2018 Encounter Status:Closed by JAYLYN CHARLTON on 11/12/23 [facility] CNCOon 09-28-2023 CNCO Letter Text [facility] CNPNon 09-28-2023 CNPN Telephone ([employer] EndeavorWS) DELON HAJI ([id number]) 1990 F Date Time Provider Department 09/28/23 [...] that she does not have access to [facility] mychart. Letter printed and placed at front sight attacher for pickup tomorrow per patient request. Rayna Tanner RN Allergies As of Date: 09/28/2023 Noted Allergy Reaction KEFLEX (CEPHALEXIN) 09/27/2023 8 - GI Upset TOMATO 04/02/2022 8 - GI Upset Date Reviewed: 09/27/2023 Reviewed by: Giuliana Bird RN - Fully Assessed Reason for Visit: Patient Question [9727] Prescriptions as of 09/28/2023 - lamoTRIgine ER [...] 1 capsule by mouth once daily. - Gcszlovn-Qy-Adn-Fe-FA tab Take 1 tablet by mouth once [...] antepartum [O99.3*01/14/2017 12/13/2018 History of macrosomia in infant in prior pregna*01/14/2017 12/13/2018 History of epilepsy [Z86.69] 01/14/2017 05/19/2018 Patient requested diagnostic testing [Z01.89] 01/14/2017 05/19/2018 Chlamydia infection affecting [O98.81*01/19/2017 05/19/2018 History of chlamydia [Z86.19] 05/19/2018 Dichorionic diamniotic twin , antepart*05/19/2018 12/13/2018 IUGR (intrauterine growth restriction) affectin*09/19/2018 12/13/2018 Encounter Status:Closed by RAYNA TANNER on 09/28/23 [facility] CNOVon 09-27-2023 CNOV Office Visit (ORTHWS ) DELON HAJI ([id number]) 1990 F Date Time Provider Department 09/27/23 [...] PA-C Department of Orthopaedics Orthopaedics [address] [facility] [address] Dept: [phone] Dept September 27, 2023 CHIEF COMPLAINT: New [...] the most painful for her. This is [facility]. ASSESSMENT: S62.075N Closed fracture of tuft of distal phalanx [...] tuft of the LEFT 3rd distal phalanx. Facing Slitter: DARREN Transcribe Date/Time: Sep 22 2023 11:32A [...] not gloria (more content not included)... Normal [facility] CNOVon 09-24-2023 CN Office Visit (FRWS ) DELON HAJI ([id number]) 1990 F Date Time Provider Department 09/24/23 11:00 AM VIET ESPARZARADHA During your visit today, we recorded the following information about you: Viet Esparza V, DO 09/27/2023 8:56 AM Signed opened in error- Viet Esparza V, DO 09/27/2023 8:56 AM Signed opened in error no charge, visit rescheduled. Referring Provider: MEG ORTEZ [[id number]] Allergies As of Date: 09/24/2023 Noted Allergy Reaction TOMATO 04/02/2022 8 - GI Upset Date Reviewed: 09/22/2023 Reviewed by: Carmen Brush - Fully Assessed Reason for Visit: Left middle finger injury REF: Alban Ortez x-ray: 09/22/2023 [Other] Visit Diagnoses:Injury of finger of left hand, initial encounter [S69.92XA] Closed fracture of tuft of distal phalanx of finger [S62.639A] Order(s):CONSULT TO ORTHOPAEDICS [9026] Order #: [id number]: 1 Prescriptions as of 09/27/2023 - cephALEXin [...] 1 capsule by mouth once daily. - Gzhmqjue-Yu-Ezy-Fe-FA tab Take 1 tablet by mouth once [...] Status:Closed by VIET ESPARZA V on 09/27/23 Normal [facility] CNOVon 09-22-2023 CNOV Office Visit (UCWSTR ) DELON HAJI ([id number]) 1990 F Date Time Provider Department 09/22/23 11:00 AM MEG ORTEZ ELDA During your visit today, we recorded the following information about you: Temperature Pulse Respiration Blood pressure 98.2 degrees 88/minute 16/minute 110/64 Weight 88.5 kg Meg Ortez APRN.CNP 09/22/2023 12:02 PM Signed This note was created using NoteWriter. Subjective Delon Haji is a 33 year [...] history is provided by the patient. No sign language translator was used. Musculoskeletal Problem This is a [...] daily. (Patient not taking: Reported on 03/03/2019) Luxddxgh-Hi-Viu-Fe-FA tab Take 1 tablet by mouth once [...] Vitals and (more content not included)... Normal [facility] XR DIGIT 3V FRONTAL/LAT/OBL LTon 09-22-2023 XR [...] tuft of the LEFT 3rd distal phalanx. Facing Slitter: DARREN Transcribe Date/Time: Sep 22 2023 11:32A Dictated by : JANIE MCDOWELL DO This examination was interpreted and the report reviewed and electronically signed by: JANIE MCDOWELL DO on Sep 22 2023 11:35AM EST [id number] Normal [facility] XR Finger - left AP and Late ral and obliqueon 09-22-2023 IMPRESSION: Suspect nondisplaced fracture tuft of the LEFT 3rd distal phalanx. Facing Slitter: PSCAbril Transcribe Date/Time: Sep 22 2023 11:32A Dictated [...] spaces are maintained. DIVISION OF RADIOLOGY Provider, [facility] - 09/22/2023 * * *Final Report* * [...] tuft of the LEFT 3rd distal phalanx. Facing Slitter: PSCB Transcribe Date/Time: Sep 22 2023 11:32A Dictated by : JANIE MCDOWELL DO This examination was interpreted and the report reviewed and electronically signed by: JANIE MCDOWELL DO on Sep 22 2023 11:35AM [facility] Radiology Study observation (narrative) [facility] XR Finger - left AP and Late ral and obliqueOrdered By: [facility] Provider on 09-22-2023 [facility] Rogelio 08-25-2023 Lamotrigine Lvl 3.5 UG/ML Normal 2.0-20.0 [facility] ([place]) Comment on above: Result Comment: Dete ction Limit = 1.0 Performed At: [facility] [place] [place], [place] [id number] Asim Montes MD Ph:[phone] Performed By: #### M DW, CMP, ANEU, LAC, 746370, GFR, PREGS, CBC, MG, ADIFF ####[address] [address] .Auto Diffon 08-21-2023 Basophil, Absolute 0.0 10 3/mcL Normal 0.0-0.2 [facility] ([place]) Comment on above: Performed By: #### M DW, CMP, ANEU, LAC, 514442, GFR, PREGS, CBC, MG, ADIFF #### [address] [address] Basophils/100 WBC (Bld) 0.3 % Normal 0.0-2.5 [facility] ([place]) Comment on above: Performed By: #### M DW, CMP, ANEU, LAC, 447431, GFR, PREGS, CBC, MG, ADIFF #### [address] [address] Eosinophil, Absolute 0.0 10 3/mcL Normal 0.0-0.4 [facility] ([place]) Comment on above: Performed By: #### M DW, CMP, ANEU, LAC, 512795, GFR, PREGS, CBC, MG, ADIFF #### [address] [address] Eosinophils/100 WBC (Bld) 0.3 % Normal 0.0-7.0 [facility] ([place]) Comment on above: Performed By: #### M DW, CMP, ANEU, LAC, 407492, GFR, PREGS, CBC, MG, ADIFF #### [address] [address] Lymphocyte, Absolute 1.1 10 3/mcL Normal 0.8-3.9 [facility] ([place]) Comment on above: Performed By: #### M DW, CMP, ANEU, LAC, 138829, GFR, PREGS, CBC, MG, ADIFF #### [address] [address] Lymphocytes/100 WBC (Bld) 9.3 % Low 10.0-50.0 [facility] ([place]) Comment on above: Performed By: #### M DW, CMP, ANEU, LAC, 841124, GFR, PREGS, CBC, MG, ADIFF #### [address] [address] Monocyte, Absolute 0.5 10 3/mcL Normal 0.2-1.0 [facility] ([place]) Comment on above: Performed By: #### M DW, CMP, ANEU, LAC, 899429, GFR, PREGS, CBC, MG, ADIFF #### [address] [address] Monocytes/100 WBC (Bld) 4.2 % Normal 1.7-13.0 [facility] ([place]) Comment on above: Performed By: #### M DW, CMP, ANEU, LAC, 473193, GFR, PREGS, CBC, MG, ADIFF #### [address] [address] Neutrophils/100 WBC (Bld) 85.9 % High 37.0-80.0 [facility] ([place]) Comment on above: Performed By: #### M DW, CMP, ANEU, LAC, 904920, GFR, PREGS, CBC, MG, ADIFF #### [address] [address] .GFRon 08-21-2023 GFR 100 ml/min/1.73sqm Normal [facility] ([place]) Comment on above: Result Comment: GFR Population [...] By: #### M DW, CMP, ANEU, LAC, 066655, GFR, PREGS, CBC, MG, ADIFF ####[address] [place], [place] [address] GFR Non- 83 ml/min/1.73sqm Normal [facility] ([place]) Comment on above: Result Comment: GFR Population [...] By: #### M DW, CMP, ANEU, LAC, 166741, GFR, PREGS, CBC, MG, ADIFF ####[address] [place], [place] [address] .MDWon 08-21-2023 Monocyte Distribution Width 15.17 Normal 0.00-20.00 [facility] ([place]) Comment on above: Result Comment: For ED adult patients suspected of sepsis, MDW<=20.0 does not rule out sepsis or risk of sepsis Performed By: #### M DW, CMP, ANEU, LAC, 103873, GFR, PREGS, CBC, MG, ADIFF #### [address] [address] .NEUABSon 08-21-2023 Neutrophil, Absolute 9.8 10 3/mcL High 2.9-6.2 [facility] ([place]) Comment on above: Performed By: #### M DW, CMP, ANEU, LAC, 830094, GFR, PREGS, CBC, MG, ADIFF #### [address] [place], [place] [address] .Urinalysis Microscopic (AO) on 08-21-2023 UA Bacteria 2+ /hpf Abnormal [facility] ([place]) Comment on above: Performed By: #### U AMICAO, UDRUG, UA ####[address] [place], [place] [address] UA Mucous Trace Normal [facility] ([place]) Comment on above: Performed By: #### U AMICAO, UDRUG, UA ####[address] [place], [place] [address] UA RBC None Seen Normal None Seen [facility] ([place]) Comment on above: Performed By: #### U AMICAO, UDRUG, UA ####[address] [place] [id number] UA Squam Epithelial 5-10 Abnormal None Seen [facility] ([place]) Comment on above: Performed By: #### U AMICAO, UDRUG, UA ####[address] [place] [address] UA WBC 0-5 Abnormal None Seen [facility] ([place]) Comment on above: Performed By: #### U AMICAO, UDRUG, UA ####[address] [place] [address] CBCon 08-21-2023 Erythrocyte distribution width (RBC) [Ratio] 13.3 % Normal 11.5-14.5 [facility] ([place]) Comment on above: Performed By: #### M DW, CMP, ANEU, LAC, 664529, GFR, PREGS, CBC, MG, ADIFF #### [address] [place], [place] [address] Hematocrit (Bld) [Volume fraction] 40.3 % Normal 37.0-47.0 [facility] ([place]) Comment on above: Performed By: #### M DW, CMP, ANEU, LAC, 912843, GFR, PREGS, CBC, MG, ADIFF #### [address] [place] [address] [place] [id number] Hgb 13.9 G/dL Normal 12.0-16.0 [facility] ([place]) Comment on above: Performed By: #### M DW, CMP, ANEU, LAC, 413933, GFR, PREGS, CBC, MG, ADIFF #### [address] [address] MCH (RBC) [Entitic mass] 32.2 pg High 27.0-31.2 [facility] ([place]) Comment on above: Performed By: #### M DW, CMP, ANEU, LAC, 742252, GFR, PREGS, CBC, MG, ADIFF #### [address] [address] MCHC 34.5 G/dL Normal 33.0-37.0 [facility] ([place]) Comment on above: Performed By: #### M DW, CMP, ANEU, LAC, 564075, GFR, PREGS, CBC, MG, ADIFF #### [address] [address] MCV (RBC) [Entitic vol] 93.2 fL Normal 80.0-94.0 [facility] ([place]) Comment on above: Performed By: #### M DW, CMP, ANEU, LAC, 214834, GFR, PREGS, CBC, MG, ADIFF #### [address] [address] Platelet 275 10 3/mcL Normal 130-400 [facility] ([place]) Comment on above: Performed By: #### M DW, CMP, ANEU, LAC, 787587, GFR, PREGS, CBC, MG, ADIFF #### [address] [address] Platelet mean volume (Bld) [Entitic vol] 7.3 fL Low 7.4-10.4 [facility] ([place]) Comment on above: Performed By: #### M DW, CMP, ANEU, LAC, 502750, GFR, PREGS, CBC, MG, ADIFF #### [address] [address] RBC 4.33 10 6/mcL Normal 4.20-5.40 [facility] ([place]) Comment on above: Performed By: #### M DW, CMP, ANEU, LAC, 488332, GFR, PREGS, CBC, MG, ADIFF #### [address] [address] WBC 11.4 10 3/mcL High 4.6-10.8 [facility] ([place]) Comment on above: Performed By: #### M DW, CMP, ANEU, LAC, 025027, GFR, PREGS, CBC, MG, ADIFF #### [address] [address] CMPon 08-21-2023 Albumin Level 4.1 G/dL Normal 3.5-5.0 [facility]) Comment on above: Performed By: #### M DW, CMP, ANEU, LAC, [id number], GFR, PREGS, CBC, MG, ADIFF #### [address] [address] Albumin/Globulin [Mass ratio] 1.4 {ratio} Normal 1.1-2.5 [facility]) Comment on above: Performed By: #### M DW, CMP, ANEU, LAC, [id number], GFR, PREGS, CBC, MG, ADIFF #### [address] [address] ALP [Catalytic activity/Vol] 83 U/L Normal 40-135 [facility] ([place]) Comment on above: Performed By: #### M DW, CMP, ANEU, LAC, [id number], GFR, PREGS, CBC, MG, ADIFF #### [address] [address] ALT [Catalytic activity/Vol] 19 U/L Normal 14-59 [facility] ([place]) Comment on above: Performed By: #### M DW, CMP, ANEU, LAC, [id number], GFR, PREGS, CBC, MG, ADIFF #### [address] [address] AST [Catalytic activity/Vol] 10 U/L Normal 10-40 [facility] ([place]) Comment on above: Performed By: #### M DW, CMP, ANEU, LAC, 772146, GFR, PREGS, CBC, MG, ADIFF #### [address] [address] Bili Total 0.4 mg/dL Normal 0.2-1.0 [facility] ([place]) Comment on above: Result Comment: Use of this assay is not recommended for patients undergoing treatment with eltrombopag due to the potential for falsely elevated results. Performed By: #### M DW, CMP, ANEU, LAC, [id number], GFR, PREGS, CBC, MG, ADIFF #### [address] [address] BUN/Creatinine Ratio 16 ratio Normal 7-27 [facility] ([place]) Comment on above: Performed By: #### M DW, CMP, ANEU, LAC, 540020, GFR, PREGS, CBC, MG, ADIFF #### [address] [address] Calcium [Mass/Vol] 9.2 mg/dL Normal 8.4-10.2 [facility] ([place]) Comment on above: Performed By: #### M DW, CMP, ANEU, LAC, [id number], GFR, PREGS, CBC, MG, ADIFF #### [address] [address] Chloride [Moles/Vol] 106 mmol/L Normal 98-107 [facility] ([place]) Comment on above: Performed By: #### M DW, CMP, ANEU, LAC, 836808, GFR, PREGS, CBC, MG, ADIFF #### [address] [address] CO2 [Moles/Vol] 28 mmol/L Normal 22-29 [facility] ([place]) Comment on above: Performed By: #### M DW, CMP, ANEU, LAC, [id number], GFR, PREGS, CBC, MG, ADIFF #### [address] [address] Creatinine [Mass/Vol] 0.80 mg/dL Normal 0.55-1.02 [facility] ([place]) Comment on above: Performed By: #### M DW, CMP, ANEU, LAC, 829700, GFR, PREGS, CBC, MG, ADIFF #### [address] [address] Electrolyte Balance 8.0 mEq/L Normal 4.0-15.0 [facility] ([place]) Comment on above: Performed By: #### M DW, CMP, ANEU, LAC, 098269, GFR, PREGS, CBC, MG, ADIFF #### [address] [address] Globulin 3.0 G/dL Normal [facility] ([place]) Comment on above: Performed By: #### M DW, CMP, ANEU, LAC, 078761, GFR, PREGS, CBC, MG, ADIFF #### [address] [address] Glucose [Mass/Vol] 104 mg/dL Normal 70-105 [facility] ([place]) Comment on above: Performed By: #### M DW, CMP, ANEU, LAC, 820759, GFR, PREGS, CBC, MG, ADIFF #### [address] [address] Potassium [Moles/Vol] 4.4 mmol/L Normal 3.5-5.1 [facility] ([place]) Comment on above: Performed By: #### M DW, CMP, ANEU, LAC, 648242, GFR, PREGS, CBC, MG, ADIFF #### [address] [address] Sodium [Moles/Vol] 142 mmol/L Normal 136-145 [facility] ([place]) Comment on above: Performed By: #### M DW, CMP, ANEU, LAC, 945931, GFR, PREGS, CBC, MG, ADIFF #### [address] [address] Total Protein 7.1 G/dL Normal 6.4-8.2 [facility] ([place]) Comment on above: Performed By: #### M DW, CMP, ANEU, LAC, 947075, GFR, PREGS, CBC, MG, ADIFF #### [facility] [place] [facility] [address] [place], [place] [address] Urea nitrogen [Mass/Vol] 13 mg/dL Normal 7-18 [facility] ([place]) Comment on above: Performed By: #### M DW, CMP, ANEU, LAC, 395024, GFR, PREGS, CBC, MG, ADIFF #### Chika [place] [address] [place], [place] [address] CT HEAD OR BRAIN W/O CONTRAS Ton [...] 08/21/2023 2:08:47 PM Ordering Provider: JACOB Saldana [facility] ([place]) LABORATORYOrdered By: SYSTEM SYSTEM on 08-21-2023 Albumin [...] Lactic Acid Lvl 1.2 mmol/L Normal 0.4-2.0 [facility] ([place]) Comment on above: Performed By: #### M DW, CMP, ANEU, LAC, 697254, GFR, PREGS, CBC, MG, ADIFF #### [address] [address] MGon 08-21-2023 Magnesium [Mass/Vol] 2.1 mg/dL Normal 1.8-2.4 [facility]) Comment on above: Performed By: #### M DW, CMP, ANEU, LAC, 095664, GFR, PREGS, CBC, MG, ADIFF #### [address] [address] PREGSon 08-21-2023 test (s) Negative Normal [facility] ([place]) Comment on above: Performed By: #### M DW, CMP, ANEU, LAC, 433528, GFR, PREGS, CBC, MG, ADIFF #### [address] [place], [place] [address] test (s) int Not detected Invalid Interpretation Code [facility] ([place]) Comment on above: Performed By: #### M DW, CMP, ANEU, LAC, 905151, GFR, PREGS, CBC, MG, ADIFF #### Chika [address] [place], [place] [address] UAon 08-21-2023 Color (U) Yellow Normal [facility] ([place]) Comment on above: Result Comment: Spec imen volumes less than 5 ml may not yield chemical or microscopic results truly reflective of renal function or general metabolic status. Performed By: #### U AMICAO, UDRUG, UA ####[address] [place] [id number] Glucose (U) [Mass/Vol] Negative Normal Negative [facility] ([place]) Comment on above: Performed By: #### U AMICAO, UDRUG, UA ####[address] [place], [place] [address] Ketones Ql (U) Negative Normal Negative [facility] ([place]) Comment on above: Performed By: #### U AMICAO, UDRUG, UA ####[address] [place], [place] [address] UA Appear Clear Normal Clear [facility] ([place]) Comment on above: Performed By: #### U AMICAO, UDRUG, UA ####[address] [place], [place] [address] UA Blood Large Abnormal Negative [facility] ([place] Comment on above: Performed By: #### U AMICAO, UDRUG, UA ####[address] [place], [place] [address] UA Leuk Est Negative Normal Negative [facility] ([place] Comment on above: Performed By: #### U AMICAO, UDRUG, UA ####[address] [place], [place] [address] UA Nitrite Negative Normal Negative [facility] ([place] Comment on above: Performed By: #### U AMICAO, UDRUG, UA ####[address] [place], [place] [address] UA pH 7.0 Normal 5.0 - 8.0 [facility] ([place]) Comment on above: Performed By: #### U AMICAO, UDRUG, UA ####[address] [place] [place], [place] [address] UA Protein Trace Normal Negative [facility] ([place] Comment on above: Performed By: #### U AMICAO, UDRUG, UA ####[address] [place], [place] [address] UA Spec Grav 1.025 Normal 1.015-1.025 [facility] ([place]) Comment on above: Performed By: #### U AMICAO, UDRUG, UA ####[address] [place], [place] [address] UA Specimen Type Clean Catch Normal [facility] ([place] Comment on above: Performed By: #### U AMICAO, UDRUG, UA ####[address] [place], [place] [address] UA Urobilinogen 0.2 E.U./dL Normal 0.2-1.0 [facility] ([place]) Comment on above: Performed By: #### U AMICAO, UDRUG, UA ####[address] [place], [place] [address] Urobilinogen (U) [Mass/Vol] Negative Normal Negative [facility] ([place] Comment on above: Performed By: #### U AMICAO, UDRUG, UA ####[address] [place], [place] [address] UDRUGon 08-21-2023 Amphetamine (u) Negative Normal Negative [facility] ([place] Comment on above: Performed By: #### U AMICAO, UDRUG, UA ####[address] [place] [place], [place] [address] Barbiturate (u) Negative Normal Negative [facility] ([place]) Comment on above: Performed By: #### U AMICAO, UDRUG, UA ####[address] [place], [place] [address] Benzodiazepine (u) Negative Normal Negative [facility] ([place]) Comment on above: Performed By: #### U AMICAO, UDRUG, UA ####[address] [place], [place] [address] Cannabinoid (u) Positive Abnormal Negative [facility] ([place]) Comment on above: Performed By: #### U AMICAO, UDRUG, UA ####[id number] [place], [place] [address] Cocaine Ql (U) Negative Normal Negative [facility] ([place]) Comment on above: Performed By: #### U AMICAO, UDRUG, UA ####[address] [place] [address] Methadone Ql (U) Negative Normal Negative [facility] ([place]) Comment on above: Performed By: #### U AMICAO, UDRUG, UA ####[address] [place] [address] Opiate (u) Negative Normal Negative [facility] ([place]) Comment on above: Performed By: #### U AMICAO, UDRUG, UA ####[address] [place] [address] PCP (u) Negative Normal Negative [facility] ([place]) Comment on above: Performed By: #### U AMICAO, UDRUG, UA ####[address] [place] [address] Urine Drugs screened: See Below Normal [facility] ([place]) Comment on above: Result Comment: This drug [...] MEDICAL PURPOSES ONLY. Performed By: #### U AMICAO, UDRUG, UA ####[address] [place] [address] CNOVon 03-12-2023 CN Office Visit (GENSWS ) DELON HAJI ([id number]) 1990 F Date Time Provider Department 03/12/23 3:00 PM GINETTE WASSERMANS During your visit today, we recorded the [...] to your office visit today with the [facility] General Surgeons. Instructions After ABSCESS [...] 10 mi (more content not included)... Normal [facility] CNOVon 03-11-2023 CNOV Office Visit (UCWSTR ) DELON HAJI Rishabh ([id number]) 1990 F Date Time Provider Department 03/11/23 11:45 AM [facility] During your visit today, we recorded the following information about you: Temperature Pulse Respiration Blood pressure 98.6 degrees 110/minute 18/minute 113/76 Weight 83.7 kg Davina Thomas APRN.CNP 03/11/2023 12:36 PM Signed Subjective HPI HPI Delon Keating Adithya is a 32 year old female who [...] daily. (Patient not taking: Reported on 03/03/2019) Txwrfoka-Vf-Crs-Fe-FA tab Take 1 tablet by mouth once [...] CONSULT TO GENERAL SURGERY Davina Thomas APRN.MAT Allergies As of Date: 03/11/2023 Noted Allergy Reaction TOMATO 04/02/2022 8 - GI Upset Date Reviewed: 03/11/2023 Reviewed by: Davina Thomas APRN.WOOD HEEL CEMENTER - Fully Assessed Reason for Visit: Derm Problem [33] Cmt: Cyst or abscess L buttocks x1 day Primary Visit Diagnosis:Cutaneous abscess of buttock [L02.31] Order(s):doxycycline monohydrate 100 mg tabletTake 1 tablet by mouth twice daily for 5 days.Disp: 10 tabletRfl: 0 CONSULT TO GENERAL SURGERY [9011] Order #: [id number]: 1 FUTURE Prescriptions as of 03/11/2023 - [...] by mo (more content not included)... Normal [facility] Progress Noteon 09-08-2022 Yarn Weight And Strength Tester Authentication Interface Message Text Maternal Medicine Consult [...] No Muscular Dystrophy No Cystic Fibrosis No Missy's Chorea No Intellectual Disability/Autism No Metabolic Disorder [...] if target (more content not included)... Normal [facility] LABORATORYOrdered By: Alesha Harrison on 10-21-2021 [...] mass index (BMI) [Ratio] 32.99 kg/m2 Alison Givens V, DO Work Phone: [facility] 10-05-2024 08:07-0400 Body temperature 97.9 [degF] Alison Kellyu V, DO Work Phone: [facility] 10-05-2024 08:07-0400 Body weight 101.33 kg Alison Givens V, DO Work Phone: [facility] 10-05-2024 08:07-0400 Diastolic blood pressure 61 mm[Hg] Alison Givens V, DO Work Phone: [facility] 10-05-2024 08:07-0400 Heart rate 81 /min Alison Maturu V, DO Work Phone: [facility] 10-05-2024 08:07-0400 Systolic blood pressure 121 mm[Hg] Alison Maturu V, DO Work Phone: [facility] 03-18-2024 15:20-0400 Body temperature 98.78 [degF] DR JENA SWANSON MD [facility] 03-18-2024 15:20-0400 Diastolic Blood Pressure Non-Invasive 68 mm[Hg] DR JENA SWANSON MD [facility] 03-18-2024 15:20-0400 Heart rate 100 /min DR JENA SWANSON MD [facility] 03-18-2024 15:20-0400 Respiratory rate 18 /min DR JENA SWANSON MD [facility] 03-18-2024 15:20-0400 Systolic Blood Pressure Non-Invasive 112 mm[Hg] DR JENA SWANSON MD [facility] 02-25-2024 18:03-0400 Body temperature 97.34 [degF] ROQUE MEJÍA DO [facility] 02-25-2024 18:03-0400 Body weight 81 kg ROQUE MEJÍA DO [facility] 02-25-2024 18:03-0400 Diastolic Blood Pressure Non-Invasive 71 mm[Hg] ROQUE MEJÍA DO [facility] 02-25-2024 18:03-0400 Heart rate 105 /min ROQUE MEJÍA DO [facility] 02-25-2024 18:03-0400 Respiratory rate 16 /min ROQUE MEJÍA DO [facility] 02-25-2024 18:03-0400 Systolic Blood Pressure Non-Invasive 122 mm[Hg] ROQUE MEJÍA DO [facility] 11-14-2023 17:40-0400 Blood Pressure Cuff Size NORMA FANGT DO [facility] 11-14-2023 17:40-0400 Blood Pressure Location NORMA ECKERT DO [facility] 11-14-2023 17:40-0400 Blood Pressure Method NORMA ECKERT D O [facility] 11-14-2023 17:40-0400 Body temperature 97.7 [degF] NORMA FANGT DO [facility] 11-14-2023 17:40-0400 Diastolic Blood Pressure Non-Invasive 76 mm[Hg] NORMA FANGT DO [facility] 11-14-2023 17:40-0400 Heart rate 88 /min NORMA FANGT DO [facility] 11-14-2023 17:40-0400 Respiratory rate 16 /min NORMA ECKERT DO [facility] 11-14-2023 17:40-0400 Systolic Blood Pressure Non-Invasive 125 mm[Hg] NORMA FANGT DO [facility] 11-12-2023 11:01-0400 Body temperature 98.01 [degF] Jaylyn BARNHART Work Phone: [facility] 11-12-2023 11:01-0400 Body weight 87.5 kg Jaylyn BARNHART Work Phone: [facility] 11-12-2023 11:01-0400 Diastolic blood pressure 64 mm[Hg] Krislyn Aberegg PA Work Phone: [facility] 11-12-2023 11:01-0400 Heart rate 69 /min Krislyn Aberegg PA Work Phone: [facility] 11-12-2023 11:01-0400 Respiratory rate 16 /min Krislyn Aberegg PA Work Phone: [facility] 11-12-2023 11:01-0400 SaO2% (BldA) [Mass fraction] 98 % Krislyn Aberegg PA Work Phone: [facility] 11-12-2023 11:01-0400 Systolic blood pressure 128 mm[Hg] Krislyn Aberegg PA Work Phone: [facility] 10-13-2023 08:22-0400 Body height 175.3 cm Tonja Rojas NET TECHNICAL ARCHITECT-WOOD HEEL CEMENTER Work Phone: [facility] 10-13-2023 08:22-0400 Body mass index (BMI) [Ratio] 27.76 kg/m2 Crystal Rojas NET TECHNICAL ARCHITECT-WOOD HEEL CEMENTER Work Phone: [facility] 10-13-2023 08:22-0400 Body temperature 100 [degF] Crystal Rojas NET TECHNICAL ARCHITECT-WOOD HEEL CEMENTER Work Phone: [facility] 10-13-2023 08:22-0400 Body weight 85.28 kg Crystal Rojas NET TECHNICAL ARCHITECT-WOOD HEEL CEMENTER Work Phone: [facility] 10-13-2023 08:22-0400 Diastolic blood pressure 57 mm[Hg] Crystal Rojas NET TECHNICAL ARCHITECT-WOOD HEEL CEMENTER Work Phone: [facility] 10-13-2023 08:22-0400 Heart rate 94 /min Crystal Rojas NET TECHNICAL ARCHITECT-WOOD HEEL CEMENTER Work Phone: [facility] 10-13-2023 08:22-0400 Systolic blood pressure 122 mm[Hg] Crystal Rojas NET TECHNICAL ARCHITECT-WOOD HEEL CEMENTER Work Phone: [facility] 09-22-2023 11:09-0500 Body temperature 98.2 [degF] Meg Ortez NET TECHNICAL ARCHITECT.WO[employer] HE[employer] CEMENTER Work Phone: [facility] 09-22-2023 11:09-0500 Body weight 88.45 kg Meg Ortez NET TECHNICAL ARCHITECT.WO[employer] HEEL CEMENTER Work Phone: [facility] 09-22-2023 11:09-0500 Diastolic blood pressure 64 mm[Hg] Meg Ortez NET TECHNICAL ARCHITECT.WO[employer] HEEL CEMENTER Work Phone: [facility] 09-22-2023 11:09-0500 Heart rate 88 /min Meg Ortez NET TECHNICAL ARCHITECT.WO[employer] HEEL CEMENTER Work Phone: [facility] 09-22-2023 11:09-0500 Respiratory rate 16 /min Meg Ortez NET TECHNICAL ARCHITECT.WOOD HEEL CEMENTER Work Phone: [facility] 09-22-2023 11:09-0500 SaO2% (BldA) [Mass fraction] 98 % Meg Ortez NET TECHNICAL ARCHITECT.WOOD HEEL CEMENTER Work Phone: [facility] 09-22-2023 11:09-0500 Systolic blood pressure 110 mm[Hg] Meg Ortez NET TECHNICAL ARCHITECT.WO[employer] HEEL CEMENTER Work Phone: [facility] 08-21-2023 18:33-0500 Heart rate 98 /min NIDAL CHOUJAA DO [facility] 08-21-2023 17:28-0500 Diastolic Blood Pressure Non-Invasive 60 mm[Hg] NIDAL CHOUJAA DO [facility] 08-21-2023 17:28-0500 Heart rate 83 /min NIDAL CHOUJAA DO [facility] 08-21-2023 17:28-0500 Mean blood pressure 73 mm[Hg] NIDAL CHOUJAA DO [facility] 08-21-2023 17:28-0500 Reason For Taking VItal Signs NIDAL CHOUJAA DO [facility] 08-21-2023 17:28-0500 Respiratory rate 16 /min NIDAL CHOUJAA DO [facility] 08-21-2023 17:28-0500 Systolic Blood Pressure Non-Invasive 98 mm[Hg] NIDAL CHOUJAA DO [facility] 08-21-2023 16:45-0500 Diastolic Blood Pressure Non-Invasive 57 mm[Hg] NIDAL CHOUJAA DO [facility] 08-21-2023 16:45-0500 Heart rate 85 /min NIDAL CHOUJAA DO [facility] 08-21-2023 16:45-0500 Respiratory rate 16 /min NIDAL CHOUJAA DO [facility] 08-21-2023 16:45-0500 Systolic Blood Pressure Non-Invasive 103 mm[Hg] NIDAL CHOUJAA DO [facility] 08-21-2023 14:50-0500 Diastolic Blood Pressure Non-Invasive 62 mm[Hg] NIDAL CHOUJAA DO [facility] 08-21-2023 14:50-0500 Mean blood pressure 73 mm[Hg] NIDAL CHOUJAA DO [facility] 08-21-2023 14:50-0500 Respiratory rate 16 /min NIDAL CHOUJAA DO [facility] 08-21-2023 14:50-0500 Systolic Blood Pressure Non-Invasive 96 mm[Hg] NIDAL CHOUJAA DO [facility] 08-21-2023 12:54-0500 Blood Pressure Location NIDAL CHOUJAA DO [facility] 08-21-2023 12:54-0500 Body temperature 97.16 [degF] NIDAL CHOUJAA DO [facility] 03-12-2023 15:02-0400 Body height 175.3 cm Ginette Irwin PA-C Work Phone: [facility] 03-12-2023 15:02-0400 Body temperature 98.4 [degF] Ginette [place] PA-C Work Phone: [facility] 03-12-2023 15:02-0400 Body weight 83.28 kg Ginette [place] PA-C Work Phone: [facility] 03-12-2023 15:02-0400 Diastolic blood pressure 62 mm[Hg] Ginette Irwin PA-C Work Phone: [facility] 03-12-2023 15:02-0400 Heart rate 101 /min Ginette [place] PA-C Work Phone: [facility] 03-12-2023 15:02-0400 SaO2% (BldA) [Mass fraction] 98 % Ginette Irwin PA-C Work Phone: [facility] 03-12-2023 15:02-0400 Systolic blood pressure 110 mm[Hg] Ginette [place] PA-C Work Phone: [facility] 03-11-2023 11:48-0400 Body temperature 98.6 [degF] Davina Thomas APRN.WOOD HEEL CEMENTER Work Phone: [facility] 03-11-2023 11:48-0400 Body weight 83.73 kg Davina Thomas APRN.WOOD HEEL CEMENTER Work Phone: [facility] 03-11-2023 11:48-0400 Diastolic blood pressure 76 mm[Hg] Davina Thomas APRN.WOOD HEEL CEMENTER Work Phone: [facility] 03-11-2023 11:48-0400 Heart rate 110 /min Davina Thomas NET TECHNICAL ARCHITECT.WOOD HEEL CEMENTER Work Phone: [facility] 03-11-2023 11:48-0400 Respiratory rate 18 /min Davina Thomas NET TECHNICAL ARCHITECT.WOOD HEEL CEMENTER Work Phone: [facility] 03-11-2023 11:48-0400 SaO2% (BldA) [Mass fraction] 99 % Davina Thomas NET TECHNICAL ARCHITECT.WOOD HEEL CEMENTER Work Phone: [facility] 03-11-2023 11:48-0400 Systolic blood pressure 113 mm[Hg] Davina Thomas NET TECHNICAL ARCHITECT.WOOD HEEL CEMENTER Work Phone: [facility] 01-16-2022 07:47-0400 Diastolic blood pressure 64 mm[Hg] Nery Ziegler MBBS Work Phone: [facility] 01-16-2022 07:47-0400 Heart rate 89 /min Nery Ziegler MBBS Work Phone: [facility] 01-16-2022 07:47-0400 Systolic blood pressure 118 mm[Hg] Nery Ziegler MBBS Work Phone: [facility] 01-16-2022 07:36-0400 Body height 172.7 cm Nery Ziegler MBBS Work Phone: [facility] 10-21-2021 16:21-0400 Body temperature 98.42 [degF] NORMA FANGT DO [facility] 10-21-2021 16:21-0400 Diastolic blood pressure 84 mm[Hg] NORMA FANGT DO [facility] 10-21-2021 16:21-0400 Heart rate 100 /min NORMA FANGT DO [facility] 10-21-2021 16:21-0400 Respiratory rate 18 /min NORMA ECKERT DO [facility] 10-21-2021 16:21-0400 Systolic blood pressure 126 mm[Hg] NORMA ECKERT DO [facility] Encounters Encounter Date Encounter Type Care Provider Facility Start: 01-10-2025 End: 01-10-2025 Emergency department patient visit Olaf Astudillo Facility:[facility] Start: 01-02-2025 ambulatory Alisonrukhsana Givens Facility: [facility] Start: 01-01-2025 End: 01-01-2025 Emergency department patient visit No Primary Care Physician Facility:[facility] Start: 11-30-2024 End: 11-30-2024 Emergency department patient visit No Primary Care Physician Facility:[facility] Start: 11-10-2024 ambulatory Caro Chavez Facility :[facility] Start: 11-10-2024 End: 11-12-2024 Evaluation and management of inpatient Caro Ca [place] Facility:[facility] Start: 10-05-2024 End: 10-05-2024 Office outpatient visit 40 minutes Alison Givens DO Work Phone: [facility] Comment on above: Local-rel symptc epi w cmplx prt seiz,not ntrct,w/o stat epi (Primary Dx) Start: 10-05-2024 ambulatory SELF SELF Facility:[facility] Start: 03-18-2024 End: 03-18-2024 Emergency department patient visit DR JENA SWANSON MD [facility] Start: 02-25-2024 End: 02-25-2024 Emergency department patient visit ROQUE MEJÍA DO [facility] Start: 02-23-2024 End: 02-23-2024 Emergency department patient visit No Primary Care Physician Facility:[facility] Start: 01-06-2024 End: 01-06-2024 Emergency department patient visit DYLON BALA [facility] Start: 12-08-2023 Orders Only Becky lynne PA-C Work Phone: Orthopaedics Comment on above: Closed fracture of t uft of distal phalanx of finger (Primary Dx) Start: 11-14-2023 End: 11-14-2023 Emergency department patient visit NORMA ECKERT DO [facility] Start: 11-12-2023 End: 11-12-2023 ambulatory [facility] Facility:[facility] Start: 11-12-2023 End: 11-12-2023 Patient encounter procedure Jaylyn BARNHART Work Phone: [facility] Comment on above: Procedure not jennifer d out (Primary Dx) Start: 10-13-2023 End: 10-13-2023 Office outpatient visit 25 minutes Tonja Xie NET TECHNICAL ARCHITECT-WOOD HEEL CEMENTER Work Phone: Neurology [facility] Comment on above: 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, unspecified epilepsy type (Primary Dx) Start: 09-27-2023 End: 09-27-2023 ambulatory MEG ORTEZ Facility:[facility] Start: 09-27-2023 End: 09-27-2023 Patient encounter procedure Becky Jules PA-C Work Phone: Orthopaedics Comment on above: Closed fracture of t uft of distal phalanx of finger (Primary Dx); Pain of finger of left hand Start: 09-24-2023 End: 09-24-2023 Patient encounter procedure Viet Esparza DO Work Phone: [facility] [place] Comment on above: Injury of finger of left hand, initial encounter; Closed fracture of tuft of distal phalanx of finger Start: 09-24-2023 ambulatory VIET ESPARZA Facility:[facility] Start: 09-22-2023 End: 09-22-2023 Subsequent hospital visit by physician Xr [facility] Work Phone: Radiology Comment on above: Injury of finger of left hand, initial encounter [S69.92XA] Start: 09-22-2023 End: 09-22-2023 ambulatory MEG ORTEZ Facility:[facility] Start: 09-22-2023 End: 09-22-2023 Patient encounter procedure Megjina Ortez NET TECHNICAL ARCHITECT.WOOD HEEL CEMENTER Work Phone: [facility] Comment on above: Injury of finger of left hand, initial encounter (Primary Dx); Closed fracture of tuft of distal phalanx of finger; Subungual hematoma of finger, initial encounter Start: 08-21-2023 End: 08-21-2023 Emergency department patient visit JACOB MARTÍNEZ DO [facility] Start: 03-12-2023 End: 03-12-2023 ambulatory GINETTE WASSERMAN Facility:[facility] Start: 03-12-2023 End: 03-12-2023 Patient encounter procedure Ginette Wasserman PA-C Work Phone: General Surgery Comment on above: Abscess of left thig h (Primary Dx) Start: 03-11-2023 End: 03-11-2023 ambulatory GINETTE WASSERMAN Facility:[facility] Start: 03-11-2023 End: 03-11-2023 Patient encounter procedure Davina Thomas NET TECHNICAL ARCHITECT.WOOD HEEL CEMENTER Work Phone: [facility] Comment on above: Cutaneous abscess of buttock (Primary Dx) Start: 05-29-2022 Telephone encounter [facility] Comment on above: Insurance Start: 01-16-2022 End: 01-16-2022 Subsequent hospital visit by physician Nery SALCEDO Work Phone: [facility] Comment on above: Arrived Start: 10-21-2021 End: 10-21-2021 Emergency department patient visit NORMA FANGNavdeep DO [facility] Start: 01-14-2017 End: 05-19-2018 Patient requested procedure Becky Jules PA-C Work Phone: [facility] Procedures Date Procedure Procedure Detail Performing Clinician Start: 09-22-2023 Radex fingr minimum 2 views Meg Ortez APRN.MAT Work Phone: Plan of Treatment Date Care Activity Detail Author Start: 07-24-2032 Urine microalbumin profile DTaP,Tdap,Td Vaccine (11 - Td or Tdap) [facility] Start: 10-17-2028 Tetanus vaccination TETANUS [facility] Start: 10-17-2028 Urine microalbumin profile DTAP,TDAP,TD (4 - Td or Tdap) [facility] Start: 02-15-2025 End: 02-15-2025 Patient encounter procedure 02/15/2025 8:15 AM EDT Office Visit Neurology [facility] [address] [address] Alison Thakkar, [address] [place] [address] Neurology [facility] Start: 03-26-2024 Covid-19 Vaccine ( season) Covid-19 Vaccine ( season) [facility] Start: 03-26-2024 COVID-19 VACCINE ( season) COVID-19 VACCINE ( season) [facility] Start: 03-26-2024 Influenza vaccination O [facility] Start: 12-13-2023 End: 12-13-2023 Patient encounter procedure 12/13/2023 10:30 AM EDT Office Visit Orthopaedics [address] [place], [place] [id number] Becky Jules PA-C [address] [place] [address] Injury of finger of left hand, initial encounter [S69.92XA]; Closed fracture of tuft of distal phalanx of finger [S62.639A] follow up per web request Orthopaedics Comment on above: Injury of finger of left hand, initial encounter [S69.92XA]; Closed fracture of tuft of distal phalanx of finger [D21.903S] follow up per web request Start: 07-26-2023 Behavioral Health Screening Behavioral Health Screening [facility] Start: 07-26-2023 Depression Assessment Depression Ass essment [facility] Start: 05-03-2023 PAP TESTING PAP TESTING [facility] Start: 05-03-2023 Screening for malign ant neoplasm of cervix Pap Testing [facility] Start: 03-26-2023 COVID-19 VACCINE ( season) COVID-19 VACCINE () [facility] Start: 03-26-2023 Influenza vaccination C [facility] Start: 07-26-2022 DEPRESSION [facility]MENT [facility] Start: 03-26-2022 Influenza vaccination O [facility] Start: 01-20-2022 End: 01-20-2022 Telemedicine consultation with patient 01/20/2022 Telemedicine Neurology Nery Ziegler MBBS [address] [facility] [address] [place] [address] [facility] Start: 05-03-2021 Screening for malign ant neoplasm of cervix Cervical Cancer Screening [facility] Start: 2020 HPV TESTING HPV TESTING [facility] Start: 2020 Screening for malign ant neoplasm of cervix HPV Testing [facility] Start: 2011 Screening for malign ant neoplasm of cervix CERVICAL CANCER SCREENING DISCUSSION [facility] Start: 2009 Hepatitis B vaccination HEP B VACCINE (1 of 3 - 19+ 3-dose series) [facility] Start: 2009 Hepatitis B Vaccine (1 of 3 - 19+ 3-dose series) Hepatitis B Vaccine (1 of 3 - 19+ 3-dose series) [facility] Start: 2009 PNEUMOCOCCAL VACCINE SERIES (1 of 2 - PCV) PNEUMOCOCCAL VACCINE SERIES (1 of 2 - PCV) [facility] Start: 2009 Third diphtheria, tetanus and acellular pertussis (DTaP) vaccination TDAP (ADULT) [facility] Start: 2008 Anxiety Screening Anxiety Screening [facility] Start: 2008 Depression Screening Depression Scre ening [facility] Start: 2008 Tetanus vaccination TETANUS [facility] Start: 01-20-2008 HPV Vaccine (3 - 3-d ose series) HPV Vaccine (3 - 3-dose series) [facility] Start: 2005 HIV screening HIV SCREENING DISCUSSION [facility] Start: 1996 PNEUMOCOCCAL (1 - PCV) PNEUMOCOCCAL (1 - PCV) [facility] Start: 1996 Pneumococcal vaccination Pneumococcal Vaccine (1 of 2 - PCV) [facility] Start: 1996 PNEUMOCOCCAL VACCINE SERIES (1 - PCV) PNEUMOCOCCAL VACCINE SERIES (1 - PCV) [facility] Start: 1996 PNEUMOCOCCAL VACCINE SERIES (1 of 2 - PCV) PNEUMOCOCCAL VACCINE SERIES (1 of 2 - PCV) [facility] Start: 01-20-1991 COVID-19 VACCINE (#1) COVID-19 VACCI NE (#1) [facility] Start: 1990 HEPATITIS B (1 of 3 - 3-dose series) HEPATITIS B (1 of 3 - 3-dose series) [facility] Start: 1990 Hepatitis B Vaccine (1 of 3 - 3-dose series) Hepatitis B Vaccine (1 of 3 - 3-dose series) [facility] Start: 1990 Hepatitis C antibody , confirmatory test HEPATITIS C VIRUS SCREENING [facility] Start: 1990 Hepatitis C screening HEPATITI S C VIRUS SCREENING [facility] End: 01-16-2022 MR Brain WO contrast [facility] Comment on above: 1 Occurrences starti ng 01/16/2022 until 01/16/2022 End: 01-06-2025 XR Finger - left AP and Lateral and oblique XR DIGIT GENERAL 3V FRONTAL/LAT/OBL LEFT Radiology Routine Closed fracture of tuft of distal phalanx of finger 1 Occurrences starting 12/08/2023 until 01/06/2025 [facility] Work Phone: Comment on above: 1 Occurrences starti ng 12/08/2023 until 01/06/2025 [facility] Immunizations Immunization Date Immunization Notes Care Provider Opal gonzalez 10-17-2018 tetanus toxoid, redu windy diphtheria toxoid, and acellular pertussis vaccine, adsorbed Davina William NET TECHNICAL ARCHITECT.WOOD HEEL CEMENTER Work Phone: [facility] 05-02-2015 tetanus toxoid, redu windy diphtheria toxoid, and acellular pertussis vaccine, adsorbed Davina William NET TECHNICAL ARCHITECT.WOOD HEEL CEMENTER Work Phone: [facility] 09-23-2014 tetanus toxoid, redu windy diphtheria toxoid, and acellular pertussis vaccine, adsorbed Davina William NET TECHNICAL ARCHITECT.WOOD HEEL CEMENTER Work Phone: [facility] 09-10-2014 influenza, injectabl e, quadrivalent, preservative free Davina William NET TECHNICAL ARCHITECT.WOOD HEEL CEMENTER Work Phone: [facility] 09-10-2014 influenza virus vaccine, unspecified formulation Nery SALCEDO Work Phone: [facility] Payers Date Payer Category Payer Self-pay 2023 Unknown [id number] 2023 Unknown PENDING 2022 Medicaid [employer] [facility] MEDICAID [id number] 2022-Present [phone] [address] [place] [address] Medicaid [id number] 2022 Medicaid [id number] 2021 Unknown [id number] 1990 Unknown [id number] [id number] 1990 Unknown [id number] 2..[id number] 1990 Unknown [id number] [id number] 1990 Unknown [id number] [id number] 1990 Unknown [id number] [id number] Unknown [id number] [id number] Unknown [id number] [id number] Unknown [id number] [id number] Unknown [id number] [id number] Unknown [id number] [id number] Unknown [id number] [id number] Unknown [id number] [id number] Unknown [id number] [id number] Unknown [id number] Social History Date Type Detail Facility Start: 04-09-2021 End: 03-18-2024 Tobacco smoking status Heavy tobacco smoker (finding) [facility] Sex Assigned At Female [facility] Start: 12-23-2021 End: 10-13-2023 Tobacco smoking status COIS Smokes tobacco daily [facility] History of tobacco use Cigarette Smoker [facility] Start: 12-23-2021 End: 10-05-2024 Cigarettes smoked current (pack per day) - Reported 0.5 [facility] Start: 12-23-2021 End: 10-13-2023 Tobacco use and exposure Smokeless tobacco non-user [facility] Start: 01-16-2022 End: 02-24-2022 Alcohol intake Current drinker of alcohol (finding) [facility] Start: 12-23-2021 History SDOH Alcohol Comment occaisionaly [facility] Start: 10-02-2021 [facility] Start: 1990 Sex Assigned At Not on file O [facility] Start: 03-11-2023 End: 09-22-2023 Alcohol intake Current non-drinker of alcohol (finding) [facility] Start: 03-11-2023 End: 10-05-2024 Tobacco use panel [facility] National Score (1-10 0), lower number is lower risk Not on file [facility] Start: 03-11-2023 Tobacco Comment 4-6 cigarettes a day [facility] Start: 10-13-2023 End: 10-05-2024 Alcoholic beverage intake Ex-drinker (finding) [facility] Start: 09-20-2020 Sex Female (finding) [facility] Start: 09-28-2024 Gender identity Identifies as female gender (finding) [facility] Start: 09-28-2024 Sexual orientation Heterosexual (fin juan luis) [facility] Functional Status Date Assessment Result Facility 03-18-2024 Functional Status ID band on, Call device within reach, Bed in low position, Wheels locked, Bedside Cart Locked, Visitor at bedside, Safety level maintained [facility] 02-25-2024 Functional Status Standard Safet y ID band on, Call device within reach, Bed in low position, Wheels locked, Visitor at bedside [facility] 11-14-2023 Functional Status Ambulation in Conrad, Ambulation in Room [facility] 08-21-2023 Functional Status Independent Chika Cartagena [facility] 08-21-2023 Functional Status Standard Safet y Safety level maintained [facility] 08-21-2023 Functional Status Awake Chika Cartagena [facility] 10-21-2021 Functional Status Chika Cartagena [facility] Mental Status Date Assessment Result Facility 03-18-2024 Mental Status Oriented x 4 [facility] 02-25-2024 Mental Status Orientation Oriented x 4 [facility] 11-14-2023 Mental Status Orientation Oriented x 4 [facility] 08-21-2023 Mental Status Orientation Oriented x 4 [facility] 08-21-2023 Mental Status [facility] 10-21-2021 Mental Status [facility] Clinical Notes 09-19-2018 to 10-05-2024 Alison Hernandez DO - 10/05/2024 8:15 AM EDTPatient InstructionsJaylyn Charlton PA - 11/12/2023 11:09 AM EDTCFLORIN Pedroza - 10/13/2023 8:20 AM EDTPatient Instructions Note Date & Type Note Facility 10-05-2024 History of Present illness Narrative [facility] Comprehensive Epilepsy Clinic Reason for Visit: This is a 34 year old female that presents to the Comprehensive Epilepsy Center at [facility] for a follow-up on the care of [...] overall good. She is currently working at [employer] in [place]. She does have difficulty with her short [...] of questions or concerns. Alison Givens DO Multimedia Designer Department of Neurology, Epilepsy Division [facility] I spent approximately 49 minutes reviewing the chart prior to the appointment, in face to face counseling with the patient, and with documentation after the visit. documented in this encounter [facility] 10-05-2024 Instructions Alison Hernandez DO - 10/05/2024 [...] Neuromodulation: Vagus nerve stimulation (VNS) information: https://www.epilepsy.com/treatmen t/devices/gwnao-uhzki-konuvgvwotf -therapy Deep brain stimulation (DBS) information: https://www.epilepsy.com/treatmen t/devices/vtbx-kwnew-aifgudtylrs 4. Schedule your appointment with the epilepsy [...] you can call the Neurology clinic at [phone]. If you have access through [employer]VIVO, you can contact me through that system as well. documented in this encounter [facility] 03-18-2024 Hospital Discharge instructions Patient Education 03/18/2024 [...] nail. This may need to be drained. [phone] [employer]. [address] [place] [address]. All rights reserved. This information is not intended as a substitute for professional medical care. Always follow your healthcare professional's instructions. Follow Up Care 03/18/2024 15:19:27 With:LEIGHTON LEIGH Address: [address] [facility] [facility] [place] [address] [phone] Business (1) When:5-7 days only if needed [facility] 03-18-2024 Note Discharge Instructions Thank you for allowing [facility] to assist you with your healthcare needs. The following is important discharge information regarding your hospital visit. Diagnosis from Today's Visit Thumb contusion What to Do Next Instructions from Your Care Team No qualifying data available. Post Acute Orders No qualifying data available. You Need to Schedule the Following Appointments Follow Up with LEIGHTON LEIGH When:Within 5-7 days, only if needed Where:[address] [facility] [facility] [place] [address] [phone] Business (1) Allergies NKA Medications Please ask [...] nail. This may need to be drained. [phone] [employer]. [address] [place] [address]. All rights reserved. This information is not intended as a substitute for professional medical care. Always follow your healthcare professional's instructions. Additional Information VACCINATE! IT SAVES LIVES! Members of the community who have not yet received the COVID-19 vaccine and would like to receive it can visit one of [facility] vaccine clinics. There are many vaccine clinic locations within the [facility]. For locations and available times, please visit www.gettheshot.coronavirus.[place].g ov/. It is important to note that some COVID mobile vaccine clinics are held outdoors and may be canceled in rainy or stormy conditions. To learn more about pediatric vaccinations (ages 5-11), we invite you to visit the [facility] webpage. https://www.[facility].org/pa ges/8282-Uuanm-Bnmniajjuru-Freque brjr-Ztnnr-Tgpdiiusv.html To learn more about the COVID-19 vaccine, we invite you to visit the CDC website for a list of frequently asked questions. https://www.cdc.gov/coronavirus/2 019-ncov/vaccines/faq.html [facility] Patient Portal Access Instructions: Stay connected with your healthcare team and access your personal medical information anytime with the [facility] Patient Portal. If you would like a full copy of your medical records please contact the [facility] Medical Records Department Wednesday through Wednesday between 8a.m. and 4:30p.m. Please follow the directions below to access the portal: 1.Access the email account you provided upon registration to the hospital.2.Look for an invitation email from [facility].3.Open the email and access the invitation link: Accept Invitation to [facility]4.Fill in the required noguera to create your account. Sign into [email or web address] with your username and password that you [...] you will allow to register on the [facility] Patient Portal for access to your information. You can also access the [facility] Patient Portal on the Oppten. Simply click on Health Records under Health Data and then click on the [employer] logo. HOW TO SAFELY DISPOSE OF PRESCRIPTION [...] Call your local pharmacy or go to http://TennisHub.Indicee/7P0In8l to find one close to you.3.Make use of household items: Use cat litter or old coffee grounds to dispose medications if other options are not available. Mix your drugs with these household products, seal them in an airtight container and throw it into the garbage. Call [facility]: [phone] to be sure your drugs can be [...] aware that I should contact my doctor. Patient/Handle Finisher Signature: Date/Time: Relationship to Patient: ____ Witness Name/Signature: Date/Time: [facility] 03-18-2024 Note ORIGINAL EXAMINATION: THREE XRAY VIEWS [...] Report By: Sorin Segal Electronically signed By Sorni Segal Dictated Date: 03/18/2024 4:04:15 PM Prelim Date: 03/18/2024 4:09:39 PM Sign Date: 03/18/2024 4:09:39 PM Ordering Provider: JENA SWANSON [facility] 02-25-2024 Hospital Discharge instructions Patient Education 02/25/2024 [...] the nail as it heals and regrows. [phone] [employer]. [address] [place] [address], [place] [address]. All rights reserved. This information is not intended as a substitute for professional medical care. Always follow your healthcare professional's instructions. Follow Up Care 02/25/2024 18:03:16 With:LISSA XIE DO Address: [address] [place] [address] [address] [place], [place] [phone] [phone] When:2-4 days With:Follow up with primary care provider Address:Unknown When:2-4 days [facility] 02-25-2024 Emergency department Discharge summary Discharge Instructions Thank you for allowing [facility] to assist you with your healthcare needs. [...] with LISSA XIE DO When:Within 2-4 days Where:[address] [place] [address] [place] [address] [phone] Follow Up with Follow up with primary [...] the nail as it heals and regrows. [phone] [employer]. [address] [place], [place] [address]. All rights reserved. This information is not intended as a substitute for professional medical care. Always follow your healthcare professional's instructions. Additional Information VACCINATE! IT SAVES LIVES! Members of the community who have not yet received the COVID-19 vaccine and would like to receive it can visit one of [facility] vaccine clinics. There are many vaccine clinic locations within the [facility]. For locations and available times, please visit www.gettheshot.coronavirus.[place].g ov/. It is important to note that some COVID mobile vaccine clinics are held outdoors and may be canceled in rainy or stormy conditions. To learn more about pediatric vaccinations (ages 5-11), we invite you to visit the [facility] webpage. https://www.[facility].org/pa ges/9743-Kuobi-Dqfxbhzbdrt-Freque xugl-Hhocb-Tojsezafh.html To learn more about the COVID-19 vaccine, we invite you to visit the CDC website for a list of frequently asked questions. https://www.cdc.gov/coronavirus/2 019-ncov/vaccines/faq.html [facility] Patient Portal Access Instructions: Stay connected with your healthcare team and access your personal medical information anytime with the [facility] Patient Portal. If you would like a full copy of your medical records please contact the [facility] Medical Records Department Wednesday through Wednesday between 8a.m. and 4:30p.m. Please follow the directions below to access the portal: 1.Access the email account you provided upon registration to the [facility].2.Look for an invitation email from [facility].3.Open the email and access the invitation link: Accept Invitation to [facility]4.Fill in the required noguera to create your account. Sign into [email or web address] with your username and password that you [...] you will allow to register on the [facility] Patient Portal for access to your information. You can also access the [facility] Patient Portal on the Oppten. Simply click on Health Records under Health Data and then click on the [employer] logo. HOW TO SAFELY DISPOSE OF PRESCRIPTION [...] Call your local pharmacy or go to http://bit.Indicee/8D4Kk5w to find one close to you.3.Make use of household items: Use cat litter or old coffee grounds to dispose medications if other options are not available. Mix your drugs with these household products, seal them in an airtight container and throw it into the garbage. Call [facility]: [phone] to be sure your drugs can be [...] aware that I should contact my doctor. Patient/Handle Finisher Signature: Date/Time: Relationship to Patient: ____ Witness Name/Signature: Date/Time: [facility] 02-25-2024 Note ORIGINAL EXAMINATION: THREE XRAY VIEWS [...] Interpreted by: Maurisio Naik Preliminary Report By: aMurisio Naik Electronically signed By Maurisio Naik Dictated Date: 02/25/2024 6:43:47 PM Prelim Date: 02/25/2024 6:46:27 PM Sign Date: 02/25/2024 6:46:27 PM Ordering Provider: CARMEN BROWN [facility] 11-14-2023 Hospital Discharge instructions Patient Education 11/14/2023 [...] Boil returns when you are at home [phone] [employer]. [address] [place] [address]. All rights reserved. This information is not intended as a substitute for professional medical care. Always follow your healthcare professional's instructions. Follow Up Care 11/14/2023 17:11:01 With:Call Physician Referral Address:Unknown When:2-4 days [facility] 11-14-2023 Note Discharge Instructions Thank you for allowing [facility] to assist you with your healthcare needs. [...] When Why Instructions Last Dose New acetaminophen-hydrocodone ([place] 325- 5 mg oral tablet) 1 tab(s) [...] Boil returns when you are at home [phone] [employer]. [address] [place] [address]. All rights reserved. This information is not intended as a substitute for professional medical care. Always follow your healthcare professional's instructions. Additional Information VACCINATE! IT SAVES LIVES! Members of the community who have not yet received the COVID-19 vaccine and would like to receive it can visit one of [facility] vaccine clinics. There are many vaccine clinic locations within the [facility]. For locations and available times, please visit www.gettheshot.coronavirus.[place].g ov/. It is important to note that some COVID mobile vaccine clinics are held outdoors and may be canceled in rainy or stormy conditions. To learn more about pediatric vaccinations (ages 5-11), we invite you to visit the [facility] webpage. https://www.[facility].org/pa ges/9901-Msflu-Jjlngzntnwt-Freque rzxp-Eyxth-Eiueylzot.html To learn more about the COVID-19 vaccine, we invite you to visit the CDC website for a list of frequently asked questions. https://www.cdc.gov/coronavirus/2 019-ncov/vaccines/faq.html [facility] Patient [facility] Access Instructions: Stay connected with your healthcare team and access your personal medical information anytime with the [facility] Patient Portal. If you would like a full copy of your medical records please contact the [facility] Medical Records Department Wednesday through Wednesday between 8a.m. and 4:30p.m. Please follow the directions below to access the portal: 1.Access the email account you provided upon registration to the [facility].2.Look for an invitation email from [facility].3.Open the email and access the invitation link: Accept Invitation to [facility]4.Fill in the required noguera to create your [...] you will allow to register on the [facility] Patient Portal for access to your information. You can also access the [facility] Patient Portal on the Oppten. Simply click on Health Records under Health Data and then click on the [employer] logo. HOW TO SAFELY DISPOSE OF PRESCRIPTION [...] Call your local pharmacy or go to [email or web address] to find one close to you.3.Make use of household items: Use cat litter or old coffee grounds to dispose medications if other options are not available. Mix your drugs with these household products, seal them in an airtight container and throw it into the garbage. Call [facility]: [phone] to be sure your drugs can be [...] aware that I should contact my doctor. Patient/Handle Finisher Signature: Date/Time: Relationship to Patient: ____ Witness Name/Signature: Date/Time: [facility] 11-12-2023 Note HNO ID: [id number] Author: JAYLYN CHARLTON PA Service: ? Author Type: Physician Web Production Manager Type: Progress Notes Filed: 11/12/2023 11:14 Note [...] to this plan. She will go to [facility]. [facility] 11-12-2023 History of Present illness Narrative 33-year-old [...] to this plan. She will go to [place] [facility]. documented in this encounter [facility] 10-13-2023 History of Present illness Narrative Images from the original note were not included. Delon Haji was seen in the [facility] at [facility] on 10/13/2023. She is here [...] night at home. Her significant other reports loud snoring after and will sleep for at least [...] Pertinent Seizure History Per Dr Ziegler 12/23/2021: Chief Complaint: This is a 31 y.o. 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 Yes If you have tried 2 or 3 anti-seizure medications and your seizures are still not controlled, are you interested in learning about surgical options for your epilepsy that we can offer at the [facility]? No PHQ9 Depression Screening: No data to [...] kg (188 lb) Height: 1.753 m (5' 9) Body mass index is 27.76 kg/m . General: alert, cooperative, no distress, well-developed, appears stated age Mental status: alert; oriented; good attention Speech/language: fluent; comprehension intact CRANIAL NERVES CN II-XII: grossly intact Motor: Normal bulk and tone. No pronator drift. Strength 5/5 Resting tremor: none noted Reflexes: not tested Coordination: Ncucxh-rt-oezv intact bilaterally. Sensation: not tested Gait: Normal [...] AST 10 11/18/2022 No results found for: TSH, VITB6, THIAMNRBC, B12 Neurodiagnostics: ROUTINE EEG IMPRESSION: This is a normal rEEG in the awake and drowsy states. No seizures orepileptiform discharges were seen. To be discussed with Dr. Ziegler. Carmen Chu MD Neurology, PGY-2 Pager #[phone] Attending Physician Note - Procedure I discussed the indications for this procedure with the resident. I have reviewed and confirm the procedure report as documented in the resident note. MATIAS [place] Multimedia Designer Neurology, Epilepsy Division [facility] Neuroimaging: BRAIN MRI WITHOUT CONTRAST [...] Dispense: 4 Each; Refill: 1 - discussed sick day strategies - if vomiting, unable to keep [...] bathing/swimming, falls/injury prevention, and risk for skin vleazquez. We reviewed seizure first aid, seizure rescue medications and when to call 03-26-. We discussed seizure first aid: Generally speaking, [...] year with her employer. Encouraged use of [employer] to send messages to provider as needed for questions and concerns or can call our clinic @ [phone]. She will return in 3-6 months with epilepsy attending (Dr Givens or Dr Durand) or sooner if clinically indicated. Signed, Tonja Xie MSN, NET TECHNICAL ARCHITECT-WOOD HEEL CEMENTER [facility] Department of Neurology - Epilepsy Division [address] [place] [address] - 7th floor [place] [address] Pager: [phone] Time to complete visit: I spent approximately 38 minutes reviewing the chart prior to the appointment, in face to face counseling with the patient, and with documentation after the visit. Note to patient: The 21st Century Cures Act makes medical notes like these available to patients in the interest of transparency. However, be advised this is a medical document. It is intended as gcjz-xl-wxrn communication. It is written in medical language and may contain abbreviations or verbiage that are unfamiliar. It may appear blunt or direct. Medical documents are intended to carry relevant information, facts as evident, and the clinical opinion of the practitioner. documented in this encounter [facility] 10-13-2023 Instructions FLORIN Cottrell - 10/13/2023 8:20 AM EDT Images from the original note were not included. [employer] CBD Oil, CBD Gummies and Cream Official Site ([employer]) [email or web address] We discussed Vimpat as a second medication [...] persist or become intolerable, please call the [facility] Neurology Clinic at [phone]. If you develop a rash while taking [...] after regular office hours, a neurologist is monogram machine operator for urgent issues. Call the neurology office number ([phone]) to reach the neurologist monogram machine operator if you are continuing to experience many more seizures than usual despite use of your rescue medications. Please try to remember that the neurologist monogram machine operator may not have access to your complete medical record and may not be as familiar with your history. If you have access through [facility] [employer], you can contact us through that system as well. If you have documents that need completed or sent to our clinic, please have them faxed to [phone]. It is always best to call during [...] the refill is ready for you to waste picker. Seizure First Aid Training Can Be Found Here (it's free!): [email or web address].com/course s/mrqrtkc-nrtgq-jxf-cert-ondemand documented in this encounter [facility] 09-27-2023 Note HNO ID: [id number] Author: BECKY JULES PA-C Service: ? Author Type: Physician Web Production Manager Type: Progress Notes Filed: 10/05/2023 09:08 Note Text: Becky Jules PA-C Department of Orthopaedics Orthopaedics [address] [facility] [address] Dept: [phone] Dept September 27, 2023 CHIEF COMPLAINT: New [...] the most painful for her. This is [facility]. ASSESSMENT: S62.652L Closed fracture of tuft of distal phalanx of finger (primary encounter diagnosis) M79.642 Pain of finger of left hand PLAN: [...] tuft of the LEFT 3rd distal phalanx. Facing Slitter: DARREN Transcribe Date/Time: Sep 22 2023 11:32A [...] daily. (Patient not taking: Reported on 03/03/2019) Hmyemmgu-Uj-Obj-Fe-FA tab (more content not included)... [facility] 09-27-2023 History of Present illness Narrative Becky Jules PA-C Department of Orthopaedics Orthopaedics [address] [place] [address] Dept: [phone] Dept September 27, 2023 CHIEF COMPLAINT: New [...] the most painful for her. This is [facility]. ASSESSMENT: No diagnosis found. PLAN: She has [...] tuft of the LEFT 3rd distal phalanx. Facing Slitter: DARREN Transcribe Date/Time: Sep 22 2023 11:32A [...] daily. (Patient not taking: Reported on 03/03/2019) Krjsecue-Gr-Zmt-Fe-FA tab Take 1 tablet by mouth once [...] anxiety) This note was partially generated using [employer] voice recognition system, and there may be [...] home for pain. documented in this encounter [facility] 09-27-2023 Note HNO ID: [id number] Author: GIULIANA BIRD RN Service: ? Author [...] taking anything else at home for pain. [facility] 09-27-2023 Note HNO ID: [id number] Author: VIET ESPARZA DO Service: ? Author Type: Physician Type: Progress Notes Filed: 09/27/2023 08:56 Note Text: opened in error no charge, visit rescheduled. [facility] 09-27-2023 History of Present illness Narrative opened in error no charge, visit rescheduled. documented in this encounter [facility] 09-27-2023 Instructions Viet Esparza V, DO - 09/27/2023 8:56 AM EST opened in error- documented in this encounter [facility] 09-22-2023 Instructions Meg Ortez APRN.CNP - 09/22/2023 11:47 AM EST R.I.C.E. The general care of your injury includes the following: Resting, Icing, Compressing and Elevating the injured area. Remember this as RICE. REST: Limit the use of the injured [...] when lying down. documented in this encounter [facility] 09-22-2023 History of Present illness Narrative Radiology Service Progress Note PATIENT NAME: Delon Hjai DATE OF SERVICE: September 22, 2023 TIME: [...] PATIENT PRESENTS WITH AN IMPLANTABLE OR ATTACHED RESEARCH COMPLIANCE SPECIALIST: No RADIOLOGY DEPARTMENT: General X-ray: Exam(s) Completed: Upper Extremity X-Ray(s): Fingers/Thumb, left PERIPHERAL IV DATA: Not applicable SIGNED BY: RT Jimmy(R) September 22, 2023 11:23 AM documented in this encounter [facility] 09-22-2023 Note HNO ID: [id number] Author: CRISTINA MEJIAS RT(R) Service: Radiology Author [...] PATIENT PRESENTS WITH AN IMPLANTABLE OR ATTACHED RESEARCH COMPLIANCE SPECIALIST: No RADIOLOGY DEPARTMENT: General X-ray: Exam(s) Completed: Upper Extremity X-Ray(s): Fingers/Thumb, left PERIPHERAL IV DATA: Not applicable SIGNED BY: RT Jimmy(R) September 22, 2023 11:23 AM [facility] 09-22-2023 Note HNO ID: [id number] Author: MEG ORTEZ APRN.WOOD HEEL CEMENTER Service: ? Author Type: Nurse Practitioner Type: Progress Notes Filed: 09/22/2023 12:02 Note Text: This note was created using NoteWriter. Subjective Delon Haji is a 33 year [...] history is provided by the patient. No sign language translator was used. Musculoskeletal Problem This is a [...] daily. (Patient not taking: Reported on 03/03/2019) Bwvcmjyj-Ka-Qav-Fe-FA tab Take 1 tablet by mouth once [...] ear normal. Left (more content not included)... [facility] 09-22-2023 History of Present illness Narrative This note was created using Multistatriter. Subjective Delon Haji is a 33 year [...] history is provided by the patient. No sign language translator was used. Musculoskeletal Problem This is a [...] daily. (Patient not taking: Reported on 03/03/2019) Lylcebwj-Cz-Nhm-Fe-FA tab Take 1 tablet by mouth once [...] RX Keflex F/U with hand Meg Ortez APRN.WOOD HEEL CEMENTER documented in this encounter [facility] 08-21-2023 Hospital Discharge instructions Patient Education 08/21/2023 [...] has sustained an injury during the seizure. 7232-9061 [employer]. [address] [place] [address]. All rights reserved. This information is not intended as a substitute for professional medical care. Always follow your healthcare professional's instructions. Follow Up Care 08/21/2023 12:44:12 With:[facility] neurology Address: When:2-4 days With:Follow up with primary care provider Address:Unknown When:2-4 days With:Call Physician Referral Address:Unknown When:2-4 days [facility] 08-21-2023 Emergency department Discharge summary Discharge Instructions Thank you for allowing [facility] to assist you with your healthcare needs. [...] Schedule the Following Appointments Follow Up with [facility] neurology When Within 2-4 days Where: Follow [...] has sustained an injury during the seizure. 0590-0945 [employer]. [address] [place] [address]998. All rights reserved. This information is not intended as a substitute for professional medical care. Always follow your healthcare professional's instructions. Additional Information VACCINATE! IT SAVES LIVES! Members of the community who have not yet received the COVID-19 vaccine and would like to receive it can visit one of [facility] vaccine clinics. There are many vaccine clinic locations within the [facility]. For locations and available times, please visit [email or web address] [email or web address] It is important to note that some COVID mobile vaccine clinics are held outdoors and may be canceled in rainy or stormy conditions. To learn more about pediatric vaccinations (ages 5-11), we invite you to visit the [facility] webpage. [email or web address]://[email or web address]/pa chris/1382-Hkqkx-Plzydcatggw-Freque bqua-Qntpz-Aboaucmxx.html To learn more about the COVID-19 vaccine, we invite you to visit the CDC website for a list of frequently asked questions. https://www.cdc.gov/coronavirus/2 019-ncov/vaccines/faq.html [facility] Patient Portal Access Instructions: Stay connected with your healthcare team and access your personal medical information anytime with the [facility] Patient Portal. If you would like a full copy of your medical records please contact the [facility] Medical Records Department Wednesday through Wednesday between 8a.m. and 4:30p.m. Please follow the directions below to access the portal: 1.Access the email account you provided upon registration to the [facility].2.Look for an invitation email from [facility].3.Open the email and access the invitation link: Accept Invitation to [facility]4.Fill in the required noguera to create your account. Sign into [email or web address] with your username and password that you [...] you will allow to register on the [facility] Patient Portal for access to your information. You can also access the [facility] Patient Portal on the Oppten. Simply click on Health Records under Health Data and then click on the KidStart logo. HOW TO SAFELY DISPOSE OF PRESCRIPTION [...] Call your local pharmacy or go to [email or web address] to find one close to you.3.Make use of household items: Use cat litter or old coffee grounds to dispose medications if other options are not available. Mix your drugs with these household products, seal them in an airtight container and throw it into the garbage. Call [facility]: [phone] to be sure your drugs can be [...] aware that I should contact my doctor. Patient/Handle Finisher Signature: Date/Time: Relationship to Patient: ____ Witness Name/Signature: Date/Time: [facility] 08-21-2023 Note Sinus rhythm EKG interpretation is noted and agreed to in [employer]. The interpretation of this patient's EKG contributed directly to the care and management of this patient. Electronic Signature: JACOB MARTÍNEZ DO 08/21/2023 14:34:37 [facility] 08-21-2023 Note ORIGINAL EXAMINATION: CT OF THE [...] 08/21/2023 2:08:47 PM Ordering Provider: JACOB MARTÍNEZ [facility] 08-21-2023 Evaluation + Plan note Diagnostic Tests PendingLamotrigine (Lamictal), Serum 08/21/23 [facility] 03-24-2023 Note HNO ID: [id number] Author: Ginette Wasserman PA-C Service: ? Author Type: Physician Web Production Manager Type: Progress Notes Filed: 03/24/2023 1:00 PM Note Text: HISTORY AND PHYSICAL Delon Haji 1990 REFERRING PHYSICIAN: No ref. provider found CHIEF COMPLAINT: left thigh abscess HPI: Delon is a 32 year old female with a complaint of a painful abscess on the left posterior thigh x 2 days. Denies fever or chills. The patient was seen in [facility] and was started on oral antibiotics. SIGNIFICANT [...] taking: Reported on 03/03/2019) 30 capsule 1 Idvhywqa-Ar-Sws-Fe-FA tab Take 1 tablet by mouth once [...] ?C (98.4 ?F), height 175.3 cm (5' 9), weight 83.3 kg (183 lb 9.6 oz), [...] is instructed to (more content not included)... [facility] 03-24-2023 History of Present illness Narrative HISTORY AND PHYSICAL Delon Haji 1990 REFERRING PHYSICIAN: No ref. provider found CHIEF COMPLAINT: left thigh abscess HPI: Delon is a 32 year old female with a complaint of a painful abscess on the left posterior thigh x 2 days. Denies fever or chills. The patient was seen in [facility] and was started on oral antibiotics. SIGNIFICANT [...] taking: Reported on 03/03/2019) 30 capsule 1 Intecycm-Yj-Wts-Fe-FA tab Take 1 tablet by mouth once [...] C (98.4 F), height 175.3 cm (5' 9), weight 83.3 kg (183 lb 9.6 oz), [...] Cheryl Arizmendi RN documented in this encounter [facility] 03-12-2023 Instructions Cheryl Arizmendi RN - 03/12/2023 3:50 PM EDT The following instructions are important for you related to your office visit today with the [facility] General Surgeons. Instructions After ABSCESS [...] you should contact our office immediately @ [phone] and ask to be transferred to the General Surgery department. documented in this encounter [facility] 03-12-2023 Note HNO ID: [id number] Author: Cheryl Arizmendi RN Service: ? Author [...] Visit completed when applicable. Cheryl Arizmendi RN [facility] 03-12-2023 Nurse Note REVIEW OF SYSTEMS: General: [...] Tequila Barry LPN documented in this encounter [facility] 03-11-2023 Note HNO ID: [id number] Author: Davina Thomas APRN.WOOD HEEL CEMENTER Service: ? Author Type: Nurse Practitioner Type: [...] daily. (Patient not taking: Reported on 03/03/2019) Nijymvdt-Gg-Fof-Fe-FA tab Take 1 tablet by mouth once [...] - CONSULT TO GENERAL SURGERY Davina Thomas APRN.WOOD HEEL CEMENTER [facility] 03-11-2023 History of Present illness Narrative Images [...] daily. (Patient not taking: Reported on 03/03/2019) Szggvrfg-Vb-Rmx-Fe-FA tab Take 1 tablet by mouth once [...] - CONSULT TO GENERAL SURGERY Davina Thomas APRN.WOOD HEEL CEMENTER documented in this encounter [facility] 06-01-2022 Telephone encounter Note Medication Access Team coordinated the following: [facility] Clinics: MS/Neurology Prior Authorization Per the patient's insurance provider, [facility], the prior authorization for Lamotrigine 300mg SR (on-label) was approved. Authorization number: [id number] Authorization start date: 05/27/22 Authorization end date: 05/26/23 Non-Specialty Prescriptions: 1, 6-8 min Bettye Jacques [facility] 06-01-2022 Miscellaneous Notes Medication Access Team coordinated the following: [facility] Clinics: MS/Neurology Prior Authorization Per the patient's insurance provider, [employer], the prior authorization for Lamotrigine 300mg SR (on-label) was approved. Authorization number: [id number] Authorization start date: 05/27/22 Authorization end date: 05/26/23 Non-Specialty Prescriptions: 1, 6-8 min Bettye Jacques Felix Sanchez rep Lamotrigine PA is still under review documented in this encounter [facility] 05-29-2022 Telephone encounter Note Per Laura rep Lamotrigine PA is still under review [facility] 10-21-2021 Hospital Discharge instructions Patient Education 10/21/2021 17:36:00 Vomiting (Adult) Vomiting (Adult) Vomiting is a common symptom that may be due to different causes. These include gastroenteritis (stomach flu), food poisoning and gastritis. There are other [...] and water are not available, use alcohol-based home service technician to keep from spreading the infection to [...] Yellow color of the eyes or skin 3946-1253 [employer]. [address] [place] [address]. All rights reserved. This information is not intended as a substitute for professional medical care. Always follow your healthcare professional's instructions. Follow Up Care 10/21/2021 16:21:25 With:Call Physician Referral Address:Unknown When:2-4 days [facility] 09-19-2018 History of Past i llness Narrative [...] of this encounter (statuses as of 03/11/2023) [facility] History of Past illness Narrative* Problem Noted [...] of this encounter (statuses as of 03/24/2023) [facility] of Past illness Narrative* Problem Noted [...] of this encounter (statuses as of 09/22/2023) [facility] History of Past illness Narrative* Problem Noted Date Diagnosed Date Resolved Date IUGR (intrauterine growth re striction) affecting care of mother, third trimester, fetus 1 09/19/2018 12/13/2018 Dichorionic diamniotic twin , antepartum 05/19/2018 12/13/2018 Overview: 09/16/18 - twice weekly BPPs & NST at least once per week () - Nikujn Tate MD IUGR of baby A: Twice [...] of this encounter (statuses as of 09/27/2023) [facility] History of Past illness Narrative* Problem Noted [...] of this encounter (statuses as of 09/27/2023) [facility] of Past illness Narrative* Problem Noted [...] and to get an update from neuro. SW 05/26/18 - has appt with on 07/15/18. Nikunj Tate MD 05/19/18 - not on medication, needs to see neurology (patient plans to make her own appt) - Nikunj Tate MD Encounter for supervision of other normal 09/07/2014 05/19/2018 documented as of this encounter (statuses as of 11/12/2023) [facility] note No data available for this section [facility] Evaluation note* Diagnosis Seizure Other convulsions [facility] Diagnosis Cutaneous abscess of buttock- Primary Cellulitis and abscess of buttock [facility] Abscess of left thigh- Primary Cellulitis and abscess of leg, except foot [facility] Injury of finger of left hand, initial encounter- Primary Closed fracture of tuft of distal phalanx of finger Closed fracture of distal phalanx or phalanges of hand Subungual hematoma of finger, initial encounter [facility] Injury of finger of left hand, initial encounter Closed fracture of tuft of distal phalanx of finger Closed fracture of distal phalanx or phalanges of hand [facility] Closed fracture of tuft of distal phalanx of finger- Primary Closed fracture of distal phalanx or phalanges of hand Pain of finger of left hand Pain in limb [facility] Diagnosis Nonintractable epilepsy without status epilepticus, unspecified epilepsy type- Primary [facility] Diagnosis Procedure not carried out- Primary Procedure not carried out for other reasons [facility] Diagnosis Closed fracture of tuft of distal phalanx of finger- Primary Closed fracture of distal phalanx or phalanges of hand [facility] Injury of finger of left hand, initial encounter [facility] Diagnosis Local-rel symptc epi w cmplx prt seiz,not ntrct,w/o stat epi- Primary [facility] No data available for this section [facility] Reason for referral (narrative)* Diagnostic Procedure Only (Routine) - Pending Review Specialty Diagnoses / Procedures Referred By Contac t Referred To Contact XR IMAGING Diagnoses Closed fracture of tuft of distal phalanx of finger Procedures XR DIGIT GENERAL 3V FRONTAL/LAT/OBL LEFT RADEX FINGR MINIMUM 2 VIEWS Becky Jules PA-C [address] [place] [address] [place] [id number] Referral ID Status Reason Start Date Expiration Date Visits Requested Visits Authorized [id number] Pending Review Auto-Generat ed Referral 12/08/2023 01/06/2025 1 1 [facility] for referral (narrative)* Diagnostic Procedure Only (Urgent) - Closed Specialty Diagnoses / Procedures Referred By Contac t Referred To Contact XR IMAGING Diagnoses Injury of finger of left hand, initial encounter Procedures XR DIGIT GENERAL 3V FRONTAL/LAT/OBL LEFT RADEX FINGR MINIMUM 2 VIEWS Meg Ortez APRN.[employer] [address] [place] [address] [place] [address] Referral ID Status Reason Start Date Expiration Date V isits Requested Visits Authorized [id number] Closed Auto-Generate d Referral 09/22/2023 10/21/2024 1 1 [facility] for visit Narrative* Diagnostic Procedure Only (Urgent) - Closed Specialty Diagnoses / Procedures Referred By Contac t Referred To Contact XR IMAGING Diagnoses Injury of finger of left hand, initial encounter Procedures XR DIGIT GENERAL 3V FRONTAL/LAT/OBL LEFT RADEX FINGR MINIMUM 2 VIEWS Meg Ortez APRN.CNP [address] [place] [address] [place] [address] Referral ID Status Reason Start Date Expiration Date V isits Requested Visits Authorized [id number] Closed Auto-Generate d Referral 09/22/2023 10/21/2024 1 1 [facility] Reason for Referral Specialty Diagnoses / Procedures Referred By Contac t Referred To Contact Orthopedics Diagnoses Injury of finger of left hand, initial encounter Closed fracture of tuft of distal phalanx of finger Procedures CONSULT TO ORTHOPAEDICS OFFICE/OUTPATIENT [facility] 60 MINUTES Meg Ortez, NET TECHNICAL ARCHITECT.[employer] [address] [place] [address] Referral ID Status Reason Start Date Expiration Date Visits Requested Visits Authorized [id number] Authorized PCP Requested Referral 09/22/2023 09/21/2024 1 1 Specialty Diagnoses / Procedures Referred By Contac t Referred To Contact XR IMAGING Diagnoses Injury of finger of left hand, initial encounter Procedures XR DIGIT GENERAL 3V FRONTAL/LAT/OBL LEFT RADEX FINGR MINIMUM 2 VIEWS Meg Ortez, NET TECHNICAL ARCHITECT.[employer] [address] [place] [address] [place] [address] Referral ID Status Reason Start Date Expiration Date V isits Requested Visits Authorized [id number] Closed Auto-Generate d Referral 09/22/2023 10/21/2024 1 1 Specialty Diagnoses / Procedures Referred By Contac t Referred To Contact General Surgery Diagnoses Cutaneous abscess of buttock Procedures CONSULT TO GENERAL SURGERY OFFICE/OUTPATIENT [facility] 60-74 MINUTES Davina Thomas, NET TECHNICAL ARCHITECT.[employer] [address] [place] [address] Referral ID Status Reason Start Date Expiration Date Visits Requested Visits Authorized [id number] Authorized PCP Requested Referral 03/11/2023 03/10/2024 1 1 Specialty Diagnoses / Procedures Referred By Contac t Referred To Contact Diagnoses Seizure Procedures MRI BRAIN WITHOUT CONTRAST [place] MRI BRAIN Nery Ziegler, CARMENBS [address] [place] [address] Referral ID Status Reason Start Date Expiration Date Visits Re quested Visits Authorized [id number] Closed 12/23/2021 01/17/2023 1 1 Summary Purpose [...] Care Team (unrecognized sect ion and content) Chain Sales Representative Relationship Specialty Start Date End Date Nery Ziegler MBBS [address] [place] [phone] PCP - General Neurology 07/26/21 Chain Sales Representative Relationship Specialty Start Date End Date Tonja Xie APRN-[employer] [address] [phone] Nurse Practitioner Neurology 02/24/22 [facility] [address] [place] [phone] 02/24/22 Chain Sales Representative Relationship Specialty Start Date End Date Tonja Xie APRN-[employer] [address] [phone] Nurse Practitioner Neurology 02/24/22 [facility] [address] [address] 02/24/22 Chain Sales Representative Relationship Specialty Start Date End Date Tonja Xie APRN-[employer] [address] [phone] Nurse Practitioner Neurology 02/24/22 [facility] [place] [facility] [address] [id number] 02/24/22 Reason for Visit (unrecogniz ed section and content) Reason Comments New Middle finger Fracture Middle finger Specialty Diagnoses / Procedures Referred By Contac t Referred To Contact Orthopedics Diagnoses Injury of finger of left hand, initial encounter Closed fracture of tuft of distal phalanx of finger Procedures CONSULT TO ORTHOPAEDICS OFFICE/OUTPATIENT [facility] 60 MINUTES Meg Ortez, ALEXANDER.WO[employer] HE[employer] C[employer]ER [address] [place] [address] [facility] [address] [place] [address] Referral ID Status Reason Start Date Expiration Date V isits Requested Visits Authorized [id number] Closed PCP Requested Referral 09/22/2023 09/21/2024 1 1 Specialty Diagnoses / Procedures Referred By Huber ernandez Referred To Contact Diagnoses Seizure Procedures MRI BRAIN WITHOUT CONTRAST [place] MRI BRAIN Nery Ziegler MBBS [address] [place] [address] Referral ID Status Reason Start Date Expiration Date Visits Re quested Visits Authorized [id number] Closed 12/23/2021 01/17/2023 1 1 Reason Onset [...] section and content) DATE CREATED AUTHOR 04/04/2022 [facility] DATE CREATED AUTHOR AUTHOR'S ORGANIZ ATION 01/10/2024 [facility] DATE CREATED AUTHOR AUTHOR'S ORGANIZ ATION 01/13/2024 [facility] DATE CREATED AUTHOR AUTHOR'S ORGANIZ ATION 03/22/2024 [facility] ([place]) DATE CREATED AUTHOR AUTHOR'S ORGANIZ ATION 01/02/2025 [facility] DATE CREATED AUTHOR AUTHOR'S ENOC ATDARIAN 01/14/2025 [facility] Source Comments (unrecognize d section and content) In the event this informatio n is protected by the Federal Confidentiality of Alcohol and Drug Abuse Patient Records regulations: The Federal rules restrict any use of the information to criminally investigate or prosecute any alcohol or drug abuse patient.[facility] the event this information is protected by the Federal Confidentiality of Alcohol and Drug Abuse Patient Records regulations: The Federal rules restrict any use of the information to criminally investigate or prosecute any alcohol or drug abuse patient.[facility] the event this information is protected by the Federal Confidentiality of Alcohol and Drug Abuse Patient Records regulations: The Federal rules restrict any use of the information to criminally investigate or prosecute any alcohol or drug abuse patient.[facility] the event this information is protected by the Federal Confidentiality of Alcohol and Drug Abuse Patient Records regulations: The Federal rules restrict any use of the information to criminally investigate or prosecute any alcohol or drug abuse patient.[facility] the event this information is protected by the Federal Confidentiality of Alcohol and Drug Abuse Patient Records regulations: The Federal rules restrict any use of the information to criminally investigate or prosecute any alcohol or drug abuse patient.[facility] the event this information is protected by the Federal Confidentiality of Alcohol and Drug Abuse Patient Records regulations: The Federal rules restrict any use of the information to criminally investigate or prosecute any alcohol or drug abuse patient.[facility] the event this information is protected by the Federal Confidentiality of Alcohol and Drug Abuse Patient Records regulations: The Federal rules restrict any use of the information to criminally investigate or prosecute any alcohol or drug abuse patient.[facility] the event this information is protected by the Federal Confidentiality of Alcohol and Drug Abuse Patient Records regulations: The Federal rules restrict any use of the information to criminally investigate or prosecute any alcohol or drug abuse patient.[facility] FOR RECORDS PERTAINING TO PATIENTS WHO ARE [...] BE BASED ON THE PRIMARY CLINICAL RECORDS. [facility]. provides no warranty or guarantee of the accuracy or completeness of information in this document.
[2025-01-14] MEDS: Acetaminophen 325 MG Tablet 650 MG PO (13:03)
[2025-01-14] MEDS: Lidocaine 5% Patch 1 PATCH TOPICAL (13:03)
[2025-01-14] MEDS: oxyCODONE 5 MG Tablet PO (13:03)
[2025-01-14] MEDS: Orphenadrine 100 MG Tablet PO (13:03)
[2025-01-14] MEDS: Ibuprofen 200 MG Tablet 400 MG PO (13:03)
[2025-01-14 13:57] VITALS: BP 128/72; PULSE 97; RESP 16; TEMP 36.9; O2SAT 97
== END 2025-01-14 14:04 | disposition home or self-care (01) ==
PROVIDERS: Emergency Provider Emergency Medicine; Visit Provider Emergency Medicine
DX: M54.50 Low back pain, unspecified (principal); F17.200 Nicotine dependence, unspecified, uncomplicated
CPT/HCPCS: 99283

== ENCOUNTER 2025-02-18 17:33 | Emergency (ER) | payer MEDICAID, SELFPAY ==
[2025-02-18 17:33] VITALS: BP 142/83; PULSE 107; RESP 16; TEMP 36.6; O2SAT 100; BMI 32.8
--- OUTSIDE RECORDS SUMMARY | 2025-02-18 18:04 | XMS RPT_ITS | CCD ---
Author Organization [facility] Care Team Providers Care Broadband Technician Name Role Phone PHYSICIAN, NOT RECORDED Primary Care Physician U nicole SALCEDO, Nery Morgan Primary Care Provider Rojas BURIAL VAULT DELIVERER AND INSTALLER-INTERLOCKER MAINTAINER, Crystal G [employer]available [employer], [place] [facility] Unavailable Unavailable Primary Care Provider Unavailabl e Rojas BURIAL VAULT DELIVERER AND INSTALLER-INTERLOCKER MAINTAINER, Crystal G [employer], [place] [facility] Unavailable PHYSICIAN, NONE Primary Care Physician Unavailab le Unavailable Primary Care Provider UnavailGINETTE Pineda Attending Unavailable MEG ORTEZ Referring Unavailable BECKY FLOR Attending Unavailable VIET ESPARZA Attending Unavailable MEG [...] SELF Referring Unavailable ALISON THAKKAR Attending Unavailable Care Physician, No Primary Primary Care Unava ilable Edwin Dumont Attending Unavailable Caro Chavez Admitting Unavailable Caro Chavez Consulting Unavailable Edwin Dumont Consulting Unavailable Olaf Astudillo Attending Unavailable Care Physician, No Primary Primary Care Unava ilable Alison Givens Attending Unavailable Alison Givens Referring Unavailable Care Physician, No Primary Primary Care Unava ilable Care Physician, No Primary Primary Care Unava ilable Jack Snadoval Attending Unavailable Care Physician, No Primary Primary Care Unava ilable Maurisio Richards Attending Unavailable Care Physician, No Primary Primary Care Unava ilable Bradley Leach Attending Unavailable Edwin Dumont Attending Unavailable Care Physician, No Primary Primary Care Unava ilable Caro Chavez L Admitting Unavailable Caro Chavez L Consulting Unavailable Care Physician, No Primary Primary Care Unava ilable Edvin Barrett Attending Unavailabl e Caro Chavez L Attending Unavailable Allergies Allergy Classification Reported Allergen(s) Allergy Type Date of Onset Reaction(s) Facility (11 sources) tomato allergenic extract; Translations: [TOMATO] Drug Allergy 2 GI [facility] (4 sources) Cephalexin; Translations: [CEPHALEXIN] Drug Allergy 4 [facility] Work Phone: (1 source) + MRSA Wound; Translations: [+ MRSA Wound] Propensity to adverse reactions (disorder) [facility] Repository Medications Current Medications Medication Drug Class(es) Dates Sig (Normalized) Sig (Original) acetaminophen 325 mg / HYDROcodone bitartrate 5 mg oral tablet (1 source) Opioid Agonist Start: 11-14-2023 End: 11-17-2023 take 1 tablet by mouth every six hours as needed for pain [place] 325- 5 mg oral tablet Dose = [...] Comment on above: Take 1 capsule by [facility] four times daily for 5 days. [...] Start: 01-31-2019 take 2 tablets by mo [facility] once daily levETIRAcetam (KEPPRA) 750 mg tablet Take 2 tablets by mouth once daily. 3 01/31/2019 Active levetiracetam (K EPPRA ORAL) Take by mouth. Active levetiracetam (K EPPRA ORAL) Take by mouth. 0 Active Comment on above: Take by mouth. Take 1 tablet by ramos daily at bedtime. Take 2 tablets by mo [facility] once daily. metoclopramide 10 mg oral tablet [...] Comment on above: Take 1 capsule by [facility] once daily. penicillin v potassium 500 mg oral tablet (8 sources) Start: 03-01-20 19 take 1 tablet by mouth four times daily penicillin V potassium (V-CILLIN, VEETIDS) 500 mg tablet Take 1 tablet by mouth four times daily. 0 03/01/2019 Active Comment on above: Take 1 tablet by ramos four times daily. Tpexyiac-Ro-Mri-Fe-FA tab (8 sources) Start: 10-04-19 19 take 1 tablet by mouth once daily Ivnamrpm-Dn-Tpl-F e-FA tab Indications: 31 weeks gestation of [...] Other nervous system disorders (1 source) H/O: MANAGER OF DEVELOPMENT disorder; Translations: [Personal history of other diseases [...] Onset: 03-18-2024 09-22-2023 Episodic Unclassified (1 source) Low back pain, unspecified; Translations: [Low back pain, unspecified] Onset: 01-18-2025 Unclassified (1 source) Alcohol abuse with withdrawal, [...] Test Name Value Interpretation Reference Range Facility Lamotrigine (Lamictal) Level on 01-15-2025 LAMOTRIGINE 7.6 ug/mL Normal 2.0-20.0 [facility] Comment on above: Result Comment: Dete ction Limit = 1.0 Performed at: [facility] Lab[address] [id number] Hvac Sheet Metal Installer: Jyoti Dailey MD, Phone: [phone] Performed By: #### L 501.8342, X181.9900 #### [facility] [address] [facility] [place], [address] Emergency Department Summary on 01-14-2025 Emergency Department Summary [facility] Medical Records Department [address] [address] Emergency Department Summary 01/14/25 MR#: [id number] Acct: [id number] Name: DELON HAJI MILTON Rep #: [id number] : 1990 34 From: Jack Sandoval DO PCP: Care Physician,No Primary Status:DEP ER Location: ED HPI History of Present Illness Chief Complaint: Back PFSH PFSH Medical History IUD (intrauterine device) in place Alcohol abuse Obesity Anxiety and depression History of chlamydia infection Tobacco use History of pre-term labor History of substance abuse Seizure disorder Home Medications ???Medication ???Instructions ???Recorded ???Last Taken ???Type lamotrigine 200 mg tablet,extended 800 mg PO 1700 11/10/24 11/29/24 History release 24 hr multivitamin (Daily Multi-Vitamin 1 tab PO DAILY 01/10/25 Unknown H istory tablet) orphenadrine citrate 100 mg 100 mg PO BID 7 days #14 tabs 12/25 09/19 Unknown Rx tablet,extended release prednisone 20 mg tablet 20 mg PO DAILY 5 days #5 tabs 12/25 09/19 Unknown Rx Allergy/AdvReac Type Severity Reaction Status Date / Time tomato AdvReac Vomiting Verified 01/14/25 12:02 Family History Father Alcohol abuse Cataract Mother [...] daily EXAM Physical Exam Const Vital Signs: 01/14/25 12:02 01/14/25 13:57 Temperature 98.5 F 98.5 F Temperature Source Oral Pulse Rate 97 97 Respiratory Rate 16 16 Blood Pressure 128/72 H 128/72 H Blood Pressure Mean 90 90 Pulse Ox 97 97 Oxygen Delivery Method Room Air MDM MDM MDM Narrative Medical decision making narrative: HISTORY OF PRESENT ILLNESS: 34-year-old female presents with acute onset of lower back pain. States this began last night. No inciting injury. No urinary complaints. Denies abdominal pain or syncope. Patient denies any saddle anesthesia, urinary tension, bowel or bladder incontinence, lower extremity weakness, fever or IV drug use, no recent spinal manipulation or surgery, no recent urinary catheterization. REVIEW OF SYSTEMS: All other systems reviewed and are negative except as noted in the history of present illness. At least 10 review of systems reviewed and are negative except as noted in history of present illness. PHYSICAL EXAM: Nursing triage notes reviewed, Vital signs reviewed Constitutional: please see mdm Lungs: Clear to auscultation, No wheezing or rales. No increased work of breathing, no conversational dyspnea, no accessory muscle use, no nasal flaring. No respiratory distress noted Heart: Regular rate and rhythm, No murmurs, No rubs and No gallops, 2+ distal pulses (radial, femoral, posterior tibial) in all extremities Abdomen: Soft, there is no tenderness, rigidity, rebound or guarding, no obvious peritoneal signs, no palpable pulsatile abdominal masses, no auscultated abdominal bruit : No CVAT Extremities: No edema Back: No midline step-offs or deformities, TTP over left lateral lumbar spine Neuro: Intact sensation L1-S1 dermatomal distributions. Intact 5/5 strength in hip flexion (T12-L3). Knee extension (L2-L4). Ankle dorsiflexion (L4-L5). Ankle plantar flexion (S1). Great toe extension (L5). 2+ patellar and Achilles DTRs. Skin: No rash or lesions noted MEDICAL DECISION MAKING: Chief Complaint: Back pain External records reviewed: Reviewed prior imaging studies: Reviewed MRI of the lumbar spine from 2019 which showed no fracture malalignment, no disc herniation, there are degenerative disc and facet changes Factors affecting care: Lumbar disc herniation Social determinants of health: No IV drug use History obtained from others: none Consults: none ALL IMAGES (IF OBTAINED) HAVE BEEN PERSONALLY REVIEWED AND INTERPRETED BY MYSELF. [facility] Narrative: Patient was initially hemodynamically stable, afebrile and nontoxic appearing. Exam without focal neurologic deficits in the lower extremities. No urinary complaints. I considered the following differential diagnosis: Musculoskeletal back pain, space-occupying lesion of the spinal (epidural abscess, epidural hematoma), cauda equina, c (more content not included)... Normal [facility] Basic Metabolic Profile (BMP )on 01-10-2025 BUN/CRE 8.4 RATIO Low 10-20 [facility] Comment on above: Performed By: #### L 501.5200, L501.2300 #### [facility] [address] [place], [address] Calcium [Mass/Vol] 9.7 mg/dL Normal 7.6-11.0 [facility] Comment on above: Performed By: #### L 501.5200, L501.2300 #### [facility] [address] [place], [address] Chloride [Moles/Vol] 103 mmol/L Normal 98-108 [facility] Comment on above: Performed By: #### L 501.5200, L501.2300 #### [facility] [address] [place], [address] CO2 [Moles/Vol] 20.5 mmol/L Low 21.0-32.0 [facility] Comment on above: Performed By: #### L 501.5200, L501.2300 #### [facility] [address] [place], [address] Creatinine [Mass/Vol] 0.87 mg/dL Normal 0.70-1.20 [facility] Comment on above: Performed By: #### L 501.5200, L501.2300 #### [facility] [address] [place], [address] ECRCL 114.91 ml/min Normal 50-250 [facility] Comment on above: Performed By: #### L 501.5200, L501.2300 #### [facility] [address] [place], [address] GAP 14 Normal 5-15 [facility] Comment on above: Performed By: #### L 501.5200, L501.2300 #### [facility] [address] [place], [address] GFR/1.73 sq M.predicted among non-blacks MDRD (S/P/Bld) [Vol rate/Area] 90 mL/min/{1.73_m2} Normal >60 [facility] Comment on above: Result Comment: mL/m in/1.73m2 CKD-EPI Creatinine Equation (2020) Performed By: #### L 501.5200, L501.2300 #### [facility] [address] [place], [address] Glucose [Mass/Vol] 88 mg/dL Normal 70-99 [facility] Comment on above: Performed By: #### L 501.5200, L501.2300 #### [facility] [address] [place], [address] Potassium [Moles/Vol] 4.4 mmol/L Normal 3.3-5.1 [facility] Comment on above: Result Comment: Hemo lysis present, Results??could be affected. ?? Performed By: #### L 501.5200, L501.2300 #### [facility] [address] [place], [address] Sodium [Moles/Vol] 137 mmol/L Normal 133-145 [facility] Comment on above: Performed By: #### L 501.5200, L501.2300 #### [facility] [address] [place], [address] Urea nitrogen [Mass/Vol] 7 mg/dL Normal 4-19 [facility] Comment on above: Performed By: #### L 501.5200, L501.2300 #### [facility] [address] [place], [address] Emergency Department Summary on 01-10-2025 Emergency Department Summary [facility] Medical Records Department [address] [place] [address] Emergency Department Summary 01/10/25 MR#: [id number] Acct: [id number] Name: DELON HAJI MILTON Rep #: [id number] : 1990 34 From: Olaf Astudillo MD PCP: Care Physician,No Primary Status:REG ER [...] is seen by a neurologist through the [facility]. She is present on Lamictal. Her other [...] symptoms: Yes Recent Illness/Hospitalizatio n: No PFSH PFSH Medical History IUD (intrauterine device) in place [...] icterus Neck (more content not included)... Normal [place] [address] Lead EKGon 01-01-2025 12 Lead EKG [facility] Cardiovascular Services [address] [address] 12 Lead EKG 01/01/25902 MR#: [id number] Acct: [id number] Name: DELON HAJI Rep #: [id number] : 1990 34 From: Alberto Hummel MD [...] Normal ECG Confirmed by Alberto Hummel ([id number]), assistant editor FILIPPO GUEVARA ([id number]) on 01/02/2025 6:14:23 AM Referred By: YARY Confirmed By: Alberto Hummel 01/02/25 0614 Date Alberto Hummel MD CC: Dr. Edvin Barrett, ; No Primary Care Physician Signed Normal [facility] Bedside Glucoseon 01-01-2025 FINGERSTICK GLU 99 mg/dL Normal 74-106 [facility] Comment on above: Result Comment: ROBBI GEMENT OF PATIENT CARE PER NURSING PROTOCOL Performed By: #### L 501.080 #### [facility] [address] [place], [address] CBC W/Diff, Automatedon Absolute Neut Normal 2.0-7.7 [facility] Comment on above: Result Comment: ZACH ENT DISCHARGED-NO SPECIMEN REC'D Performed By: #### L 501.5200, L501.2300 #### [facility] [address] [place], [address] HCT Normal 37-47 [facility] Comment on above: Result Comment: ZACH ENT DISCHARGED-NO SPECIMEN REC'D Performed By: #### L 501.5200, L501.2300 #### [facility] [address] [place], [address] HGB Normal 12.0-15.0 [facility] Comment on above: Result Comment: ZACH ENT DISCHARGED-NO SPECIMEN REC'D Performed By: #### L 501.5200, L501.2300 #### [facility] [address] [place], [address] MCH Normal 27.0-32.0 [facility] Comment on above: Result Comment: ZACH ENT DISCHARGED-NO SPECIMEN REC'D Performed By: #### L 501.5200, L501.2300 #### [facility] [address] [place], [address] MCHC Normal 32-36 [facility] Comment on above: Result Comment: ZACH ENT DISCHARGED-NO SPECIMEN REC'D Performed By: #### L 501.5200, L501.2300 #### [facility] [address] [place], [address] MCV Normal 81-99 [facility] Comment on above: Result Comment: ZACH ENT DISCHARGED-NO SPECIMEN REC'D Performed By: #### L 501.5200, L501.2300 #### [facility] [address] [place], [address] NEUT% Normal 47-70 [facility] Comment on above: Result Comment: ZACH ENT DISCHARGED-NO SPECIMEN REC'D Performed By: #### L 501.5200, L501.2300 #### [facility] [address] [place], [address] PLT Normal 150-450 [facility] Comment on above: Result Comment: ZACH ENT DISCHARGED-NO SPECIMEN REC'D Performed By: #### L 501.5200, L501.2300 #### [facility] [address] [place], [address] RBC Normal 4.2-5.4 [facility] Comment on above: Result Comment: ZACH ENT DISCHARGED-NO SPECIMEN REC'D Performed By: #### L 501.5200, L501.2300 #### [facility] [address] [place], [address] RDW CV Normal 11.6-14.6 [facility] Comment on above: Result Comment: ZACH ENT DISCHARGED-NO SPECIMEN REC'D Performed By: #### L 501.5200, L501.2300 #### [facility] [address] [place], [address] RDW SD Normal 35.1-43.9 [facility] Comment on above: Result Comment: ZACH ENT DISCHARGED-NO SPECIMEN REC'D Performed By: #### L 501.5200, L501.2300 #### [facility] [address] [place], [address] WBC Normal 4.4-11.0 [facility] Comment on above: Result Comment: ZACH ENT DISCHARGED-NO SPECIMEN REC'D Performed By: #### L 501.5200, L501.2300 #### [facility] [address] [place], [address] Comprehensive Metabolic Prof henrietta 01-01-2025 ALB Normal 3.5-5.0 [facility] Comment on above: Result Comment: ZACH ENT DISCHARGED-NO SPECIMEN REC'D Performed By: #### L 501.5200, L501.2300 #### [facility] [address] [place], [address] ALK PHOS Normal 35-104 [facility] Comment on above: Result Comment: ZACH ENT DISCHARGED-NO SPECIMEN REC'D Performed By: #### L 501.5200, L501.2300 #### [facility] [address] [place], [address] ALT Normal <=34 [facility] Comment on above: Result Comment: ZACH ENT DISCHARGED-NO SPECIMEN REC'D Performed By: #### L 501.5200, L501.2300 #### [facility] [address] [place], [address] AST Normal <=31 [facility] Comment on above: Result Comment: ZACH ENT DISCHARGED-NO SPECIMEN REC'D Performed By: #### L 501.5200, L501.2300 #### [facility] [address] [place], [address] BUN Normal 4-19 [facility] Comment on above: Result Comment: ZACH ENT DISCHARGED-NO SPECIMEN REC'D Performed By: #### L 501.5200, L501.2300 #### [facility] [address] [place], [address] BUN/CRE Normal 10-20 [facility] Comment on above: Result Comment: ZACH ENT DISCHARGED-NO SPECIMEN REC'D Performed By: #### L 501.5200, L501.2300 #### [facility] [address] [place], [address] Calcium Normal 7.6-11.0 [facility] Comment on above: Result Comment: ZACH ENT DISCHARGED-NO SPECIMEN REC'D Performed By: #### L 501.5200, L501.2300 #### [facility] [address] [place], [address] CL Normal 98-108 [facility] Comment on above: Result Comment: ZACH ENT DISCHARGED-NO SPECIMEN REC'D Performed By: #### L 501.5200, L501.2300 #### [facility] [address] [place], [address] CO2 Normal 21.0-32.0 [facility] Comment on above: Result Comment: ZACH ENT DISCHARGED-NO SPECIMEN REC'D Performed By: #### L 501.5200, L501.2300 #### [facility] [address] [place], [address] CREAT,SERUM Normal 0.70-1.20 [facility] Comment on above: Result Comment: ZACH ENT DISCHARGED-NO SPECIMEN REC'D Performed By: #### L 501.5200, L501.2300 #### [facility] [address] [place], [address] eGFR Normal >60 [facility] Comment on above: Result Comment: ZACH ENT DISCHARGED-NO SPECIMEN REC'D Performed By: #### L 501.5200, L501.2300 #### [facility] [address] [place], [address] GAP Normal 5-15 [facility] Comment on above: Result Comment: ZACH ENT DISCHARGED-NO SPECIMEN REC'D Performed By: #### L 501.5200, L501.2300 #### [facility] [address] [place], [address] GLU Normal 70-99 [facility] Comment on above: Result Comment: ZACH ENT DISCHARGED-NO SPECIMEN REC'D Performed By: #### L 501.5200, L501.2300 #### [facility] [address] [place], [address] Potassium Normal 3.3-5.1 [facility] Comment on above: Result Comment: ZACH ENT DISCHARGED-NO SPECIMEN REC'D Performed By: #### L 501.5200, L501.2300 #### [facility] [address] [place], [address] T BILI Normal 0.00-1.30 [facility] Comment on above: Result Comment: ZACH ENT DISCHARGED-NO SPECIMEN REC'D Performed By: #### L 501.5200, L501.2300 #### [facility] [address] [place], [address] T PROT Normal 5.9-8.4 [facility] Comment on above: Result Comment: ZACH ENT DISCHARGED-NO SPECIMEN REC'D Performed By: #### L [id number], L501.2300 #### [facility] [address] [place], [place], [address] Comprehensive Metabolic Profil Normal 133-145 [facility] Comment on above: Result Comment: ZACH ENT DISCHARGED-NO SPECIMEN REC'D Performed By: #### L 501.5200, L501.2300 #### [facility] [address] [place], [address] Emergency Department Summary on 01-01-2025 Emergency Department Summary [facility] Medical Records Department [address] [place] [address] Emergency Department Summary 01/01/25 MR#: [id number] Acct: [id number] Name: DELON HAJI MILTON Rep #: [id number] : 1990 34 From: Edvin Barrett DO [...] put on Clobazam by her neurologist in [place] however they are currently weaning this off [...] intact, sensation intact Psych: Cooperative, flat affect [facility] Medical History IUD (intrauterine device) in place [...] level a (more content not included)... Normal [facility] Urine Drug Screen (VISTA)on 01-01-2025 AMPHETAMINES Normal <1000 ng/mL [facility] Comment on above: Result Comment: ZACH ENT DISCHARGED-NO SPECIMEN REC'D Performed By: #### L 501.5200, L501.2300 #### [facility] [address] [place], [address] BARBITIURATES Normal < 200 ng/mL [facility] Comment on above: Result Comment: ZACH ENT DISCHARGED-NO SPECIMEN REC'D Performed By: #### L 501.5200, L501.2300 #### [facility] [address] [place], [address] BENZODIAZIPINE Normal < 200 ng/mL [facility] Comment on above: Result Comment: ZACH ENT DISCHARGED-NO SPECIMEN REC'D Performed By: #### L 501.5200, L501.2300 #### [facility] [address] [place], [address] BUP Ur Drug Scr Normal < 200 ng/mL [facility] Comment on above: Result Comment: ZACH ENT DISCHARGED-NO SPECIMEN REC'D Performed By: #### L 501.5200, L501.2300 #### [facility] [address] [place], [address] COCAINE Normal < 300 ng/mL [facility] Comment on above: Result Comment: ZACH ENT DISCHARGED-NO SPECIMEN REC'D Performed By: #### L 501.5200, L501.2300 #### [facility] [address] [place], [address] Fentanyl Normal [facility] Comment on above: Result Comment: ZACH ENT DISCHARGED-NO SPECIMEN REC'D Performed By: #### L 501.5200, L501.2300 #### [facility] [address] [place], [address] METHADONE Normal < 300 ng/mL [facility] Comment on above: Result Comment: ZACH ENT DISCHARGED-NO SPECIMEN REC'D Performed By: #### L 501.5200, L501.2300 #### [facility] [address] [place], [address] OPIATES Normal < 300 ng/mL [facility] Comment on above: Result Comment: ZACH ENT DISCHARGED-NO SPECIMEN REC'D Performed By: #### L 501.5200, L501.2300 #### [facility] [address] [place], [address] OXYCODONE Normal < 100 ng/mL [facility] Comment on above: Result Comment: ZACH ENT DISCHARGED-NO SPECIMEN REC'D Performed By: #### L 501.5200, L501.2300 #### [facility] [address] [place], [address] PCP Normal < 25 ng/mL [facility] Comment on above: Result Comment: ZACH ENT DISCHARGED-NO SPECIMEN REC'D Performed By: #### L 501.5200, L501.2300 #### [facility] [address] [place], [address] THC Normal < 50 ng/mL [facility] Comment on above: Result Comment: ZACH ENT DISCHARGED-NO SPECIMEN REC'D Performed By: #### L 501.5200, L501.2300 #### [facility] [address] [place], [address] Lamotrigine (Lamictal) Level on 12-04-2024 LAMOTRIGINE 9.0 ug/mL Normal 2.0-20.0 [facility] Comment on above: Result Comment: Dete ction Limit = 1.0 Performed at: [facility] Lab[address] [id number] H[employer] Sheet Metal Installer: Jyoti Dailey MD, Phone: [phone] Performed By: #### L 400.0001 #### [facility] [address] [place], [place], [id number] Alcohol, Blood (Medical)-Ser on 11-30-2024 SERUM ETOH < 10.1 Normal <=10.0 [facility] Comment on above: Result Comment: This test is for medical purposes only. The legal definition of intoxication varies according to local law. Performed By: #### L 400.0001 #### [facility] [address] [place], [address] CBC W/Diff, Automatedon 05-0 Absolute Lymph 2.72 X10 3/uL Normal 0.83-4.51 [facility] Comment on above: Performed By: #### L 400.0001 #### [facility] [address] [place], [address] Absolute Neut 7.4 X10 3/uL Normal 2.0-7.7 [facility] Comment on above: Performed By: #### L 400.0001 #### [facility] [address] [place], [address] Basophils/100 WBC (Bld) 0.4 % Normal 0-1 [facility] Comment on above: Performed By: #### L 400.0001 #### [facility] [address] [place], [address] Eosinophils/100 WBC (Bld) 2.9 % Normal 0-5 [facility] Comment on above: Performed By: #### L 400.0001 #### [facility] [address] [place], [address] Erythrocyte distribution width (RBC) [Ratio] 12.0 % Normal 11.6-14.6 [facility] Comment on above: Performed By: #### L 400.0001 #### [facility] [address] [place], [address] Hematocrit (Bld) [Volume fraction] 41.8 % Normal 37-47 [facility] Comment on above: Performed By: #### L 400.0001 #### [facility] [address] [place], [address] Hemoglobin (Bld) [Mass/Vol] 14.6 g/dL Normal 12.0-15.0 [facility] Comment on above: Performed By: #### L 400.0001 #### [facility] [address] [place], [address] IG% 0.200 Normal 0.0-0.9 [facility] Comment on above: Result Comment: IG% - Immature Granulocytes (promyelocytes, myelocytes and metamyelocytes) > 1% indicates that a LEFT SHIFT is Present. Performed By: #### L 400.0001 #### [facility] [address] [place] [place], [address] Lymphocytes/100 WBC (Bld) 24.0 % Normal 19-41 [facility] Comment on above: Performed By: #### L 400.0001 #### [facility] [address] [place], [address] MCH (RBC) [Entitic mass] 33.5 pg High 27.0-32.0 [facility] Comment on above: Performed By: #### L 400.0001 #### [facility] [address] [place], [address] MCHC (RBC) [Mass/Vol] 34.9 g/dL Normal 32-36 [facility] Comment on above: Performed By: #### L 400.0001 #### [facility] [address] [place], [address] MCV (RBC) [Entitic vol] 95.9 fL Normal 81-99 [facility] Comment on above: Performed By: #### L 400.0001 #### [facility] [address] [place], [address] Monocytes/100 WBC (Bld) 7.3 % Normal 0-10 [facility] Comment on above: Performed By: #### L 400.0001 #### [facility] [address] [place], [address] Neutrophils/100 WBC (Bld) 65.2 % Normal 47-70 [facility] Comment on above: Performed By: #### L 400.0001 #### [facility] [address] [place], [address] Nucleated RBC (Bld) [#/Vol] 0 10*3/uL Normal 0-5 [facility] Comment on above: Performed By: #### L 400.0001 #### [facility] [address] [place], [address] Platelet mean volume (Bld) [Entitic vol] 9.1 fL Normal 6.2-12.0 [facility] Comment on above: Performed By: #### L 400.0001 #### [facility] [address] [place], [address] Platelets (Bld) [#/Vol] 287 10*3/uL Normal 150-450 [facility] Comment on above: Performed By: #### L 400.0001 #### [facility] [address] [place], [address] RBC (Bld) [#/Vol] 4.36 10*6/uL Normal 4.2-5.4 [facility] Comment on above: Performed By: #### L 400.0001 #### [facility] [address] [place], [address] RDW SD 42.5 fl Normal 35.1-43.9 [facility] Comment on above: Performed By: #### L 400.0001 #### [facility] [address] [place], [address] WBC (Bld) [#/Vol] 11.3 10*3/uL High 4.4-11.0 [facility] Comment on above: Performed By: #### L 400.0001 #### [facility] [address] [place], [address] Comprehensive Metabolic Prof [facility] 11-30-2024 Albumin [Mass/Vol] 4.5 g/dL Normal 3.5-5.0 [facility] Comment on above: Performed By: #### L 400.0001 #### [facility] [address] [place], [address] Albumin/Globulin [Mass ratio] 1.7 {ratio} Normal 0.9-2.4 [facility] Comment on above: Performed By: #### L 400.0001 #### [facility] [address] [place], [address] ALK PHOS 75 U/L Normal 35-104 [facility] Comment on above: Performed By: #### L 400.0001 #### [facility] [address] [place], [address] ALT [Catalytic activity/Vol] 17 U/L Normal <=34 [facility] Comment on above: Performed By: #### L 400.0001 #### [facility] [address] [place], [address] AST [Catalytic activity/Vol] 17 U/L Normal <=31 [facility] Comment on above: Performed By: #### L 400.0001 #### [facility] [address] [place], [address] Bilirubin [Mass/Vol] 0.35 mg/dL Normal 0.00-1.30 [facility] Comment on above: Performed By: #### L 400.0001 #### [facility] [address] [place], [address] BUN/CRE 13.9 RATIO Normal 10-20 [facility] Comment on above: Performed By: #### L 400.0001 #### [facility] [address] [place], [address] Calcium [Mass/Vol] 9.4 mg/dL Normal 7.6-11.0 [facility] Comment on above: Performed By: #### L 400.0001 #### [facility] [address] [place], [address] Chloride [Moles/Vol] 104 mmol/L Normal 98-108 [facility] Comment on above: Performed By: #### L 400.0001 #### [facility] [address] [place], [address] CO2 [Moles/Vol] 24.6 mmol/L Normal 21.0-32.0 [facility] Comment on above: Performed By: #### L 400.0001 #### [facility] [address] [place], [address] Creatinine [Mass/Vol] 0.72 mg/dL Normal 0.70-1.20 [facility] Comment on above: Performed By: #### L 400.0001 #### [facility] [address] [place], [address] ECRCL 139.36 ml/min Normal 50-250 [facility] Comment on above: Performed By: #### L 400.0001 #### [facility] [address] [place], [address] GAP 10 Normal 5-15 [facility] Comment on above: Performed By: #### L 400.0001 #### [facility] [address] [place], [address] GFR/1.73 sq M.predicted among non-blacks MDRD (S/P/Bld) [Vol rate/Area] 112 mL/min/{1.73_m2} Normal >60 [facility] Comment on above: Result Comment: mL/m in/1.73m2 CKD-EPI Creatinine Equation (2020) Performed By: #### L 400.0001 #### [facility] [address] [place], [address] Globulin (S) [Mass/Vol] 2.6 g/dL Normal 2.2-4.2 [facility] Comment on above: Performed By: #### L 400.0001 #### [facility] [address] [place], [address] Glucose [Mass/Vol] 92 mg/dL Normal 70-99 [facility] Comment on above: Performed By: #### L 400.0001 #### [facility] [address] [place], [address] Potassium [Moles/Vol] 3.7 mmol/L Normal 3.3-5.1 [facility] Comment on above: Performed By: #### L 400.0001 #### [facility] [address] [place] [place], [address] Sodium [Moles/Vol] 139 mmol/L Normal 133-145 [facility] Comment on above: Performed By: #### L 400.0001 #### [facility] [address] [place], [place], [id number] T PROT 7.1 g/dL Normal 5.9-8.4 [facility] Comment on above: Performed By: #### L 400.0001 #### [facility] [address] [place], [place], [address] Urea nitrogen [Mass/Vol] 10 mg/dL Normal 4-19 [facility] Comment on above: Performed By: #### L 400.0001 #### [facility] [address] [place], [place], [address] Emergency Department Summary on 11-30-2024 Emergency Department Summary [facility] Medical Records Department [address] [place] [address] Emergency Department Summary 11/30/24 MR#: [id number] Acct: [id number] Name: DELON HAJI MILTON Rep #: [id number] : 1990 34 From: Maurisio Richards DO [...] Patient states that she saw neurology in [place] in October of this year. She states [...] significant other wanted her to be evaluated. [facility] Medical History IUD (intrauterine device) in place [...] depressed o (more content not included)... Normal [facility] ,Serum,hCG Quali.on 11-30-2024 HCG, SERUM QUAL Negative Normal [facility] Comment on above: Performed By: #### L 400.0001 #### [facility] [address] [facility] [place], [place], [address] Urinalysis, Completeon 11-30 EPI,SQUAMOUS 0-5 SEEN Normal 5-10 [facility] Comment on above: Order Comment: CLEAN CATCH Performed By: #### L 400.0001 #### [facility] [address] [facility] [place], [place], [address] RBC 0-5 SEEN Normal 0-5 [facility] Comment on above: Order Comment: CLEAN CATCH Performed By: #### L 400.0001 #### [facility] [address] [place], [address] WBC 0-5 SEEN Normal 0-5 [facility] Comment on above: Order Comment: CLEAN CATCH Performed By: #### L 400.0001 #### [facility] [address] [place], [address] BACTERIA 0 SEEN Normal None Seen [facility] Comment on above: Order Comment: CLEAN CATCH Performed By: #### L 400.0001 #### [facility] [address] [facility] [address] Mucus Ql (Urine sed) 0 SEEN Normal [facility] Comment on above: Order Comment: CLEAN CATCH Performed By: #### L 400.0001 #### [facility] [address] [place] [id number] Urine Drug Screen (VISTA)on 11-30-2024 AMPHETAMINES Negative Normal <1000 ng/mL [facility] Comment on above: Performed By: #### L 400.0001 #### [facility] [address] [facility] [address] BARBITIURATES Negative Normal < 200 ng/mL [facility] Comment on above: Performed By: #### L 400.0001 #### [facility] [address] [place] [address] BENZODIAZIPINE Positive Normal < 200 ng/mL [facility] Comment on above: Result Comment: If c onfirmation testing is needed, a separate order will be required to send out testing to the reference laboratory. Performed By: #### L 400.0001 #### [facility] [address] [place], [address] BUP Ur Drug Scr Negative Normal < 200 ng/mL [facility] Comment on above: Performed By: #### L 400.0001 #### [facility] [address] [facility] [address] COCAINE Negative Normal < 300 ng/mL [facility] Comment on above: Performed By: #### L 400.0001 #### [facility] [address] [place], [address] Fentanyl Negative Normal [facility] Comment on above: Performed By: #### L 400.0001 #### [facility] [address] [place], [address] METHADONE Negative Normal < 300 ng/mL [facility] Comment on above: Performed By: #### L 400.0001 #### [facility] [address] [facility] [address] OPIATES Negative Normal < 300 ng/mL [facility] Comment on above: Performed By: #### L 400.0001 #### [facility] [address] [place], [address] OXYCODONE Negative Normal < 100 ng/mL [facility] Comment on above: Performed By: #### L 400.0001 #### [facility] [address] [facility] [address] PCP Positive Normal < 25 ng/mL [facility] Comment on above: Result Comment: If c onfirmation testing is needed, a separate order will be required to send out testing to the reference laboratory. Performed By: #### L 400.0001 #### [facility] [address] [place], [address] THC Negative Normal < 50 ng/mL [facility] Comment on above: Performed By: #### L 400.0001 #### [facility] [address] [place], [address] Alcohol, Blood (Medical)-Ser umon 11-10-2024 SERUM ETOH < 10.1 Normal <=10.0 [facility] Comment on above: Result Comment: This test is for medical purposes only. The legal definition of intoxication varies according to local law. Performed By: #### L 505.5000, L100.0100, L500.4050, L700.6800, L501.2450, L501.9100 #### [facility] [address] [place], [address] CBC W/Diff, Automatedon - Absolute Lymph 2.96 X10 3/uL Normal 0.83-4.51 [facility] Comment on above: Performed By: #### L 505.5000, L100.0100, L500.4050, L700.6800, L501.2450, L501.9100 #### [facility] [address] [place], [address] Absolute Neut 6.2 X10 3/uL Normal 2.0-7.7 [facility] Comment on above: Performed By: #### L 505.5000, L100.0100, L500.4050, L700.6800, L501.2450, L501.9100 #### [facility] [address] [place], [address] Basophils/100 WBC (Bld) 1.0 % Normal 0-1 [facility] Comment on above: Performed By: #### L 505.5000, L100.0100, L500.4050, L700.6800, L501.2450, L501.9100 #### [facility] [address] [place], [address] Eosinophils/100 WBC (Bld) 2.4 % Normal 0-5 [facility] Comment on above: Performed By: #### L 505.5000, L100.0100, L500.4050, L700.6800, L501.2450, L501.9100 #### [facility] [address] [place], [address] Erythrocyte distribution width (RBC) [Ratio] 12.6 % Normal 11.6-14.6 [facility] Comment on above: Performed By: #### L 505.5000, L100.0100, L500.4050, L700.6800, L501.2450, L501.9100 #### [facility] [address] [place], [address] Hematocrit (Bld) [Volume fraction] 40.4 % Normal 37-47 [facility] Comment on above: Performed By: #### L 505.5000, L100.0100, L500.4050, L700.6800, L501.2450, L501.9100 #### [facility] [address] [place], [address] Hemoglobin (Bld) [Mass/Vol] 14.2 g/dL Normal 12.0-15.0 [facility] Comment on above: Performed By: #### L 505.5000, L100.0100, L500.4050, L700.6800, L501.2450, L501.9100 #### [facility] [address] [facility] [place], [address] IG% 0.400 Normal 0.0-0.9 [facility] Comment on above: Result Comment: IG% - Immature Granulocytes (promyelocytes, myelocytes and metamyelocytes) > 1% indicates that a LEFT SHIFT is Present. Performed By: #### L 505.5000, L100.0100, L500.4050, L700.6800, L501.2450, L501.9100 #### [facility] [address] [place], [address] Lymphocytes/100 WBC (Bld) 29.1 % Normal 19-41 [facility] Comment on above: Performed By: #### L 505.5000, L100.0100, L500.4050, L700.6800, L501.2450, L501.9100 #### [facility] [address] [place], [address] MCH (RBC) [Entitic mass] 33.3 pg High 27.0-32.0 [facility] Comment on above: Performed By: #### L 505.5000, L100.0100, L500.4050, L700.6800, L501.2450, L501.9100 #### [facility] [address] [place], [address] MCHC (RBC) [Mass/Vol] 35.1 g/dL Normal 32-36 [facility] Comment on above: Performed By: #### L 505.5000, L100.0100, L500.4050, L700.6800, L501.2450, L501.9100 #### [facility] [address] [place], [address] MCV (RBC) [Entitic vol] 94.8 fL Normal 81-99 [facility] Comment on above: Performed By: #### L 505.5000, L100.0100, L500.4050, L700.6800, L501.2450, L501.9100 #### [facility] [address] [place], [address] Monocytes/100 WBC (Bld) 6.5 % Normal 0-10 [facility] Comment on above: Performed By: #### L 505.5000, L100.0100, L500.4050, L700.6800, L501.2450, L501.9100 #### [facility] [address] [place], [address] Neutrophils/100 WBC (Bld) 60.6 % Normal 47-70 [facility] Comment on above: Performed By: #### L 505.5000, L100.0100, L500.4050, L700.6800, L501.2450, L501.9100 #### [facility] [address] [place], [address] Nucleated RBC (Bld) [#/Vol] 0 10*3/uL Normal 0-5 [facility] Comment on above: Performed By: #### L 505.5000, L100.0100, L500.4050, L700.6800, L501.2450, L501.9100 #### [facility] [address] [place], [address] Platelet mean volume (Bld) [Entitic vol] 8.8 fL Normal 6.2-12.0 [facility] Comment on above: Performed By: #### L 505.5000, L100.0100, L500.4050, L700.6800, L501.2450, L501.9100 #### [facility] [address] [place], [address] Platelets (Bld) [#/Vol] 287 10*3/uL Normal 150-450 [facility] Comment on above: Performed By: #### L 505.5000, L100.0100, L500.4050, L700.6800, L501.2450, L501.9100 #### [facility] [address] [place], [address] RBC (Bld) [#/Vol] 4.26 10*6/uL Normal 4.2-5.4 [facility] Comment on above: Performed By: #### L 505.5000, L100.0100, L500.4050, L700.6800, L501.2450, L501.9100 #### [facility] [address] [place], [address] RDW SD 43.9 fl Normal 35.1-43.9 [facility] Comment on above: Performed By: #### L 505.5000, L100.0100, L500.4050, L700.6800, L501.2450, L501.9100 #### [facility] [address] [place], [address] WBC (Bld) [#/Vol] 10.2 10*3/uL Normal 4.4-11.0 [facility] Comment on above: Performed By: #### L 505.5000, L100.0100, L500.4050, L700.6800, L501.2450, L501.9100 #### [facility] [address] [place], [address] Comprehensive Metabolic Prof ilon 11-10-2024 Albumin [Mass/Vol] 4.5 g/dL Normal 3.5-5.0 [facility] Comment on above: Performed By: #### L 505.5000, L100.0100, L500.4050, L700.6800, L501.2450, L501.9100 #### [facility] [address] [place], [address] Albumin/Globulin [Mass ratio] 1.8 {ratio} Normal 0.9-2.4 [facility] Comment on above: Performed By: #### L 505.5000, L100.0100, L500.4050, L700.6800, L501.2450, L501.9100 #### [facility] [address] [place], [address] ALK PHOS 84 U/L Normal 35-104 [facility] Comment on above: Performed By: #### L 505.5000, L100.0100, L500.4050, L700.6800, L501.2450, L501.9100 #### [facility] [address] [place], [address] ALT [Catalytic activity/Vol] 23 U/L Normal <=34 [facility] Comment on above: Performed By: #### L 505.5000, L100.0100, L500.4050, L700.6800, L501.2450, L501.9100 #### [facility] [address] [place], [address] AST [Catalytic activity/Vol] 24 U/L Normal <=31 [facility] Comment on above: Performed By: #### L 505.5000, L100.0100, L500.4050, L700.6800, L501.2450, L501.9100 #### [facility] [address] [place], [address] Bilirubin [Mass/Vol] 0.53 mg/dL Normal 0.00-1.30 [facility] Comment on above: Performed By: #### L 505.5000, L100.0100, L500.4050, L700.6800, L501.2450, L501.9100 #### [facility] [address] [place], [address] BUN/CRE 13.4 RATIO Normal 10-20 [facility] Comment on above: Performed By: #### L 505.5000, L100.0100, L500.4050, L700.6800, L501.2450, L501.9100 #### [facility] [address] [place], [address] Calcium [Mass/Vol] 9.3 mg/dL Normal 7.6-11.0 [facility] Comment on above: Performed By: #### L 505.5000, L100.0100, L500.4050, L700.6800, L501.2450, L501.9100 #### [facility] [address] [place], [address] Chloride [Moles/Vol] 104 mmol/L Normal 98-108 [facility] Comment on above: Performed By: #### L 505.5000, L100.0100, L500.4050, L700.6800, L501.2450, L501.9100 #### [facility] [address] [place], [address] CO2 [Moles/Vol] 22.6 mmol/L Normal 21.0-32.0 [facility] Comment on above: Performed By: #### L 505.5000, L100.0100, L500.4050, L700.6800, L501.2450, L501.9100 #### [facility] [address] [place], [place], [address] Creatinine [Mass/Vol] 0.80 mg/dL Normal 0.70-1.20 [facility] Comment on above: Performed By: #### L 505.5000, L100.0100, L500.4050, L700.6800, L501.2450, L501.9100 #### [facility] [address] [place], [place], [address] ECRCL 126.84 ml/min Normal 50-250 [facility] Comment on above: Performed By: #### L 505.5000, L100.0100, L500.4050, L700.6800, L501.2450, L501.9100 #### [facility] [address] [place], [place], [address] GAP 10 Normal 5-15 [facility] Comment on above: Performed By: #### L 505.5000, L100.0100, L500.4050, L700.6800, L501.2450, L501.9100 #### [facility] [address] [place], [place], [address] GFR/1.73 sq M.predicted among non-blacks MDRD (S/P/Bld) [Vol rate/Area] 99 mL/min/{1.73_m2} Normal >60 [facility] Comment on above: Result Comment: mL/m in/1.73m2 CKD-EPI Creatinine Equation (2020) Performed By: #### L 505.5000, L100.0100, L500.4050, L700.6800, L501.2450, L501.9100 #### [facility] [address] [place], [address] Globulin (S) [Mass/Vol] 2.4 g/dL Normal 2.2-4.2 [facility] Comment on above: Performed By: #### L 505.5000, L100.0100, L500.4050, L700.6800, L501.2450, L501.9100 #### [facility] [address] [place], [address] Glucose [Mass/Vol] 91 mg/dL Normal 70-99 [facility] Comment on above: Performed By: #### L 505.5000, L100.0100, L500.4050, L700.6800, L501.2450, L501.9100 #### [facility] [address] [place], [address] Potassium [Moles/Vol] 4.0 mmol/L Normal 3.3-5.1 [facility] Comment on above: Performed By: #### L 505.5000, L100.0100, L500.4050, L700.6800, L501.2450, L501.9100 #### [facility] [address] [place], [address] Sodium [Moles/Vol] 136 mmol/L Normal 133-145 [facility] Comment on above: Performed By: #### L 505.5000, L100.0100, L500.4050, L700.6800, L501.2450, L501.9100 #### [facility] [address] [place], [address] T PROT 6.9 g/dL Normal 5.9-8.4 [facility] Comment on above: Performed By: #### L 505.5000, L100.0100, L500.4050, L700.6800, L501.2450, L501.9100 #### [facility] [address] [place], [address] Urea nitrogen [Mass/Vol] 11 mg/dL Normal 4-19 [facility] Comment on above: Performed By: #### L 505.5000, L100.0100, L500.4050, L700.6800, L501.2450, L501.9100 #### [facility] [address] [place], [address] Emergency Department Summary on 11-10-2024 Emergency Department Summary [facility] Medical Records Department [address] [place] [address] Emergency Department Summary 11/10/24 MR#: [id number] Acct: [id number] Name: DELON HAJI Rep #: [id number] : 1990 34 From: Jignesh Fuentes DO PCP: Care Physician,No Primary Status:ADM IN Location: [place] [address] HPI History of Present Illness Chief Complaint: [...] diarrhea. Patient denies any fevers or chills. [facility] Medical History IUD (intrauterine device) in place [...] for substan (more content not included)... Normal [facility] H AND P Exam - [facility] 11-10-2024 H&P Exam - Hospitalist [facility] Medical Records Department [address] [place] [address] H P Exam - Hospitalist 11/10/24 1443 MR#: [id number] Acct: [id number] Name: DELON HAJI MILTON Rep #: [id number] : 1990 34 From: Caro Chavez MD [...] 16 years old who presents to the [facility] on 11/10/24 w/ last EtOH intake [...] alcohol level upon requested evaluation of patient. [facility] Medical History IUD (intrauterine device) in place [...] ecchymoses, abr (more content not included)... Normal [facility] Lipaseon 11-10-2024 Lipase [Catalytic activity/Vol] 24 U/L Normal 13-75 [facility] Comment on above: Result Comment: Tamir talamantes note: LIPASE revised reference range effective 22. New Lipase methodology. Expected to produce lower values than the previous assay method. NEW Reference Range: 13 - 75 U/L Performed By: #### L 505.5000, L100.0100, L500.4050, L700.6800, L501.2450, L501.9100 #### [facility] [address] [place], [address] Magnesiumon 11-10-2024 Magnesium [Mass/Vol] 2.2 mg/dL Normal 1.5-2.2 [facility] Comment on above: Order Comment: Comme nts: May add to ED labs Comments: may add to ED labs Performed By: #### L 501.5200, L501.2300 #### [facility] [address] [place], [address] Phosphoruson 11-10-2024 Phosphate [Mass/Vol] 2.2 mg/dL Low 2.7-4.5 [facility] Comment on above: Order Comment: Comme nts: May add to ED labs Comments: may add to ED labs Performed By: #### L 501.5200, L501.2300 #### [facility] [address] [place], [address] ,Serum,hCG Quali.on 11-10-2024 HCG, SERUM QUAL Negative Normal [facility] Comment on above: Performed By: #### L 505.5000, L100.0100, L500.4050, L700.6800, L501.2450, L501.9100 #### [facility] [address] [place], [address] Urine Drug Screen (VISTA)on 11-10-2024 AMPHETAMINES Negative Normal <1000 ng/mL [facility] Comment on above: Performed By: #### L 505.5000, L100.0100, L500.4050, L700.6800, L501.2450, L501.9100 #### [facility] [address] [place], [address] BARBITIURATES Negative Normal < 200 ng/mL [facility] Comment on above: Performed By: #### L 505.5000, L100.0100, L500.4050, L700.6800, L501.2450, L501.9100 #### [facility] [address] [place], [address] BENZODIAZIPINE Positive Normal < 200 ng/mL [facility] Comment on above: Result Comment: If c onfirmation testing is needed, a separate order will be required to send out testing to the reference laboratory. Performed By: #### L 505.5000, L100.0100, L500.4050, L700.6800, L501.2450, L501.9100 #### [facility] [address] [place], [address] BUP Ur Drug Scr Negative Normal < 200 ng/mL [facility] Comment on above: Performed By: #### L 505.5000, L100.0100, L500.4050, L700.6800, L501.2450, L501.9100 #### [facility] [address] [place], [address] COCAINE Negative Normal < 300 ng/mL [facility] Comment on above: Performed By: #### L 505.5000, L100.0100, L500.4050, L700.6800, L501.2450, L501.9100 #### [facility] [place], [place], [facility] Fentanyl Negative Normal [facility] Comment on above: Performed By: #### L 505.5000, L100.0100, L500.4050, L700.6800, L501.2450, L501.9100 #### [facility] [address] [place], [place], [facility] METHADONE Negative Normal < 300 ng/mL [facility] Comment on above: Performed By: #### L 505.5000, L100.0100, L500.4050, L700.6800, L501.2450, L501.9100 #### [facility] [address] [place], [place], [facility] OPIATES Negative Normal < 300 ng/mL [facility] Comment on above: Performed By: #### L 505.5000, L100.0100, L500.4050, L700.6800, L501.2450, L501.9100 #### [facility] [address] [place] [address] OXYCODONE Negative Normal < 100 ng/mL [facility] Comment on above: Performed By: #### L 505.5000, L100.0100, L500.4050, L700.6800, L501.2450, L501.9100 #### [facility] [address] [place], [place], [id number] PCP Negative Normal < 25 ng/mL [facility] Comment on above: Performed By: #### L 505.5000, L100.0100, L500.4050, L700.6800, L501.2450, L501.9100 #### [facility] [address] [place], [place], [id number] THC Negative Normal < 50 ng/mL [facility] Comment on above: Performed By: #### L 505.5000, L100.0100, L500.4050, L700.6800, L501.2450, L501.9100 #### [facility] [address] [place], [place], [id number] XR FINGER THUMB 3 VIEWS LEFT on [...] 03/18/2024 4:09:39 PM Ordering Provider: JENA SWANSON [facility] ([place]) XR FINGER THUMB 3 VIEWS LEFT on [...] 02/25/2024 6:46:27 PM Ordering Provider: CARMEN BROWN [facility] ([place]) Emergency Department Summary on 02-23-2024 Emergency Department Summary [facility] Medical Records Department [address] [place] [address] Emergency Department Summary 02/23/24 MR#: [id number] Acct: [id number] Name: DELON HAJI MILTON Rep #: [id number] : 1990 33 From: Bradley Leach DO [...] anywhere else Chief Complaint: [facility] Extremity [facility] Medical History Vaginal delivery History of pre-term [...] follow commands knew that she was at [facility] year is 2023 Skin: Warm, dry, intact Const Vital Signs: 07/31/24 13:42 Temperature 96.9 F L Temperature Source [...] encouraged to ice and use ibuprofen Tylenol [id number]-rorbfxl for pain control. She is agreeable this [...] use ibuprofen/ (more content not included)... Normal [facility] Hand Min 3 Viewson 4 Hand Min 3 Views [facility] Imaging Services [address] [place] [address] Hand Min 3 Views MR#: [id number] Acct: [id number] Name: DELON HAJI MILTON Rep #: [id number] : 1990 F 33 From: Jaime owen MD PCP: Care Physician,No Primary Status: REG ER Study: Hand Min 3 Views Date of Exam: 02/23/24 Exam# [id number] Ordering Dr: Bradley Leach DO [id number] STUDY: X-RAY - LEFT HAND REASON FOR [...] Bradley Leach, DO; No Primary Care Physician Crew Leader Gluing: Signed Normal [facility] Bacteria Wnd Culton 01-06-20 24 Bacteria [...] , Intermediate >4 , Resistant >8 Abnormal [facility] Comment on above: Performed By: #### 6 462-6 ####[facility] [id number] [address] STATES OF [facility] CNOVon 11-12-2023 CNOV Office Visit (UCWSTR ) DELON HAJI ([id number]) 1990 F Date Time Provider Department 11/12/23 11:00 AM JAYLYN CHARLTON [facility] During your visit today, we recorded the [...] to this plan. She will go to [place] [facility]. Allergies As of Date: 11/12/2023 Noted [...] 1 capsule by mouth once daily. - Pvnvgtaz-Rj-Hfi-Fe-FA tab Take 1 tablet by mouth once [...] Encounter Status:Closed by JAYLYN CHARLTON on 11/12/23 Normal [facility] Sd 09-28-2023 CNCO Letter Text Normal [facility] CNPAmi 09-28-2023 MATN Telephone (SARAH) DELON HAJI ([id number]) 1990 F Date Time Provider Department 09/28/23 BECKY FLOR During your visit today, we recorded the following information about you: Rayna Tanner, RN 09/28/2023 3:56 PM Signed Patient called [...] Fully Assessed Reason for Visit: Patient Question [7657] Prescriptions as of 09/28/2023 - lamoTRIgine ER [...] 1 capsule by mouth once daily. - Sfrjmncz-Hm-Fff-Fe-FA tab Take 1 tablet by mouth once [...] Encounter Status:Closed by RAYNA TANNER on 09/28/23 Normal [facility] CNOVon 09-27-2023 CNOV Office Visit (SARAH ) DELON HAJI ([id number]) 1990 F Date Time Provider Department 09/27/23 1:30 PM BECKY FLOR During your visit today, we recorded the [...] anything else at home for pain. Becky Flor PA-C 10/05/2023 9:08 AM Addendum Becky Flor PA-C Department of Orthopaedics [facility] [address] [facility] [address] Dept: [phone] Dept September 27, 2023 CHIEF COMPLAINT: New [...] the most painful for her. This is [facility]. ASSESSMENT: S62.968G Closed fracture of tuft of distal phalanx [...] tuft of the LEFT 3rd distal phalanx. Crew Leader Gluing: PSCB Transcribe Date/Time: Sep 22 2023 11:32A [...] not gloria (more content not included)... Normal [facility] CNOVon 09-24-2023 CNOV Office Visit (FRWS ) DELON HAJI ([id number]) 1990 F Date Time Provider Department 09/24/23 11:00 AM VIET ESPARZA V [facility] During your visit today, we recorded the following information about you: Viet Esparza V, DO 09/27/2023 8:56 AM Signed opened in error- Viet Esparza V, DO 09/27/2023 8:56 AM Signed opened in error no charge, visit rescheduled. Referring Provider: MEG ORTEZ [[id number]] Allergies As of Date: 09/24/2023 Noted Allergy Reaction TOMATO 04/02/2022 8 - GI Upset Date Reviewed: 09/22/2023 Reviewed by: Carmen Brush - Fully Assessed Reason for Visit: Left middle finger injury REF: Alban Ortez x-ray: 09/22/2023 [Other] Visit Diagnoses:Injury of finger of left hand, initial encounter [S69.92XA] Closed fracture of tuft of distal phalanx of finger [S62.639A] Order(s):CONSULT TO ORTHOPAEDICS [9026] Order #: [id number]: 1 Prescriptions as of 09/27/2023 - cephALEXin [...] 1 capsule by mouth once daily. - Blawbpbq-Ep-Qoh-Fe-FA tab Take 1 tablet by mouth once [...] by VIET ESPARZA V on 09/27/23 Normal [facility] [place] 09-22-2023 CNOV Office Visit (UCWSTR ) DELON HAJI ([id number]) 1990 F Date Time Provider Department 09/22/23 11:00 AM MEG ORTEZ [facility] During your visit today, we recorded the following information about you: Temperature Pulse Respiration Blood pressure 98.2 degrees 88/minute 16/minute 110/64 Weight 88.5 kg Meg Ortez APRN.INTERLOCKER MAINTAINER 09/22/2023 12:02 PM Signed This note was created using [employer]. Subjective Delon Haji is a 33 year [...] history is provided by the patient. No foreign language professor was used. Musculoskeletal Problem This is a [...] daily. (Patient not taking: Reported on 03/03/2019) Iqohbcee-Fq-Xhj-Fe-FA tab Take 1 tablet by mouth once [...] Vitals and (more content not included)... Normal [facility] XR DIGIT 3V FRONTAL/LAT/OBL LTon 09-22-2023 XR [...] tuft of the LEFT 3rd distal phalanx. Crew Leader Gluing: DARREN Transcribe Date/Time: Sep 22 2023 11:32A Dictated by : JANIE MCDOWELL, DO This examination was interpreted and the report reviewed and electronically signed by: JANIE MCDOWELL DO on Sep 22 2023 11:35AM EST [id number] Normal [facility] XR Finger - left AP and Late ral and obliqueon 09-22-2023 IMPRESSION: Suspect nondisplaced fracture tuft of the LEFT 3rd distal phalanx. Crew Leader Gluing: DARREN Transcribe Date/Time: Sep 22 2023 11:32A [...] spaces are maintained. DIVISION OF RADIOLOGY Provider, [facility] - 09/22/2023 * * *Final [...] tuft of the LEFT 3rd distal phalanx. Crew Leader Gluing: DARREN Transcribe Date/Time: Sep 22 2023 11:32A Dictated by : JANIE MCDOWELL DO This examination was interpreted and the report reviewed and electronically signed by: JANIE MCDOWELL DO on Sep 22 2023 11:35AM EST [facility] Radiology Study observation (narrative) [facility] XR Finger - left AP and Late ral and obliqueOrdered By: Ccf Provider on 09-22-2023 [facility] Rogelio 08-25-2023 Lamotrigine Lvl 3.5 UG/ML Normal 2.0-20.0 [facility] ([place]) Comment on above: Result Comment: Dete ction Limit = 1.0 Performed At: [facility] [id number] Asim Montes MD Ph:[phone] Performed By: #### M DW, CMP, ANEU, LAC, 538604, GFR, PREGS, CBC, MG, ADIFF ####[address] [address] .Auto Diffon 08-21-2023 Basophil, Absolute 0.0 10 3/mcL Normal 0.0-0.2 [facility] ([place]) Comment on above: Performed By: #### M DW, CMP, ANEU, LAC, 567923, GFR, PREGS, CBC, MG, ADIFF #### [place] [address] [place], [place] [address] Basophils/100 WBC (Bld) 0.3 % Normal 0.0-2.5 [facility] ([place]) Comment on above: Performed By: #### M DW, CMP, ANEU, LAC, 444053, GFR, PREGS, CBC, MG, ADIFF #### [place] [address] [place], [place] [address] Eosinophil, Absolute 0.0 10 3/mcL Normal 0.0-0.4 [facility] ([place]) Comment on above: Performed By: #### M DW, CMP, ANEU, LAC, 562620, GFR, PREGS, CBC, MG, ADIFF #### [address] [address] Eosinophils/100 WBC (Bld) 0.3 % Normal 0.0-7.0 [facility] ([place]) Comment on above: Performed By: #### M DW, CMP, ANEU, LAC, 828559, GFR, PREGS, CBC, MG, ADIFF #### [address] [address] Lymphocyte, Absolute 1.1 10 3/mcL Normal 0.8-3.9 [facility] ([place]) Comment on above: Performed By: #### M DW, CMP, ANEU, LAC, 732656, GFR, PREGS, CBC, MG, ADIFF #### [address] [address] Lymphocytes/100 WBC (Bld) 9.3 % Low 10.0-50.0 [facility] ([place]) Comment on above: Performed By: #### M DW, CMP, ANEU, LAC, 815235, GFR, PREGS, CBC, MG, ADIFF #### [address] [address] Monocyte, Absolute 0.5 10 3/mcL Normal 0.2-1.0 [facility] ([place]) Comment on above: Performed By: #### M DW, CMP, ANEU, LAC, 697794, GFR, PREGS, CBC, MG, ADIFF #### [address] [address] Monocytes/100 WBC (Bld) 4.2 % Normal 1.7-13.0 [facility] ([place]) Comment on above: Performed By: #### M DW, CMP, ANEU, LAC, 588238, GFR, PREGS, CBC, MG, ADIFF #### [address] [address] Neutrophils/100 WBC (Bld) 85.9 % High 37.0-80.0 [facility] ([place]) Comment on above: Performed By: #### M DW, CMP, ANEU, LAC, 718329, GFR, PREGS, CBC, MG, ADIFF #### [place] [address] [place], [place] [address] .GFRon 08-21-2023 GFR 100 ml/min/1.73sqm Normal [facility] ([place]) Comment on above: Result Comment: GFR Population [...] By: #### M DW, CMP, ANEU, LAC, 670176, GFR, PREGS, CBC, MG, ADIFF ####[place] [place], [place] [address] GFR Non- 83 ml/min/1.73sqm Normal [facility] ([place]) Comment on above: Result Comment: GFR Population [...] By: #### M DW, CMP, ANEU, LAC, 188474, GFR, PREGS, CBC, MG, ADIFF ####[address] [place], [place] [address] .MDWon 08-21-2023 Monocyte Distribution Width 15.17 Normal 0.00-20.00 [facility] ([place]) Comment on above: Result Comment: For ED adult patients suspected of sepsis, MDW<=20.0 does not rule out sepsis or risk of sepsis Performed By: #### M DW, CMP, ANEU, LAC, 132311, GFR, PREGS, CBC, MG, ADIFF #### [address] [place], [place] [address] .NEUABSon 08-21-2023 Neutrophil, Absolute 9.8 10 3/mcL High 2.9-6.2 [facility] ([place]) Comment on above: Performed By: #### M DW, CMP, ANEU, LAC, 373683, GFR, PREGS, CBC, MG, ADIFF #### [place] [address] [place] [address] .Urinalysis Microscopic (AO) on 08-21-2023 UA Bacteria 2+ /hpf Abnormal [facility] ([place]) Comment on above: Performed By: #### U AMICAO, UDRUG, UA ####[address] [place] [address] UA Mucous Trace Normal [facility] ([place]) Comment on above: Performed By: #### U AMICAO, UDRUG, UA ####[address] [place], [place] [address] UA RBC None Seen Normal None Seen [facility] ([place]) Comment on above: Performed By: #### U AMICAO, UDRUG, UA ####[address] [place] [address] UA Squam Epithelial 5-10 Abnormal None Seen [facility] ([place]) Comment on above: Performed By: #### U AMICAO, UDRUG, UA ####[address] [place] [address] UA WBC 0-5 Abnormal None Seen [facility] ([place]) Comment on above: Performed By: #### U AMICAO, UDRUG, UA ####[address] [place] [address] CBCon 08-21-2023 Erythrocyte distribution width (RBC) [Ratio] 13.3 % Normal 11.5-14.5 [facility] ([place]) Comment on above: Performed By: #### M DW, CMP, ANEU, LAC, 185865, GFR, PREGS, CBC, MG, ADIFF #### [address] [address] Hematocrit (Bld) [Volume fraction] 40.3 % Normal 37.0-47.0 [facility] ([place]) Comment on above: Performed By: #### M DW, CMP, ANEU, LAC, 253054, GFR, PREGS, CBC, MG, ADIFF #### [place] [address] Hgb 13.9 G/dL Normal 12.0-16.0 [facility] ([place]) Comment on above: Performed By: #### M DW, CMP, ANEU, LAC, 569797, GFR, PREGS, CBC, MG, ADIFF #### [place] [id number] MCH (RBC) [Entitic mass] 32.2 pg High 27.0-31.2 [facility] ([place]) Comment on above: Performed By: #### M DW, CMP, ANEU, LAC, 542489, GFR, PREGS, CBC, MG, ADIFF #### [address] [address] MCHC 34.5 G/dL Normal 33.0-37.0 [facility] ([place] Comment on above: Performed By: #### M DW, CMP, ANEU, LAC, 327112, GFR, PREGS, CBC, MG, ADIFF #### [address] [address] MCV (RBC) [Entitic vol] 93.2 fL Normal 80.0-94.0 [facility] ([place]) Comment on above: Performed By: #### M DW, CMP, ANEU, LAC, 168600, GFR, PREGS, CBC, MG, ADIFF #### [address] [address] Platelet 275 10 3/mcL Normal 130-400 [facility] ([place]) Comment on above: Performed By: #### M DW, CMP, ANEU, LAC, 065753, GFR, PREGS, CBC, MG, ADIFF #### [address] [address] Platelet mean volume (Bld) [Entitic vol] 7.3 fL Low 7.4-10.4 [facility] ([place]) Comment on above: Performed By: #### M DW, CMP, ANEU, LAC, 370502, GFR, PREGS, CBC, MG, ADIFF #### [place] [address] RBC 4.33 10 6/mcL Normal 4.20-5.40 [facility] ([place]) Comment on above: Performed By: #### M DW, CMP, ANEU, LAC, 864374, GFR, PREGS, CBC, MG, ADIFF #### [address] [address] WBC 11.4 10 3/mcL High 4.6-10.8 [facility] ([place]) Comment on above: Performed By: #### M DW, CMP, ANEU, LAC, 604039, GFR, PREGS, CBC, MG, ADIFF #### [address] [address] CMPon 08-21-2023 Albumin Level 4.1 G/dL Normal 3.5-5.0 [facility] ([place]) Comment on above: Performed By: #### M DW, CMP, ANEU, LAC, 086869, GFR, PREGS, CBC, MG, ADIFF #### [address] [address] Albumin/Globulin [Mass ratio] 1.4 {ratio} Normal 1.1-2.5 [facility] ([place]) Comment on above: Performed By: #### M DW, CMP, ANEU, LAC, 869412, GFR, PREGS, CBC, MG, ADIFF #### [place] [address] [place], [place] [address] ALP [Catalytic activity/Vol] 83 U/L Normal 40-135 [facility] ([place]) Comment on above: Performed By: #### M DW, CMP, ANEU, LAC, 935812, GFR, PREGS, CBC, MG, ADIFF #### [address] [address] ALT [Catalytic activity/Vol] 19 U/L Normal 14-59 [facility] ([place]) Comment on above: Performed By: #### M DW, CMP, ANEU, LAC, 123504, GFR, PREGS, CBC, MG, ADIFF #### [place] [address] AST [Catalytic activity/Vol] 10 U/L Normal 10-40 [facility] ([place]) Comment on above: Performed By: #### M DW, CMP, ANEU, LAC, 142055, GFR, PREGS, CBC, MG, ADIFF #### [address] [address] Bili Total 0.4 mg/dL Normal 0.2-1.0 [facility] ([place]) Comment on above: Result Comment: Use of this assay is not recommended for patients undergoing treatment with eltrombopag due to the potential for falsely elevated results. Performed By: #### M DW, CMP, ANEU, LAC, 013025, GFR, PREGS, CBC, MG, ADIFF #### [address] [address] BUN/Creatinine Ratio 16 ratio Normal 7-27 [facility] ([place]) Comment on above: Performed By: #### M DW, CMP, ANEU, LAC, 483783, GFR, PREGS, CBC, MG, ADIFF #### [address] [address] Calcium [Mass/Vol] 9.2 mg/dL Normal 8.4-10.2 [facility] ([place]) Comment on above: Performed By: #### M DW, CMP, ANEU, LAC, 335620, GFR, PREGS, CBC, MG, ADIFF #### [address] [address] Chloride [Moles/Vol] 106 mmol/L Normal 98-107 [facility] ([place]) Comment on above: Performed By: #### M DW, CMP, ANEU, LAC, 056762, GFR, PREGS, CBC, MG, ADIFF #### [address] [address] CO2 [Moles/Vol] 28 mmol/L Normal 22-29 [facility] ([place]) Comment on above: Performed By: #### M DW, CMP, ANEU, LAC, 000115, GFR, PREGS, CBC, MG, ADIFF #### [address] [address] Creatinine [Mass/Vol] 0.80 mg/dL Normal 0.55-1.02 [facility] ([place]) Comment on above: Performed By: #### M DW, CMP, ANEU, LAC, 678312, GFR, PREGS, CBC, MG, ADIFF #### [address] [address] Electrolyte Balance 8.0 mEq/L Normal 4.0-15.0 [facility] ([place]) Comment on above: Performed By: #### M DW, CMP, ANEU, LAC, 152511, GFR, PREGS, CBC, MG, ADIFF #### [address] [address] Globulin 3.0 G/dL Normal [facility] ([place]) Comment on above: Performed By: #### M DW, CMP, ANEU, LAC, 990733, GFR, PREGS, CBC, MG, ADIFF #### [address] [address] Glucose [Mass/Vol] 104 mg/dL Normal 70-105 [facility] ([place]) Comment on above: Performed By: #### M DW, CMP, ANEU, LAC, 648861, GFR, PREGS, CBC, MG, ADIFF #### [address] [address] Potassium [Moles/Vol] 4.4 mmol/L Normal 3.5-5.1 [facility] ([place]) Comment on above: Performed By: #### M DW, CMP, ANEU, LAC, 796723, GFR, PREGS, CBC, MG, ADIFF #### [place] [place], [place] [address] Sodium [Moles/Vol] 142 mmol/L Normal 136-145 [facility] ([place]) Comment on above: Performed By: #### M DW, CMP, ANEU, LAC, 917046, GFR, PREGS, CBC, MG, ADIFF #### [address] [address] Total Protein 7.1 G/dL Normal 6.4-8.2 [facility] ([place]) Comment on above: Performed By: #### M DW, CMP, ANEU, LAC, 510042, GFR, PREGS, CBC, MG, ADIFF #### [address] [address] Urea nitrogen [Mass/Vol] 13 mg/dL Normal 7-18 [facility] ([place]) Comment on above: Performed By: #### M DW, CMP, ANEU, LAC, 346884, GFR, PREGS, CBC, MG, ADIFF #### [address] [address] [address] HEAD OR BRAIN W/O CONTRAS Ton [...] 08/21/2023 2:08:47 PM Ordering Provider: JACOB Saldana [facility] ([place]) LABORATORYOrdered By: SYSTEM SYSTEM on 08-21-2023 Albumin [...] Lactic Acid Lvl 1.2 mmol/L Normal 0.4-2.0 [facility] ([place]) Comment on above: Performed By: #### M DW, CMP, ANEU, LAC, 167848, GFR, PREGS, CBC, MG, ADIFF #### [address] [place], [place] [address] MGon 08-21-2023 Magnesium [Mass/Vol] 2.1 mg/dL Normal 1.8-2.4 [facility] ([place]) Comment on above: Performed By: #### M DW, CMP, ANEU, LAC, 640281, GFR, PREGS, CBC, MG, ADIFF #### [place] [address] [place], [place] [address] PREGSon 08-21-2023 test (s) Negative Normal [facility] ([place]) Comment on above: Performed By: #### M DW, CMP, ANEU, LAC, 539890, GFR, PREGS, CBC, MG, ADIFF #### [place] [address] [place], [place] [address] test (s) int Not detected Invalid Interpretation Code [facility] ([place]) Comment on above: Performed By: #### M DW, CMP, ANEU, LAC, 494417, GFR, PREGS, CBC, MG, ADIFF #### [address] [place], [place] [address] UAon 08-21-2023 Color (U) Yellow Normal [facility] ([place]) Comment on above: Result Comment: Spec imen volumes less than 5 ml may not yield chemical or microscopic results truly reflective of renal function or general metabolic status. Performed By: #### U AMICAO, UDRUG, UA ####[address] [place], [place] [address] Glucose (U) [Mass/Vol] Negative Normal Negative [facility] ([place]) Comment on above: Performed By: #### U AMICAO, UDRUG, UA ####[address] [place], [place] [address] Ketones Ql (U) Negative Normal Negative [facility] ([place]) Comment on above: Performed By: #### U AMICAO, UDRUG, UA ####[address] [place], [place] [address] UA Appear Clear Normal Clear [facility] ([place]) Comment on above: Performed By: #### U AMICAO, UDRUG, UA ####[address] [place], [place] [address] UA Blood Large Abnormal Negative [facility] ([place]) Comment on above: Performed By: #### U AMICAO, UDRUG, UA ####[address] [place], [place] [address] UA Leuk Est Negative Normal Negative [facility] ([place]) Comment on above: Performed By: #### U AMICAO, UDRUG, UA ####[address] [place], [place] [address] UA Nitrite Negative Normal Negative [facility] ([place]) Comment on above: Performed By: #### U AMICAO, UDRUG, UA ####[address] [place], [place] [address] UA pH 7.0 Normal 5.0 - 8.0 [facility] ([place]) Comment on above: Performed By: #### U AMICAO, UDRUG, UA ####[address] [place], [place] [address] UA Protein Trace Normal Negative [facility] ([place]) Comment on above: Performed By: #### U AMICAO, UDRUG, UA ####[address] [place], [place] [address] UA Spec Grav 1.025 Normal 1.015-1.025 [facility] ([place]) Comment on above: Performed By: #### U AMICAO, UDRUG, UA ####[address] [place], [place] [address] UA Specimen Type Clean Catch Normal [facility] ([place]) Comment on above: Performed By: #### U AMICAO, UDRUG, UA ####[address] [place], [place] [address] UA Urobilinogen 0.2 E.U./dL Normal 0.2-1.0 [facility] ([place]) Comment on above: Performed By: #### U AMICAO, UDRUG, UA ####[address] [place], [place] [address] Urobilinogen (U) [Mass/Vol] Negative Normal Negative [facility] ([place]) Comment on above: Performed By: #### U AMICAO, UDRUG, UA ####[address] [place], [place] [address] UDRUGon 08-21-2023 Amphetamine (u) Negative Normal Negative [facility] ([place]) Comment on above: Performed By: #### U AMICAO, UDRUG, UA ####[address] [place], [place] [address] Barbiturate (u) Negative Normal Negative [facility] ([place]) Comment on above: Performed By: #### U AMICAO, UDRUG, UA ####[address] [place] [address] Benzodiazepine (u) Negative Normal Negative [facility] ([place]) Comment on above: Performed By: #### U AMICAO, UDRUG, UA ####[address] [place], [place] [address] Cannabinoid (u) Positive Abnormal Negative [facility] ([place]) Comment on above: Performed By: #### U AMICAO, UDRUG, UA ####[address] [place], [place] [address] Cocaine Ql (U) Negative Normal Negative [facility] ([place]) Comment on above: Performed By: #### U AMICAO, UDRUG, UA ####[address] [place], [place] [address] Methadone Ql (U) Negative Normal Negative [facility] ([place]) Comment on above: Performed By: #### U AMICAO, UDRUG, UA ####[address] [place], [place] [address] Opiate (u) Negative Normal Negative [facility] ([place]) Comment on above: Performed By: #### U AMICAO, UDRUG, UA ####[address] [place], [place] [address] PCP (u) Negative Normal Negative [facility] ([place]) Comment on above: Performed By: #### U PORSHA ARROYO, UA ####[address] [place], [place] [address] Urine Drugs screened: See Below Normal [facility] ([place]) Comment on above: Result Comment: This drug [...] MEDICAL PURPOSES ONLY. Performed By: #### U PORSHA ARROYO, UA ####[address] [place], [place] [address] CNOVon 03-12-2023 CNOV Office Visit (GENSWS ) DELON HAJI ([id number]) 1990 F Date Time Provider Department 03/12/23 3:00 PM GINETTE WASSERMAN GENSWS During your visit today, we recorded the [...] Plan of Care Visit completed when applicable. LOMAN Cain Billie, RN 03/12/2023 3:50 PM Signed The following instructions are important for you related to your office visit today with the [facility] General Surgeons. Instructions After ABSCESS DRAINAGE Tylenol [...] 10 mi (more content not included)... Normal [facility] CNOVon 03-11-2023 CNOV Office Visit (UCWSTR ) DELON HAJI ([id number]) 1990 F Date Time Provider Department 03/11/23 11:45 AM DAVINA THOMAS [facility] During your visit today, we recorded the following information about you: Temperature Pulse Respiration Blood pressure 98.6 degrees 110/minute 18/minute 113/76 Weight 83.7 kg William KIMBER Henderson 03/11/2023 12:36 PM Signed Subjective HPI HPI Delon Haji is a [...] daily. (Patient not taking: Reported on 03/03/2019) Hfppprmv-[id number]-[id number] tab Take 1 tablet by mouth once [...] - CONSULT TO GENERAL SURGERY Davina Thomas APRN.INTERLOCKER MAINTAINER Allergies As of Date: 03/11/2023 Noted Allergy [...] CONSULT TO GENERAL SURGERY [9011] Order #: [id number]: 1 FUTURE Prescriptions as of 03/11/2023 - [...] by mo (more content not included)... Normal [facility] Progress Noteon 04-02-2022 Logistics Support Authentication Interface Message Text Maternal Medicine Consult [...] No Muscular Dystrophy No Cystic Fibrosis No Thompson's Chorea No Intellectual Disability/Autism No Metabolic Disorder [...] if target (more content not included)... Normal [facility] LABORATORYOrdered By: Aelsha Harrison on 10-21-2021 Appearance (U) Clear (10/21/21 [...] mass index (BMI) [Ratio] 32.99 kg/m2 Alison Maturu V, DO Work Phone: [facility] 10-05-2024 08:07-0400 Body temperature 97.9 [degF] Alison Maturu V, DO Work Phone: [facility] 10-05-2024 08:07-0400 Body weight 101.33 kg Alison Maturu V, DO Work Phone: [facility] 10-05-2024 08:07-0400 Diastolic blood pressure 61 mm[Hg] Alison Maturu V, DO Work Phone: [facility] 10-05-2024 08:07-0400 Heart rate 81 /min Alison Maturu V, DO Work Phone: [facility] 10-05-2024 08:07-0400 Systolic blood pressure 121 mm[Hg] Alison Maturu V, DO Work Phone: [facility] 03-18-2024 15:20-0400 Body temperature 98.78 [degF] DR JENA SWANSON MD [facility] 03-18-2024 15:20-0400 Diastolic Blood Pressure Non-Invasive 68 mm[Hg] DR JENA SWANSON MD [facility] 03-18-2024 15:20-0400 Heart rate 100 /min DR JENA SWANSON MD [facility] 03-18-2024 15:20-0400 Respiratory rate 18 /min DR JENA SWANSON MD [facility] 03-18-2024 15:20-0400 Systolic Blood Pressure Non-Invasive 112 mm[Hg] DR JENA SWANSON MD [facility] 02-25-2024 18:03-0400 Body temperature 97.34 [degF] ROQUE MEJÍA DO [facility] 02-25-2024 18:03-0400 Body weight 81 kg ROQUE MEJÍA DO [facility] 02-25-2024 18:03-0400 Diastolic Blood Pressure Non-Invasive 71 mm[Hg] ROQUE MEJÍA DO [facility] 02-25-2024 18:03-0400 Heart rate 105 /min ROQUE MEJÍA DO [facility] 02-25-2024 18:03-0400 Respiratory rate 16 /min ROQUE MEJÍA DO [facility] 02-25-2024 18:03-0400 Systolic Blood Pressure Non-Invasive 122 mm[Hg] ROQUE MEJÍA DO [facility] 11-14-2023 17:40-0400 Blood Pressure Cuff Size NORMA HELDERADRIANT DO [facility] 11-14-2023 17:40-0400 Blood Pressure Location NORMA FROMMELT DO [facility] 11-14-2023 17:40-0400 Blood Pressure Method NORMA ECKERT D O [facility] 11-14-2023 17:40-0400 Body temperature 97.7 [degF] NORMA FROMMELT DO [facility] 11-14-2023 17:40-0400 Diastolic Blood Pressure Non-Invasive 76 mm[Hg] NORMA FROMADRIANT DO [facility] 11-14-2023 17:40-0400 Heart rate 88 /min NORMA FROMMELT DO [facility] 11-14-2023 17:40-0400 Respiratory rate 16 /min NORMA ECKERT DO [facility] 11-14-2023 17:40-0400 Systolic Blood Pressure Non-Invasive 125 mm[Hg] NORMA ECKERT DO [facility] 11-12-2023 11:01-0400 Body temperature 98.01 [degF] Krislyn Aberegg PA Work Phone: [facility] 11-12-2023 11:01-0400 Body weight 87.5 kg Krislyn Aberegg PA Work Phone: [facility] 11-12-2023 11:01-0400 Diastolic blood pressure 64 mm[Hg] Krislyn Aberegg PA Work Phone: [facility] 11-12-2023 11:01-0400 Heart rate 69 /min Krislyn Aberegg PA Work Phone: [facility] 11-12-2023 11:01-0400 Respiratory rate 16 /min Krislyn Aberegg PA Work Phone: [facility] 11-12-2023 11:01-0400 SaO2% (BldA) [Mass fraction] 98 % Krislyn Aberegg PA Work Phone: [facility] 11-12-2023 11:01-0400 Systolic blood pressure 128 mm[Hg] Krislyn Aberegg PA Work Phone: [facility] 10-13-2023 08:22-0400 Body height 175.3 cm Tonja Xie APRN-INTERLOCKER MAINTAINER Work Phone: [facility] 10-13-2023 08:22-0400 Body mass index (BMI) [Ratio] 27.76 kg/m2 Tonja Xie APRN-INTERLOCKER MAINTAINER Work Phone: [facility] 10-13-2023 08:22-0400 Body temperature 100 [degF] Tonja Xie BURIAL VAULT DELIVERER AND INSTALLER-INTERLOCKER MAINTAINER Work Phone: [facility] 10-13-2023 08:22-0400 Body weight 85.28 kg Tonja Xie BURIAL VAULT DELIVERER AND INSTALLER-INTERLOCKER MAINTAINER Work Phone: [facility] 10-13-2023 08:22-0400 Diastolic blood pressure 57 mm[Hg] Tonja Xie BURIAL VAULT DELIVERER AND INSTALLER-INTERLOCKER MAINTAINER Work Phone: [facility] 10-13-2023 08:22-0400 Heart rate 94 /min Tonja Xie BURIAL VAULT DELIVERER AND INSTALLER-INTERLOCKER MAINTAINER Work Phone: [facility] 10-13-2023 08:22-0400 Systolic blood pressure 122 mm[Hg] Tonja Xie BURIAL VAULT DELIVERER AND INSTALLER-INTERLOCKER MAINTAINER Work Phone: [facility] 09-22-2023 11:09-0500 Body temperature 98.2 [degF] Meg Ortez BURIAL VAULT DELIVERER AND INSTALLER.INTERLOCKER MAINTAINER Work Phone: [facility] 09-22-2023 11:09-0500 Body weight 88.45 kg Meg Ortez BURIAL VAULT DELIVERER AND INSTALLER.INTERLOCKER MAINTAINER Work Phone: [facility] 09-22-2023 11:09-0500 Diastolic blood pressure 64 mm[Hg] Meg Ortez BURIAL VAULT DELIVERER AND INSTALLER.INTERLOCKER MAINTAINER Work Phone: [facility] 09-22-2023 11:09-0500 Heart rate 88 /min Meg Ortez BURIAL VAULT DELIVERER AND INSTALLER.INTERLOCKER MAINTAINER Work Phone: [facility] 09-22-2023 11:09-0500 Respiratory rate 16 /min Meg Ortez BURIAL VAULT DELIVERER AND INSTALLER.INTERLOCKER MAINTAINER Work Phone: [facility] 09-22-2023 11:09-0500 SaO2% (BldA) [Mass fraction] 98 % Meg Ortez BURIAL VAULT 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 08-21-2023 17:28-0500 Diastolic Blood Pressure Non-Invasive 60 mm[Hg] NIDAL CHOUJAA DO [facility] 08-21-2023 17:28-0500 Heart rate 83 /min NIDAL CHOUJAA DO [facility] 08-21-2023 17:28-0500 Mean blood pressure 73 mm[Hg] NIDAL CHOUJAA DO [facility] 08-21-2023 17:28-0500 Reason For Taking VItal Signs NIDAL CHOUJAA DO [facility] 08-21-2023 17:28-0500 Respiratory rate 16 /min NIDAL CHOUJAA DO [facility] 08-21-2023 17:28-0500 Systolic Blood Pressure Non-Invasive 98 mm[Hg] NIDAL CHOUJAA DO [facility] 08-21-2023 16:45-0500 Diastolic Blood Pressure Non-Invasive 57 mm[Hg] NIDAL CHOUJAA DO [facility] 08-21-2023 16:45-0500 Heart rate 85 /min NIDAL CHOUJAA DO [facility] 08-21-2023 16:45-0500 Respiratory rate 16 /min NIDAL CHOUJAA DO [facility] 08-21-2023 16:45-0500 Systolic Blood Pressure Non-Invasive 103 mm[Hg] NIDAL CHOUJAA DO [facility] 08-21-2023 14:50-0500 Diastolic Blood Pressure Non-Invasive 62 mm[Hg] NIDAL CHOUJAA DO [facility] 08-21-2023 14:50-0500 Mean blood pressure 73 mm[Hg] NIDAL CHOUJAA DO [facility] 08-21-2023 14:50-0500 Respiratory rate 16 /min NIDAL CHOUJAA DO [facility] 08-21-2023 14:50-0500 Systolic Blood Pressure Non-Invasive 96 mm[Hg] NIDAL CHOUJAA DO [facility] 08-21-2023 12:54-0500 Blood Pressure Location NIDAL CHOUJAA DO [facility] 08-21-2023 12:54-0500 Body temperature 97.16 [degF] NIDAL CHOUJAA DO [facility] 03-12-2023 15:02-0400 Body height 175.3 cm Ginette Lisy PA-C Work Phone: [facility] 03-12-2023 15:02-0400 Body temperature 98.4 [degF] Ginette [place] PA-C Work Phone: [facility] 03-12-2023 15:02-0400 Body weight 83.28 kg Ginette Lisy PA-C Work Phone: [facility] 03-12-2023 15:02-0400 Diastolic blood pressure 62 mm[Hg] Ginette Lisy PA-C Work Phone: [facility] 03-12-2023 15:02-0400 Heart rate 101 /min Ginette [place] PA-C Work Phone: [facility] 03-12-2023 15:02-0400 SaO2% (BldA) [Mass fraction] 98 % Ginette BARNHART-C Work Phone: [facility] 03-12-2023 15:02-0400 Systolic blood pressure 110 mm[Hg] Ginette Wasserman PA-C Work Phone: [facility] 03-11-2023 11:48-0400 Body temperature 98.6 [degF] Davina William BURIAL VAULT DELIVERER AND INSTALLER.INTERLOCKER MAINTAINER Work Phone: [facility] 03-11-2023 11:48-0400 Body weight 83.73 kg Davina William BURIAL VAULT DELIVERER AND INSTALLER.INTERLOCKER MAINTAINER Work Phone: [facility] 03-11-2023 11:48-0400 Diastolic blood pressure 76 mm[Hg] Davina William BURIAL VAULT DELIVERER AND INSTALLER.INTERLOCKER MAINTAINER Work Phone: [facility] 03-11-2023 11:48-0400 Heart rate 110 /min Davina William BURIAL VAULT DELIVERER AND INSTALLER.INTERLOCKER MAINTAINER Work Phone: [facility] 03-11-2023 11:48-0400 Respiratory rate 18 /min Davina William BURIAL VAULT DELIVERER AND INSTALLER.INTERLOCKER MAINTAINER Work Phone: [facility] 03-11-2023 11:48-0400 SaO2% (BldA) [Mass fraction] 99 % Davina William BURIAL VAULT DELIVERER AND INSTALLER.INTERLOCKER MAINTAINER Work Phone: [facility] 03-11-2023 11:48-0400 Systolic blood pressure 113 mm[Hg] Davina William BURIAL VAULT DELIVERER AND INSTALLER.INTERLOCKER MAINTAINER Work Phone: [facility] 01-16-2022 07:47-0400 Diastolic blood pressure 64 mm[Hg] Nery Ziegler MBBS Work Phone: [facility] 01-16-2022 07:47-0400 Heart rate 89 /min Nery Ziegler MBBS Work Phone: [facility] 01-16-2022 07:47-0400 Systolic blood pressure 118 mm[Hg] Nery Ziegler MBBS Work Phone: [facility] 01-16-2022 07:36-0400 Body height 172.7 cm Nery Toney SALCEDO Work Phone: [facility] 10-21-2021 16:21-0400 Body temperature 98.42 [degF] NORMA ECKERT DO [facility] 10-21-2021 16:21-0400 Diastolic blood pressure 84 mm[Hg] NORMA ECKERT DO [facility] 10-21-2021 16:21-0400 Heart rate 100 /min NORMA ECKERT DO [facility] 10-21-2021 16:21-0400 Respiratory rate 18 /min NORMA ECKERT DO [facility] 10-21-2021 16:21-0400 Systolic blood pressure 126 mm[Hg] NORMA ECKERT DO [facility] Encounters Encounter Date Encounter Type Care Provider Facility Start: 01-14-2025 End: 01-14-2025 Emergency department patient visit No Primary Care Physician Facility:[facility] Start: 01-10-2025 End: 01-10-2025 Emergency department patient visit Olaf Astudillo Facility:[facility] Start: 01-02-2025 ambulatory Alison Kellyu Facility: [facility] Start: 01-01-2025 End: 01-01-2025 Emergency department patient visit No Primary Care Physician Facility:[facility] Start: 11-30-2024 End: 11-30-2024 Emergency department patient visit No Primary Care Physician Facility:[facility] Start: 11-10-2024 ambulatory No Primary Car e Physician Facility:[facility] Start: 11-10-2024 End: 11-12-2024 Evaluation and management of inpatient Edwin Dumont Facility:[facility] Start: 10-05-2024 End: 10-05-2024 Office outpatient visit 40 minutes Alison Givens DO Work Phone: Neurology [facility] Comment on above: Local-rel symptc epi w cmplx prt seiz,not ntrct,w/o stat epi (Primary Dx) Start: 10-05-2024 ambulatory SELF SELF Facility:[facility] Start: 03-18-2024 End: 03-18-2024 Emergency department patient visit DR JENA SWANSON MD [facility] Start: 02-25-2024 End: 02-25-2024 Emergency department patient visit ROQUE MEJÍA DO [facility] Start: 02-23-2024 End: 02-23-2024 Emergency department patient visit No Primary Care Physician Facility:[facility] Start: 01-06-2024 End: 01-06-2024 [facility] Start: 12-08-2023 Orders Only Becky lynne PAJimC Work Phone: Orthopaedics Comment on above: Closed fracture of t uft of distal phalanx of finger (Primary Dx) Start: 11-14-2023 End: 11-14-2023 Emergency department patient visit NORMA ANNALISANavdeep DO [facility] Start: 11-12-2023 End: 11-12-2023 ambulatory GINETTE LISY Facility:[facility] Start: 11-12-2023 End: 11-12-2023 Patient encounter procedure Jaylyn Charlton PA Work Phone: [facility] Comment on above: Procedure not jennifer d out (Primary Dx) Start: 10-13-2023 End: 10-13-2023 Office outpatient visit 25 minutes Tonja Xie BURIAL VAULT DELIVERER AND INSTALLER-INTERLOCKER MAINTAINER Work Phone: Neurology 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 Comment on above: Injury of finger of left hand, initial encounter; Closed fracture of tuft of distal phalanx of finger Start: 09-24-2023 ambulatory VIET ESPARZA Facility:[facility] Start: 09-22-2023 End: 09-22-2023 Subsequent hospital visit by physician Xr [facility] Work Phone: Radiology Comment on above: Injury of finger of left hand, initial encounter [S69.92XA] Start: 09-22-2023 End: 09-22-2023 ambulatory MEG PÉREZ Facility:[facility] Start: 09-22-2023 End: 09-22-2023 Patient encounter procedure Meg Ortez BURIAL VAULT DELIVERER AND INSTALLER.INTERLOCKER MAINTAINER Work Phone: [facility] Comment on above: Injury of finger of left hand, initial encounter (Primary Dx); Closed fracture of tuft of distal phalanx of finger; Subungual hematoma of finger, initial encounter Start: 08-21-2023 End: 08-21-2023 Emergency department patient visit CYRILJOVITA TANYA DO [facility] Start: 03-12-2023 End: 03-12-2023 ambulatory GINETTE WASSERMAN Facility:[facility] Start: 03-12-2023 End: 03-12-2023 Patient encounter procedure Ginette Wasserman PA-C Work Phone: General Surgery Comment on above: Abscess of left thig h (Primary Dx) Start: 03-11-2023 End: 03-11-2023 ambulatory GINETTE WASSERMAN Facility:[facility] Start: 03-11-2023 End: 03-11-2023 Patient encounter procedure Davina Thomas APRN.MAT Work Phone: [facility] Comment on above: Cutaneous abscess of buttock (Primary Dx) Start: 05-29-2022 Telephone encounter [facility] Comment on above: Insurance Start: 01-16-2022 End: 01-16-2022 Subsequent hospital visit by physician Nery SALCEDO Work Phone: [facility] Comment on above: Arrived Start: 10-21-2021 End: 10-21-2021 Emergency department patient visit NORMA ECKERT [facility] Start: 01-14-2017 End: 05-19-2018 Patient requested procedure Becky Flor PA-C Work Phone: [facility] Procedures Date Procedure Procedure Detail Performing Clinician Start: 09-22-2023 Radex fingr minimum 2 views Meg Ortez APRN.INTERLOCKER MAINTAINER Work Phone: Plan of Treatment Date Care Activity Detail Author Start: 07-24-2032 Urine microalbumin profile DTaP,Tdap,Td Vaccine (11 - Td or Tdap) [facility] Start: 10-17-2028 Tetanus vaccination TETANUS [facility] Start: 10-17-2028 Urine microalbumin profile DTAP,TDAP,TD (4 - Td or Tdap) [facility] Start: 02-15-2025 End: 02-15-2025 Patient encounter procedure 02/15/2025 8:15 AM EDT Office Visit Neurology [facility] [address] [id number] Alison Thakkar DO [address] [place] [address] [facility] Start: 03-26-2024 Covid-19 Vaccine ( season) Covid-19 Vaccine ( season) [facility] Start: 03-26-2024 COVID-19 VACCINE ( season) COVID-19 VACCINE ( season) [facility] Start: 03-26-2024 Influenza vaccination [facility] Start: 12-13-2023 End: 12-13-2023 Patient encounter procedure 12/13/2023 10:30 AM EDT Office Visit Orthopaedics [address] [place] [address] Becky Flor PA-C [address] [place] [address] Injury of finger of left hand, initial encounter [S69.92XA]; Closed fracture of tuft of distal phalanx of finger [S62.639A] follow up per web request Orthopaedics Comment on above: Injury of finger of left hand, initial encounter [S69.92XA]; Closed fracture of tuft of distal phalanx of finger [S62.639A] follow up per web request Start: 07-26-2023 Behavioral Health Screening Behavioral Health Screening [facility] Start: 07-26-2023 Depression Assessment [facility] Start: 05-03-2023 PAP TESTING PAP TESTING [facility] Start: 05-03-2023 Screening for malign ant neoplasm of cervix Pap Testing [facility] Start: 03-26-2023 COVID-19 VACCINE ( season) COVID-19 VACCINE ( season) [facility] Start: 03-26-2023 Influenza vaccination C [facility] Start: 07-26-2022 DEPRESSION ASSESSMENT DEPRESSION ASS ESSMENT [facility] Start: 03-26-2022 Influenza vaccination O [facility] Start: 01-20-2022 End: 01-20-2022 Telemedicine consultation with patient 01/20/2022 Telemedicine Neurology Nery Ziegler MBBS [address] [place] [address] [facility] Start: 05-03-2021 Screening for malign ant neoplasm of cervix Cervical Cancer Screening [facility] Start: 2020 HPV TESTING HPV TESTING [facility] Start: 2020 Screening for malign ant neoplasm of cervix HPV Testing [facility] Start: 2011 Screening for malign ant neoplasm of cervix CERVICAL CANCER SCREENING DISCUSSION [facility] Start: 2009 Hepatitis B vaccination HEP B VACCINE (1 of 3 - 19+ 3-dose series) [facility] Start: 2009 Hepatitis B Vaccine (1 of 3 - 19+ 3-dose series) Hepatitis B Vaccine (1 of 3 - 19+ 3-dose series) [facility] Start: 2009 PNEUMOCOCCAL VACCINE SERIES (1 of 2 - PCV) PNEUMOCOCCAL VACCINE SERIES (1 of 2 - PCV) [facility] Start: 2009 Third diphtheria, tetanus and acellular pertussis (DTaP) vaccination TDAP (ADULT) [facility] Start: 2008 Anxiety Screening Anxiety Screening [facility] Start: 2008 Depression Screening Depression Scre ening [facility] Start: 2008 Tetanus vaccination TETANUS [facility] Start: 01-20-2008 HPV Vaccine (3 - 3-d ose series) HPV Vaccine (3 - 3-dose series) [facility] Start: 2005 HIV screening HIV SCREENING DISCUSSION [facility] Start: 1996 PNEUMOCOCCAL (1 - PCV) PNEUMOCOCCAL (1 - PCV) [facility] Start: 1996 Pneumococcal vaccination Pneumococcal Vaccine (1 of 2 - PCV) [facility] Start: 1996 PNEUMOCOCCAL VACCINE SERIES (1 - PCV) PNEUMOCOCCAL VACCINE SERIES (1 - PCV) [facility] Start: 1996 PNEUMOCOCCAL VACCINE SERIES (1 of 2 - PCV) PNEUMOCOCCAL VACCINE SERIES (1 of 2 - PCV) [facility] Start: 01-20-1991 COVID-19 VACCINE (#1) COVID-19 VACCI NE (#1) [facility] Start: 1990 HEPATITIS B (1 of 3 - 3-dose series) HEPATITIS B (1 of 3 - 3-dose series) [facility] Start: 1990 Hepatitis B Vaccine (1 of 3 - 3-dose series) Hepatitis B Vaccine (1 of 3 - 3-dose series) [facility] Start: 1990 Hepatitis C antibody , confirmatory test HEPATITIS C VIRUS SCREENING [facility] Start: 1990 Hepatitis C screening HEPATITI S C VIRUS SCREENING [facility] End: 01-16-2022 MR Brain WO contrast [facility] Comment on above: 1 Occurrences starti ng 01/16/2022 until 01/16/2022 End: 01-06-2025 XR Finger - left AP and Lateral and oblique XR DIGIT GENERAL 3V FRONTAL/LAT/OBL LEFT Radiology Routine Closed fracture of tuft of distal phalanx of finger 1 Occurrences starting 12/08/2023 until 01/06/2025 [facility] Work Phone: Comment on above: 1 Occurrences starti ng 12/08/2023 until 01/06/2025 [facility] Immunizations Immunization Date Immunization Notes Care Provider Opal gonzalez 10-17-2018 tetanus toxoid, redu windy diphtheria toxoid, and acellular pertussis vaccine, adsorbed Davina William BURIAL VAULT DELIVERER AND INSTALLER.INTERLOCKER MAINTAINER Work Phone: [facility] 05-02-2015 tetanus toxoid, redu windy diphtheria toxoid, and acellular pertussis vaccine, adsorbed Davina William BURIAL VAULT DELIVERER AND INSTALLER.INTERLOCKER MAINTAINER Work Phone: [facility] 09-23-2014 tetanus toxoid, redu windy diphtheria toxoid, and acellular pertussis vaccine, adsorbed Davina William BURIAL VAULT DELIVERER AND INSTALLER.INTERLOCKER MAINTAINER Work Phone: [facility] 09-10-2014 influenza, injectabl e, quadrivalent, preservative free Davina William BURIAL VAULT DELIVERER AND INSTALLER.INTERLOCKER MAINTAINER Work Phone: [facility] 09-10-2014 influenza virus vaccine, unspecified formulation Nery SALCEDO Work Phone: [facility] Payers Date Payer Category Payer Self-pay 2023 Unknown [id number] 2023 Unknown PENDING 2022 Medicaid [employer] [id number] 2022-Present [phone] [address] [place] [address] Medicaid [id number] 2022 Medicaid [id number] 2021 Unknown [id number] 1990 Unknown [id number] [id number] 1990 Unknown [id number] [id number] 1990 Unknown [id number] [id number] 1990 Unknown [id number] [id number] 1990 Unknown [id number] [id number] Unknown [id number] 2.16.840.1.753007.3.579.2.462 Unknown [id number] 2.16.840.1.367091.3.579.2.462 Unknown [id number] 2.16.840.1.202417.3.579.2.462 Unknown [id number] 2.16.840.1.537886.3.579.2.462 Unknown [id number] 2.16.840.1.439445.3.579.2.462 Unknown [id number] 2.16.840.1.523619.3.579.2.462 Unknown [id number] 2.16.840.1.707265.3.579.2.462 Unknown [id number] 2.16.840.1.032971.3.579.2.462 Unknown [id number] [id number] Unknown [id number] [id number] Social History Date Type Detail Facility Start: 04-09-2021 End: 03-18-2024 Tobacco smoking status Heavy tobacco smoker (finding) [facility] Sex Assigned At Female [facility] Start: 12-23-2021 End: 10-13-2023 Tobacco smoking status NHIS Smokes tobacco daily [facility] History of tobacco use Cigarette Smoker [facility] Start: 12-23-2021 End: 10-05-2024 Cigarettes smoked current (pack per day) - Reported 0.5 [facility] Start: 12-23-2021 End: 10-13-2023 Tobacco use and exposure Smokeless tobacco non-user [facility] Start: 01-16-2022 End: 02-24-2022 Alcohol intake Current drinker of alcohol (finding) [facility] Start: 12-23-2021 History SDOH Alcohol Comment occaisionaly [facility] Start: 10-02-2021 [facility] Start: 1990 Sex Assigned At Not on file [facility] Start: 03-11-2023 End: 09-22-2023 Alcohol intake Current non-drinker of alcohol (finding) [facility] Start: 03-11-2023 End: 10-05-2024 Tobacco use panel [facility] National Score (1-10 0), lower number is lower risk Not on file [facility] Start: 03-11-2023 Tobacco Comment 4-6 cigarettes a day [facility] Start: 10-13-2023 End: 10-05-2024 Alcoholic beverage intake Ex-drinker (finding) [facility] Start: 09-20-2020 Sex Female (finding) [facility] Start: 09-28-2024 Gender identity Identifies as female gender (finding) [facility] Start: 09-28-2024 Sexual orientation Heterosexual (fin ding) [facility] Functional Status Date Assessment Result Facility 03-18-2024 Functional Status ID band on, Call device within reach, Bed in low position, Wheels locked, Bedside Cart Locked, Visitor at bedside, Safety level maintained [facility] 02-25-2024 Functional Status Standard Safet y ID band on, Call device within reach, Bed in low position, Wheels locked, Visitor at bedside [facility] 11-14-2023 Functional Status Ambulation in Conrad, Ambulation in Room [facility] 08-21-2023 Functional Status Independent [facility] 08-21-2023 Functional Status Standard Safet y Safety level maintained [facility] 08-21-2023 Functional Status Awake [facility] 10-21-2021 Functional Status [facility] Mental Status Date Assessment Result Facility 03-18-2024 Mental Status Oriented x 4 [facility] 02-25-2024 Mental Status Orientation Oriented x 4 [facility] 11-14-2023 Mental Status Orientation Oriented x 4 [facility] 08-21-2023 Mental Status Orientation Oriented x 4 [facility] 08-21-2023 Mental Status [facility] 10-21-2021 Mental Status [facility] Clinical Notes 09-19-2018 to 10-05-2024 Alison Hernandez DO - 10/05/2024 8:15 AM EDTPatient InstructionsJaylyn Charlton PA - 11/12/2023 11:09 AM EDTCFLORIN Pedroza - 10/13/2023 8:20 AM EDTPatient Instructions Note Date & Type Note Facility 10-05-2024 History of Present illness Narrative [facility] Comprehensive Epilepsy Clinic Reason for Visit: [...] overall good. She is currently working at [employer] in [place]. She does have difficulty with her short [...] of questions or concerns. Alison Givens DO Sheet Sorter Department of Neurology, Epilepsy Division [facility] I spent approximately 49 minutes reviewing the chart prior to the appointment, in face to face counseling with the patient, and with documentation after the visit. documented in this encounter [facility] 10-05-2024 Instructions Alison Hernandez DO - [...] Neuromodulation: Vagus nerve stimulation (VNS) information: https://www.epilepsy.com/treatmen t/devices/vhlbj-psuel-tnjoriumioq -therapy Deep brain stimulation (DBS) information: https://www.epilepsy.com/treatmen t/devices/ddmr-cfjjt-ebmdhmxzxiw 4. Schedule your appointment with the epilepsy [...] you can call the Neurology clinic at [phone]. If you have access through [employer], you can contact me through that system as well. documented in this encounter [facility] 03-18-2024 Hospital Discharge instructions Patient [...] nail. This may need to be drained. [phone] [employer]. [address] [place] [address]. All rights reserved. This information is not intended as a substitute for professional medical care. Always follow your healthcare professional's instructions. Follow Up Care 03/18/2024 15:19:27 With:LEIGHTON LEIGH Address: [address] [place] [phone]- [phone] Business (1) When:5-7 days only if needed [facility] 03-18-2024 Note Discharge Instructions Thank you for allowing [facility] to assist you with your healthcare needs. The following is important discharge information regarding your hospital visit. Diagnosis from Today's Visit Thumb contusion What to Do Next Instructions from Your Care Team No qualifying data available. Post Acute Orders No qualifying data available. You Need to Schedule the Following Appointments Follow Up with LEIGHTON LEIGH When:Within 5-7 days, only if needed Where:[address] [place] [phone] Business (1) Allergies NKA Medications Please ask [...] nail. This may need to be drained. [phone] [employer]. [address] [place] [address]. All rights reserved. This information is not intended as a substitute for professional medical care. Always follow your healthcare professional's instructions. Additional Information VACCINATE! IT SAVES LIVES! Members of the community who have not yet received the COVID-19 vaccine and would like to receive it can visit one of [facility] vaccine clinics. There are many vaccine clinic locations within the [facility]. For locations and available times, please visit www.[email or web address].[place].g ov/. It is important to note that some COVID mobile vaccine clinics are held outdoors and may be canceled in rainy or stormy conditions. To learn more about pediatric vaccinations (ages 5-11), we invite you to visit the [employer] webpage. https://www.WeiPhone.coms.org/pa ges/6732-Voshj-Wbeqkqeqwgh-Freque slct-Oetvb-Cttjvhagw.html To learn more about the COVID-19 vaccine, we invite you to visit the CDC website for a list of frequently asked questions. https://www.cdc.gov/coronavirus/2 019-ncov/vaccines/faq.html [facility] [employer] Patient Portal Access Instructions: Stay connected with your healthcare team and access your personal medical information anytime with the [email or web address] Patient Portal. If you would like a full copy of your medical records please contact the [facility] Medical Records Department Wednesday through Wednesday between 8a.m. and 4:30p.m. Please follow the directions below to access the portal: 1.Access the email account you provided upon registration to the hospital.2.Look for an invitation email from [facility].3.Open the email and access the invitation link: Accept Invitation to [email or web address].Fill in the required noguera to create your account. Sign into [email or web address] with your username and password that you [...] you will allow to register on the [email or web address] Patient Portal for access to your information. You can also access the [email or web address] Patient Portal on the [employer] william. Simply click on Health Records under Health Data and then click on the Laurel logo. HOW TO SAFELY DISPOSE OF PRESCRIPTION [...] Call your local pharmacy or go to http://DoApp.Iencuentra/3W7Co3p to find one close to you.3.Make use of household items: Use cat litter or old coffee grounds to dispose medications if other options are not available. Mix your drugs with these household products, seal them in an airtight container and throw it into the garbage. Call [facility]: [phone] to be sure your drugs can be [...] aware that I should contact my doctor. Patient/Coat Fitter Signature: Date/Time: Relationship to Patient: ____ Witness Name/Signature: Date/Time: [facility] 03-18-2024 Note ORIGINAL EXAMINATION: THREE XRAY VIEWS [...] 03/18/2024 4:09:39 PM Ordering Provider: JENA SWANSON [facility] 02-25-2024 Hospital Discharge instructions Patient Education 02/25/2024 [...] the nail as it heals and regrows. [phone] [employer]. [address] [place] [address]. All rights reserved. This information is not intended as a substitute for professional medical care. Always follow your healthcare professional's instructions. Follow Up Care 02/25/2024 18:03:16 With:LISSA XIE DO Address: [address] [place] [address] [place] [address]- [phone] When:2-4 days With:Follow up with primary care provider Address:Unknown When:2-[address] [facility] 02-25-2024 Emergency department Discharge summary Discharge Instructions Thank you for allowing [facility] to assist you with your healthcare needs. [...] LISSA XIE DO When:Within 2-4 days Where:[address] [facility] [place] [address]- [phone] Follow Up with Follow up with primary [...] the nail as it heals and regrows. [phone] [employer]. [address] [place] [address]. All rights reserved. This information is not intended as a substitute for professional medical care. Always follow your healthcare professional's instructions. Additional Information VACCINATE! IT SAVES LIVES! Members of the community who have not yet received the COVID-19 vaccine and would like to receive it can visit one of [facility] vaccine clinics. There are many vaccine clinic locations within the [facility]. For locations and available times, please visit www.gettheshot.coronavirus.[place].g ov/. It is important to note that some COVID mobile vaccine clinics are held outdoors and may be canceled in rainy or stormy conditions. To learn more about pediatric vaccinations (ages 5-11), we invite you to visit the [employer] webpage. https://www.WeiPhone.coms.org/pa ges/7776-Jxlps-Nwllopfpziq-Freque kcmk-Udrgv-Rjilxdoae.html To learn more about the COVID-19 vaccine, we invite you to visit the CDC website for a list of frequently asked questions. https://www.cdc.gov/coronavirus/2 019-ncov/vaccines/faq.html [facility] [employer] Patient Portal Access Instructions: Stay connected with your healthcare team and access your personal medical information anytime with the [email or web address] Patient Portal. If you would like a full copy of your medical records please contact the [facility] Medical Records Department Wednesday through Wednesday between 8a.m. and 4:30p.m. Please follow the directions below to access the portal: 1.Access the email account you provided upon registration to the [facility].2.Look for an invitation email from [facility].3.Open the email and access the invitation link: Accept Invitation to [email or web address].Fill in the required noguera to create your account. Sign into [email or web address] with your username and password that you [...] you will allow to register on the [facility] Patient Portal for access to your information. You can also access the [facility] Patient Portal on the [employer]. Simply click on Health Records under Health Data and then click on the Jiff logo. HOW TO SAFELY DISPOSE OF PRESCRIPTION [...] Call your local pharmacy or go to http://DoApp.Iencuentra/7H9Ck7b to find one close to you.3.Make use of household items: Use cat litter or old coffee grounds to dispose medications if other options are not available. Mix your drugs with these household products, seal them in an airtight container and throw it into the garbage. Call [facility]: [phone] to be sure your drugs can be [...] aware that I should contact my doctor. Patient/Coat Fitter Signature: Date/Time: Relationship to Patient: ____ Witness Name/Signature: Date/Time: [facility] 02-25-2024 Note ORIGINAL EXAMINATION: THREE XRAY VIEWS [...] joint, probably a foreign body. Interpreted by: aMurisio Naik Preliminary Report By: Maurisio Naik Electronically signed By Maurisio Naik Dictated Date: 02/25/2024 6:43:47 PM Prelim Date: 02/25/2024 6:46:27 PM Sign Date: 02/25/2024 6:46:27 PM Ordering Provider: CARMEN BROWN [facility] 11-14-2023 Hospital Discharge instructions Patient Education 11/14/2023 [...] Boil returns when you are at home [phone] [employer]. [address] [place] [address], [place] [address]. All rights reserved. This information is not intended as a substitute for professional medical care. Always follow your healthcare professional's instructions. Follow Up Care 11/14/2023 17:11:01 With:Call Physician Referral Address:Unknown When:2-[address] [facility] 11-14-2023 Note Discharge Instructions Thank you for allowing [facility] to assist you with your healthcare needs. [...] When Why Instructions Last Dose New acetaminophen-hydrocodone ([place] 325- 5 mg oral tablet) 1 tab(s) [...] Boil returns when you are at home 8522-1222 [employer]. [address] [place] [address], [place] [address]. All rights reserved. This information is not intended as a substitute for professional medical care. Always follow your healthcare professional's instructions. Additional Information VACCINATE! IT SAVES LIVES! Members of the community who have not yet received the COVID-19 vaccine and would like to receive it can visit one of [facility] vaccine clinics. There are many vaccine clinic locations within the [facility]. For locations and available times, please visit www.gettheshot.coronavirus.[place].g ov/. It is important to note that some COVID mobile vaccine clinics are held outdoors and may be canceled in rainy or stormy conditions. To learn more about pediatric vaccinations (ages 5-11), we invite you to visit the [employer] [facility] webpage. https://www.WeiPhone.coms.org/pa ges/7516-Icxqf-Gcetzggurim-Freque wfvw-Wlsiq-Ituulvris.html To learn more about the COVID-19 vaccine, we invite you to visit the CDC website for a list of frequently asked questions. https://www.cdc.gov/coronavirus/2 019-ncov/vaccines/faq.html [facility] [employer] Patient Portal Access Instructions: Stay connected with your healthcare team and access your personal medical information anytime with the [email or web address] Patient Portal. If you would like a full copy of your medical records please contact the [facility] Medical Records Department Wednesday through Wednesday between 8a.m. and 4:30p.m. Please follow the directions below to access the portal: 1.Access the email account you provided upon registration to the hospital.2.Look for an invitation email from [facility].3.Open the email and access the invitation link: Accept Invitation to [email or web address].Fill in the required noguera to create your account. Sign into [email or web address] with your username and password that you [...] you will allow to register on the [email or web address] Patient Portal for access to your information. You can also access the [email or web address] Patient Portal on the [employer]. Simply click on Health Records under Health Data and then click on the Jiff logo. HOW TO SAFELY DISPOSE OF PRESCRIPTION [...] Call your local pharmacy or go to http://DoApp.Iencuentra/0P3Ry7k to find one close to you.3.Make use of household items: Use cat litter or old coffee grounds to dispose medications if other options are not available. Mix your drugs with these household products, seal them in an airtight container and throw it into the garbage. Call [facility]: [phone] to be sure your drugs can be [...] aware that I should contact my doctor. Patient/Coat Fitter Signature: Date/Time: Relationship to Patient: ____ Witness Name/Signature: Date/Time: [facility] 11-12-2023 Note HNO ID: [id number] Author: JAYLYN CHARLTON PA Service: ? Author Type: Physician Custom Miller Type: Progress Notes Filed: 11/12/2023 11:14 Note [...] to this plan. She will go to [facility] 11-12-2023 History of Present illness Narrative [...] to this plan. She will go to [facility]. documented in this encounter [facility] 10-13-2023 History of Present illness Narrative Images from the original note were not included. Delon Haji was seen in the Comprehensive Epilepsy Center at [facility] on 10/13/2023. She is here today for [...] your epilepsy that we offer at the [facility]? Yes If you have tried 2 or 3 anti-seizure medications and your seizures are still not controlled, are you interested in learning about surgical options for your epilepsy that we can offer at the [facility]? No PHQ9 Depression Screening: No data [...] tremor: none noted Reflexes: not tested Coordination: Jkyohn-ej-cyuh intact bilaterally. Sensation: not tested Gait: Normal [...] Ziegler. Carmen Chu MD Neurology, PGY-2 Pager #[phone] Attending Physician Note - Procedure I discussed the indications for this procedure with the resident. I have reviewed and confirm the procedure report as documented in the resident note. MATIAS Birmingham Sheet Sorter Neurology, Epilepsy Division [facility] Neuroimaging: BRAIN MRI WITHOUT CONTRAST 01/16/2022: 1. [...] seizure rescue medications and when to call . We discussed seizure first aid: Generally speaking, [...] year with her employer. Encouraged use of [employer] to send messages to provider as needed for questions and concerns or can call our clinic @ [phone]. She will return in 3-6 months with epilepsy attending (Dr Givens or Dr Durand) or sooner if clinically indicated. Signed, Tonja Xie MSN, BURIAL VAULT DELIVERER AND INSTALLER-INTERLOCKER MAINTAINER [facility] Department of Neurology - Epilepsy Division [address] [place] [address] - 7th floor [place] [address] Pager: [phone] Time to complete visit: I spent approximately 38 minutes reviewing the chart prior to the appointment, in face to face counseling with the patient, and with documentation after the visit. Note to patient: The 21st Century Cures Act makes medical notes like these available to patients in the interest of transparency. However, be advised this is a medical document. It is intended as lzrl-ri-fzud communication. It is written in medical language and may contain abbreviations or verbiage that are unfamiliar. It may appear blunt or direct. Medical documents are intended to carry relevant information, facts as evident, and the clinical opinion of the practitioner. documented in this encounter [facility] 10-13-2023 Instructions FLORIN Cottrell - 10/13/2023 8:20 AM EDT Images from the original note were not included. myseekit CBD Oil, CBD Gummies and Cream Official Site (Bixti.com) https://www.Bixti.com/ We discussed Vimpat as a second medication [...] persist or become intolerable, please call the [facility] Neurology Clinic at [phone]. If you develop a rash while taking [...] after regular office hours, a neurologist is snapper on for urgent issues. Call the neurology office number ([phone]) to reach the neurologist snapper on if you are continuing to experience many more seizures than usual despite use of your rescue medications. Please try to remember that the neurologist snapper on may not have access to your complete medical record and may not be as familiar with your history. If you have access through [facility] [employer], you can contact us through that system as well. If you have documents that need completed or sent to our clinic, please have them faxed to [phone]. It is always best to call during [...] the refill is ready for you to medicinal plant picker. Seizure First Aid Training Can Be Found Here (it's free!): [email or web address] [email or web address] documented in this encounter [facility] 09-27-2023 Note HNO ID: [id number] Author: BECKY FLOR PA-C Service: ? Author Type: Physician Custom Miller Type: Progress Notes Filed: 10/05/2023 09:08 Note Text: Becky Flor PA-C Department of Orthopaedics Orthopaedics [address] [place] [address] Dept: [phone] Dept September 27, 2023 CHIEF COMPLAINT: New [...] the most painful for her. This is [facility]. ASSESSMENT: S62.887U Closed fracture of tuft of distal phalanx [...] tuft of the LEFT 3rd distal phalanx. Crew Leader Gluing: DARREN Transcribe Date/Time: Sep 22 2023 11:32A [...] daily. (Patient not taking: Reported on 03/03/2019) Kvsecivm-Qt-Fpg-Fe-FA tab (more content not included)... [facility] 09-27-2023 History of Present illness Narrative Becky Flor PA-C Department of Orthopaedics Orthopaedics [address] [facility] [address] Dept: [phone] Dept September 27, 2023 CHIEF COMPLAINT: New [...] the most painful for her. This is [facility]. ASSESSMENT: No diagnosis found. PLAN: She [...] tuft of the LEFT 3rd distal phalanx. Crew Leader Gluing: PSCB Transcribe Date/Time: Sep 22 2023 11:32A [...] daily. (Patient not taking: Reported on 03/03/2019) Bzauwydh-Gi-Lhx-Fe-FA tab Take 1 tablet by mouth once [...] anxiety) This note was partially generated using IdeaForest voice recognition system, and there may be some incorrect words, spellings, and punctuation that were not noted in checking the note before saving. Becky Flor PA-C Patient presents with: Left Hand - [...] home for pain. documented in this encounter [facility] 09-27-2023 Note HNO ID: [id number] Author: GIULIANA BIRD RN Service: ? Author [...] taking anything else at home for pain. [facility] 09-27-2023 Note HNO ID: [id number] Author: VIET ESPARZA DO Service: ? Author Type: Physician Type: Progress Notes Filed: 09/27/2023 08:56 Note Text: opened in error no charge, visit rescheduled. [facility] 09-27-2023 History of Present illness Narrative opened in error no charge, visit rescheduled. documented in this encounter [facility] 09-27-2023 Instructions Viet Esparza V, DO - 09/27/2023 8:56 AM EST opened in error- documented in this encounter [facility] 09-22-2023 Instructions Meg Ortez APRN.CNP - [...] when lying down. documented in this encounter [facility] 09-22-2023 History of Present illness Narrative [...] PATIENT PRESENTS WITH AN IMPLANTABLE OR ATTACHED SKIMMER SCOOP OPERATOR: No RADIOLOGY DEPARTMENT: General X-ray: Exam(s) Completed: Upper Extremity X-Ray(s): Fingers/Thumb, left PERIPHERAL IV DATA: Not applicable SIGNED BY: RT Jimmy(Berna) September 22, 2023 11:23 AM documented in this encounter [facility] 09-22-2023 Note HNO ID: [id number] Author: CRISTINA MEJIAS RT(R) Service: Radiology Author [...] PATIENT PRESENTS WITH AN IMPLANTABLE OR ATTACHED SKIMMER SCOOP OPERATOR: No RADIOLOGY DEPARTMENT: General X-ray: Exam(s) Completed: Upper Extremity X-Ray(s): Fingers/Thumb, left PERIPHERAL IV DATA: Not applicable SIGNED BY: CELIA Marquez) September 22, 2023 11:23 AM [facility] 09-22-2023 Note HNO ID: [id number] Author: MEG ORTEZ APRN.INTERLOCKER MAINTAINER Service: ? Author Type: Nurse Practitioner Type: [...] history is provided by the patient. No foreign language professor was used. Musculoskeletal Problem This is a [...] daily. (Patient not taking: Reported on 03/03/2019) Rylceuse-El-Qxs-Fe-FA tab Take 1 tablet by mouth once [...] ear normal. Left (more content not included)... [facility] 09-22-2023 History of Present illness Narrative This note was created using [employer] Solution[employer]. Subjective Delon Haji is a 33 year [...] history is provided by the patient. No foreign language professor was used. Musculoskeletal Problem This is a [...] daily. (Patient not taking: Reported on 03/03/2019) Eqhwtaqf-By-Rhc-Fe-FA tab Take 1 tablet by mouth once [...] RX Keflex F/U with hand Meg Ortez APRN.INTERLOCKER MAINTAINER documented in this encounter [facility] 08-21-2023 Hospital Discharge instructions Patient Education [...] has sustained an injury during the seizure. 8414-8095 [employer]. [address] [place] [address]. All rights reserved. This information is not intended as a substitute for professional medical care. Always follow your healthcare professional's instructions. Follow Up Care 08/21/2023 12:44:12 With:[facility] neurology Address: When:2-4 days With:Follow up with primary care provider Address:Unknown When:2-4 days With:Call Physician Referral Address:Unknown When:2-[address] [facility] 08-21-2023 Emergency department Discharge summary Discharge Instructions Thank you for allowing [facility] to assist you with your healthcare needs. [...] Schedule the Following Appointments Follow Up with [facility] neurology When Within 2-4 days Where: [...] has sustained an injury during the seizure. [phone] [employer]. [address] [place] [address]. All rights reserved. This information is not intended as a substitute for professional medical care. Always follow your healthcare professional's instructions. Additional Information VACCINATE! IT SAVES LIVES! Members of the community who have not yet received the COVID-19 vaccine and would like to receive it can visit one of [facility] vaccine clinics. There are many vaccine clinic locations within the [facility]. For locations and available times, please visit [email or web address] It is important to note that some COVID mobile vaccine clinics are held outdoors and may be canceled in rainy or stormy conditions. To learn more about pediatric vaccinations (ages 5-11), we invite you to visit the [facility] webpage. [email or web address]/pa [email or web address]-Ccnki-Qnrjzcxbfsr-[email or web address] dyqo-Qkdbr-Mamwtnsun.html To learn more about the COVID-19 vaccine, we invite you to visit the CDC website for a list of frequently asked questions. https://www.cdc.gov/coronavirus/2 019-ncov/vaccines/faq.html [facility] Patient Portal Access Instructions: Stay connected with your healthcare team and access your personal medical information anytime with the [facility] Patient Portal. If you would like a full copy of your medical records please contact the [facility] Medical Records Department Wednesday through Wednesday between 8a.m. and 4:30p.m. Please follow the directions below to access the portal: 1.Access the email account you provided upon registration to the [facility].2.Look for an invitation email from [facility].3.Open the email and access the invitation link: Accept Invitation to [facility]4.Fill in the required noguera to create your account. Sign into [email or web address] with your username and password that you [...] you will allow to register on the [facility] Patient Portal for access to your information. You can also access the [facility] Patient Portal on the [employer]. Simply click on Health Records under Health Data and then click on the Jiff logo. HOW TO SAFELY DISPOSE OF PRESCRIPTION [...] Call your local pharmacy or go to [email or web address] to find one close to you.3.Make use of household items: Use cat litter or old coffee grounds to dispose medications if other options are not available. Mix your drugs with these household products, seal them in an airtight container and throw it into the garbage. Call [facility]: [phone] to be sure your drugs can be [...] aware that I should contact my doctor. Patient/Coat Fitter Signature: Date/Time: Relationship to Patient: ____ Witness Name/Signature: Date/Time: [facility] 08-21-2023 Note Sinus rhythm EKG interpretation is noted and agreed to in Cerner. The interpretation of this patient's EKG contributed directly to the care and management of this patient. Electronic Signature: JACOB MARTÍNEZ DO 08/21/2023 14:34:[address] [facility] 08-21-2023 Note ORIGINAL EXAMINATION: CT OF THE [...] Date: 08/21/2023 2:08:47 PM Ordering Provider: JACOB NEGRONRishabh [facility] 08-21-2023 Evaluation + Plan note Diagnostic Tests PendingLamotrigine (Lamictal), Serum 08/21/[address] [facility] 03-24-2023 Note HNO ID: [id number] Author: Ginette Wasserman PA-C Service: ? Author Type: Physician Custom Miller Type: Progress Notes Filed: 03/24/2023 1:00 PM Note Text: HISTORY AND PHYSICAL Delon Haji 1990 REFERRING PHYSICIAN: No ref. provider found CHIEF COMPLAINT: left thigh abscess HPI: Delon is a 32 year old female with a complaint of a painful abscess on the left posterior thigh x 2 days. Denies fever or chills. The patient was seen in [facility] and was started on oral [...] taking: Reported on 03/03/2019) 30 capsule 1 Rktpscnt-Ek-Onr-Fe-FA tab Take 1 tablet by mouth once [...] is instructed to (more content not included)... [facility] 03-24-2023 History of Present illness Narrative HISTORY AND PHYSICAL Delon Haji 1990 REFERRING PHYSICIAN: No ref. provider found CHIEF COMPLAINT: left thigh abscess HPI: Delon is a 32 year old female with a complaint of a painful abscess on the left posterior thigh x 2 days. Denies fever or chills. The patient was seen in [facility] and was started on oral antibiotics. [...] taking: Reported on 03/03/2019) 30 capsule 1 Lrwedoaw-Kx-Vej-Fe-FA tab Take 1 tablet by mouth once [...] Cheryl Arizmendi RN documented in this encounter [facility] 03-12-2023 Instructions Cheryl Arizmendi RN - 03/12/2023 3:50 PM EDT The following instructions are important for you related to your office visit today with the [facility] General Surgeons. Instructions After ABSCESS DRAINAGE Tylenol [...] you should contact our office immediately @ [phone] and ask to be transferred to the General Surgery department. documented in this encounter [facility] 03-12-2023 Note HNO ID: [id number] Author: Cheryl Arizmendi RN Service: ? Author [...] Visit completed when applicable. Cheryl Arizmendi RN [facility] 03-12-2023 Nurse Note REVIEW OF SYSTEMS: General: [...] Tequila Barry LPN documented in this encounter [facility] 03-11-2023 Note HNO ID: [id number] Author: Davina Thomas APRN.INTERLOCKER MAINTAINER Service: ? Author Type: Nurse Practitioner Type: [...] daily. (Patient not taking: Reported on 03/03/2019) Yqgiworl-Fb-Zfg-Fe-FA tab Take 1 tablet by mouth once [...] - CONSULT TO GENERAL SURGERY Davina Thomas APRN.INTERLOCKER MAINTAINER [facility] 03-11-2023 History of Present illness Narrative Images [...] daily. (Patient not taking: Reported on 03/03/2019) Urpwafwe-Vd-Tnn-Fe-FA tab Take 1 tablet by mouth once [...] - CONSULT TO GENERAL SURGERY Davina Thomas APRN.INTERLOCKER MAINTAINER documented in this encounter [facility] 06-01-2022 Telephone encounter Note Medication Access Team coordinated the following: [facility] Clinics: MS/Neurology Prior Authorization Per the patient's insurance provider, [facility], the prior authorization for Lamotrigine 300mg SR (on-label) was approved. Authorization number: [id number] Authorization start date: 05/27/22 Authorization end date: 05/26/23 Non-Specialty Prescriptions: 1, 6-8 min Bettye Jacques [facility] 06-01-2022 Miscellaneous Notes Medication Access Team coordinated the following: [facility] Clinics: MS/Neurology Prior Authorization Per the patient's insurance provider, [facility], the prior authorization for Lamotrigine 300mg SR (on-label) was approved. Authorization number: [id number] Authorization start date: 05/27/22 Authorization end date: 05/26/23 Non-Specialty Prescriptions: 1, 6-8 min Bettye Jacques Felix condon Lamotrigine OBEY is still under review documented in this encounter [facility] 05-29-2022 Telephone encounter Note Felix condon Lamotrigine OBEY is still under review [facility] 10-21-2021 Hospital Discharge instructions Patient Education [...] and water are not available, use alcohol-based multifocal lens inspector to keep from spreading the infection to [...] Yellow color of the eyes or skin [id number] [employer]. [address] [place] [address], [place] [address]. All rights reserved. This information is not intended as a substitute for professional medical care. Always follow your healthcare professional's instructions. Follow Up Care 10/21/2021 16:21:25 With:Call Physician Referral Address:Unknown When:2-4 days [facility] Daniel 09-19-2018 History of Past i llness Narrative [...] of this encounter (statuses as of 03/11/2023) [facility] History of Past illness Narrative* Problem Noted Date Diagnosed Date Resolved Date IUGR (intrauterine growth re striction) affecting care of mother, third trimester, fetus 1 09/19/2018 12/13/2018 Dichorionic diamniotic twin , antepartum 05/19/2018 12/13/2018 Overview: 09/16/18 - twice weekly BPPs & NST at least once per week () - Nkiunj Tate MD IUGR of baby A: Twice [...] of this encounter (statuses as of 03/24/2023) [facility] History of Past illness Narrative* Problem [...] of this encounter (statuses as of 09/22/2023) [facility] History of Past illness Narrative* Problem [...] of this encounter (statuses as of 09/27/2023) [facility] History of Past illness Narrative* Problem [...] of this encounter (statuses as of 09/27/2023) [facility] History of Past illness Narrative* Problem [...] of this encounter (statuses as of 11/12/2023) [facility] No data available for this section [facility] Evaluation note* Diagnosis Seizure Other convulsions [facility] Diagnosis Cutaneous abscess of buttock- Primary Cellulitis and abscess of buttock [facility] Diagnosis Abscess of left thigh- Primary Cellulitis and abscess of leg, except foot [facility] Diagnosis Injury of finger of left hand, initial encounter- Primary Closed fracture of tuft of distal phalanx of finger Closed fracture of distal phalanx or phalanges of hand Subungual hematoma of finger, initial encounter [facility] Diagnosis Injury of finger of left hand, initial encounter Closed fracture of tuft of distal phalanx of finger Closed fracture of distal phalanx or phalanges of hand [facility]* Diagnosis Closed fracture of tuft of distal phalanx of finger- Primary Closed fracture of distal phalanx or phalanges of hand Pain of finger of left hand Pain in limb [facility] Diagnosis Nonintractable epilepsy without status epilepticus, unspecified epilepsy type- Primary [facility] Diagnosis Procedure not carried out- Primary Procedure not carried out for other reasons [facility] Diagnosis Closed fracture of tuft of distal phalanx of finger- Primary Closed fracture of distal phalanx or phalanges of hand [facility] Diagnosis Injury of finger of left hand, initial encounter [facility] Diagnosis Local-rel symptc epi w cmplx prt seiz,not ntrct,w/o stat epi- Primary [facility] No data available for this section [facility] Reason for referral (narrative)* Diagnostic Procedure Only (Routine) - Pending Review Specialty Diagnoses / Procedures Referred By Huber t Referred To Contact XR IMAGING Diagnoses Closed fracture of tuft of distal phalanx of finger Procedures XR DIGIT GENERAL 3V FRONTAL/LAT/OBL LEFT RADEX FINGR MINIMUM 2 VIEWS Becky Flor PA-C [address] [place] [address] [place] [address] Referral ID Status Reason Start Date Expiration Date Visits Requested Visits Authorized [id number] Pending Review Auto-Generat ed Referral 12/08/2023 01/06/2025 1 1 [facility] for referral (narrative)* Diagnostic Procedure Only (Urgent) - Closed Specialty Diagnoses / Procedures Referred By Contac t Referred To Contact XR IMAGING Diagnoses Injury of finger of left hand, initial encounter Procedures XR DIGIT GENERAL 3V FRONTAL/LAT/OBL LEFT RADEX FINGR MINIMUM 2 VIEWS Meg Ortez APRN.INTERLOCKER MAINTAINER [address] [place] [address] [place] [address] Referral ID Status Reason Start Date Expiration Date V isits Requested Visits Authorized [id number] Closed Auto-Generate d Referral 09/22/2023 10/21/2024 1 1 [facility] for visit Narrative* Diagnostic Procedure Only (Urgent) - Closed Specialty Diagnoses / Procedures Referred By Contac t Referred To Contact XR IMAGING Diagnoses Injury of finger of left hand, initial encounter Procedures XR DIGIT GENERAL 3V FRONTAL/LAT/OBL LEFT RADEX FINGR MINIMUM 2 VIEWS Meg Ortez APRN.INTERLOCKER MAINTAINER [address] [place] [address] [place] [address] Referral ID Status Reason Start Date Expiration Date V isits Requested Visits Authorized [id number] Closed Auto-Generate d Referral 09/22/2023 10/21/2024 1 1 [facility] Reason for Referral Specialty Diagnoses / Procedures Referred By Contac t Referred To Contact Orthopedics Diagnoses Injury of finger of left hand, initial encounter Closed fracture of tuft of distal phalanx of finger Procedures CONSULT TO ORTHOPAEDICS OFFICE/OUTPATIENT [facility] 60 MINUTES Meg Ortez, BURIAL VAULT DELIVERER AND INSTALLER.INTERLOCKER MAINTAINER [address] [place] [address] Referral ID Status Reason Start Date Expiration Date Visits Requested Visits Authorized [id number] Authorized PCP Requested Referral 09/22/2023 09/21/2024 1 1 Specialty Diagnoses / Procedures Referred By Contac t Referred To Contact XR IMAGING Diagnoses Injury of finger of left hand, initial encounter Procedures XR DIGIT GENERAL 3V FRONTAL/LAT/OBL LEFT RADEX FINGR MINIMUM 2 VIEWS Ortez, Meg, BURIAL VAULT DELIVERER AND INSTALLER.INTERLOCKER MAINTAINER [address] [place] [address] [place] [address] Referral ID Status Reason Start Date Expiration Date V isits Requested Visits Authorized [id number] Closed Auto-Generate d Referral 09/22/2023 10/21/2024 1 1 Specialty Diagnoses / Procedures Referred By Contac t Referred To Contact General Surgery Diagnoses Cutaneous abscess of buttock Procedures CONSULT TO GENERAL SURGERY OFFICE/OUTPATIENT [facility] 60-74 MINUTES Davina Thomas, BURIAL VAULT DELIVERER AND INSTALLER.INTERLOCKER MAINTAINER [address] [place] [address] Referral ID Status Reason Start Date Expiration Date Visits Requested Visits Authorized [id number] Authorized PCP Requested Referral 03/11/2023 03/10/2024 1 1 Specialty Diagnoses / Procedures Referred By Contac t Referred To Contact Diagnoses Seizure Procedures MRI BRAIN WITHOUT CONTRAST NM MRI BRAIN Nery Ziegler MBBS [address] [phone] Referral ID Status Reason Start Date Expiration Date Visits Re quested Visits Authorized [id number] Closed 12/23/2021 01/17/2023 1 1 Summary Purpose [...] Care Team (unrecognized sect ion and content) Broadband Technician Relationship Specialty Start Date End Date Nery Ziegler MBBS [address] [phone] PCP - General Neurology 07/26/21 Broadband Technician Relationship Specialty Start Date End Date Tonja Xie, BURIAL VAULT DELIVERER AND INSTALLER-INTERLOCKER MAINTAINER [address] [phone] Nurse Practitioner Neurology 02/24/22 [facility] [address] [address] 02/24/22 Broadband Technician Relationship Specialty Start Date End Date Tonja Xie, BURIAL VAULT DELIVERER AND INSTALLER-INTERLOCKER MAINTAINER [address] [place] [phone] Nurse Practitioner Neurology 02/24/22 [facility] [address] [address] 02/24/22 Broadband Technician Relationship Specialty Start Date End Date Tonja Xie, BURIAL VAULT DELIVERER AND INSTALLER-INTERLOCKER MAINTAINER [address] [place] [phone] Nurse Practitioner Neurology 02/24/22 [facility] [address] [address] 02/24/22 Reason for Visit (unrecogniz ed section and content) Reason Comments New Middle finger Fracture Middle finger Specialty Diagnoses / Procedures Referred By Contac t Referred To Contact Orthopedics Diagnoses Injury of finger of left hand, initial encounter Closed fracture of tuft of distal phalanx of finger Procedures CONSULT TO ORTHOPAEDICS OFFICE/OUTPATIENT [facility] 60 MINUTES Meg Ortez, BURIAL VAULT DELIVERER AND INSTALLER.INTERLOCKER MAINTAINER [address] [place] [address] [facility] [address] [place] [address] Referral ID Status Reason Start Date Expiration Date V isits Requested Visits Authorized [id number] Closed PCP Requested Referral 09/22/2023 09/21/2024 1 1 Specialty Diagnoses / Procedures Referred By Huber t Referred To Contact Diagnoses Seizure Procedures MRI BRAIN WITHOUT CONTRAST NM MRI BRAIN Nery Ziegler MBBS [address] [phone] Referral ID Status Reason Start Date Expiration Date Visits Re quested Visits Authorized [id number] Closed 12/23/2021 01/17/2023 1 1 Reason Onset [...] section and content) DATE CREATED AUTHOR 04/04/[address] [facility] DATE CREATED AUTHOR AUTHOR'S ORGANIZ ATION 01/10/2024 [facility] DATE CREATED AUTHOR AUTHOR'S ORGANIZ ATION 01/13/2024 [facility] DATE CREATED AUTHOR AUTHOR'S ORGANIZ ATION 03/22/2024 [facility] ([place] DATE CREATED AUTHOR AUTHOR'S ORGANIZ ATION 01/02/2025 [facility] DATE CREATED AUTHOR AUTHOR'S ORGANIZ ATION 01/19/2025 [facility] Source Comments (unrecognize d section and content) In the event this informatio n is protected by the Federal Confidentiality of Alcohol and Drug Abuse Patient Records regulations: The Federal rules restrict any use of the information to criminally investigate or prosecute any alcohol or drug abuse patient.[facility] the event this information is protected by the Federal Confidentiality of Alcohol and Drug Abuse Patient Records regulations: The Federal rules restrict any use of the information to criminally investigate or prosecute any alcohol or drug abuse patient.[facility] CenterIn the event this information is protected by the Federal Confidentiality of Alcohol and Drug Abuse Patient Records regulations: The Federal rules restrict any use of the information to criminally investigate or prosecute any alcohol or drug abuse patient.[facility] CenterIn the event this information is protected by the Federal Confidentiality of Alcohol and Drug Abuse Patient Records regulations: The Federal rules restrict any use of the information to criminally investigate or prosecute any alcohol or drug abuse patient.[facility] CenterIn the event this information is protected by the Federal Confidentiality of Alcohol and Drug Abuse Patient Records regulations: The Federal rules restrict any use of the information to criminally investigate or prosecute any alcohol or drug abuse patient.[facility] CenterIn the event this information is protected by the Federal Confidentiality of Alcohol and Drug Abuse Patient Records regulations: The Federal rules restrict any use of the information to criminally investigate or prosecute any alcohol or drug abuse patient.[facility] CenterIn the event this information is protected by the Federal Confidentiality of Alcohol and Drug Abuse Patient Records regulations: The Federal rules restrict any use of the information to criminally investigate or prosecute any alcohol or drug abuse patient.[facility] CenterIn the event this information is protected by the Federal Confidentiality of Alcohol and Drug Abuse Patient Records regulations: The Federal rules restrict any use of the information to criminally investigate or prosecute any alcohol or drug abuse patient.[facility] FOR RECORDS PERTAINING TO PATIENTS WHO [...] BE BASED ON THE PRIMARY CLINICAL RECORDS. [facility] [employer] [facility]. provides no warranty or guarantee of the accuracy or completeness of information in this document.
--- NOTE | 2025-02-18 18:57 | ED.VIS.BACK ---
HPI History of Present Illness Chief Complaint: Back Detail of Chief Complaint: Low back pain that started several days ago. Informant: patient Onset/Context/Timing Onset: Days Context: Sudden Onset Chronic pain exacerbated by: Not applicable Injury: - (No history of trauma indirect or direct) Timing: Continuous Quality: Aching Location: Lumbar Current Severity: Severe Maximum Severity: Severe Worsened by: improves with Movement, Ambulation, Bending and Lifting Relieved by: Nothing Associated Symptoms Associated Symptoms: - (No saddle paresthesia or anesthesia. No recent dental procedure.); Negative for Numbness, Tingling, Radiation to Right Leg, Radiation to Left Leg, Fever, Abdominal Pain, Dysuria, Unable to Ambulate, Unable to Transfer, Urinary Retention, Urinary Incontinence, Constipation or Fecal Incontinence Narrative Narrative: Patient is a 34-year-old woman. She presents with atraumatic low back pain. She denies fever, chills night sweats. She denies bowel bladder dysfunction. No saddle paresthesia or anesthesia. Denies foot drop. Denies buckling of her knees going up or down steps. She denies any type of recent procedure dental or otherwise. She denies dysuria, frequency, urgency or hematuria. Her pain is worse with movement. She has no history of back problems. There is a history of muscle skeletal pain, however. She denies symptoms of claudication. Prior similar symptoms: No Recent Illness/Hospitalization: No [facility] Medical History IUD (intrauterine device) in place Alcohol abuse Obesity Anxiety and depression History of chlamydia infection Tobacco use History of pre-term labor History of substance abuse Seizure disorder Home Medications ?Medication ?Instructions ?Recorded ?Last Taken ?Type lamotrigine 200 mg tablet,extended 800 mg PO 1700 11/10/24 11/29/24 History release 24 hr multivitamin (Daily Multi-Vitamin 1 tab PO DAILY 01/10/25 Unknown History tablet) orphenadrine citrate 100 mg 100 mg PO BID 7 days #14 tabs 01/14/25 Unknown Rx tablet,extended release prednisone 20 mg tablet 20 mg PO DAILY 5 days #5 tabs 01/14/25 Unknown Rx hydrocodone-acetaminophen 5-325mg 1 tab PO Q6H PRN PRN Pain 3 days 02/18/25 Unknown Rx 5mg-325mg #10 TABLETS naproxen 500 mg tablet 500 mg PO BID #14 tabs 02/18/25 Unknown Rx Allergy/AdvReac Type Severity Reaction Status Date / Time tomato AdvReac Vomiting Verified 02/18/25 17:34 Family History Father Alcohol abuse Cataract Mother Seizures Surgical History No history of previous surgery Social History household members: spouse Smoking Status: Light Smoker (<10/day) alcohol intake: current alcohol intake frequency: 3 or more drinks per day Alcohol type: hard liquor details: 11/10/24 reporting ~ 1/2 bottle liquor daily. substance use type: former substance user Date of last use: Opiates/pain killers, methamphetamine prior, clean since 2010. what type of physical activity do you participate in: walking frequency: daily ROS ROS ED Constitutional Constitutional ED: Denies chills, fever(s), subjective, sweats or weight loss Eyes Eyes: Denies blurry vision, change in vision or diplopia ENT ENT ED: Denies ear pain, rhinorrhea or sore throat Cardiovascular Cardiovascular: Denies chest pain or palpitations Respiratory/Chest Respiratory/Chest: Denies dyspnea or dyspnea on exertion Gastrointestinal Gastrointestinal: Denies abdominal pain, diarrhea, nausea or vomiting Genitourinary Genitourinary ED: Reports other Details: There is no history of renal or ureterolithiasis. ; Denies dysuria, hematuria or urinary frequency Musculoskeletal Musculoskeletal: Reports back pain and neck pain; Denies arthralgias or myalgias Integumentary Denies rash Neurologic Neurologic: Denies paresthesias or weakness Hematologic/Lymphatic Hematologic/Lymphatic: Denies easy bleeding or easy bruising EXAM Physical Exam Const Vital Signs: 02/18/25 17:33 Temperature 97.8 F Temperature Source Oral Pulse Rate 107 H Respiratory Rate 16 Blood Pressure 142/83 H Blood Pressure Mean 102 Pulse Ox 100 Positive well nourished and well developed Constitutional Narrative: Patient appears in obvious discomfort. She grimaces with minimal movement. Her blood pressure is elevated and she is tachycardic. General Appearance ED: well developed HEENT Reports moist mucous membranes HEENT Narrative: Multiple piercings. Nose otherwise normal. Ears normal. Posterior pharynx erythema or exudate. Uvula midline. No deviation of the tongue with protrusion. Eyes PERRL and EOMs intact bilaterally General Eye ED: Negative for pale conjunctiva or scleral icterus Neck no lymphadenopathy, supple and no JVD Resp normal respiratory effort and clear to auscultation bilaterally Cardio regular rhythm, S1 normal heart sound, S2 normal heart sound and no murmurs Rate: tachycardic GI normal to inspection, nondistended, normoactive bowel sounds, soft to palpation, non-tender, non-distended and no masses Back/Spine normal to inspection; Negative for no thoracic nor lumbar tenderness Back/Spine Narrative: EHLs intact bilateral. Normal sensation L3-S1 dermatome. Patellar ankle reflex are 2+ and symmetric. There is no clonus or Babinski sign noted right or left. Gait observed with no foot drop. Able to walk on toes and heels. Able to perform 1 legged squat on the right and left. Patient has reproducible low back pain. Having her bend to the right and left causes discomfort on the left side. Flexion is very limited and causes pain on the left side. Having her stand on her right or left foot does not cause any increased discomfort. There are no dermatologic lesions noted. General Back: Negative for CVA tenderness Cervical Spine: Negative for cervical spine tenderness Thoracic Spine / Upper Back: paraspinal muscle tenderness Lumbar Spine / Lower Back: straight leg raise negative bilaterally Extremity normal to inspection and no clubbing, cyanosis or edema General Extremety ED: Negative for tenderness Neuro oriented x3 and no sensory deficits noted Sensorium / Orientation: alert Motor Exam: strength 5/5 throughout Deep Tendon Reflexes: Rt Patellar (L4): 2+, Lt Patellar (L4): 2+, Rt Ankle (S1): 2+ and Lt Ankle (S1): 2+ Deep Tendon Reflexes Back: Rt Patellar (L4): 2+, Lt Patellar (L4): 2+, Rt Ankle (S1): 2+ and Lt Ankle (S1): 2+ Plantar Reflex: Downgoing: bilateral Psych mental status grossly normal Skin no rashes or lesions noted and no wounds MDM MDM MDM Narrative Medical decision making narrative: Patient's history and physical is consistent with muscular pain. There is no concern for cauda equina. There is no concern for spontaneous epidural hematoma or epidural abscess. IV was established. Patient was treated with IV ketorolac and morphine. She only received 4 mg of morphine. When she was reassessed at 190 she states her pain went from a 10 to a 9. She was ordered 6 mg of morphine at this time. Will reassess in 30 minutes. History & Record Review Additional record(s) reviewed:: Prior ED visit (November 2019 she was seen for back pain. She has had multiple visits for anxiety, depression, breakthrough seizures minor orthopedic injuries ankle and knee.) and Prior labs Treatment and Re-Evaluation Narrative: Patient was reassessed at 192. She states her pain now is a 7. She received additional dose of morphine and was discharged home. She was discharged with prescription of [place]. Discharge Plan Triage Chief Complaint: Back ED Provider: Olaf Astudillo Dx/Rx/DC Orders Clinical Impression: Acute myofascial strain of lumbosacral region, GERD (gastroesophageal reflux disease), Failure of outpatient treatment Instructions: ED Back Pain (Acute or Chronic) Prescriptions: New hydrocodone-acetaminophen 5-325 mg tablet 1 tab PO Q6H PRN PRN (Reason: Pain) 3 Days Qty: 10 0RF naproxen 500 mg tablet 500 mg PO BID Qty: 14 0RF No Action lamotrigine 200 mg tablet extended release 24hr 800 mg PO 1700 prednisone 20 mg tablet 20 mg PO DAILY 5 Days Qty: 5 0RF orphenadrine citrate 100 mg tablet extended release 100 mg PO BID 7 Days Qty: 14 0RF multivitamin [Daily Multi-Vitamin] Tablet 1 tab PO DAILY Primary Care Provider: Care Physician,No Primary Referrals: Care Physician,No Primary [Primary Care Provider] - Activity Restrictions/Additional Instructions: If no improvement in 3 days follow-up with your primary care provider. The name of your primary care provider is listed on your insurance card issued to you by [employer]. Apply ice to your back 6-10 times a day for the next 3 to 5 days Print Language: Ethiopian Disposition Disposition: Home, Self Care
[2025-02-18 19:52] VITALS: BP 142/83; PULSE 107; RESP 16; TEMP 36.6; O2SAT 100
== END 2025-02-18 20:10 | disposition home or self-care (01) ==
PROVIDERS: Emergency Provider Emergency Medicine; Visit Provider Emergency Medicine
DX: S39.012A Strain of muscle, fascia and tendon of lower back, initial encounter (principal); F17.200 Nicotine dependence, unspecified, uncomplicated; K21.9 Gastro-esophageal reflux disease without esophagitis; X58.XXXA Exposure to other specified factors, initial encounter
CPT/HCPCS: 96374; 96375; 96376; 99282; A4216; J2405

== ENCOUNTER 2025-05-02 12:50 | Emergency (ER) | payer MEDICAID, SELFPAY ==
[2025-05-02 12:51] VITALS: BP 130/70; PULSE 89; RESP 18; TEMP 36.8; O2SAT 100; BMI 33.2
[2025-05-02 14:24] VITALS: O2SAT 100
--- NOTE | 2025-05-02 14:30 | RAD_ITS ---
PROCEDURE: CHEST PA AND LATERAL 05/02/2025 REASON FOR EXAM: RIGHT SIDED CHEST PAIN WITH PLEURITIC COMPONENT TECHNIQUE: Procedure Code: RADCXR Modality: DX Procedure: CHEST PA AND LATERAL COMPARISON: Prior study dated March 25, 2023. FINDINGS: Hardware: EKG electrodes are seen. Heart: The heart size is normal. Mediastinum: The mediastinal contour is unremarkable. Lungs: The lungs are clear. Bones: The bones are unremarkable. RAD/Chest PA and Lateral IMPRESSION: NO ACUTE FINDINGS. Reading Location: [id number]
[2025-05-02 14:47] LABS: Hematocrit 39.2 % (37-47); Hemoglobin 13.5 g/dL (12.0-15.0); Immature Granulocytes Count 0.030 X10^3/uL (0.0-0.0); Mean Corp Hgb Conc 34.4 g/dL (32-36); Mean Corpuscular Volume 94.5 fL (81-99); Mean Platelet Vol. 8.8 fl (6.2-12.0); NRBC Flagged by Analyzer 0 % (0-5); Platelet Count 296 K/mm3 (150-450); RBC Distribution Width CV 12.9 % (11.6-14.6); RBC Distribution Width SD 44.9 fl (35.1-43.9); Red Blood Count 4.15 M/mm3 (4.2-5.4); White Blood Count 10.7 K/mm3 (4.4-11.0)
[2025-05-02 14:51] VITALS: BP 124/66; PULSE 72; RESP 17; O2SAT 98
[2025-05-02 14:57] LABS: AST(SGOT) 14 U/L (<=31); Alanine Aminotransfer ALT/SGPT 11 U/L (<=34); Albumin, Serum 4.4 g/dL (3.5-5.0); Alkaline Phosphatase 78 U/L (35-104); Anion Gap 4 (5-15); BUN 7 mg/dL (4-19); BUN/Creat Ratio 11.5 RATIO (10-20); Bilirubin, Direct 0.21 mg/dL (0.00-0.30); Calcium,Total 8.0 mg/dL (7.6-11.0); Carbon Dioxide 30.0 mmol/L (21.0-32.0); Chloride 105 mmol/L (98-108); Estimated Creatinine Clearance 162.60 ml/min (50-250); Globulin 2.6 g/dL (2.2-4.2); Glucose 101 mg/dL (70-99); Potassium 4.3 mmol/L (3.3-5.1)
--- NOTE | 2025-05-02 15:10 | EX.ED.DYSGE1 ---
HPI History of Present Illness Chief Complaint: Shortness of Breath Detail of Chief Complaint: Shortness of breath and right-sided chest pain that radiates through to her Informant: patient Onset/Context/Timing Onset: Today Context: Sudden Onset Timing: Continuous Quality: Shortness of breath, right-sided chest pain rating to her back Location: Right side of her torso anterior and posterior Current Severity: Mild Maximum Severity: Moderate Worsened by: Breathing Relieved by: Nothing Associated Symptoms Associated Symptoms: No upper respiratory tract infectious system. No leg pain, swelling discol Narrative Narrative: Patient is a 34-year-old woman. She presents because of right sided chest pain that radiates to her back. She does report a pleuritic component. She denies rhinorrhea, congestion, postnasal drainage sore throat the past month. She has a cough in the morning which she attributes to smoking. She smokes 1/3 pack/day. She has no history of VTE. She has no risk factors for VTE. She does have a history of seizures. She denies food intolerance. There is no family history of cholelithiasis. She has no known history of liver disease. She denies alcohol use or drug use. She denies nausea, vomiting or diarrhea. She denies black or maroon-colored stool. She has no history of GERD. There is no history of direct or indirect trauma. Prior similar symptoms: No Recent Illness/Hospitalization: No [facility] Medical History Smoker IUD (intrauterine device) in place Alcohol abuse Obesity History of chlamydia infection Tobacco use History of pre-term labor Anxiety and depression History of substance abuse Seizure disorder Home Medications ?Medication ?Instructions ?Recorded ?Last Taken ?Type lamotrigine 200 mg tablet,extended 800 mg PO 1700 11/10/24 11/29/24 History release 24 hr multivitamin (Daily Multi-Vitamin 1 tab PO DAILY 01/10/25 Unknown History tablet) orphenadrine citrate 100 mg 100 mg PO BID 7 days #14 tabs 01/14/25 Unknown Rx tablet,extended release prednisone 20 mg tablet 20 mg PO DAILY 5 days #5 tabs 01/14/25 Unknown Rx hydrocodone-acetaminophen 5-325mg 1 tab PO Q6H PRN PRN Pain 3 days 02/18/25 Unknown Rx 5mg-325mg #10 TABLETS naproxen 500 mg tablet 500 mg PO BID #14 tabs 02/18/25 Unknown Rx naproxen 500 mg tablet 500 mg PO BID #14 tabs 05/02/25 Unknown Rx Allergy/AdvReac Type Severity Reaction Status Date / Time tomato AdvReac Vomiting Verified 05/02/25 12:53 Family History Father Alcohol abuse Cataract Mother Seizures Surgical History No history of previous surgery Social History household members: spouse Smoking Status: Light Smoker (<10/day) alcohol intake: current alcohol intake frequency: 3 or more drinks per day Alcohol type: hard liquor details: 11/10/24 reporting ~ 1/2 bottle liquor daily. substance use type: former substance user Date of last use: Opiates/pain killers, methamphetamine prior, clean since 2010. what type of physical activity do you participate in: walking frequency: daily ROS ROS ED Constitutional Constitutional ED: Denies chills, fever(s), subjective or sweats Eyes Eyes: Denies blurry vision or change in vision ENT ENT ED: Denies ear pain, rhinorrhea or sore throat Cardiovascular Cardiovascular: Reports chest pain; Denies orthopnea, palpitations, paroxysmal nocturnal dyspnea or racing heartbeat Respiratory/Chest Respiratory/Chest: Reports cough and dyspnea; Denies dyspnea on exertion, orthopnea, paroxysmal nocturnal dyspnea or sputum Gastrointestinal Gastrointestinal: Denies abdominal pain, diarrhea, melena, nausea or vomiting Genitourinary Genitourinary ED: Denies dysuria, hematuria or urinary frequency Musculoskeletal Musculoskeletal: Reports back pain; Denies arthralgias or myalgias Integumentary Denies rash Neurologic Neurologic: Denies paresthesias or weakness Hematologic/Lymphatic Hematologic/Lymphatic: Reports systems reviewed and no addt'l complaints, except as documented EXAM Physical Exam Const Vital Signs: 05/02/25 12:51 05/02/25 14:24 05/02/25 14:51 Temperature 98.3 F Temperature Source Oral Pulse Rate 89 72 Respiratory Rate 18 17 Respiratory Effort Normal Non-Labored Respiratory Depth Normal Respiratory Pattern Normal Blood Pressure 130/70 H 124/66 H Blood Pressure Mean 90 85 Pulse Ox 100 98 Oxygen Delivery Method Room Air Room Air Room Air Positive well nourished and well developed Constitutional Narrative: Blood pressure slightly elevated. General Appearance ED: well developed and NAD; Negative for pallor HEENT HEENT Narrative: Head is atraumatic and normocephalic. Ears normal. Nares patent. Posterior pharynx is normal. Eyes PERRL and EOMs intact bilaterally General Eye ED: Negative for pale conjunctiva or scleral icterus Neck no lymphadenopathy, supple and no JVD Chest Wall inspection of chest normal and palpation of chest normal Chest Narrative: Patient reported pain to palpation to light touch. Resp normal respiratory effort and clear to auscultation bilaterally Cardio regular rate, regular rhythm, S1 normal heart sound, S2 normal heart sound and no murmurs GI normal to inspection, nondistended, normoactive bowel sounds, non-tender, non-distended and no masses; Negative for hepatosplenomegaly Palpation: Negative for tender or guarding Back/Spine Back/Spine Narrative: Inspection is normal. Extremity normal to inspection Extremity Narrative: There is no asymmetry, swelling, discoloration, leg vein distention, palpable cords or tenderness along the distribution of the deep venous system. Neuro oriented x3 and CN's II-XII intact bilaterally Sensorium / Orientation: alert Psych mental status grossly normal Skin no rashes or lesions noted, no wounds and skin turgor normal General Skin Exam: elasticity normal; Negative for jaundice or pallor MDM MDM MDM Narrative Medical decision making narrative: Differential diagnosis would include pleurisy, pneumonia, pneumothorax possible atypical muscle pain. Doubt cholelithiasis phthisis/biliary colic/cholecystitis since she has a negative clinical Coles sign and no intolerance to greasy or fried foods. Patient was PERC negative and Wells score less than 3. For this reason D-dimer was not obtained. Lab Data Attestation: I reviewed the patient's lab results. Lab results narrative: CBC is unremarkable. Basic metabolic panel is normal. Lactate is normal. Liver enzymes are normal. Labs: Laboratory Results - last 24 hr 05/02/25 14:15 WBC 10.7 RBC 4.15 L Hgb 13.5 Hct 39.2 MCV 94.5 MCH 32.5 H MCHC 34.4 RDW Std Deviation 44.9 H RDW Coeff of Abiodun 12.9 Plt Count 296 MPV 8.8 Immature Gran % (Auto) 0.300 Neut % (Auto) 62.7 Lymph % (Auto) 26.3 Phelps % (Auto) 7.8 Eos % (Auto) 2.2 Baso % (Auto) 0.7 Absolute Neuts (auto) 6.7 Absolute Lymphs (auto) 2.82 Nucleated RBC % 0 Sodium 138 Potassium 4.3 Chloride 105 Carbon Dioxide 30.0 Anion Gap 4 L BUN 7 Creatinine 0.62 L Estim Creat Clear Calc 162.60 Est GFR (MDRD) Non-Af 120 BUN/Creatinine Ratio 11.5 Glucose 101 H Lactic Acid < 1.0 Calcium 8.0 Total Bilirubin 0.57 Direct Bilirubin 0.21 AST 14 ALT 11 Alkaline Phosphatase 78 Total Protein 7.0 Albumin 4.4 Globulin 2.6 Radiography Chest X-Ray - ED: 2 View and Read by ED Physician (Independent reviewed interpreted by me as negative for pneumonia, effusion or pneumothorax. Cardiac silhouette and size normal. [place] is unremarkable. Osseous trucks reveal no acute process.) Diagnostic Testing: Clinical Impression(s) from Imaging Studies Chest X-Ray 05/02/25 14:30 IMPRESSION: NO ACUTE FINDINGS. Reading Location: [facility] Differential Diagnosis Chest pain/SOB: pulmonary embolism Reason(s) PE less likely: Positive for PERC negative, Well's <3, not tachycardic and not hypoxic, ACS ACS: Positive for history not suggestive of ischemia pain, pneumothorax Reason(s) pneumothorax less likely: Positive for bilateral breath sounds and [employer] withhout PTX, pneumonia Reason(s) pneumonia less likely: Positive for no infiltrate on CXR, no elevation in WBC count, no noted fever and symptoms not consistent with acute infection and aortic dissection Reason(s) Aortic dissection less likely:: Positive for normal vascular exam, no history of HTN, normal neurological exam, no significant risk factors for dissection, no widened mediastinum on CXR, pain not sudden onset, no ripping/tearing pain and blood pressure appropriate in ED Treatment and Re-Evaluation :: Patient was informed of results. Will place on NSAIDs. Discharge Plan Triage Chief Complaint: Shortness of Breath Other Complaint: Back ED Provider: Olaf Astudillo Dx/Rx/DC Orders Clinical Impression: Chest pain, pleuritic, Elevated blood pressure reading without diagnosis of hypertension Instructions: ED Pleurisy Prescriptions: New naproxen 500 mg tablet 500 mg PO BID Qty: 14 0RF No Action lamotrigine 200 mg tablet extended release 24hr 800 mg PO 1700 prednisone 20 mg tablet 20 mg PO DAILY 5 Days Qty: 5 0RF orphenadrine citrate 100 mg tablet extended release 100 mg PO BID 7 Days Qty: 14 0RF hydrocodone-acetaminophen 5-325 mg tablet 1 tab PO Q6H PRN PRN (Reason: Pain) 3 Days Qty: 10 0RF naproxen 500 mg tablet 500 mg PO BID Qty: 14 0RF multivitamin [Daily Multi-Vitamin] Tablet 1 tab PO DAILY Primary Care Provider: Care Physician,No Primary Referrals: Care Physician,No Primary [Primary Care Provider, Medical] Print Language: Turkmen Disposition Disposition: Home, Self Care
[2025-05-02 15:42] VITALS: BP 112/71; PULSE 74; RESP 16; TEMP 36.6; O2SAT 100
== END 2025-05-02 15:43 | disposition home or self-care (01) ==
PROVIDERS: Emergency Provider Emergency Medicine; Visit Provider Emergency Medicine
DX: R09.1 Pleurisy (principal); G40.909 Epilepsy, unspecified, not intractable, without status epilepticus; R06.02 Shortness of breath; R03.0 Elevated blood-pressure reading, without diagnosis of hypertension; F41.9 Anxiety disorder, unspecified; F32.A Depression, unspecified; F17.200 Nicotine dependence, unspecified, uncomplicated; Z79.899 Other long term (current) drug therapy
CPT/HCPCS: 71046; 80048; 80076; 83605; 85025; 93005; 96374; 99285; A4216

== ENCOUNTER 2025-07-22 20:16 | Emergency (ER) | payer SELFPAY ==
[2025-07-22 20:16] VITALS: BP 148/98; PULSE 124; RESP 18; TEMP 35.8; O2SAT 99; BMI 32.1
--- NOTE | 2025-07-22 20:23 | EX.ED.DYSGE1 ---
HPI History of Present Illness Chief Complaint: Seizure [facility] Medical History Smoker IUD (intrauterine device) in place Alcohol abuse Obesity History of chlamydia infection Tobacco use History of pre-term labor Anxiety and depression History of substance abuse Seizure disorder Home Medications ?Medication ?Instructions ?Recorded ?Last Taken ?Type lamotrigine 200 mg tablet,extended 800 mg PO 1700 11/10/24 11/29/24 History release 24 hr multivitamin (Daily Multi-Vitamin 1 tab PO DAILY 01/10/25 Unknown History tablet) orphenadrine citrate 100 mg 100 mg PO BID 7 days #14 tabs 01/14/25 Unknown Rx tablet,extended release prednisone 20 mg tablet 20 mg PO DAILY 5 days #5 tabs 01/14/25 Unknown Rx hydrocodone-acetaminophen 5-325mg 1 tab PO Q6H PRN PRN Pain 3 days 02/18/25 Unknown Rx 5mg-325mg #10 TABLETS naproxen 500 mg tablet 500 mg PO BID #14 tabs 02/18/25 Unknown Rx naproxen 500 mg tablet 500 mg PO BID #14 tabs 05/02/25 Unknown Rx clobazam 10 mg tablet (Onfi) 10 mg PO DAILY 14 days #14 tabs 07/22/25 Unknown Rx Allergy/AdvReac Type Severity Reaction Status Date / Time tomato AdvReac Vomiting Verified 07/22/25 20:17 Family History Father Alcohol abuse Cataract Mother Seizures Surgical History No history of previous surgery Social History household members: spouse Smoking Status: Light Smoker (<10/day) alcohol intake: current alcohol intake frequency: 3 or more drinks per day Alcohol type: hard liquor details: 11/10/24 reporting ~ 1/2 bottle liquor daily. substance use type: former substance user Date of last use: Opiates/pain killers, methamphetamine prior, clean since 2010. what type of physical activity do you participate in: walking frequency: daily EXAM Physical Exam Const Vital Signs: 07/22/25 20:16 Temperature 96.5 F L Temperature Source Temporal Pulse Rate 124 H Respiratory Rate 18 Blood Pressure 148/98 H Blood Pressure Mean 114 Pulse Ox 99 Oxygen Delivery Method Room Air [facility] [place] Narrative Medical decision making narrative: HISTORY OF PRESENT ILLNESS: Chief complaint: Breakthrough seizure 35-year-old female history of seizures on Lamictal presents for seizure. Per report patient was found down in the kitchen history is provided by patient and family. Notes pt had typical seizure activity just [employer]. ? head trauma. Notes compliance with home medications. No she is drinking approximately 1 per day but has not drank today. Denies other illicit drug use. Denies vomiting or diarrhea. Denies fever or neck stiffness. Denies any sick contacts REVIEW OF SYSTEMS: Pertinent positives: Seizure Pertinent negatives: As per HPI PHYSICAL EXAM: Nursing triage notes reviewed, Vital signs reviewed Constitutional: please see [facility] HENT: MMM Eyes: Pupils equal round and reactive to light, Extraocular muscles intact Neck: No stridor, no JVD, full neck ROM Lungs: Clear to auscultation, No wheezing or rales. No increased work of breathing, no conversational dyspnea, no accessory muscle use, no nasal flaring. No respiratory distress noted Heart: Regular rate and rhythm, No murmurs, No rubs and No gallops, 2+ distal pulses (radial, femoral, posterior tibial) in all extremities Abdomen: Soft, there is no tenderness, rigidity, rebound or guarding, no obvious peritoneal signs, no palpable pulsatile abdominal masses, no auscultated abdominal bruit : No CVAT Extremities: No edema Neuro: No new focal neurological deficits, cranial nerves II through XII intact, 5/5 strength in all present extremities. Intact sensation to light touch in all present extremities, 2+ reflexes bilateral patella tendons. Skin: No rash or lesions noted MEDICAL DECISION MAKING: Chief Complaint: please see HPI External records reviewed: Reviewed prior ED visits. Reviewed prior imaging studies Factors affecting care: As per HPI Social determinants of health: History of alcohol abuse History obtained from others: Consults: none [facility] Narrative: Patient was initially tachycardic otherwise afebrile saturating at 99% room air. Exam without focal neurologic deficits. The patient does not appear postictal. There is no sign of obvious trauma to the head or neck. I considered the following differential diagnosis: Breakthrough seizure, hypoglycemia, electrolyte disturbance, traumatic injury to the brain I obtained a broad lab and imaging workup to further determine if the patient was suffering from a life-threatening etiology. Initially stabilized patient to milligrams IV Ativan ALL IMAGES (IF OBTAINED) HAVE BEEN PERSONALLY REVIEWED AND INTERPRETED BY MYSELF. I have personally reviewed the patient's chest x-ray. Chest x-ray is unremarkable for pulmonary edema, pneumothorax, pneumonia or focal cardiopulmonary abnormality. CT brain negative for ICH EKG with sinus tachycardia rate 112, normal axis, normal intervals, no STEMI CBC without leukocytosis, severe anemia, no thrombocytopenia. No sign of significant infection given no leukocytosis serum test negative no sign of eclampsia BMP without evidence of significant electrolyte abnormalities, no anion gap, no acute kidney injury. On re-evaluation patient remained neurovascular intact. The patient is appropriate for discharge home as I cannot identify life-limiting etiology to explain her symptoms. Is likely an exacerbation of underlying seizure disorder breakthrough seizure. Discussed prompt neurology follow-up. Discussed strict return precautions. Discussed maintaining compliance with home antiseizure medications. The patient and/or family, caregivers express understanding. The patient and/or family, caregivers agrees with the plan. Shared decision making: I will have a discussion with the patient and or visitors regarding risk/benefits of further testing or admission. They will be made aware of of the risk/benefits inherent in this decision they will be given the opportunity to voice understanding. Total critical care time today provided was at least 0 minutes. This excludes separately billable procedures. Critical care time (if documented) is secondary to the patient having high probability of clinically significant/life threatening deterioration in the patient's condition which required my urgent intervention. Impression: 1. History of epilepsy 2. Breakthrough seizure Dispo: Discharge home This note was generated with [employer] dictation software. It may contain incorrect words, spelling, and punctuation that were not noted in review of the chart prior to signing. Lab Data Labs: Laboratory Results - last 24 hr 07/22/25 20:39 WBC 10.7 RBC 4.35 Hgb 13.8 Hct 40.2 MCV 92.4 MCH 31.7 MCHC 34.3 RDW Std Deviation 41.5 RDW Coeff of Abiodun 12.2 Plt Count 268 MPV 8.8 Immature Gran % (Auto) 0.500 Neut % (Auto) 66.9 Lymph % (Auto) 23.7 [place] % (Auto) 5.6 Eos % (Auto) 2.5 Baso % (Auto) 0.8 Absolute Neuts (auto) 7.2 Absolute Lymphs (auto) 2.55 Nucleated RBC % 0 Sodium 138 Potassium 3.8 Chloride 105 Carbon Dioxide 22.3 Anion Gap 10 BUN 6 Creatinine 0.70 Estim Creat Clear Calc 140.22 Est GFR (MDRD) Non-Af 115 BUN/Creatinine Ratio 8.6 L Glucose 129 H Calcium 9.0 Serum , Qual NEGATIVE Radiography Diagnostic Testing: Clinical Impression(s) from Imaging Studies Chest X-Ray 07/22/25 20:35 IMPRESSION: No acute cardiopulmonary process. Reading Location: [facility] Brain CT 07/22/25 20:45 IMPRESSION: 1. No acute intracranial hemorrhage, midline shift or mass effect. If symptoms persist, further evaluation with MRI is recommended. 2. No significant change from the prior exam. Reading Location: [facility] Discharge Plan Triage Chief Complaint: Seizure ED Provider: Jack Sandoval Dx/Rx/DC Orders Instructions: ED Seizure, Recurrent (Adult) Prescriptions: New clobazam [Onfi] 10 mg tablet 10 mg PO DAILY 14 Days Qty: 14 0RF No Action lamotrigine 200 mg tablet extended release 24hr 800 mg PO 1700 prednisone 20 mg tablet 20 mg PO DAILY 5 Days Qty: 5 0RF orphenadrine citrate 100 mg tablet extended release 100 mg PO BID 7 Days Qty: 14 0RF hydrocodone-acetaminophen 5-325 mg tablet 1 tab PO Q6H PRN PRN (Reason: Pain) 3 Days Qty: 10 0RF naproxen 500 mg tablet 500 mg PO BID Qty: 14 0RF naproxen 500 mg tablet 500 mg PO BID Qty: 14 0RF multivitamin [Daily Multi-Vitamin] Tablet 1 tab PO DAILY Primary Care Provider: Care Physician,No Primary Referrals: Timoteo Pratt MD [Non-Staff -Ordering Privileges, Neurology] Activity Restrictions/Additional Instructions: Thank you for trusting us with your care today! Please take Tylenol (2 pills, 650 mg), ibuprofen (2 pills, 400 mg) every 6 hours as needed for pain and fever control. Please return to the emergency department if your symptoms change or worsen. Please follow with your primary care physician for further outpatient evaluation and management. Print Language: Swedish Disposition Disposition: Home, Self Care
--- NOTE | 2025-07-22 20:30 | EKG12_ITS ---
Test Reason : DYSRHYTHMIA Blood Pressure : */* mmHG Vent. Rate : 112 BPM Atrial Rate : 112 BPM P-R Int : 128 ms QRS Dur : 84 ms QT Int : 312 ms P-R-T Axes : 45 69 21 degrees QTcB Int : 425 ms Sinus tachycardia Otherwise normal ECG Confirmed by Ayan Garza ([id number]), news video editor HOSEA GOLD ([id number]) on 07/24/2025 9:55:30 AM Referred By: Confirmed By: Ayan Garza
--- NOTE | 2025-07-22 20:35 | RAD_ITS ---
EXAM: XR Chest, 1 View CLINICAL INDICATION: BREAKTHROUGH SEIZURE TECHNIQUE: Frontal view of the chest. COMPARISON: XR Chest dated 05/02/2025 FINDINGS: LUNGS AND PLEURAL SPACES: Unremarkable. No consolidation. No pneumothorax. HEART: Unremarkable. No cardiomegaly. MEDIASTINUM: Unremarkable. Normal mediastinal contour. BONES/JOINTS: Unremarkable. No acute fracture. RAD/Chest 1 View (Portable) IMPRESSION: No acute cardiopulmonary process. Reading Location: [id number]
[2025-07-22] MEDS: 0.9% Normal Saline (1000mL) 1,000 ML 999 ML IV (20:38)
[2025-07-22 20:45] LABS: Hematocrit 40.2 % (37-47); Hemoglobin 13.8 g/dL (12.0-15.0); Immature Granulocytes Count 0.050 X10^3/uL (0.0-0.0); Mean Corp Hgb Conc 34.3 g/dL (32-36); Mean Corpuscular Volume 92.4 fL (81-99); Mean Platelet Vol. 8.8 fl (6.2-12.0); NRBC Flagged by Analyzer 0 % (0-5); Platelet Count 268 K/mm3 (150-450); RBC Distribution Width CV 12.2 % (11.6-14.6); RBC Distribution Width SD 41.5 fl (35.1-43.9); Red Blood Count 4.35 M/mm3 (4.2-5.4); White Blood Count 10.7 K/mm3 (4.4-11.0)
--- NOTE | 2025-07-22 20:45 | CT_ITS ---
EXAM: CT Head Without Intravenous Contrast CLINICAL INDICATION: FALL, HEAD INJURY TECHNIQUE: Axial computed tomography images of the head/brain without intravenous contrast. This CT exam was performed using one or more of the following dose reduction techniques: automated exposure control, adjustment of the mA and/or kV according to patient size, and/or use of iterative reconstruction technique. RADIATION DOSE: CTDIvol = 45 mGy, DLP = 379 mGy-cm COMPARISON: CT Head dated 03/25/2023 FINDINGS: BRAIN AND EXTRA-AXIAL SPACES: No acute intracranial hemorrhage, midline shift or mass effect. If symptoms persist, further evaluation with MRI is recommended. No significant white matter disease. BONES/JOINTS: Unremarkable. No acute fracture. SOFT TISSUES: Unremarkable. SINUSES: Unremarkable as visualized. No acute sinusitis. MASTOID AIR CELLS: Unremarkable as visualized. No mastoid effusion. CT/Brain/Head without Contrast IMPRESSION: 1. No acute intracranial hemorrhage, midline shift or mass effect. If symptoms persist, further evaluation with MRI is recommended. 2. No significant change from the prior exam. Reading Location: [id number]
[2025-07-22 20:54] LABS: Internal QC Validated? YES +Cl - CLEAR BKGD; Pregnancy, Serum, hCG Quali. NEGATIVE Negative
[2025-07-22 21:04] LABS: Anion Gap 10 (7-18); BUN 6 mg/dL (4-19); BUN/Creat Ratio 8.6 RATIO (10-20); Calcium,Total 9.0 mg/dL (7.6-11.0); Carbon Dioxide 22.3 mmol/L (20.0-29.0); Chloride 105 mmol/L (96-106); Estimated Creatinine Clearance 140.22 ml/min (50-250); Glucose 129 mg/dL (70-99); Potassium 3.8 mmol/L (3.5-5.1)
--- OUTSIDE RECORDS SUMMARY | 2025-07-22 21:13 | XMS RPT_ITS | CCD ---
Author Organization [facility] STORAGE AND BACKUP ADMINISTRATOR [facility] Care Team Providers Care Transportation Engineer Name Role Phone PHYSICIAN, NOT RECORDED Primary Care Physician U nicole SALCEDO, Nery Morgan Primary Care Provider [phone] Rojas SUPERVISOR [employer]ETING EXECUTIVE, Crystal G [employer]available Inc, [place] [facility] Unavailable Unavailable Primary Care Provider Unavailabl e Rojas SUPERVISOR [employer] MARKETING EXECUTIVE, Crystal G [employer], [place] [facility] Unavailable [phone] PHYSICIAN, NONE Primary Care Physician Unavailab le Unavailable Primary Care Provider Unavailestevan e GINETTE WASSERMAN Attending Unavailable MEG ORTEZ Referring Unavailable BECKY FLOR Attending Unavailable VIET ESPARZA Attending Unavailable MEG ORTEZ Referring Unavailable MEG ORTEZ Referring Unavailable DYLON MCKENNA DO Attending Unavailable DYLON MCKENNA DO Primary Care Unavailable DYLON MCKENNA DO Admitting Unavailable SKY MUELLER, DR BELAL Attending Unavailabl e PHYSICIAN, NONE Primary Care Unavailable PHYSICIAN, NOT RECORDED Primary Care Unavaila JACOB Livingston DO Attending Unavailable NORMA ECKERT DO Attending Unavailable PHYSICIAN, NONE Primary Care Unavailable ROQUE MEJÍA DO Attending Unavailable PHYSICIAN, NONE Primary Care Unavailable SELF, SELF Referring Unavailable ALISON THAKKAR Attending Unavailable Edvin Barrett Attending Unavailabl e Care Physician, No Primary Primary Care Unava ilable Astudillo, Olaf Attending Unavailable Care Physician, No Primary Primary Care Unava ilable Astudillo, Olaf Attending Unavailable Care Physician, No Primary Primary Care Unava ilable Astudillo, Olaf Attending Unavailable Care Physician, No Primary Primary Care Unava ilable Care Physician, No Primary Primary Care Unava ilable Edwin Dumont Attending Unavailable White, Caro L Admitting Unavailable White, Caro L Consulting Unavailable Care Physician, No Primary Primary Care Unava ilable Jack Sandoval Attending Unavailable Care Physician, No Primary Primary Care Unava ilable Maurisio Richards Attending Unavailable Care Physician, No Primary Primary Care Unava ilable White, Caro L Attending Unavailable Edwin Dumont Attending Unavailable White, Caro L Admitting Unavailable White, Caro L Consulting Unavailable Edwin Dumont Consulting Unavailable Alison Givens Attending Unavailable Alison Givens Referring Unavailable Care Physician, No Primary Primary Care Unava ilable Allergies Allergy Classification Reported Allergen(s) Allergy Type Date of Onset Reaction(s) Facility (11 sources) tomato allergenic extract; Translations: [TOMATO] Drug Allergy [address] [facility] (4 sources) Cephalexin; Translations: [CEPHALEXIN] Drug Allergy 4 [facility] Work Phone: (1 source) + MRSA Wound; Translations: [+ MRSA Wound] Propensity to adverse reactions (disorder) [facility] Repository Medications Current Medications Medication Drug Class(es) Dates Sig (Normalized) Sig (Original) acetaminophen 325 mg / HYDROcodone bitartrate 5 mg oral tablet (1 source) Opioid Agonist Start: 11-14-2023 End: 11-17-2023 take 1 tablet by mouth every six hours as needed for pain [place] 325- 5 mg oral tablet Dose = [...] Comment on above: Take 1 capsule by [facility] four times daily for 5 days. cloBAZam [...] Take 1 tablet by ramos once daily. folic acid 1 mg oral [...] Start: 08-24-2023 take 4 tablets by mo [facility] every twenty-four hours at bedtime LamoTRIgine 200 [...] tablet by ramos th four times daily. Ufazoivs-Qk-Tyg-Fe-FA tab (8 sources) Start: 10-04-19 19 take 1 tablet by mouth once daily Xqbpadwf-Wm-Qvj-F e-FA tab Indications: 31 weeks gestation of Take 1 tablet by mouth once daily. 60 tablet 3 10/03/2018 Active Comment on above: Take 1 tablet by ramos th once daily. 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, [address] Calcium [Mass/Vol] 8.0 mg/dL Normal 7.6-11.0 [facility] Comment on above: Performed By: #### L 500.2500, L500.3400, L100.0100, L503.6005 #### [facility] [address] [place], [address] Chloride [Moles/Vol] 105 mmol/L Normal 98-108 [facility] Comment on above: Performed By: #### L 500.2500, L500.3400, L100.0100, L503.6005 #### [facility] [address] [place], [address] CO2 [Moles/Vol] 30.0 mmol/L Normal 21.0-32.0 [facility] Comment on above: Performed By: #### L 500.2500, L500.3400, L100.0100, L503.6005 #### [facility] [address] [place], [address] Creatinine [Mass/Vol] 0.62 mg/dL Low 0.70-1.20 [facility] Comment on above: Performed By: #### L 500.2500, L500.3400, L100.0100, L503.6005 #### [facility] [address] [place], [address] ECRCL 162.60 ml/min Normal 50-250 [facility] Comment on above: Performed By: #### L 500.2500, L500.3400, L100.0100, L503.6005 #### [facility] [address] [place], [address] GAP 4 Low 5-15 [facility] Comment on above: Performed By: #### L 500.2500, L500.3400, L100.0100, L503.6005 #### [facility] [address] [place], [address] GFR/1.73 sq M.predicted among non-blacks MDRD (S/P/Bld) [Vol rate/Area] 120 mL/min/{1.73_m2} Normal >60 [facility] Comment on above: Result Comment: mL/m in/1.73m2 CKD-EPI Creatinine Equation (2020) Performed By: #### L 500.2500, L500.3400, L100.0100, L503.6005 #### [facility] [address] [place], [address] Glucose [Mass/Vol] 101 mg/dL High 70-99 [facility] Comment on above: Performed By: #### L 500.2500, L500.3400, L100.0100, L503.6005 #### [facility] [address] [place], [address] Potassium [Moles/Vol] 4.3 mmol/L Normal 3.3-5.1 [facility] Comment on above: Performed By: #### L 500.2500, L500.3400, L100.0100, L503.6005 #### [facility] [address] [place], [address] Sodium [Moles/Vol] 138 mmol/L Normal 133-145 [facility] Comment on above: Performed By: #### L 500.2500, L500.3400, L100.0100, L503.6005 #### [facility] [address] [place], [address] Urea nitrogen [Mass/Vol] 7 mg/dL Normal 4-19 [facility] Comment on above: Performed By: #### L 500.2500, L500.3400, L100.0100, L503.6005 #### [facility] [address] [place], [address] CBC W/Diff, Automatedon 10-0 Absolute Lymph 2.82 X10 3/uL Normal 0.83-4.51 [facility] Comment on above: Performed By: #### L 500.2500, L500.3400, L100.0100, L503.6005 #### [facility] [address] [place], [address] Absolute Neut 6.7 X10 3/uL Normal 2.0-7.7 [facility] Comment on above: Performed By: #### L 500.2500, L500.3400, L100.0100, L503.6005 #### [facility] [address] [place], [address] Basophils/100 WBC (Bld) 0.7 % Normal 0-1 [facility] Comment on above: Performed By: #### L 500.2500, L500.3400, L100.0100, L503.6005 #### [facility] [address] [place], [address] Eosinophils/100 WBC (Bld) 2.2 % Normal 0-5 [facility] Comment on above: Performed By: #### L 500.2500, L500.3400, L100.0100, L503.6005 #### [facility] [address] [place], [address] Erythrocyte distribution width (RBC) [Ratio] 12.9 % Normal 11.6-14.6 [facility] Comment on above: Performed By: #### L 500.2500, L500.3400, L100.0100, L503.6005 #### [facility] [address] [place], [address] Hematocrit (Bld) [Volume fraction] 39.2 % Normal 37-47 [facility] Comment on above: Performed By: #### L 500.2500, L500.3400, L100.0100, L503.6005 #### [facility] [address] [place], [address] Hemoglobin (Bld) [Mass/Vol] 13.5 g/dL Normal 12.0-15.0 [facility] Comment on above: Performed By: #### L 500.2500, L500.3400, L100.0100, L503.6005 #### [facility] [address] [place], [address] IG% 0.300 Normal 0.0-0.9 [facility] Comment on above: Result Comment: IG% - Immature Granulocytes (promyelocytes, myelocytes and metamyelocytes) > 1% indicates that a LEFT SHIFT is Present. Performed By: #### L 500.2500, L500.3400, L100.0100, L503.6005 #### [facility] [address] [place], [address] Lymphocytes/100 WBC (Bld) 26.3 % Normal 19-41 [facility] Comment on above: Performed By: #### L 500.2500, L500.3400, L100.0100, L503.6005 #### [facility] [address] [place], [address] MCH (RBC) [Entitic mass] 32.5 pg High 27.0-32.0 [facility] Comment on above: Performed By: #### L 500.2500, L500.3400, L100.0100, L503.6005 #### [facility] [address] [place], [address] MCHC (RBC) [Mass/Vol] 34.4 g/dL Normal 32-36 [facility] Comment on above: Performed By: #### L 500.2500, L500.3400, L100.0100, L503.6005 #### [facility] [address] [place], [address] MCV (RBC) [Entitic vol] 94.5 fL Normal 81-99 [facility] Comment on above: Performed By: #### L 500.2500, L500.3400, L100.0100, L503.6005 #### [facility] [address] [place], [address] Monocytes/100 WBC (Bld) 7.8 % Normal 0-10 [facility] Comment on above: Performed By: #### L 500.2500, L500.3400, L100.0100, L503.6005 #### [facility] [address] [place], [address] Neutrophils/100 WBC (Bld) 62.7 % Normal 47-70 [facility] Comment on above: Performed By: #### L 500.2500, L500.3400, L100.0100, L503.6005 #### [facility] [address] [place], [address] Nucleated RBC (Bld) [#/Vol] 0 10*3/uL Normal 0-5 [facility] Comment on above: Performed By: #### L 500.2500, L500.3400, L100.0100, L503.6005 #### [facility] [address] [place], [address] Platelet mean volume (Bld) [Entitic vol] 8.8 fL Normal 6.2-12.0 [facility] Comment on above: Performed By: #### L 500.2500, L500.3400, L100.0100, L503.6005 #### [facility] [address] [place], [address] Platelets (Bld) [#/Vol] 296 10*3/uL Normal 150-450 [facility] Comment on above: Performed By: #### L 500.2500, L500.3400, L100.0100, L503.6005 #### [facility] [address] [place], [address] RBC (Bld) [#/Vol] 4.15 10*6/uL Low 4.2-5.4 [facility] Comment on above: Performed By: #### L 500.2500, L500.3400, L100.0100, L503.6005 #### [facility] [address] [place], [address] RDW SD 44.9 fl High 35.1-43.9 [facility] Comment on above: Performed By: #### L 500.2500, L500.3400, L100.0100, L503.6005 #### [facility] [address] [place], [address] WBC (Bld) [#/Vol] 10.7 10*3/uL Normal 4.4-11.0 [facility] Comment on above: Performed By: #### L 500.2500, L500.3400, L100.0100, L503.6005 #### [facility] [address] [place], [address] Chest PA and Lateralon 05-02 Chest PA and Lateral [facility] Imaging Services [address] [place] [address] Chest PA and Lateral MR#: [id number] Acct: [id number] Name: DELON HAJI Rep #: [id number] : 1990 F 34 From: Jaime owen MD PCP: Care Physician,No Primary Status: [facility] ER Study: Chest PA and Lateral Date of Exam: 05/02/25 Exam# [id number] Ordering Dr: Olaf Astudillo MD PROCEDURE: CHEST PA AND LATERAL 05/02/2025 REASON FOR EXAM: RIGHT SIDED CHEST PAIN WITH PLEURITIC COMPONENT TECHNIQUE: Procedure Code: RADCXR Modality: DX Procedure: CHEST PA AND LATERAL COMPARISON: Prior study dated March 25, 2023. FINDINGS: Hardware: EKG electrodes are seen. Heart: The heart size is normal. Mediastinum: The mediastinal contour is unremarkable. Lungs: The lungs are clear. Bones: The bones are unremarkable. RAD/Chest PA and Lateral IMPRESSION: NO ACUTE FINDINGS. Reading Location: [id number] CC: Dr. Olaf Astudillo MD; No Primary Care Physician Retail Shift Manager: Signed Normal [facility] Emergency Department Summary on 05-02-2025 Emergency Department Summary [facility] Medical Records Department [address] [place] [address] Emergency Department Summary 05/02/25 MR#: [id number] Acct: [id number] Name: DELON HAJI Rep #: [id number] : 1990 34 From: Olaf Astudillo MD PCP: Care Physician,No Primary Status:REG ER Location: ED HPI History of Present Illness Chief Complaint: Shortness of Breath Detail of Chief Complaint: Shortness of breath and right-sided chest pain that radiates through to her Informant: patient Onset/Context/Timing Onset: Today Context: Sudden Onset Timing: Continuous Quality: Shortness of breath, right-sided chest pain rating to her back Location: Right side of her torso anterior and posterior Current Severity: Mild Maximum Severity: Moderate Worsened by: Breathing Relieved by: Nothing Associated Symptoms Associated Symptoms: No upper respiratory tract infectious system. No leg pain, swelling discol Narrative Narrative: Patient is a 34-year-old woman. She presents because of right sided chest pain that radiates to her back. She does report a pleuritic component. She denies rhinorrhea, congestion, postnasal drainage sore throat the past month. She has a cough in the morning which she attributes to smoking. She smokes 1/3 pack/day. She has no history of VTE. She has no risk factors for VTE. She does have a history of seizures. She denies food intolerance. There is no family history of cholelithiasis. She has no known history of liver disease. She denies alcohol use or drug use. She denies nausea, vomiting or diarrhea. She denies black or maroon-colored stool. She has no history of GERD. There is no history of direct or indirect trauma. Prior similar symptoms: No Recent Illness/Hospitalizati on: No PFSH PFSH Medical History Smoker IUD (intrauterine device) in place Alcohol abuse Obesity History of chlamydia infection Tobacco use History of pre-term labor Anxiety and depression History of substance abuse Seizure disorder Home [...] days #5 tabs 12/25 09/19 Unknown Rx hydrocodone-acetamino phen 5-325mg 1 tab PO Q6H PRN PRN Pain 3 days 02/18/25 Unknown Rx 5mg-325mg #10 TABLETS naproxen 500 mg tablet 500 mg PO BID #14 tabs 02/18/25 Un known Rx naproxen 500 mg tablet 500 mg PO BID #14 tabs 05/02/25 Un known Rx Allergy/AdvReac Type Severity Reaction Status Date / Time tomato AdvReac Vomiting Verified 05/02/25 12:53 Family History Father Alcohol abuse Cataract Mother [...] change in vision ENT ENT ED: Denies ear pain, rhinorrhea or sore throat Cardiovascular Cardiovascular: Reports chest pain; Denies orthopnea, palpitations, paroxysmal nocturnal dyspnea or racing heartbeat Respiratory/Chest Respiratory/Chest: Reports cough and dyspnea; Denies dyspnea on exertion, orthopnea, paroxysmal nocturnal dyspnea or sputum Gastrointestinal Gastrointestinal: Denies abdominal pain, diarrhea, melena, nausea or vomiting Genitourinary Genitourinary ED: Denies dysuria, hematuria or urinary frequency Musculoskeletal Musculoskeletal: Reports back pain; Denies arthralgias or myalgias Integumentary Denies rash Neurologic Neurologic: Denies paresthesias or weakness Hematologic/Lymphatic Hematologic/Lymphatic : Reports systems reviewed and no addt'l complaints, except as documented EXAM Physical Exam Const Vital Signs: 05/02/25 12:51 05/02/25 14:24 05/02/25 14:51 Temperature 98.3 F Temperature Source Oral Pulse Rate 89 72 Respiratory Rate 18 17 Respiratory Effort Normal Non-Labored Respiratory Depth (more content not included)... Normal [facility] Lactic Acidon 05-02-2025 Lactate [Moles/Vol] mmol/L Normal 0.0-2.0 [facility] Comment on above: Order Comment: Y Performed By: #### L 500.2500, L500.3400, L100.0100, L503.6005 #### [facility] [address] [place], [address] Liver Profileon 05-02-2025 Albumin [Mass/Vol] 4.4 g/dL Normal 3.5-5.0 [facility] Comment on above: Performed By: #### L 500.2500, L500.3400, L100.0100, L503.6005 #### [facility] [address] [place], [address] ALK PHOS 78 U/L Normal 35-104 [facility] Comment on above: Performed By: #### L 500.2500, L500.3400, L100.0100, L503.6005 #### [facility] [address] [place], [address] ALT [Catalytic activity/Vol] 11 U/L Normal <=34 [facility] Comment on above: Performed By: #### L 500.2500, L500.3400, L100.0100, L503.6005 #### [facility] [address] [place], [address] AST [Catalytic activity/Vol] 14 U/L Normal <=31 [facility] Comment on above: Performed By: #### L 500.2500, L500.3400, L100.0100, L503.6005 #### [facility] [address] [place], [address] Bilirubin [Mass/Vol] 0.57 mg/dL Normal 0.00-1.30 [facility] Comment on above: Performed By: #### L 500.2500, L500.3400, L100.0100, L503.6005 #### [facility] [address] [place], [address] Bilirubin.direct [Mass/Vol] 0.21 mg/dL Normal 0.00-0.30 [facility] Comment on above: Performed By: #### L 500.2500, L500.3400, L100.0100, L503.6005 #### [facility] [address] [place], [address] Globulin (S) [Mass/Vol] 2.6 g/dL Normal 2.2-4.2 [facility] Comment on above: Performed By: #### L 500.2500, L500.3400, L100.0100, L503.6005 #### [facility] [address] [place], [address] T PROT 7.0 g/dL Normal 5.9-8.4 [facility] Comment on above: Performed By: #### L 500.2500, L500.3400, L100.0100, L503.6005 #### [facility] [address] [place], [address] Emergency Department Summary on 02-18-2025 Emergency Department Summary [facility] Medical Records Department [address] [place] [address] Emergency Department Summary 02/18/25 MR#: [id number] Acct: [id number] Name: DELON HAJI MIL[place] Rep #: [id number] : 1990 34 From: Olaf Astudillo MD PCP: Care Physician,No Primary Status:REG ER Location: ED HPI History of Present Illness Chief Complaint: Back Detail of Chief Complaint: Low back pain that started several days ago. Informant: patient Onset/Context/Timing Onset: Days Context: Sudden Onset Chronic pain exacerbated by: Not applicable Injury: - (No history of trauma indirect or direct) Timing: Continuous Quality: Aching Location: Lumbar Current Severity: Severe Maximum Severity: Severe Worsened by: improves with Movement, Ambulation, Bending and Lifting Relieved by: Nothing Associated Symptoms Associated Symptoms: - (No saddle paresthesia or anesthesia. No recent dental procedure.); Negative for Numbness, Tingling, Radiation to Right Leg, Radiation to Left Leg, Fever, Abdominal Pain, Dysuria, Unable to Ambulate, Unable to Transfer, Urinary Retention, Urinary Incontinence, Constipation or Fecal Incontinence Narrative Narrative: Patient is a 34-year-old woman. She presents with atraumatic low back pain. She denies fever, chills night sweats. She denies bowel bladder dysfunction. No saddle paresthesia or anesthesia. Denies foot drop. Denies buckling of her knees going up or down steps. She denies any type of recent procedure dental or otherwise. She denies dysuria, frequency, urgency or hematuria. Her pain is worse with movement. She has no history of back problems. There is a history of muscle skeletal pain, however. She denies symptoms of claudication. Prior similar symptoms: No Recent Illness/Hospitalizati on: No PFSH [facility] Medical History IUD (intrauterine device) in [...] days #5 tabs 12/25 09/19 Unknown Rx hydrocodone-acetamino phen 5-325mg 1 tab PO Q6H PRN PRN Pain 3 days 02/18/25 Unknown Rx 5mg-325mg #10 TABLETS naproxen 500 mg tablet 500 mg PO BID #14 tabs 02/18/25 Un known Rx Allergy/AdvReac Type Severity Reaction Status Date / Time tomato AdvReac Vomiting Verified 02/18/25 17:34 Family History Father Alcohol abuse Cataract Mother [...] ED Constitutional Constitutional ED: Denies chills, fever(s), subjective, sweats or weight loss Eyes Eyes: Denies blurry vision, change in vision or diplopia ENT ENT ED: Denies ear pain, rhinorrhea or sore throat Cardiovascular Cardiovascular: Denies chest pain or palpitations Respiratory/Chest Respiratory/Chest: Denies dyspnea or dyspnea on exertion Gastrointestinal Gastrointestinal: Denies abdominal pain, diarrhea, nausea or vomiting Genitourinary Genitourinary ED: Reports other Details: There is no history of renal or ureterolithiasis. ; Denies dysuria, hematuria or urinary frequency Musculoskeletal Musculoskeletal: Reports back pain and neck pain; Denies arthralgias or myalgias Integumentary Denies rash Neurologic Neurologic: Denies paresthesias or weakness Hematologic/Lymphatic Hematologic/Lymphatic : Denies easy bleeding or easy bruising EXAM Physical Exam Const Vital Signs: 02/18/25 17:33 Temperature 97.8 F Temperature Source Oral Pulse Rate 107 H Respiratory Rate 16 Blood Pressure 142/83 H Blood Pressure Mean 102 Pulse Ox 100 Positive well nourished and well developed Constitutional Narrative: Patient appears in obvious discomfort. She grimaces with minim (more content not included)... [facility] Lamotrigine (Lamictal) Level on 01-15-2025 LAMOTRIGINE 7.6 ug/mL Normal 2.0-20.0 [facility] Comment on above: Result Comment: Dete ction Limit = 1.0 Performed at: [address] [id number] Assignment Desk Editor: Jyoti Dailey MD, Phone: [phone] Performed By: #### L 172.7994, F3054.0292 ####[facility] [id number] [place], [address] Emergency Department Summary on 01-14-2025 Emergency Department Summary [facility] Medical Records Department [address] [place] [address] Emergency Department Summary 01/14/25 MR#: [id number] Acct: [id number] Name: DELON HAJI [place] Rep #: [id number] : 1990 34 From: Jack Sandoval DO PCP: Care Physician,No Primary Status:DEP ER Location: ED HPI History of Present Illness Chief Complaint: Back PFSH PFS Medical History IUD (intrauterine device) [...] BEEN PERSONALLY REVIEWED AND INTERPRETED BY MYSELF. MDM Narrative: Patient was initially hemodynamically stable, afebrile and nontoxic appearing. Exam without focal neurologic deficits in the lower extremities. No urinary complaints. I considered the following differential diagnosis: Musculoskeletal back pain, space-occupying lesion of the spinal (epidural abscess, epidural hematoma), cauda equina, c (more content not included)... [facility] Basic Metabolic Profile (BMP )on 01-10-2025 BUN/CRE 8.4 RATIO Low 10-20 [facility] Comment on above: Performed By: #### L 500.2500, L3300.4400 ####[facility] [address] [place], [address] Calcium [Mass/Vol] 9.7 mg/dL Normal 7.6-11.0 [facility] Comment on above: Performed By: #### L 500.2500, L3300.4400 ####[facility] [address] [place], [address] Chloride [Moles/Vol] 103 mmol/L Normal 98-108 [facility] Comment on above: Performed By: #### L 500.2500, L3300.4400 ####[facility] [address] [place], [address] CO2 [Moles/Vol] 20.5 mmol/L Low 21.0-32.0 [facility] Comment on above: Performed By: #### L 500.2500, L3300.4400 ####[facility] [address] [place], [address] Creatinine [Mass/Vol] 0.87 mg/dL Normal 0.70-1.20 [facility] Comment on above: Performed By: #### L 500.2500, L3300.4400 ####[facility] [address] [place], [address] ECRCL 114.91 ml/min Normal 50-250 [facility] Comment on above: Performed By: #### L 500.2500, L3300.4400 ####[facility] [address] [place], [address] GAP 14 Normal 5-15 [facility] Comment on above: Performed By: #### L 500.2500, L3300.4400 ####[facility] [address] [place], [address] GFR/1.73 sq M.predicted among non-blacks MDRD (S/P/Bld) [Vol rate/Area] 90 mL/min/{1.73_m2} Normal >60 [facility] Comment on above: Result Comment: mL/m in/1.73m2 CKD-EPI Creatinine Equation (2020) Performed By: #### L 500.2500, L3300.4400 ####[facility] [address] [place], [address] Glucose [Mass/Vol] 88 mg/dL Normal 70-99 [facility] Comment on above: Performed By: #### L 500.2500, L3300.4400 ####[facility] [address] [place], [address] Potassium [Moles/Vol] 4.4 mmol/L Normal 3.3-5.1 [facility] Comment on above: Result Comment: Hemo lysis present, Results??could be affected. ?? Performed By: #### L 500.2500, L3300.4400 ####[facility] [address] [place], [address] Sodium [Moles/Vol] 137 mmol/L Normal 133-145 [facility] Comment on above: Performed By: #### L 500.2500, L3300.4400 ####[facility] [address] [place], [address] Urea nitrogen [Mass/Vol] 7 mg/dL Normal 4-19 [facility] Comment on above: Performed By: #### L 500.2500, L3300.4400 ####[facility] [address] [place], [address] Emergency Department Summary on 01-10-2025 Emergency Department Summary [facility] Medical Records Department [address] [place] [address] Emergency Department Summary 01/10/25 MR#: [id number] Acct: [id number] Name: DELON HAJI MILTON Rep #: [id number] : 1990 34 From: Olaf Astudillo MD [...] is seen by a neurologist through the [facility]. She is present on Lamictal. Her [...] lower extremity. Prior similar symptoms: Yes Recent Illness/Hospitalizati on: No PFSH PFSH Medical History IUD (intrauterine [...] Denies cold intolerance or heat intolerance Hematologic/Lymphatic Hematologic/Lymphatic : Reports systems reviewed and no addt'l complaints, [...] icterus Neck (more content not included)... Normal [facility] 12 Lead EKGon 01-01-2025 12 Lead EKG [facility] Cardiovascular Services [address] [place] [address] 12 Lead EKG 01/01/25 0903 MR#: [id number] Acct: [id number] Name: DELON HJAI MILTON Rep #: [id number] : 1990 34 From: Alberto Hummel MD [...] Normal ECG Confirmed by Alberto Hummel ([id number]), city editor FILIPPO GUEVARA ([id number]) on 01/02/2025 6:14:23 AM Referred By: YARY Confirmed By: Alberto Hummel 01/02/25 0614 Date Alberto Hummel MD CC: Dr. Edvin Barrett, DO; No Primary Care Physician Signed Normal [facility] Bedside Glucoseon 01-01-2024 FINGERSTICK GLU 99 mg/dL Normal 74-106 [facility] Comment on above: Result Comment: ROBBI ARIAS OF PATIENT CARE PER NURSING PROTOCOL Performed By: #### L 501.080 ####[facility] [address] [place], [address] CBC W/Diff, Automatedon Absolute Neut Normal 2.0-7.7 [facility] Comment on above: Result Comment: ZACH ENT DISCHARGED-NO SPECIMEN REC'D Performed By: #### L 500.4050, L505.5000, L100.0100 ####[facility] [address] [place], [address] HCT Normal 37-47 [facility] Comment on above: Result Comment: ZACH ENT DISCHARGED-NO SPECIMEN REC'D Performed By: #### L 500.4050, L505.5000, L100.0100 ####[facility] [address] [place], [address] HGB Normal 12.0-15.0 [facility] Comment on above: Result Comment: ZACH ENT DISCHARGED-NO SPECIMEN REC'D Performed By: #### L 500.4050, L505.5000, L100.0100 ####[facility] [address] [place], [address] MCH Normal 27.0-32.0 [facility] Comment on above: Result Comment: ZACH ENT DISCHARGED-NO SPECIMEN REC'D Performed By: #### L 500.4050, L505.5000, L100.0100 ####[facility] [address] [place], [address] MCHC Normal 32-36 [facility] Comment on above: Result Comment: ZACH ENT DISCHARGED-NO SPECIMEN REC'D Performed By: #### L 500.4050, L505.5000, L100.0100 ####[facility] [address] [place], [address] MCV Normal 81-99 [facility] Comment on above: Result Comment: ZACH ENT DISCHARGED-NO SPECIMEN REC'D Performed By: #### L 500.4050, L505.5000, L100.0100 ####[facility] [address] [place], [address] NEUT% Normal 47-70 [facility] Comment on above: Result Comment: ZACH ENT DISCHARGED-NO SPECIMEN REC'D Performed By: #### L 500.4050, L505.5000, L100.0100 ####[facility] [address] [place], [address] PLT Normal 150-450 [facility] Comment on above: Result Comment: ZACH ENT DISCHARGED-NO SPECIMEN REC'D Performed By: #### L 500.4050, L505.5000, L100.0100 ####[facility] [address] [place], [address] RBC Normal 4.2-5.4 [facility] Comment on above: Result Comment: ZACH ENT DISCHARGED-NO SPECIMEN REC'D Performed By: #### L 500.4050, L505.5000, L100.0100 ####[facility] [address] [place], [address] RDW CV Normal 11.6-14.6 [facility] Comment on above: Result Comment: ZACH ENT DISCHARGED-NO SPECIMEN REC'D Performed By: #### L 500.4050, L505.5000, L100.0100 ####[facility] [address] [place], [address] RDW SD Normal 35.1-43.9 [facility] Comment on above: Result Comment: ZACH ENT DISCHARGED-NO SPECIMEN REC'D Performed By: #### L 500.4050, L505.5000, L100.0100 ####[facility] [address] [place], [address] WBC Normal 4.4-11.0 [facility] Comment on above: Result Comment: ZACH ENT DISCHARGED-NO SPECIMEN REC'D Performed By: #### L 500.4050, L505.5000, L100.0100 ####[facility] [address] [place], [address] Comprehensive Metabolic Prof ilon 01-01-2025 ALB Normal 3.5-5.0 [facility] Comment on above: Result Comment: ZACH ENT DISCHARGED-NO SPECIMEN REC'D Performed By: #### L 500.4050, L505.5000, L100.0100 ####[facility] [address] [place], [address] ALK PHOS Normal 35-104 [facility] Comment on above: Result Comment: ZACH ENT DISCHARGED-NO SPECIMEN REC'D Performed By: #### L 500.4050, L505.5000, L100.0100 ####[facility] [address] [place], [address] ALT Normal <=34 [facility] Comment on above: Result Comment: ZACH ENT DISCHARGED-NO SPECIMEN REC'D Performed By: #### L 500.4050, L505.5000, L100.0100 ####[facility] [address] [place], [address] AST Normal <=31 [facility] Comment on above: Result Comment: ZACH ENT DISCHARGED-NO SPECIMEN REC'D Performed By: #### L 500.4050, L505.5000, L100.0100 ####[facility] [address] [place], [address] BUN Normal 4-19 [facility] Comment on above: Result Comment: ZACH ENT DISCHARGED-NO SPECIMEN REC'D Performed By: #### L 500.4050, L505.5000, L100.0100 ####[facility] [address] [place], [address] BUN/CRE Normal 10-20 [facility] Comment on above: Result Comment: ZACH ENT DISCHARGED-NO SPECIMEN REC'D Performed By: #### L 500.4050, L505.5000, L100.0100 ####[facility] [address] [place], [address] Calcium Normal 7.6-11.0 [facility] Comment on above: Result Comment: ZACH ENT DISCHARGED-NO SPECIMEN REC'D Performed By: #### L 500.4050, L505.5000, L100.0100 ####[facility] [address] [place], [address] CL Normal 98-108 [facility] Comment on above: Result Comment: ZACH ENT DISCHARGED-NO SPECIMEN REC'D Performed By: #### L 500.4050, L505.5000, L100.0100 ####[facility] [address] [place], [address] CO2 Normal 21.0-32.0 [facility] Comment on above: Result Comment: ZACH ENT DISCHARGED-NO SPECIMEN REC'D Performed By: #### L 500.4050, L505.5000, L100.0100 ####[facility] [address] [place], [address] CREAT,SERUM Normal 0.70-1.20 [facility] Comment on above: Result Comment: ZACH ENT DISCHARGED-NO SPECIMEN REC'D Performed By: #### L 500.4050, L505.5000, L100.0100 ####[facility] [address] [place], [address] eGFR Normal >60 [facility] Comment on above: Result Comment: ZACH ENT DISCHARGED-NO SPECIMEN REC'D Performed By: #### L 500.4050, L505.5000, L100.0100 ####[facility] [address] [place], [address] GAP Normal 5-15 [facility] Comment on above: Result Comment: ZACH ENT DISCHARGED-NO SPECIMEN REC'D Performed By: #### L 500.4050, L505.5000, L100.0100 ####[facility] [address] [place], [address] GLU Normal 70-99 [facility] Comment on above: Result Comment: ZACH ENT DISCHARGED-NO SPECIMEN REC'D Performed By: #### L 500.4050, L505.5000, L100.0100 ####[facility] [address] [place], [address] Potassium Normal 3.3-5.1 [facility] Comment on above: Result Comment: ZACH ENT DISCHARGED-NO SPECIMEN REC'D Performed By: #### L 500.4050, L505.5000, L100.0100 ####[facility] [address] [place], [address] T BILI Normal 0.00-1.30 [facility] Comment on above: Result Comment: ZACH ENT DISCHARGED-NO SPECIMEN REC'D Performed By: #### L 500.4050, L505.5000, L100.0100 ####[facility] [address] [place], [address] T PROT Normal 5.9-8.4 [facility] Comment on above: Result Comment: ZACH ENT DISCHARGED-NO SPECIMEN REC'D Performed By: #### L 500.4050, L505.5000, L100.0100 ####[facility] [address] [place], [address] Comprehensive Metabolic Profil Normal 133-145 [facility] Comment on above: Result Comment: ZACH ENT DISCHARGED-NO SPECIMEN REC'D Performed By: #### L 500.4050, L505.5000, L100.0100 ####[facility] [address] [place], [address] Emergency Department Summary on 01-01-2025 Emergency Department Summary [facility] Medical Records Department [address] [place] [address] Emergency Department Summary 01/01/25 MR#: [id number] Acct: [id number] Name: DELON HAJI Rep #: [id number] : 1990 34 From: Edvin Barrett DO [...] put on Clobazam by her neurologist in [place] however they are currently weaning this off [...] intact, sensation intact Psych: Cooperative, flat affect PFSH [facility] Medical History IUD (intrauterine device) in [...] level a (more content not included)... Normal [facility] Urine Drug Screen (VISTA)on 01-01-2025 AMPHETAMINES Normal <1000 ng/mL [facility] Comment on above: Result Comment: ZACH ENT DISCHARGED-NO SPECIMEN REC'D Performed By: #### L 500.4050, L505.5000, L100.0100 ####[facility] [address] [place], [address] BARBITIURATES Normal < 200 ng/mL [facility] Comment on above: Result Comment: [facility] ENT DISCHARGED-NO SPECIMEN REC'D Performed By: #### L 500.4050, L505.5000, L100.0100 ####[facility] [address] [place], [address] BENZODIAZIPINE Normal < 200 ng/mL [facility] Comment on above: Result Comment: ZACH ENT DISCHARGED-NO SPECIMEN REC'D Performed By: #### L 500.4050, L505.5000, L100.0100 ####[facility] [address] [place], [address] BUP Ur Drug Scr Normal < 200 ng/mL [facility] Comment on above: Result Comment: ZACH ENT DISCHARGED-NO SPECIMEN REC'D Performed By: #### L 500.4050, L505.5000, L100.0100 ####[facility] [address] [place], [address] COCAINE Normal < 300 ng/mL [facility] Comment on above: Result Comment: ZACH ENT DISCHARGED-NO SPECIMEN REC'D Performed By: #### L 500.4050, L505.5000, L100.0100 ####[facility] [address] [place], [address] Fentanyl Normal [facility] Comment on above: Result Comment: ZACH ENT DISCHARGED-NO SPECIMEN REC'D Performed By: #### L 500.4050, L505.5000, L100.0100 ####[facility] [address] [place], [address] METHADONE Normal < 300 ng/mL [facility] Comment on above: Result Comment: ZACH ENT DISCHARGED-NO SPECIMEN REC'D Performed By: #### L 500.4050, L505.5000, L100.0100 ####[facility] [address] [place], [address] OPIATES Normal < 300 ng/mL [facility] Comment on above: Result Comment: ZACH ENT DISCHARGED-NO SPECIMEN REC'D Performed By: #### L 500.4050, L505.5000, L100.0100 ####[facility] [address] [place], [address] OXYCODONE Normal < 100 ng/mL [facility] Comment on above: Result Comment: ZACH ENT DISCHARGED-NO SPECIMEN REC'D Performed By: #### L 500.4050, L505.5000, L100.0100 ####[facility] [address] [place], [address] PCP Normal < 25 ng/mL [facility] Comment on above: Result Comment: ZACH ENT DISCHARGED-NO SPECIMEN REC'D Performed By: #### L 500.4050, L505.5000, L100.0100 ####[facility] [address] [place], [address] THC Normal < 50 ng/mL [facility] Comment on above: Result Comment: ZACH ENT DISCHARGED-NO SPECIMEN REC'D Performed By: #### L 500.4050, L505.5000, L100.0100 ####[facility] [address] [place], [place], [address] Lamotrigine (Lamictal) Level on 12-04-2024 LAMOTRIGINE 9.0 ug/mL Normal 2.0-20.0 [facility] Comment on above: Result Comment: Dete ction Limit = 1.0 Performed at: [facility] [address] [id number] Assignment Desk Editor: Jyoti Dailey MD, Phone: [phone] Performed By: #### L 3300.4400, L700.6800, L100.0100, L500.4050 ####[facility] [address] [place], [place], [address] Alcohol, Blood (Medical)-Ser umon 11-30-2024 SERUM ETOH < 10.1 Normal <=10.0 [facility] Comment on above: Result Comment: This test is for medical purposes only. The legal definition of intoxication varies according to local law. Performed By: #### L 505.5000, L501.9100 ####[facility] [address] [place], [place], [phone] CBC W/Diff, Automatedon Absolute Lymph 2.72 X10 3/uL Normal 0.83-4.51 [facility] Comment on above: Performed By: #### L 3300.4400, L700.6800, L100.0100, L500.4050 ####[facility] [address] [place], [address] Absolute Neut 7.4 X10 3/uL Normal 2.0-7.7 [facility] Comment on above: Performed By: #### L 3300.4400, L700.6800, L100.0100, L500.4050 ####[facility] [address] [place], [address] Basophils/100 WBC (Bld) 0.4 % Normal 0-1 [facility] Comment on above: Performed By: #### L 3300.4400, L700.6800, L100.0100, L500.4050 ####[facility] [address] [place], [address] Eosinophils/100 WBC (Bld) 2.9 % Normal 0-5 [facility] Comment on above: Performed By: #### L 3300.4400, L700.6800, L100.0100, L500.4050 ####[facility] [address] [place], [address] Erythrocyte distribution width (RBC) [Ratio] 12.0 % Normal 11.6-14.6 [facility] Comment on above: Performed By: #### L 3300.4400, L700.6800, L100.0100, L500.4050 ####[facility] [address] [place], [address] Hematocrit (Bld) [Volume fraction] 41.8 % Normal 37-47 [facility] Comment on above: Performed By: #### L 3300.4400, L700.6800, L100.0100, L500.4050 ####[facility] [address] [place], [address] Hemoglobin (Bld) [Mass/Vol] 14.6 g/dL Normal 12.0-15.0 [facility] Comment on above: Performed By: #### L 3300.4400, L700.6800, L100.0100, L500.4050 ####[facility] [address] [place], [address] IG% 0.200 Normal 0.0-0.9 [facility] Comment on above: Result Comment: IG% - Immature Granulocytes (promyelocytes, myelocytes and metamyelocytes) > 1% indicates that a LEFT SHIFT is Present. Performed By: #### L 3300.4400, L700.6800, L100.0100, L500.4050 ####[facility] [address] [place], [address] Lymphocytes/100 WBC (Bld) 24.0 % Normal 19-41 [facility] Comment on above: Performed By: #### L 3300.4400, L700.6800, L100.0100, L500.4050 ####[facility] [address] [place], [address] MCH (RBC) [Entitic mass] 33.5 pg High 27.0-32.0 [facility] Comment on above: Performed By: #### L 3300.4400, L700.6800, L100.0100, L500.4050 ####[facility] [address] [place], [address] MCHC (RBC) [Mass/Vol] 34.9 g/dL Normal 32-36 [facility] Comment on above: Performed By: #### L 3300.4400, L700.6800, L100.0100, L500.4050 ####[facility] [address] [place], [address] MCV (RBC) [Entitic vol] 95.9 fL Normal 81-99 [facility] Comment on above: Performed By: #### L 3300.4400, L700.6800, L100.0100, L500.4050 ####[facility] [address] [place], [address] Monocytes/100 WBC (Bld) 7.3 % Normal 0-10 [facility] Comment on above: Performed By: #### L 3300.4400, L700.6800, L100.0100, L500.4050 ####[facility] [address] [place], [address] Neutrophils/100 WBC (Bld) 65.2 % Normal 47-70 [facility] Comment on above: Performed By: #### L 3300.4400, L700.6800, L100.0100, L500.4050 ####[facility] [address] [place], [address] Nucleated RBC (Bld) [#/Vol] 0 10*3/uL Normal 0-5 [facility] Comment on above: Performed By: #### L 3300.4400, L700.6800, L100.0100, L500.4050 ####[facility] [address] [place], [address] Platelet mean volume (Bld) [Entitic vol] 9.1 fL Normal 6.2-12.0 [facility] Comment on above: Performed By: #### L 3300.4400, L700.6800, L100.0100, L500.4050 ####[facility] [address] [place], [address] Platelets (Bld) [#/Vol] 287 10*3/uL Normal 150-450 [facility] Comment on above: Performed By: #### L 3300.4400, L700.6800, L100.0100, L500.4050 ####[facility] [address] [place], [address] RBC (Bld) [#/Vol] 4.36 10*6/uL Normal 4.2-5.4 [facility] Comment on above: Performed By: #### L 3300.4400, L700.6800, L100.0100, L500.4050 ####[facility] [address] [place], [address] RDW SD 42.5 fl Normal 35.1-43.9 [facility] Comment on above: Performed By: #### L 3300.4400, L700.6800, L100.0100, L500.4050 ####[facility] [address] [place], [address] WBC (Bld) [#/Vol] 11.3 10*3/uL High 4.4-11.0 [facility] Comment on above: Performed By: #### L 3300.4400, L700.6800, L100.0100, L500.4050 ####[facility] [address] [place], [address] Comprehensive Metabolic Prof gaon 11-30-2024 Albumin [Mass/Vol] 4.5 g/dL Normal 3.5-5.0 [facility] Comment on above: Performed By: #### L 3300.4400, L700.6800, L100.0100, L500.4050 ####[facility] [address] [place], [address] Albumin/Globulin [Mass ratio] 1.7 {ratio} Normal 0.9-2.4 [facility] Comment on above: Performed By: #### L 3300.4400, L700.6800, L100.0100, L500.4050 ####[facility] [address] [place], [address] ALK PHOS 75 U/L Normal 35-104 [facility] Comment on above: Performed By: #### L 3300.4400, L700.6800, L100.0100, L500.4050 ####[facility] [address] [place], [address] ALT [Catalytic activity/Vol] 17 U/L Normal <=34 [facility] Comment on above: Performed By: #### L 3300.4400, L700.6800, L100.0100, L500.4050 ####[facility] [address] [place], [address] AST [Catalytic activity/Vol] 17 U/L Normal <=31 [facility] Comment on above: Performed By: #### L 3300.4400, L700.6800, L100.0100, L500.4050 ####[facility] [address] [place], [address] Bilirubin [Mass/Vol] 0.35 mg/dL Normal 0.00-1.30 [facility] Comment on above: Performed By: #### L 3300.4400, L700.6800, L100.0100, L500.4050 ####[facility] [address] [place], [address] BUN/CRE 13.9 RATIO Normal 10-20 [facility] Comment on above: Performed By: #### L 3300.4400, L700.6800, L100.0100, L500.4050 ####[facility] [address] [place], [address] Calcium [Mass/Vol] 9.4 mg/dL Normal 7.6-11.0 [facility] Comment on above: Performed By: #### L 3300.4400, L700.6800, L100.0100, L500.4050 ####[facility] [address] [place], [address] Chloride [Moles/Vol] 104 mmol/L Normal 98-108 [facility] Comment on above: Performed By: #### L 3300.4400, L700.6800, L100.0100, L500.4050 ####[facility] [address] [place], [address] CO2 [Moles/Vol] 24.6 mmol/L Normal 21.0-32.0 [facility] Comment on above: Performed By: #### L 3300.4400, L700.6800, L100.0100, L500.4050 ####[facility] [address] [place], [address] Creatinine [Mass/Vol] 0.72 mg/dL Normal 0.70-1.20 [facility] Comment on above: Performed By: #### L 3300.4400, L700.6800, L100.0100, L500.4050 ####[facility] [address] [place], [address] ECRCL 139.36 ml/min Normal 50-250 [facility] Comment on above: Performed By: #### L 3300.4400, L700.6800, L100.0100, L500.4050 ####[facility] [address] [place], [address] GAP 10 Normal 5-15 [facility] Comment on above: Performed By: #### L 3300.4400, L700.6800, L100.0100, L500.4050 ####[facility] [address] [place], [address] GFR/1.73 sq M.predicted among non-blacks MDRD (S/P/Bld) [Vol rate/Area] 112 mL/min/{1.73_m2} Normal >60 [facility] Comment on above: Result Comment: mL/m in/1.73m2 CKD-EPI Creatinine Equation (2020) Performed By: #### L 3300.4400, L700.6800, L100.0100, L500.4050 ####[facility] [address] [place], [address] Globulin (S) [Mass/Vol] 2.6 g/dL Normal 2.2-4.2 [facility] Comment on above: Performed By: #### L 3300.4400, L700.6800, L100.0100, L500.4050 ####[facility] [address] [place], [address] Glucose [Mass/Vol] 92 mg/dL Normal 70-99 [facility] Comment on above: Performed By: #### L 3300.4400, L700.6800, L100.0100, L500.4050 ####[facility] [address] [place], [address] Potassium [Moles/Vol] 3.7 mmol/L Normal 3.3-5.1 [facility] Comment on above: Performed By: #### L 3300.4400, L700.6800, L100.0100, L500.4050 ####[facility] [address] [place], [address] Sodium [Moles/Vol] 139 mmol/L Normal 133-145 [facility] Comment on above: Performed By: #### L 3300.4400, L700.6800, L100.0100, L500.4050 ####[facility] [address] [place], [address] T PROT 7.1 g/dL Normal 5.9-8.4 [facility] Comment on above: Performed By: #### L 3300.4400, L700.6800, L100.0100, L500.4050 ####[facility] [address] [place], [address] Urea nitrogen [Mass/Vol] 10 mg/dL Normal 4-19 [facility] Comment on above: Performed By: #### L 3300.4400, L700.6800, L100.0100, L500.4050 ####[facility] [address] [place], [address] Emergency Department Summary on 11-30-2024 Emergency Department Summary [facility] Medical Records Department [address] [place] [address] Emergency Department Summary 11/30/24 MR#: [id number] Acct: [id number] Name: DELON HAJI Rep #: [id number] : 1990 34 From: Maurisio Richards DO [...] Patient states that she saw neurology in [place] in October of this year. She states [...] depressed o (more content not included)... Normal [facility] ,Serum,hCG Quali.on 11-30-2024 HCG, SERUM QUAL Negative Normal [facility] Comment on above: Performed By: #### L 3300.4400, L700.6800, L100.0100, L500.4050 ####[facility] [address] [place], [address] Urinalysis, Completeon 11-30 EPI,SQUAMOUS 0-5 SEEN Normal 5-10 [facility] Comment on above: Order Comment: CLEAN CATCH Performed By: #### L 400.0001 #### [facility] [address] [place], [address] RBC 0-5 SEEN Normal 0-5 [facility] Comment on above: Order Comment: CLEAN CATCH Performed By: #### L 400.0001 #### [facility] [address] [place], [address] WBC 0-5 SEEN Normal 0-5 [facility] Comment on above: Order Comment: CLEAN CATCH Performed By: #### L 400.0001 #### [facility] [address] [place], [address] BACTERIA 0 SEEN Normal None Seen [facility] Comment on above: Order Comment: CLEAN CATCH Performed By: #### L 400.0001 #### [facility] [address] [place], [address] Mucus Ql (Urine sed) 0 SEEN Normal [facility] Comment on above: Order Comment: CLEAN CATCH Performed By: #### L 400.0001 #### [facility] [address] [place], [address] Urine Drug Screen (VISTA)on 11-30-2024 AMPHETAMINES Negative Normal <1000 ng/mL [facility] Comment on above: Performed By: #### L 505.5000, L501.9100 ####[facility] [address] [place], [address] BARBITIURATES Negative Normal < 200 ng/mL [facility] Comment on above: Performed By: #### L 505.5000, L501.9100 ####[facility] [address] [place], [address] BENZODIAZIPINE Positive Normal < 200 ng/mL [facility] Comment on above: Result Comment: If c onfirmation testing is needed, a separate order will be required to send out testing to the reference laboratory. Performed By: #### L 505.5000, L501.9100 ####[facility] [address] [place], [address] BUP Ur Drug Scr Negative Normal < 200 ng/mL [facility] Comment on above: Performed By: #### L 505.5000, L501.9100 ####[facility] [address] [place], [address] COCAINE Negative Normal < 300 ng/mL [facility] Comment on above: Performed By: #### L 505.5000, L501.9100 ####[facility] [address] [place], [address] Fentanyl Negative Normal [facility] Comment on above: Performed By: #### L 505.5000, L501.9100 ####[facility] [address] [place], [address] METHADONE Negative Normal < 300 ng/mL [facility] Comment on above: Performed By: #### L 505.5000, L501.9100 ####[facility] [address] [place], [address] OPIATES Negative Normal < 300 ng/mL [facility] Comment on above: Performed By: #### L 505.5000, L501.9100 ####[facility] [address] [place], [address] OXYCODONE Negative Normal < 100 ng/mL [facility] Comment on above: Performed By: #### L 505.5000, L501.9100 ####[facility] [address] [place], [address] PCP Positive Normal < 25 ng/mL [facility] Comment on above: Result Comment: If c onfirmation testing is needed, a separate order will be required to send out testing to the reference laboratory. Performed By: #### L 505.5000, L501.9100 ####[facility] [address] [place], [address] THC Negative Normal < 50 ng/mL [facility] Comment on above: Performed By: #### L 505.5000, L501.9100 ####[facility] [address] [place], [address] Alcohol, Blood (Medical)-Ser on 11-10-2024 SERUM ETOH < 10.1 Normal <=10.0 [facility] Comment on above: Result Comment: This test is for medical purposes only. The legal definition of intoxication varies according to local law. Performed By: #### L 501.9100, L505.5000, L100.0100, L500.4050, L700.6800, L501.2450 ####[facility] [address] [place], [address] CBC W/Diff, Automatedon 10-24 Absolute Lymph 2.96 X10 3/uL Normal 0.83-4.51 [facility] Comment on above: Performed By: #### L 501.9100, L505.5000, L100.0100, L500.4050, L700.6800, L501.2450 ####[facility] [address] [place], [address] Absolute Neut 6.2 X10 3/uL Normal 2.0-7.7 [facility] Comment on above: Performed By: #### L 501.9100, L505.5000, L100.0100, L500.4050, L700.6800, L501.2450 ####[facility] [address] [place], [address] Basophils/100 WBC (Bld) 1.0 % Normal 0-1 [facility] Comment on above: Performed By: #### L 501.9100, L505.5000, L100.0100, L500.4050, L700.6800, L501.2450 ####[facility] [address] [place], [address] Eosinophils/100 WBC (Bld) 2.4 % Normal 0-5 [facility] Comment on above: Performed By: #### L 501.9100, L505.5000, L100.0100, L500.4050, L700.6800, L501.2450 ####[facility] [address] [place], [address] Erythrocyte distribution width (RBC) [Ratio] 12.6 % Normal 11.6-14.6 [facility] Comment on above: Performed By: #### L 501.9100, L505.5000, L100.0100, L500.4050, L700.6800, L501.2450 ####[facility] [address] [place], [address] Hematocrit (Bld) [Volume fraction] 40.4 % Normal 37-47 [facility] Comment on above: Performed By: #### L 501.9100, L505.5000, L100.0100, L500.4050, L700.6800, L501.2450 ####[facility] [address] [place], [address] Hemoglobin (Bld) [Mass/Vol] 14.2 g/dL Normal 12.0-15.0 [facility] Comment on above: Performed By: #### L 501.9100, L505.5000, L100.0100, L500.4050, L700.6800, L501.2450 ####[facility] [address] [place], [address] IG% 0.400 Normal 0.0-0.9 [facility] Comment on above: Result Comment: IG% - Immature Granulocytes (promyelocytes, myelocytes and metamyelocytes) > 1% indicates that a LEFT SHIFT is Present. Performed By: #### L 501.9100, L505.5000, L100.0100, L500.4050, L700.6800, L501.2450 ####[facility] [address] [place], [address] Lymphocytes/100 WBC (Bld) 29.1 % Normal 19-41 [facility] Comment on above: Performed By: #### L 501.9100, L505.5000, L100.0100, L500.4050, L700.6800, L501.2450 ####[facility] [address] [place], [address] MCH (RBC) [Entitic mass] 33.3 pg High 27.0-32.0 [facility] Comment on above: Performed By: #### L 501.9100, L505.5000, L100.0100, L500.4050, L700.6800, L501.2450 ####[facility] [address] [place], [address] MCHC (RBC) [Mass/Vol] 35.1 g/dL Normal 32-36 [facility] Comment on above: Performed By: #### L 501.9100, L505.5000, L100.0100, L500.4050, L700.6800, L501.2450 ####[facility] [address] [place], [address] MCV (RBC) [Entitic vol] 94.8 fL Normal 81-99 [facility] Comment on above: Performed By: #### L 501.9100, L505.5000, L100.0100, L500.4050, L700.6800, L501.2450 ####[facility] [address] [place], [address] Monocytes/100 WBC (Bld) 6.5 % Normal 0-10 [facility] Comment on above: Performed By: #### L 501.9100, L505.5000, L100.0100, L500.4050, L700.6800, L501.2450 ####[facility] [address] [place], [address] Neutrophils/100 WBC (Bld) 60.6 % Normal 47-70 [facility] Comment on above: Performed By: #### L 501.9100, L505.5000, L100.0100, L500.4050, L700.6800, L501.2450 ####[facility] [address] [place], [address] Nucleated RBC (Bld) [#/Vol] 0 10*3/uL Normal 0-5 [facility] Comment on above: Performed By: #### L 501.9100, L505.5000, L100.0100, L500.4050, L700.6800, L501.2450 ####[facility] [address] [place], [address] Platelet mean volume (Bld) [Entitic vol] 8.8 fL Normal 6.2-12.0 [facility] Comment on above: Performed By: #### L 501.9100, L505.5000, L100.0100, L500.4050, L700.6800, L501.2450 ####[facility] [address] [place], [address] Platelets (Bld) [#/Vol] 287 10*3/uL Normal 150-450 [facility] Comment on above: Performed By: #### L 501.9100, L505.5000, L100.0100, L500.4050, L700.6800, L501.2450 ####[facility] [address] [place], [address] RBC (Bld) [#/Vol] 4.26 10*6/uL Normal 4.2-5.4 [facility] Comment on above: Performed By: #### L 501.9100, L505.5000, L100.0100, L500.4050, L700.6800, L501.2450 ####[facility] [address] [place], [address] RDW SD 43.9 fl Normal 35.1-43.9 [facility] Comment on above: Performed By: #### L 501.9100, L505.5000, L100.0100, L500.4050, L700.6800, L501.2450 ####[facility] [address] [place], [address] WBC (Bld) [#/Vol] 10.2 10*3/uL Normal 4.4-11.0 [facility] Comment on above: Performed By: #### L 501.9100, L505.5000, L100.0100, L500.4050, L700.6800, L501.2450 ####[facility] [address] [place], [address] Comprehensive Metabolic Prof ilon 11-10-2024 Albumin [Mass/Vol] 4.5 g/dL Normal 3.5-5.0 [facility] Comment on above: Performed By: #### L 501.9100, L505.5000, L100.0100, L500.4050, L700.6800, L501.2450 ####[facility] [address] [place], [address] Albumin/Globulin [Mass ratio] 1.8 {ratio} Normal 0.9-2.4 [facility] Comment on above: Performed By: #### L 501.9100, L505.5000, L100.0100, L500.4050, L700.6800, L501.2450 ####[facility] [address] [place], [address] ALK PHOS 84 U/L Normal 35-104 [facility] Comment on above: Performed By: #### L 501.9100, L505.5000, L100.0100, L500.4050, L700.6800, L501.2450 ####[facility] [address] [place], [address] ALT [Catalytic activity/Vol] 23 U/L Normal <=34 [facility] Comment on above: Performed By: #### L 501.9100, L505.5000, L100.0100, L500.4050, L700.6800, L501.2450 ####[facility] [address] [place], [address] AST [Catalytic activity/Vol] 24 U/L Normal <=31 [facility] Comment on above: Performed By: #### L 501.9100, L505.5000, L100.0100, L500.4050, L700.6800, L501.2450 ####[facility] [address] [place], [address] Bilirubin [Mass/Vol] 0.53 mg/dL Normal 0.00-1.30 [facility] Comment on above: Performed By: #### L 501.9100, L505.5000, L100.0100, L500.4050, L700.6800, L501.2450 ####[facility] [address] [place], [address] BUN/CRE 13.4 RATIO Normal 10-20 [facility] Comment on above: Performed By: #### L 501.9100, L505.5000, L100.0100, L500.4050, L700.6800, L501.2450 ####[facility] [address] [place], [address] Calcium [Mass/Vol] 9.3 mg/dL Normal 7.6-11.0 [facility] Comment on above: Performed By: #### L 501.9100, L505.5000, L100.0100, L500.4050, L700.6800, L501.2450 ####[facility] [address] [place], [address] Chloride [Moles/Vol] 104 mmol/L Normal 98-108 [facility] Comment on above: Performed By: #### L 501.9100, L505.5000, L100.0100, L500.4050, L700.6800, L501.2450 ####[facility] [address] [place], [address] CO2 [Moles/Vol] 22.6 mmol/L Normal 21.0-32.0 [facility] Comment on above: Performed By: #### L 501.9100, L505.5000, L100.0100, L500.4050, L700.6800, L501.2450 ####[facility] [address] [place], [address] Creatinine [Mass/Vol] 0.80 mg/dL Normal 0.70-1.20 [facility] Comment on above: Performed By: #### L 501.9100, L505.5000, L100.0100, L500.4050, L700.6800, L501.2450 ####[facility] [address] [place], [address] ECRCL 126.84 ml/min Normal 50-250 [facility] Comment on above: Performed By: #### L 501.9100, L505.5000, L100.0100, L500.4050, L700.6800, L501.2450 ####[facility] [address] [place], [address] GAP 10 Normal 5-15 [facility] Comment on above: Performed By: #### L 501.9100, L505.5000, L100.0100, L500.4050, L700.6800, L501.2450 ####[facility] [address] [place], [address] GFR/1.73 sq M.predicted among non-blacks MDRD (S/P/Bld) [Vol rate/Area] 99 mL/min/{1.73_m2} Normal >60 [facility] Comment on above: Result Comment: mL/m in/1.73m2 CKD-EPI Creatinine Equation (2020) Performed By: #### L 501.9100, L505.5000, L100.0100, L500.4050, L700.6800, L501.2450 ####[facility] [address] [place], [address] Globulin (S) [Mass/Vol] 2.4 g/dL Normal 2.2-4.2 [facility] Comment on above: Performed By: #### L 501.9100, L505.5000, L100.0100, L500.4050, L700.6800, L501.2450 ####[facility] [address] [place], [address] Glucose [Mass/Vol] 91 mg/dL Normal 70-99 [facility] Comment on above: Performed By: #### L 501.9100, L505.5000, L100.0100, L500.4050, L700.6800, L501.2450 ####[facility] [address] [place], [address] Potassium [Moles/Vol] 4.0 mmol/L Normal 3.3-5.1 [facility] Comment on above: Performed By: #### L 501.9100, L505.5000, L100.0100, L500.4050, L700.6800, L501.2450 ####[facility] [address] [place], [address] Sodium [Moles/Vol] 136 mmol/L Normal 133-145 [facility] Comment on above: Performed By: #### L 501.9100, L505.5000, L100.0100, L500.4050, L700.6800, L501.2450 ####[facility] [address] [place], [address] T PROT 6.9 g/dL Normal 5.9-8.4 [facility] Comment on above: Performed By: #### L 501.9100, L505.5000, L100.0100, L500.4050, L700.6800, L501.2450 ####[facility] [address] [place], [address] Urea nitrogen [Mass/Vol] 11 mg/dL Normal 4-19 [facility] Comment on above: Performed By: #### L 501.9100, L505.5000, L100.0100, L500.4050, L700.6800, L501.2450 ####[facility] [address] [place], [address] Emergency Department Summary on 11-10-2024 Emergency Department Summary [facility] Medical Records Department [address] [place] [address] Emergency Department Summary 11/10/24 MR#: [id number] Acct: [id number] Name: DELON HAJI Rep #: [id number] : 1990 34 From: Jignesh Fuetnes DO PCP: Care Physician,No Primary Status:ADM IN Location: [place] [address] History of Present Illness Chief Complaint: Substance [...] diarrhea. Patient denies any fevers or chills. [facility] Medical History [...] for substan (more content not included)... Normal [facility] H AND P Exam - Hospitaliston 11-10-2024 H&P Exam - Hospitalist [facility] Medical Records Department [address] [place] [address] H P Exam - Hospitalist 11/10/24 1443 MR#: [id number] Acct: [id number] Name: DELON HAJI Rep #: [id number] : 1990 34 From: Caro Chavez MD [...] 16 years old who presents to the [facility] on 11/10/24 w/ last EtOH intake [...] alcohol level upon requested evaluation of patient. [facility] Medical History IUD (intrauterine device) in [...] ecchymoses, abr (more content not included)... Normal [facility] Lipaseon 11-10-2024 Lipase [Catalytic activity/Vol] 24 U/L Normal 13-75 [facility] Comment on above: Result Comment: Tamir talamantes note: LIPASE revised reference range effective 22. New Lipase methodology. Expected to produce lower values than the previous assay method. NEW Reference Range: 13 - 75 U/L Performed By: #### L 501.9100, L505.5000, L100.0100, L500.4050, L700.6800, L501.2450 ####[facility] [address] [place], [address] Magnesiumon 11-10-2024 Magnesium [Mass/Vol] 2.2 mg/dL Normal 1.5-2.2 [facility] Comment on above: Order Comment: Comme nts: May add to ED labs Comments: may add to ED labs Performed By: #### L 501.5200, L501.2300 #### [facility] [address] [place], [address] Phosphoruson 11-10-2024 Phosphate [Mass/Vol] 2.2 mg/dL Low 2.7-4.5 [facility] Comment on above: Order Comment: Comme nts: May add to ED labs Comments: may add to ED labs Performed By: #### L 501.5200, L501.2300 #### [facility] [address] [place], [place], [address] ,Serum,hCG Quali.on 11-10-2024 HCG, SERUM QUAL Negative Normal [facility] Comment on above: Performed By: #### L 501.9100, L505.5000, L100.0100, L500.4050, L700.6800, L501.2450 ####[facility] [address] [place], [place], [address] Urine Drug Screen (VISTA)on 11-10-2024 AMPHETAMINES Negative Normal <1000 ng/mL [facility] Comment on above: Performed By: #### L 501.9100, L505.5000, L100.0100, L500.4050, L700.6800, L501.2450 ####[facility] [address] [place], [place], [address] BARBITIURATES Negative Normal < 200 ng/mL [facility] Comment on above: Performed By: #### L 501.9100, L505.5000, L100.0100, L500.4050, L700.6800, L501.2450 ####[facility] [address] [place], [place], [address] BENZODIAZIPINE Positive Normal < 200 ng/mL [facility] Comment on above: Result Comment: If c onfirmation testing is needed, a separate order will be required to send out testing to the reference laboratory. Performed By: #### L 501.9100, L505.5000, L100.0100, L500.4050, L700.6800, L501.2450 ####[facility] [address] [place], [place], [address] BUP Ur Drug Scr Negative Normal < 200 ng/mL [facility] Comment on above: Performed By: #### L 501.9100, L505.5000, L100.0100, L500.4050, L700.6800, L501.2450 ####[facility] [address] [place], [address] COCAINE Negative Normal < 300 ng/mL [facility] Comment on above: Performed By: #### L 501.9100, L505.5000, L100.0100, L500.4050, L700.6800, L501.2450 ####[facility] [address] [place], [place], [phone] Fentanyl Negative Normal [facility] Comment on above: Performed By: #### L 501.9100, L505.5000, L100.0100, L500.4050, L700.6800, L501.2450 ####[facility] [address] [place], [place], [phone] METHADONE Negative Normal < 300 ng/mL [facility] Comment on above: Performed By: #### L 501.9100, L505.5000, L100.0100, L500.4050, L700.6800, L501.2450 ####[facility] [address] [place], [place], [phone] OPIATES Negative Normal < 300 ng/mL [facility] Comment on above: Performed By: #### L 501.9100, L505.5000, L100.0100, L500.4050, L700.6800, L501.2450 ####[facility] [address] [place], [place], [phone] OXYCODONE Negative Normal < 100 ng/mL [facility] Comment on above: Performed By: #### L 501.9100, L505.5000, L100.0100, L500.4050, L700.6800, L501.2450 ####[facility] [address] [place], [place], [phone] PCP Negative Normal < 25 ng/mL [facility] Comment on above: Performed By: #### L 501.9100, L505.5000, L100.0100, L500.4050, L700.6800, L501.2450 ####[facility] [address] [place], [address] THC Negative Normal < 50 ng/mL [facility] Comment on above: Performed By: #### L 501.9100, L505.5000, L100.0100, L500.4050, L700.6800, L501.2450 ####[facility] [address] [place], [address] XR FINGER THUMB 3 VIEWS LEFT on [...] 03/18/2024 4:09:39 PM Ordering Provider: JENA SWANSON [facility] ([place]) XR FINGER THUMB 3 VIEWS LEFT on [...] 02/25/2024 6:46:27 PM Ordering Provider: CARMEN BROWN [facility] ([place]) Bacteria Wnd Culton 01-06-20 24 Bacteria identified Cx Nom (Wound) ORGANISM ID: 1 Many Methicillin-RESISTANT Staphylococcus aureus (MRSA) GRAM STAIN: Few Gram positive cocci No Polymorphonuclear Leukocytes Moderate Red Blood Cells ORGANISM ID: 1 (METHICILLIN RESISTANT STAPHYLOCOCCUS AUREUS) ------ ANTIBIOTIC INTERPRETATION VANESSA STATUS REFERENCE RANGE ------ Oxacillin R >=4 F Susceptible <=2 , [...] , Intermediate >4 , Resistant >8 Abnormal [facility] Comment on above: Performed By: #### 6 462-6 ####[facility] LABCLIA [id number] [address] [facility] CNOVon 11-12-2023 CNOV Office Visit (UCTR ) DELON HAJI ([id number]) 1990 F Date Time Provider Department 11/12/23 11:00 AM JAYLYN CHARLTON [facility] During your visit today, we recorded [...] to this plan. She will go to [facility]. Allergies As of Date: 11/12/2023 Noted Allergy Reaction KEFLEX (CEPHALEXIN) 09/27/2023 8 - GI Upset TOMATO 04/02/2022 8 - GI Upset Date Reviewed: 11/12/2023 Reviewed by: Jacqui Benton - Fully Assessed Reason for Visit: Thumb Injury [6213] Cmt: Right thumb pain. X3 days Primary [...] 1 capsule by mouth once daily. - Ddobxlaa-Kf-Vsg-Fe-FA tab Take 1 tablet by mouth once [...] Status:Closed by JAYLYN CHARLTON on 11/12/23 Normal [facility] CNCOon 09-28-2023 CNCO Letter Text [facility] CNPNon 09-28-2023 CNPN Telephone (ORTHWS) DELON HAJI ([id number]) 1990 F Date Time Provider Department 09/28/23 [...] mychart. Letter printed and placed at front clerk for pickup tomorrow per patient request. Rayna Tanner RN Allergies As of Date: 09/28/2023 Noted Allergy Reaction KEFLEX (CEPHALEXIN) 09/27/2023 8 - GI Upset TOMATO 04/02/2022 8 - GI Upset Date Reviewed: 09/27/2023 Reviewed by: Giuliana Bird RN - Fully Assessed Reason for Visit: Patient Question [3417] Prescriptions as of 09/28/2023 - lamoTRIgine ER [...] 1 capsule by mouth once daily. - Hhkpikgs-Aq-Kgt-Fe-FA tab Take 1 tablet by mouth once [...] Encounter Status:Closed by RAYNA TANNER on 09/28/23 [facility] CNOVon 09-27-2023 CNOV Office Visit (ORTHWS ) DELON HAJI ([id number]) 1990 F Date Time Provider Department 09/27/23 [...] Becky Flor PA-C Department of Orthopaedics Orthopaedics [facility] [address] Dept: [phone] Dept September 27, 2023 CHIEF COMPLAINT: New [...] the most painful for her. This is [facility]. ASSESSMENT: S62.768X Closed fracture of tuft of distal phalanx [...] as to contrast therapies and/or to take analgesics/anti-infla mmatories as needed and all contraindications were reviewed. [...] tuft of the LEFT 3rd distal phalanx. Retail Shift Manager: DARREN Transcribe Date/Time: Sep 22 2023 11:32A [...] not gloria (more content not included)... Normal [facility] CNOVon 09-24-2023 CNOV Office Visit (FRFHWS ) DELON HAJI ([id number]) 1990 F Date Time Provider Department 09/24/23 11:00 AM VIET ESPARZA During your visit today, we recorded the following information about you: Viet Esparza V, DO 09/27/2023 8:56 AM Signed opened in error- Viet Esparza V, DO 09/27/2023 8:56 AM Signed opened in error no charge, visit rescheduled. Referring Provider: MEG ORTEZ [[id number]] Allergies As of Date: 09/24/2023 Noted Allergy Reaction TOMATO 04/02/2022 8 - GI Upset Date Reviewed: 09/22/2023 Reviewed by: Carmen Brush - Fully Assessed Reason for Visit: Left middle finger injury REF: Alban Ortez x-ray: 09/22/2023 [Other] Visit Diagnoses:Injury of finger of left hand, initial encounter [S69.92XA] Closed fracture of tuft of distal phalanx of finger [S62.639A] Order(s):CONSULT TO ORTHOPAEDICS [9026] Order #: [id number]: 1 Prescriptions as of 09/27/2023 - cephALEXin [...] 1 capsule by mouth once daily. - Fybksoyw-Xx-Bxg-Fe-FA tab Take 1 tablet by mouth once [...] by VIET ESPARZA V on 09/27/23 Normal [facility] Ross 09-22-2023 CNOV Office Visit (UCWSTR ) DELON HAJI ([id number]) 1990 F Date Time Provider Department 09/22/23 11:00 AM [facility]Z [facility] During your visit today, we recorded the following information about you: Temperature Pulse Respiration Blood pressure 98.2 degrees 88/minute 16/minute 110/64 Weight 88.5 kg Ortez Meg, ALEXANDER.INTERNATIONAL MARKETING EXECUTIVE 09/22/2023 12:02 PM Signed This note was [...] history is provided by the patient. No educational interpreter was used. Musculoskeletal Problem This is a [...] daily. (Patient not taking: Reported on 03/03/2019) Pphxvtay-Hb-Ofx-Fe-FA tab Take 1 tablet by mouth once [...] Negative for adenopathy. Does not bruise/bleed easily. Psychiatric/Behaviora l: Negative for agitation and behavioral problems. Objective BP 110/64 Pulse 88 Temp 36.8 ?C (98.2 ?F) Resp 16 Wt 88.5 kg (195 lb) LMP 02/28/2018 SpO2 98% BMI 28.80 kg/m? Physical Exam Vitals and (more content not included)... Normal [facility] XR DIGIT 3V FRONTAL/LAT/OBL LTon 09-22-2023 XR [...] tuft of the LEFT 3rd distal phalanx. Retail Shift Manager: DARREN Transcribe Date/Time: Sep 22 2023 11:32A Dictated by : JANIE MCDOWELL DO This examination was interpreted and the report reviewed and electronically signed by: JANIE MCDOWELL DO on Sep 22 2023 11:35AM EST [id number] Normal [facility] XR Finger - left AP and Late ral and obliqueon 09-22-2023 IMPRESSION: Suspect nondisplaced fracture tuft of the LEFT 3rd distal phalanx. Retail Shift Manager: DARREN Transcribe Date/Time: Sep 22 2023 11:32A [...] spaces are maintained. DIVISION OF RADIOLOGY Provider, Derek Conklin - 09/22/2023 * * *Final Report* * [...] tuft of the LEFT 3rd distal phalanx. Retail Shift Manager: PSCB Transcribe Date/Time: Sep 22 2023 11:32A Dictated by : JANIE MCDOWELL DO This examination was interpreted and the report reviewed and electronically signed by: JANIE MCDOWELL DO on Sep 22 2023 11:35AM [facility] Radiology Study observation (narrative) [facility] XR Finger - left AP and Late ral and obliqueOrdered By: Ccf Provider on 09-22-2023 [facility] Rogelio 08-25-2023 Lamotrigine Lvl 3.5 UG/ML Normal 2.0-20.0 [facility] ([place]) Comment on above: Result Comment: Dete ction Limit = 1.0 Performed At: [facility] [id number] Asim Montes MD Ph:[phone] Performed By: #### M DW, CMP, ANEU, LAC, 389459, GFR, PREGS, CBC, MG, ADIFF ####[address] [address] .Auto Diffon 08-21-2023 Basophil, Absolute 0.0 10 3/mcL Normal 0.0-0.2 [facility] ([place]) Comment on above: Performed By: #### M DW, CMP, ANEU, LAC, 231382, GFR, PREGS, CBC, MG, ADIFF #### [address] [address] Basophils/100 WBC (Bld) 0.3 % Normal 0.0-2.5 [facility] ([place]) Comment on above: Performed By: #### M DW, CMP, ANEU, LAC, 464198, GFR, PREGS, CBC, MG, ADIFF #### [address] [address] Eosinophil, Absolute 0.0 10 3/mcL Normal 0.0-0.4 [facility] ([place]) Comment on above: Performed By: #### M DW, CMP, ANEU, LAC, 164202, GFR, PREGS, CBC, MG, ADIFF #### [address] [address] Eosinophils/100 WBC (Bld) 0.3 % Normal 0.0-7.0 [facility] ([place]) Comment on above: Performed By: #### M DW, CMP, ANEU, LAC, 834485, GFR, PREGS, CBC, MG, ADIFF #### [address] [address] Lymphocyte, Absolute 1.1 10 3/mcL Normal 0.8-3.9 [facility] ([place]) Comment on above: Performed By: #### M DW, CMP, ANEU, LAC, 468759, GFR, PREGS, CBC, MG, ADIFF #### [address] [address] Lymphocytes/100 WBC (Bld) 9.3 % Low 10.0-50.0 [facility] ([place]) Comment on above: Performed By: #### M DW, CMP, ANEU, LAC, 095296, GFR, PREGS, CBC, MG, ADIFF #### [address] [address] Monocyte, Absolute 0.5 10 3/mcL Normal 0.2-1.0 [facility] ([place]) Comment on above: Performed By: #### M DW, CMP, ANEU, LAC, 326142, GFR, PREGS, CBC, MG, ADIFF #### [address] [address] Monocytes/100 WBC (Bld) 4.2 % Normal 1.7-13.0 [facility] ([place]) Comment on above: Performed By: #### M DW, CMP, ANEU, LAC, 184743, GFR, PREGS, CBC, MG, ADIFF #### [address] [address] Neutrophils/100 WBC (Bld) 85.9 % High 37.0-80.0 [facility] ([place]) Comment on above: Performed By: #### M DW, CMP, ANEU, LAC, 800472, GFR, PREGS, CBC, MG, ADIFF #### [address] [address] .GFRon 08-21-2023 GFR 100 ml/min/1.73sqm Normal [facility] ([place]) Comment on above: Result Comment: GFR Population [...] By: #### M DW, CMP, ANEU, LAC, 863692, GFR, PREGS, CBC, MG, ADIFF ####[address] [place], [place] [address] GFR Non- 83 ml/min/1.73sqm Normal [facility] ([place]) Comment on above: Result Comment: GFR Population [...] By: #### M DW, CMP, ANEU, LAC, 030778, GFR, PREGS, CBC, MG, ADIFF ####[place] [address] [place], [place] [address] .MDWon 08-21-2023 Monocyte Distribution Width 15.17 Normal 0.00-20.00 [facility] ([place]) Comment on above: Result Comment: For ED adult patients suspected of sepsis, MDW<=20.0 does not rule out sepsis or risk of sepsis Performed By: #### M DW, CMP, ANEU, LAC, 446039, GFR, PREGS, CBC, MG, ADIFF #### [address] [place], [place] [address] .NEUABSon 08-21-2023 Neutrophil, Absolute 9.8 10 3/mcL High 2.9-6.2 [facility] ([place]) Comment on above: Performed By: #### M DW, CMP, ANEU, LAC, 767135, GFR, PREGS, CBC, MG, ADIFF #### [address] [place], [place] [address] .Urinalysis Microscopic (AO) on 08-21-2023 UA Bacteria 2+ /hpf Abnormal [facility] ([place]) Comment on above: Performed By: #### U AMICAO, UDRUG, UA ####[address] [place] [address] UA Mucous Trace Normal [facility] ([place]) Comment on above: Performed By: #### U AMICAO, UDRUG, UA ####[address] [place] [address] UA RBC None Seen Normal None Seen [facility] ([place]) Comment on above: Performed By: #### U AMICAO, UDRUG, UA ####[address] [place] [address] UA Squam Epithelial 5-10 Abnormal None Seen [facility] ([place]) Comment on above: Performed By: #### U AMICAO, UDRUG, UA ####[address] [place] [address] UA WBC 0-5 Abnormal None Seen [facility] ([place]) Comment on above: Performed By: #### U AMICAO, UDRUG, UA ####[address] [place] [address] CBCon 08-21-2023 Erythrocyte distribution width (RBC) [Ratio] 13.3 % Normal 11.5-14.5 [facility] ([place]) Comment on above: Performed By: #### M DW, CMP, ANEU, LAC, 186343, GFR, PREGS, CBC, MG, ADIFF #### [address] [place] [address] Hematocrit (Bld) [Volume fraction] 40.3 % Normal 37.0-47.0 [facility] ([place]) Comment on above: Performed By: #### M DW, CMP, ANEU, LAC, 380900, GFR, PREGS, CBC, MG, ADIFF #### [address] [address] Hgb 13.9 G/dL Normal 12.0-16.0 [facility] ([place]) Comment on above: Performed By: #### M DW, CMP, ANEU, LAC, 823885, GFR, PREGS, CBC, MG, ADIFF #### [place] [address] MCH (RBC) [Entitic mass] 32.2 pg High 27.0-31.2 [facility] ([place]) Comment on above: Performed By: #### M DW, CMP, ANEU, LAC, 715922, GFR, PREGS, CBC, MG, ADIFF #### [place] [address] MCHC 34.5 G/dL Normal 33.0-37.0 [facility] ([place]) Comment on above: Performed By: #### M DW, CMP, ANEU, LAC, 937230, GFR, PREGS, CBC, MG, ADIFF #### [address] [address] MCV (RBC) [Entitic vol] 93.2 fL Normal 80.0-94.0 [facility] ([place]) Comment on above: Performed By: #### M DW, CMP, ANEU, LAC, 779152, GFR, PREGS, CBC, MG, ADIFF #### [place] [address] Platelet 275 10 3/mcL Normal 130-400 [facility] ([place]) Comment on above: Performed By: #### M DW, CMP, ANEU, LAC, 657982, GFR, PREGS, CBC, MG, ADIFF #### [place] [address] Platelet mean volume (Bld) [Entitic vol] 7.3 fL Low 7.4-10.4 [facility] ([place]) Comment on above: Performed By: #### M DW, CMP, ANEU, LAC, 790555, GFR, PREGS, CBC, MG, ADIFF #### [address] [address] RBC 4.33 10 6/mcL Normal 4.20-5.40 [facility] ([place]) Comment on above: Performed By: #### M DW, CMP, ANEU, LAC, 100805, GFR, PREGS, CBC, MG, ADIFF #### [address] [address] WBC 11.4 10 3/mcL High 4.6-10.8 [facility] ([place]) Comment on above: Performed By: #### M DW, CMP, ANEU, LAC, 226820, GFR, PREGS, CBC, MG, ADIFF #### [address] [address] CMPon 08-21-2023 Albumin Level 4.1 G/dL Normal 3.5-5.0 [facility] ([place]) Comment on above: Performed By: #### M DW, CMP, ANEU, LAC, 887740, GFR, PREGS, CBC, MG, ADIFF #### [address] [address] Albumin/Globulin [Mass ratio] 1.4 {ratio} Normal 1.1-2.5 [facility] ([place]) Comment on above: Performed By: #### M DW, CMP, ANEU, LAC, 471323, GFR, PREGS, CBC, MG, ADIFF #### [address] [address] ALP [Catalytic activity/Vol] 83 U/L Normal 40-135 [facility] ([place]) Comment on above: Performed By: #### M DW, CMP, ANEU, LAC, 464708, GFR, PREGS, CBC, MG, ADIFF #### [address] [address] ALT [Catalytic activity/Vol] 19 U/L Normal 14-59 [facility] ([place]) Comment on above: Performed By: #### M DW, CMP, ANEU, LAC, 941117, GFR, PREGS, CBC, MG, ADIFF #### [address] [address] AST [Catalytic activity/Vol] 10 U/L Normal 10-40 [facility] ([place]) Comment on above: Performed By: #### M DW, CMP, ANEU, LAC, 370470, GFR, PREGS, CBC, MG, ADIFF #### [address] [address] Bili Total 0.4 mg/dL Normal 0.2-1.0 [facility] ([place]) Comment on above: Result Comment: Use of this assay is not recommended for patients undergoing treatment with eltrombopag due to the potential for falsely elevated results. Performed By: #### M DW, CMP, ANEU, LAC, 688022, GFR, PREGS, CBC, MG, ADIFF #### [address] [address] BUN/Creatinine Ratio 16 ratio Normal 7-27 [facility] ([place]) Comment on above: Performed By: #### M DW, CMP, ANEU, LAC, 010617, GFR, PREGS, CBC, MG, ADIFF #### [address] [address] Calcium [Mass/Vol] 9.2 mg/dL Normal 8.4-10.2 [facility] ([place]) Comment on above: Performed By: #### M DW, CMP, ANEU, LAC, 217741, GFR, PREGS, CBC, MG, ADIFF #### [address] [address] Chloride [Moles/Vol] 106 mmol/L Normal 98-107 [facility] ([place]) Comment on above: Performed By: #### M DW, CMP, ANEU, LAC, 580466, GFR, PREGS, CBC, MG, ADIFF #### [address] [address] CO2 [Moles/Vol] 28 mmol/L Normal 22-29 [facility] ([place]) Comment on above: Performed By: #### M DW, CMP, ANEU, LAC, 546855, GFR, PREGS, CBC, MG, ADIFF #### [address] [address] Creatinine [Mass/Vol] 0.80 mg/dL Normal 0.55-1.02 [facility] ([place]) Comment on above: Performed By: #### M DW, CMP, ANEU, LAC, 234598, GFR, PREGS, CBC, MG, ADIFF #### [address] [address] Electrolyte Balance 8.0 mEq/L Normal 4.0-15.0 [facility] ([place]) Comment on above: Performed By: #### M DW, CMP, ANEU, LAC, 003788, GFR, PREGS, CBC, MG, ADIFF #### [address] [address] Globulin 3.0 G/dL Normal [facility] ([place]) Comment on above: Performed By: #### M DW, CMP, ANEU, LAC, 217569, GFR, PREGS, CBC, MG, ADIFF #### [address] [address] Glucose [Mass/Vol] 104 mg/dL Normal 70-105 [facility] ([place]) Comment on above: Performed By: #### M DW, CMP, ANEU, LAC, 255264, GFR, PREGS, CBC, MG, ADIFF #### [address] [address] Potassium [Moles/Vol] 4.4 mmol/L Normal 3.5-5.1 [facility] ([place]) Comment on above: Performed By: #### M DW, CMP, ANEU, LAC, 323777, GFR, PREGS, CBC, MG, ADIFF #### [address] [address] Sodium [Moles/Vol] 142 mmol/L Normal 136-145 [facility] ([place]) Comment on above: Performed By: #### M DW, CMP, ANEU, LAC, 396153, GFR, PREGS, CBC, MG, ADIFF #### [place] [address] Total Protein 7.1 G/dL Normal 6.4-8.2 [facility] ([place]) Comment on above: Performed By: #### M DW, CMP, ANEU, LAC, 151009, GFR, PREGS, CBC, MG, ADIFF #### [address] [place], [place] [address] Urea nitrogen [Mass/Vol] 13 mg/dL Normal 7-18 [facility] ([place]) Comment on above: Performed By: #### M DW, CMP, ANEU, LAC, 005508, GFR, PREGS, CBC, MG, ADIFF #### [facility] [address] [place], [place] [address] CT HEAD OR BRAIN W/O CONTRAS Ton [...] 08/21/2023 2:08:47 PM Ordering Provider: JACOB Saldana [facility] ([place]) LABORATORYOrdered By: SYSTEM SYSTEM on 08-21-2023 Albumin [...] Lactic Acid Lvl 1.2 mmol/L Normal 0.4-2.0 [facility] ([place]) Comment on above: Performed By: #### M DW, CMP, ANEU, LAC, 353948, GFR, PREGS, CBC, MG, ADIFF #### [address] [place], [place] [address] MGon 08-21-2023 Magnesium [Mass/Vol] 2.1 mg/dL Normal 1.8-2.4 [facility] ([place]) Comment on above: Performed By: #### M DW, CMP, ANEU, LAC, 471393, GFR, PREGS, CBC, MG, ADIFF #### [address] [place], [place] [address] PREGSon 08-21-2023 test (s) Negative Normal [facility] ([place]) Comment on above: Performed By: #### M DW, CMP, ANEU, LAC, 057769, GFR, PREGS, CBC, MG, ADIFF #### [address] [place], [place] [address] test (s) int Not detected Invalid Interpretation Code [facility] ([place]) Comment on above: Performed By: #### M DW, CMP, ANEU, LAC, 478178, GFR, PREGS, CBC, MG, ADIFF #### [address] [place], [place] [address] UAon 08-21-2023 Color (U) Yellow Normal [facility] ([place]) Comment on above: Result Comment: Spec imen volumes less than 5 ml may not yield chemical or microscopic results truly reflective of renal function or general metabolic status. Performed By: #### U AMICAO, UDRUG, UA ####[address] [place], [place] [address] Glucose (U) [Mass/Vol] Negative Normal Negative [facility] ([place]) Comment on above: Performed By: #### U AMICAO, UDRUG, UA ####[address] [place], [place] [address] Ketones Ql (U) Negative Normal Negative [facility] ([place]) Comment on above: Performed By: #### U AMICAO, UDRUG, UA ####[address] [place], [place] [address] UA Appear Clear Normal Clear [facility] ([place]) Comment on above: Performed By: #### U AMICAO, UDRUG, UA ####[address] [place], [place] [address] UA Blood Large Abnormal Negative [facility] ([place]) Comment on above: Performed By: #### U AMICAO, UDRUG, UA ####[address] [place], [place] [address] UA Leuk Est Negative Normal Negative [facility] ([place]) Comment on above: Performed By: #### U AMICAO, UDRUG, UA ####[address] [place], [place] [address] UA Nitrite Negative Normal Negative [facility] ([place] Comment on above: Performed By: #### U AMICAO, UDRUG, UA ####[address] [place], [place] [address] UA pH 7.0 Normal 5.0 - 8.0 [facility] ([place]) Comment on above: Performed By: #### U AMICAO, UDRUG, UA ####[address] [place], [place] [address] UA Protein Trace Normal Negative [facility] ([place]) Comment on above: Performed By: #### U AMICAO, UDRUG, UA ####[address] [place], [place] [address] UA Spec Grav 1.025 Normal 1.015-1.025 [facility] ([place]) Comment on above: Performed By: #### U AMICAO, UDRUG, UA ####[address] [place], [place] [address] UA Specimen Type Clean Catch Normal [facility] ([place]) Comment on above: Performed By: #### U AMICAO, UDRUG, UA ####[address] [place], [place] [address] UA Urobilinogen 0.2 E.U./dL Normal 0.2-1.0 [facility] ([place]) Comment on above: Performed By: #### U AMICAO, UDRUG, UA ####[address] [place], [place] [address] Urobilinogen (U) [Mass/Vol] Negative Normal Negative [facility] ([place]) Comment on above: Performed By: #### U AMICAO, UDRUG, UA ####[address] [place] [address] UDRUGon 08-21-2023 Amphetamine (u) Negative Normal Negative [facility] ([place]) Comment on above: Performed By: #### U AMICAO, UDRUG, UA ####[address] [place], [place] [address] Barbiturate (u) Negative Normal Negative [facility] ([place]) Comment on above: Performed By: #### U AMICAO, UDRUG, UA ####[address] [place], [place] [address] Benzodiazepine (u) Negative Normal Negative [facility] ([place]) Comment on above: Performed By: #### U AMICAO, UDRUG, UA ####[address] [place], [place] [address] Cannabinoid (u) Positive Abnormal Negative [facility] ([place]) Comment on above: Performed By: #### U AMICAO, UDRUG, UA ####[address] [place], [place] [address] Cocaine Ql (U) Negative Normal Negative [facility] ([place]) Comment on above: Performed By: #### U AMICAO, UDRUG, UA ####[address] [place], [place] [address] Methadone Ql (U) Negative Normal Negative [facility] ([place]) Comment on above: Performed By: #### U AMICAO, UDRUG, UA ####[address] [place], [place] [address] Opiate (u) Negative Normal Negative [facility] ([place]) Comment on above: Performed By: #### U AMICAO, UDRUG, UA ####[address] [place], [place] [address] PCP (u) Negative Normal Negative [facility] ([place]) Comment on above: Performed By: #### U AMICAO, UDRUG, UA ####[address] [place], [place] [address] Urine Drugs screened: See Below Normal [facility] ([place]) Comment on above: Result Comment: This drug [...] ONLY. Performed By: #### U PORSHA ARROYO, ####[address] [place], [place] [address] CLARKOVaparna 03-12-2023 CN Office Visit (SWS ) DELON HAJI ([id number]) 1990 F Date Time Provider Department 03/12/23 [...] office visit today with the [facility] General Surgeons. Instructions After ABSCESS [...] 10 mi (more content not included)... Normal [facility] CNOVon 03-11-2023 CNOV Office Visit (UCWSTR ) JAZ HAJIBIJU Keating ([id number]) 1990 F Date Time Provider Department 03/11/23 11:45 AM DAVINA THOMAS [facility] During your visit today, we recorded [...] daily. (Patient not taking: Reported on 03/03/2019) Mkgaitmc-Mz-Acg-Fe-FA tab Take 1 tablet by mouth once [...] - CONSULT TO GENERAL SURGERY Davina Thomas APRN.INTERNATIONAL MARKETING EXECUTIVE Allergies As of Date: 03/11/2023 Noted Allergy Reaction TOMATO 04/02/2022 8 - GI Upset Date Reviewed: 03/11/2023 Reviewed by: Davina Thomas APRN.INTERNATIONAL MARKETING EXECUTIVE - Fully Assessed Reason for Visit: Derm Problem [33] Cmt: Cyst or abscess L buttocks x1 day Primary Visit Diagnosis:Cutaneous abscess of buttock [L02.31] Order(s):doxycycline monohydrate 100 mg tabletTake 1 tablet by mouth twice daily for 5 days.Disp: 10 tabletRfl: 0 CONSULT TO GENERAL SURGERY [9011] Order #: [id number]: 1 FUTURE Prescriptions as of 03/11/2023 - [...] by mo (more content not included)... Normal [facility] Progress Noteon 04-02-2022 Insurance Law Specialist Authentication Interface Message Text Maternal Medicine Consult [...] No Muscular Dystrophy No Cystic Fibrosis No [place]'s Chorea No Intellectual Disability/Autism No Metabolic Disorder [...] Negative. Skin: Negative. Neurological: Negative. Endo/Heme/Allergies: Negative. Psychiatric/Behaviora l: Negative. PHYSICAL EXAM: LMP 09/18/2021 Constitutional: General: [...] if target (more content not included)... Normal [facility] LABORATORYOrdered By: Alesha Harrison on [...] kg/m2 Alison Givens V, DO Work Phone: [facility] 10-05-2024 08:07-0400 Body temperature 97.9 [degF] Alison Givens V, DO Work Phone: [facility] 10-05-2024 08:07-0400 Body weight 101.33 kg Alison Givens V, DO Work Phone: [facility] 03-13-2025 08:07-0400 Diastolic blood pressure 61 mm[Hg] Alison Maturu V, DO Work Phone: [facility] 10-05-2024 08:07-0400 Heart rate 81 /min Alison Maturu V, DO Work Phone: [facility] 10-05-2024 08:07-0400 Systolic blood pressure 121 mm[Hg] Alison Maturu V, DO Work Phone: [facility] 03-18-2024 15:20-0400 Body temperature 98.78 [degF] DR JENA SWANSON MD [facility] 03-18-2024 15:20-0400 Diastolic Blood Pressure Non-Invasive 68 mm[Hg] DR JENA SWANSON MD [facility] 03-18-2024 15:20-0400 Heart rate 100 /min DR JENA SWANSON MD [facility] 03-18-2024 15:20-0400 Respiratory rate 18 /min DR JENA SWANSON MD [facility] 03-18-2024 15:20-0400 Systolic Blood Pressure Non-Invasive 112 mm[Hg] DR JENA SWANSON MD [facility] 02-25-2024 18:03-0400 Body temperature 97.34 [degF] ROQUE MEJÍA DO [facility] 02-25-2024 18:03-0400 Body weight 81 kg ROQUE MEJÍA DO [facility] 02-25-2024 18:03-0400 Diastolic Blood Pressure Non-Invasive 71 mm[Hg] ROQUE MEJÍA DO [facility] 02-25-2024 18:03-0400 Heart rate 105 /min ROQUE MEJÍA DO [facility] 02-25-2024 18:03-0400 Respiratory rate 16 /min ROQUE MEJÍA DO [facility] 02-25-2024 18:03-0400 Systolic Blood Pressure Non-Invasive 122 mm[Hg] ROQUE MEJÍA DO [facility] 11-14-2023 17:40-0400 Blood Pressure Cuff Size NORMA FANGT DO [facility] 11-14-2023 17:40-0400 Blood Pressure Location NROMA FANGT DO [facility] 11-14-2023 17:40-0400 Blood Pressure Method NORMA ECKERT D O [facility] 11-14-2023 17:40-0400 Body temperature 97.7 [degF] NORMA FANGT DO [facility] 11-14-2023 17:40-0400 Diastolic Blood Pressure Non-Invasive 76 mm[Hg] NORMA FANGT DO [facility] 11-14-2023 17:40-0400 Heart rate 88 /min NORMA FANGT DO [facility] 11-14-2023 17:40-0400 Respiratory rate 16 /min NORMA FANGT DO [facility] 11-14-2023 17:40-0400 Systolic Blood Pressure Non-Invasive 125 mm[Hg] NORMA PENDLETONMELT DO [facility] 11-12-2023 11:01-0400 Body temperature 98.01 [degF] Jaylyn BARNHART Work Phone: [facility] 11-12-2023 11:01-0400 Body weight 87.5 kg Krislyn Aberegg PA Work Phone: [facility] 11-12-2023 11:01-0400 Diastolic blood pressure 64 mm[Hg] Krislyn Aberegg PA Work Phone: [facility] 11-12-2023 11:01-0400 Heart rate 69 /min Krislyn Aberegg PA Work Phone: [facility] 11-12-2023 11:01-0400 Respiratory rate 16 /min Krislyn Aberegg PA Work Phone: [facility] 11-12-2023 11:01-0400 SaO2% (BldA) [Mass fraction] 98 % Krislyn Aberegg PA Work Phone: [facility] 11-12-2023 11:01-0400 Systolic blood pressure 128 mm[Hg] Krislyn Aberegg PA Work Phone: [facility] 10-13-2023 08:22-0400 Body height 175.3 cm Tonja Rojas SUPERVISOR [employer]-INTERNATIONAL MARKETING EXECUTIVE Work Phone: [facility] 10-13-2023 08:22-0400 Body mass index (BMI) [Ratio] 27.76 kg/m2 Crystal Rojas SUPERVISOR [employer]-INTERNATIONAL MARKETING EXECUTIVE Work Phone: [facility] 10-13-2023 08:22-0400 Body temperature 100 [degF] Crystal Rojas SUPERVISOR [employer]-INTERNATIONAL MARKETING EXECUTIVE Work Phone: [facility] 10-13-2023 08:22-0400 Body weight 85.28 kg Crystal Rojas SUPERVISOR [employer]-INTERNATIONAL MARKETING EXECUTIVE Work Phone: [facility] 10-13-2023 08:22-0400 Diastolic blood pressure 57 mm[Hg] Crystal Rojas SUPERVISOR [employer]-INTERNATIONAL MARKETING EXECUTIVE Work Phone: [facility] 10-13-2023 08:22-0400 Heart rate 94 /min Crystal Rojas SUPERVISOR [employer]-INTERNATIONAL MARKETING EXECUTIVE Work Phone: [facility] 10-13-2023 08:22-0400 Systolic blood pressure 122 mm[Hg] Crystal Rojas SUPERVISOR [employer]-INTERNATIONAL MARKETING EXECUTIVE Work Phone: [facility] 09-22-2023 11:09-0500 Body temperature 98.2 [degF] Meg Ortez SUPERVISOR [employer].INTERNATIONAL MARKETING EXECUTIVE Work Phone: [facility] 09-22-2023 11:09-0500 Body weight 88.45 kg Meg Ortez SUPERVISOR [employer].INTERNATIONAL MARKETING EXECUTIVE Work Phone: [facility] 09-22-2023 11:09-0500 Diastolic blood pressure 64 mm[Hg] Meg Ortez SUPERVISOR [employer].INTERNATIONAL MARKETING EXECUTIVE Work Phone: [facility] 09-22-2023 11:09-0500 Heart rate 88 /min Meg Ortez SUPERVISOR [employer].INTERNATIONAL MARKETING EXECUTIVE Work Phone: [facility] 09-22-2023 11:09-0500 Respiratory rate 16 /min Meg Ortez SUPERVISOR [employer].INTERNATIONAL MARKETING EXECUTIVE Work Phone: [facility] 09-22-2023 11:09-0500 SaO2% (BldA) [Mass fraction] 98 % Meg Ortez SUPERVISOR [employer].INTERNATIONAL MARKETING EXECUTIVE Work Phone: [facility] 09-22-2023 11:09-0500 Systolic blood pressure 110 mm[Hg] Meg Ortez SUPERVISOR [employer].INTERNATIONAL MARKETING EXECUTIVE Work Phone: [facility] 08-21-2023 18:33-0500 Heart rate 98 /min NIDAL CHOUJAA DO [facility] 08-21-2023 17:28-0500 Diastolic Blood Pressure Non-Invasive 60 mm[Hg] NIDAL CHOUJAA DO [facility] 08-21-2023 17:28-0500 Heart rate 83 /min NIDAL CHOUJAA DO [facility] 08-21-2023 17:28-0500 Mean blood pressure 73 mm[Hg] NIDAL CHOUJAA DO [facility] 08-21-2023 17:28-0500 Reason For Taking VItal Signs NIDAL CHOUJAA DO [facility] 08-21-2023 17:28-0500 Respiratory rate 16 /min NIDAL CHOUJAA DO [facility] 08-21-2023 17:28-0500 Systolic Blood Pressure Non-Invasive 98 mm[Hg] NIDAL CHOUJAA DO [facility] 08-21-2023 16:45-0500 Diastolic Blood Pressure Non-Invasive 57 mm[Hg] NIDAL CHOUJAA DO [facility] 08-21-2023 16:45-0500 Heart rate 85 /min NIDAL CHOUJAA DO [facility] 08-21-2023 16:45-0500 Respiratory rate 16 /min NIDAL CHOUJAA DO [facility] 08-21-2023 16:45-0500 Systolic Blood Pressure Non-Invasive 103 mm[Hg] NIDAL CHOUJAA DO [facility] 08-21-2023 14:50-0500 Diastolic Blood Pressure Non-Invasive 62 mm[Hg] NIDAL CHOUJAA DO [facility] 08-21-2023 14:50-0500 Mean blood pressure 73 mm[Hg] NIDAL CHOUJAA DO [facility] 08-21-2023 14:50-0500 Respiratory rate 16 /min NIDAL CHOUJAA DO [facility] 08-21-2023 14:50-0500 Systolic Blood Pressure Non-Invasive 96 mm[Hg] NIDAL CHOUJAA DO [facility] 08-21-2023 12:54-0500 Blood Pressure Location NIDJOVITA SEWELLUJAA DO [facility] 08-21-2023 12:54-0500 Body temperature 97.16 [degF] NIDAL CHOUJAA DO [facility] 03-12-2023 15:02-0400 Body height 175.3 cm Ginette [place] PA-C Work Phone: [facility] 03-12-2023 15:02-0400 Body temperature 98.4 [degF] Ginette Lisy PA-C Work Phone: [facility] 03-12-2023 15:02-0400 Body weight 83.28 kg Ginette Lisy PA-C Work Phone: [facility] 03-12-2023 15:02-0400 Diastolic blood pressure 62 mm[Hg] Ginette [place] PA-C Work Phone: [facility] 03-12-2023 15:02-0400 Heart rate 101 /min Ginette Lisy PA-C Work Phone: [facility] 03-12-2023 15:02-0400 SaO2% (BldA) [Mass fraction] 98 % Ginette Lisy PA-C Work Phone: [facility] 03-12-2023 15:02-0400 Systolic blood pressure 110 mm[Hg] Ginette Lisy PA-C Work Phone: [facility] 03-11-2023 11:48-0400 Body temperature 98.6 [degF] Davina Thomas APRN.INTERNATIONAL MARKETING EXECUTIVE Work Phone: [facility] 03-11-2023 11:48-0400 Body weight 83.73 kg Daivna Thomas APRN.INTERNATIONAL MARKETING EXECUTIVE Work Phone: [facility] 03-11-2023 11:48-0400 Diastolic blood pressure 76 mm[Hg] Davina Thomas SUPERVISOR [employer].INTERNATIONAL MARKETING EXECUTIVE Work Phone: [facility] 03-11-2023 11:48-0400 Heart rate 110 /min Davina Thomas SUPERVISOR [employer].INTERNATIONAL MARKETING EXECUTIVE Work Phone: [facility] 03-11-2023 11:48-0400 Respiratory rate 18 /min Davina Thomas SUPERVISOR [employer].INTERNATIONAL MARKETING EXECUTIVE Work Phone: [facility] 03-11-2023 11:48-0400 SaO2% (BldA) [Mass fraction] 99 % Davina Thomas SUPERVISOR [employer].INTERNATIONAL MARKETING EXECUTIVE Work Phone: [facility] 03-11-2023 11:48-0400 Systolic blood pressure 113 mm[Hg] Davina Thomas SUPERVISOR [employer].INTERNATIONAL MARKETING EXECUTIVE Work Phone: [facility] 01-16-2022 07:47-0400 Diastolic blood pressure 64 mm[Hg] Nery Ziegler MBBS Work Phone: [facility] 01-16-2022 07:47-0400 Heart rate 89 /min Nery Ziegler MBBS Work Phone: [facility] 01-16-2022 07:47-0400 Systolic blood pressure 118 mm[Hg] Nery Ziegler MBBS Work Phone: [facility] 01-16-2022 07:36-0400 Body height 172.7 cm Nery Ziegler MBBS Work Phone: [facility] 10-21-2021 16:21-0400 Body temperature 98.42 [degF] NORMA FANGT DO [facility] 10-21-2021 16:21-0400 Diastolic blood pressure 84 mm[Hg] NORMA FANGT DO [facility] 10-21-2021 16:21-0400 Heart rate 100 /min NORMA ECKERT DO [facility] 10-21-2021 16:21-0400 Respiratory rate 18 /min NORMA ECKERT DO [facility] 10-21-2021 16:21-0400 Systolic blood pressure 126 mm[Hg] NORMA ECKERT DO [facility] Encounters Encounter Date Encounter Type Care Provider Facility Start: 05-02-2025 End: 05-02-2025 Emergency department patient visit [facility] Facility:[facility] Start: 02-18-2025 End: 02-18-2025 Emergency department patient visit [facility] Facility:[facility] Start: 01-14-2025 End: 01-14-2025 Emergency department patient visit No Primary Care Physician Facility:[facility] Start: 01-10-2025 End: 01-10-2025 Emergency department patient visit [facility] Facility:[facility] Start: 01-02-2025 ambulatory Alisonrukhsana Givens Facility: [facility] Start: 01-01-2025 End: 01-01-2025 Emergency department patient visit Edvin FaulknerYelitza Facility:[facility] Start: 11-30-2024 End: 11-30-2024 Emergency department patient visit No Primary Care Physician Facility:[facility] Start: 11-10-2024 ambulatory No Primary Car e Physician Facility:[facility] Start: 11-10-2024 End: 11-12-2024 Evaluation and management of inpatient No Primary Care Physician Facility:[facility] Start: 10-05-2024 End: 10-05-2024 Office outpatient visit 40 minutes Alison Givens DO Work Phone: [facility] Comment on above: Local-rel symptc epi w cmplx prt seiz,not ntrct,w/o stat epi (Primary Dx) Start: 03-13-2025 ambulatory SELF SELF Facility:[facility] Start: 03-18-2024 End: 03-18-2024 Emergency department patient visit DR JENA SWANSON MD [facility] Start: 02-25-2024 End: 02-25-2024 Emergency department patient visit ROQUE MEJÍA DO [facility] Start: 01-06-2024 End: 01-06-2024 Emergency department patient visit DYLON COPE [facility] Start: 12-08-2023 Orders Only Becky lynne PA-C Work Phone: Orthopaedics Comment on above: Closed fracture of t uft of distal phalanx of finger (Primary Dx) Start: 11-14-2023 End: 11-14-2023 Emergency department patient visit NORMA ECKERT DO [facility] Start: 11-12-2023 End: 11-12-2023 ambulatory GINETTE LISY Facility:[facility] Start: 11-12-2023 End: 11-12-2023 Patient encounter procedure Jaylyn BARNHART Work Phone: [facility] Comment on above: Procedure not jennifer d out (Primary Dx) Start: 10-13-2023 End: 10-13-2023 Office outpatient visit 25 minutes Tonja Xie SUPERVISOR [employer]-INTERNATIONAL MARKETING EXECUTIVE Work Phone: Neurology [facility] Comment on above: 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, unspecified epilepsy type (Primary Dx) Start: 09-27-2023 End: 09-27-2023 ambulatory MEG ORTEZ Facility:[facility] Start: 09-27-2023 End: 09-27-2023 Patient encounter procedure Becky Flor PA-C Work Phone: Orthopaedics Comment on above: Closed fracture of t uft of distal phalanx of finger (Primary Dx); Pain of finger of left hand Start: 09-24-2023 End: 09-24-2023 Patient encounter procedure Viet Isaias DO Work Phone: [facility] Comment on above: Injury of finger of left hand, initial encounter; Closed fracture of tuft of distal phalanx of finger Start: 09-24-2023 ambulatory VIET ESPARZA Facility:[facility] Start: 09-22-2023 End: 09-22-2023 Subsequent hospital visit by physician Xr [facility] [place] Work Phone: Radiology Comment on above: Injury of finger of left hand, initial encounter [S69.92XA] Start: 09-22-2023 End: 09-22-2023 ambulatory MEG ORTEZ Facility:[facility] Start: 09-22-2023 End: 09-22-2023 Patient encounter procedure Meg Ortez SUPERVISOR [employer].INTERNATIONAL MARKETING EXECUTIVE Work Phone: [facility] Comment on above: Injury of finger of left hand, initial encounter (Primary Dx); Closed fracture of tuft of distal phalanx of finger; Subungual hematoma of finger, initial encounter Start: 08-21-2023 End: 08-21-2023 Emergency department patient visit JACOB MARTÍNEZ DO [facility] Start: 03-12-2023 End: 03-12-2023 ambulatory GINETTE WASSERMAN Facility:[facility] Start: 03-12-2023 End: 03-12-2023 Patient encounter procedure Ginette Wasserman PA-C Work Phone: General Surgery Comment on above: Abscess of left thig h (Primary Dx) Start: 03-11-2023 End: 03-11-2023 ambulatory GINETTE WASSERMAN Facility:[facility] Start: 03-11-2023 End: 03-11-2023 Patient encounter procedure Davina Thomas SUPERVISOR [employer].INTERNATIONAL MARKETING EXECUTIVE Work Phone: [facility] Comment on above: Cutaneous abscess of buttock (Primary Dx) Start: 05-29-2022 Telephone encounter [facility] Comment on above: Insurance Start: 01-16-2022 End: 01-16-2022 Subsequent hospital visit by physician Nery SALCEDO Work Phone: [facility] Comment on above: Arrived Start: 10-21-2021 End: 10-21-2021 Emergency department patient visit NORMA ECKERT DO [facility] Start: 01-14-2017 End: 05-19-2018 Patient requested procedure Becky Flor PA-C Work Phone: [facility] Procedures Date Procedure Procedure Detail Performing Clinician Start: 09-22-2023 Radex fingr minimum 2 views Meg Ortez APRN.INTERNATIONAL MARKETING EXECUTIVE Work Phone: Plan of Treatment Date Care Activity Detail Author Start: 07-24-2032 Urine microalbumin profile DTaP,Tdap,Td Vaccine (11 - Td or Tdap) [facility] Start: 10-17-2028 Tetanus vaccination TETANUS [facility] Start: 10-17-2028 Urine microalbumin profile DTAP,TDAP,TD (4 - Td or Tdap) [facility] Start: 02-15-2025 End: 02-15-2025 Patient encounter procedure 02/15/2025 8:15 AM EDT Office Visit [facility]rology [facility] [address] [place] [address] Alison Thakkar DO [address] [place] [address] [facility]rology [facility] Start: 03-26-2024 Covid-19 Vaccine ( season) Covid-19 Vaccine ( season) [facility] Start: 03-26-2024 COVID-19 VACCINE ( season) COVID-19 VACCINE ( season) [facility] Start: 03-26-2024 Influenza vaccination O [facility] Start: 12-13-2023 End: 05-20-2024 Patient encounter procedure 12/13/2023 10:30 AM EDT Office Visit Orthopaedics [address] [place] [address] Becky Flor PA-C [address] [place] [address] Injury of finger of left hand, initial encounter [S69.92XA]; Closed fracture of tuft of distal phalanx of finger [S62.639A] follow up per web request Orthopaedics Comment on above: Injury of finger of left hand, initial encounter [S69.92XA]; Closed fracture of tuft of distal phalanx of finger [S62.639A] follow up per web request Start: 07-26-2023 Behavioral Health Screening Behavioral Health Screening [facility] Start: 07-26-2023 Depression Assessment Depression Ass [facility] Start: 05-03-2023 PAP TESTING PAP TESTING [facility] Start: 05-03-2023 Screening for malign ant neoplasm of cervix Pap Testing [facility] Start: 03-26-2023 COVID-19 VACCINE ( season) COVID-19 VACCINE ( season) [facility] Start: 03-26-2023 Influenza vaccination C [facility] Start: 07-26-2022 DEPRESSION ASSESSMENT DEPRESSION ASS [facility] Start: 03-26-2022 Influenza vaccination O [facility] Start: 01-20-2022 End: 01-20-2022 Telemedicine consultation with patient 01/20/2022 Telemedicine Neurology Nery Ziegler MBBS [address] [place] [address] [facility] Start: 05-03-2021 Screening for malign ant neoplasm of cervix Cervical Cancer Screening [facility] Start: 2020 HPV TESTING HPV TESTING [facility] Start: 2020 Screening for malign ant neoplasm of cervix HPV Testing [facility] Start: 2011 Screening for malign ant neoplasm of cervix CERVICAL CANCER SCREENING DISCUSSION [facility] Start: 2009 Hepatitis B vaccination HEP B VACCINE (1 of 3 - 19+ 3-dose series) [facility] Start: 2009 Hepatitis B Vaccine (1 of 3 - 19+ 3-dose series) Hepatitis B Vaccine (1 of 3 - 19+ 3-dose series) [facility] Start: 2009 PNEUMOCOCCAL VACCINE SERIES (1 of 2 - PCV) PNEUMOCOCCAL VACCINE SERIES (1 of 2 - PCV) [facility] Start: 2009 Third diphtheria, tetanus and acellular pertussis (DTaP) vaccination TDAP (ADULT) [facility] Start: 2008 Anxiety Screening Anxiety Screening [facility] Start: 2008 Depression Screening Depression Scre ening [facility] Start: 2008 Tetanus vaccination TETANUS [facility] Start: 01-20-2008 HPV Vaccine (3 - 3-d ose series) HPV Vaccine (3 - 3-dose series) [facility] Start: 2005 HIV screening HIV SCREENING DISCUSSION [facility] Start: 1996 PNEUMOCOCCAL (1 - PCV) PNEUMOCOCCAL (1 - PCV) [facility] Start: 1996 Pneumococcal vaccination Pneumococcal Vaccine (1 of 2 - PCV) [facility] Start: 1996 PNEUMOCOCCAL VACCINE SERIES (1 - PCV) PNEUMOCOCCAL VACCINE SERIES (1 - PCV) [facility] Start: 1996 PNEUMOCOCCAL VACCINE SERIES (1 of 2 - PCV) PNEUMOCOCCAL VACCINE SERIES (1 of 2 - PCV) [facility] Start: 01-20-1991 COVID-19 VACCINE (#1) COVID-19 VACCI NE (#1) [facility] Start: 1990 HEPATITIS B (1 of 3 - 3-dose series) HEPATITIS B (1 of 3 - 3-dose series) [facility] Start: 1990 Hepatitis B Vaccine (1 of 3 - 3-dose series) Hepatitis B Vaccine (1 of 3 - 3-dose series) [facility] Start: 1990 Hepatitis C antibody , confirmatory test HEPATITIS C VIRUS SCREENING [facility] Start: 1990 Hepatitis C screening HEPATITI S C VIRUS SCREENING [facility] End: 01-16-2022 MR Brain WO contrast [facility] Comment on above: 1 Occurrences starti ng 01/16/2022 until 01/16/2022 End: 01-06-2025 XR Finger - left AP and Lateral and oblique XR DIGIT GENERAL 3V FRONTAL/LAT/OBL LEFT Radiology Routine Closed fracture of tuft of distal phalanx of finger 1 Occurrences starting 12/08/2023 until 01/06/2025 [facility] Work Phone: Comment on above: 1 Occurrences starti ng 12/08/2023 until 01/06/2025 [facility] Immunizations Immunization Date Immunization Notes Care Provider Opal gonzalez 10-17-2018 tetanus toxoid, redu windy diphtheria toxoid, and acellular pertussis vaccine, adsorbed Davina William SUPERVISOR [employer].INTERNATIONAL MARKETING EXECUTIVE Work Phone: [facility] 05-02-2015 tetanus toxoid, redu windy diphtheria toxoid, and acellular pertussis vaccine, adsorbed Davina William SUPERVISOR [employer].INTERNATIONAL MARKETING EXECUTIVE Work Phone: [facility] 09-23-2014 tetanus toxoid, redu windy diphtheria toxoid, and acellular pertussis vaccine, adsorbed Davina William SUPERVISOR [employer].INTERNATIONAL MARKETING EXECUTIVE Work Phone: [facility] 09-10-2014 influenza, injectabl e, quadrivalent, preservative free Davina William SUPERVISOR [employer].INTERNATIONAL MARKETING EXECUTIVE Work Phone: [facility] 09-10-2014 influenza virus vaccine, unspecified formulation Nery SALCEDO Work Phone: [facility] Payers Date Payer Category Payer Self-pay 2023 Unknown [id number] 2023 Unknown PENDING 2022 Medicaid [facility] MEDICAID [id number] 2022-Present [phone] [address] [place] [address] Medicaid [id number] 2022 Medicaid [id number] 2021 Unknown [id number] 1990 Unknown [id number] 1990 Unknown [id number] 1990 Unknown [id number] 1990 Unknown [id number] 1990 Unknown [id number] Unknown [id number] Unknown [id number] Unknown [id number] Unknown [id number] Unknown [id number] Unknown [id number] Unknown [id number] Unknown [id number] Unknown [id number] Unknown [id number] Unknown [id number] Social History Date Type Detail Facility Start: 04-09-2021 End: 03-18-2024 Tobacco smoking status Heavy tobacco smoker (finding) [facility] Sex Assigned At Female [facility] Start: 12-23-2021 End: 10-13-2023 Tobacco smoking status NHIS Smokes tobacco daily [facility] History of tobacco use Cigarette Smoker [facility] Start: 12-23-2021 End: 10-05-2024 Cigarettes smoked current (pack per day) - Reported 0.5 [facility] Start: 12-23-2021 End: 10-13-2023 Tobacco use and exposure Smokeless tobacco non-user [facility] Start: 01-16-2022 End: 02-24-2022 Alcohol intake Current drinker of alcohol (finding) [facility] Start: 12-23-2021 History SDOH Alcohol Comment occaisionaly [facility] Start: 10-02-2021 [facility] Start: 1990 Sex Assigned At Not on file [facility] Start: 03-11-2023 End: 09-22-2023 Alcohol intake Current non-drinker of alcohol (finding) [facility] Start: 03-11-2023 End: 10-05-2024 Tobacco use panel [facility] National Score (1-10 0), lower number is lower risk Not on file [facility] Start: 03-11-2023 Tobacco Comment 4-6 cigarettes a day [facility] Start: 10-13-2023 End: 10-05-2024 Alcoholic beverage intake Ex-drinker (finding) [facility] Start: 09-20-2020 Sex Female (finding) [facility] Start: 09-28-2024 Gender identity Identifies as female gender (finding) [facility] Start: 09-28-2024 Sexual orientation Heterosexual (fin juan luis) [facility] Functional Status Date Assessment Result Facility 03-18-2024 Functional Status ID band on, Call device within reach, Bed in low position, Wheels locked, Bedside Cart Locked, Visitor at bedside, Safety level maintained [facility] 02-25-2024 Functional Status Standard Safet y ID band on, Call device within reach, Bed in low position, Wheels locked, Visitor at bedside [facility] 11-14-2023 Functional Status Ambulation in Conrad, Ambulation in Room [facility] 08-21-2023 Functional Status Independent [facility] 08-21-2023 Functional Status Standard Safet y Safety level maintained [facility] 08-21-2023 Functional Status Awake [facility] 10-21-2021 Functional Status [facility] Mental Status Date Assessment Result Facility 03-18-2024 Mental Status Oriented x 4 [facility] 02-25-2024 Mental Status Orientation Oriented x 4 [facility] 11-14-2023 Mental Status Orientation Oriented x 4 [facility] 08-21-2023 Mental Status Orientation Oriented x 4 [facility] 08-21-2023 Mental Status [facility] 10-21-2021 Mental Status [facility] Clinical Notes 09-19-2018 to 10-05-2024 Alison Hernandez DO - 10/05/2024 8:15 AM EDTPatient InstructionsJaylyn Charlton PA - 11/12/2023 11:09 AM EDTCFLORIN Pedroza - 10/13/2023 8:20 AM EDTPatient Instructions Note Date & Type Note Facility 10-05-2024 History of Present illness Narrative [facility] Comprehensive Epilepsy Clinic Reason for Visit: This is a 34 year old female that presents to the Comprehensive Epilepsy Center at [facility] for a follow-up on the care [...] overall good. She is currently working at [employer] in [place]. She does have difficulty with her short [...] of questions or concerns. Alison Givens DO Child Care Education Coordinator Department of Neurology, Epilepsy Division [facility] I spent approximately 49 minutes reviewing the chart prior to the appointment, in face to face counseling with the patient, and with documentation after the visit. documented in this encounter [facility] 10-05-2024 Instructions Alison Hernandez DO - [...] Neuromodulation: Vagus nerve stimulation (VNS) information: https://www.epilepsy.com/treatmen t/devices/ebyun-hvvax-gnldlonkjaw -therapy Deep brain stimulation (DBS) information: https://www.epilepsy.com/treatmen t/devices/izkj-uyeih-euleijnfyka 4. Schedule your appointment with the epilepsy [...] you can call the Neurology clinic at [phone]. If you have access through [facility] [employer], you can contact me through that system as well. documented in this encounter [facility] 03-18-2024 Hospital Discharge instructions Patient Education [...] nail. This may need to be drained. [phone] [employer]. [address] [place] [address], [place] [address]. All rights reserved. This information is not intended as a substitute for professional medical care. Always follow your healthcare professional's instructions. Follow Up Care 03/18/2024 15:19:27 With:LEIGHTON LEIGH Address: [address] [place] [phone] Business (1) When:5-7 days only if needed [facility] 03-18-2024 Note Discharge Instructions Thank you for allowing [facility] to assist you with your healthcare needs. The following is important discharge information regarding your hospital visit. Diagnosis from Today's Visit Thumb contusion What to Do Next Instructions from Your Care Team No qualifying data available. Post Acute Orders No qualifying data available. You Need to Schedule the Following Appointments Follow Up with LEIGHTON LEIGH When:Within 5-7 days, only if needed Where:[address] [place] [phone] Business (1) Allergies NKA Medications Please ask [...] nail. This may need to be drained. 0212-6623 [employer]. [address] [place] [address]. All rights reserved. This information is not intended as a substitute for professional medical care. Always follow your healthcare professional's instructions. Additional Information VACCINATE! IT SAVES LIVES! Members of the community who have not yet received the COVID-19 vaccine and would like to receive it can visit one of [facility] vaccine clinics. There are many vaccine clinic locations within the [facility]. For locations and available times, please visit www.gettheshot.coronavirus.[place].g ov/. It is important to note that some COVID mobile vaccine clinics are held outdoors and may be canceled in rainy or stormy conditions. To learn more about pediatric vaccinations (ages 5-11), we invite you to visit the [facility] webpage. https://www.akronfroolys.org/pa ges/9531-Hyjdc-Kwolmjimncd-Freque pgff-Lpeex-Rzvxltptd.html To learn more about the COVID-19 vaccine, we invite you to visit the CDC website for a list of frequently asked questions. https://www.cdc.gov/coronavirus/2 019-ncov/vaccines/faq.html [facility] Patient Portal Access Instructions: Stay connected with your healthcare team and access your personal medical information anytime with the [facility] Patient Portal. If you would like a full copy of your medical records please contact the [facility] Medical Records Department Wednesday through Wednesday between 8a.m. and 4:30p.m. Please follow the directions below to access the portal: 1.Access the email account you provided upon registration to the [facility].2.Look for an invitation email from [facility].3.Open the email and access the invitation link: Accept Invitation to [facility]4.Fill in the required noguera to create your account. Sign into [email or web address].[email or web address] with your username and password that you [...] you will allow to register on the [facility] Patient Portal for access to your information. You can also access the [facility] Patient Portal on the [employer] william. Simply click on Health Records under Health Data and then click on the [employer] logo. HOW TO SAFELY DISPOSE OF PRESCRIPTION [...] Call your local pharmacy or go to http://bit.Ultralife/8R5Ey9l to find one close to you.3.Make use of household items: Use cat litter or old coffee grounds to dispose medications if other options are not available. Mix your drugs with these household products, seal them in an airtight container and throw it into the garbage. Call [facility]: [phone] to be sure your drugs can be [...] aware that I should contact my doctor. Patient/Campus Executive Director Signature: Date/Time: Relationship to Patient: ____ Witness Name/Signature: Date/Time: [facility] 03-18-2024 Note ORIGINAL EXAMINATION: THREE XRAY [...] 03/18/2024 4:09:39 PM Ordering Provider: JENA SWANSON [facility] 02-25-2024 Hospital Discharge instructions Patient Education [...] the nail as it heals and regrows. 2965-4518 [employer]. [address] [place] [address]. All rights reserved. This information is not intended as a substitute for professional medical care. Always follow your healthcare professional's instructions. Follow Up Care 02/25/2024 18:03:16 With:LISSA XIE DO Address: [address] [place] [address] [phone] When:2-4 days With:Follow up with primary care provider Address:Unknown When:2-4 days [facility] 02-25-2024 Emergency department Discharge summary Discharge Instructions Thank you for allowing [facility] to assist you with your healthcare needs. [...] with LISSA XIE DO When:Within 2-4 days Where:[address] [place] [address] [phone] Follow Up with Follow up with primary [...] the nail as it heals and regrows. 8154-1184 [employer]. [address] [place] [address], [place] [address]. All rights reserved. This information is not intended as a substitute for professional medical care. Always follow your healthcare professional's instructions. Additional Information VACCINATE! IT SAVES LIVES! Members of the community who have not yet received the COVID-19 vaccine and would like to receive it can visit one of [facility] vaccine clinics. There are many vaccine clinic locations within the [facility]. For locations and available times, please visit www.gettheshot.coronavirus.[place].g ov/. It is important to note that some COVID mobile vaccine clinics are held outdoors and may be canceled in rainy or stormy conditions. To learn more about pediatric vaccinations (ages 5-11), we invite you to visit the [facility] webpage. https://www.Home Innss.org/pa ges/0707-Zqdva-Esdxjoptfrb-Freque utwk-Xgtjd-Gnlljxtgk.html To learn more about the COVID-19 vaccine, we invite you to visit the CDC website for a list of frequently asked questions. https://www.cdc.gov/coronavirus/2 019-ncov/vaccines/faq.html [facility] Patient Portal Access Instructions: Stay connected with your healthcare team and access your personal medical information anytime with the [facility] Patient Portal. If you would like a full copy of your medical records please contact the [facility] Medical Records Department Wednesday through Wednesday between 8a.m. and 4:30p.m. Please follow the directions below to access the portal: 1.Access the email account you provided upon registration to the hospital.2.Look for an invitation email from [facility].3.Open the email and access the invitation link: Accept Invitation to [facility].Fill in the required noguera to create your account. Sign into [email or web address].[email or web address] with your username and password that you [...] you will allow to register on the [facility] Patient Portal for access to your information. You can also access the [facility] Patient Portal on the [employer]. Simply click on Health Records under Health Data and then click on the [employer] logo. HOW TO SAFELY DISPOSE OF PRESCRIPTION [...] Call your local pharmacy or go to http://HipChat.Ultralife/4W4Km5n to find one close to you.3.Make use of household items: Use cat litter or old coffee grounds to dispose medications if other options are not available. Mix your drugs with these household products, seal them in an airtight container and throw it into the garbage. Call [facility]: [phone] to be sure your drugs can be [...] aware that I should contact my doctor. Patient/Campus Executive Director Signature: Date/Time: Relationship to Patient: ____ Witness Name/Signature: Date/Time: [facility] 02-25-2024 Note ORIGINAL EXAMINATION: THREE XRAY [...] 02/25/2024 6:46:27 PM Ordering Provider: CARMEN BROWN [facility] 11-14-2023 Hospital Discharge instructions Patient Education [...] Boil returns when you are at home 9150-7110 [employer]. [address] [place] [address]. All rights reserved. This information is not intended as a substitute for professional medical care. Always follow your healthcare professional's instructions. Follow Up Care 11/14/2023 17:11:01 With:Call Physician Referral Address:Unknown When:2-4 days [facility] Sanchez 11-14-2023 Note Discharge Instructions Thank you for allowing [facility] to assist you with your healthcare needs. [...] When Why Instructions Last Dose New acetaminophen-hydrocodone ([place]field 325- 5 mg oral tablet) 1 tab(s) [...] Boil returns when you are at home 7863-0485 [employer]. [address] [place] [address], [place] [address]. All rights reserved. This information is not intended as a substitute for professional medical care. Always follow your healthcare professional's instructions. Additional Information VACCINATE! IT SAVES LIVES! Members of the community who have not yet received the COVID-19 vaccine and would like to receive it can visit one of [facility] vaccine clinics. There are many vaccine clinic locations within the [facility]. For locations and available times, please visit www.gettheshot.coronavirus.[place].g ov/. It is important to note that some COVID mobile vaccine clinics are held outdoors and may be canceled in rainy or stormy conditions. To learn more about pediatric vaccinations (ages 5-11), we invite you to visit the [facility] webpage. https://www.akronfroolys.org/pa ges/4112-Piqmm-Fenxswhrlym-Freque fgcb-Gujiq-Rkghjkhyy.html To learn more about the COVID-19 vaccine, we invite you to visit the CDC website for a list of frequently asked questions. https://www.cdc.gov/coronavirus/2 019-ncov/vaccines/faq.html [facility] Patient Portal Access Instructions: Stay connected with your healthcare team and access your personal medical information anytime with the [facility] Patient Portal. If you would like a full copy of your medical records please contact the [facility] Medical Records Department Wednesday through Wednesday between 8a.m. and 4:30p.m. Please follow the directions below to access the portal: 1.Access the email account you provided upon [facility] to [facility].2.Look for an invitation email from [facility].3.Open the email and access the invitation link: Accept Invitation to [facility].Fill in the required noguera to create your account. Sign into www.[employer] with your username and password that you [...] you will allow to register on the [facility] Patient Portal for access to your information. You can also access the [facility] Patient Portal on the [employer]. Simply click on Health Records under Health Data and then click on the [employer] logo. HOW TO SAFELY DISPOSE OF PRESCRIPTION [...] Call your local pharmacy or go to http://HipChat.Ultralife/4B1Gq9x to find one close to you.3.Make use of household items: Use cat litter or old coffee grounds to dispose medications if other options are not available. Mix your drugs with these household products, seal them in an airtight container and throw it into the garbage. Call [facility]: [phone] to be sure your drugs can be [...] aware that I should contact my doctor. Patient/Campus Executive Director Signature: Date/Time: Relationship to Patient: ____ Witness Name/Signature: Date/Time: [facility] [place] 11-12-2023 Note HNO ID: [id number] Author: JAYLYN CHARLTON [place] Service: ? Author Type: Physician Turner Machine Operator Type: Progress Notes Filed: 11/12/2023 11:14 Note [...] to this plan. She will go to [facility]. [facility] 11-12-2023 History of Present illness Narrative 33-year-old [...] to this plan. She will go to [facility]. documented in this encounter [facility] 10-13-2023 History of Present illness Narrative Images from the original note were not included. Delon Haji was seen in the [facility] at [facility] on 10/13/2023. 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 Yes If you have tried 2 or 3 anti-seizure medications and your seizures are still not controlled, are you interested in learning about surgical options for your epilepsy that we can offer at the [facility]? No PHQ9 Depression Screening: No data [...] tremor: none noted Reflexes: not tested Coordination: Vwfqkd-kk-cbfl intact bilaterally. Sensation: not tested Gait: Normal [...] Ziegler. Carmen Chu MD Neurology, PGY-2 Pager #[phone] Attending Physician Note - Procedure I discussed the indications for this procedure with the resident. I have reviewed and confirm the procedure report as documented in the resident note. MATIAS [place] Child Care Education Coordinator Neurology, Epilepsy Division [facility] Neuroimaging: BRAIN MRI WITHOUT CONTRAST 01/16/2022: 1. [...] year with her employer. Encouraged use of [employer] to send messages to provider as needed for questions and concerns or can call our clinic @ [phone]. She will return in 3-6 months with epilepsy attending (Dr Givens or Dr Durand) or sooner if clinically indicated. Signed, Tonja SILVA, SUPERVISOR PORCELAIN DEPARTMENT-INTERNATIONAL MARKETING EXECUTIVE [facility] Department of Neurology - Epilepsy Division [address] [place] [address] - 7th floor [place] [address] Pager: [phone] Time to complete visit: I spent approximately 38 minutes reviewing the chart prior to the appointment, in face to face counseling with the patient, and with documentation after the visit. Note to patient: The 21st Century Cures Act makes medical notes like these available to patients in the interest of transparency. However, be advised this is a medical document. It is intended as elkh-un-nkrb communication. It is written in medical language and may contain abbreviations or verbiage that are unfamiliar. It may appear blunt or direct. Medical documents are intended to carry relevant information, facts as evident, and the clinical opinion of the practitioner. documented in this encounter [facility] 10-13-2023 Instructions FLORIN Cottrell - 10/13/2023 8:20 AM EDT Images from the original note were not included. Umoove CBD Oil, CBD Gummies and Cream Official Site (Strobe) https://www.Strobe/ We discussed Vimpat as a second medication [...] persist or become intolerable, please call the [facility] Neurology Clinic at [phone]. If you develop a rash while taking [...] after regular office hours, a neurologist is secondary connector armature for urgent issues. Call the neurology office number ([phone]) to reach the neurologist secondary connector armature if you are continuing to experience many more seizures than usual despite use of your rescue medications. Please try to remember that the neurologist secondary connector armature may not have access to your complete medical record and may not be as familiar with your history. If you have access through [employer], you can contact us through that system as well. If you have documents that need completed or sent to our clinic, please have them faxed to [phone]. It is always best to call during [...] the refill is ready for you to picker / packer. Seizure First Aid Training Can Be Found Here (it's free!): https://learn.epilepsy.com/course s/xieldbm-ejxci-ked-cert-ondemand documented in this encounter [facility] 09-27-2023 Note HNO ID: [id number] Author: BECKY FLOR PA-C Service: ? Author Type: Physician Turner Machine Operator Type: Progress Notes Filed: 10/05/2023 09:08 Note Text: Becky Flor PA-C Department of Orthopaedics Orthopaedics [address] [facility] [address] Dept: [phone] Dept September 27, 2023 CHIEF COMPLAINT: New [...] the most painful for her. This is [facility]. ASSESSMENT: S62.635Q Closed fracture of tuft of distal phalanx [...] tuft of the LEFT 3rd distal phalanx. Retail Shift Manager: PSCB Transcribe Date/Time: Sep 22 2023 11:32A [...] daily. (Patient not taking: Reported on 03/03/2019) Mlnqcucf-Sd-Mxe-Fe-FA tab (more content not included)... [facility] 09-27-2023 History of Present illness Narrative Becky Flor PA-C Department of Orthopaedics Orthopaedics [address] [facility] [address] Dept: [phone] Dept September 27, 2023 CHIEF COMPLAINT: New [...] the most painful for her. This is [facility]. ASSESSMENT: No diagnosis found. PLAN: She has [...] tuft of the LEFT 3rd distal phalanx. Retail Shift Manager: DARREN Transcribe Date/Time: Sep 22 2023 11:32A [...] daily. (Patient not taking: Reported on 03/03/2019) Kaygrxru-Vi-Ifk-Fe-FA tab Take 1 tablet by mouth once [...] anxiety) This note was partially generated using [employer] voice recognition system, and there may be [...] home for pain. documented in this encounter [facility] 09-27-2023 Note HNO ID: [id number] Author: GIULIANA BIRD RN Service: ? Author [...] taking anything else at home for pain. [facility] 09-27-2023 Note HNO ID: [id number] Author: VIET ESPARZA DO Service: ? Author Type: Physician Type: Progress Notes Filed: 09/27/2023 08:56 Note Text: opened in error no charge, visit rescheduled. [facility] 09-27-2023 History of Present illness Narrative opened in error no charge, visit rescheduled. documented in this encounter [facility] 09-27-2023 Instructions Viet Esparza V, DO - 09/27/2023 8:56 AM EST opened in error- documented in this encounter [facility] 09-22-2023 Instructions Meg Ortez APRN.CNP [...] when lying down. documented in this encounter [facility] 09-22-2023 History of Present illness [...] PATIENT PRESENTS WITH AN IMPLANTABLE OR ATTACHED PLATE FORMER: No RADIOLOGY DEPARTMENT: General X-ray: Exam(s) Completed: Upper Extremity X-Ray(s): Fingers/Thumb, left PERIPHERAL IV DATA: Not applicable SIGNED BY: RT Jimmy(Berna) September 22, 2023 11:23 AM documented in this encounter [facility] 09-22-2023 Note HNO ID: [id number] Author: CRISTINA MEJIAS RT(R) Service: Radiology Author [...] PATIENT PRESENTS WITH AN IMPLANTABLE OR ATTACHED PLATE FORMER: No RADIOLOGY DEPARTMENT: General X-ray: Exam(s) Completed: Upper Extremity X-Ray(s): Fingers/Thumb, left PERIPHERAL IV DATA: Not applicable SIGNED BY: RT Jimmy(R) September 22, 2023 11:23 AM [facility] 09-22-2023 Note HNO ID: [id number] Author: MEG ORTEZ APRN.INTERNATIONAL MARKETING EXECUTIVE Service: ? Author Type: Nurse Practitioner Type: Progress Notes Filed: 09/22/2023 12:02 Note Text: This note was created using [employer]current Inc[employer]. Subjective Delon Haji is a 33 year [...] history is provided by the patient. No educational interpreter was used. Musculoskeletal Problem This is a [...] daily. (Patient not taking: Reported on 03/03/2019) Mdnmenkh-Qj-Lnd-Fe-FA tab Take 1 tablet by mouth once [...] ear normal. Left (more content not included)... [facility] 09-22-2023 History of Present illness Narrative This note was created using Dental [employer]. Subjective Delon Haji is a 33 year [...] history is provided by the patient. No educational interpreter was used. Musculoskeletal Problem This is a [...] daily. (Patient not taking: Reported on 03/03/2019) Yjziazyb-Iy-Ntu-Fe-FA tab Take 1 tablet by mouth once [...] RX Keflex F/U with hand Meg Ortez APRN.INTERNATIONAL MARKETING EXECUTIVE documented in this encounter [facility] 08-21-2023 Hospital Discharge instructions Patient [...] has sustained an injury during the seizure. 3926-9480 [employer]. [address] [place] [address]. All rights reserved. This information is not intended as a substitute for professional medical care. Always follow your healthcare professional's instructions. Follow Up Care 08/21/2023 12:44:12 With:[facility] neurology Address: When:2-4 days With:Follow up with primary care provider Address:Unknown When:2-4 days With:Call Physician Referral Address:Unknown When:2-4 days [facility] 08-21-2023 Emergency department Discharge summary Discharge Instructions Thank you for allowing [facility] to assist you with your healthcare needs. [...] Schedule the Following Appointments Follow Up with [facility] neurology When Within 2-4 days Where: [...] has sustained an injury during the seizure. 0729-5584 [employer]. [address] [facility], [place] [address]. All rights reserved. This information is not intended as a substitute for professional medical care. Always follow your healthcare professional's instructions. Additional Information VACCINATE! IT SAVES LIVES! Members of the community who have not yet received the COVID-19 vaccine and would like to receive it can visit one of [facility] vaccine clinics. There are many vaccine clinic locations within the [facility]. For locations and available times, please visit www.gettheshot.coronavirus.[place].g ov/. It is important to note that some COVID mobile vaccine clinics are held outdoors and may be canceled in rainy or stormy conditions. To learn more about pediatric vaccinations (ages 5-11), we invite you to visit the [facility] webpage. https://www.Home Innss.org/pa ges/7249-Roetg-Fvmqmauemrj-Freque hdgp-Mqvwh-Ackdcenaj.html To learn more about the COVID-19 vaccine, we invite you to visit the CDC website for a list of frequently asked questions. https://www.cdc.gov/coronavirus/2 019-ncov/vaccines/faq.html [facility] Patient Portal Access Instructions: Stay connected with your healthcare team and access your personal medical information anytime with the [facility] Patient Portal. If you would like a full copy of your medical records please contact the [facility] Medical Records Department Wednesday through Wednesday between 8a.m. and 4:30p.m. Please follow the directions below to access the portal: 1.Access the email account you provided upon registration to the hospital.2.Look for an invitation email from [facility].3.Open the email and access the invitation link: Accept Invitation to [facility].Fill in the required noguera to create your account. Sign into www.[employer] with your username and password that you [...] you will allow to register on the [facility] Patient Portal for access to your information. You can also access the [facility] Patient Portal on the [employer] william. Simply click on Health Records under Health Data and then click on the [employer] logo. HOW TO SAFELY DISPOSE OF PRESCRIPTION [...] Call your local pharmacy or go to http://HipChat.Ultralife/2T8Nr0w to find one close to you.3.Make use of household items: Use cat litter or old coffee grounds to dispose medications if other options are not available. Mix your drugs with these household products, seal them in an airtight container and throw it into the garbage. Call [facility]: [phone] to be sure your drugs can be [...] aware that I should contact my doctor. Patient/Campus Executive Director Signature: Date/Time: Relationship to Patient: ____ Witness Name/Signature: Date/Time: [facility] 08-21-2023 Note Sinus rhythm EKG interpretation is noted and agreed to in [employer]. The interpretation of this patient's EKG contributed directly to the care and management of this patient. Electronic Signature: JACOB MARTÍNEZ DO 08/21/2023 14:34:37 [facility] 08-21-2023 Note ORIGINAL EXAMINATION: CT OF [...] 08/21/2023 2:08:47 PM Ordering Provider: JACOB MARTÍNEZ [facility] 08-21-2023 Evaluation + Plan note Diagnostic Tests PendingLamotrigine (Lamictal), Serum 08/21/23 [facility] 03-24-2023 Note HNO ID: [id number] Author: Ginette Wasserman PA-C Service: ? Author Type: Physician Turner Machine Operator Type: Progress Notes Filed: 03/24/2023 1:00 PM Note Text: HISTORY AND PHYSICAL Delon Haji 1990 REFERRING PHYSICIAN: No ref. provider found CHIEF COMPLAINT: left thigh abscess HPI: Delon is a 32 year old female with a complaint of a painful abscess on the left posterior thigh x 2 days. Denies fever or chills. The patient was seen in [facility] and was started on oral [...] taking: Reported on 03/03/2019) 30 capsule 1 Oglxcpxn-Qe-Vvz-Fe-FA tab Take 1 tablet by mouth once [...] is instructed to (more content not included)... [facility] 03-24-2023 History of Present illness Narrative HISTORY AND PHYSICAL Delon Haji 1990 REFERRING PHYSICIAN: No ref. provider found CHIEF COMPLAINT: left thigh abscess HPI: Delon is a 32 year old female with a complaint of a painful abscess on the left posterior thigh x 2 days. Denies fever or chills. The patient was seen in [facility] and was started on oral [...] taking: Reported on 03/03/2019) 30 capsule 1 Kmajrtec-Rj-Xhb-Fe-FA tab Take 1 tablet by mouth once [...] Cheryl Arizmendi RN documented in this encounter [facility] 03-12-2023 Instructions Cheryl Arizmendi RN - 03/12/2023 3:50 PM EDT The following instructions are important for you related to your office visit today with the [facility] General Surgeons. Instructions After ABSCESS [...] you should contact our office immediately @ [phone] and ask to be transferred to the General Surgery department. documented in this encounter [facility] 03-12-2023 Note HNO ID: [id number] Author: Cheryl Arizmendi RN Service: ? Author [...] Visit completed when applicable. Cheryl Arizmendi RN [facility] 03-12-2023 Nurse Note REVIEW OF SYSTEMS: General: [...] Tequila Barry LPN documented in this encounter [facility] 03-11-2023 Note HNO ID: [id number] Author: Davina Thomas APRN.INTERNATIONAL MARKETING EXECUTIVE Service: ? Author Type: Nurse Practitioner Type: [...] daily. (Patient not taking: Reported on 03/03/2019) Cbswxsdc-Ly-Tyn-Fe-FA tab Take 1 tablet by mouth once [...] - CONSULT TO GENERAL SURGERY Davina Thomas APRN.[facility] 03-11-2023 History of Present illness Narrative Images [...] daily. (Patient not taking: Reported on 03/03/2019) Hmysfczt-Ye-Cup-Fe-FA tab Take 1 tablet by mouth once [...] CONSULT TO GENERAL SURGERY Davina Thomas APRN.CNP documented in this encounter [facility] 06-01-2022 Telephone encounter Note Medication Access Team coordinated the following: [facility] Clin[facility]: MS/Neurology Prior Authorization Per the patient's insurance provider, Laura, the prior authorization for Lamotrigine 300mg SR (on-label) was approved. Authorization number: [id number] Authorization start date: 05/27/22 Authorization end date: 05/26/23 Non-Specialty Prescriptions: 1, 6-8 min Bettye Jacques [facility] 06-01-2022 Miscellaneous Notes Medication Access Team coordinated the following: [facility]: MS/Neurology Prior Authorization Per the patient's insurance provider, Laura, the prior authorization for Lamotrigine 300mg SR (on-label) was approved. Authorization number: [id number] Authorization start date: 05/27/22 Authorization end date: 05/26/23 Non-Specialty Prescriptions: 1, 6-8 min Bettye Jacques Per Laura rep Lamotrigine PA is still under review documented in this encounter [facility] 05-29-2022 Telephone encounter Note Per Laura BARNHART is still under review [facility] 10-21-2021 Hospital Discharge instructions Patient Education [...] and water are not available, use alcohol-based php consultant to keep from spreading the infection to [...] Yellow color of the eyes or skin [id number] [employer]. [address] [place] [address]. All rights reserved. This information is not intended as a substitute for professional medical care. Always follow your healthcare professional's instructions. [facility] 10/21/2021 16:21:25 With:Call Physician Referral Address:Unknown When:2-4 days [facility] 09-19-2018 History of Past i llness Narrative [...] of this encounter (statuses as of 03/11/2023) [facility] History of Past illness Narrative* [...] of this encounter (statuses as of 03/24/2023) [facility] of [facility] illness Narrative* [...] of this encounter (statuses as of 09/22/2023) [facility] Narrative* [...] of this encounter (statuses as of 09/27/2023) [facility] Narrative* [...] of this encounter (statuses as of 09/27/2023) [facility] Narrative* [...] of this encounter (statuses as of 11/12/2023) [facility] No data available for this section [facility] Evaluation note* Diagnosis Seizure Other convulsions [facility] Diagnosis Cutaneous abscess of buttock- Primary Cellulitis and abscess of buttock [facility] Abscess of left thigh- Primary Cellulitis and abscess of leg, except foot [facility] Injury of finger of left hand, initial encounter- Primary Closed fracture of tuft of distal phalanx of finger Closed fracture of distal phalanx or phalanges of hand Subungual hematoma of finger, initial encounter [facility] Injury of finger of left hand, initial encounter Closed fracture of tuft of distal phalanx of finger Closed fracture of distal phalanx or phalanges of hand documented [facility] encounter [facility]* Diagnosis Closed fracture of tuft of distal phalanx of finger- Primary Closed fracture of distal phalanx or phalanges of hand Pain of finger of left hand Pain in limb documented in this encounter [facility] note* Diagnosis Nonintractable epilepsy without status epilepticus, unspecified epilepsy type- Primary [facility] Diagnosis Procedure not carried out- Primary Procedure not carried out for other reasons documented in this encounter [facility] note* Diagnosis Closed fracture of tuft of distal phalanx of finger- Primary Closed fracture of distal phalanx or phalanges of hand documented in this encounter [facility]* Diagnosis Injury of finger of left hand, initial encounter documented [facility] this encounter [facility]* Diagnosis Local-rel symptc epi w cmplx prt seiz,not ntrct,w/o stat epi- Primary [facility] No data available for this section [facility] Reason for referral (narrative)* Diagnostic Procedure Only (Routine) - Pending Review Specialty Diagnoses / Procedures Referred By Contac t Referred To Contact XR IMAGING Diagnoses Closed fracture of tuft of distal phalanx of finger Procedures XR DIGIT GENERAL 3V FRONTAL/LAT/OBL LEFT RADEX FINGR MINIMUM 2 VIEWS Becky Flor PA-C [address] [place] [address] [place] [address] Referral ID Status Reason Start Date Expiration Date Visits Requested Visits Authorized [id number] Pending Review Auto-Generat ed Referral 12/08/2023 01/06/2025 1 1 [facility] for referral (narrative)* Diagnostic Procedure Only (Urgent) - Closed Specialty Diagnoses / Procedures Referred By Contac t Referred To Contact XR IMAGING Diagnoses Injury of finger of left hand, initial encounter Procedures XR DIGIT GENERAL 3V FRONTAL/LAT/OBL LEFT RADEX FINGR MINIMUM 2 VIEWS Meg Ortez APRN.INTERNATIONAL MARKETING EXECUTIVE [address] [place] [address] [place] [address] Referral ID Status Reason Start Date Expiration Date V isits Requested Visits Authorized [id number] Closed Auto-Generate d Referral 09/22/2023 10/21/2024 1 1 [facility] for visit Narrative* Diagnostic Procedure Only (Urgent) - Closed Specialty Diagnoses / Procedures Referred By Contac t Referred To Contact XR IMAGING Diagnoses Injury of finger of left hand, initial encounter Procedures XR DIGIT GENERAL 3V FRONTAL/LAT/OBL LEFT RADEX FINGR MINIMUM 2 VIEWS Meg Ortez APRN.INTERNATIONAL MARKETING EXECUTIVE [address] [place] [address] [place] [address] Referral ID Status Reason Start Date Expiration Date V isits Requested Visits Authorized [id number] Closed Auto-Generate d Referral 09/22/2023 10/21/2024 1 1 [facility] Reason for Referral Specialty Diagnoses / Procedures Referred By Contac t Referred To Contact Orthopedics Diagnoses Injury of finger of left hand, initial encounter Closed fracture of tuft of distal phalanx of finger Procedures CONSULT TO ORTHOPAEDICS OFFICE/OUTPATIENT [facility] 60 MINUTES Meg Ortez APRN.INTERNATIONAL MARKETING EXECUTIVE [address] [place] [address] Referral ID Status Reason Start Date Expiration Date Visits Requested Visits Authorized [id number] Authorized PCP Requested Referral 09/22/2023 09/21/2024 1 1 Specialty Diagnoses / Procedures Referred By Contac t Referred To Contact XR IMAGING Diagnoses Injury of finger of left hand, initial encounter Procedures XR DIGIT GENERAL 3V FRONTAL/LAT/OBL LEFT RADEX FINGR MINIMUM 2 VIEWS Meg Ortez APRN.INTERNATIONAL MARKETING EXECUTIVE [address] [place] [address] [place] [address] Referral ID Status Reason Start Date Expiration Date V isits Requested Visits Authorized [id number] Closed Auto-Generate d Referral 09/22/2023 10/21/2024 1 1 Specialty Diagnoses / Procedures Referred By Contac t Referred To Contact General Surgery Diagnoses Cutaneous abscess of buttock Procedures CONSULT TO GENERAL SURGERY OFFICE/OUTPATIENT [facility] 60-74 MINUTES Davina Thomas APRN.CNP [address] [place] [address] Referral ID Status Reason Start Date Expiration Date Visits Requested Visits Authorized [id number] Authorized PCP Requested Referral 03/11/2023 03/10/2024 1 1 Specialty Diagnoses / Procedures Referred By Huber ernandez Referred To Contact Diagnoses Seizure Procedures MRI BRAIN WITHOUT CONTRAST WI MRI BRAIN Nery Ziegler MBBS [address] [address] Referral ID Status Reason Start Date Expiration Date Visits Re quested Visits Authorized [id number] Closed 12/23/2021 01/17/2023 1 1 Summary Purpose [...] Care Team (unrecognized sect ion and content) Transportation Engineer Relationship Specialty Start Date End Date Nery Ziegler MBBS [address] [phone] PCP - General Neurology 07/26/21 Transportation Engineer Relationship Specialty Start Date End Date Tonja Xie SUPERVISOR [employer]-INTERNATIONAL MARKETING EXECUTIVE [address] [id number] Nurse Practitioner Neurology 02/24/22 [facility] [address] [address] 02/24/22 Transportation Engineer Relationship Specialty Start Date End Date Tonja Xie APRN-INTERNATIONAL MARKETING EXECUTIVE [address] [address] Nurse Practitioner Neurology 02/24/22 [facility] [address] [address] 02/24/22 Transportation Engineer Relationship Specialty Start Date End Date Tonja Xie, SUPERVISOR [employer]-INTERNATIONAL MARKETING EXECUTIVE [address] [phone] Nurse Practitioner Neurology 02/24/22 [facility] [address] [address] 02/24/22 Reason for Visit (unrecogniz ed section and content) Reason Comments New Middle finger Fracture Middle finger Specialty Diagnoses / Procedures Referred By Huber ernandez Referred To Contact Orthopedics Diagnoses Injury of finger of left hand, initial encounter Closed fracture of tuft of distal phalanx of finger Procedures CONSULT TO ORTHOPAEDICS OFFICE/OUTPATIENT [facility] 60 MINUTES Meg Ortez, SUPERVISOR [employer].INTERNATIONAL MARKETING EXECUTIVE [address] [place] [address] [facility] [address] [place] [address] Referral ID Status Reason Start Date Expiration Date V isits Requested Visits Authorized [id number] Closed PCP Requested Referral 09/22/2023 09/21/2024 1 1 Specialty Diagnoses / Procedures Referred By Huber ernandez Referred To Contact Diagnoses Seizure Procedures MRI BRAIN WITHOUT CONTRAST WI MRI BRAIN Nery Ziegler MBBS [address] [address] Referral ID Status Reason Start Date Expiration Date Visits Re quested Visits Authorized [id number] Closed 12/23/2021 01/17/2023 1 1 Reason Onset [...] section and content) DATE CREATED AUTHOR 04/04/2022 [facility] DATE CREATED AUTHOR AUTHOR'S ORGANIZ ATION 01/10/2024 [facility] DATE CREATED AUTHOR AUTHOR'S ORGANIZ ATION 01/13/2024 [facility] DATE CREATED AUTHOR AUTHOR'S ORGANIZ ATION 03/22/2024 [facility] ([place] DATE CREATED AUTHOR AUTHOR'S ORGANIZ ATION 01/02/2025 [facility] DATE CREATED AUTHOR AUTHOR'S ORGANIZ ATION 05/12/2025 [facility] Source Comments (unrecognize d section and content) In the event this informatio n is protected by the Federal Confidentiality of Alcohol and Drug Abuse Patient Records regulations: The Federal rules restrict any use of the information to criminally investigate or prosecute any alcohol or drug abuse patient.[facility] the event this information is protected by the Federal Confidentiality of Alcohol and Drug Abuse Patient Records regulations: The Federal rules restrict any use of the information to criminally investigate or prosecute any alcohol or drug abuse patient.[facility] the event this information is protected by the Federal Confidentiality of Alcohol and Drug Abuse Patient Records regulations: The Federal rules restrict any use of the information to criminally investigate or prosecute any alcohol or drug abuse patient.[facility] the event this information is protected by the Federal Confidentiality of Alcohol and Drug Abuse Patient Records regulations: The Federal rules restrict any use of the information to criminally investigate or prosecute any alcohol or drug abuse patient.[facility] the event this information is protected by the Federal Confidentiality of Alcohol and Drug Abuse Patient Records regulations: The Federal rules restrict any use of the information to criminally investigate or prosecute any alcohol or drug abuse patient.[facility] the event this information is protected by the Federal Confidentiality of Alcohol and Drug Abuse Patient Records regulations: The Federal rules restrict any use of the information to criminally investigate or prosecute any alcohol or drug abuse patient.[facility] the event this information is protected by the Federal Confidentiality of Alcohol and Drug Abuse Patient Records regulations: The Federal rules restrict any use of the information to criminally investigate or prosecute any alcohol or drug abuse patient.[facility] the event this information is protected by the Federal Confidentiality of Alcohol and Drug Abuse Patient Records regulations: The Federal rules restrict any use of the information to criminally investigate or prosecute any alcohol or drug abuse patient.[facility] FOR RECORDS PERTAINING TO PATIENTS [...] BE BASED ON THE PRIMARY CLINICAL RECORDS. [facility]. provides no warranty or guarantee of the accuracy or completeness of information in this document.
[2025-07-22 21:54] VITALS: BP 136/84; PULSE 98; RESP 18; TEMP 35.8; O2SAT 99
== END 2025-07-22 21:55 | disposition home or self-care (01) ==
PROVIDERS: Emergency Provider Emergency Medicine; Visit Provider Emergency Medicine
DX: R56.9 Unspecified convulsions (principal); F17.200 Nicotine dependence, unspecified, uncomplicated
CPT/HCPCS: 70450; 71045; 80048; 84703; 85025; 93005; 96374; 96376; 99284; A4216